=== PATIENT | male | born 1955 | race Caucasian/White ===

== ENCOUNTER 2020-06-06 03:15 | Inpatient (IN) | payer MEDICARE, OTHER, SELFPAY ==
[2020-06-06] VITALS (15 sets, daily range): BP systolic 100–179; BP diastolic 63–86; PULSE 56–87; RESP 12–22; TEMP 35.7–37; O2SAT 84–99; BMI 27.3
--- NOTE | 2020-06-06 03:25 | XR_ITS ---
EXAMINATION: XR CHEST CLINICAL INFORMATION: Chest pain COMPARISON: 02/05/2017 TECHNIQUE: Frontal view of the chest was obtained. FINDINGS: Cardiac leads overlie the chest. The lungs are well expanded. There is no focal consolidation, edema, or effusion. No pneumothorax. The cardiomediastinal silhouette is within normal limits. No acute osseous abnormality. IMPRESSION: No acute pulmonary finding.
--- NOTE | 2020-06-06 03:25 | ECG_ITS ---
Test Reason : WEAKNESS Blood Pressure : / mmHG Vent. Rate : 073 BPM Atrial Rate : 073 BPM P-R Int : 168 ms QRS Dur : 146 ms QT Int : 440 ms P-R-T Axes : 064 049 -11 degrees QTc Int : 484 ms Normal sinus rhythm Nonspecific ST abnormality Inferior leads Right bundle branch block Abnormal ECG When compared with ECG of 05-FEB-2017 10:31, No significant change was found Referred By: Kvng Hernandez Electronically Signed By:DIANNE RDZ MD
--- NOTE | 2020-06-06 03:27 | CT_ITS ---
EXAMINATION: CT HEAD WITHOUT CONTRAST CLINICAL INFORMATION: Dizziness. Weakness. COMPARISON: 02/06/2017 TECHNIQUE: Contiguous axial imaging was performed from the skull base to vertex without intravenous contrast. This CT examination was performed using dose optimization techniques as appropriate, variously including the following: * Automated exposure control * Adjustment of mA and/or kV according to patient size (this includes techniques or standardized protocols for targeted exams where dose is matched to indication/reason for exam; i.e. extremities or head) Use of iterative reconstruction technique DLP: 729 mGy-cm. FINDINGS: There is no evidence of acute intracranial hemorrhage or territorial infarction. No abnormal mass effect or midline shift is seen. Chronic high right frontoparietal infarct. Chronic left frontoparietal infarct as well. There is Wolfe to white matter differentiation is otherwise well preserved. No extra-axial fluid collections are identified. No hydrocephalus. Proportional prominence of the ventricles and sulcal spaces is consistent with moderate volume loss. Patchy periventricular and deep white matter hypoattenuation is consistent with moderate small vessel ischemic changes. The osseous structures and soft tissues are normal. The mastoid air cells and visualized portions of the paranasal sinuses are well aerated. IMPRESSION: No acute intracranial pathology. Volume loss with small vessel ischemic changes. Chronic bilateral frontoparietal infarcts.
[2020-06-06] MEDS: Albuterol Sulfate (0.083%) 2.5 MG/3 ML VIAL.NEB 5 MG INHALE ×2 (03:54→06:24)
[2020-06-06] MEDS: methylPREDNISolone Sod Succ/PF 125 MG/2 ML VIAL 60 MG IVPUSH (03:57)
--- NOTE | 2020-06-06 04:04 | ED.WEAKNESS ---
HPI - Weakness General Chief complaint: Weakness Stated complaint: WEAKNESS Time Seen by Provider: 06/06/20 03:24 Source: patient Mode of arrival: ambulatory History of Present Illness HPI Narrative: patient states of generalized weakness for the past Couple of hours. States some mild shortness of breath however no cough. denies chest pain denies abdominal pain. Patient states got up to to go to the bathroom this evening at about 03:00 and felt overall weakness. Patient went to bed at 21:00 last night and felt okay. patient does have an old stroke in which family states has bilateral weakness which patient now states feeling more weakness to all extremities x4. Denies headache denies change in vision denies any new numbness MD Complaint: generalized weakness Onset (ago): hour(s) ( 3) Location: generalized Related Data Allergies Allergy/AdvReac Type Severity Reaction Status Date / Time No Known Allergies Allergy Unknown NKA Unverified 05/12/20 14:44 Review of Systems Review of Systems: Constitutional : No Weight loss, No Fever, No Chills, No Night Sweats, No Fatigue, No Malaise ENT/Mouth : No Hearing loss, No Ear Pain, No Nasal Congestion, No Sinus Pain, No Hoarseness, No sore throat, No Rhinorrhea, No Swallowing Difficulty Eyes: No Eye Pain, No Swelling, No Redness, No Foreign Body, No Discharge, No Vision Changes Cardiovascular : No Chest Pain, No SOB, No Dyspnea on Exertion, No Orthopnea, No Edema, No Palpitations Respiratory : No Cough, No Sputum, No Wheezing, No Smoke Exposure, No Dyspnea Gastrointestinal : No Nausea, No Vomiting, No Diarrhea, No Constipation, No abdominal Pain, No Hematochezia, No Melena Genitourinary : no irregular bleeding, No Dysuria, No Urinary Frequency, No Hematuria, No Urinary Incontinence, No Urgency, No Flank Pain, No Urinary Flow Changes, No Hesitancy Musculoskeletal : No joint pain, No Myalgias, No Joint Swelling Skin : No Skin Lesions, No rash Neuro : generalizedWeakness, No Numbness, No Paresthesias, No Loss of Consciousness, No Dizziness, No Headache Psych : No Anxiety/Panic, No Depression, No SI/HI/AH/VH, No Social Issues, Heme/Lymph: No Bruising, No Bleeding,No Lymphadenopathy Endocrine : No Polyuria, No Polydipsia, No Temperature Intolerance [facility] Past Medical History Medical History (Updated 06/06/20 @ 04:26 by Kvng Hernandez DO) COPD (chronic obstructive pulmonary disease) CVA (cerebral vascular accident) Diabetes mellitus type 1 Dizziness Hypertension Surgical History (Updated 06/06/20 @ 04:05 by Kvng Hernandez DO) History of percutaneous coronary intervention Social History Social History Smoking Status: Current some day smoker Use of substances other than those prescribed or required for medical reasons: No Advance Directives: No Physical Exam Vital Signs: Vital Signs: Vital Signs Temp Pulse Resp BP Pulse Ox 06/06/20 04:00 73 18 06/06/20 03:25 20 84 L 06/06/20 03:22 97.9 F 71 18 142/75 H 94 Body Mass Index 27.3 pulse ox 94% reviewed by me is normal Appearance: Alert. Oriented X3. No acute distress. Eyes: Pupils equal, round and reactive to light. ENT: Pharynx normal. Neck: Normal inspection. Neck supple. No lymph nodes noted. No crepitus CVS: Normal heart rate and rhythm. Pulses normal. Normal S1 and S2 Respiratory: mild respiratory distress. Breath sounds with bilateral Wheezing. No rales no rhonchi Abdomen: Soft and nontender. No rigidity. No distention. good BS x4 Skin: Skin warm and dry. Normal skin color. Normal skin turgor. Extremities: No lower extremity edema. Neurovascular intact to all extremities however generalized weakness to extremities x4 no slurred speech. No time deviation. No Lacerations. No Rash Neuro: Oriented X 3. No motor deficit. No sensory deficit. Moving all extermities. No slurred speech. Course Course Course Narrative: patient with generalized weakness however differential diagnosis does include stroke however no tPA secondary to out of window differential diagnosis includes stroke, COPD exacerbation, acute coronary syndrome, UTI Reevaluation(s) Reevaluation #1: further history noted that patient has been weak for the past 2 days and unable to care for self. Patient unable to walk tonight in which the called 911 Time: 04:23 Reevaluation #2: improvement lung function with IV medications and albuterol. I believe this patient has COPD exacerbation with hypoxia will start sepsis protocol IV antibiotics await for lactate acid I spoke with hospitalist in regards to admission will accept Time: 04:24 [facility] Medical Records Attestation: I reviewed the patient's medical records. Medical records narrative: last admission was in January of 2017 with discharge of CVA Lab Data Result diagrams: 06/06/20 03:59 06/06/20 03:59 Labs: Lab Results 06/06/20 Range/Units 03:59 WBC 8.2 (4.8-10.8) X10*3/uL RBC 4.73 (4.60-5.80) X10*6/uL Hgb 14.0 (14.0-18.0) g/dl Hct 41.8 L (42-52) % MCV 88.4 (80-98) fL MCH 29.6 (27.0-33.0) pg MCHC 33.5 (31.0-36.0) g/dl RDW 12.8 (11.0-16.0) % Plt Count 140 L (160-400) X10*3/uL MPV 8.6 L (9.4-12.4) fL Immature Gran % (Auto) 0.7 H (0.0-0.4) % Neut % (Auto) 60.2 (45-73) % Lymph % (Auto) 23.7 (20-40) % Tarrant % (Auto) 11.2 H (2-11) % Eos % (Auto) 3.3 (0-4) % Baso % (Auto) 0.9 (0-2) % Lymph # (Auto) 1.9 (1.2-4.9) X10*3/uL T[place] # (Auto) 0.9 (0.1-1.2) X10*3/uL Eos # (Auto) 0.3 (0.0-0.4) X10*3/uL Baso # (Auto) 0.1 (0.0-0.2) X10*3/uL Abs Immat Gran (auto) 0.06 H (0.00-0.03) X10*3/uL Absolute Neuts (auto) 4.9 (2.0-8.3) X10*3/uL Absolute Nucleated RBC 0.000 (0.0-0.012) X10*3/uL Nucleated RBC % (auto) 0.0 (0.0-0.2) /100WBC ECG Data Attestation: I personally reviewed and interpreted this ECG as follows: Interpretation: right bundle branch block. normal p.r. intervals. 73 beats per minute. Left side axis. Nonspecific ST changes Critical Care Time Critical Care Time Critical Care Time: Yes Total Critical Care Time: 35 Attestation: I tested critical care time spent with patient Discharge Plan Discharge Clinical Impression: COPD with hypoxia, Weakness
[2020-06-06 04:08] LABS: MANUAL DIFF FLAG NO
[2020-06-06 04:10] LABS: Basophils Absolute Auto 0.1 X10*3/uL (0.0-0.2); Basophils Percent Auto 0.9 % (0-2); Eosinophils Absolute Auto 0.3 X10*3/uL (0.0-0.4); Eosinophils Percent Auto 3.3 % (0-4); Hematocrit 41.8 % (42-52); Imm Gran Abs Auto 0.06 X10*3/uL (0.00-0.03); Imm Gran Pct Auto 0.7 % (0.0-0.4); Lymphocytes Absolute Auto 1.9 X10*3/uL (1.2-4.9); Lymphocytes Percent Auto 23.7 % (20-40); Mean Corpuscular HGB Conc 33.5 g/dl (31.0-36.0); Mean Corpuscular Hemoglobin 29.6 pg (27.0-33.0); Mean Corpuscular Volume 88.4 fL (80-98); Mean Platelet Volume 8.6 fL (9.4-12.4); Monocytes Absolute Auto 0.9 X10*3/uL (0.1-1.2); Monocytes Percent Auto 11.2 % (2-11); Neutrophils Absolute Auto 4.9 X10*3/uL (2.0-8.3); Neutrophils Percent Auto 60.2 % (45-73); Platelet Count 140 X10*3/uL (160-400); Red Blood Count 4.73 X10*6/uL (4.60-5.80); Red Cell Distribution Width 12.8 % (11.0-16.0); White Blood Count 8.2 X10*3/uL (4.8-10.8)
[2020-06-06] MEDS: levoFLOXacin/D5W 750 MG/150 ML PIGGYBACK 100 MG IV (04:37)
[2020-06-06 04:38] LABS: Lactic Acid 2.5 mmol/L (0.5-2.0)
[2020-06-06 04:39] LABS: B Type Natriuretic Peptide 71 pg/mL (<100); Troponin-I High Sensitivity 8.6 ng/L (<3.5-35.0)
[2020-06-06 04:51] LABS: Alanine Aminotransferase 14 U/L (0-40); Albumin Level 3.8 g/dL (3.5-5.0); Alkaline Phosphatase 149 U/L (39-117); Anion Gap 14 (12-20); Aspartate Amino Transferase 9 U/L (5-37); Bilirubin Direct < 0.2 mg/dL (0.0-0.5); Bilirubin Total 0.5 mg/dL (0.0-1.0); Blood Urea Nitrogen 30 mg/dL (9-16); Calcium 8.6 mg/dL (8.4-10.2); Carbon Dioxide 24 mmol/L (22-29); Chloride 102 mmol/L (96-108); Creatinine Clr Calc Pharmacy 42.4; Estimated Glomerular Filt Rate 43; Glucose Random 332 mg/dL (60-115); Lipase 57 U/L (8-78); Potassium 4.3 mmol/l (3.3-5.1); Sodium 136 mmol/L (135-145); Total Protein 6.8 g/dL (6.5-8.0)
--- NOTE | 2020-06-06 05:23 | PM.IMHP ---
History of Present Illness Date of Service: 06/06/20 Chief Complaint: weakness, hypoxic This is a 64-year-old male with small to past medical history is as below who presents to the hospital with complaints of generalized weakness, and shortness of breath. Patient is slightly confused and not sure why he is in the hospital but he knows that he has been weak . patient himself denies any shortness of breath coughing or sputum production. He has no fever or chills. On arrival to the ED patient was hypoxic at 84%. Patient does not use oxygen at baseline. He is also complaining of urinary retention that has been going on for few days. Denies any dysuria or urgency. review of systems otherwise negative on arrival to the ED patient's temperature of 97.9?, pulse rate 71, respiratory rate of 18, blood pressure of 142/75, oxygen of 94% on room air that dropped to 84% on ambulation in the room. Labs are significant for a BUN of 30, creatinine of 1.6, lactic acid of 2.5 past medical history is obtained from chart past medical history: CAD, COPD, CVA with left-sided weakness, depression, hypertension, hyperlipidemia, diabetes mellitus, pneumonia past surgical history: PCI with stents, tonsillectomy family history: Unknown social history: Comes from home, lives with his , the currently nonsmoker, denies any alcohol or illicit drug use Review of Systems Review of Systems: Yes all other systems are reviewed and are negative [facility] Medical History COPD (chronic obstructive pulmonary disease) CVA (cerebral vascular accident) Diabetes mellitus type 1 Dizziness Hypertension Surgical History History of percutaneous coronary intervention Social History Smoking Status: Current some day smoker Use of substances other than those prescribed or required for medical reasons: No Advance Directives: No Meds Allergies Allergy/AdvReac Type Severity Reaction Status Date / Time No Known Allergies Allergy Unknown NKA Unverified 05/12/20 14:44 Home Medications Medication Instructions Recorded Confirmed Type atenolol 2 tab PO DAILY 06/06/20 06/06/20 History clopidogrel 1 tab PO DAILY 06/06/20 06/06/20 History glipizide 1 tab PO BID 06/06/20 06/06/20 History hydralazine 1 tab PO BID 06/06/20 06/06/20 History lorazepam 1 tab PO BID PRN 06/06/20 06/06/20 History lovastatin 1 tab PO BEDTIME 06/06/20 06/06/20 History spironolactone 1 tab PO DAILY 06/06/20 06/06/20 History venlafaxine 1 cap PO DAILY 06/06/20 06/06/20 History venlafaxine 1 cap PO DAILY 06/06/20 06/06/20 History Physical Exam Vital Signs and Narrative: Vital Signs: Last Vital Signs Temp 97.9 F 06/06/20 03:22 Pulse 73 06/06/20 04:00 Resp 18 06/06/20 04:00 BP 142/75 H 06/06/20 03:22 Pulse Ox 84 L 06/06/20 03:25 Body Mass Index 27.3 Const: General: cooperative and no acute distress Orientation/consciousness: patient oriented x3 Eyes: General: appearance normal, both eyes and all related structures Pupils: Equal, round and reactive pupils present Resp: Other: no wheezing, rhonchi Effort & Inspection: normal respiratory effort and able to speak in complete sentences Auscultation: clear to auscultation bilaterally Cardio: Rate: regular rate Rhythm: regular rhythm GI: Palpation (GI): Soft to palpation Auscultation: normal bowel sounds Skin: General skin exam: no rashes or lesions noted Neuro: General: patient oriented x3 Cranial nerves: Yes Equal, round and reactive pupils present Cognition (Neuro): normal cognition Extrem: General: Yes normal to inspection and Yes no pedal edema Results Labs Labs: Laboratory Tests 06/06/20 06/06/20 06/06/20 03:59 03:59 03:59 WBC 8.2 RBC 4.73 Hgb 14.0 Hct 41.8 L MCV 88.4 MCH 29.6 MCHC 33.5 RDW 12.8 Plt Count 140 L MPV 8.6 L Immature Gran % (Auto) 0.7 H Neut % (Auto) 60.2 Lymph % (Auto) 23.7 Snyder % (Auto) 11.2 H Eos % (Auto) 3.3 Baso % (Auto) 0.9 Lymph # (Auto) 1.9 Snyder # (Auto) 0.9 Eos # (Auto) 0.3 Baso # (Auto) 0.1 Abs Immat Gran (auto) 0.06 H Absolute Neuts (auto) 4.9 Absolute Nucleated RBC 0.000 Nucleated RBC % (auto) 0.0 Sodium 136 Potassium 4.3 Chloride 102 Carbon Dioxide 24 Anion Gap 14 BUN 30 H Creatinine 1.60 H Estim Creat Clear Calc 42.4 Estimated GFR 43 Random Glucose 332 H Lactic Acid 2.5 H* Calcium 8.6 Total Bilirubin 0.5 Direct Bilirubin < 0.2 AST 9 ALT 14 Alkaline Phosphatase 149 H Troponin I High Sens B-Natriuretic Peptide Total Protein 6.8 Albumin 3.8 Lipase 57 06/06/20 03:59 WBC RBC Hgb Hct MCV MCH MCHC RDW Plt Count MPV Immature Gran % (Auto) Neut % (Auto) Lymph % (Auto) Snyder % (Auto) Eos % (Auto) Baso % (Auto) Lymph # (Auto) Snyder # (Auto) Eos # (Auto) Baso # (Auto) Abs Immat Gran (auto) Absolute Neuts (auto) Absolute Nucleated RBC Nucleated RBC % (auto) Sodium Potassium Chloride Carbon Dioxide Anion Gap BUN Creatinine Estim Creat Clear Calc Estimated GFR Random Glucose Lactic Acid Calcium Total Bilirubin Direct Bilirubin AST ALT Alkaline Phosphatase Troponin I High Sens 8.6 B-Natriuretic Peptide 71 Total Protein Albumin Lipase Assessment and Plan (1) COPD with hypoxia: Status: Acute (2) Lactic acidosis: Status: Acute (3) Weakness: Status: Acute (4) Failure to thrive: Status: Acute (5) Diabetes mellitus type 1: Status: Acute (6) Hypertension: Status: Acute this is a 64-year-old male who presents to the hospital with hypoxia. # acute hypoxic respiratory failure - 2/2 copd exacerbation - has mild cough, no wheezing, no sputum production - no evidence of pneumonia or COVID-19 infection plan: - received high-dose of Solu-Medrol in the ED, will give prednisone 20 mg daily as patient has no wheezing and very minimal COPD symptoms - DuoNeb scheduled and p.r.n. - O2 as required # acute on chronic COPD exacerbate - no pneumonia, no evidence of COVID-19 infection - patient received high-dose of Solu-Medrol in the ED, will continue with prednisone, DuoNeb p.r.n. and scheduled # lactic acidosis - unclear source possibly secondary to hypoxia - no evidence of infection - UA collection is pending - will start him on fluid and trend # weakness - most likely decondition - will consult PT OT for possible placement # hypertension - stable - continue home regimen # diabetes - will start low-dose sliding scale insulin - diabetic diet DVT prophylaxis: Lovenox date of service 06/06/2020
[2020-06-06 05:53] LABS: Glucose Urine UA 500 MG/DL (NEG); Leukocyte Esterase Urine NEG (NEG); Nitrite Urine NEG (NEG); PH 5.5 (5.0-8.0); Urine Blood TRACE (NEG); Urine Ketones NEG (NEG); Urine Protein TRACE MG/DL (NEG-TRACE)
[2020-06-06 05:54] LABS: Appearance Urine CLEAR; Color Urine COLORLESS
[2020-06-06 05:59] LABS: RBC Urine 0-2 /HPF (0); Squamous Epithelial Cell Urine TRACE /LPF; WBC Urine 0-2 /HPF (0-4)
[2020-06-06 06:06] LABS: Reflex Lactate? Lactic Acid Added
--- NOTE | 2020-06-06 06:27 | PC.NURSE ---
urine incontinent. patient became hypoxic in 90s with adventicious breath sounds. 2nd 1hr long givne.
--- NOTE | 2020-06-06 06:29 | PC.NURSE ---
attempted to give report. rn unavailable.
--- NOTE | 2020-06-06 06:30 | PC.NURSE ---
REPORT GIVEN TO ERIK MARTINEZ. NO QUESTIONS
[2020-06-06 07:11] LABS: ~Lactic Acid-LAB USE ONLY 2.2 mmol/L (0.5-2.0)
[2020-06-06 07:38] LABS: Glucose, Whole Blood 372 mg/dL (60-115)
[2020-06-06] MEDS: predniSONE 20 MG TABLET PO (07:55)
[2020-06-06] MEDS: Venlafaxine HCl ER 150 MG CAP.ER.24H PO (07:56)
[2020-06-06] MEDS: Venlafaxine HCl ER 75 MG CAP.ER.24H PO (07:56)
[2020-06-06] MEDS: Clopidogrel Bisulfate 75 MG TABLET PO (07:56)
[2020-06-06] MEDS: Lactated Ringers 1,000 ML 80 ML IVCONT ×2 (07:56→20:22)
[2020-06-06] MEDS: atenoloL 50 MG TABLET 100 MG PO (08:03)
[2020-06-06] MEDS: Spironolactone 25 MG TABLET PO (08:03)
[2020-06-06] MEDS: hydrALAZINE HCl 25 MG TABLET PO ×2 (08:04→21:35)
[2020-06-06] MEDS: Enoxaparin Sodium 40 MG/0.4 ML SYRINGE SUBCUT (08:04)
[2020-06-06] MEDS: 0.9 % Sodium Chloride Flush 3 ML SYRINGE IVFLUSH ×2 (08:05→17:17)
[2020-06-06] MEDS: Albuterol/Iprat 2.5/0.5MG 3 ML AMPUL.NEB INHALE ×2 (08:09→19:31)
[2020-06-06 08:22] LABS: Reflex Lactate? 2 Y
[2020-06-06] MEDS: Insulin Lispro 100 UNIT/ML 3 ML VIAL SUBCUT ×3 (09:08→17:17)
[2020-06-06] MEDS: glipiZIDE 10 MG TABLET PO ×2 (09:08→21:35)
[2020-06-06 09:15] LABS: ~Lactic Acid-LAB USE ONLY 2.8 mmol/L (0.5-2.0)
--- NOTE | 2020-06-06 11:42 | MHC.CLN ---
RECOMMEND 1800 DM 2GM NA DIET R/T HX DM AND CAD
[2020-06-06 11:44] LABS: Glucose, Whole Blood 387 mg/dL (60-115)
[2020-06-06 13:48] LABS: SARS COV2 PCR INHOUSE NEGATIVE (Negative)
--- NOTE | 2020-06-06 16:03 | HO.PM.IMPN ---
Subjective Subjective Date of Service: 06/06/20 Interval History: COPD exacerbation, htn Review of Systems patient says shortness of breath slowly improving, denies any cough or phlegm Physical Exam Vital Signs: Vital Signs: Vital Signs Temp Pulse Resp BP Pulse Ox 06/06/20 15:49 97.6 F 71 18 161/86 H 96 06/06/20 14:35 20 161/83 H 97 06/06/20 12:00 96.3 F L 71 06/06/20 08:13 98 F 86 20 06/06/20 08:04 86 138/80 06/06/20 08:03 86 138/80 06/06/20 07:37 98 F 56 20 100/63 99 06/06/20 07:00 96.8 F 87 22 H 179/80 H 98 06/06/20 06:00 18 06/06/20 05:55 98.6 F 80 12 174/68 H 06/06/20 04:00 73 18 06/06/20 03:25 20 84 L 06/06/20 03:22 97.9 F 71 18 142/75 H 94 Body Mass Index 27.3 Physical exam: cvs: rrr, [id number] , no murmur res: diminished breath sound, has wheezing abd: no rebound or guarding ,nt, bs present. ext pulses present , no cyanosis neuro: axo3 , nonfocal. Objective Data Current Medications Generic Name Dose Route Start Last Admin Trade Name Freq PRN Reason Stop Dose Admin Acetaminophen 650 mg 06/06/20 07:27 Acetaminophen 325 Mg Tablet PO Q6H PRN Pain, Mild (Pain Scale 1-3) Albuterol/Ipratropium 3 ml 06/06/20 08:00 06/06/20 13:22 Albuterol/Iprat 2.5/0.5mg 3 Ml Ampul.Neb INHALE Not Given RQ6H WHILE AWAKE RASHI Albuterol/Ipratropium 3 ml 06/06/20 05:20 Albuterol/Iprat 2.5/0.5mg 3 Ml Ampul.Neb INHALE RQ4H PRN Shortness of Breath/Wheezing Atenolol 100 mg 06/06/20 09:00 06/06/20 08:03 Atenolol 50 Mg Tablet PO 100 mg DAILY [facility] Administration Protocol Clopidogrel Bisulfate 75 mg 06/06/20 09:00 06/06/20 07:56 Clopidogrel Bisulfate 75 Mg Tablet PO 75 mg DAILY RASHI Administration Docusate Sodium 100 mg 06/06/20 07:27 Docusate Sodium 100 Mg Capsule PO DAILY PRN Constipation Enoxaparin Sodium 40 mg 06/06/20 08:00 06/06/20 08:04 Enoxaparin Sodium 40 Mg/0.4 Ml Syringe SUBCUT 40 mg Q24H RASHI Administration Glipizide 10 mg 06/06/20 09:00 06/06/20 09:08 Glipizide 10 Mg Tablet PO 10 mg BID RASHI Administration Hydralazine HCl 25 mg 06/06/20 09:00 06/06/20 08:04 Hydralazine Hcl 25 Mg Tablet PO 25 mg BID RASHI Administration Protocol Lactated Ringer's 1,000 mls @ 80 mls/hr 06/06/20 05:45 06/06/20 07:56 Lr IVCONT 80 mls/hr .[id number] RASHI Administration Insulin Human Lispro 0 unit 06/06/20 07:30 06/06/20 12:13 Insulin Lispro 100 Unit/Ml 3 Ml Vial SUBCUT 10 unit QIDACHS RASHI Administration Protocol Lorazepam 0.5 mg 06/06/20 07:27 Lorazepam 0.5 Mg Tablet PO BID PRN anxiety Prednisone 20 mg 06/06/20 09:00 06/06/20 07:55 Prednisone 20 Mg Tablet PO 20 mg DAILY RASHI Administration Sodium Chloride 3 ml 06/06/20 08:00 06/06/20 08:05 0.9 % Sodium Chloride Flush 3 Ml Syringe IVFLUSH 3 ml QSHIFT RASHI Administration Spironolactone 25 mg 06/06/20 09:00 06/06/20 08:03 Spironolactone 25 Mg Tablet PO 25 mg DAILY RASHI Administration Protocol Venlafaxine HCl 75 mg 06/06/20 09:00 06/06/20 07:56 Venlafaxine Hcl Er 75 Mg Cap.Er.24h PO 75 mg DAILY RASHI Administration Venlafaxine HCl 150 mg 06/06/20 09:00 06/06/20 07:56 Venlafaxine Hcl Er 150 Mg Cap.Er.24h PO 150 mg DAILY RASHI Administration Labs CBC & Chem 7: 06/06/20 03:59 06/06/20 03:59 Assessment and Plan (1) COPD with hypoxia: Status: Acute (2) Hypertension: Status: Acute (3) Lactic acidosis: Status: Acute (4) Weakness: Status: Acute (5) Failure to thrive: Status: Acute (6) Diabetes mellitus type 1: Status: Acute Assessment and Plan: this is a 64-year-old male who presents to the hospital with hypoxia. 1.intially thought acute hypoxic respiratory failure - 2/2 copd exacerbation has mild cough, no wheezing, no sputum production no evidence of pneumonia or COVID-19 infection continue nebs, steroids, p.r.n. oxygen as needed. 2. lactic acidosis: probably multifactorial, uncontrolled diabetes, secondary to hypoxia - no evidence of infection chest x-ray and UA negatived, blood culture pending will hold off any antibiotics, and defer lactic acid repeat unless clinical situation changes. 3. weakness- most likely decondition will consult PT OT for possible placement 4.JANEE ?:hypertension - stable - continue home regimen 5. diabetes: fs is running in 300's range probably related to steroid use, will check hemoglobin A1c will start the patient fingerstick with Adjustedsliding scale coverage. - diabetic diet
[2020-06-06 16:26] LABS: Glucose, Whole Blood 252 mg/dL (60-115)
[2020-06-06 20:21] LABS: Glucose, Whole Blood 194 mg/dL (60-115)
[2020-06-07] VITALS: BP 174/76; PULSE 76; RESP 18; TEMP 36.6; O2SAT 97
[2020-06-07 04:00] VITALS: BP 152/65; PULSE 75; RESP 18; TEMP 36.9; O2SAT 93
[2020-06-07 06:25] LABS: MANUAL DIFF FLAG NO
[2020-06-07 06:43] LABS: Basophils Percent Auto 0.2 % (0-2); Eosinophils Percent Auto 0.2 % (0-4); Hematocrit 38.4 % (42-52); Hemoglobin 13.1 g/dl (14.0-18.0); Imm Gran Abs Auto 0.09 X10*3/uL (0.00-0.03); Imm Gran Pct Auto 0.6 % (0.0-0.4); Lymphocytes Absolute Auto 1.5 X10*3/uL (1.2-4.9); Lymphocytes Percent Auto 10.3 % (20-40); Mean Corpuscular HGB Conc 34.1 g/dl (31.0-36.0); Mean Corpuscular Volume 88.1 fL (80-98); Mean Platelet Volume 8.8 fL (9.4-12.4); Monocytes Absolute Auto 1.2 X10*3/uL (0.1-1.2); Monocytes Percent Auto 8.8 % (2-11); Neutrophils Absolute Auto 11.2 X10*3/uL (2.0-8.3); Neutrophils Percent Auto 79.9 % (45-73); Platelet Count 135 X10*3/uL (160-400); Red Blood Count 4.36 X10*6/uL (4.60-5.80); Red Cell Distribution Width 12.9 % (11.0-16.0)
[2020-06-07 07:03] LABS: Anion Gap 13 (12-20); Blood Urea Nitrogen 25 mg/dL (9-16); Calcium 8.2 mg/dL (8.4-10.2); Carbon Dioxide 23 mmol/L (22-29); Chloride 104 mmol/L (96-108); Estimated Glomerular Filt Rate > 60; Glucose Random 207 mg/dL (60-115); Potassium 4.1 mmol/l (3.3-5.1); Sodium 136 mmol/L (135-145)
[2020-06-07] MEDS: Albuterol/Iprat 2.5/0.5MG 3 ML AMPUL.NEB INHALE ×2 (07:35→13:57)
[2020-06-07 08:00] VITALS: BP 147/67; PULSE 77; RESP 16; TEMP 36.6; O2SAT 97
[2020-06-07] MEDS: Lactated Ringers 1,000 ML 80 ML IVCONT (08:08)
[2020-06-07] MEDS: Insulin Lispro 100 UNIT/ML 3 ML VIAL SUBCUT ×2 (08:08→13:42)
[2020-06-07] MEDS: atenoloL 50 MG TABLET 100 MG PO (08:09)
[2020-06-07] MEDS: predniSONE 20 MG TABLET PO (08:09)
[2020-06-07] MEDS: Clopidogrel Bisulfate 75 MG TABLET PO (08:09)
[2020-06-07] MEDS: hydrALAZINE HCl 25 MG TABLET PO (08:09)
[2020-06-07] MEDS: glipiZIDE 10 MG TABLET PO (08:09)
[2020-06-07] MEDS: Venlafaxine HCl ER 150 MG CAP.ER.24H PO (08:09)
[2020-06-07] MEDS: Venlafaxine HCl ER 75 MG CAP.ER.24H PO (08:09)
[2020-06-07] MEDS: Enoxaparin Sodium 40 MG/0.4 ML SYRINGE SUBCUT (08:10)
[2020-06-07] MEDS: Spironolactone 25 MG TABLET PO (08:10)
[2020-06-07] MEDS: 0.9 % Sodium Chloride Flush 3 ML SYRINGE IVFLUSH ×2 (08:10)
[2020-06-07 08:25] LABS: Estimated Average Glucose 246 mg/dL; Hemoglobin A1c % 10.2 %
[2020-06-07 08:34] LABS: Glucose, Whole Blood 214 mg/dL (60-115)
--- NOTE | 2020-06-07 11:20 | MHC.CM.PN ---
CM met with patient and at the bedside who reports patient does need assistance with bathing and dsg, lives with . states she does have a HCP and will bring in a copy. Discussed discharge plan, [facility] if going home and [facility] and [facility]. Referrals made via allscripts. Will need BLS transport. CM will continue to follow patient for discharge needs.
[2020-06-07 11:28] VITALS: BP 133/67; PULSE 67; RESP 16; TEMP 36.6; O2SAT 97
[2020-06-07 11:34] LABS: Glucose, Whole Blood 271 mg/dL (60-115)
--- NOTE | 2020-06-07 16:35 | P.DS_ITS ---
DS: Providers Provider Date of admission: 06/06/20 05:20 Primary care physician: Kayy Pabon NP DS: Diagnosis Discharge Diagnosis (1) COPD with hypoxia: Status: Acute (2) Hypertension: Status: Acute (3) Lactic acidosis: Status: Acute (4) Weakness: Status: Acute (5) Failure to thrive: Status: Acute (6) Diabetes mellitus type 1: Status: Acute DS: Summary Hospital Course Hospital Course: HPI:64-year-old male with small to past medical history is as below who presents to the hospital with complaints of generalized weakness, and shortness of breath. Patient is slightly confused and not sure why he is in the hospital but he knows that he has been weak . patient himself denies any shortness of breath coughing or sputum production. He has no fever or chills. On arrival to the ED patient was hypoxic at 84%. Patient does not use oxygen at baseline. He is also complaining of urinary retention that has been going on for few days. Denies any dysuria or urgency. hospital course problem lund section: 64-year-old male who presents to the hospital with hypoxia. 1.intially thought acute hypoxic respiratory failure - 2/2 copd exacerbation Patient was started on nebs, steroids and supportive care with oxygen: Subsequently patient improved: patient going to rehab with the albuterol , and steroids, added Breo. 2. lactic acidosis: probably multifactorial, uncontrolled diabetes, secondary to hypoxia no clear evidence of infection chest x-ray and UA negatived, blood culture preliminary negative@ 24 hours. Patient denies any cough or phlegm mild leukocytosis probably related to steroids. will hold off any antibiotics. 3. weakness- most likely decondition seen by PT recommended rehab, patient is going to rehab today. 4.JANEE ?: Improved with gentle hydration. monitor renal function and electrolytes in rehab and further management outpatient as per rehab. 5. diabetes: Fingersticks was fluctuating between 200 range hemoglobin A1c is 10 will continue patient's hypoglycemic, add fingersticks with coverage, may need to add Lantus in rehab if persistently elevated blood sugars. Above management discussed with the patient and his in detail length both understand and in agreement with the above plan, time spent 50 minutes and 50% time spent on counseling. Significant findings: As above. Procedures performed: None. Treatment and response: As above. Complications: None. Time Spent with Patient Time attestation: Total time spent providing and/or coordinating discharge services: 50 minutes Physical Exam Vital Signs: Vital Signs: Vital Signs Temp Pulse Resp BP Pulse Ox 06/07/20 11:28 97.8 F 67 16 133/67 97 06/07/20 08:00 97.9 F 77 16 147/67 H 97 06/07/20 04:00 98.5 F 75 18 152/65 H 93 06/07/20 00:00 97.8 F 76 18 174/76 H 97 06/06/20 21:35 71 169/82 H 06/06/20 19:48 98.1 F 71 18 169/82 H 96 Body Mass Index 27.3 DS: Data Data Completed and Pending Labs on day of discharge: Labs from last 24 hours 06/07/20 06/07/20 06/07/20 11:30 08:03 05:39 WBC RBC Hgb Hct MCV MCH MCHC RDW Plt Count MPV Immature Gran % (Auto) Neut % (Auto) Lymph % (Auto) Mobile % (Auto) Eos % (Auto) Baso % (Auto) Lymph # (Auto) Mobile # (Auto) Eos # (Auto) Baso # (Auto) Abs Immat Gran (auto) Absolute Neuts (auto) Absolute Nucleated RBC Nucleated RBC % (auto) Sodium 136 Potassium 4.1 Chloride 104 Carbon Dioxide 23 Anion Gap 13 BUN 25 H Creatinine 1.15 Estim Creat Clear Calc 59.0 Estimated GFR > 60 POC Glucose 271 H 214 H Random Glucose 207 H D Estimat Average Glucose Hemoglobin A1c % Calcium 8.2 L 06/07/20 06/06/20 06/06/20 05:39 20:17 04:06 WBC 14.0 H RBC 4.36 L Hgb 13.1 L Hct 38.4 L MCV 88.1 MCH 30.0 MCHC 34.1 RDW 12.9 Plt Count 135 L MPV 8.8 L Immature Gran % (Auto) 0.6 H Neut % (Auto) 79.9 H Lymph % (Auto) 10.3 L Mobile % (Auto) 8.8 Eos % (Auto) 0.2 Baso % (Auto) 0.2 Lymph # (Auto) 1.5 Mobile # (Auto) 1.2 Eos # (Auto) 0.0 Baso # (Auto) 0.0 Abs Immat Gran (auto) 0.09 H Absolute Neuts (auto) 11.2 H Absolute Nucleated RBC 0.000 Nucleated RBC % (auto) 0.0 Sodium Potassium Chloride Carbon Dioxide Anion Gap BUN Creatinine Estim Creat Clear Calc Estimated GFR POC Glucose 194 H Random Glucose Estimat Average Glucose 246 Hemoglobin A1c % 10.2 Calcium Preliminary micro results at discharge 06/06/20 03:59 Blood Culture - Preliminary Blood - Venous No growth after 24 hours. 06/06/20 03:59 Blood Culture - Preliminary Blood - Venous No growth after 24 hours. Discharge Plan Discharge Patient Disposition: Xfer Other Referrals: Tom Byers [Outside] Kayy Pabon [employer] [Primary Care Provider] - Discharge Medications: New docusate sodium 100 mg Capsule 100 mg PO DAILY PRN (Reason: Constipation) Qty: 30 RF: 0 prednisone 20 mg Tablet 20 mg PO DAILY Qty: 5 RF: 0 insulin lispro [Humalog U-100 Insulin] 100 unit/mL Solution See Protocol unit subcut QIDACHS Qty: 10 RF: 0 ipratropium-albuterol 0.5 mg-3 mg(2.5 mg base)/3 mL Solution For Nebulization 3 ml inhalation RQ4H PRN (Reason: Shortness Of Breath/Wheezing) Qty: 15 RF: 0 Breo Ellipta 100-25 mcg/dose blister with device 1 inh inhalation Q24H Qty: 28 RF: 0 albuterol sulfate 5 mg/mL solution for nebulization 2.5 mg inhalation Q6H PRN (Reason: bronchospasm) Qty: 20 RF: 0 Continued venlafaxine 75 mg capsule,extended release 24hr 1 cap PO DAILY RF: 0 glipizide 10 mg tablet 1 tab PO BID RF: 0 venlafaxine 150 mg capsule,extended release 24hr 1 cap PO DAILY RF: 0 hydralazine 25 mg tablet 1 tab PO BID RF: 0 clopidogrel 75 mg tablet 1 tab PO DAILY RF: 0 spironolactone 25 mg tablet 1 tab PO DAILY RF: 0 lorazepam 0.5 mg tablet 1 tab PO BID PRN (Reason: anxiety) RF: 0 lovastatin 20 mg tablet 1 tab PO BEDTIME RF: 0 atenolol 50 mg tablet 2 tab PO DAILY RF: 0 Discharge Orders: Discharge Order (Routine); Ordered 06/07/20 Ordered By: Kit Cheek Diet: advance to your usual diet and diabetic diet Activity on Discharge: As tolerated Visit Report Forms: Patient Portal Discharge page Care Plan Goals: Patient was initially admitted to COPD exacerbation- started on nebs, steroids and subsequently improved, also has generalized weakness seen by PT and recommended rehab patient going to rehab. Health Concerns: As above. Plan of Treatment: as above.
== END 2020-06-07 17:36 | disposition other institution (70) | DRG 190 ==
LOC: HO.ED 05:13 → HO.IMC 06:05
PROVIDERS: Admitting Provider Internal Medicine; Emergency Provider Emergency Medicine; PCP Nurse Practitioner Family; Visit Provider Internal Medicine
DX: J44.1 Chronic obstructive pulmonary disease with (acute) exacerbation (principal); J96.01 Acute respiratory failure with hypoxia; E87.2 Acidosis; N17.9 Acute kidney failure, unspecified; I10 Essential (primary) hypertension; Z20.828 Contact with and (suspected) exposure to other viral communicable diseases; Z86.73 Personal history of transient ischemic attack (TIA), and cerebral infarction without residual deficits; E10.65 Type 1 diabetes mellitus with hyperglycemia; F17.210 Nicotine dependence, cigarettes, uncomplicated; Z71.6 Tobacco abuse counseling; Z79.02 Long term (current) use of antithrombotics/antiplatelets; Z79.899 Other long term (current) drug therapy
CPT/HCPCS: 36415; 70450; 71045; 80048; 80076; 81001; 82947; 83036; 83605; 83690; 83880; 84484; 85025; 87040; 87635; 93005; 94640; 97162; 97166; 99285; J1650; J1956

== ENCOUNTER 2020-06-08 07:21 | Outpatient (REF) | payer SELFPAY ==
[2020-06-08 07:42] LABS: Hematocrit 39.4 % (42-52); Hemoglobin 13.1 g/dl (14.0-18.0); Mean Corpuscular HGB Conc 33.2 g/dl (31.0-36.0); Mean Corpuscular Hemoglobin 29.6 pg (27.0-33.0); Mean Corpuscular Volume 88.9 fL (80-98); Mean Platelet Volume 8.9 fL (9.4-12.4); Platelet Count 147 X10*3/uL (160-400); Red Blood Count 4.43 X10*6/uL (4.60-5.80); Red Cell Distribution Width 13.3 % (11.0-16.0); White Blood Count 12.5 X10*3/uL (4.8-10.8)
[2020-06-08 08:11] LABS: Alanine Aminotransferase 12 U/L (0-40); Albumin Level 3.4 g/dL (3.5-5.0); Alkaline Phosphatase 91 U/L (39-117); Anion Gap 14 (12-20); Aspartate Amino Transferase 10 U/L (5-37); Bilirubin Total 0.6 mg/dL (0.0-1.0); Blood Urea Nitrogen 27 mg/dL (9-16); Calcium 8.3 mg/dL (8.4-10.2); Carbon Dioxide 26 mmol/L (22-29); Chloride 103 mmol/L (96-108); Estimated Glomerular Filt Rate 57; Glucose Random 209 mg/dL (60-115); Potassium 4.1 mmol/l (3.3-5.1); Sodium 139 mmol/L (135-145); Total Protein 6.1 g/dL (6.5-8.0)
== END 2020-06-08 07:22 | disposition home or self-care (01) ==
LOC: HO.MMNH1L 07:21
PROVIDERS: Visit Provider Family Medicine
DX: E10.9 Type 1 diabetes mellitus without complications (principal); J44.9 Chronic obstructive pulmonary disease, unspecified
CPT/HCPCS: 36415; 80053; 85027

== ENCOUNTER 2020-06-27 | Outpatient (REF) | payer SELFPAY | END 2020-06-27 00:01 | LOC: HO.MMNH3L | PROVIDERS: Visit Provider Family Medicine | DX: Z20.828 Contact with and (suspected) exposure to other viral communicable diseases (principal) | CPT/HCPCS: U0003 ==

== ENCOUNTER 2020-06-30 14:37 | Emergency (ER) | payer MEDICARE, OTHER, SELFPAY ==
[2020-06-30 14:56] VITALS: BP 136/77; BP 136/88; PULSE 65; PULSE 66; RESP 18; O2SAT 92; O2SAT 94; BMI 22.4
[2020-06-30 15:04] LABS: Glucose, Whole Blood 124 mg/dL (60-115)
[2020-06-30 15:34] VITALS: BP 136/77; PULSE 65; RESP 18; TEMP 36.9; O2SAT 94
--- NOTE | 2020-06-30 15:40 | CT_ITS ---
EXAMINATION: CT HEAD WITHOUT CONTRAST CLINICAL INFORMATION: Altered mental status. Prior history stroke. COMPARISON: CT head 06/06/2020 TECHNIQUE: Contiguous axial imaging was performed from the skull base to vertex without intravenous administration of contrast. This CT examination was performed using dose optimization techniques as appropriate, variously including the following: *Automated exposure control *Adjustment of mA and/or kV according to patient size (this includes techniques or standardized protocols for targeted exams where dose is matched to indication/reason for exam; i.e. extremities or head) *Use of iterative reconstruction technique DLP: 769 mGy-cm FINDINGS: There is no intracranial hemorrhage, hematoma, or extra-axial fluid collection. The ventricles are normal in size. There is no hydrocephalus, edema, or mass effect. Again, there chronic infarct seen bilateral frontoparietal regions, greater on the right. Severity and distribution is similar to prior study. There is no acute infarct appreciated. Involvement also includes right thalamus and there is lacunar infarct in the left rena as before. There is no visible acute territorial infarct or mass lesion. The calvarium appears intact. There is no pneumocephalus or orbital emphysema. The visualized sinuses and middle ears and mastoid air cells show no significant mucosal thickening. There are no air-fluid levels. CT/CT head/brain wo con IMPRESSION: Chronic infarcts. No acute intracranial abnormality.
--- NOTE | 2020-06-30 15:40 | ECG_ITS ---
Test Reason : WEAKNESS Blood Pressure : / mmHG Vent. Rate : 060 BPM Atrial Rate : 060 BPM P-R Int : 140 ms QRS Dur : 144 ms QT Int : 472 ms P-R-T Axes : 069 074 033 degrees QTc Int : 472 ms Normal sinus rhythm Right bundle branch block T-wave inversion in Anterior leads Nonspecific ST abnormality Inferior leads Abnormal ECG When compared with ECG of 06-JUN-2020 04:03, T wave inversion more evident in Anterior leads ST less depressed in Inferior leads Referred By: Christi Rich Electronically Signed By:DIANNE RDZ MD
--- NOTE | 2020-06-30 15:41 | PC.NURSE ---
SPOKE WITH PTS , STATES HE JUST RETURNED HOME FROM SNF, PT ADLS HAVE DECLINED, HE HAS A HARD TIME GETTING OOB, HE IS NOT EATING WELL, AND HAS SMALL FREQUENT VOIDS DARK WITH STRONG ODER. IS HAVING A DIFFICULT TIME CARING FOR PATIENT AT HOME AND REPORTS HE WAS MORE ACTIVE PRIOR TO SNF FOR [facility].
--- NOTE | 2020-06-30 15:44 | ED.WEAKNESS ---
HPI - Weakness General Chief complaint: Weakness <SHANTELLE Santillan - Last Filed: 06/30/20 16:23> Stated complaint: REFUSES TO EAT,DRINK OR GET OUT OF BED <SHANTELLE Santillan - Last Filed: 06/30/20 16:23> Time Seen by Provider: 06/30/20 15:39 <SHANTELLE Santillan - Last Filed: 06/30/20 16:23> Source: family and EMS <SHANTELLE Santillan Last Filed: 06/30/20 16:23> Mode of arrival: EMS <SHANTELLE Santillan Last Filed: 06/30/20 16:23> Limitations: altered mental status <SHANTELLE Santillan Last Filed: 06/30/20 16:23> History of Present Illness HPI Narrative: 64 y/o male with history of COPD, CVA in 2016, recent admission to [facility] for acute hypoxic respiratory failure 2/2 COPD exacerbation in May and d/c to acute rehab who presents from home with generalized weakness, altered mental status. He came home from [facility] 2 days ago. Per family patient was refusing to get out of bed there and is returning home in worse condition than when he arrived. He is weak, confused and refuses to eat, drink or get out of bed. <SHANTELLE Santillan - Last Filed: 06/30/20 16:23> MD Complaint: generalized weakness <SHANTELLE Santillan - Last Filed: 06/30/20 16:23> Onset (ago): day(s) (2) <SHANTELLE Santillan - Last Filed: 06/30/20 16:23> Duration: constant <SHANTELLE Santillan - Last Filed: 06/30/20 16:23> Location: generalized <SHANTELLE Santillan Last Filed: 06/30/20 16:23> Severity: moderate <SHANTELLE Santillan Last Filed: 06/30/20 16:23> Context: recent illness <SHANTELLE Santillan Last Filed: 06/30/20 16:23> Associated symptoms: confusion and loss of appetite <SHANTELLE Santillan Last Filed: 06/30/20 16:23> Related Data Home medications: Home Medications Medication Instructions Recorded Confirmed atenolol 2 tab PO DAILY 06/06/20 06/06/20 clopidogrel 1 tab PO DAILY 06/06/20 06/06/20 glipizide 1 tab PO BID 06/06/20 06/06/20 hydralazine 1 tab PO BID 06/06/20 06/06/20 lorazepam 1 tab PO BID PRN 06/06/20 06/06/20 lovastatin 1 tab PO BEDTIME 06/06/20 06/06/20 spironolactone 1 tab PO DAILY 06/06/20 06/06/20 venlafaxine 1 cap PO DAILY 06/06/20 06/06/20 venlafaxine 1 cap PO DAILY 06/06/20 06/06/20 Previous Rx's Medication Instructions Recorded albuterol sulfate 2.5 mg INHALATION Q6H PRN #20 ml 06/07/20 docusate sodium 100 mg PO DAILY PRN #30 cap 06/07/20 fluticasone furoate-vilanterol 1 inh INHALATION Q24H #28 ea 06/07/20 [Breo Ellipta] insulin lispro [Humalog U-100 See Protocol SUBCUT QIDACHS #10 ml 06/07/20 Insulin] ipratropium-albuterol 3 ml INHALATION RQ4H PRN #15 ml 06/07/20 prednisone 20 mg PO DAILY #5 tab 06/07/20 <SHANTELLE Santillan - Last Filed: 06/30/20 16:23> Allergies/Adverse reactions: Allergies Allergy/AdvReac Type Severity Reaction Status Date / Time No Known Allergies Allergy Unknown NKA Unverified 05/12/20 14:44 <SHANTELLE Santillan - Last Filed: 06/30/20 16:23> [facility] Past Medical History Attestation statement: The following information was validated with the patient. <SHANTELLE Santillan - Last Filed: 06/30/20 16:23> Medical History: Medical History COPD (chronic obstructive pulmonary disease) CVA (cerebral vascular accident) Diabetes mellitus type 1 Dizziness Hypertension <SHANTELLE Santillan - Last Filed: 06/30/20 16:23> Surgical History: Surgical History History of percutaneous coronary intervention <SHANTELLE Santillan - Last Filed: 06/30/20 16:23> Social History Social History: Social History Household Members: Spouse Housing: House Alcohol intake: former Smoking Status: Former smoker Second Hand Smoke Exposure: No Use of substances other than those prescribed or required for medical reasons: No Advance Directives: No Advance Directives Information Provided: No Advance Directives Date on File: 09/30/06 service: No Current occupational status: retired <SHANTELLE Santillan - Last Filed: 06/30/20 16:23> Physical Exam Vital Signs: Vital Signs: Last Vital Signs Temp 97 F 06/30/20 16:00 Pulse 64 06/30/20 23:08 Resp 18 06/30/20 23:08 BP 133/72 06/30/20 23:08 Pulse Ox 97 06/30/20 23:08 Body Mass Index 22.4 Appearance: Alert, oriented to self and place. No acute distress. Disheveled and unkempt. Eyes: Pupils equal, round and reactive to light. ENT: Pharynx normal. Neck: Normal inspection. Neck supple. CVS: Normal heart rate and rhythm. Pulses normal. Respiratory: No respiratory distress. Breath sounds normal. Abdomen: Soft and nontender. +BS x4 Skin: Skin warm and dry. Normal skin color. Normal skin turgor. No rashes. Extremities: No lower extremity edema. Neuro: generalized weakness noted <SHANTELLE Santillan - Last Filed: 06/30/20 16:23> Vital Signs: Last Vital Signs Temp 97 F 06/30/20 16:00 Pulse 64 06/30/20 23:08 Resp 18 06/30/20 23:08 BP 133/72 06/30/20 23:08 Pulse Ox 97 06/30/20 23:08 Body Mass Index 22.4 <Hilary Trevino NP - Last Filed: 07/01/20 00:36> Course Course Course Narrative: Sign-out from Christi PEPPER. Elevated troponin at 47.1. We will repeat in 2 hours. 2nd troponin 44.9. Discussion with hospitalist, hospitalists would like 3rd troponin with EKG. Third troponin is 43.0, EKG has no significant changes. 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 patient is eating, communicating, and is able to make his needs known. He is still confused at times. vital signs are hemodynamically stable, afebrile. <Hilary Trevino NP - Last Filed: 07/01/20 00:36> MDM - Weakness Lab Data Result diagrams: : 06/30/20 16:29 06/30/20 16:29 <SHANTELLE Santillan - Last Filed: 06/30/20 16:23> Labs: Lab Results 06/30/20 06/30/20 06/30/20 Range/Units 14:59 16:29 16:29 WBC 11.6 H (4.8-10.8) X10*3/uL RBC 5.27 (4.60-5.80) X10*6/uL Hgb 15.4 (14.0-18.0) g/dl Hct 45.1 (42-52) % MCV 85.6 (80-98) fL MCH 29.2 (27.0-33.0) pg MCHC 34.1 (31.0-36.0) g/dl RDW 12.9 (11.0-16.0) % Plt Count 208 D (160-400) X10*3/uL MPV 8.2 L (9.4-12.4) fL Immature Gran % (Auto) 1.8 H (0.0-0.4) % Neut % (Auto) 74.4 H (45-73) % Lymph % (Auto) 12.7 L (20-40) % [place] % (Auto) 9.9 (2-11) % Eos % (Auto) 0.7 (0-4) % Baso % (Auto) 0.5 (0-2) % Lymph # (Auto) 1.5 (1.2-4.9) X10*3/uL [place] # (Auto) 1.2 (0.1-1.2) X10*3/uL Eos # (Auto) 0.1 (0.0-0.4) X10*3/uL Baso # (Auto) 0.1 (0.0-0.2) X10*3/uL Abs Immat Gran (auto) 0.21 H (0.00-0.03) X10*3/uL Absolute Neuts (auto) 8.6 H (2.0-8.3) X10*3/uL Absolute Nucleated RBC 0.000 (0.0-0.012) X10*3/uL Nucleated RBC % (auto) 0.0 (0.0-0.2) /100WBC Sodium 133 L (135-145) mmol/L Potassium 4.1 (3.3-5.1) mmol/l Chloride 99 (96-108) mmol/L Carbon Dioxide 21 L (22-29) mmol/L Anion Gap 17 (12-20) BUN 45 H (9-16) mg/dL Creatinine 1.21 (0.5-1.4) mg/dL Estim Creat Clear Calc 56.7 Estimated GFR 60 POC Glucose 124 H (60-115) mg/dL Random Glucose 131 H (60-115) mg/dL Lactic Acid (0.5-2.0) mmol/L Calcium 7.6 L (8.4-10.2) mg/dL Magnesium 2.4 (1.6-2.6) mg/dL Total Bilirubin 0.3 (0.0-1.0) mg/dL Direct Bilirubin 0.3 (0.0-0.5) mg/dL AST 21 D (5-37) U/L ALT 21 (0-40) U/L Alkaline Phosphatase 111 D (39-117) U/L Troponin I High Sens (<3.5-35.0) ng/L Total Protein 6.0 L (6.5-8.0) g/dL Albumin 3.0 L (3.5-5.0) g/dL Urine Color Urine Appearance Urine pH (5.0-8.0) Ur Specific [place] (1.005-1.025) Urine Protein (NEG-TRACE) MG/DL Urine Glucose (UA) (NEG) MG/DL Urine Ketones (NEG) MG/DL Urine Blood (NEG) Urine Nitrite (NEG) Ur Leukocyte Esterase (NEG) Urine RBC (0) /HPF Urine WBC (0-4) /HPF Ur Squamous Epith Cells /LPF Amorphous Sediment /LPF Urine Bacteria /LPF Hyaline Casts /LPF Granular Casts /LPF Urine Opiates Screen (Not Detect) Ur Barbiturates Screen (Not Detect) Ur Phencyclidine Scrn (Not Detect) Ur Amphetamines Screen (Not Detect) U Benzodiazepines Scrn (Not Detect) Urine Cocaine Screen (Not Detect) U Marijuana (THC) Screen (Not Detect) 06/30/20 06/30/20 06/30/20 Range/Units 16:29 16:29 16:29 WBC (4.8-10.8) X10*3/uL RBC (4.60-5.80) X10*6/uL Hgb (14.0-18.0) g/dl Hct (42-52) % MCV (80-98) fL MCH (27.0-33.0) pg MCHC (31.0-36.0) g/dl RDW (11.0-16.0) % Plt Count (160-400) X10*3/uL MPV (9.4-12.4) fL Immature Gran % (Auto) (0.0-0.4) % Neut % (Auto) (45-73) % Lymph % (Auto) (20-40) % [place] % (Auto) (2-11) % Eos % (Auto) (0-4) % Baso % (Auto) (0-2) % Lymph # (Auto) (1.2-4.9) X10*3/uL [place] # (Auto) (0.1-1.2) X10*3/uL Eos # (Auto) (0.0-0.4) X10*3/uL Baso # (Auto) (0.0-0.2) X10*3/uL Abs Immat Gran (auto) (0.00-0.03) X10*3/uL Absolute Neuts (auto) (2.0-8.3) X10*3/uL Absolute Nucleated RBC (0.0-0.012) X10*3/uL Nucleated RBC % (auto) (0.0-0.2) /100WBC Sodium (135-145) mmol/L Potassium (3.3-5.1) mmol/l Chloride (96-108) mmol/L Carbon Dioxide (22-29) mmol/L Anion Gap (12-20) BUN (9-16) mg/dL Creatinine (0.5-1.4) mg/dL Estim Creat Clear Calc Estimated GFR POC Glucose (60-115) mg/dL Random Glucose (60-115) mg/dL Lactic Acid 1.3 (0.5-2.0) mmol/L Calcium 7.7 L (8.4-10.2) mg/dL Magnesium (1.6-2.6) mg/dL Total Bilirubin (0.0-1.0) mg/dL Direct Bilirubin (0.0-0.5) mg/dL AST (5-37) U/L ALT (0-40) U/L Alkaline Phosphatase (39-117) U/L Troponin I High Sens 47.1 H D (<3.5-35.0) ng/L Total Protein (6.5-8.0) g/dL Albumin (3.5-5.0) g/dL Urine Color Urine Appearance Urine pH (5.0-8.0) Ur Specific [place] (1.005-1.025) Urine Protein (NEG-TRACE) MG/DL Urine Glucose (UA) (NEG) MG/DL Urine Ketones (NEG) MG/DL Urine Blood (NEG) Urine Nitrite (NEG) Ur Leukocyte Esterase (NEG) Urine RBC (0) /HPF Urine WBC (0-4) /HPF Ur Squamous Epith Cells /LPF Amorphous Sediment /LPF Urine Bacteria /LPF Hyaline Casts /LPF Granular Casts /LPF Urine Opiates Screen (Not Detect) Ur Barbiturates Screen (Not Detect) Ur Phencyclidine Scrn (Not Detect) Ur Amphetamines Screen (Not Detect) U Benzodiazepines Scrn (Not Detect) Urine Cocaine Screen (Not Detect) U Marijuana (THC) Screen (Not Detect) 06/30/20 06/30/20 06/30/20 Range/Units 17:00 17:15 17:15 WBC (4.8-10.8) X10*3/uL RBC (4.60-5.80) X10*6/uL Hgb (14.0-18.0) g/dl Hct (42-52) % MCV (80-98) fL MCH (27.0-33.0) pg MCHC (31.0-36.0) g/dl RDW (11.0-16.0) % Plt Count (160-400) X10*3/uL MPV (9.4-12.4) fL Immature Gran % (Auto) (0.0-0.4) % Neut % (Auto) (45-73) % Lymph % (Auto) (20-40) % [place] % (Auto) (2-11) % Eos % (Auto) (0-4) % Baso % (Auto) (0-2) % Lymph # (Auto) (1.2-4.9) X10*3/uL [place] # (Auto) (0.1-1.2) X10*3/uL Eos # (Auto) (0.0-0.4) X10*3/uL Baso # (Auto) (0.0-0.2) X10*3/uL Abs Immat Gran (auto) (0.00-0.03) X10*3/uL Absolute Neuts (auto) (2.0-8.3) X10*3/uL Absolute Nucleated RBC (0.0-0.012) X10*3/uL Nucleated RBC % (auto) (0.0-0.2) /100WBC Sodium (135-145) mmol/L Potassium (3.3-5.1) mmol/l Chloride (96-108) mmol/L Carbon Dioxide (22-29) mmol/L Anion Gap (12-20) BUN (9-16) mg/dL Creatinine (0.5-1.4) mg/dL Estim Creat Clear Calc Estimated GFR POC Glucose (60-115) mg/dL Random Glucose (60-115) mg/dL Lactic Acid (0.5-2.0) mmol/L Calcium (8.4-10.2) mg/dL Magnesium (1.6-2.6) mg/dL Total Bilirubin (0.0-1.0) mg/dL Direct Bilirubin (0.0-0.5) mg/dL AST (5-37) U/L ALT (0-40) U/L Alkaline Phosphatase (39-117) U/L Troponin I High Sens 44.9 H (<3.5-35.0) ng/L Total Protein (6.5-8.0) g/dL Albumin (3.5-5.0) g/dL Urine Color DARK YELLOW Urine Appearance CLEAR Urine pH 5.0 (5.0-8.0) Ur Specific [place] >= 1.030 H (1.005-1.025) Urine Protein 3+ H (NEG-TRACE) MG/DL Urine Glucose (UA) NEG (NEG) MG/DL Urine Ketones 15 (NEG) MG/DL Urine Blood TRACE (NEG) Urine Nitrite NEG (NEG) Ur Leukocyte Esterase NEG (NEG) Urine RBC 0 (0) /HPF Urine WBC 0-2 (0-4) /HPF Ur Squamous Epith Cells TRACE /LPF Amorphous Sediment 1+ /LPF Urine Bacteria NONE /LPF Hyaline Casts 0-2 /LPF Granular Casts 1-4 /LPF Urine Opiates Screen Not Detected (Not Detect) Ur Barbiturates Screen Not Detected (Not Detect) Ur Phencyclidine Scrn Not Detected (Not Detect) Ur Amphetamines Screen Not Detected (Not Detect) U Benzodiazepines Scrn Not Detected (Not Detect) Urine Cocaine Screen Not Detected (Not Detect) U Marijuana (THC) Screen Not Detected (Not Detect) 06/30/20 Range/Units 23:07 WBC (4.8-10.8) X10*3/uL RBC (4.60-5.80) X10*6/uL Hgb (14.0-18.0) g/dl Hct (42-52) % MCV (80-98) fL MCH (27.0-33.0) pg MCHC (31.0-36.0) g/dl RDW (11.0-16.0) % Plt Count (160-400) X10*3/uL MPV (9.4-12.4) fL Immature Gran % (Auto) (0.0-0.4) % Neut % (Auto) (45-73) % Lymph % (Auto) (20-40) % [place] % (Auto) (2-11) % Eos % (Auto) (0-4) % Baso % (Auto) (0-2) % Lymph # (Auto) (1.2-4.9) X10*3/uL [place] # (Auto) (0.1-1.2) X10*3/uL Eos # (Auto) (0.0-0.4) X10*3/uL Baso # (Auto) (0.0-0.2) X10*3/uL Abs Immat Gran (auto) (0.00-0.03) X10*3/uL Absolute Neuts (auto) (2.0-8.3) X10*3/uL Absolute Nucleated RBC (0.0-0.012) X10*3/uL Nucleated RBC % (auto) (0.0-0.2) /100WBC Sodium (135-145) mmol/L Potassium (3.3-5.1) mmol/l Chloride (96-108) mmol/L Carbon Dioxide (22-29) mmol/L Anion Gap (12-20) BUN (9-16) mg/dL Creatinine (0.5-1.4) mg/dL Estim Creat Clear Calc Estimated GFR POC Glucose (60-115) mg/dL Random Glucose (60-115) mg/dL Lactic Acid (0.5-2.0) mmol/L Calcium (8.4-10.2) mg/dL Magnesium (1.6-2.6) mg/dL Total Bilirubin (0.0-1.0) mg/dL Direct Bilirubin (0.0-0.5) mg/dL AST (5-37) U/L ALT (0-40) U/L Alkaline Phosphatase (39-117) U/L Troponin I High Sens 43.0 H (<3.5-35.0) ng/L Total Protein (6.5-8.0) g/dL Albumin (3.5-5.0) g/dL Urine Color Urine Appearance Urine pH (5.0-8.0) Ur Specific [place] (1.005-1.025) Urine Protein (NEG-TRACE) MG/DL Urine Glucose (UA) (NEG) MG/DL Urine Ketones (NEG) MG/DL Urine Blood (NEG) Urine Nitrite (NEG) Ur Leukocyte Esterase (NEG) Urine RBC (0) /HPF Urine WBC (0-4) /HPF Ur Squamous Epith Cells /LPF Amorphous Sediment /LPF Urine Bacteria /LPF Hyaline Casts /LPF Granular Casts /LPF Urine Opiates Screen (Not Detect) Ur Barbiturates Screen (Not Detect) Ur Phencyclidine Scrn (Not Detect) Ur Amphetamines Screen (Not Detect) U Benzodiazepines Scrn (Not Detect) Urine Cocaine Screen (Not Detect) U Marijuana (THC) Screen (Not Detect) <SHANTELLE Santillan - Last Filed: 06/30/20 16:23> Lab Results 06/30/20 06/30/20 06/30/20 Range/Units 14:59 16:29 16:29 WBC 11.6 H (4.8-10.8) X10*3/uL RBC 5.27 (4.60-5.80) X10*6/uL Hgb 15.4 (14.0-18.0) g/dl Hct 45.1 (42-52) % MCV 85.6 (80-98) fL MCH 29.2 (27.0-33.0) pg MCHC 34.1 (31.0-36.0) g/dl RDW 12.9 (11.0-16.0) % Plt Count 208 D (160-400) X10*3/uL MPV 8.2 L (9.4-12.4) fL Immature Gran % (Auto) 1.8 H (0.0-0.4) % Neut % (Auto) 74.4 H (45-73) % Lymph % (Auto) 12.7 L (20-40) % [place] % (Auto) 9.9 (2-11) % Eos % (Auto) 0.7 (0-4) % Baso % (Auto) 0.5 (0-2) % Lymph # (Auto) 1.5 (1.2-4.9) X10*3/uL [place] # (Auto) 1.2 (0.1-1.2) X10*3/uL Eos # (Auto) 0.1 (0.0-0.4) X10*3/uL Baso # (Auto) 0.1 (0.0-0.2) X10*3/uL Abs Immat Gran (auto) 0.21 H (0.00-0.03) X10*3/uL Absolute Neuts (auto) 8.6 H (2.0-8.3) X10*3/uL Absolute Nucleated RBC 0.000 (0.0-0.012) X10*3/uL Nucleated RBC % (auto) 0.0 (0.0-0.2) /100WBC Sodium 133 L (135-145) mmol/L Potassium 4.1 (3.3-5.1) mmol/l Chloride 99 (96-108) mmol/L Carbon Dioxide 21 L (22-29) mmol/L Anion Gap 17 (12-20) BUN 45 H (9-16) mg/dL Creatinine 1.21 (0.5-1.4) mg/dL Estim Creat Clear Calc 56.7 Estimated GFR 60 POC Glucose 124 H (60-115) mg/dL Random Glucose 131 H (60-115) mg/dL Lactic Acid (0.5-2.0) mmol/L Calcium 7.6 L (8.4-10.2) mg/dL Magnesium 2.4 (1.6-2.6) mg/dL Total Bilirubin 0.3 (0.0-1.0) mg/dL Direct Bilirubin 0.3 (0.0-0.5) mg/dL AST 21 D (5-37) U/L ALT 21 (0-40) U/L Alkaline Phosphatase 111 D (39-117) U/L Troponin I High Sens (<3.5-35.0) ng/L Total Protein 6.0 L (6.5-8.0) g/dL Albumin 3.0 L (3.5-5.0) g/dL Urine Color Urine Appearance Urine pH (5.0-8.0) Ur Specific [place] (1.005-1.025) Urine Protein (NEG-TRACE) MG/DL Urine Glucose (UA) (NEG) MG/DL Urine Ketones (NEG) MG/DL Urine Blood (NEG) Urine Nitrite (NEG) Ur Leukocyte Esterase (NEG) Urine RBC (0) /HPF Urine WBC (0-4) /HPF Ur Squamous Epith Cells /LPF Amorphous Sediment /LPF Urine Bacteria /LPF Hyaline Casts /LPF Granular Casts /LPF Urine Opiates Screen (Not Detect) Ur Barbiturates Screen (Not Detect) Ur Phencyclidine Scrn (Not Detect) Ur Amphetamines Screen (Not Detect) U Benzodiazepines Scrn (Not Detect) Urine Cocaine Screen (Not Detect) U Marijuana (THC) Screen (Not Detect) 06/30/20 06/30/20 06/30/20 Range/Units 16:29 16:29 16:29 WBC (4.8-10.8) X10*3/uL RBC (4.60-5.80) X10*6/uL Hgb (14.0-18.0) g/dl Hct (42-52) % MCV (80-98) fL MCH (27.0-33.0) pg MCHC (31.0-36.0) g/dl RDW (11.0-16.0) % Plt Count (160-400) X10*3/uL MPV (9.4-12.4) fL Immature Gran % (Auto) (0.0-0.4) % Neut % (Auto) (45-73) % Lymph % (Auto) (20-40) % [place] % (Auto) (2-11) % Eos % (Auto) (0-4) % Baso % (Auto) (0-2) % Lymph # (Auto) (1.2-4.9) X10*3/uL [place] # (Auto) (0.1-1.2) X10*3/uL Eos # (Auto) (0.0-0.4) X10*3/uL Baso # (Auto) (0.0-0.2) X10*3/uL Abs Immat Gran (auto) (0.00-0.03) X10*3/uL Absolute Neuts (auto) (2.0-8.3) X10*3/uL Absolute Nucleated RBC (0.0-0.012) X10*3/uL Nucleated RBC % (auto) (0.0-0.2) /100WBC Sodium (135-145) mmol/L Potassium (3.3-5.1) mmol/l Chloride (96-108) mmol/L Carbon Dioxide (22-29) mmol/L Anion Gap (12-20) BUN (9-16) mg/dL Creatinine (0.5-1.4) mg/dL Estim Creat Clear Calc Estimated GFR POC Glucose (60-115) mg/dL Random Glucose (60-115) mg/dL Lactic Acid 1.3 (0.5-2.0) mmol/L Calcium 7.7 L (8.4-10.2) mg/dL Magnesium (1.6-2.6) mg/dL Total Bilirubin (0.0-1.0) mg/dL Direct Bilirubin (0.0-0.5) mg/dL AST (5-37) U/L ALT (0-40) U/L Alkaline Phosphatase (39-117) U/L Troponin I High Sens 47.1 H D (<3.5-35.0) ng/L Total Protein (6.5-8.0) g/dL Albumin (3.5-5.0) g/dL Urine Color Urine Appearance Urine pH (5.0-8.0) Ur Specific [place] (1.005-1.025) Urine Protein (NEG-TRACE) MG/DL Urine Glucose (UA) (NEG) MG/DL Urine Ketones (NEG) MG/DL Urine Blood (NEG) Urine Nitrite (NEG) Ur Leukocyte Esterase (NEG) Urine RBC (0) /HPF Urine WBC (0-4) /HPF Ur Squamous Epith Cells /LPF Amorphous Sediment /LPF Urine Bacteria /LPF Hyaline Casts /LPF Granular Casts /LPF Urine Opiates Screen (Not Detect) Ur Barbiturates Screen (Not Detect) Ur Phencyclidine Scrn (Not Detect) Ur Amphetamines Screen (Not Detect) U Benzodiazepines Scrn (Not Detect) Urine Cocaine Screen (Not Detect) U Marijuana (THC) Screen (Not Detect) 06/30/20 06/30/20 06/30/20 Range/Units 17:00 17:15 17:15 WBC (4.8-10.8) X10*3/uL RBC (4.60-5.80) X10*6/uL Hgb (14.0-18.0) g/dl Hct (42-52) % MCV (80-98) fL MCH (27.0-33.0) pg MCHC (31.0-36.0) g/dl RDW (11.0-16.0) % Plt Count (160-400) X10*3/uL MPV (9.4-12.4) fL Immature Gran % (Auto) (0.0-0.4) % Neut % (Auto) (45-73) % Lymph % (Auto) (20-40) % [place] % (Auto) (2-11) % Eos % (Auto) (0-4) % Baso % (Auto) (0-2) % Lymph # (Auto) (1.2-4.9) X10*3/uL [place] # (Auto) (0.1-1.2) X10*3/uL Eos # (Auto) (0.0-0.4) X10*3/uL Baso # (Auto) (0.0-0.2) X10*3/uL Abs Immat Gran (auto) (0.00-0.03) X10*3/uL Absolute Neuts (auto) (2.0-8.3) X10*3/uL Absolute Nucleated RBC (0.0-0.012) X10*3/uL Nucleated RBC % (auto) (0.0-0.2) /100WBC Sodium (135-145) mmol/L Potassium (3.3-5.1) mmol/l Chloride (96-108) mmol/L Carbon Dioxide (22-29) mmol/L Anion Gap (12-20) BUN (9-16) mg/dL Creatinine (0.5-1.4) mg/dL Estim Creat Clear Calc Estimated GFR POC Glucose (60-115) mg/dL Random Glucose (60-115) mg/dL Lactic Acid (0.5-2.0) mmol/L Calcium (8.4-10.2) mg/dL Magnesium (1.6-2.6) mg/dL Total Bilirubin (0.0-1.0) mg/dL Direct Bilirubin (0.0-0.5) mg/dL AST (5-37) U/L ALT (0-40) U/L Alkaline Phosphatase (39-117) U/L Troponin I High Sens 44.9 H (<3.5-35.0) ng/L Total Protein (6.5-8.0) g/dL Albumin (3.5-5.0) g/dL Urine Color DARK YELLOW Urine Appearance CLEAR Urine pH 5.0 (5.0-8.0) Ur Specific [place] >= 1.030 H (1.005-1.025) Urine Protein 3+ H (NEG-TRACE) MG/DL Urine Glucose (UA) NEG (NEG) MG/DL Urine Ketones 15 (NEG) MG/DL Urine Blood TRACE (NEG) Urine Nitrite NEG (NEG) Ur Leukocyte Esterase NEG (NEG) Urine RBC 0 (0) /HPF Urine WBC 0-2 (0-4) /HPF Ur Squamous Epith Cells TRACE /LPF Amorphous Sediment 1+ /LPF Urine Bacteria NONE /LPF Hyaline Casts 0-2 /LPF Granular Casts 1-4 /LPF Urine Opiates Screen Not Detected (Not Detect) Ur Barbiturates Screen Not Detected (Not Detect) Ur Phencyclidine Scrn Not Detected (Not Detect) Ur Amphetamines Screen Not Detected (Not Detect) U Benzodiazepines Scrn Not Detected (Not Detect) Urine Cocaine Screen Not Detected (Not Detect) U Marijuana (THC) Screen Not Detected (Not Detect) 06/30/20 Range/Units 23:07 WBC (4.8-10.8) X10*3/uL RBC (4.60-5.80) X10*6/uL Hgb (14.0-18.0) g/dl Hct (42-52) % MCV (80-98) fL MCH (27.0-33.0) pg MCHC (31.0-36.0) g/dl RDW (11.0-16.0) % Plt Count (160-400) X10*3/uL MPV (9.4-12.4) fL Immature Gran % (Auto) (0.0-0.4) % Neut % (Auto) (45-73) % Lymph % (Auto) (20-40) % [place] % (Auto) (2-11) % Eos % (Auto) (0-4) % Baso % (Auto) (0-2) % Lymph # (Auto) (1.2-4.9) X10*3/uL [place] # (Auto) (0.1-1.2) X10*3/uL Eos # (Auto) (0.0-0.4) X10*3/uL Baso # (Auto) (0.0-0.2) X10*3/uL Abs Immat Gran (auto) (0.00-0.03) X10*3/uL Absolute Neuts (auto) (2.0-8.3) X10*3/uL Absolute Nucleated RBC (0.0-0.012) X10*3/uL Nucleated RBC % (auto) (0.0-0.2) /100WBC Sodium (135-145) mmol/L Potassium (3.3-5.1) mmol/l Chloride (96-108) mmol/L Carbon Dioxide (22-29) mmol/L Anion Gap (12-20) BUN (9-16) mg/dL Creatinine (0.5-1.4) mg/dL Estim Creat Clear Calc Estimated GFR POC Glucose (60-115) mg/dL Random Glucose (60-115) mg/dL Lactic Acid (0.5-2.0) mmol/L Calcium (8.4-10.2) mg/dL Magnesium (1.6-2.6) mg/dL Total Bilirubin (0.0-1.0) mg/dL Direct Bilirubin (0.0-0.5) mg/dL AST (5-37) U/L ALT (0-40) U/L Alkaline Phosphatase (39-117) U/L Troponin I High Sens 43.0 H (<3.5-35.0) ng/L Total Protein (6.5-8.0) g/dL Albumin (3.5-5.0) g/dL Urine Color Urine Appearance Urine pH (5.0-8.0) Ur Specific [place] (1.005-1.025) Urine Protein (NEG-TRACE) MG/DL Urine Glucose (UA) (NEG) MG/DL Urine Ketones (NEG) MG/DL Urine Blood (NEG) Urine Nitrite (NEG) Ur Leukocyte Esterase (NEG) Urine RBC (0) /HPF Urine WBC (0-4) /HPF Ur Squamous Epith Cells /LPF Amorphous Sediment /LPF Urine Bacteria /LPF Hyaline Casts /LPF Granular Casts /LPF Urine Opiates Screen (Not Detect) Ur Barbiturates Screen (Not Detect) Ur Phencyclidine Scrn (Not Detect) Ur Amphetamines Screen (Not Detect) U Benzodiazepines Scrn (Not Detect) Urine Cocaine Screen (Not Detect) U Marijuana (THC) Screen (Not Detect) <Hilary Trevino NP - Last Filed: 07/01/20 00:36> ECG Data Attestation: I personally reviewed and interpreted this ECG as follows: <SHANTELLE Santillan - Last Filed: 06/30/20 16:23> Interpretation: Normal sinus rhythm, HR 60 bpm, RBBB. T-wave inversions in V2, V3, V4 which are unchanged in comparison to 05/2020. <SHANTELLE Santillan - Last Filed: 06/30/20 16:23> Discharge Plan Discharge Prescriptions: No Action venlafaxine 75 mg capsule,extended release 24hr 1 cap PO DAILY RF: 0 glipizide 10 mg tablet 1 tab PO BID RF: 0 venlafaxine 150 mg capsule,extended release 24hr 1 cap PO DAILY RF: 0 hydralazine 25 mg tablet 1 tab PO BID RF: 0 clopidogrel 75 mg tablet 1 tab PO DAILY RF: 0 spironolactone 25 mg tablet 1 tab PO DAILY RF: 0 lorazepam 0.5 mg tablet 1 tab PO BID PRN (Reason: anxiety) RF: 0 lovastatin 20 mg tablet 1 tab PO BEDTIME RF: 0 atenolol 50 mg tablet 2 tab PO DAILY RF: 0 docusate sodium 100 mg Capsule 100 mg PO DAILY PRN (Reason: Constipation) Qty: 30 RF: 0 prednisone 20 mg Tablet 20 mg PO DAILY Qty: 5 RF: 0 insulin lispro [Humalog U-100 Insulin] 100 unit/mL Solution See Protocol unit subcut QIDACHS Qty: 10 RF: 0 ipratropium-albuterol 0.5 mg-3 mg(2.5 mg base)/3 mL Solution For Nebulization 3 ml inhalation RQ4H PRN (Reason: Shortness Of Breath/Wheezing) Qty: 15 RF: 0 Breo Ellipta 100-25 mcg/dose blister with device 1 inh inhalation Q24H Qty: 28 RF: 0 albuterol sulfate 5 mg/mL solution for nebulization 2.5 mg inhalation Q6H PRN (Reason: bronchospasm) Qty: 20 RF: 0 <SHANTELLE Santillan - Last Filed: 06/30/20 16:23>
[2020-06-30 16:00] VITALS: BP 132/68; PULSE 65; RESP 18; TEMP 36.1; O2SAT 96
[2020-06-30 16:37] LABS: Basophils Absolute Auto 0.1 X10*3/uL (0.0-0.2); Basophils Percent Auto 0.5 % (0-2); Eosinophils Absolute Auto 0.1 X10*3/uL (0.0-0.4); Eosinophils Percent Auto 0.7 % (0-4); Hematocrit 45.1 % (42-52); Hemoglobin 15.4 g/dl (14.0-18.0); Imm Gran Abs Auto 0.21 X10*3/uL (0.00-0.03); Imm Gran Pct Auto 1.8 % (0.0-0.4); Lymphocytes Absolute Auto 1.5 X10*3/uL (1.2-4.9); Lymphocytes Percent Auto 12.7 % (20-40); MANUAL DIFF FLAG NO; Mean Corpuscular HGB Conc 34.1 g/dl (31.0-36.0); Mean Corpuscular Hemoglobin 29.2 pg (27.0-33.0); Mean Corpuscular Volume 85.6 fL (80-98); Mean Platelet Volume 8.2 fL (9.4-12.4); Monocytes Absolute Auto 1.2 X10*3/uL (0.1-1.2); Monocytes Percent Auto 9.9 % (2-11); Neutrophils Absolute Auto 8.6 X10*3/uL (2.0-8.3); Neutrophils Percent Auto 74.4 % (45-73); Platelet Count 208 X10*3/uL (160-400); Red Blood Count 5.27 X10*6/uL (4.60-5.80); Red Cell Distribution Width 12.9 % (11.0-16.0); White Blood Count 11.6 X10*3/uL (4.8-10.8)
[2020-06-30 16:53] LABS: Calcium 7.7 mg/dL (8.4-10.2)
[2020-06-30 16:54] LABS: Lactic Acid 1.3 mmol/L (0.5-2.0)
[2020-06-30 17:00] LABS: Alanine Aminotransferase 21 U/L (0-40); Alkaline Phosphatase 111 U/L (39-117); Anion Gap 17 (12-20); Aspartate Amino Transferase 21 U/L (5-37); Bilirubin Direct 0.3 mg/dL (0.0-0.5); Bilirubin Total 0.3 mg/dL (0.0-1.0); Blood Urea Nitrogen 45 mg/dL (9-16); Calcium 7.6 mg/dL (8.4-10.2); Carbon Dioxide 21 mmol/L (22-29); Chloride 99 mmol/L (96-108); Creatinine Clr Calc Pharmacy 56.7; Estimated Glomerular Filt Rate 60; Glucose Random 131 mg/dL (60-115); Magnesium 2.4 mg/dL (1.6-2.6); Potassium 4.1 mmol/l (3.3-5.1); Sodium 133 mmol/L (135-145)
[2020-06-30 17:14] LABS: Troponin-I High Sensitivity 47.1 ng/L (<3.5-35.0)
[2020-06-30 17:40] LABS: Glucose Urine UA NEG (NEG); Leukocyte Esterase Urine NEG (NEG); Nitrite Urine NEG (NEG); Specific Gravity - Urine >= 1.030 (1.005-1.025); Urine Blood TRACE (NEG); Urine Ketones 15 MG/DL (NEG); Urine Protein 3+ MG/DL (NEG-TRACE)
[2020-06-30 17:50] LABS: Amphetamine Screen Urine Not Detected (Not Detect); Barbiturates, Urine Not Detected (Not Detect); Benzodiazepines Screen Urine Not Detected (Not Detect); Cannabinoid Screen Urine Not Detected (Not Detect); Cocaine Screen Urine Not Detected (Not Detect); Opiate Screen Urine Not Detected (Not Detect); Phencyclidine Screen Urine Not Detected (Not Detect)
[2020-06-30 17:51] LABS: Appearance Urine CLEAR; Color Urine DARK YELLOW
[2020-06-30 18:28] LABS: Amorphous Sediment Urine 1+ /LPF; Hyaline Casts Urine 0-2 /LPF; RBC Urine 0 /HPF (0); Squamous Epithelial Cell Urine TRACE /LPF; WBC Urine 0-2 /HPF (0-4)
[2020-06-30 19:56] VITALS: BP 140/71; PULSE 62; RESP 18; O2SAT 95
[2020-06-30 20:01] LABS: Troponin-I High Sensitivity 44.9 ng/L (<3.5-35.0)
--- NOTE | 2020-06-30 20:13 | XR_ITS ---
EXAMINATION: XR CHEST CLINICAL INFORMATION: Baseline COMPARISON: 06/06/2020 TECHNIQUE: Frontal view of the chest was obtained. FINDINGS: The heart and pulmonary vessels appear normal. No infiltrates, effusions or lung masses are seen. XR/XR chest 1V IMPRESSION: No acute intrathoracic disease.
[2020-06-30 21:20] VITALS: BP 148/86; PULSE 64; RESP 20; O2SAT 93
--- NOTE | 2020-06-30 21:21 | PC.NURSE ---
PT MOVED FROM 13H TO BED 11. PT HAS BEEN ON THE MONITOR SB. PT DENIES PAIN. PT REPOSITIONED WITH PILLOWS AND HEALS ELEVATED ON A PILLOW. SKIN INTACT. PT STATES HE IS HUNGRY, ELEVATED TROP.
--- NOTE | 2020-06-30 21:22 | PC.NURSE ---
PT HAS A 20G LEFT AC PLACED BY PREV RN. SITE INTACT AND BENIGN
--- NOTE | 2020-06-30 22:11 | ECG_ITS ---
Test Reason : REPEAT FOR WEAKNESS Blood Pressure : / mmHG Vent. Rate : 062 BPM Atrial Rate : 062 BPM P-R Int : 144 ms QRS Dur : 142 ms QT Int : 468 ms P-R-T Axes : 064 091 019 degrees QTc Int : 475 ms Normal sinus rhythm Right bundle branch block T-wave inversion in Anterior leads Abnormal ECG When compared with ECG of 30-JUN-2020 16:09, No significant change was found Referred By: Hilary Trevino Electronically Signed By:DIANNE RDZ MD
[2020-06-30 23:08] VITALS: BP 133/72; PULSE 64; RESP 18; O2SAT 97
[2020-07-01] VITALS (7 sets, daily range): BP systolic 133–144; BP diastolic 70–72; PULSE 64–76; RESP 16–22; TEMP 36.5; O2SAT 95–97
--- NOTE | 2020-07-01 07:35 | PC.NURSE ---
PT sleeping in room at this time, respirations even/unlabored bilaterally. no sign of distress. will continue to monitor. md aware.
--- NOTE | 2020-07-01 10:02 | MHC.CM.ED ---
Received case management consult overnight. Patient came to ER due to weakness. Work up essentially negative. Physical therapy eval completed. Short term rehab is recommended. Spoke with patient's , Savana via telephoe at [phone]. Patient was at [facility] from 06/07-06/28. Physical therapy would come to see patient and he would refuse. Savana stated they wouldn't make him get up. Savana is requesting referrals to: 1) [facility] 2)[facility] and 3)[facility]. Referrals made via allscripts. Continue to monitor for d/c needs.
[2020-07-01] MEDS: ondansetron HCL 4 MG/2 ML VIAL IVPUSH (10:52)
--- NOTE | 2020-07-01 10:54 | PC.NURSE ---
PT FEELING NAUSEAUS, ONE TIME DOES OF ZOFRAN PLACED BY SHANTELLE AYALA. PT MEDICATED PER EMAR. WILL CONTINUE TO MONITOR.
[2020-07-01 15:06] LABS: SARS COV2 PCR INHOUSE POSITIVE (Negative)
--- NOTE | 2020-07-01 15:49 | MHC.CM.ED ---
[facility] is able to offer a bed with a negative Covid. Rapid Covid ordered. Patient found to be Covid positive. Referral broadcasted to all facilities within 20 miles that are accepting Covid patients. [facility] is the only facility that has a male bed. They are reviewing patient now. Continue to monitor for d/c needs.
--- NOTE | 2020-07-01 16:18 | MHC.CM.ED ---
[facility] is able to offer a bed. Patient can leave here at 530pm. [facility] booked. Med [facility] with chart. Patient, Savana, Luis Felipe PEPPER and Jose C MARTINEZ aware. Continue to monitor for d/c needs.
== END 2020-07-01 18:43 | disposition skilled nursing facility (03) ==
PROVIDERS: Emergency Medicine; Nurse Practitioner Family; Physician Assistant; Emergency Provider Emergency Medicine
DX: R53.1 Weakness (principal); J44.9 Chronic obstructive pulmonary disease, unspecified; I10 Essential (primary) hypertension; R41.82 Altered mental status, unspecified; Z20.828 Contact with and (suspected) exposure to other viral communicable diseases; Z86.73 Personal history of transient ischemic attack (TIA), and cerebral infarction without residual deficits; Z79.899 Other long term (current) drug therapy; Z87.891 Personal history of nicotine dependence
CPT/HCPCS: 36415; 70450; 71045; 80048; 80076; 80307; 81001; 82310; 82947; 83605; 83735; 84484; 85025; 93005; 96374; 97162; 99285; J2405; U0003

== ENCOUNTER 2020-07-04 15:27 | Emergency (ER) | payer MEDICARE, OTHER, SELFPAY ==
[2020-07-04 15:50] VITALS: BP 148/82; PULSE 60; RESP 18; TEMP 36.8; O2SAT 95; BMI 23.6
--- NOTE | 2020-07-04 15:54 | ED.GENADULT ---
HPI - General Adult General Chief complaint: General Medical Stated complaint: ABNORMAL LABS FROM SNF,+COVID Time Seen by Provider: 07/04/20 15:30 Source: EMS Mode of arrival: EMS Limitations: other (Still CVA some expressive aphasia) History of Present Illness HPI narrative: Mr. Salvatore Bueno a 64-year-old male with past medical history that is significant for coronary artery disease, COPD, CVA with left-sided weakness, depression, hypertension, hyperlipidemia, diabetes mellitus, pneumonia past surgical history: PCI with stents, tonsillectomy who was diagnosed with COVID-19 in mid-May subsequently sent to rehab AT [facility] from where the called EMS for the patient with abnormal lab value. For the nurse today patient had a repeat blood draw that showed his white count went from 12 to 23 in addition for the RN patient was complaining of some right-sided abdominal pain and having some irregular bowel movements. Patient however denies any pain or discomfort upon arrival per RN he will complain of pain but when you ask him about pain he will usually denies this. Onset (ago): day(s) Severity: mild Associated symptoms: denies other symptoms Treatments prior to arrival: none Related Data Home Medications Medication Instructions Recorded Confirmed atenolol 2 tab PO DAILY 06/06/20 06/06/20 clopidogrel 1 tab PO DAILY 06/06/20 06/06/20 glipizide 1 tab PO BID 06/06/20 06/06/20 hydralazine 1 tab PO BID 06/06/20 06/06/20 lorazepam 1 tab PO BID PRN 06/06/20 06/06/20 lovastatin 1 tab PO BEDTIME 06/06/20 06/06/20 spironolactone 1 tab PO DAILY 06/06/20 06/06/20 venlafaxine 1 cap PO DAILY 06/06/20 06/06/20 venlafaxine 1 cap PO DAILY 06/06/20 06/06/20 Previous Rx's Medication Instructions Recorded albuterol sulfate 2.5 mg INHALATION Q6H PRN #20 ml 06/07/20 docusate sodium 100 mg PO DAILY PRN #30 cap 06/07/20 fluticasone furoate-vilanterol 1 inh INHALATION Q24H #28 ea 06/07/20 [Breo Ellipta] insulin lispro [Humalog U-100 See Protocol SUBCUT QIDACHS #10 ml 06/07/20 Insulin] ipratropium-albuterol 3 ml INHALATION RQ4H PRN #15 ml 06/07/20 prednisone 20 mg PO DAILY #5 tab 06/07/20 Allergies Allergy/AdvReac Type Severity Reaction Status Date / Time No Known Allergies Allergy Unknown NKA Unverified 05/12/20 14:44 Review of Systems Review of Systems: Constitutional: No Weight loss, No Fever, No Chills, No Night Sweats, No Fatigue, No Malaise ENT/Mouth: No Hearing loss, No Ear Pain, No Nasal Congestion, No Sinus Pain, No Hoarseness, No sore throat, No Rhinorrhea, No Swallowing Difficulty Eyes: No Eye Pain, No Swelling, No Redness, No Foreign Body, No Discharge, No Vision Changes Cardiovascular: No Chest Pain, No SOB, No Dyspnea on Exertion, No Orthopnea, No Edema, No Palpitations Respiratory: No Cough, No Sputum, No Wheezing, No Smoke Exposure, No Dyspnea Gastrointestinal: No Nausea, No Vomiting, No Diarrhea, No Constipation, No abdominal Pain, No Hematochezia, No Melena Genitourinary: no irregular bleeding, No Dysuria, No Urinary Frequency, No Hematuria, No Urinary Incontinence, No Urgency, No Flank Pain, No Urinary Flow Changes, No Hesitancy Musculoskeletal: No joint pain, No Myalgias, No Joint Swelling Skin: No Skin Lesions, No rash Neuro: No Weakness, No Numbness, No Paresthesias, No Loss of Consciousness, No Dizziness, No Headache Psych: No Anxiety/Panic, No Depression, No SI/HI/AH/VH, No Social Issues, Heme/Lymph: No Bruising, No Bleeding,No Lymphadenopathy Endocrine: No Polyuria, No Polydipsia, No Temperature Intolerance Yes all other systems are reviewed and are negative and Unobtainable due to mental status [facility] Past Medical History Attestation statement: The following information was validated with the patient. Medical History COPD (chronic obstructive pulmonary disease) CVA (cerebral vascular accident) Diabetes mellitus type 1 Dizziness Hypertension Surgical History History of percutaneous coronary intervention Social History Social History Household Members: Spouse Housing: House Alcohol intake: never Smoking Status: Never smoker Second Hand Smoke Exposure: No Use of substances other than those prescribed or required for medical reasons: No Advance Directives: Yes Advance Directives on File: Yes Advance Directives Date on File: 09/30/06 service: No Current occupational status: retired Physical Exam Vital Signs: Vital Signs: Last Vital Signs Temp 98.6 F 07/04/20 21:23 Pulse 74 07/04/20 21:23 Resp 18 07/04/20 21:23 BP 146/70 H 07/04/20 21:23 Pulse Ox 97 07/04/20 21:23 Body Mass Index 23.6 Reviewed Const: General: cooperative and healthy appearing; No acute distress or intoxicated appearing Nutritional Appearance: average body habitus Orientation/consciousness: patient oriented x3 HENMT: Head: Yes normal to inspection Ears: hearing grossly normal bilaterally Eyes: General: appearance normal, both eyes and all related structures Visual Navarro: normal visual navarro by confrontation Neck: Neck: Yes normal visual inspection and No tender Thyroid: Thyroid normal Chest: Chest palpation & inspection: normal inspection of the chest Resp: Effort & Inspection: normal respiratory effort Cardio: Jugular venous distension: no JVD GI: Inspection: Yes normal to inspection Percussion: Yes normal to percussion Auscultation: normal bowel sounds : General: Yes no CVA tenderness Back/Spine/Pelvis: Back: no CVA tenderness Skin: General skin exam: no rashes or lesions noted Neuro: General: patient oriented x3 Extrem: General: Yes normal to inspection Course Course Course Narrative: In review 64-year-old male with above history most history gathered from patient's records from the long-term and his prior visits here his history is significant limited secondary to his CVA history will need labs and abdominal imaging. Reevaluation(s) Reevaluation #1: Initial set of lab work shows leukocytosis 17 in the setting of known COVID-19. Patient has been resting comfortably without any evidence of shortness of breath or chest pain. Hemodynamically stable. No fever. On chemistries he was noted to have some derangement of slightly elevated potassium I suspect hemolyzed back with slight hyponatremia of 128. Patient was given 1 L of fluids and repeated potassium which was 5.1 and sodium 132. Otherwise patient has not had any complaints of nausea vomiting or abdominal pain. CT of the abdomen revealed no acute findings. RN that took care room on the prior visit reports that patient has history of complaining of pain some component of chronicity to this. There is no acute abdomen on exam. Again workup reassuring. Patient will be discharged back to nursing facility. Medical Decision Making Lab Data Result diagrams: 07/04/20 16:26 07/04/20 20:27 Labs: Lab Results 07/04/20 07/04/20 07/04/20 Range/Units 16:25 16:26 16:26 WBC 17.9 H (4.8-10.8) X10*3/uL RBC 5.11 (4.60-5.80) X10*6/uL Hgb 14.9 (14.0-18.0) g/dl Hct 43.8 (42-52) % MCV 85.7 (80-98) fL MCH 29.2 (27.0-33.0) pg MCHC 34.0 (31.0-36.0) g/dl RDW 13.2 (11.0-16.0) % Plt Count 185 (160-400) X10*3/uL MPV 9.0 L (9.4-12.4) fL Immature Gran % (Auto) 0.8 H (0.0-0.4) % Neut % (Auto) 90.5 H (45-73) % Lymph % (Auto) 4.8 L (20-40) % [place] % (Auto) 3.7 (2-11) % Eos % (Auto) 0.1 (0-4) % Baso % (Auto) 0.1 (0-2) % Lymph # (Auto) 0.9 L (1.2-4.9) X10*3/uL [place] # (Auto) 0.7 (0.1-1.2) X10*3/uL Eos # (Auto) 0.0 (0.0-0.4) X10*3/uL Baso # (Auto) 0.0 (0.0-0.2) X10*3/uL Abs Immat Gran (auto) 0.15 H (0.00-0.03) X10*3/uL Absolute Neuts (auto) 16.2 H (2.0-8.3) X10*3/uL Absolute Nucleated RBC 0.000 (0.0-0.012) X10*3/uL Nucleated RBC % (auto) 0.0 (0.0-0.2) /100WBC Smear Tech's Comments VERIFIED APTT (24.1-38.0) SEC Sodium 128 L (135-145) mmol/L Potassium 5.7 H D (3.3-5.1) mmol/l Chloride 95 L (96-108) mmol/L Carbon Dioxide 21 L (22-29) mmol/L Anion Gap 18 (12-20) BUN 47 H (9-16) mg/dL Creatinine 1.40 (0.5-1.4) mg/dL Estim Creat Clear Calc 48.5 Estimated GFR 51 Random Glucose 297 H D (60-115) mg/dL Lactic Acid 1.9 (0.5-2.0) mmol/L Calcium 8.0 L (8.4-10.2) mg/dL Total Bilirubin 0.6 (0.0-1.0) mg/dL AST 23 (5-37) U/L ALT 20 (0-40) U/L Alkaline Phosphatase 98 (39-117) U/L Total Protein 6.2 L (6.5-8.0) g/dL Albumin 3.1 L (3.5-5.0) g/dL 07/04/20 07/04/20 Range/Units 16:26 20:27 WBC (4.8-10.8) X10*3/uL RBC (4.60-5.80) X10*6/uL Hgb (14.0-18.0) g/dl Hct (42-52) % MCV (80-98) fL MCH (27.0-33.0) pg MCHC (31.0-36.0) g/dl RDW (11.0-16.0) % Plt Count (160-400) X10*3/uL MPV (9.4-12.4) fL Immature Gran % (Auto) (0.0-0.4) % Neut % (Auto) (45-73) % Lymph % (Auto) (20-40) % [place] % (Auto) (2-11) % Eos % (Auto) (0-4) % Baso % (Auto) (0-2) % Lymph # (Auto) (1.2-4.9) X10*3/uL [place] # (Auto) (0.1-1.2) X10*3/uL Eos # (Auto) (0.0-0.4) X10*3/uL Baso # (Auto) (0.0-0.2) X10*3/uL Abs Immat Gran (auto) (0.00-0.03) X10*3/uL Absolute Neuts (auto) (2.0-8.3) X10*3/uL Absolute Nucleated RBC (0.0-0.012) X10*3/uL Nucleated RBC % (auto) (0.0-0.2) /100WBC Smear Tech's Comments APTT 29.8 (24.1-38.0) SEC Sodium 132 L (135-145) mmol/L Potassium 5.1 (3.3-5.1) mmol/l Chloride 98 (96-108) mmol/L Carbon Dioxide 22 (22-29) mmol/L Anion Gap 17 (12-20) BUN 41 H (9-16) mg/dL Creatinine 1.21 (0.5-1.4) mg/dL Estim Creat Clear Calc 56.1 Estimated GFR 60 Random Glucose 280 H (60-115) mg/dL Lactic Acid (0.5-2.0) mmol/L Calcium 7.6 L (8.4-10.2) mg/dL Total Bilirubin (0.0-1.0) mg/dL AST (5-37) U/L ALT (0-40) U/L Alkaline Phosphatase (39-117) U/L Total Protein (6.5-8.0) g/dL Albumin (3.5-5.0) g/dL Discharge Plan Discharge Clinical Impression: Abdominal pain, COVID-19 Patient Disposition: er [facility] Instructions: COVID-19 (Coronavirus Disease 2019) (ED) Additional Instructions: [address] [address] [address] Scan Report Signed Patient: Salvatore Bueno RMR#: [id number] : 4Acct:[id number] Age/Sex: 64 / MADM Date: 07/04/20 Loc: HO.ED Attending Dr: Ordering Physician: Bautista Kaur NP Date of Service: 07/04/20 Procedure(s): CT abdomen pelvis wo con Accession Number(s): [id number] cc: Bautista Kaur NP~ EXAMINATION: CT ABDOMEN AND PELVIS WITHOUT CONTRAST CLINICAL INFORMATION: Right-sided abdominal pain. Leukocytosis. COMPARISON: CT abdomen pelvis 03/14/2016 TECHNIQUE: Multidetector volumetric imaging was performed from the superior aspect of the liver through the pubic symphysis. Sagittal and coronal reformatted images were obtained on the technologist's workstation. This CT examination was performed using dose optimization techniques as appropriate, variously including the following: *Automated exposure control *Adjustment of mA and/or kV according to patient size (this includes techniques or standardized protocols for targeted exams where dose is matched to indication/reason for exam; i.e. extremities or head) *Use of iterative reconstruction technique DLP: 694 mGy-cm FINDINGS: LUNG BASES: There are fine subpleural reticular opacities at the lung bases consistent with interstitial lung disease. This is new since prior CAT scan 03/14/2016. No acute airspace opacity No pleural effusion. Moderate volume of coronary artery calcifications. Heart size is normal. There is a small hiatal hernia. LIVER, GALLBLADDER, AND BILIARY TREE: There are a few scattered calcified granuloma in the liver. No focal liver lesion or intrahepatic bile duct dilatation. The gallbladder is unremarkable with no evidence of radiopaque gallstones, gallbladder wall thickening, or obvious pericholecystic inflammatory changes. PANCREAS: Unremarkable. SPLEEN: Unremarkable. ADRENAL GLANDS: Unremarkable. KIDNEYS AND URETERS: The kidneys are normal in size, shape, and attenuation. No hydronephrosis, hydroureter, or calculi seen. No perinephric stranding. BLADDER: Unremarkable. GASTROINTESTINAL TRACT: There is a large volume of stool in the rectum and sigmoid. The colon is distended to a diameter of 6.5 cm at the level the hips. There is no bowel wall thickening. No surrounding edema. No evidence of stercoral colitis. There are a few diverticula of the sigmoid colon but no diverticulitis. The appendix is normal. The small bowel loops are unremarkable. Stomach is normal. There is a small hiatal hernia. ABDOMINAL WALL: No significant hernia is appreciated. LYMPH NODES: Normal. VASCULAR: There are vascular calcifications throughout the abdomen and the pelvis. There is no aneurysm of the aorta. PELVIC VISCERA: Prostate measures 4 cm. There are coarse calcifications within the prostate. OSSEOUS STRUCTURES: Multilevel degenerative spondylosis of the spine. CT/CT abdomen pelvis wo con IMPRESSION: 1. There is no acute abnormality the abdomen or the pelvis. 2. Interstitial lung disease. Dictated By:REGAN HSIEH MD Signed By:<Electronically signed by REGAN HSIEH MD in OV>07/04/201743 DD/ 155 TD/TT: Corn Cutter Operator: JAY BuenoSalvatore Abdoulaye Jasmine M [address] [place] [address] XRay Report Signed Patient: Salvatore BUENO RMR#: [id number] : 1955cct:[id number] Age/Sex: 64 / MADM Date: 06/30/20 Loc: HO.ED Attending Dr: Ordering Physician: LUZMA TREVINO NP Date of Service: 06/30/20 Procedure(s): XR chest 1V Accession Number(s): [id number] cc: LUZMA TREVINO NP~ EXAMINATION: XR CHEST CLINICAL INFORMATION: Baseline COMPARISON: 06/06/2020 TECHNIQUE: Frontal view of the chest was obtained. FINDINGS: The heart and pulmonary vessels appear normal. No infiltrates, effusions or lung masses are seen. XR/XR chest 1V IMPRESSION: No acute intrathoracic disease. Dictated By:JESUS VILLARREAL MD Signed By:<Electronically signed by JESUS VILLARREAL MD in OV>06/30/202028 DD/ 12 TD/TT: Corn Cutter Operator: NEY Prescriptions: No Action venlafaxine 75 mg capsule,extended release 24hr 1 cap PO DAILY RF: 0 glipizide 10 mg tablet 1 tab PO BID RF: 0 venlafaxine 150 mg capsule,extended release 24hr 1 cap PO DAILY RF: 0 hydralazine 25 mg tablet 1 tab PO BID RF: 0 clopidogrel 75 mg tablet 1 tab PO DAILY RF: 0 spironolactone 25 mg tablet 1 tab PO DAILY RF: 0 lorazepam 0.5 mg tablet 1 tab PO BID PRN (Reason: anxiety) RF: 0 lovastatin 20 mg tablet 1 tab PO BEDTIME RF: 0 atenolol 50 mg tablet 2 tab PO DAILY RF: 0 docusate sodium 100 mg Capsule 100 mg PO DAILY PRN (Reason: Constipation) Qty: 30 RF: 0 prednisone 20 mg Tablet 20 mg PO DAILY Qty: 5 RF: 0 insulin lispro [Humalog U-100 Insulin] 100 unit/mL Solution See Protocol unit subcut QIDACHS Qty: 10 RF: 0 ipratropium-albuterol 0.5 mg-3 mg(2.5 mg base)/3 mL Solution For Nebulization 3 ml inhalation RQ4H PRN (Reason: Shortness Of Breath/Wheezing) Qty: 15 RF: 0 Breo Ellipta 100-25 mcg/dose blister with device 1 inh inhalation Q24H Qty: 28 RF: 0 albuterol sulfate 5 mg/mL solution for nebulization 2.5 mg inhalation Q6H PRN (Reason: bronchospasm) Qty: 20 RF: 0
--- NOTE | 2020-07-04 15:56 | XR_ITS ---
EXAMINATION: XR CHEST CLINICAL INFORMATION: Leukocytosis. COMPARISON: 06/30/2020 TECHNIQUE: Frontal view of the chest was obtained. FINDINGS: The lungs are well expanded. Patchy opacities are seen bilaterally greatest in the lower lungs. No pleural effusion or pneumothorax. The cardiomediastinal silhouette is within normal limits. No acute osseous abnormality. XR/XR chest 1V IMPRESSION: Patchy peripheral opacities in the bilateral lower lungs. This could be infectious or inflammatory. Consider viral pneumonia.
[2020-07-04 16:34] LABS: Basophils Percent Auto 0.1 % (0-2); Eosinophils Percent Auto 0.1 % (0-4); Hematocrit 43.8 % (42-52); Hemoglobin 14.9 g/dl (14.0-18.0); Imm Gran Abs Auto 0.15 X10*3/uL (0.00-0.03); Imm Gran Pct Auto 0.8 % (0.0-0.4); Lymphocytes Absolute Auto 0.9 X10*3/uL (1.2-4.9); Lymphocytes Percent Auto 4.8 % (20-40); MANUAL DIFF FLAG SCAN; Mean Corpuscular Hemoglobin 29.2 pg (27.0-33.0); Mean Corpuscular Volume 85.7 fL (80-98); Monocytes Absolute Auto 0.7 X10*3/uL (0.1-1.2); Monocytes Percent Auto 3.7 % (2-11); Neutrophils Absolute Auto 16.2 X10*3/uL (2.0-8.3); Neutrophils Percent Auto 90.5 % (45-73); Platelet Count 185 X10*3/uL (160-400); Red Blood Count 5.11 X10*6/uL (4.60-5.80); Red Cell Distribution Width 13.2 % (11.0-16.0); SCAN SMEAR FLAG 1; White Blood Count 17.9 X10*3/uL (4.8-10.8)
[2020-07-04 16:42] LABS: Partial Thromboplastin Time 29.8 SEC (24.1-38.0)
[2020-07-04] MEDS: ondansetron HCL 4 MG/2 ML VIAL IVPUSH (16:51)
[2020-07-04] MEDS: 0.9 % Sodium Chloride 500 ML 1000 ML IV (16:51)
[2020-07-04 16:57] LABS: Lactic Acid 1.9 mmol/L (0.5-2.0)
[2020-07-04 16:59] LABS: SLIDE REVIEW VERIFIED
[2020-07-04 17:09] LABS: Alanine Aminotransferase 20 U/L (0-40); Albumin Level 3.1 g/dL (3.5-5.0); Alkaline Phosphatase 98 U/L (39-117); Anion Gap 18 (12-20); Aspartate Amino Transferase 23 U/L (5-37); Bilirubin Total 0.6 mg/dL (0.0-1.0); Blood Urea Nitrogen 47 mg/dL (9-16); Carbon Dioxide 21 mmol/L (22-29); Chloride 95 mmol/L (96-108); Creatinine Clr Calc Pharmacy 48.5; Estimated Glomerular Filt Rate 51; Glucose Random 297 mg/dL (60-115); Potassium 5.7 mmol/l (3.3-5.1); Sodium 128 mmol/L (135-145); Total Protein 6.2 g/dL (6.5-8.0)
[2020-07-04] MEDS: 0.9 % Sodium Chloride 1,000 ML 1000 ML IV (18:31)
[2020-07-04] MEDS: Sodium Polystyrene Sulfon/Sorb 15 GM/60 ML ORAL.SUSP 60 GM PO (18:31)
[2020-07-04 20:57] LABS: Anion Gap 17 (12-20); Blood Urea Nitrogen 41 mg/dL (9-16); Calcium 7.6 mg/dL (8.4-10.2); Carbon Dioxide 22 mmol/L (22-29); Chloride 98 mmol/L (96-108); Creatinine Clr Calc Pharmacy 56.1; Estimated Glomerular Filt Rate 60; Glucose Random 280 mg/dL (60-115); Potassium 5.1 mmol/l (3.3-5.1); Sodium 132 mmol/L (135-145)
[2020-07-04 21:23] VITALS: BP 146/70; PULSE 74; RESP 18; TEMP 37; O2SAT 97
== END 2020-07-04 21:35 ==
PROVIDERS: Nurse Practitioner Primary Care; Emergency Provider Emergency Medicine; PCP Family Medicine Geriatric Medicine
DX: U07.1 COVID-19 (principal); I25.10 Atherosclerotic heart disease of native coronary artery without angina pectoris; R79.89 Other specified abnormal findings of blood chemistry; Z79.899 Other long term (current) drug therapy; Z20.828 Contact with and (suspected) exposure to other viral communicable diseases
CPT/HCPCS: 36415; 71045; 74176; 80048; 80053; 83605; 85025; 85730; 87040; 87077; 87147; 87186; 96361; 96374; 99284; J2405

== ENCOUNTER 2020-07-05 17:01 | Inpatient (IN) | payer MEDICARE, OTHER, SELFPAY ==
[2020-07-05 17:24] VITALS: BP 119/75; BP 141/74; PULSE 63; PULSE 69; RESP 16; TEMP 36.8; O2SAT 94; BMI 23.7
--- NOTE | 2020-07-05 18:29 | PC.NURSE ---
family given update over the phone
[2020-07-05 19:11] VITALS: BP 147/75; PULSE 64; RESP 20; TEMP 37.2; O2SAT 97
[2020-07-05 20:00] VITALS: BP 156/74; PULSE 60; RESP 20; O2SAT 96
[2020-07-05 20:09] LABS: MANUAL DIFF FLAG NO
[2020-07-05 20:11] LABS: Basophils Percent Auto 0.1 % (0-2); Eosinophils Percent Auto 0.1 % (0-4); Hematocrit 38.2 % (42-52); Hemoglobin 12.9 g/dl (14.0-18.0); Imm Gran Abs Auto 0.11 X10*3/uL (0.00-0.03); Imm Gran Pct Auto 1.1 % (0.0-0.4); Lymphocytes Absolute Auto 1.1 X10*3/uL (1.2-4.9); Mean Corpuscular HGB Conc 33.8 g/dl (31.0-36.0); Mean Corpuscular Hemoglobin 29.3 pg (27.0-33.0); Mean Corpuscular Volume 86.6 fL (80-98); Mean Platelet Volume 8.6 fL (9.4-12.4); Monocytes Absolute Auto 0.7 X10*3/uL (0.1-1.2); Monocytes Percent Auto 6.6 % (2-11); Neutrophils Percent Auto 81.1 % (45-73); Platelet Count 141 X10*3/uL (160-400); Red Blood Count 4.41 X10*6/uL (4.60-5.80); Red Cell Distribution Width 13.4 % (11.0-16.0); White Blood Count 9.9 X10*3/uL (4.8-10.8)
[2020-07-05 20:22] LABS: Prothrombin Time 11.9 SEC (10.8-13.0)
[2020-07-05 20:24] LABS: Partial Thromboplastin Time 27.7 SEC (24.1-38.0)
--- NOTE | 2020-07-05 20:30 | ED.RECABL ---
HPI - Recheck/Abnormal Lab/Rx General Chief Complaint: Recheck/Abnormal Lab/Rx Stated Complaint: covid+ abnormal labs Time Seen by Provider: 07/05/20 17:28 Source: patient Mode of arrival: ambulatory Limitations: no limitations History of Present Illness HPI narrative: patient presents to ED for abnormal labs. Patient has positive blood culture Gram-positive cocci that was growing on 2 cultures. Patient states just feeling tired from the COVID. Patient denies any other symptoms. Patient denies any chest pain, shortness of breath, coughing up blood, diarrhea, dysuria, fever, or chills. Related Data Home Medications Medication Instructions Recorded Confirmed atenolol 100 mg PO DAILY 06/06/20 07/06/20 glipizide 10 mg PO BID 06/06/20 07/06/20 hydralazine 25 mg PO BID 06/06/20 07/06/20 lovastatin 20 mg PO BEDTIME 06/06/20 07/06/20 venlafaxine 75 cap PO DAILY 06/06/20 07/06/20 venlafaxine 150 mg PO DAILY 06/06/20 07/06/20 acetaminophen 650 mg PO Q4H PRN 07/06/20 07/06/20 alum-mag hydroxide-simeth 30 ml PO Q4H PRN 07/06/20 07/06/20 [Ness-Lanta] ondansetron HCl [Zofran] 4 mg PO Q8H PRN 07/06/20 07/06/20 Previous Rx's Medication Instructions Recorded fluticasone furoate-vilanterol 1 inh INHALATION Q24H #28 ea 06/07/20 [Breo Ellipta] insulin lispro [Humalog U-100 See Protocol SUBCUT QIDACHS #10 ml 06/07/20 Insulin] prednisone 20 mg PO DAILY #5 tab 06/07/20 Allergies Allergy/AdvReac Type Severity Reaction Status Date / Time No Known Allergies Allergy Unknown NKA Verified 07/05/20 17:17 Review of Systems Review of Systems: Yes all other systems are reviewed and are negative Constitutional: Constitutional: Reports as per HPI and Reports no additional constitutional complaints Comments: Tired Eyes: Eyes: Reports as per HPI and Reports no additional eye complaints ENT: Reports system reviewed and no additional complaints, except as documented and Reports as per HPI Cardiovascular: Cardiovascular: Reports as per HPI and Reports no additional cardiovascular complaints Respiratory: Respiratory: Reports as per HPI and Reports no additional respiratory complaints Gastrointestinal: Gastrointestinal: Reports as per HPI and Reports no additional gastrointestinal complaints Genitourinary: Genitourinary: Reports no additional male genitourinary complaints and Reports as per HPI Musculoskeletal: Musculoskeletal: Reports no additional musculoskeletal complaints and Reports as per HPI Neurologic: Reports system reviewed and no additional complaints, except as documented and Reports as per HPI Psychiatric: Psychiatric: Reports no additional psychiatric complaints and Reports as per HPI [facility] Past Medical History Medical History COPD (chronic obstructive pulmonary disease) CVA (cerebral vascular accident) Diabetes mellitus type 1 Dizziness Hypertension Surgical History History of percutaneous coronary intervention Social History Social History Household Members: Spouse Housing: House Alcohol intake: never Smoking Status: Former smoker Smoked in Last 30 Days: Yes Second Hand Smoke Exposure: No Use of substances other than those prescribed or required for medical reasons: No Advance Directives: Yes Advance Directives on File: Yes Advance Directives Date on File: 09/30/06 service: No Current occupational status: retired Physical Exam Vital Signs: Vital Signs: Last Vital Signs Temp 98 F 07/06/20 02:03 Pulse 65 07/06/20 02:03 Resp 18 07/06/20 02:03 BP 156/76 H 07/06/20 02:03 Pulse Ox 95 07/06/20 02:03 Body Mass Index 23.7 Const: General: cooperative, healthy appearing, comfortable, no acute distress, well developed, alert and awake Orientation/consciousness: patient oriented x3 HENMT: Head: Yes normal to inspection and Yes No palpable skull fracture present Eyes: General: appearance normal, both eyes and all related structures Visual Nascimento: normal visual nascimento by confrontation Neck: Neck: Yes normal visual inspection, Yes full ROM, Yes no lymphadenopathy, Yes no meningeal signs, Yes trachea midline and Yes supple Chest: Chest palpation & inspection: normal inspection of the chest, normal palpation of entire chest wall and no localized rib tenderness Resp: Effort & Inspection: normal respiratory effort and able to speak in complete sentences Auscultation: clear to auscultation bilaterally, no rhonchi and no wheezes Cardio: Jugular venous distension: no JVD Heart sounds: S1 normal heart sound present and S2 normal heart sound present GI: Inspection: Yes normal to inspection and No abdominal wall ecchymosis Palpation (GI): Soft to palpation, not firm, nontender, no guarding and not rigid : General: No CVA tenderness and Yes no CVA tenderness Back/Spine/Pelvis: Back: no CVA tenderness, No CVA tenderness and No back tenderness Skin: General skin exam: no rashes or lesions noted Trauma: no lacerations or abrasions Neuro: General: patient oriented x3, no meningeal signs and CN's II-XI intact bilaterally Cranial nerves: Yes CN's II-XII intact bilaterally Extrem: General: Yes normal to inspection and Yes full ROM Psych: Appearance: grossly normal, well kempt and not disheveled Course Course Course Narrative: patient presently not in any distress. Patient vital signs are stable. Will do repeat labs just to make sure there is no white count. Patient had chest x-ray yesterday which showed COVID like readings. Patient vital signs are stable. Blood cultures be ordered. Reevaluation(s) Reevaluation #1: patient no longer has elevated white blood cell count. Patient lactic is negative. Patient's not in any distress. , spoke with hospitalist was informed of patient being asymptomatic, but with 2 positive blood cultures. Patient has COVID-19. She recommend patient be admitted for IV antibiotics. She recommends starting patient on Zosyn. Presently no source of infection besides patient having COVID. Patient was asked to give urinalysis but then refused. Time: 02:13 MDM - Recheck/Abnormal Lab/Rx MDM Narrative Medical decision making narrative: positive blood cultures Lab Data Result diagrams: 07/05/20 19:49 07/05/20 19:49 Labs: Lab Results 07/05/20 07/05/20 07/05/20 Range/Units 19:49 19:49 19:49 WBC 9.9 (4.8-10.8) X10*3/uL RBC 4.41 L (4.60-5.80) X10*6/uL Hgb 12.9 L (14.0-18.0) g/dl Hct 38.2 L (42-52) % MCV 86.6 (80-98) fL MCH 29.3 (27.0-33.0) pg MCHC 33.8 (31.0-36.0) g/dl RDW 13.4 (11.0-16.0) % Plt Count 141 L (160-400) X10*3/uL MPV 8.6 L (9.4-12.4) fL Immature Gran % (Auto) 1.1 H (0.0-0.4) % Neut % (Auto) 81.1 H (45-73) % Lymph % (Auto) 11.0 L (20-40) % [place] % (Auto) 6.6 (2-11) % Eos % (Auto) 0.1 (0-4) % Baso % (Auto) 0.1 (0-2) % Lymph # (Auto) 1.1 L (1.2-4.9) X10*3/uL [place] # (Auto) 0.7 (0.1-1.2) X10*3/uL Eos # (Auto) 0.0 (0.0-0.4) X10*3/uL Baso # (Auto) 0.0 (0.0-0.2) X10*3/uL Abs Immat Gran (auto) 0.11 H (0.00-0.03) X10*3/uL Absolute Neuts (auto) 8.0 (2.0-8.3) X10*3/uL Absolute Nucleated RBC 0.000 (0.0-0.012) X10*3/uL Nucleated RBC % (auto) 0.0 (0.0-0.2) /100WBC PT 11.9 (10.8-13.0) SEC INR 1.0 (0.9-1.1) APTT 27.7 (24.1-38.0) SEC Sodium 132 L (135-145) mmol/L Potassium 4.5 (3.3-5.1) mmol/l Chloride 98 (96-108) mmol/L Carbon Dioxide 25 (22-29) mmol/L Anion Gap 14 (12-20) BUN 27 H (9-16) mg/dL Creatinine 0.98 (0.5-1.4) mg/dL Estim Creat Clear Calc 69.3 Estimated GFR > 60 Random Glucose 211 H (60-115) mg/dL Lactic Acid (0.5-2.0) mmol/L Calcium 7.6 L (8.4-10.2) mg/dL Ferritin (20-250) ng/mL Total Bilirubin 0.5 (0.0-1.0) mg/dL Direct Bilirubin (0.0-0.5) mg/dL AST 15 (5-37) U/L ALT 17 (0-40) U/L Alkaline Phosphatase 90 (39-117) U/L Lactate Dehydrogenase (118-273) U/L Total Protein 5.5 L (6.5-8.0) g/dL Albumin 3.0 L (3.5-5.0) g/dL Procalcitonin ng/mL 07/05/20 07/05/20 07/05/20 Range/Units 19:49 19:49 19:50 WBC (4.8-10.8) X10*3/uL RBC (4.60-5.80) X10*6/uL Hgb (14.0-18.0) g/dl Hct (42-52) % MCV (80-98) fL MCH (27.0-33.0) pg MCHC (31.0-36.0) g/dl RDW (11.0-16.0) % Plt Count (160-400) X10*3/uL MPV (9.4-12.4) fL Immature Gran % (Auto) (0.0-0.4) % Neut % (Auto) (45-73) % Lymph % (Auto) (20-40) % [place] % (Auto) (2-11) % Eos % (Auto) (0-4) % Baso % (Auto) (0-2) % Lymph # (Auto) (1.2-4.9) X10*3/uL [place] # (Auto) (0.1-1.2) X10*3/uL Eos # (Auto) (0.0-0.4) X10*3/uL Baso # (Auto) (0.0-0.2) X10*3/uL Abs Immat Gran (auto) (0.00-0.03) X10*3/uL Absolute Neuts (auto) (2.0-8.3) X10*3/uL Absolute Nucleated RBC (0.0-0.012) X10*3/uL Nucleated RBC % (auto) (0.0-0.2) /100WBC PT (10.8-13.0) SEC INR (0.9-1.1) APTT (24.1-38.0) SEC Sodium (135-145) mmol/L Potassium (3.3-5.1) mmol/l Chloride (96-108) mmol/L Carbon Dioxide (22-29) mmol/L Anion Gap (12-20) BUN (9-16) mg/dL Creatinine (0.5-1.4) mg/dL Estim Creat Clear Calc Estimated GFR Random Glucose (60-115) mg/dL Lactic Acid 1.0 (0.5-2.0) mmol/L Calcium (8.4-10.2) mg/dL Ferritin 1444 H (20-250) ng/mL Total Bilirubin 0.5 (0.0-1.0) mg/dL Direct Bilirubin 0.3 (0.0-0.5) mg/dL AST 14 (5-37) U/L ALT 17 (0-40) U/L Alkaline Phosphatase 90 (39-117) U/L Lactate Dehydrogenase 268 (118-273) U/L Total Protein 5.5 L (6.5-8.0) g/dL Albumin 3.0 L (3.5-5.0) g/dL Procalcitonin 0.04 ng/mL Discharge Plan Discharge Clinical Impression: Blood bacterial culture positive Patient Disposition: Admitted As Inpatient Interventions: Admission Worksheet (ED) Last Done: 07/06/20 02:01
[2020-07-05 20:33] LABS: Alanine Aminotransferase 17 U/L (0-40); Alkaline Phosphatase 90 U/L (39-117); Anion Gap 14 (12-20); Aspartate Amino Transferase 15 U/L (5-37); Bilirubin Total 0.5 mg/dL (0.0-1.0); Blood Urea Nitrogen 27 mg/dL (9-16); Calcium 7.6 mg/dL (8.4-10.2); Carbon Dioxide 25 mmol/L (22-29); Chloride 98 mmol/L (96-108); Creatinine Clr Calc Pharmacy 69.3; Estimated Glomerular Filt Rate > 60; Glucose Random 211 mg/dL (60-115); Potassium 4.5 mmol/l (3.3-5.1); Sodium 132 mmol/L (135-145); Total Protein 5.5 g/dL (6.5-8.0)
[2020-07-05 20:34] LABS: Alanine Aminotransferase 17 U/L (0-40); Alkaline Phosphatase 90 U/L (39-117); Aspartate Amino Transferase 14 U/L (5-37); Bilirubin Direct 0.3 mg/dL (0.0-0.5); Bilirubin Total 0.5 mg/dL (0.0-1.0); Lactate Dehydrogenase 268 U/L (118-273); Total Protein 5.5 g/dL (6.5-8.0)
[2020-07-05 20:52] LABS: Procalcitonin 0.04 ng/mL
[2020-07-05 20:54] LABS: Ferritin 1444 ng/mL (20-250)
[2020-07-05 22:00] VITALS: BP 141/73; PULSE 63; RESP 20; TEMP 36.6; O2SAT 96
[2020-07-06] VITALS (10 sets, daily range): BP systolic 138–170; BP diastolic 70–81; PULSE 60–67; RESP 18–19; TEMP 36–36.6; O2SAT 92–96; BMI 23.6
--- NOTE | 2020-07-06 | US_ITS ---
EXAMINATION: US VENOUS ULTRASOUND WITH DOPPLER LOWER EXTREMITY, BILATERAL CLINICAL INFORMATION: Leg weakness COMPARISON: None TECHNIQUE: Ultrasound of the deep veins is performed from the hip to the calf with compression sonography and color and pulse Doppler assessment. Spectral analysis with color-flow imaging is performed. FINDINGS: RIGHT: There is normal venous compression and respiratory variation and augmented flow. The visualized common femoral vein, superficial femoral vein, profunda femoral vein, popliteal vein, and the trifurcation region shows no evidence of deep venous thrombosis. There is no significant popliteal fossa cyst. LEFT: There is normal venous compression and respiratory variation and augmented flow. The visualized common femoral vein, superficial femoral vein, profunda femoral vein, popliteal vein, and the trifurcation region shows no evidence of deep venous thrombosis. There is no significant popliteal fossa cyst. If the patient's symptoms persist, followup ultrasound in 5 days 7 days might be of value to exclude proximal propagation from a non-visualized calf vein. US/US venous duplex LE BI IMPRESSION: No DVT demonstrated in the bilateral lower extremity.
--- NOTE | 2020-07-06 01:11 | PC.NURSE ---
hospitalist called reg stat pre op vancomycin order. verbal order to disreguard the order per hopsitalist.
[2020-07-06 02:11] LABS: Glucose, Whole Blood 124 mg/dL (60-115)
[2020-07-06] MEDS: vancomycin HCL 1,000 MG in 0.9 % Sodium Chloride 250 ML 180 MG IV (03:09)
[2020-07-06] MEDS: 0.9 % Sodium Chloride Flush 3 ML SYRINGE IVFLUSH ×4 (03:09→21:37)
--- NOTE | 2020-07-06 05:27 | PM.IMHP ---
History of Present Illness Date of Service: 07/05/20 Chief Complaint: bacteremia this is a 64-year-old male with an extensive past medical history as below who presents to the hospital after initially presenting on 07/01 with generalized weakness and poor appetite. At that time COVID tested and was positive and blood cultures were collected. Patient was sent to rehab, but blood cultures came back positive and 07/04 and patient was called to come back to the ED. Patient is very frustrated with the fact that he had to come back to the hospital,not cooperating with my exam, and is unwilling to answer most of my questions. although most of his answers are I do not know , he denies any shortness of breath, no chest pain, no fever or chills, no abdominal pain or nausea or vomiting, no diarrhea or constipation. No urinary symptoms. it appears the patient at [facility] has been doing well, tolerating p.o., afebrile, and no acute Issues. His preliminary blood cultures showed Gram-positive cocci 2/2 bottles. currently patient hemodynamically stable with no significant abnormal vitals, afebrile, labs are significant for WBC count of 9.9, lymphopenia, sodium of 132, otherwise unremarkable. UA pending collection chest x-ray from 07/04 showed patchy peripheral opacities in the bilateral lower lungs, abdominal CT showed no acute abnormality in the abdomen or pelvis, Patient will be admitted for bacteremia, and IV antibiotics patient unwilling to give me any information about his past medical history and is frustrated with my questions based on EMR from 2016 it appears the patient has history of: CAD, COPD, CVA with left-sided weakness, depression, hypertension, hyperlipidemia, diabetes surgical history: PCI with stents, tonsillectomy social history: [place] Review of Systems Neurologic: Reports system reviewed and no additional complaints, except as documented and Reports as per [facility] Medical History COPD (chronic obstructive pulmonary disease) CVA (cerebral vascular accident) Diabetes mellitus type 1 Dizziness Hypertension Surgical History History of percutaneous coronary intervention Social History Household Members: Spouse Housing: Apartment Do you presently have visiting nurse or other home services: No Alcohol intake: never Smoking Status: Former smoker Smoked in Last 30 Days: Yes Second Hand Smoke Exposure: No Use of substances other than those prescribed or required for medical reasons: No Have you been hit, kicked, punched, or otherwise hurt by someone within the past year? If so, by whom?: No Do you feel safe in your current relationship?: Yes Is there a partner from a previous relationship who is making you feel unsafe now?: No Are you made to feel afraid or neglected: No Advance Directives: Yes Advance Directives on File: Yes Advance Directives Date on File: 09/30/06 Do you have thoughts of harming others: None Do you have a plan to hurt others: No Plan Recently lost weight without trying: No service: No Current occupational status: retired [employer] Allergies Allergy/AdvReac Type Severity Reaction Status Date / Time No Known Allergies Allergy Unknown NKA Verified 07/05/20 17:17 Home Medications Medication Instructions Recorded Confirmed Type atenolol 100 mg PO DAILY 06/06/20 07/06/20 History glipizide 10 mg PO BID 06/06/20 07/06/20 History hydralazine 25 mg PO BID 06/06/20 07/06/20 History lovastatin 20 mg PO BEDTIME 06/06/20 07/06/20 History venlafaxine 75 cap PO DAILY 06/06/20 07/06/20 History venlafaxine 150 mg PO DAILY 06/06/20 07/06/20 History acetaminophen 650 mg PO Q4H PRN 07/06/20 07/06/20 History alum-mag hydroxide-simeth 30 ml PO Q4H PRN 07/06/20 07/06/20 History [Ness-Lanta] ondansetron HCl [Zofran] 4 mg PO Q8H PRN 07/06/20 07/06/20 History Physical Exam Vital Signs and Narrative: Vital Signs: Last Vital Signs Temp 97.6 F 07/06/20 03:35 Pulse 60 07/06/20 03:35 Resp 19 07/06/20 03:35 BP 148/70 H 07/06/20 03:35 Pulse Ox 95 07/06/20 03:35 Body Mass Index 23.6 Const: Other: Not cooperative General: no acute distress, poor hygiene and tired appearing Orientation/consciousness: Other orientation findings ( unable to assess orientation as patient not willing to answer my questi) Eyes: General: appearance normal, both eyes and all related structures Pupils: Equal, round and reactive pupils present Resp: Effort & Inspection: normal respiratory effort and able to speak in complete sentences Auscultation: clear to auscultation bilaterally Cardio: Rate: regular rate Rhythm: regular rhythm GI: Palpation (GI): Soft to palpation Auscultation: normal bowel sounds Skin: General skin exam: no rashes or lesions noted Neuro: Cranial nerves: Yes Equal, round and reactive pupils present Cognition (Neuro): normal cognition Extrem: General: Yes normal to inspection and Yes no pedal edema Results Labs CBC and Chem 7: 07/05/20 19:49 07/05/20 19:49 Labs: Laboratory Results - last 24 hr 07/05/20 07/05/20 07/05/20 19:49 19:49 19:49 MCV 86.6 MCH 29.3 MCHC 33.8 RDW 13.4 Plt Count 141 L MPV 8.6 L Immature Gran % (Auto) 1.1 H Neut % (Auto) 81.1 H Lymph % (Auto) 11.0 L [place] % (Auto) 6.6 Eos % (Auto) 0.1 Baso % (Auto) 0.1 Lymph # (Auto) 1.1 L [place] # (Auto) 0.7 Eos # (Auto) 0.0 Baso # (Auto) 0.0 Abs Immat Gran (auto) 0.11 H Absolute Neuts (auto) 8.0 Absolute Nucleated RBC 0.000 Nucleated RBC % (auto) 0.0 PT 11.9 INR 1.0 APTT 27.7 Anion Gap 14 Estim Creat Clear Calc 69.3 Estimated GFR > 60 POC Glucose Random Glucose 211 H Lactic Acid Calcium 7.6 L Ferritin Total Bilirubin 0.5 Direct Bilirubin AST 15 ALT 17 Alkaline Phosphatase 90 Lactate Dehydrogenase Total Protein 5.5 L Albumin 3.0 L Procalcitonin 07/05/20 07/05/20 07/05/20 19:49 19:49 19:50 MCV MCH MCHC RDW Plt Count MPV Immature Gran % (Auto) Neut % (Auto) Lymph % (Auto) [place] % (Auto) Eos % (Auto) Baso % (Auto) Lymph # (Auto) [place] # (Auto) Eos # (Auto) Baso # (Auto) Abs Immat Gran (auto) Absolute Neuts (auto) Absolute Nucleated RBC Nucleated RBC % (auto) PT INR APTT Anion Gap Estim Creat Clear Calc Estimated GFR POC Glucose Random Glucose Lactic Acid 1.0 Calcium Ferritin 1444 H Total Bilirubin 0.5 Direct Bilirubin 0.3 AST 14 ALT 17 Alkaline Phosphatase 90 Lactate Dehydrogenase 268 Total Protein 5.5 L Albumin 3.0 L Procalcitonin 0.04 07/06/20 02:06 MCV MCH MCHC RDW Plt Count MPV Immature Gran % (Auto) Neut % (Auto) Lymph % (Auto) [place] % (Auto) Eos % (Auto) Baso % (Auto) Lymph # (Auto) [place] # (Auto) Eos # (Auto) Baso # (Auto) Abs Immat Gran (auto) Absolute Neuts (auto) Absolute Nucleated RBC Nucleated RBC % (auto) PT INR APTT Anion Gap Estim Creat Clear Calc Estimated GFR POC Glucose 124 H Random Glucose Lactic Acid Calcium Ferritin Total Bilirubin Direct Bilirubin AST ALT Alkaline Phosphatase Lactate Dehydrogenase Total Protein Albumin Procalcitonin Assessment and Plan (1) Blood bacterial culture positive: Status: Acute (2) COVID-19: Status: Acute (3) Failure to thrive: Status: Acute (4) Hypertension: Status: Inactive (5) Diabetes mellitus type 1: Status: Inactive (6) COPD (chronic obstructive pulmonary disease): Status: Inactive this is a 64-year-old male who is positive for COVID-19 on 07/01 who Was recalled to the hospital due to positive blood cultures from in previous admission. # Bacteremia - unclear etiology, possibly secondary to superimposed bacterial pneumonia - CT abdomen negative, chest x-ray shows bilateral infiltrates in the setting of COVID-19 infection - patient afebrile, no leukocytosis at this time and otherwise hemodynamically stable. Plan: - You set of cultures have been collected, awaiting UA - start patient on vancomycin, can deescalate once have final culture # COVID-19 pneumonia - no hypoxia at this time, will monitor respiratory status and supplement oxygen as necessary # hypertension - stable - continue atenolol # diabetes mellitus - on glipizide- will hold - start low-dose sliding scale insulin, diabetic diet # COPD - has no evidence of exacerbation at this time - currently on prednisone 20 mg from previous presentation in early June- will continue # hyperlipidemia - continue statin # depression - continue venlafaxine DVT prophylaxis: heparin subcu
[2020-07-06 06:31] LABS: MANUAL DIFF FLAG NO
[2020-07-06 06:46] LABS: Glucose Urine UA 250 MG/DL (NEG); Leukocyte Esterase Urine NEG (NEG); Nitrite Urine NEG (NEG); Specific Gravity - Urine >= 1.030 (1.005-1.025); Urine Blood NEG (NEG); Urine Ketones 15 MG/DL (NEG); Urine Protein 2+ MG/DL (NEG-TRACE)
[2020-07-06 06:49] LABS: Basophils Percent Auto 0.3 % (0-2); Eosinophils Absolute Auto 0.1 X10*3/uL (0.0-0.4); Eosinophils Percent Auto 0.8 % (0-4); Hematocrit 37.6 % (42-52); Hemoglobin 12.6 g/dl (14.0-18.0); Imm Gran Abs Auto 0.11 X10*3/uL (0.00-0.03); Lymphocytes Absolute Auto 1.7 X10*3/uL (1.2-4.9); Lymphocytes Percent Auto 16.1 % (20-40); Mean Corpuscular HGB Conc 33.5 g/dl (31.0-36.0); Mean Corpuscular Hemoglobin 29.2 pg (27.0-33.0); Mean Corpuscular Volume 87.2 fL (80-98); Mean Platelet Volume 8.9 fL (9.4-12.4); Monocytes Absolute Auto 0.9 X10*3/uL (0.1-1.2); Monocytes Percent Auto 8.8 % (2-11); Neutrophils Absolute Auto 7.7 X10*3/uL (2.0-8.3); Platelet Count 146 X10*3/uL (160-400); Red Blood Count 4.31 X10*6/uL (4.60-5.80); Red Cell Distribution Width 13.5 % (11.0-16.0); White Blood Count 10.6 X10*3/uL (4.8-10.8)
[2020-07-06 06:53] LABS: Appearance Urine CLEAR; Color Urine YELLOW
[2020-07-06 06:59] LABS: RBC Urine 0 /HPF (0); Squamous Epithelial Cell Urine TRACE /LPF; WBC Urine 0-2 /HPF (0-4)
[2020-07-06 07:17] LABS: Anion Gap 14 (12-20); Blood Urea Nitrogen 25 mg/dL (9-16); Calcium 7.7 mg/dL (8.4-10.2); Carbon Dioxide 23 mmol/L (22-29); Chloride 100 mmol/L (96-108); Creatinine Clr Calc Pharmacy 79.9; Estimated Glomerular Filt Rate > 60; Glucose Random 117 mg/dL (60-115); Potassium 3.8 mmol/l (3.3-5.1); Sodium 133 mmol/L (135-145)
[2020-07-06 07:50] LABS: Glucose, Whole Blood 122 mg/dL (60-115)
[2020-07-06] MEDS: atenoloL 100 MG TABLET PO (08:29)
[2020-07-06] MEDS: predniSONE 20 MG TABLET PO (08:29)
[2020-07-06] MEDS: hydrALAZINE HCl 25 MG TABLET PO ×2 (08:29→21:37)
[2020-07-06] MEDS: Venlafaxine HCl ER 150 MG CAP.ER.24H PO (08:29)
[2020-07-06] MEDS: Venlafaxine HCl ER 75 MG CAP.ER.24H PO (08:29)
--- NOTE | 2020-07-06 09:02 | MHC.CM.PN ---
Patient is (+) Covid; CM spoke with /HCP/[place].Patient comes from [facility] [place] and the goal is for him to return there.Patient lives in an apartment with Savana and uses a walker to assist with mobility.Patient has had [facility] in the past.CM has initiated and will follow for dc planning. IMM addressed with Savana and the original is being mailed certified letter to her and a copy has been placed on the chart.
[2020-07-06 11:23] LABS: Glucose, Whole Blood 161 mg/dL (60-115)
[2020-07-06] MEDS: Insulin Lispro 100 UNIT/ML 3 ML VIAL SUBCUT ×2 (12:01→17:27)
--- NOTE | 2020-07-06 13:23 | P.CNID_ITS ---
History of Present Illness Data of Consult Service Date: 07/06/20 Requesting physician: Kassi Smallwood Primary Care Provider: Unknown Physician HPI Reason for consult: bacteremia He presents to hospital after being told to return due to positive blood cultures He had presented with weakness on 07/01 and diagnosed with COVID He has been at [facility] Blood cultures done for fatigue showed coagulase neg staph Review of Systems Constitutional: Constitutional: Reports weakness Neurologic: Reports system reviewed and no additional complaints, except as documented and Reports as per HPI [facility] Past Medical History Medical History COPD (chronic obstructive pulmonary disease) CVA (cerebral vascular accident) Diabetes mellitus type 1 Dizziness Hypertension Family History Family history: reviewed and not pertinent Surgical History Surgical History History of percutaneous coronary intervention Social History Social History Household Members: Spouse Housing: Apartment Do you presently have visiting nurse or other home services: No Alcohol intake: never Smoking Status: Former smoker Smoked in Last 30 Days: Yes Second Hand Smoke Exposure: No Use of substances other than those prescribed or required for medical reasons: No Currently Displaying Signs/Symptoms of Drug Intoxication Withdrawal: No Have you been hit, kicked, punched, or otherwise hurt by someone within the past year? If so, by whom?: No Do you feel safe in your current relationship?: Yes Is there a partner from a previous relationship who is making you feel unsafe no w?: No Are you made to feel afraid or neglected: No Advance Directives: Yes Advance Directives on File: Yes Advance Directives Date on File: 09/30/06 Do you have thoughts of harming others: None Do you have a plan to hurt others: No Plan Recently lost weight without trying: No service: No Current occupational status: retired Meds Allergies Allergy/AdvReac Type Severity Reaction Status Date / Time No Known Allergies Allergy Unknown NKA Verified 07/05/20 17:17 Home Medications Medication Instructions Recorded Confirmed Type atenolol 100 mg PO DAILY 06/06/20 07/06/20 History glipizide 10 mg PO BID 06/06/20 07/06/20 History hydralazine 25 mg PO BID 06/06/20 07/06/20 History lovastatin 20 mg PO BEDTIME 06/06/20 07/06/20 History venlafaxine 75 cap PO DAILY 06/06/20 07/06/20 History venlafaxine 150 mg PO DAILY 06/06/20 07/06/20 History acetaminophen 650 mg PO Q4H PRN 07/06/20 07/06/20 History alum-mag hydroxide-simeth 30 ml PO Q4H PRN 07/06/20 07/06/20 History [[place]] ondansetron HCl [Zofran] 4 mg PO Q8H PRN 07/06/20 07/06/20 History Physical Exam Vital Signs: Vital Signs: Last Vital Signs Temp 98 F 07/06/20 11:04 Pulse 66 07/06/20 11:04 Resp 18 07/06/20 11:04 BP 160/75 H 07/06/20 11:04 Pulse Ox 96 07/06/20 11:04 Body Mass Index 23.6 Const: General: cooperative Orientation/consciousness: oriented to person, oriented to place and oriented to time HENMT: Head: Yes normal to inspection Resp: Effort & Inspection: normal respiratory effort Cardio: Rate: regular rate Rhythm: regular rhythm GI: Inspection: Yes normal to inspection Skin: General skin exam: no rashes or lesions noted Neuro: General: oriented to person, oriented to place and oriented to time Extrem: General: Yes normal to inspection Assessment and Plan (1) Blood bacterial culture positive: Problem details: The blood cultures appear to be contaminant He has no lines in place or infected prosthesis Status: Acute Stop Vancomycin (2) COVID-19: Problem details: I 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 Consider recheck leg u/s evaluate clot and echo evaluate ejection fraction if no t done last two weeks Status: Acute Results Labs CBC & Chem 7: 07/06/20 05:54 07/06/20 05:54 Labs: Short CBC 07/05/20 07/06/20 Range/Units 19:49 05:54 WBC 9.9 10.6 (4.8-10.8) X10*3/uL Hgb 12.9 L 12.6 L (14.0-18.0) g/dl Hct 38.2 L 37.6 L (42-52) % Plt Count 141 L 146 L (160-400) X10*3/uL BMP 07/05/20 07/06/20 19:49 05:54 Sodium 132 L 133 L Potassium 4.5 3.8 Chloride 98 100 Carbon Dioxide 25 23 BUN 27 H 25 H Creatinine 0.98 0.85 Calcium 7.6 L 7.7 L Liver Function 07/05/20 07/05/20 Range/Units 19:49 19:49 Total Bilirubin 0.5 0.5 (0.0-1.0) mg/dL Direct Bilirubin 0.3 (0.0-0.5) mg/dL AST 15 14 (5-37) U/L ALT 17 17 (0-40) U/L Alkaline Phosphatase 90 90 (39-117) U/L Albumin 3.0 L 3.0 L (3.5-5.0) g/dL Urine 07/06/20 Range/Units 06:27 Urine Color YELLOW Urine Appearance CLEAR Urine pH 6.0 (5.0-8.0) Ur Specific [place] >= 1.030 H (1.005-1.025) Urine Protein 2+ H (NEG-TRACE) MG/DL Urine Glucose (UA) 250 H (NEG) MG/DL
--- NOTE | 2020-07-06 14:56 | HO.PM.IMPN ---
Subjective Subjective Date of Service: 07/06/20 Interval History: No fever, chills, dyspnea, or cough. No skin rashes or abscesses. Very weak. Physical Exam Vital Signs: Vital Signs: Last Vital Signs Temp 98 F 07/06/20 11:04 Pulse 66 07/06/20 11:04 Resp 18 07/06/20 11:04 BP 160/75 H 07/06/20 11:04 Pulse Ox 96 07/06/20 11:04 Body Mass Index 23.6 gen: NAD lungs: auscultatation deferred due to COVID-19. no resp distress CV: regular pulse abd: non-distended ext: no C/C/E Objective Data Current Medications Generic Name Dose Route Start Last Admin Trade Name Freq PRN Reason Stop Dose Admin Acetaminophen 650 mg 07/06/20 01:54 Acetaminophen 325 Mg Tablet PO Q6H PRN Pain, Mild (Pain Scale 1-3) Atenolol 100 mg 07/06/20 09:00 07/06/20 08:29 Atenolol 100 Mg Tablet PO 100 mg DAILY [facility] Administration Protocol Docusate Sodium 100 mg 07/06/20 01:54 Docusate Sodium 100 Mg Capsule PO DAILY PRN Constipation Fluticasone/Vilanterol 1 puff 07/06/20 08:00 07/06/20 07:30 Fluticasone/Vilanterol 100/25 Blst.W.Dev INHALE Not Given RDAILY [facility] Heparin Sodium (Porcine) 5,000 unit 07/06/20 06:00 07/06/20 06:29 Heparin Sodium,Porcine 5,000 Unit/Ml Vial SUBCUT Not Given Q12H [facility] Hydralazine HCl 25 mg 07/06/20 09:00 07/06/20 08:29 Hydralazine Hcl 25 Mg Tablet PO 25 mg BID [facility] Administration Protocol Insulin Human Lispro 0 unit 07/06/20 07:30 07/06/20 12:01 Insulin Lispro 100 Unit/Ml 3 Ml Vial SUBCUT 2 unit QIDACHS [facility] Administration Protocol Ondansetron HCl 4 mg 07/06/20 01:54 Ondansetron Hcl 4 Mg/2 Ml Vial IVPUSH Q8H PRN Nausea and Vomiting Pravastatin Sodium 20 mg 07/06/20 21:00 Pravastatin Sodium 20 Mg Tablet PO BEDTIME [facility] Prednisone 20 mg 07/06/20 09:00 07/06/20 08:29 Prednisone 20 Mg Tablet PO 20 mg DAILY RASHI Administration Sodium Chloride 3 ml 07/06/20 01:54 07/06/20 08:29 0.9 % Sodium Chloride Flush 3 Ml Syringe IVFLUSH 3 ml QSHIFT RASHI Administration Venlafaxine HCl 75 mg 07/06/20 09:00 07/06/20 08:29 Venlafaxine Hcl Er 75 Mg Cap.Er.24h PO 75 mg DAILY RASHI Administration Venlafaxine HCl 150 mg 07/06/20 09:00 07/06/20 08:29 Venlafaxine Hcl Er 150 Mg Cap.Er.24h PO 150 mg DAILY RASHI Administration Labs CBC & Chem 7: 07/06/20 05:54 07/06/20 05:54 Labs: Laboratory Results - last 24 hr 07/05/20 07/05/20 07/05/20 19:49 19:49 19:49 WBC 9.9 RBC 4.41 L Hgb 12.9 L Hct 38.2 L MCV 86.6 MCH 29.3 MCHC 33.8 RDW 13.4 Plt Count 141 L MPV 8.6 L Immature Gran % (Auto) 1.1 H Neut % (Auto) 81.1 H Lymph % (Auto) 11.0 L [place] % (Auto) 6.6 Eos % (Auto) 0.1 Baso % (Auto) 0.1 Lymph # (Auto) 1.1 L [place] # (Auto) 0.7 Eos # (Auto) 0.0 Baso # (Auto) 0.0 Abs Immat Gran (auto) 0.11 H Absolute Neuts (auto) 8.0 Absolute Nucleated RBC 0.000 Nucleated RBC % (auto) 0.0 PT 11.9 INR 1.0 APTT 27.7 Sodium 132 L Potassium 4.5 Chloride 98 Carbon Dioxide 25 Anion Gap 14 BUN 27 H Creatinine 0.98 Estim Creat Clear Calc 69.3 Estimated GFR > 60 POC Glucose Random Glucose 211 H Lactic Acid Calcium 7.6 L Ferritin Total Bilirubin 0.5 Direct Bilirubin AST 15 ALT 17 Alkaline Phosphatase 90 Lactate Dehydrogenase Total Protein 5.5 L Albumin 3.0 L Procalcitonin Urine Color Urine Appearance Urine pH Ur Specific [place] Urine Protein Urine Glucose (UA) Urine Ketones Urine Blood Urine Nitrite Ur Leukocyte Esterase Urine RBC Urine WBC Ur Squamous Epith Cells Urine Bacteria 07/05/20 07/05/20 07/05/20 19:49 19:49 19:50 WBC RBC Hgb Hct MCV MCH MCHC RDW Plt Count MPV Immature Gran % (Auto) Neut % (Auto) Lymph % (Auto) [place] % (Auto) Eos % (Auto) Baso % (Auto) Lymph # (Auto) [place] # (Auto) Eos # (Auto) Baso # (Auto) Abs Immat Gran (auto) Absolute Neuts (auto) Absolute Nucleated RBC Nucleated RBC % (auto) PT INR APTT Sodium Potassium Chloride Carbon Dioxide Anion Gap BUN Creatinine Estim Creat Clear Calc Estimated GFR POC Glucose Random Glucose Lactic Acid 1.0 Calcium Ferritin 1444 H Total Bilirubin 0.5 Direct Bilirubin 0.3 AST 14 ALT 17 Alkaline Phosphatase 90 Lactate Dehydrogenase 268 Total Protein 5.5 L Albumin 3.0 L Procalcitonin 0.04 Urine Color Urine Appearance Urine pH Ur Specific [place] Urine Protein Urine Glucose (UA) Urine Ketones Urine Blood Urine Nitrite Ur Leukocyte Esterase Urine RBC Urine WBC Ur Squamous Epith Cells Urine Bacteria 07/06/20 07/06/20 07/06/20 02:06 05:54 05:54 WBC 10.6 RBC 4.31 L Hgb 12.6 L Hct 37.6 L MCV 87.2 MCH 29.2 MCHC 33.5 RDW 13.5 Plt Count 146 L MPV 8.9 L Immature Gran % (Auto) 1.0 H Neut % (Auto) 73.0 Lymph % (Auto) 16.1 L [place] % (Auto) 8.8 Eos % (Auto) 0.8 Baso % (Auto) 0.3 Lymph # (Auto) 1.7 [place] # (Auto) 0.9 Eos # (Auto) 0.1 Baso # (Auto) 0.0 Abs Immat Gran (auto) 0.11 H Absolute Neuts (auto) 7.7 Absolute Nucleated RBC 0.000 Nucleated RBC % (auto) 0.0 PT INR APTT Sodium 133 L Potassium 3.8 Chloride 100 Carbon Dioxide 23 Anion Gap 14 BUN 25 H Creatinine 0.85 Estim Creat Clear Calc 79.9 Estimated GFR > 60 POC Glucose 124 H Random Glucose 117 H D Lactic Acid Calcium 7.7 L Ferritin Total Bilirubin Direct Bilirubin AST ALT Alkaline Phosphatase Lactate Dehydrogenase Total Protein Albumin Procalcitonin Urine Color Urine Appearance Urine pH Ur Specific [place] Urine Protein Urine Glucose (UA) Urine Ketones Urine Blood Urine Nitrite Ur Leukocyte Esterase Urine RBC Urine WBC Ur Squamous Epith Cells Urine Bacteria 07/06/20 07/06/20 07/06/20 06:27 07:40 11:01 WBC RBC Hgb Hct MCV MCH MCHC RDW Plt Count MPV Immature Gran % (Auto) Neut % (Auto) Lymph % (Auto) [place] % (Auto) Eos % (Auto) Baso % (Auto) Lymph # (Auto) [place] # (Auto) Eos # (Auto) Baso # (Auto) Abs Immat Gran (auto) Absolute Neuts (auto) Absolute Nucleated RBC Nucleated RBC % (auto) PT INR APTT Sodium Potassium Chloride Carbon Dioxide Anion Gap BUN Creatinine Estim Creat Clear Calc Estimated GFR POC Glucose 122 H 161 H Random Glucose Lactic Acid Calcium Ferritin Total Bilirubin Direct Bilirubin AST ALT Alkaline Phosphatase Lactate Dehydrogenase Total Protein Albumin Procalcitonin Urine Color YELLOW Urine Appearance CLEAR Urine pH 6.0 Ur Specific [place] >= 1.030 H Urine Protein 2+ H Urine Glucose (UA) 250 H Urine Ketones 15 Urine Blood NEG Urine Nitrite NEG Ur Leukocyte Esterase NEG Urine RBC 0 Urine WBC 0-2 Ur Squamous Epith Cells TRACE Urine Bacteria NONE 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 [place]] who tested positive for COVID-19 06/27/20 and was called in due to 2/2 BCx positive for GPCs but which just were identified as coag-neg staph # COVID-19 PNA - not hypoxic. no remdesivir. ID consult. on prednisone for prior COPD exacerbation # bacteremia - not, d/c vancomycin # COPD exacerbation [prior diagnosis] - taper prednisone, continue LABA/ICS # HTN - continue atenolol, hydralazine # DM2 - correction-dose lispro # HLD - continue statin # depression - continue venlafaxine # VTE ppx - LMWH
[2020-07-06 15:46] LABS: Glucose, Whole Blood 217 mg/dL (60-115)
[2020-07-06] MEDS: Heparin Sodium,Porcine 5,000 UNIT/ML VIAL 5000 UNIT SUBCUT (17:28)
--- NOTE | 2020-07-06 18:34 | PC.NURSE ---
Patient refusing repositioning from staff. Tried to refuse doppler ultra sound of bilat lower extremities. Nurse had to provide education and encouragement and he did allow the ultrasound.
[2020-07-06 20:14] LABS: Glucose, Whole Blood 221 mg/dL (60-115)
[2020-07-06] MEDS: Pravastatin Sodium 20 MG TABLET PO (21:36)
[2020-07-07 03:28] VITALS: BP 133/70; PULSE 70; RESP 18; TEMP 36.2; O2SAT 96
[2020-07-07] MEDS: Heparin Sodium,Porcine 5,000 UNIT/ML VIAL 5000 UNIT SUBCUT ×2 (06:02→17:10)
[2020-07-07 06:59] LABS: MANUAL DIFF FLAG NO
[2020-07-07 07:07] LABS: Basophils Percent Auto 0.3 % (0-2); Eosinophils Absolute Auto 0.1 X10*3/uL (0.0-0.4); Eosinophils Percent Auto 0.7 % (0-4); Hematocrit 38.2 % (42-52); Hemoglobin 12.9 g/dl (14.0-18.0); Imm Gran Abs Auto 0.16 X10*3/uL (0.00-0.03); Imm Gran Pct Auto 1.4 % (0.0-0.4); Lymphocytes Absolute Auto 1.7 X10*3/uL (1.2-4.9); Lymphocytes Percent Auto 14.2 % (20-40); Mean Corpuscular HGB Conc 33.8 g/dl (31.0-36.0); Mean Corpuscular Hemoglobin 29.9 pg (27.0-33.0); Mean Corpuscular Volume 88.4 fL (80-98); Mean Platelet Volume 8.9 fL (9.4-12.4); Monocytes Percent Auto 8.4 % (2-11); Neutrophils Absolute Auto 8.9 X10*3/uL (2.0-8.3); Platelet Count 155 X10*3/uL (160-400); Red Blood Count 4.32 X10*6/uL (4.60-5.80); Red Cell Distribution Width 13.6 % (11.0-16.0); White Blood Count 11.8 X10*3/uL (4.8-10.8)
[2020-07-07 07:49] LABS: Glucose, Whole Blood 120 mg/dL (60-115)
[2020-07-07 08:00] VITALS: BP 126/61; PULSE 69; RESP 18; TEMP 36.4; O2SAT 96
[2020-07-07 08:05] LABS: Alanine Aminotransferase 18 U/L (0-40); Albumin Level 2.9 g/dL (3.5-5.0); Alkaline Phosphatase 87 U/L (39-117); Aspartate Amino Transferase 13 U/L (5-37); Bilirubin Total 0.4 mg/dL (0.0-1.0); Blood Urea Nitrogen 25 mg/dL (9-16); C Reactive Protein 0.96 mg/dL (< or = 0.50); Calcium 7.7 mg/dL (8.4-10.2); Creatinine Clr Calc Pharmacy 76.3; Estimated Glomerular Filt Rate > 60; Glucose Random 117 mg/dL (60-115); Lactate Dehydrogenase 261 U/L (118-273); Total Protein 5.3 g/dL (6.5-8.0)
[2020-07-07 08:14] LABS: Anion Gap 13 (12-20); Carbon Dioxide 27 mmol/L (22-29); Chloride 99 mmol/L (96-108); Potassium 4.8 mmol/l (3.3-5.1); Sodium 134 mmol/L (135-145)
[2020-07-07] MEDS: 0.9 % Sodium Chloride Flush 3 ML SYRINGE IVFLUSH ×2 (09:02→15:09)
[2020-07-07 10:00] LABS: Procalcitonin 0.02 ng/mL
--- NOTE | 2020-07-07 11:25 | P.PNIM_ITS ---
Subjective Subjective Date of Service: 07/07/20 Interval History: Patient refusing to eat, drink, or take meds. States leave me alone . Per his Savana [phone] his personality has deteriorated since prior hospitalization in May and at times he no longer recognizes her. She is concerned that he was taken off olanzapine 20 mg qhs, which he had been on for many years. It is unclear to me why this was not continued on his last hospitalization or at the SNF. He does not cooperate with ROS but has no fever and is in no apparent respiratory sitress. Physical Exam Vital Signs: Vital Signs: Last Vital Signs Temp 97.5 F 07/07/20 08:00 Pulse 69 07/07/20 08:00 Resp 18 07/07/20 08:00 BP 126/61 07/07/20 08:00 Pulse Ox 96 07/07/20 08:00 Body Mass Index 23.6 gen: restricted affect, uncooperative lungs: auscultation deferred due to COVID-19. no resp distress CV: regular pulses peripherally abd: non-distended ext: no cyanosis, clubbing, or edema psych: restricted affect Objective Data Current Medications Generic Name Dose Route Start Last Admin Trade Name Freq PRN Reason Stop Dose Admin Acetaminophen 650 mg 07/06/20 01:54 Acetaminophen 325 Mg Tablet PO Q6H PRN Pain, Mild (Pain Scale 1-3) Atenolol 100 mg 07/06/20 09:00 07/07/20 09:02 Atenolol 100 Mg Tablet PO Not Given DAILY [facility] Protocol Docusate Sodium 100 mg 07/06/20 01:54 Docusate Sodium 100 Mg Capsule PO DAILY PRN Constipation Fluticasone/Vilanterol 1 puff 07/06/20 08:00 07/07/20 07:42 Fluticasone/Vilanterol 100/25 Blst.W.Dev INHALE Not Given RDAILY [facility] Heparin Sodium (Porcine) 5,000 unit 07/06/20 06:00 07/07/20 06:02 Heparin Sodium,Porcine 5,000 Unit/Ml Vial SUBCUT 5,000 unit Q12H RASHI Administration Hydralazine HCl 25 mg 07/06/20 09:00 07/07/20 09:02 Hydralazine Hcl 25 Mg Tablet PO Not Given BID [facility] Protocol Insulin Human Lispro 0 unit 07/06/20 07:30 07/07/20 08:32 Insulin Lispro 100 Unit/Ml 3 Ml Vial SUBCUT Not Given QIDACHS [facility] Protocol Olanzapine 5 mg 07/07/20 21:00 Olanzapine 5 Mg Tablet PO BEDTIME RASHI Ondansetron HCl 4 mg 07/06/20 01:54 Ondansetron Hcl 4 Mg/2 Ml Vial IVPUSH Q8H PRN Nausea and Vomiting Pravastatin Sodium 20 mg 07/06/20 21:00 07/06/20 21:36 Pravastatin Sodium 20 Mg Tablet PO 20 mg BEDTIME RASHI Administration Prednisone 10 mg 07/07/20 09:00 07/07/20 09:02 Prednisone 10 Mg Tablet PO 07/09/20 09:01 Not Given DAILY RASHI Sodium Chloride 3 ml 07/06/20 01:54 07/07/20 09:02 0.9 % Sodium Chloride Flush 3 Ml Syringe IVFLUSH 3 ml QSHIFT RASHI Administration Venlafaxine HCl 75 mg 07/06/20 09:00 07/07/20 09:03 Venlafaxine Hcl Er 75 Mg Cap.Er.24h PO Not Given DAILY [facility] Venlafaxine HCl 150 mg 07/06/20 09:00 07/07/20 09:03 Venlafaxine Hcl Er 150 Mg Cap.Er.24h PO Not Given DAILY [facility] Labs CBC & Chem 7: 07/07/20 05:49 07/07/20 05:49 Labs: Laboratory Results - last 24 hr 07/06/20 07/06/20 07/07/20 15:37 20:08 05:49 WBC 11.8 H RBC 4.32 L Hgb 12.9 L Hct 38.2 L MCV 88.4 MCH 29.9 MCHC 33.8 RDW 13.6 Plt Count 155 L MPV 8.9 L Immature Gran % (Auto) 1.4 H Neut % (Auto) 75.0 H Lymph % (Auto) 14.2 L [place] % (Auto) 8.4 Eos % (Auto) 0.7 Baso % (Auto) 0.3 Lymph # (Auto) 1.7 [place] # (Auto) 1.0 Eos # (Auto) 0.1 Baso # (Auto) 0.0 Abs Immat Gran (auto) 0.16 H Absolute Neuts (auto) 8.9 H Absolute Nucleated RBC 0.000 Nucleated RBC % (auto) 0.0 Sodium Potassium Chloride Carbon Dioxide Anion Gap BUN Creatinine Estim Creat Clear Calc Estimated GFR POC Glucose 217 H 221 H Random Glucose Calcium Total Bilirubin AST ALT Alkaline Phosphatase Lactate Dehydrogenase C-Reactive Protein Total Protein Albumin Procalcitonin 07/07/20 07/07/20 07/07/20 05:49 05:49 07:36 WBC RBC Hgb Hct MCV MCH MCHC RDW Plt Count MPV Immature Gran % (Auto) Neut % (Auto) Lymph % (Auto) [place] % (Auto) Eos % (Auto) Baso % (Auto) Lymph # (Auto) [place] # (Auto) Eos # (Auto) Baso # (Auto) Abs Immat Gran (auto) Absolute Neuts (auto) Absolute Nucleated RBC Nucleated RBC % (auto) Sodium 134 L Potassium 4.8 D Chloride 99 Carbon Dioxide 27 Anion Gap 13 BUN 25 H Creatinine 0.89 Estim Creat Clear Calc 76.3 Estimated GFR > 60 POC Glucose 120 H Random Glucose 117 H Calcium 7.7 L Total Bilirubin 0.4 AST 13 ALT 18 Alkaline Phosphatase 87 Lactate Dehydrogenase 261 C-Reactive Protein 0.96 H Total Protein 5.3 L Albumin 2.9 L Procalcitonin 0.02 Microbiology Microbiology Results: Microbiology 07/06/20 05:54 Blood - Venous Blood Culture - Preliminary No growth after 24 hours. 07/06/20 05:52 Blood - Venous Blood Culture - Preliminary No growth after 24 hours. 07/05/20 21:54 Blood - Venous Blood Culture - Preliminary No growth after 24 hours. 07/05/20 19:51 Blood - Venous Blood Culture - Preliminary No growth after 24 hours. 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 [[facility] [place] who tested positive for COVID-19 06/27/20 and was called in due to 2/2 BCx positive for GPCs but which returned as contaminant [coagulase-negative Staphylococcus] # COVID-19 PNA - not hypoxic. no remdesivir per ID. on prednisone for prior COPD exacerbation- tapering over next 3d # bacteremia - not, d/c'ed vancomycin # severe depression - continue venlafaxine, resume olanzapine [start at 5 mg], consult psychiatry # COPD exacerbation [prior diagnosis] - taper prednisone, continue LABA/ICS, prn TAMIE # HTN - continue atenolol, hydralazine # DM2 - correction-dose lispro # HLD - continue statin # VTE ppx - LMWH
[2020-07-07 11:45] LABS: Glucose, Whole Blood 158 mg/dL (60-115)
[2020-07-07 11:56] LABS: Estimated Average Glucose 217 mg/dL; Hemoglobin A1c % 9.2 %
[2020-07-07 12:00] VITALS: BP 128/75; PULSE 68; RESP 18; TEMP 36.6; O2SAT 97
--- NOTE | 2020-07-07 14:41 | PM.PSYCN ---
History of Present Illness Chief Complaint: covid+ abnormal labs/BACTEREMIA Reason for Consult: Olanzapine titration Requesting physician: Kassi Smallwood Discussed with referring provider: Yes (cortext with Dr. Smallwood and Lisbet Garcia CHEMISTRY QUALITY CONTROL ANALYST) Sources of Information: chart reviewed Additional Sources of Information: pt's , [place] [phone],[facility] [phone], [facility] [phone]- unable to locate information, [facility], [place] [phone] HPI Narrative: 64 yo male, COVID + with Bacteremia. Team is attempting to re-titrate Olanzapine. Pt is refusing meds, food with a profound mood change since admission 2019 per who reports pt has been taking Olanzapine 20 mg for over twenty years. states when pt was admitted in 2019 they were for safety due to COVID and she believes Olanzapine was not continued at that time. Pt has since attended two rehabilitation centers without the Olanzapine and she believes mood/behavior changes are due to discontinuation. She reports pt's mental status was not clear with both rehab admissions. As a result, when pt was at home, did not continue Olanzapine as it was not listed on medication summary. expresses much concern and asks that she be called prior to any discharge plans being made. She is concerned that he will not eat and suggests scrambled eggs and DrIvette Calderon as two of his favorite foods. Collateral Contacts: PCP team Kayy Pabon- Olanzapine 20 mg daily since 01/2018, Venlafaxine 75 mg daily, Lorazepam 0.5 mg bid prn. Diagnoses Depression , Anxiety. Past Psychiatric History: Several years of psychotropic medication use-Venlafaxine/Olanzapine Medical Evaluation Reviewed: Yes Personal & Social History: , one son Review of Systems Constitutional: Reports weakness Reports system reviewed and no additional complaints, except as documented, Reports as per HPI and Reports weakness [facility] Medical History COPD (chronic obstructive pulmonary disease) CVA (cerebral vascular accident) Diabetes mellitus type 1 Dizziness Hypertension Surgical History History of percutaneous coronary intervention Family History: no Social History: , one son, worked with [employer] team for 17 years, several positions Substance History: No alcohol or nicotine in 3 years Trauma History: loss of his mother Diagnostics Vital Signs (24Hr): Vital Signs - 24 hr 07/06/20 15:11 07/06/20 19:15 07/06/20 21:37 Temperature 97.8 F 97.8 F Pulse Rate 67 65 62 Respiratory Rate 18 18 Blood Pressure 157/74 H 164/74 H 149/75 H Pulse Oximetry 96 96 07/06/20 23:39 07/07/20 03:28 07/07/20 08:00 Temperature 96.8 F 97.1 F 97.5 F Pulse Rate 67 70 69 Respiratory Rate 18 18 18 Blood Pressure 152/73 H 133/70 126/61 Pulse Oximetry 92 96 96 07/07/20 12:00 Temperature 98 F Pulse Rate 68 Respiratory Rate 18 Blood Pressure 128/75 Pulse Oximetry 97 Body Mass Index 23.6 Labs Results: 07/07/20 05:49 07/07/20 05:49 Labs: Laboratory Results - last 48 hr 07/05/20 07/05/20 07/05/20 19:49 19:49 19:49 WBC 9.9 RBC 4.41 L Hgb 12.9 L Hct 38.2 L MCV 86.6 MCH 29.3 MCHC 33.8 RDW 13.4 Plt Count 141 L MPV 8.6 L Immature Gran % (Auto) 1.1 H Neut % (Auto) 81.1 H Lymph % (Auto) 11.0 L Page % (Auto) 6.6 Eos % (Auto) 0.1 Baso % (Auto) 0.1 Lymph # (Auto) 1.1 L Page # (Auto) 0.7 Eos # (Auto) 0.0 Baso # (Auto) 0.0 Abs Immat Gran (auto) 0.11 H Absolute Neuts (auto) 8.0 Absolute Nucleated RBC 0.000 Nucleated RBC % (auto) 0.0 PT 11.9 INR 1.0 APTT 27.7 Sodium 132 L Potassium 4.5 Chloride 98 Carbon Dioxide 25 Anion Gap 14 BUN 27 H Creatinine 0.98 Estim Creat Clear Calc 69.3 Estimated GFR > 60 POC Glucose Random Glucose 211 H Estimat Average Glucose Hemoglobin A1c % Lactic Acid Calcium 7.6 L Ferritin Total Bilirubin 0.5 Direct Bilirubin AST 15 ALT 17 Alkaline Phosphatase 90 Lactate Dehydrogenase C-Reactive Protein Total Protein 5.5 L Albumin 3.0 L Procalcitonin Urine Color Urine Appearance Urine pH Ur Specific [place] Urine Protein Urine Glucose (UA) Urine Ketones Urine Blood Urine Nitrite Ur Leukocyte Esterase Urine RBC Urine WBC Ur Squamous Epith Cells Urine Bacteria 07/05/20 07/05/20 07/05/20 19:49 19:49 19:50 WBC RBC Hgb Hct MCV MCH MCHC RDW Plt Count MPV Immature Gran % (Auto) Neut % (Auto) Lymph % (Auto) Page % (Auto) Eos % (Auto) Baso % (Auto) Lymph # (Auto) Page # (Auto) Eos # (Auto) Baso # (Auto) Abs Immat Gran (auto) Absolute Neuts (auto) Absolute Nucleated RBC Nucleated RBC % (auto) PT INR APTT Sodium Potassium Chloride Carbon Dioxide Anion Gap BUN Creatinine Estim Creat Clear Calc Estimated GFR POC Glucose Random Glucose Estimat Average Glucose Hemoglobin A1c % Lactic Acid 1.0 Calcium Ferritin 1444 H Total Bilirubin 0.5 Direct Bilirubin 0.3 AST 14 ALT 17 Alkaline Phosphatase 90 Lactate Dehydrogenase 268 C-Reactive Protein Total Protein 5.5 L Albumin 3.0 L Procalcitonin 0.04 Urine Color Urine Appearance Urine pH Ur Specific [place] Urine Protein Urine Glucose (UA) Urine Ketones Urine Blood Urine Nitrite Ur Leukocyte Esterase Urine RBC Urine WBC Ur Squamous Epith Cells Urine Bacteria 07/06/20 07/06/20 07/06/20 02:06 05:54 05:54 WBC 10.6 RBC 4.31 L Hgb 12.6 L Hct 37.6 L MCV 87.2 MCH 29.2 MCHC 33.5 RDW 13.5 Plt Count 146 L MPV 8.9 L Immature Gran % (Auto) 1.0 H Neut % (Auto) 73.0 Lymph % (Auto) 16.1 L Page % (Auto) 8.8 Eos % (Auto) 0.8 Baso % (Auto) 0.3 Lymph # (Auto) 1.7 Page # (Auto) 0.9 Eos # (Auto) 0.1 Baso # (Auto) 0.0 Abs Immat Gran (auto) 0.11 H Absolute Neuts (auto) 7.7 Absolute Nucleated RBC 0.000 Nucleated RBC % (auto) 0.0 PT INR APTT Sodium 133 L Potassium 3.8 Chloride 100 Carbon Dioxide 23 Anion Gap 14 BUN 25 H Creatinine 0.85 Estim Creat Clear Calc 79.9 Estimated GFR > 60 POC Glucose 124 H Random Glucose 117 H D Estimat Average Glucose Hemoglobin A1c % Lactic Acid Calcium 7.7 L Ferritin Total Bilirubin Direct Bilirubin AST ALT Alkaline Phosphatase Lactate Dehydrogenase C-Reactive Protein Total Protein Albumin Procalcitonin Urine Color Urine Appearance Urine pH Ur Specific [place] Urine Protein Urine Glucose (UA) Urine Ketones Urine Blood Urine Nitrite Ur Leukocyte Esterase Urine RBC Urine WBC Ur Squamous Epith Cells Urine Bacteria 07/06/20 07/06/20 07/06/20 06:27 07:40 11:01 WBC RBC Hgb Hct MCV MCH MCHC RDW Plt Count MPV Immature Gran % (Auto) Neut % (Auto) Lymph % (Auto) Page % (Auto) Eos % (Auto) Baso % (Auto) Lymph # (Auto) Page # (Auto) Eos # (Auto) Baso # (Auto) Abs Immat Gran (auto) Absolute Neuts (auto) Absolute Nucleated RBC Nucleated RBC % (auto) PT INR APTT Sodium Potassium Chloride Carbon Dioxide Anion Gap BUN Creatinine Estim Creat Clear Calc Estimated GFR POC Glucose 122 H 161 H Random Glucose Estimat Average Glucose Hemoglobin A1c % Lactic Acid Calcium Ferritin Total Bilirubin Direct Bilirubin AST ALT Alkaline Phosphatase Lactate Dehydrogenase C-Reactive Protein Total Protein Albumin Procalcitonin Urine Color YELLOW Urine Appearance CLEAR Urine pH 6.0 Ur Specific [place] >= 1.030 H Urine Protein 2+ H Urine Glucose (UA) 250 H Urine Ketones 15 Urine Blood NEG Urine Nitrite NEG Ur Leukocyte Esterase NEG Urine RBC 0 Urine WBC 0-2 Ur Squamous Epith Cells TRACE Urine Bacteria NONE 07/06/20 07/06/20 07/07/20 15:37 20:08 05:49 WBC 11.8 H RBC 4.32 L Hgb 12.9 L Hct 38.2 L MCV 88.4 MCH 29.9 MCHC 33.8 RDW 13.6 Plt Count 155 L MPV 8.9 L Immature Gran % (Auto) 1.4 H Neut % (Auto) 75.0 H Lymph % (Auto) 14.2 L Page % (Auto) 8.4 Eos % (Auto) 0.7 Baso % (Auto) 0.3 Lymph # (Auto) 1.7 Page # (Auto) 1.0 Eos # (Auto) 0.1 Baso # (Auto) 0.0 Abs Immat Gran (auto) 0.16 H Absolute Neuts (auto) 8.9 H Absolute Nucleated RBC 0.000 Nucleated RBC % (auto) 0.0 PT INR APTT Sodium Potassium Chloride Carbon Dioxide Anion Gap BUN Creatinine Estim Creat Clear Calc Estimated GFR POC Glucose 217 H 221 H Random Glucose Estimat Average Glucose Hemoglobin A1c % Lactic Acid Calcium Ferritin Total Bilirubin Direct Bilirubin AST ALT Alkaline Phosphatase Lactate Dehydrogenase C-Reactive Protein Total Protein Albumin Procalcitonin Urine Color Urine Appearance Urine pH Ur Specific [place] Urine Protein Urine Glucose (UA) Urine Ketones Urine Blood Urine Nitrite Ur Leukocyte Esterase Urine RBC Urine WBC Ur Squamous Epith Cells Urine Bacteria 07/07/20 07/07/20 07/07/20 05:49 05:49 05:49 WBC RBC Hgb Hct MCV MCH MCHC RDW Plt Count MPV Immature Gran % (Auto) Neut % (Auto) Lymph % (Auto) Page % (Auto) Eos % (Auto) Baso % (Auto) Lymph # (Auto) Page # (Auto) Eos # (Auto) Baso # (Auto) Abs Immat Gran (auto) Absolute Neuts (auto) Absolute Nucleated RBC Nucleated RBC % (auto) PT INR APTT Sodium 134 L Potassium 4.8 D Chloride 99 Carbon Dioxide 27 Anion Gap 13 BUN 25 H Creatinine 0.89 Estim Creat Clear Calc 76.3 Estimated GFR > 60 POC Glucose Random Glucose 117 H Estimat Average Glucose 217 Hemoglobin A1c % 9.2 Lactic Acid Calcium 7.7 L Ferritin Total Bilirubin 0.4 Direct Bilirubin AST 13 ALT 18 Alkaline Phosphatase 87 Lactate Dehydrogenase 261 C-Reactive Protein 0.96 H Total Protein 5.3 L Albumin 2.9 L Procalcitonin 0.02 Urine Color Urine Appearance Urine pH Ur Specific [place] Urine Protein Urine Glucose (UA) Urine Ketones Urine Blood Urine Nitrite Ur Leukocyte Esterase Urine RBC Urine WBC Ur Squamous Epith Cells Urine Bacteria 07/07/20 07/07/20 07:36 11:20 WBC RBC Hgb Hct MCV MCH MCHC RDW Plt Count MPV Immature Gran % (Auto) Neut % (Auto) Lymph % (Auto) Page % (Auto) Eos % (Auto) Baso % (Auto) Lymph # (Auto) Page # (Auto) Eos # (Auto) Baso # (Auto) Abs Immat Gran (auto) Absolute Neuts (auto) Absolute Nucleated RBC Nucleated RBC % (auto) PT INR APTT Sodium Potassium Chloride Carbon Dioxide Anion Gap BUN Creatinine Estim Creat Clear Calc Estimated GFR POC Glucose 120 H 158 H Random Glucose Estimat Average Glucose Hemoglobin A1c % Lactic Acid Calcium Ferritin Total Bilirubin Direct Bilirubin AST ALT Alkaline Phosphatase Lactate Dehydrogenase C-Reactive Protein Total Protein Albumin Procalcitonin Urine Color Urine Appearance Urine pH Ur Specific [place] Urine Protein Urine Glucose (UA) Urine Ketones Urine Blood Urine Nitrite Ur Leukocyte Esterase Urine RBC Urine WBC Ur Squamous Epith Cells Urine Bacteria Imaging Radiology Impressions: ITS Impressions Venous Duplex 07/06/20 00:00 IMPRESSION: No DVT demonstrated in the bilateral lower extremity. Medications Medications Current Medications Generic Name Dose Route Start Last Admin Trade Name Freq PRN Reason Stop Dose Admin Acetaminophen 650 mg 07/06/20 01:54 Acetaminophen 325 Mg Tablet PO Q6H PRN Pain, Mild (Pain Scale 1-3) Atenolol 100 mg 07/06/20 09:00 07/07/20 09:02 Atenolol 100 Mg Tablet PO Not Given DAILY [facility] Protocol Docusate Sodium 100 mg 07/06/20 01:54 Docusate Sodium 100 Mg Capsule PO DAILY PRN Constipation Fluticasone/Vilanterol 1 puff 07/06/20 08:00 07/07/20 07:42 Fluticasone/Vilanterol 100/25 Blst.W.Dev INHALE Not Given RDAILY [facility] Heparin Sodium (Porcine) 5,000 unit 07/06/20 06:00 07/07/20 06:02 Heparin Sodium,Porcine 5,000 Unit/Ml Vial SUBCUT 5,000 unit Q12H RASHI Administration Hydralazine HCl 25 mg 07/06/20 09:00 07/07/20 09:02 Hydralazine Hcl 25 Mg Tablet PO Not Given BID [facility] Protocol Insulin Human Lispro 0 unit 07/06/20 07:30 07/07/20 11:45 Insulin Lispro 100 Unit/Ml 3 Ml Vial SUBCUT Not Given QIDACHS [facility] Protocol Olanzapine 5 mg 07/07/20 21:00 Olanzapine 5 Mg Tablet PO BEDTIME RASHI Ondansetron HCl 4 mg 07/06/20 01:54 Ondansetron Hcl 4 Mg/2 Ml Vial IVPUSH Q8H PRN Nausea and Vomiting Pravastatin Sodium 20 mg 07/06/20 21:00 07/06/20 21:36 Pravastatin Sodium 20 Mg Tablet PO 20 mg BEDTIME RASHI Administration Prednisone 10 mg 07/07/20 09:00 07/07/20 09:02 Prednisone 10 Mg Tablet PO 07/09/20 09:01 Not Given DAILY RASHI Sodium Chloride 3 ml 07/06/20 01:54 07/07/20 09:02 0.9 % Sodium Chloride Flush 3 Ml Syringe IVFLUSH 3 ml QSHIFT RASHI Administration Venlafaxine HCl 75 mg 07/06/20 09:00 07/07/20 09:03 Venlafaxine Hcl Er 75 Mg Cap.Er.24h PO Not Given DAILY RASHI Venlafaxine HCl 150 mg 07/06/20 09:00 07/07/20 09:03 Venlafaxine Hcl Er 150 Mg Cap.Er.24h PO Not Given DAILY RASHI Allergies Allergies Allergy/AdvReac Type Severity Reaction Status Date / Time No Known Allergies Allergy Unknown NKA Verified 07/05/20 17:17 Assessment & Plan Greater than 50% of the session was spent on counseling and/or coordination of care Patient educated on: medication risk/benefits (Suggest Olanzapine ODT or IM initially. As pt has been off this medicine for ~ 30 days with co-morbidities, suggest in pt psych admit to re-establish baseline.) Guardian/Caregiver educated on: diagnosis, medication risk/benefits and therapeutic strategies Informed Consent: understands
[2020-07-07 15:06] VITALS: BP 114/63; PULSE 69; RESP 19; TEMP 36; O2SAT 97
[2020-07-07 15:42] LABS: Vancomycin Trough 3.9 mcg/mL (10.0-20.0)
[2020-07-07 16:29] LABS: COVID-19 Test Negative (Negative); IDNOW Serial# 9DD0AD1C
[2020-07-07 16:33] LABS: Glucose, Whole Blood 191 mg/dL (60-115)
[2020-07-07] MEDS: Insulin Lispro 100 UNIT/ML 3 ML VIAL SUBCUT (17:11)
[2020-07-07 19:18] VITALS: BP 147/79; PULSE 73; RESP 19; TEMP 36.7; O2SAT 96
[2020-07-07 20:09] LABS: Glucose, Whole Blood 154 mg/dL (60-115)
--- NOTE | 2020-07-07 22:20 | PC.NURSE ---
PATIENT REFUSING CARE- WOULD NOT TAKE NIGHTTIME MEDICATIONS OR EVEN ALLOW THIS RN TO LISTEN TO HIS LUNGS. HE DOESN'T APPEAR IN ANY ACUTE DISTRESS. HE'S RESTING COMFORTABLY AT THIS TIME. WILL CONTINUE TO MONITOR.
[2020-07-08] VITALS (8 sets, daily range): BP systolic 96–151; BP diastolic 53–81; PULSE 71–87; RESP 16–18; TEMP 35.9–36.4; O2SAT 95–97
--- NOTE | 2020-07-08 | ECG_ITS ---
Test Reason : restarting Zyprexa, check QTc Blood Pressure : / mmHG Vent. Rate : 081 BPM Atrial Rate : 081 BPM P-R Int : 132 ms QRS Dur : 132 ms QT Int : 420 ms P-R-T Axes : 062 075 017 degrees QTc Int : 487 ms Normal sinus rhythm Right bundle branch block T wave abnormality, consider lateral ischemia Abnormal ECG Heart rate has increased T wave inversion now evident in Lateral leads Referred By: Kassi Smallwood Electronically Signed By:DIANNE RDZ MD
[2020-07-08 07:50] LABS: Glucose, Whole Blood 146 mg/dL (60-115)
--- NOTE | 2020-07-08 10:23 | MHC.CM.PN ---
DP pt asked to be left alone. Called spouse,for suggestions. Dr Calderon brought to room. Patient states that he wants to be left alone. Will attempt to meet with Pt later this afternoon. [facility] bed search will be DISPO. Neg Covid X1. A second test performed today. Results will be available this afternoon. CM will follow.
--- NOTE | 2020-07-08 11:00 | CA_ITS ---
Transthoracic Echocardiogram Patient (Last, First, Middle): Salvatore Hollingsworth R Gender: Male Date of : 1955 Age: 64 Procedure Date: 07/08/2020 Procedure Type: Transthoracic E[place] [facility] [place]: 170.18 cm Weight: 68.04 kg BSA: 1.79 m2 Heart Rate: bpm BP: 170 / 81 mmHg Spool Hauler: Miller MD: Kassi Smallwood MD Shingler: Tim Britton MD Symptoms: GPC bacteremia. COVID POSITIVE Study Quality: Technically Difficult ECG Rhythm: Sinus Conclusions: - 1. Technically limited study and the valve cannot be well visualized. Vegetation cannot be entirely ruled out on this study 2. Normal LV systolic function with impaired relaxation filling pattern 3. Limited evaluation of valves with normal cardiac valvular Doppler 4. No gross pericardial effusion Findings Procedure Information Contrast agent, definity, is being given per protocol without apparent complications. Left Ventricle Normal left ventricular cavity size. The left ventricular systolic function is normal. The visually estimated ejection fraction is between 60-65%. Spectral Doppler is indicative of an impaired relaxation filling pattern. E/E prime ratio is <8, consistent with normal filling pressures. Evidence suggests grade I (mild) diastolic dysfunction. Right Ventricle The right ventricle was not well visualized. Atria The left atrium is normal in size. Interatrial shunt cannot be excluded. The right atrium is normal in size. Aortic Valve There is mild calcification of the aortic valve. There is moderate thickening of the aortic valve. There is no aortic valve stenosis. There is no aortic valve regurgitation. The non coronary cusp is most thickened, however there is no clear mobile mass that would represent a vegetation. However this cannot be entirely ruled out Mitral Valve The mitral valve was not well visualized. There is trace mitral valve regurgitation. There is no mitral valve stenosis. Pulmonic Valve The pulmonic valve was not well visualized. Tricuspid Valve The tricuspid valve was not well visualized. Tricuspid regurgitation envelope is inadequate for calculation of right ventricular systolic pressure. Great Vessels The aorta was not well visualized. The pulmonary artery was not well visualized. Venous The inferior vena cava is normal in size and collapses greater than 50% with inspiration. Pericardium/Pleural There is no evidence of pericardial effusion. Prior Study Comparison No significant change compared to prior study dated: 02/06/2017. Measurements 2D Linear Measurements LVIDd: 3.41 3.9-5.3/4.2-5.9 cm LVIDs: 2.38 2.0-3.6 cm Ao Root: 3.10 2.1-3.5 cm LA Diam: 3.00 2.7-3.8/3.0-4.0 cm LVOT Diam: 2.00 3.0+(-)1.3 cm 2D Systolic Function EF 4C: 62.10 >55% EF 2C: 54.80 >55% EF BiP: 56.80 >55% Mitral Valve MV Pk E: 0.36 MV PK A: 0.70 MV Decel Time: 242.00 E/A: 0.50 E'Lateral: 5.66 E'Medial: 4.03 E/E' Med: 9.00 E/E' Lat: 6.40 PHT: 71.00 MVA PHT: 3.10 Decel Walker: 1.49 Aortic Valve AoV Pk Ilya: 1.28 AoV Mn Ilya: 0.86 AoV VTI: 0.20 AoV Pk Grad: 7.00 Aov Mn Grad: 3.00 TRAVIS Cont.VTI: 2.47 LVOT LVOT Pk Ilya: 1.06 LVOT Mn Ilya: 0.60 LVOT VTI: 0.16 LVOT Pk Grad: 4.00 LVOT Mn Grad: 2.00 LVOT Diam: 2.00 LVOT Area: 3.14 Diastolic Function MV Pk E: 0.36 MV Pk A: 0.70 E/A: 0.50 E'Medial: 4.03 E/E' Med: 9.00 E' Laterial: 5.66 E/E' Lat: 6.40 Tricuspid Valve RA Press: 3.00 Great Vessels Aorta Ao Root-2D: 3.10 2.0-3.7 cm Ao Asc: 2.80 2.1-3.4 cm Updated in Other Vendor System with Status of Final Tim Britton MD electronically signed on 07/08/2020 3:35:50 PM with status of Final
--- NOTE | 2020-07-08 11:03 | PC.NURSE ---
PATIENT REFUSING ALL MEDS AND CARE THIS AM. PATIENT EDUCATED ON SAFETY MEASURES. WILL CONTINUE TO MONITOR.
--- NOTE | 2020-07-08 11:34 | MHC.CARE ---
[facility] psych unit reviewed records and decided they will be taking patient from their ED for the available beds they have.
--- NOTE | 2020-07-08 11:34 | MHC.CARE ---
CARE Team faxed patients assessment and records to other facilities for [facility] bed search, awaiting response.
--- NOTE | 2020-07-08 11:39 | HO.PM.IMPN ---
Subjective Subjective Date of Service: 07/08/20 Interval History: Refusing food and medications including Zyprexa. States repeatedly leave me alone . Per his this is NOT his baseline. Does not cooperate with ROS but no fever or tachypnea noted. Physical Exam Vital Signs: Vital Signs: Last Vital Signs Temp 96.6 F L 07/08/20 11:14 Pulse 87 07/08/20 11:14 Resp 18 07/08/20 11:14 BP 129/65 07/08/20 11:14 Pulse Ox 95 07/08/20 11:14 Body Mass Index 23.6 gen: restricted affect, uncooperative lungs: auscultation deferred due to COVID-19. no resp distress CV: regular pulses peripherally abd: non-distended ext: no cyanosis, clubbing, or edema psych: restricted affect Objective Data Current Medications Generic Name Dose Route Start Last Admin Trade Name Freq PRN Reason Stop Dose Admin Acetaminophen 650 mg 07/06/20 01:54 Acetaminophen 325 Mg Tablet PO Q6H PRN Pain, Mild (Pain Scale 1-3) Atenolol 100 mg 07/06/20 09:00 07/08/20 08:42 Atenolol 100 Mg Tablet PO Not Given DAILY [facility] Protocol Docusate Sodium 100 mg 07/06/20 01:54 Docusate Sodium 100 Mg Capsule PO DAILY PRN Constipation Fluticasone/Vilanterol 1 puff 07/06/20 08:00 07/08/20 08:41 Fluticasone/Vilanterol 100/25 Blst.W.Dev INHALE Not Given RDAILY [facility] Heparin Sodium (Porcine) 5,000 unit 07/06/20 06:00 07/08/20 05:05 Heparin Sodium,Porcine 5,000 Unit/Ml Vial SUBCUT Not Given Q12H [facility] Hydralazine HCl 25 mg 07/06/20 09:00 07/08/20 08:42 Hydralazine Hcl 25 Mg Tablet PO Not Given BID [facility] Protocol Insulin Human Lispro 0 unit 07/06/20 07:30 07/08/20 08:23 Insulin Lispro 100 Unit/Ml 3 Ml Vial SUBCUT Not Given QIDACHS [facility] Protocol Olanzapine 10 mg 07/08/20 21:00 Olanzapine Odt 10 Mg Tab.Rapdis TRANSLINGU BEDTIME [facility] Ondansetron HCl 4 mg 07/06/20 01:54 Ondansetron Hcl 4 Mg/2 Ml Vial IVPUSH Q8H PRN Nausea and Vomiting Pravastatin Sodium 20 mg 07/06/20 21:00 07/07/20 20:25 Pravastatin Sodium 20 Mg Tablet PO Not Given BEDTIME [facility] Prednisone 10 mg 07/07/20 09:00 07/08/20 08:42 Prednisone 10 Mg Tablet PO 07/09/20 09:01 Not Given DAILY [facility] Sodium Chloride 3 ml 07/06/20 01:54 07/08/20 08:42 0.9 % Sodium Chloride Flush 3 Ml Syringe IVFLUSH Not Given QSHIFT [facility] Venlafaxine HCl 75 mg 07/06/20 09:00 07/08/20 08:42 Venlafaxine Hcl Er 75 Mg Cap.Er.24h PO Not Given DAILY [facility] Venlafaxine HCl 150 mg 07/06/20 09:00 07/08/20 08:42 Venlafaxine Hcl Er 150 Mg Cap.Er.24h PO Not Given DAILY [facility] Labs CBC & Chem 7: 07/07/20 05:49 07/07/20 05:49 Labs: Laboratory Results - last 24 hr 07/07/20 07/07/20 07/07/20 05:49 11:20 14:57 POC Glucose 158 H Estimat Average Glucose 217 Hemoglobin A1c % 9.2 Vancomycin Trough 3.9 L COVID-19 ([facility]) COVID-19 Clin Com 07/07/20 07/07/20 07/07/20 15:59 16:16 20:00 POC Glucose 191 H 154 H Estimat Average Glucose Hemoglobin A1c % Vancomycin Trough COVID-19 ([facility]) Negative COVID-19 Clin Com See Note 07/08/20 07:39 POC Glucose 146 H Estimat Average Glucose Hemoglobin A1c % Vancomycin Trough COVID-19 ([facility]) COVID-19 Clin Com ITS Impressions Venous Duplex 07/06/20 00:00 IMPRESSION: No DVT demonstrated in the bilateral lower extremity. Microbiology Microbiology Results: Microbiology 07/06/20 05:54 Blood - Venous Blood Culture - Preliminary No growth after 48 hours. 07/06/20 05:52 Blood - Venous Blood Culture - Preliminary No growth after 48 hours. 07/05/20 21:54 Blood - Venous Blood Culture - Preliminary No growth after 48 hours. 07/05/20 19:51 Blood - Venous Blood Culture - Preliminary No growth after 48 hours. 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 Consider recheck leg u/s evaluate clot and echo evaluate ejection fraction if not done last two weeks Status: Acute (2) Blood bacterial culture positive: Problem details: The blood cultures appear to be contaminant He has no lines in place or infected prosthesis Status: Acute Assessment and Plan: hospital d#4 64yo M with COPD undergoing STR at [facility]] who tested positive for COVID-19 06/27/20 and was called in due to 09/27 BCx positive for GPCs but which returned as contaminant [coagulase-negative Staphylococcus] severe depression with refusal to take medications or food # severe, resistant depression - Psychiatry consulted and recommends inpatient psychiatry placement for resumption/titration of olanzapine, which he was on previously but for unknown reasons was stopped in mid-May. check QTc if pt cooperates. also supposed to be on venlafaxine. # COVID-19 PNA [previously diagnosed 06/27/20] - not hypoxic. no remdesivir per ID. prednisone taper for COPD exacerbation to finish tomorrow - will pursue test-based strategy to d/c isolation precautions; yesterday's SARS-CoV2 PCR negative, will recheck again today # bacteremia - not, d/c'ed vancomycin # COPD exacerbation [prior diagnosis] - taper prednisone, continue LABA/ICS, prn TAMIE # HTN - continue atenolol, hydralazine # DM2 - correction-dose lispro # HLD - continue statin # VTE ppx - LMWH # dispo - [facility]-psych placement
[2020-07-08 11:41] LABS: Glucose, Whole Blood 181 mg/dL (60-115)
[2020-07-08] MEDS: Insulin Lispro 100 UNIT/ML 3 ML VIAL SUBCUT ×2 (12:04→16:58)
--- NOTE | 2020-07-08 13:52 | MHC.CM.PN ---
Met with Patient in room. He did not make eye contact. I stated my name and purpose. He was agitated and rolling his eyes. [facility] He said that he does not want to go. Pt preference is home. I spoke with his . She Stated that if he took his medication, and gained strength at rehab, He can come home. He yelled give it to me then! Nurse notified Patient willing to take Zyprexa. CM will follow.
--- NOTE | 2020-07-08 16:11 | MHC.CARE ---
Geriatric bed search exhausted for the day.
--- NOTE | 2020-07-08 16:13 | MHC.CARE ---
CARE Team spoke with Case Manger Director. CARE Team and Case Management will simultaneously working on appropriate placements for Pt. Pt has been re-started on medication that had been stabilizing in the past.
[2020-07-08 16:33] LABS: Glucose, Whole Blood 171 mg/dL (60-115)
[2020-07-08 16:48] LABS: COVID-19 Test Negative (Negative); IDNOW Serial# 9DD0AD1C
[2020-07-08] MEDS: 0.9 % Sodium Chloride Flush 3 ML SYRINGE IVFLUSH ×2 (16:58→20:45)
[2020-07-08] MEDS: Heparin Sodium,Porcine 5,000 UNIT/ML VIAL 5000 UNIT SUBCUT (16:58)
[2020-07-08] MEDS: Aspirin Enteric Coated 81 MG TABLET.DR PO (17:46)
[2020-07-08] MEDS: Atorvastatin Calcium 80 MG TABLET PO (17:54)
--- NOTE | 2020-07-08 17:57 | PC.NURSE ---
PATIENT EKG DONE TO CHECK QTC LVL AND SENT TO MD. PATIENT EKG SHOWING ST DEPRESSION WITH T WAVE ABNORMALITY CONSIDERING ISCHEMIA. DR. BRIONES MADE AWARE AND PATIENT ASYMPTOMATIC WITH NO PAIN. PATIENT RECEIVED ASPIRIN, LIPITOR, PLACED ON TELE MONITOR WITH CARDIOLOGY CONSULT. TROPONIN LABS TO BE DRAWN. WILL CONTINUE TO MONITOR PATIENT AT THIS TIME.
--- NOTE | 2020-07-08 18:00 | MHC.CARE ---
Addendum entered by BETSY Hernandez 07/08/20 18:45: Correction: Patient was initially assessed on 07/07/2020. Original Note: CARE team completed MSU on this patient in [address] who was initially evaluated on 07/08/2020. No change in disposition, diagnosis, or plan. CARE team and case management are working collaboratively to place patient in a contained and stabilizing environement. CARE team updated patient's and nurse on the plan. Will complete 24 hour re-assessment tomorrow if placement is not found.
--- NOTE | 2020-07-08 18:00 | MHC.CARE ---
CARE team completed MSU on this patient in [place] [id number] who was initially evaluated on 07/07/2020. No change in disposition, diagnosis, or plan. CARE team and case management are working collaboratively to place patient in a contained and stabilizing environement. CARE team updated patient's and nurse on the plan. Will complete 24 hour re-assessment tomorrow if placement is not found.
[2020-07-08 20:40] LABS: Glucose, Whole Blood 162 mg/dL (60-115)
[2020-07-08] MEDS: OLANZapine ODT 10 MG TAB.RAPDIS TRANSLINGU (20:45)
[2020-07-08 21:48] LABS: Troponin-I High Sensitivity 36.4 ng/L (<3.5-35.0)
[2020-07-09 03:15] VITALS: BP 110/66; PULSE 82; RESP 20; TEMP 36.4; O2SAT 95
[2020-07-09 03:43] LABS: Troponin-I High Sensitivity 58.2 ng/L (<3.5-35.0)
--- NOTE | 2020-07-09 03:47 | P.EN_ITS ---
Event Note Date of Service: 07/09/20 Event Note: Trops were ordered on this pt due to EKG showing t-wave abnormal ity . Initial trop of 36.4, a rpt trop of 58.2. Pt asymptomatic with no cp, no abnormal vitals Will consult cardiology for further recommendation
[2020-07-09] MEDS: Heparin Sodium,Porcine 5,000 UNIT/ML VIAL 5000 UNIT SUBCUT (05:14)
[2020-07-09] MEDS: Fluticasone/Vilanterol 100/25 BLST.W.DEV 1 PUFF INHALE (07:44)
[2020-07-09] MEDS: predniSONE 10 MG TABLET PO (11:13)
[2020-07-09 11:16] VITALS: BP 128/58; PULSE 83; RESP 18; TEMP 36.3; O2SAT 96
[2020-07-09 12:00] VITALS: PULSE 85
--- NOTE | 2020-07-09 12:21 | P.PNIM_ITS ---
Subjective Subjective Date of Service: 07/09/20 Interval History: EKG done for QT monitoring showed TWIs and ST depressions V3- V5, hsTn-I 36->58 Pt uncooperative with ROS. Leave me alone Physical Exam Vital Signs: Vital Signs: Last Vital Signs Temp 97.3 F 07/09/20 11:16 Pulse 83 07/09/20 11:20 Resp 18 07/09/20 11:16 BP 128/58 L 07/09/20 11:20 Pulse Ox 96 07/09/20 11:16 Body Mass Index 23.6 gen: restricted affect, uncooperative lungs: auscultation deferred due to COVID-19. no resp distress CV: regular pulses peripherally abd: non-distended ext: no cyanosis, clubbing, or edema psych: restricted affect Objective Data Current Medications Generic Name Dose Route Start Last Admin Trade Name Freq PRN Reason Stop Dose Admin Acetaminophen 650 mg 07/06/20 01:54 Acetaminophen 325 Mg Tablet PO Q6H PRN Pain, Mild (Pain Scale 1-3) Atenolol 100 mg 07/06/20 09:00 07/09/20 11:20 Atenolol 100 Mg Tablet PO 100 mg DAILY RASHI Administration Protocol Atorvastatin Calcium 80 mg 07/08/20 18:00 07/08/20 17:54 Atorvastatin Calcium 80 Mg Tablet PO 80 mg BEDTIME RASHI Administration Docusate Sodium 100 mg 07/06/20 01:54 Docusate Sodium 100 Mg Capsule PO DAILY PRN Constipation Fluticasone/Vilanterol 1 puff 07/06/20 08:00 07/09/20 07:44 Fluticasone/Vilanterol 100/25 Blst.W.Dev INHALE 1 puff RDAILY RASHI Administration Heparin Sodium (Porcine) 5,000 unit 07/06/20 06:00 07/09/20 05:14 Heparin Sodium,Porcine 5,000 Unit/Ml Vial SUBCUT 5,000 unit Q12H RASHI Administration Hydralazine HCl 25 mg 07/06/20 09:00 07/09/20 11:18 Hydralazine Hcl 25 Mg Tablet PO 25 mg BID RASHI Administration Protocol Insulin Human Lispro 0 unit 07/06/20 07:30 07/09/20 11:20 Insulin Lispro 100 Unit/Ml 3 Ml Vial SUBCUT Not Given QIDACHS [facility] Protocol Olanzapine 10 mg 07/08/20 21:00 07/08/20 20:45 Olanzapine Odt 10 Mg Tab.Rapdis TRANSLINGU 10 mg BEDTIME RASHI Administration Ondansetron HCl 4 mg 07/06/20 01:54 Ondansetron Hcl 4 Mg/2 Ml Vial IVPUSH Q8H PRN Nausea and Vomiting Sodium Chloride 3 ml 07/06/20 01:54 07/09/20 11:20 0.9 % Sodium Chloride Flush 3 Ml Syringe IVFLUSH Not Given QSHIFT RASHI Venlafaxine HCl 75 mg 07/06/20 09:00 07/09/20 11:13 Venlafaxine Hcl Er 75 Mg Cap.Er.24h PO 75 mg DAILY RASHI Administration Venlafaxine HCl 150 mg 07/06/20 09:00 07/09/20 11:13 Venlafaxine Hcl Er 150 Mg Cap.Er.24h PO 150 mg DAILY RASHI Administration Labs CBC & Chem 7: 07/07/20 05:49 07/07/20 05:49 Labs: Laboratory Results - last 24 hr 07/08/20 07/08/20 07/08/20 16:08 16:23 20:37 POC Glucose 171 H 162 H Troponin I High Sens COVID-19 (REYNALDO) Negative COVID-19 Clin Com See Note 07/08/20 07/09/20 20:51 02:48 POC Glucose Troponin I High Sens 36.4 H 58.2 H D COVID-19 (RE[facility]NALDO) COVID-19 Clin Com TTE 07/08/20 1. Technically limited study and the valve cannot be well visualized. Vegetation cannot be entirely ruled out on this study 2. Normal LV systolic function with impaired relaxation filling pattern 3. Limited evaluation of valves with normal cardiac valvular Doppler 4. No gross pericardial effusion Microbiology Microbiology Results: Microbiology 07/06/20 05:54 Blood - Venous Blood Culture - Preliminary No growth after 48 hours. 07/06/20 05:52 Blood - Venous Blood Culture - Preliminary No growth after 48 hours. 07/05/20 21:54 Blood - Venous Blood Culture - Preliminary No growth after 48 hours. 07/05/20 19:51 Blood - Venous Blood Culture - Preliminary No growth after 48 hours. Assessment and Plan (1) Depression: Status: Acute (2) COVID-19: Status: Acute (3) NSTEMI (non-ST elevated myocardial infarction): Status: Acute Assessment and Plan: hospital d#5 64yo M with COPD undergoing STR at SNF [[facility]] who tested positive for COVID-19 06/27/20 and was called in due to 2/2 BCx positive for GPCs but which returned as contaminant [coagulase-negative Staphylococcus] severe depression with refusal to take medications or food NSTEMI # NSTEMI - ASA, statin, B-adriana, Cardiology consult # severe, resistant depression - Psychiatry consulted + recommends inpatient psychiatry placement for resumption/titration of olanzapine, which he was on previously but for unknown reasons was stopped in mid-May. continue venlafaxine. # COVID-19 PNA [previously diagnosed 06/27/20] - not hypoxic. - negative SARS CoV2 PCR x2, 24 hr apart, OK to d/c isolation precautions # bacteremia - not, d/c'ed vancomycin # COPD exacerbation [prior diagnosis] - s/p prednisone taper. continue LABA/ICS, prn TAMIE # HTN - continue atenolol, hydralazine # DM2 - correction-dose lispro # HLD - continue statin # VTE ppx - LMWH # dispo - tony-psych placement
--- NOTE | 2020-07-09 13:27 | MHC.CARE ---
Bed search exhausted for the day.
--- NOTE | 2020-07-09 14:51 | PM.CNCAR ---
History of Present Illness History of Present Illness Date of Consult: July 09, 2020 Requesting physician: Kassi Smallwood Chief complaint: covid+ abnormal labs/BACTEREMIA Narrative: asked to consult on Salvatore for abnormal EKG. Patient admitted with COVID as well as Gram-positive bacteria in the blood. Echocardiogram did not show any clear evidence of vegetations. Repeated blood cultures are within normal limits. Cardiology consult was sought because of patient's underlying psychiatric issue and to use psychotropic medication and asked to consult on prolonged QT interval. There was also concern for new EKG changes. The new EKGs not however seen in the chart. He no history obtained from the patient. There was no reported chest pain. Troponin minimally elevated, mostly flat. This is and inter professional consult Review of Systems Review of Systems: Yes Unobtainable due to mental status Constitutional: Constitutional: Reports weakness Neurologic: Reports system reviewed and no additional complaints, except as documented, Reports as per HPI and Reports weakness PMFSH Past Medical History Medical History COPD (chronic obstructive pulmonary disease) CVA (cerebral vascular accident) Diabetes mellitus type 1 Dizziness Hypertension Family History Family history: reviewed and not pertinent Surgical History Surgical History History of percutaneous coronary intervention Social History Social History Household Members: Spouse Housing: Apartment Do you presently have visiting nurse or other home services: No Alcohol intake: never Smoking Status: Former smoker Smoked in Last 30 Days: Yes Second Hand Smoke Exposure: No Use of substances other than those prescribed or required for medical reasons: No Currently Displaying Signs/Symptoms of Drug Intoxication Withdrawal: No Have you been hit, kicked, punched, or otherwise hurt by someone within the past year? If so, by whom?: No Do you feel safe in your current relationship?: Yes Is there a partner from a previous relationship who is making you feel unsafe now?: No Are you made to feel afraid or neglected: No Advance Directives: Yes Advance Directives on File: Yes Advance Directives Date on File: 09/30/06 Do you have thoughts of harming others: None Do you have a plan to hurt others: No Plan Recently lost weight without trying: No service: No Current occupational status: retired Meds Allergies Allergy/AdvReac Type Severity Reaction Status Date / Time No Known Allergies Allergy Unknown NKA Verified 07/05/20 17:17 Home Medications Medication Instructions Recorded Confirmed Type atenolol 100 mg PO DAILY 06/06/20 07/06/20 History glipizide 10 mg PO BID 06/06/20 07/06/20 History hydralazine 25 mg PO BID 06/06/20 07/06/20 History lovastatin 20 mg PO BEDTIME 06/06/20 07/06/20 History venlafaxine 75 cap PO DAILY 06/06/20 07/06/20 History venlafaxine 150 mg PO DAILY 06/06/20 07/06/20 History acetaminophen 650 mg PO Q4H PRN 07/06/20 07/06/20 History alum-mag hydroxide-simeth 30 ml PO Q4H PRN 07/06/20 07/06/20 History [Ness-[place]] ondansetron HCl [Zofran] 4 mg PO Q8H PRN 07/06/20 07/06/20 History Physical Exam Vital Signs: Vital Signs: Last Vital Signs Temp 97.3 F 07/09/20 11:16 Pulse 85 07/09/20 12:00 Resp 18 07/09/20 11:16 BP 128/58 L 07/09/20 11:16 Pulse Ox 96 07/09/20 11:16 Body Mass Index 23.6 Const: Other: overall exam not performed Results Labs and Meds Result diagrams: 07/07/20 05:49 07/07/20 05:49 Lab results: Laboratory Results - last 24 hr 07/08/20 07/08/20 07/08/20 16:08 16:23 20:37 POC Glucose 171 H 162 H Troponin I High Sens COVID-19 (RE[facility]NALDO) Negative COVID-19 Clin Com See Note 07/08/20 07/09/20 20:51 02:48 POC Glucose Troponin I High Sens 36.4 H 58.2 H D COVID-19 (REYNALDO) COVID-19 Clin Com EKG from 06/30 shows normal sinus rhythm with right bundle-branch block with anterior T-wave inversions. QTC measured at 465 milliseconds. QRS duration of 142 milliseconds Assessment and Plan (1) Abnormal EKG: Status: Acute abnormal EKG with concern for prolonged repolarization interval. In setting of prolonged QRS duration with bundle-branch block repolarization interval should be considered taking into account the prolonged QRS duration. Two potential parameters can be used. 1 is corrected JT interval, and his case in setting of right bundle-branch block is JTc is 333 milliseconds which is within normal limits. The other parameter is JT prolongation index, in his case is 102 milliseconds which is within normal limits. In both cases his repolarization interval is within normal limits and it was safe to use psychotropic medication if needed. Concern for ST T wave changes in the anterior leads compared to prior EKG and is not concerning for ischemia. His troponins are mostly flat and could be seen in patient with infectious syndrome especially COVID. Continue management from that perspective. Procedures Abscess I/D Date of Service: 07/09/20
[2020-07-09 15:24] VITALS: BP 119/67; PULSE 89; RESP 18; TEMP 36.1; O2SAT 95
--- NOTE | 2020-07-09 17:41 | PC.NURSE ---
Pt refusing POCs. bebeto MCDONALD. no new orders at this time
--- NOTE | 2020-07-09 17:45 | MHC.CARE ---
CARE team completed MSU on this patient who was initially assessed on 07/07/2020. Patient continues to await placement in a contained environment. CARE team is seeking [facility] bed in collaboration with case management's bedsearch.
[2020-07-09 19:48] VITALS: BP 119/61; PULSE 91; RESP 18; TEMP 36.1; O2SAT 99
[2020-07-09] MEDS: OLANZapine ODT 10 MG TAB.RAPDIS TRANSLINGU (20:49)
[2020-07-09] MEDS: Atorvastatin Calcium 80 MG TABLET PO (20:49)
[2020-07-09] MEDS: 0.9 % Sodium Chloride Flush 3 ML SYRINGE IVFLUSH (20:50)
[2020-07-09 20:51] VITALS: BP 123/64; PULSE 75
[2020-07-09] MEDS: hydrALAZINE HCl 25 MG TABLET PO (20:51)
[2020-07-09 21:33] LABS: Glucose, Whole Blood 251 mg/dL (60-115)
[2020-07-09] MEDS: Insulin Lispro 100 UNIT/ML 3 ML VIAL SUBCUT (21:52)
[2020-07-10] VITALS (9 sets, daily range): BP systolic 100–130; BP diastolic 62–72; PULSE 72–96; RESP 18–20; TEMP 36.2–37.1; O2SAT 95–98
[2020-07-10] MEDS: Heparin Sodium,Porcine 5,000 UNIT/ML VIAL 5000 UNIT SUBCUT ×2 (05:03→17:00)
[2020-07-10] MEDS: Fluticasone/Vilanterol 100/25 BLST.W.DEV 1 PUFF INHALE (07:58)
[2020-07-10 09:06] LABS: Glucose, Whole Blood 195 mg/dL (60-115)
[2020-07-10] MEDS: atenoloL 100 MG TABLET PO (10:46)
[2020-07-10] MEDS: Venlafaxine HCl ER 150 MG CAP.ER.24H PO (10:47)
[2020-07-10] MEDS: Venlafaxine HCl ER 75 MG CAP.ER.24H PO (10:47)
[2020-07-10] MEDS: hydrALAZINE HCl 25 MG TABLET PO ×2 (10:47→21:22)
[2020-07-10] MEDS: 0.9 % Sodium Chloride Flush 3 ML SYRINGE IVFLUSH ×2 (10:49→17:00)
--- NOTE | 2020-07-10 10:53 | PC.NURSE ---
Pt refused morning medications but agreed to take at a later time. Meds given per EMAR
[2020-07-10 11:46] LABS: Glucose, Whole Blood 229 mg/dL (60-115)
[2020-07-10] MEDS: Insulin Lispro 100 UNIT/ML 3 ML VIAL SUBCUT ×3 (12:18→21:23)
--- NOTE | 2020-07-10 12:36 | HO.PM.IMPN ---
Subjective Subjective Date of Service: 07/10/20 Interval History: Continues to refuse food, though taking meds. Continues to consistently say leave me alone Physical Exam Vital Signs: Vital Signs: Last Vital Signs Temp 97.8 F 07/10/20 11:13 Pulse 83 07/10/20 11:13 Resp 20 07/10/20 11:13 BP 127/70 07/10/20 11:13 Pulse Ox 97 07/10/20 11:13 Body Mass Index 23.6 gen: restricted affect, irritated lungs: auscultation deferred due to COVID-19. no resp distress CV: regular pulses peripherally abd: non-distended ext: no cyanosis, clubbing, or edema psych: restricted affect Objective Data Current Medications Generic Name Dose Route Start Last Admin Trade Name Freq PRN Reason Stop Dose Admin Acetaminophen 650 mg 07/06/20 01:54 Acetaminophen 325 Mg Tablet PO Q6H PRN Pain, Mild (Pain Scale 1-3) Atenolol 100 mg 07/06/20 09:00 07/10/20 10:46 Atenolol 100 Mg Tablet PO 100 mg DAILY RASHI Administration Protocol Atorvastatin Calcium 80 mg 07/08/20 18:00 07/09/20 20:49 Atorvastatin Calcium 80 Mg Tablet PO 80 mg BEDTIME RASHI Administration Docusate Sodium 100 mg 07/06/20 01:54 Docusate Sodium 100 Mg Capsule PO DAILY PRN Constipation Fluticasone/Vilanterol 1 puff 07/06/20 08:00 07/10/20 07:58 Fluticasone/Vilanterol 100/25 Blst.W.Dev INHALE 1 puff RDAILY RASHI Administration Heparin Sodium (Porcine) 5,000 unit 07/06/20 06:00 07/10/20 05:03 Heparin Sodium,Porcine 5,000 Unit/Ml Vial SUBCUT 5,000 unit Q12H RASHI Administration Hydralazine HCl 25 mg 07/06/20 09:00 07/10/20 10:47 Hydralazine Hcl 25 Mg Tablet PO 25 mg BID RASHI Administration Protocol Insulin Human Lispro 0 unit 07/06/20 07:30 07/10/20 12:18 Insulin Lispro 100 Unit/Ml 3 Ml Vial SUBCUT 4 unit QIDACHS RASHI Administration Protocol Olanzapine 10 mg 07/08/20 21:00 07/09/20 20:49 Olanzapine Odt 10 Mg Tab.Rapdis TRANSLINGU 10 mg BEDTIME RASHI Administration Ondansetron HCl 4 mg 07/06/20 01:54 Ondansetron Hcl 4 Mg/2 Ml Vial IVPUSH Q8H PRN Nausea and Vomiting Sodium Chloride 3 ml 07/06/20 01:54 07/10/20 10:49 0.9 % Sodium Chloride Flush 3 Ml Syringe IVFLUSH 3 ml QSHIFT RASHI Administration Venlafaxine HCl 75 mg 07/06/20 09:00 07/10/20 10:47 Venlafaxine Hcl Er 75 Mg Cap.Er.24h PO 75 mg DAILY RASHI Administration Venlafaxine HCl 150 mg 07/06/20 09:00 07/10/20 10:47 Venlafaxine Hcl Er 150 Mg Cap.Er.24h PO 150 mg DAILY RASHI Administration Labs CBC & Chem 7: 07/07/20 05:49 07/07/20 05:49 Labs: Laboratory Results - last 24 hr 07/09/20 07/10/20 07/10/20 21:09 09:02 11:16 POC Glucose 251 H 195 H 229 H Microbiology Microbiology Results: Microbiology 07/06/20 05:54 Blood - Venous Blood Culture - Preliminary No growth after 48 hours. 07/06/20 05:52 Blood - Venous Blood Culture - Preliminary No growth after 48 hours. 07/05/20 21:54 Blood - Venous Blood Culture - Preliminary No growth after 48 hours. 07/05/20 19:51 Blood - Venous Blood Culture - Preliminary No growth after 48 hours. Assessment and Plan (1) Depression: Status: Acute (2) COVID-19: Status: Acute (3) NSTEMI (non-ST elevated myocardial infarction): Status: Acute Assessment and Plan: hospital d#6 64yo M with COPD undergoing STR at [facility] [[facility] [place]] who tested positive for COVID-19 06/27/20 and was called in due to 2/2 BCx positive for GPCs but which returned as contaminant [coagulase-negative Staphylococcus] severe depression with refusal to take medications or food # severe, resistant depression - Psychiatry consulted + recommends inpatient psychiatry placement for resumption/titration of olanzapine, which he was on previously but for unknown reasons was stopped in mid-May. continue venlafaxine, back on olanzapine 10 mg qhs (was on 20 mg) - QTc must be corrected for RBBB. JTc is 333 ms- normal. OK to continue olanzapine. # elevated Tn-I - 47 -> 45 -> 43 -> 36 -> 58. not ACS, but rather due to COVID-19 per Cardiology. # COVID-19 PNA [previously diagnosed 06/27/20] - not hypoxic. - negative SARS CoV2 PCR x2, 24 hr apart, d/c'ed isolation precautions # bacteremia - not, d/c'ed vancomycin # COPD exacerbation [prior diagnosis] - s/p prednisone taper. continue LABA/ICS, prn TAMIE # HTN - continue atenolol, hydralazine # DM2, A1c 9.2 - correction-dose lispro # HLD - continue statin # VTE ppx - LMWH # dispo - awaiting tony-psych placement
[2020-07-10 16:29] LABS: Glucose, Whole Blood 282 mg/dL (60-115)
[2020-07-10 21:21] LABS: Glucose, Whole Blood 202 mg/dL (60-115)
[2020-07-10] MEDS: Atorvastatin Calcium 80 MG TABLET PO (21:22)
[2020-07-10] MEDS: OLANZapine ODT 10 MG TAB.RAPDIS TRANSLINGU (21:22)
[2020-07-11] VITALS (7 sets, daily range): BP systolic 116–130; BP diastolic 59–72; PULSE 69–77; RESP 18; TEMP 36.6–37.1; O2SAT 93–97
[2020-07-11] MEDS: 0.9 % Sodium Chloride Flush 3 ML SYRINGE IVFLUSH ×3 (00:18→18:12)
--- NOTE | 2020-07-11 05:21 | PC.NURSE ---
care assumed 23:15...awake..converses..resistant to care...denies/offers no complaints...states just leave me alone--stay away from me ...nsr no ectopy....respirations easy...texas catheter with rasheed-yellow urine..refuses positioning this am
[2020-07-11] MEDS: Fluticasone/Vilanterol 100/25 BLST.W.DEV 1 PUFF INHALE ×2 (08:03→08:04)
[2020-07-11 08:18] LABS: Glucose, Whole Blood 216 mg/dL (60-115)
[2020-07-11] MEDS: Insulin Lispro 100 UNIT/ML 3 ML VIAL SUBCUT (08:25)
[2020-07-11] MEDS: hydrALAZINE HCl 25 MG TABLET PO ×2 (08:26→21:04)
[2020-07-11] MEDS: Venlafaxine HCl ER 75 MG CAP.ER.24H PO (08:28)
[2020-07-11] MEDS: atenoloL 100 MG TABLET PO (08:28)
[2020-07-11] MEDS: Venlafaxine HCl ER 150 MG CAP.ER.24H PO (08:28)
--- NOTE | 2020-07-11 10:52 | MHC.CARE ---
t/w conducted statewide bedsearch for pt beginning at 9a [facility] and [facility] are actively reviewing clincial sent at 9am and follow up call at 11am still reviewing. The following units are FULL:[facility], [facility], [facility], and [facility]. [facility] system only accepting from own ED. [facility] and [facility] accepted clinical for review for WAITLIST.
--- NOTE | 2020-07-11 11:43 | MHC.CARE ---
T/w spoke w pts Savana for an update on pts bedsearch. She expressed how thankful she is for the help and welcomes any contact with her.
--- NOTE | 2020-07-11 12:06 | MHC.CM.PN ---
Care team is conducting a statewide [facility] bed search; [facility] and [facility] are reviewing and Patient is on other facility's wait list(resists care, refusing food/Depression. CM will continue to follow.
[2020-07-11 12:33] LABS: Glucose, Whole Blood 186 mg/dL (60-115)
--- NOTE | 2020-07-11 15:11 | P.PNIM_ITS ---
Subjective Subjective Date of Service: 07/11/20 Interval History: patient seen and examined at bedside patient denies any complain Constitutional Constitutional: Denies weakness Cardiovascular Cardiovascular: Denies dyspnea Respiratory Respiratory: Denies dyspnea Gastrointestinal Gastrointestinal: Denies vomiting Neurologic Neurologic: Denies weakness Physical Exam Vital Signs: Vital Signs: Last Vital Signs Temp 98.7 F 07/11/20 04:00 Pulse 77 07/11/20 08:28 Resp 18 07/11/20 04:00 BP 130/59 L 07/11/20 08:28 Pulse Ox 95 07/11/20 04:00 Body Mass Index 23.6 Const: General: no acute distress, poor hygiene and tired appearing Orientation/consciousness: Other orientation findings ( unable to assess orientation as patient not willing to answer my questi) Eyes: General: appearance normal, both eyes and all related structures Pupils: Equal, round and reactive pupils present Resp: Effort & Inspection: normal respiratory effort and able to speak in complete sentences Auscultation: clear to auscultation bilaterally Cardio: Rate: regular rate Rhythm: regular rhythm GI: Palpation (GI): Soft to palpation Auscultation: normal bowel sounds Skin: General skin exam: no rashes or lesions noted Neuro: Cranial nerves: Yes Equal, round and reactive pupils present Cognition (Neuro): normal cognition Extrem: General: Yes normal to inspection and Yes no pedal edema Objective Data Current Medications Generic Name Dose Route Start Last Admin Trade Name Freq PRN Reason Stop Dose Admin Acetaminophen 650 mg 07/06/20 01:54 Acetaminophen 325 Mg Tablet PO Q6H PRN Pain, Mild (Pain Scale 1-3) Atenolol 100 mg 07/06/20 09:00 07/11/20 08:28 Atenolol 100 Mg Tablet PO 100 mg DAILY RASHI Administration Protocol Atorvastatin Calcium 80 mg 07/08/20 18:00 07/10/20 21:22 Atorvastatin Calcium 80 Mg Tablet PO 80 mg BEDTIME RASHI Administration Docusate Sodium 100 mg 07/06/20 01:54 Docusate Sodium 100 Mg Capsule PO DAILY PRN Constipation Fluticasone/Vilanterol 1 puff 07/06/20 08:00 07/11/20 08:04 Fluticasone/Vilanterol 100/25 Blst.W.Dev INHALE 1 puff RDAILY RASHI Administration Heparin Sodium (Porcine) 5,000 unit 07/06/20 06:00 07/11/20 05:52 Heparin Sodium,Porcine 5,000 Unit/Ml Vial SUBCUT Not Given Q12H RASHI Hydralazine HCl 25 mg 07/06/20 09:00 07/11/20 08:26 Hydralazine Hcl 25 Mg Tablet PO 25 mg BID RASHI Administration Protocol Insulin Human Lispro 0 unit 07/06/20 07:30 07/11/20 13:02 Insulin Lispro 100 Unit/Ml 3 Ml Vial SUBCUT Not Given QIDACHS [facility] Protocol Olanzapine 10 mg 07/08/20 21:00 07/10/20 21:22 Olanzapine Odt 10 Mg Tab.Rapdis TRANSLINGU 10 mg BEDTIME RASHI Administration Ondansetron HCl 4 mg 07/06/20 01:54 Ondansetron Hcl 4 Mg/2 Ml Vial IVPUSH Q8H PRN Nausea and Vomiting Sodium Chloride 3 ml 07/06/20 01:54 07/11/20 08:29 0.9 % Sodium Chloride Flush 3 Ml Syringe IVFLUSH 3 ml QSHIFT RASHI Administration Venlafaxine HCl 75 mg 07/06/20 09:00 07/11/20 08:28 Venlafaxine Hcl Er 75 Mg Cap.Er.24h PO 75 mg DAILY RASHI Administration Venlafaxine HCl 150 mg 07/06/20 09:00 07/11/20 08:28 Venlafaxine Hcl Er 150 Mg Cap.Er.24h PO 150 mg DAILY RASHI Administration Labs CBC & Chem 7: 07/07/20 05:49 07/07/20 05:49 Microbiology Microbiology Results: Microbiology 07/06/20 05:54 Blood - Venous Blood Culture - Final No growth after 5 days. 07/06/20 05:52 Blood - Venous Blood Culture - Final No growth after 5 days. 07/05/20 21:54 Blood - Venous Blood Culture - Final No growth after 5 days. 07/05/20 19:51 Blood - Venous Blood Culture - Final No growth after 5 days. Assessment and Plan (1) Depression: Status: Acute (2) COVID-19: Status: Acute (3) NSTEMI (non-ST elevated myocardial infarction): Status: Acute Assessment and Plan: hospital d#6 64yo M with COPD undergoing STR at [facility] [[facility]] who tested positive for COVID-19 06/27/20 and was called in due to 2/2 BCx positive for GPCs but which returned as contaminant [coagulase-negative Staphylococcus severe depression with refusal to take medications or food Severe, resistant depression Psychiatry consulted + recommends inpatient psychiatry placement for resumption/titration of olanzapine, which he was on previously but for unknown reasons was stopped in mid-May. continue venlafaxine continue olanzapine 10 mg qhs (was on 20 mg) Mildly Elevated Tn-I - 47 -> 45 -> 43 -> 36 -> 58. not ACS, but rather due to COVID-19 per Cardiology. COVID-19 PNA [previously diagnosed 06/27/20] no hypoxia patient has negative SARS CoV2 PCR x2, 24 hr apart, d/c'ed isolation precautions Bacteremia blood culture grew Staph epidermidis likely contamination vancomycin stopped COPD exacerbation [prior diagnosis] - s/p prednisone taper. continue LABA/ICS, prn TAMIE HTN continue atenolol, hydralazine DM2, A1c 9.2 continue sliding scale insulin monitor blood glucose HLD continue statin VTE ppx continue LMWH dispo awaiting tony-psych placement
[2020-07-11 16:28] LABS: Glucose, Whole Blood 183 mg/dL (60-115)
[2020-07-11] MEDS: Heparin Sodium,Porcine 5,000 UNIT/ML VIAL 5000 UNIT SUBCUT (18:12)
[2020-07-11 20:33] LABS: Glucose, Whole Blood 168 mg/dL (60-115)
[2020-07-11] MEDS: Atorvastatin Calcium 80 MG TABLET PO (21:05)
[2020-07-11] MEDS: OLANZapine ODT 10 MG TAB.RAPDIS TRANSLINGU (21:05)
[2020-07-12] MEDS: 0.9 % Sodium Chloride Flush 3 ML SYRINGE IVFLUSH ×2 (00:12→16:36)
[2020-07-12 03:44] VITALS: BP 107/57; PULSE 78; RESP 18; TEMP 36.8; O2SAT 94
[2020-07-12 09:27] LABS: Glucose, Whole Blood 189 mg/dL (60-115)
[2020-07-12 11:26] LABS: Glucose, Whole Blood 183 mg/dL (60-115)
[2020-07-12 12:00] VITALS: BP 121/58; PULSE 70; RESP 20; TEMP 36.3; O2SAT 97
--- NOTE | 2020-07-12 14:12 | MHC.CARE ---
t/w has conducted a statewide bedsearch again for pt. All units called from list yesterday are reporting being FULL . Two units reported dcs later and confirmed that pt was on the waitlist from yesterdays bedsearch, agreed to look at pt. [facility] at 12n agreed to look again and review, asked for mental status update and covid results faxed again. T/w sent this as well as a HCP that t/w obtained from case management on medical unit and the unit/admissions will call CARE team when unit finished reviewing as of 1420. T/w also faxed MSU and HCP to [facility].
--- NOTE | 2020-07-12 15:33 | HO.PM.IMPN ---
Subjective Subjective Date of Service: 07/12/20 Interval History: patient seen and examined at bedside, patient is refusing medication Constitutional Constitutional: Reports weakness Cardiovascular Cardiovascular: Denies dyspnea Respiratory Respiratory: Denies dyspnea Gastrointestinal Gastrointestinal: Denies vomiting Neurologic Neurologic: Reports weakness Physical Exam Vital Signs: Vital Signs: Last Vital Signs Temp 98.7 F 07/11/20 04:00 Pulse 77 07/11/20 08:28 Resp 18 07/11/20 04:00 BP 130/59 L 07/11/20 08:28 Pulse Ox 95 07/11/20 04:00 Body Mass Index 23.6 Const: Other: Last Vital Signs Temp 98.7 F 07/11/20 04:00 Pulse 77 07/11/20 08:28 Resp 18 07/11/20 04:00 BP 130/59 L 07/11/20 08:28 Pulse Ox 95 07/11/20 04:00 Body Mass Index 23.6 General: comfortable, no acute distress, poor hygiene and tired appearing Orientation/consciousness: Other orientation findings ( unable to assess orientation as patient not willing to answer my questi) Eyes: General: appearance normal, both eyes and all related structures Pupils: Equal, round and reactive pupils present Resp: Effort & Inspection: normal respiratory effort and able to speak in complete sentences Auscultation: clear to auscultation bilaterally Cardio: Other: Last Vital Signs Temp 98.7 F 07/11/20 04:00 Pulse 77 07/11/20 08:28 Resp 18 07/11/20 04:00 BP 130/59 L 07/11/20 08:28 Pulse Ox 95 07/11/20 04:00 Body Mass Index 23.6 Rate: regular rate Rhythm: regular rhythm GI: Palpation (GI): Soft to palpation Auscultation: normal bowel sounds Skin: General skin exam: no rashes or lesions noted Neuro: Cranial nerves: Yes Equal, round and reactive pupils present Cognition (Neuro): normal cognition Extrem: General: Yes normal to inspection and Yes no pedal edema Objective Data Current Medications Generic Name Dose Route Start Last Admin Trade Name Freq PRN Reason Stop Dose Admin Acetaminophen 650 mg 07/06/20 01:54 Acetaminophen 325 Mg Tablet PO Q6H PRN Pain, Mild (Pain Scale 1-3) Atenolol 100 mg 07/06/20 09:00 07/12/20 10:24 Atenolol 100 Mg Tablet PO Not Given DAILY [facility] Protocol Atorvastatin Calcium 80 mg 07/08/20 18:00 07/11/20 21:05 Atorvastatin Calcium 80 Mg Tablet PO 80 mg BEDTIME [facility] Administration Docusate Sodium 100 mg 07/06/20 01:54 Docusate Sodium 100 Mg Capsule PO DAILY PRN Constipation Fluticasone/Vilanterol 1 puff 07/06/20 08:00 07/11/20 08:04 Fluticasone/Vilanterol 100/25 Blst.W.Dev INHALE 1 puff RDAILY [facility] Administration Heparin Sodium (Porcine) 5,000 unit 07/06/20 06:00 07/12/20 07:09 Heparin Sodium,Porcine 5,000 Unit/Ml Vial SUBCUT Not Given Q12H [facility] Hydralazine HCl 25 mg 07/06/20 09:00 07/12/20 10:25 Hydralazine Hcl 25 Mg Tablet PO Not Given BID [facility] Protocol Insulin Human Lispro 0 unit 07/06/20 07:30 07/12/20 15:25 Insulin Lispro 100 Unit/Ml 3 Ml Vial SUBCUT Not Given QIDACHS [facility] Protocol Olanzapine 10 mg 07/08/20 21:00 07/11/20 21:05 Olanzapine Odt 10 Mg Tab.Rapdis TRANSLINGU 10 mg BEDTIME [facility] Administration Ondansetron HCl 4 mg 07/06/20 01:54 Ondansetron Hcl 4 Mg/2 Ml Vial IVPUSH Q8H PRN Nausea and Vomiting Sodium Chloride 3 ml 07/06/20 01:54 07/12/20 10:24 0.9 % Sodium Chloride Flush 3 Ml Syringe IVFLUSH Not Given QSHIFT [facility] Venlafaxine HCl 75 mg 07/06/20 09:00 07/12/20 10:25 Venlafaxine Hcl Er 75 Mg Cap.Er.24h PO Not Given DAILY [facility] Venlafaxine HCl 150 mg 07/06/20 09:00 07/12/20 10:25 Venlafaxine Hcl Er 150 Mg Cap.Er.24h PO Not Given DAILY [facility] Labs CBC & Chem 7: 07/07/20 05:49 07/07/20 05:49 Microbiology Microbiology Results: Microbiology 07/06/20 05:54 Blood - Venous Blood Culture - Final No growth after 5 days. 07/06/20 05:52 Blood - Venous Blood Culture - Final No growth after 5 days. 07/05/20 21:54 Blood - Venous Blood Culture - Final No growth after 5 days. 07/05/20 19:51 Blood - Venous Blood Culture - Final No growth after 5 days. Assessment and Plan (1) Depression: Status: Acute (2) COVID-19: Status: Acute (3) NSTEMI (non-ST elevated myocardial infarction): Status: Acute Assessment and Plan: hospital d#6 64yo M with COPD undergoing STR at SNF [[facility]] who tested positive for COVID-19 06/27/20 and was called in due to 09/27 BCx positive for GPCs but which returned as contaminant [coagulase-negative Staphylococcus severe depression with refusal to take medications or food Severe, resistant depression Psychiatry consulted + recommends inpatient psychiatry placement for resumption/titration of olanzapine, which he was on previously but for unknown reasons was stopped in mid-May. continue venlafaxine continue olanzapine 10 mg qhs (was on 20 mg) Mildly Elevated Tn-I - 47 -> 45 -> 43 -> 36 -> 58. not ACS, but rather due to COVID-19 per Cardiology. COVID-19 PNA [previously diagnosed 06/27/20] no hypoxia patient has negative SARS CoV2 PCR x2, 24 hr apart, d/c'ed isolation precautions Bacteremia blood culture grew Staph epidermidis likely contamination vancomycin stopped COPD exacerbation [prior diagnosis] - s/p prednisone taper. continue LABA/ICS, prn TAMIE HTN continue atenolol, hydralazine DM2, A1c 9.2 continue sliding scale insulin monitor blood glucose HLD continue statin VTE ppx continue LMWH dispo awaiting tony-psych placement
[2020-07-12 15:52] VITALS: BP 111/68; PULSE 75; RESP 18; TEMP 36.9; O2SAT 98
[2020-07-12 16:14] LABS: Glucose, Whole Blood 196 mg/dL (60-115)
--- NOTE | 2020-07-12 17:02 | PC.NURSE ---
pt is refusing to get out of bed, stated leave me alone, I don't want to talk about it
[2020-07-12] MEDS: Insulin Lispro 100 UNIT/ML 3 ML VIAL SUBCUT ×2 (17:51→20:46)
--- NOTE | 2020-07-12 17:53 | PC.NURSE ---
pt refused to order dinner for tonight, later on pt agreed that he will eat and he ordered tuna sandwich and ice cream. Pt refused to get up from the bed to the recliner for dinner.Pt took his Insulin before dinner
[2020-07-12 19:05] VITALS: BP 114/59; PULSE 87; RESP 18; TEMP 36.7; O2SAT 96
[2020-07-12] MEDS: OLANZapine ODT 10 MG TAB.RAPDIS TRANSLINGU (19:59)
[2020-07-12] MEDS: Heparin Sodium,Porcine 5,000 UNIT/ML VIAL 5000 UNIT SUBCUT (20:03)
--- NOTE | 2020-07-12 20:04 | PC.NURSE ---
Teresa pt took his Zyprexa, he refused Atorvastatin ,stated that medication is too big.
[2020-07-12 20:31] LABS: Glucose, Whole Blood 246 mg/dL (60-115)
[2020-07-12 23:47] VITALS: BP 154/73; PULSE 89; RESP 18; TEMP 37; O2SAT 97
[2020-07-13] VITALS (8 sets, daily range): BP systolic 111–137; BP diastolic 53–83; PULSE 65–99; RESP 18–20; TEMP 36.2–36.9; O2SAT 91–96
--- NOTE | 2020-07-13 | XR_ITS ---
EXAMINATION: XR ABDOMEN KUB CLINICAL INDICATION: Nausea, vomiting and abdominal pain. Evaluate for obstruction. COMPARISON: CT abdomen from 07/04/2020. TECHNIQUE: Abdomen, AP view, patient supine position FINDINGS: No acute abnormalities in the visualized lung bases. Although gas is observed within the lumen of the stomach, the stomach is normal in size. No dilated loops of bowel. No evidence of pneumoperitoneum on these radiographs acquired with the patient in a supine position. Moderate amount of fecal material is present within the colon and rectum. No evidence of renal calculi. Atherosclerotic calcification of the aorta and iliac arteries. Mild levocurvature of the degenerated lumbar spine. XR/XR KUB IMPRESSION: No evidence of bowel obstruction.
[2020-07-13 07:43] LABS: Glucose, Whole Blood 343 mg/dL (60-115)
[2020-07-13] MEDS: hydrALAZINE HCl 25 MG TABLET PO (08:03)
[2020-07-13] MEDS: Venlafaxine HCl ER 75 MG CAP.ER.24H PO (08:03)
[2020-07-13] MEDS: Venlafaxine HCl ER 150 MG CAP.ER.24H PO (08:03)
[2020-07-13] MEDS: Insulin Lispro 100 UNIT/ML 3 ML VIAL SUBCUT ×2 (08:03→12:23)
[2020-07-13] MEDS: atenoloL 100 MG TABLET PO (08:03)
[2020-07-13 10:25] LABS: MANUAL DIFF FLAG NO
[2020-07-13] MEDS: 0.9 % Sodium Chloride Flush 3 ML SYRINGE IVFLUSH ×2 (10:30→16:30)
[2020-07-13 10:38] LABS: Basophils Percent Auto 0.3 % (0-2); Eosinophils Percent Auto 0.1 % (0-4); Imm Gran Abs Auto 0.29 X10*3/uL (0.00-0.03); Imm Gran Pct Auto 2.6 % (0.0-0.4); Lymphocytes Absolute Auto 0.8 X10*3/uL (1.2-4.9); Lymphocytes Percent Auto 6.6 % (20-40); Mean Corpuscular HGB Conc 32.7 g/dl (31.0-36.0); Mean Corpuscular Volume 91.7 fL (80-98); Mean Platelet Volume 8.8 fL (9.4-12.4); Monocytes Absolute Auto 0.4 X10*3/uL (0.1-1.2); Monocytes Percent Auto 3.1 % (2-11); NRBC Pct Auto 0.3 /100WBC (0.0-0.2); Neutrophils Absolute Auto 9.9 X10*3/uL (2.0-8.3); Neutrophils Percent Auto 87.3 % (45-73); Platelet Count 188 X10*3/uL (160-400); Red Cell Distribution Width 15.1 % (11.0-16.0); White Blood Count 11.3 X10*3/uL (4.8-10.8)
[2020-07-13 10:54] LABS: Hemoglobin 7.2 g/dl (14.0-18.0)
[2020-07-13] MEDS: ondansetron HCL 4 MG/2 ML VIAL IVPUSH (10:57)
[2020-07-13 11:05] LABS: Glucose, Whole Blood 278 mg/dL (60-115)
--- NOTE | 2020-07-13 11:22 | MHC.CM.PN ---
Care Team is actively conducting a [facility]; CM will continue to follow.
[2020-07-13 11:29] LABS: Anion Gap 18 (12-20); Blood Urea Nitrogen 37 mg/dL (9-16); Calcium 7.8 mg/dL (8.4-10.2); Carbon Dioxide 22 mmol/L (22-29); Chloride 100 mmol/L (96-108); Creatinine Clr Calc Pharmacy 55.2; Estimated Glomerular Filt Rate 59; Glucose Random 345 mg/dL (60-115); Potassium 3.9 mmol/l (3.3-5.1); Sodium 136 mmol/L (135-145)
--- NOTE | 2020-07-13 14:40 | HO.PM.IMPN ---
Subjective Subjective Date of Service: 07/13/20 Interval History: patient seen and examined at bedside patient denies any complaint Constitutional Constitutional: Reports weakness Cardiovascular Cardiovascular: Denies dyspnea Respiratory Respiratory: Denies dyspnea Gastrointestinal Gastrointestinal: Denies vomiting Neurologic Neurologic: Reports weakness Physical Exam Vital Signs: Vital Signs: Last Vital Signs Temp 98.7 F 07/11/20 04:00 Pulse 77 07/11/20 08:28 Resp 18 07/11/20 04:00 BP 130/59 L 07/11/20 08:28 Pulse Ox 95 07/11/20 04:00 Body Mass Index 23.6 Const: Other: Last Vital Signs Temp 98.7 F 07/11/20 04:00 Pulse 77 07/11/20 08:28 Resp 18 07/11/20 04:00 BP 130/59 L 07/11/20 08:28 Pulse Ox 95 07/11/20 04:00 Body Mass Index 23.6 General: comfortable, no acute distress, poor hygiene and tired appearing Orientation/consciousness: Other orientation findings ( unable to assess orientation as patient not willing to answer my questi) Eyes: General: appearance normal, both eyes and all related structures Pupils: Equal, round and reactive pupils present Resp: Effort & Inspection: normal respiratory effort and able to speak in complete sentences Auscultation: clear to auscultation bilaterally Cardio: Other: Last Vital Signs Temp 98.7 F 07/11/20 04:00 Pulse 77 07/11/20 08:28 Resp 18 07/11/20 04:00 BP 130/59 L 07/11/20 08:28 Pulse Ox 95 07/11/20 04:00 Body Mass Index 23.6 Rate: regular rate Rhythm: regular rhythm GI: Palpation (GI): Soft to palpation Auscultation: normal bowel sounds Skin: General skin exam: no rashes or lesions noted Neuro: Cranial nerves: Yes Equal, round and reactive pupils present Cognition (Neuro): normal cognition Extrem: General: Yes normal to inspection and Yes no pedal edema Objective Data Current Medications Generic Name Dose Route Start Last Admin Trade Name Freq PRN Reason Stop Dose Admin Acetaminophen 650 mg 07/06/20 01:54 Acetaminophen 325 Mg Tablet PO Q6H PRN Pain, Mild (Pain Scale 1-3) Atenolol 100 mg 07/06/20 09:00 11/18/20 08:03 Atenolol 100 Mg Tablet PO 100 mg DAILY [facility] Administration Protocol Atorvastatin Calcium 80 mg 07/08/20 18:00 07/12/20 20:03 Atorvastatin Calcium 80 Mg Tablet PO Not Given BEDTIME [facility] Docusate Sodium 100 mg 07/06/20 01:54 Docusate Sodium 100 Mg Capsule PO DAILY PRN Constipation Fluticasone/Vilanterol 1 puff 07/06/20 08:00 07/13/20 08:16 Fluticasone/Vilanterol 100/25 Blst.W.Dev INHALE Not Given RDAILY [facility] Heparin Sodium (Porcine) 5,000 unit 07/06/20 06:00 07/13/20 05:53 Heparin Sodium,Porcine 5,000 Unit/Ml Vial SUBCUT Not Given Q12H [facility] Hydralazine HCl 25 mg 07/06/20 09:00 07/13/20 08:03 Hydralazine Hcl 25 Mg Tablet PO 25 mg BID [facility] Administration Protocol Insulin Human Lispro 0 unit 07/06/20 07:30 07/13/20 12:23 Insulin Lispro 100 Unit/Ml 3 Ml Vial SUBCUT 6 unit QIDACHS [facility] Administration Protocol Olanzapine 10 mg 07/08/20 21:00 07/12/20 19:59 Olanzapine Odt 10 Mg Tab.Rapdis TRANSLINGU 10 mg BEDTIME [facility] Administration Ondansetron HCl 4 mg 07/06/20 01:54 07/13/20 10:57 Ondansetron Hcl 4 Mg/2 Ml Vial IVPUSH 4 mg Q8H PRN Administration Nausea and Vomiting Sodium Chloride 3 ml 07/06/20 01:54 07/13/20 10:30 0.9 % Sodium Chloride Flush 3 Ml Syringe IVFLUSH 3 ml QSHIFT [facility] Administration Venlafaxine HCl 75 mg 07/06/20 09:00 07/13/20 08:03 Venlafaxine Hcl Er 75 Mg Cap.Er.24h PO 75 mg DAILY [facility] Administration Venlafaxine HCl 150 mg 07/06/20 09:00 07/13/20 08:03 Venlafaxine Hcl Er 150 Mg Cap.Er.24h PO 150 mg DAILY [facility] Administration Labs CBC & Chem 7: 07/13/20 09:29 07/13/20 09:29 Microbiology Microbiology Results: Microbiology 07/06/20 05:54 Blood - Venous Blood Culture - Final No growth after 5 days. 07/06/20 05:52 Blood - Venous Blood Culture - Final No growth after 5 days. 07/05/20 21:54 Blood - Venous Blood Culture - Final No growth after 5 days. 07/05/20 19:51 Blood - Venous Blood Culture - Final No growth after 5 days. Assessment and Plan (1) Depression: Status: Acute (2) COVID-19: Status: Acute (3) NSTEMI (non-ST elevated myocardial infarction): Status: Acute Assessment and Plan: hospital d#6 64yo M with COPD undergoing STR at [facility] [[facility]] who tested positive for COVID-19 06/27/20 and was called in due to 09/27 BCx positive for GPCs but which returned as contaminant [coagulase-negative Staphylococcus severe depression with refusal to take medications or food Severe, resistant depression Psychiatry consulted + recommends inpatient psychiatry placement for resumption/titration of olanzapine, which he was on previously but for unknown reasons was stopped in mid-May. continue venlafaxine continue olanzapine 10 mg qhs (was on 20 mg) Mildly Elevated Tn-I - 47 -> 45 -> 43 -> 36 -> 58. not ACS, but rather due to COVID-19 per Cardiology. COVID-19 PNA [previously diagnosed 06/27/20] no hypoxia patient has negative SARS CoV2 PCR x2, 24 hr apart, d/c'ed isolation precautions Bacteremia blood culture grew Staph epidermidis likely contamination vancomycin stopped COPD exacerbation [prior diagnosis] - s/p prednisone taper. continue LABA/ICS, prn TAMIE HTN continue atenolol, hydralazine DM2, A1c 9.2 continue sliding scale insulin monitor blood glucose HLD continue statin VTE ppx continue LMWH dispo awaiting tony-psych placement
[2020-07-13 16:37] LABS: Glucose, Whole Blood 235 mg/dL (60-115)
--- NOTE | 2020-07-13 17:30 | PC.NURSE ---
Patient had vomited dark brown, thin, possible coffee ground emesis. MD notified. VSS. Pt appears fitzgerald. C/o nausea. Unable to recall LBM. Last documented BM on 07/08. Report from previous RN, poor PO intake today. Patient cleaned, changed, HOB elevated, awaiting new orders.
[2020-07-13 18:12] LABS: MANUAL DIFF FLAG NO
[2020-07-13 18:14] LABS: Basophils Percent Auto 0.2 % (0-2); Eosinophils Percent Auto 0.1 % (0-4); Hematocrit 22.5 % (42-52); Hemoglobin 7.4 g/dl (14.0-18.0); Imm Gran Pct Auto 2.4 % (0.0-0.4); Lymphocytes Absolute Auto 0.9 X10*3/uL (1.2-4.9); Lymphocytes Percent Auto 5.2 % (20-40); Mean Corpuscular HGB Conc 32.9 g/dl (31.0-36.0); Mean Corpuscular Hemoglobin 30.1 pg (27.0-33.0); Mean Corpuscular Volume 91.5 fL (80-98); Mean Platelet Volume 8.7 fL (9.4-12.4); Monocytes Absolute Auto 0.8 X10*3/uL (0.1-1.2); Monocytes Percent Auto 4.8 % (2-11); NRBC Pct Auto 0.4 /100WBC (0.0-0.2); Neutrophils Absolute Auto 14.5 X10*3/uL (2.0-8.3); Neutrophils Percent Auto 87.3 % (45-73); Platelet Count 197 X10*3/uL (160-400); Red Blood Count 2.46 X10*6/uL (4.60-5.80); Red Cell Distribution Width 15.6 % (11.0-16.0); White Blood Count 16.6 X10*3/uL (4.8-10.8)
[2020-07-13] MEDS: 0.9 % Sodium Chloride 1,000 ML 75 ML IVCONT (18:34)
[2020-07-13] MEDS: Pantoprazole Sodium 40 MG/10 ML VIAL IVPUSH (18:34)
[2020-07-13 20:46] LABS: Glucose, Whole Blood 278 mg/dL (60-115)
[2020-07-13] MEDS: Atorvastatin Calcium 40 MG TABLET PO (21:22)
[2020-07-13] MEDS: OLANZapine ODT 10 MG TAB.RAPDIS TRANSLINGU (21:23)
--- NOTE | 2020-07-13 21:39 | MHC.CARE ---
CARE Team attempts to completed mental status update, and reaches out to pt's nurse. Jason RN reports that pt is getting a blood transfusion and there is a suspected GI bleed. Pt is no longer medically cleared and ready for inpatient psychiatric placement. CARE Team will discontinue [facility] bedsearch at this time. [facility] [place] should re-consult CARE Team and psychiatry once pt is medically cleared and ready for discharge/transfer if indicated. CARE Team reaches out to spouse in order to discuss change in plan. Spouse confirms understanding of why bedsearch is discontinued.
--- NOTE | 2020-07-13 22:35 | PC.NURSE ---
Pt received 1 unit of PRBC. No reactions noted. VSS. Reminded pt of NPO status after midnight. Pt took HS meds. Held insulin due to NPO status. Pt has not eaten dinner and continues with intermittent nausea.
[2020-07-14] VITALS (16 sets, daily range): BP systolic 91–155; BP diastolic 47–72; PULSE 63–113; RESP 16–36; TEMP 36.2–38.7; O2SAT 91–100; BMI 23.6
[2020-07-14] MEDS: 0.9 % Sodium Chloride Flush 3 ML SYRINGE IVFLUSH ×3 (00:09→23:54)
[2020-07-14 04:59] LABS: MANUAL DIFF FLAG NO
[2020-07-14 05:03] LABS: Basophils Percent Auto 0.2 % (0-2); Eosinophils Percent Auto 0.1 % (0-4); Hematocrit 28.4 % (42-52); Hemoglobin 9.5 g/dl (14.0-18.0); Imm Gran Abs Auto 0.34 X10*3/uL (0.00-0.03); Imm Gran Pct Auto 2.1 % (0.0-0.4); Lymphocytes Absolute Auto 1.8 X10*3/uL (1.2-4.9); Lymphocytes Percent Auto 10.6 % (20-40); Mean Corpuscular HGB Conc 33.5 g/dl (31.0-36.0); Mean Corpuscular Hemoglobin 29.1 pg (27.0-33.0); Mean Corpuscular Volume 86.9 fL (80-98); Mean Platelet Volume 8.8 fL (9.4-12.4); Monocytes Absolute Auto 1.3 X10*3/uL (0.1-1.2); Monocytes Percent Auto 7.7 % (2-11); NRBC Pct Auto 0.7 /100WBC (0.0-0.2); Neutrophils Absolute Auto 13.1 X10*3/uL (2.0-8.3); Neutrophils Percent Auto 79.3 % (45-73); Platelet Count 139 X10*3/uL (160-400); Red Blood Count 3.27 X10*6/uL (4.60-5.80); Red Cell Distribution Width 17.2 % (11.0-16.0); White Blood Count 16.5 X10*3/uL (4.8-10.8)
[2020-07-14] MEDS: Pantoprazole Sodium 40 MG/10 ML VIAL IVPUSH (06:01)
--- NOTE | 2020-07-14 06:35 | PC.NURSE ---
CARE ASSUMED 23:15...AWAKE..ALERT..REMAINS RESISTANT TO CARE...REPEATEDLY STATES JUST LEAVE ME ALONE ...GONG..RESPIRATIONS EASY...VSS...DENIES PAIN...[place] CATH COLLECTING SOLANGE-YELLOW URINE...2ND UNIT PRBC INFUSED W/O INCIDENT...REPEAT H/H=9.5/28.1 ...DR NAM UPDATED/AWARE..NO SIGNS OF BLEEDING..NO STOOL OR EMESIS OVERNIGHT
[2020-07-14 07:24] LABS: Glucose, Whole Blood 186 mg/dL (60-115)
[2020-07-14] MEDS: Insulin Lispro 100 UNIT/ML 3 ML VIAL SUBCUT ×3 (08:29→20:55)
--- NOTE | 2020-07-14 09:53 | PM.EVENT ---
Event Note Date of Service: 07/14/20 Event Note: GI consult dictated Patient with coffee ground emesis x2 yesterday. No melena, does c/o some heartburn. hct improved after 2 U PRBC transfusion. Ddx: Erosive esophagitis, PUD, AVM's, malignancy EGD this am for diagnosis. Pt aware of risks and benefits and agrees to proceed.
[2020-07-14 10:30] LABS: Glucose, Whole Blood 126 mg/dL (60-115)
--- NOTE | 2020-07-14 10:31 | MHC.SHP ---
Pre-Procedural Eval Section A The patient is an INPATIENT: Yes The History & Physical has been completed within 30 days and I have reviewed it.: Yes Section B Chief Complaint: covid+ abnormal labs/BACTEREMIA Allergies: Allergies Allergy/AdvReac Type Severity Reaction Status Date / Time No Known Allergies Allergy Unknown NKA Verified 07/05/20 17:17 Plan Patient has been examined and remains a candidate for the planned procedure
--- NOTE | 2020-07-14 10:34 | HO.ANESPROP2 ---
HPI - Anesthesia Eval Consult details Narrative: 64 M with upper GIB PMFSH Past Medical History Medical History COPD (chronic obstructive pulmonary disease) CVA (cerebral vascular accident) Diabetes mellitus type 1 Dizziness Hypertension Surgical History Surgical History History of percutaneous coronary intervention Social History Social History Household Members: Spouse Housing: Apartment Do you presently have visiting nurse or other home services: No Alcohol intake: never Smoking Status: Former smoker Smoked in Last 30 Days: Yes Second Hand Smoke Exposure: No Use of substances other than those prescribed or required for medical reasons: No Currently Displaying Signs/Symptoms of Drug Intoxication Withdrawal: No Have you been hit, kicked, punched, or otherwise hurt by someone within the past year? If so, by whom?: No Do you feel safe in your current relationship?: Yes Is there a partner from a previous relationship who is making you feel unsafe now?: No Are you made to feel afraid or neglected: No Advance Directives: Yes Advance Directives on File: Yes Advance Directives Date on File: 09/30/06 Do you have thoughts of harming others: None Do you have a plan to hurt others: No Plan Recently lost weight without trying: No service: No Current occupational status: retired [employer] Allergies Allergy/AdvReac Type Severity Reaction Status Date / Time No Known Allergies Allergy Unknown NKA Verified 07/05/20 17:17 Home Medications Medication Instructions Recorded Confirmed Type atenolol 100 mg PO DAILY 06/06/20 07/06/20 History glipizide 10 mg PO BID 06/06/20 07/06/20 History hydralazine 25 mg PO BID 06/06/20 07/06/20 History lovastatin 20 mg PO BEDTIME 06/06/20 07/06/20 History venlafaxine 75 cap PO DAILY 06/06/20 07/06/20 History venlafaxine 150 mg PO DAILY 06/06/20 07/06/20 History acetaminophen 650 mg PO Q4H PRN 07/06/20 07/06/20 History alum-mag hydroxide-simeth 30 ml PO Q4H PRN 07/06/20 07/06/20 History [Ness-[place]] ondansetron HCl [Zofran] 4 mg PO Q8H PRN 07/06/20 07/06/20 History Exam Exam Date and Time: July 14, 2020 1034 Height,Weight and Vital Signs: Height 5 ft 7 in Weight 68.4 kg Last Vital Signs Temp 97.8 F 07/14/20 10:18 Pulse 66 07/14/20 10:18 Resp 16 07/14/20 10:18 BP 122/60 07/14/20 10:18 Pulse Ox 96 07/14/20 10:18 Pertinent Lab Results Pertinent Lab Results: Laboratory Tests 07/05/20 07/05/20 07/05/20 19:49 19:49 19:49 WBC 9.9 RBC 4.41 L Hgb 12.9 L Hct 38.2 L MCV 86.6 MCH 29.3 MCHC 33.8 RDW 13.4 Plt Count 141 L MPV 8.6 L Immature Gran % (Auto) 1.1 H Neut % (Auto) 81.1 H Lymph % (Auto) 11.0 L Johnston % (Auto) 6.6 Eos % (Auto) 0.1 Baso % (Auto) 0.1 Lymph # (Auto) 1.1 L Johnston # (Auto) 0.7 Eos # (Auto) 0.0 Baso # (Auto) 0.0 Abs Immat Gran (auto) 0.11 H Absolute Neuts (auto) 8.0 Absolute Nucleated RBC 0.000 Nucleated RBC % (auto) 0.0 PT 11.9 INR 1.0 APTT 27.7 Sodium 132 L Potassium 4.5 Chloride 98 Carbon Dioxide 25 Anion Gap 14 BUN 27 H Creatinine 0.98 Estim Creat Clear Calc 69.3 Estimated GFR > 60 POC Glucose Random Glucose 211 H Estimat Average Glucose Hemoglobin A1c % Lactic Acid Calcium 7.6 L Ferritin Total Bilirubin 0.5 Direct Bilirubin AST 15 ALT 17 Alkaline Phosphatase 90 Lactate Dehydrogenase Troponin I High Sens C-Reactive Protein Total Protein 5.5 L Albumin 3.0 L Procalcitonin Urine Color Urine Appearance Urine pH Ur Specific [place] Urine Protein Urine Glucose (UA) Urine Ketones Urine Blood Urine Nitrite Ur Leukocyte Esterase Urine RBC Urine WBC Ur Squamous Epith Cells Urine Bacteria Vancomycin Trough COVID-19 ([facility]) COVID-19 Clin Com Blood Type Antibody Screen Crossmatch 07/05/20 07/05/20 07/05/20 19:49 19:49 19:50 WBC RBC Hgb Hct MCV MCH MCHC RDW Plt Count MPV Immature Gran % (Auto) Neut % (Auto) Lymph % (Auto) Johnston % (Auto) Eos % (Auto) Baso % (Auto) Lymph # (Auto) Johnston # (Auto) Eos # (Auto) Baso # (Auto) Abs Immat Gran (auto) Absolute Neuts (auto) Absolute Nucleated RBC Nucleated RBC % (auto) PT INR APTT Sodium Potassium Chloride Carbon Dioxide Anion Gap BUN Creatinine Estim Creat Clear Calc Estimated GFR POC Glucose Random Glucose Estimat Average Glucose Hemoglobin A1c % Lactic Acid 1.0 Calcium Ferritin 1444 H Total Bilirubin 0.5 Direct Bilirubin 0.3 AST 14 ALT 17 Alkaline Phosphatase 90 Lactate Dehydrogenase 268 Troponin I High Sens C-Reactive Protein Total Protein 5.5 L Albumin 3.0 L Procalcitonin 0.04 Urine Color Urine Appearance Urine pH Ur Specific [place] Urine Protein Urine Glucose (UA) Urine Ketones Urine Blood Urine Nitrite Ur Leukocyte Esterase Urine RBC Urine WBC Ur Squamous Epith Cells Urine Bacteria Vancomycin Trough COVID-19 ([facility]) COVID-19 Clin Com Blood Type Antibody Screen Crossmatch 07/06/20 07/06/20 07/06/20 02:06 05:54 05:54 WBC 10.6 RBC 4.31 L Hgb 12.6 L Hct 37.6 L MCV 87.2 MCH 29.2 MCHC 33.5 RDW 13.5 Plt Count 146 L MPV 8.9 L Immature Gran % (Auto) 1.0 H Neut % (Auto) 73.0 Lymph % (Auto) 16.1 L Johnston % (Auto) 8.8 Eos % (Auto) 0.8 Baso % (Auto) 0.3 Lymph # (Auto) 1.7 Johnston # (Auto) 0.9 Eos # (Auto) 0.1 Baso # (Auto) 0.0 Abs Immat Gran (auto) 0.11 H Absolute Neuts (auto) 7.7 Absolute Nucleated RBC 0.000 Nucleated RBC % (auto) 0.0 PT INR APTT Sodium 133 L Potassium 3.8 Chloride 100 Carbon Dioxide 23 Anion Gap 14 BUN 25 H Creatinine 0.85 Estim Creat Clear Calc 79.9 Estimated GFR > 60 POC Glucose 124 H Random Glucose 117 H D Estimat Average Glucose Hemoglobin A1c % Lactic Acid Calcium 7.7 L Ferritin Total Bilirubin Direct Bilirubin AST ALT Alkaline Phosphatase Lactate Dehydrogenase Troponin I High Sens C-Reactive Protein Total Protein Albumin Procalcitonin Urine Color Urine Appearance Urine pH Ur Specific [place] Urine Protein Urine Glucose (UA) Urine Ketones Urine Blood Urine Nitrite Ur Leukocyte Esterase Urine RBC Urine WBC Ur Squamous Epith Cells Urine Bacteria Vancomycin Trough COVID-19 (REYNALDO) COVID-19 [employer] [facility] Blood Type Antibody Screen Crossmatch 07/06/20 07/06/20 07/06/20 06:27 07:40 11:01 WBC RBC Hgb Hct MCV MCH MCHC RDW Plt Count MPV Immature Gran % (Auto) Neut % (Auto) Lymph % (Auto) Johnston % (Auto) Eos % (Auto) Baso % (Auto) Lymph # (Auto) Johnston # (Auto) Eos # (Auto) Baso # (Auto) Abs Immat Gran (auto) Absolute Neuts (auto) Absolute Nucleated RBC Nucleated RBC % (auto) PT INR APTT Sodium Potassium Chloride Carbon Dioxide Anion Gap BUN Creatinine Estim Creat Clear Calc Estimated GFR POC Glucose 122 H 161 H Random Glucose Estimat Average Glucose Hemoglobin A1c % Lactic Acid Calcium Ferritin Total Bilirubin Direct Bilirubin AST ALT Alkaline Phosphatase Lactate Dehydrogenase Troponin I High Sens C-Reactive Protein Total Protein Albumin Procalcitonin Urine Color YELLOW Urine Appearance CLEAR Urine pH 6.0 Ur Specific [place] >= 1.030 H Urine Protein 2+ H Urine Glucose (UA) 250 H Urine Ketones 15 Urine Blood NEG Urine Nitrite NEG Ur Leukocyte Esterase NEG Urine RBC 0 Urine WBC 0-2 Ur Squamous Epith Cells TRACE Urine Bacteria NONE Vancomycin Trough COVID-19 (RE[facility]NALDO) COVID-19 [employer] [facility] Blood Type Antibody Screen Crossmatch 07/06/20 07/06/20 07/07/20 15:37 20:08 05:49 WBC 11.8 H RBC 4.32 L Hgb 12.9 L Hct 38.2 L MCV 88.4 MCH 29.9 MCHC 33.8 RDW 13.6 Plt Count 155 L MPV 8.9 L Immature Gran % (Auto) 1.4 H Neut % (Auto) 75.0 H Lymph % (Auto) 14.2 L Johnston % (Auto) 8.4 Eos % (Auto) 0.7 Baso % (Auto) 0.3 Lymph # (Auto) 1.7 Johnston # (Auto) 1.0 Eos # (Auto) 0.1 Baso # (Auto) 0.0 Abs Immat Gran (auto) 0.16 H Absolute Neuts (auto) 8.9 H Absolute Nucleated RBC 0.000 Nucleated RBC % (auto) 0.0 PT INR APTT Sodium Potassium Chloride Carbon Dioxide Anion Gap BUN Creatinine Estim Creat Clear Calc Estimated GFR POC Glucose 217 H 221 H Random Glucose Estimat Average Glucose Hemoglobin A1c % Lactic Acid Calcium Ferritin Total Bilirubin Direct Bilirubin AST ALT Alkaline Phosphatase Lactate Dehydrogenase Troponin I High Sens C-Reactive Protein Total Protein Albumin Procalcitonin Urine Color Urine Appearance Urine pH Ur Specific [place] Urine Protein Urine Glucose (UA) Urine Ketones Urine Blood Urine Nitrite Ur Leukocyte Esterase Urine RBC Urine WBC Ur Squamous Epith Cells Urine Bacteria Vancomycin Trough COVID-19 (REYNALDO) [employer] Blood Type Antibody Screen Crossmatch 07/07/20 07/07/20 07/07/20 05:49 05:49 05:49 WBC RBC Hgb Hct MCV MCH MCHC RDW Plt Count MPV Immature Gran % (Auto) Neut % (Auto) Lymph % (Auto) [place] % (Auto) Eos % (Auto) Baso % (Auto) Lymph # (Auto) Johnston # (Auto) Eos # (Auto) Baso # (Auto) Abs Immat Gran (auto) Absolute Neuts (auto) Absolute Nucleated RBC Nucleated RBC % (auto) PT INR APTT Sodium 134 L Potassium 4.8 D Chloride 99 Carbon Dioxide 27 Anion Gap 13 BUN 25 H Creatinine 0.89 Estim Creat Clear Calc 76.3 Estimated GFR > 60 POC Glucose Random Glucose 117 H Estimat Average Glucose 217 Hemoglobin A1c % 9.2 Lactic Acid Calcium 7.7 L Ferritin Total Bilirubin 0.4 Direct Bilirubin AST 13 ALT 18 Alkaline Phosphatase 87 Lactate Dehydrogenase 261 Troponin I High Sens C-Reactive Protein 0.96 H Total Protein 5.3 L Albumin 2.9 L Procalcitonin 0.02 Urine Color Urine Appearance Urine pH Ur Specific [place] Urine Protein Urine Glucose (UA) Urine Ketones Urine Blood Urine Nitrite Ur Leukocyte Esterase Urine RBC Urine WBC Ur Squamous Epith Cells Urine Bacteria Vancomycin Trough COVID-19 (REYNALDO) COVID-19 [employer] Blood Type Antibody Screen Crossmatch 07/07/20 07/07/20 07/07/20 07:36 11:20 14:57 WBC RBC Hgb Hct MCV MCH MCHC RDW Plt Count MPV Immature Gran % (Auto) Neut % (Auto) Lymph % (Auto) [place] % (Auto) Eos % (Auto) Baso % (Auto) Lymph # (Auto) [place] # (Auto) Eos # (Auto) Baso # (Auto) Abs Immat Gran (auto) Absolute Neuts (auto) Absolute Nucleated RBC Nucleated RBC % (auto) PT INR APTT Sodium Potassium Chloride Carbon Dioxide Anion Gap BUN Creatinine Estim Creat Clear Calc Estimated GFR POC Glucose 120 H 158 H Random Glucose Estimat Average Glucose Hemoglobin A1c % Lactic Acid Calcium Ferritin Total Bilirubin Direct Bilirubin AST ALT Alkaline Phosphatase Lactate Dehydrogenase Troponin I High Sens C-Reactive Protein Total Protein Albumin Procalcitonin Urine Color Urine Appearance Urine pH Ur Specific [place] Urine Protein Urine Glucose (UA) Urine Ketones Urine Blood Urine Nitrite Ur Leukocyte Esterase Urine RBC Urine WBC Ur Squamous Epith Cells Urine Bacteria Vancomycin Trough 3.9 L COVID-19 (REYNALDO) [employer] Blood Type Antibody Screen Crossmatch 07/07/20 07/07/20 07/07/20 15:59 16:16 20:00 WBC RBC Hgb Hct MCV MCH MCHC RDW Plt Count MPV Immature Gran % (Auto) Neut % (Auto) Lymph % (Auto) [place] % (Auto) Eos % (Auto) Baso % (Auto) Lymph # (Auto) [place] # (Auto) Eos # (Auto) Baso # (Auto) Abs Immat Gran (auto) Absolute Neuts (auto) Absolute Nucleated RBC Nucleated RBC % (auto) PT INR APTT Sodium Potassium Chloride Carbon Dioxide Anion Gap BUN Creatinine Estim Creat Clear Calc Estimated GFR POC Glucose 191 H 154 H Random Glucose Estimat Average Glucose Hemoglobin A1c % Lactic Acid Calcium Ferritin Total Bilirubin Direct Bilirubin AST ALT Alkaline Phosphatase Lactate Dehydrogenase Troponin I High Sens C-Reactive Protein Total Protein Albumin Procalcitonin Urine Color Urine Appearance Urine pH Ur Specific [place] Urine Protein Urine Glucose (UA) Urine Ketones Urine Blood Urine Nitrite Ur Leukocyte Esterase Urine RBC Urine WBC Ur Squamous Epith Cells Urine Bacteria Vancomycin Trough COVID-19 (REYNALDO) Negative COVID-19 [employer] See Note Blood Type Antibody Screen Crossmatch 07/08/20 07/08/20 07/08/20 07:39 11:17 16:08 WBC RBC Hgb Hct MCV MCH MCHC RDW Plt Count MPV Immature Gran % (Auto) Neut % (Auto) Lymph % (Auto) [place] % (Auto) Eos % (Auto) Baso % (Auto) Lymph # (Auto) [place] # (Auto) Eos # (Auto) Baso # (Auto) Abs Immat Gran (auto) Absolute Neuts (auto) Absolute Nucleated RBC Nucleated RBC % (auto) PT INR APTT Sodium Potassium Chloride Carbon Dioxide Anion Gap BUN Creatinine Estim Creat Clear Calc Estimated GFR POC Glucose 146 H 181 H Random Glucose Estimat Average Glucose Hemoglobin A1c % Lactic Acid Calcium Ferritin Total Bilirubin Direct Bilirubin AST ALT Alkaline Phosphatase Lactate Dehydrogenase Troponin I High Sens C-Reactive Protein Total Protein Albumin Procalcitonin Urine Color Urine Appearance Urine pH Ur Specific [place] Urine Protein Urine Glucose (UA) Urine Ketones Urine Blood Urine Nitrite Ur Leukocyte Esterase Urine RBC Urine WBC Ur Squamous Epith Cells Urine Bacteria Vancomycin Trough COVID-19 (REYNALDO) Negative COVID-19 [employer] Com See Note Blood Type Antibody Screen Crossmatch 07/08/20 07/08/20 07/08/20 16:23 20:37 20:51 WBC RBC Hgb Hct MCV MCH MCHC RDW Plt Count MPV Immature Gran % (Auto) Neut % (Auto) Lymph % (Auto) [place] % (Auto) Eos % (Auto) Baso % (Auto) Lymph # (Auto) [place] # (Auto) Eos # (Auto) Baso # (Auto) Abs Immat Gran (auto) Absolute Neuts (auto) Absolute Nucleated RBC Nucleated RBC % (auto) PT INR APTT Sodium Potassium Chloride Carbon Dioxide Anion Gap BUN Creatinine Estim Creat Clear Calc Estimated GFR POC Glucose 171 H 162 H Random Glucose Estimat Average Glucose Hemoglobin A1c % Lactic Acid Calcium Ferritin Total Bilirubin Direct Bilirubin AST ALT Alkaline Phosphatase Lactate Dehydrogenase Troponin I High Sens 36.4 H C-Reactive Protein Total Protein Albumin Procalcitonin Urine Color Urine Appearance Urine pH Ur Specific [place] Urine Protein Urine Glucose (UA) Urine Ketones Urine Blood Urine Nitrite Ur Leukocyte Esterase Urine RBC Urine WBC Ur Squamous Epith Cells Urine Bacteria Vancomycin Trough COVID-19 (REYNALDO) COVID-19 [employer] Com Blood Type Antibody Screen Crossmatch 07/09/20 07/09/20 07/10/20 02:48 21:09 09:02 WBC RBC Hgb Hct MCV MCH MCHC RDW Plt Count MPV Immature Gran % (Auto) Neut % (Auto) Lymph % (Auto) Johnston % (Auto) Eos % (Auto) Baso % (Auto) Lymph # (Auto) Johnston # (Auto) Eos # (Auto) Baso # (Auto) Abs Immat Gran (auto) Absolute Neuts (auto) Absolute Nucleated RBC Nucleated RBC % (auto) PT INR APTT Sodium Potassium Chloride Carbon Dioxide Anion Gap BUN Creatinine Estim Creat Clear Calc Estimated GFR POC Glucose 251 H 195 H Random Glucose Estimat Average Glucose Hemoglobin A1c % Lactic Acid Calcium Ferritin Total Bilirubin Direct Bilirubin AST ALT Alkaline Phosphatase Lactate Dehydrogenase Troponin I High Sens 58.2 H D C-Reactive Protein Total Protein Albumin Procalcitonin Urine Color Urine Appearance Urine pH Ur Specific [place] Urine Protein Urine Glucose (UA) Urine Ketones Urine Blood Urine Nitrite Ur Leukocyte Esterase Urine RBC Urine WBC Ur Squamous Epith Cells Urine Bacteria Vancomycin Trough COVID-19 (REYNALDO) [employer] Blood Type Antibody Screen Crossmatch 07/10/20 07/10/20 07/10/20 11:16 16:26 21:18 WBC RBC Hgb Hct MCV MCH MCHC RDW Plt Count MPV Immature Gran % (Auto) Neut % (Auto) Lymph % (Auto) Johnston % (Auto) Eos % (Auto) Baso % (Auto) Lymph # (Auto) Johnston # (Auto) Eos # (Auto) Baso # (Auto) Abs Immat Gran (auto) Absolute Neuts (auto) Absolute Nucleated RBC Nucleated RBC % (auto) PT INR APTT Sodium Potassium Chloride Carbon Dioxide Anion Gap BUN Creatinine Estim Creat Clear Calc Estimated GFR POC Glucose 229 H 282 H 202 H Random Glucose Estimat Average Glucose Hemoglobin A1c % Lactic Acid Calcium Ferritin Total Bilirubin Direct Bilirubin AST ALT Alkaline Phosphatase Lactate Dehydrogenase Troponin I High Sens C-Reactive Protein Total Protein Albumin Procalcitonin Urine Color Urine Appearance Urine pH Ur Specific [place] Urine Protein Urine Glucose (UA) Urine Ketones Urine Blood Urine Nitrite Ur Leukocyte Esterase Urine RBC Urine WBC Ur Squamous Epith Cells Urine Bacteria Vancomycin Trough COVID-19 (REYNALDO) COVID-19 [employer] Blood Type Antibody Screen Crossmatch 07/11/20 07/11/20 07/11/20 08:14 12:30 16:19 WBC RBC Hgb Hct MCV MCH MCHC RDW Plt Count MPV Immature Gran % (Auto) Neut % (Auto) Lymph % (Auto) Johnston % (Auto) Eos % (Auto) Baso % (Auto) Lymph # (Auto) Johnston # (Auto) Eos # (Auto) Baso # (Auto) Abs Immat Gran (auto) Absolute Neuts (auto) Absolute Nucleated RBC Nucleated RBC % (auto) PT INR APTT Sodium Potassium Chloride Carbon Dioxide Anion Gap BUN Creatinine Estim Creat Clear Calc Estimated GFR POC Glucose 216 H 186 H 183 H Random Glucose Estimat Average Glucose Hemoglobin A1c % Lactic Acid Calcium Ferritin Total Bilirubin Direct Bilirubin AST ALT Alkaline Phosphatase Lactate Dehydrogenase Troponin I High Sens C-Reactive Protein Total Protein Albumin Procalcitonin Urine Color Urine Appearance Urine pH Ur Specific [place] Urine Protein Urine Glucose (UA) Urine Ketones Urine Blood Urine Nitrite Ur Leukocyte Esterase Urine RBC Urine WBC Ur Squamous Epith Cells Urine Bacteria Vancomycin Trough COVID-19 (REYNALDO) COVID[address] Blood Type Antibody Screen Crossmatch 07/11/20 07/12/20 07/12/20 20:26 09:24 11:13 WBC RBC Hgb Hct MCV MCH MCHC RDW Plt Count MPV Immature Gran % (Auto) Neut % (Auto) Lymph % (Auto) Johnston % (Auto) Eos % (Auto) Baso % (Auto) Lymph # (Auto) Johnston # (Auto) Eos # (Auto) Baso # (Auto) Abs Immat Gran (auto) Absolute Neuts (auto) Absolute Nucleated RBC Nucleated RBC % (auto) PT INR APTT Sodium Potassium Chloride Carbon Dioxide Anion Gap BUN Creatinine Estim Creat Clear Calc Estimated GFR POC Glucose 168 H 189 H 183 H Random Glucose Estimat Average Glucose Hemoglobin A1c % Lactic Acid Calcium Ferritin Total Bilirubin Direct Bilirubin AST ALT Alkaline Phosphatase Lactate Dehydrogenase Troponin I High Sens C-Reactive Protein Total Protein Albumin Procalcitonin Urine Color Urine Appearance Urine pH Ur Specific [place] Urine Protein Urine Glucose (UA) Urine Ketones Urine Blood Urine Nitrite Ur Leukocyte Esterase Urine RBC Urine WBC Ur Squamous Epith Cells Urine Bacteria Vancomycin Trough COVID-19 (REYNALDO) COVID-19 [facility] Blood Type Antibody Screen Crossmatch 07/12/20 07/12/20 07/13/20 16:07 20:20 07:31 WBC RBC Hgb Hct MCV MCH MCHC RDW Plt Count MPV Immature Gran % (Auto) Neut % (Auto) Lymph % (Auto) Johnston % (Auto) Eos % (Auto) Baso % (Auto) Lymph # (Auto) Johnston # (Auto) Eos # (Auto) Baso # (Auto) Abs Immat Gran (auto) Absolute Neuts (auto) Absolute Nucleated RBC Nucleated RBC % (auto) PT INR APTT Sodium Potassium Chloride Carbon Dioxide Anion Gap BUN Creatinine Estim Creat Clear Calc Estimated GFR POC Glucose 196 H 246 H 343 H Random Glucose Estimat Average Glucose Hemoglobin A1c % Lactic Acid Calcium Ferritin Total Bilirubin Direct Bilirubin AST ALT Alkaline Phosphatase Lactate Dehydrogenase Troponin I High Sens C-Reactive Protein Total Protein Albumin Procalcitonin Urine Color Urine Appearance Urine pH Ur Specific [place] Urine Protein Urine Glucose (UA) Urine Ketones Urine Blood Urine Nitrite Ur Leukocyte Esterase Urine RBC Urine WBC Ur Squamous Epith Cells Urine Bacteria Vancomycin Trough COVID-19 (REYNALDO) COVID-19 [facility] Com Blood Type Antibody Screen Crossmatch 07/13/20 07/13/20 07/13/20 09:29 09:29 11:02 WBC 11.3 H RBC 2.40 L D Hgb 7.2 L D Hct 22.0 L D MCV 91.7 MCH 30.0 MCHC 32.7 RDW 15.1 Plt Count 188 MPV 8.8 L Immature Gran % (Auto) 2.6 H Neut % (Auto) 87.3 H Lymph % (Auto) 6.6 L Johnston % (Auto) 3.1 Eos % (Auto) 0.1 Baso % (Auto) 0.3 Lymph # (Auto) 0.8 L Johnston # (Auto) 0.4 Eos # (Auto) 0.0 Baso # (Auto) 0.0 Abs Immat Gran (auto) 0.29 H Absolute Neuts (auto) 9.9 H Absolute Nucleated RBC 0.030 H Nucleated RBC % (auto) 0.3 H PT INR APTT Sodium 136 Potassium 3.9 Chloride 100 Carbon Dioxide 22 Anion Gap 18 BUN 37 H Creatinine 1.23 Estim Creat Clear Calc 55.2 Estimated GFR 59 POC Glucose 278 H Random Glucose 345 H D Estimat Average Glucose Hemoglobin A1c % Lactic Acid Calcium 7.8 L Ferritin Total Bilirubin Direct Bilirubin AST ALT Alkaline Phosphatase Lactate Dehydrogenase Troponin I High Sens C-Reactive Protein Total Protein Albumin Procalcitonin Urine Color Urine Appearance Urine pH Ur Specific [place] Urine Protein Urine Glucose (UA) Urine Ketones Urine Blood Urine Nitrite Ur Leukocyte Esterase Urine RBC Urine WBC Ur Squamous Epith Cells Urine Bacteria Vancomycin Trough COVID-19 (REYNALDO) COVID-19 [facility] Com Blood Type Antibody Screen Crossmatch 07/13/20 07/13/20 07/13/20 16:31 17:56 17:56 WBC 16.6 H RBC 2.46 L Hgb 7.4 L Hct 22.5 L MCV 91.5 MCH 30.1 MCHC 32.9 RDW 15.6 Plt Count 197 MPV 8.7 L Immature Gran % (Auto) 2.4 H Neut % (Auto) 87.3 H Lymph % (Auto) 5.2 L Johnston % (Auto) 4.8 Eos % (Auto) 0.1 Baso % (Auto) 0.2 Lymph # (Auto) 0.9 L Johnston # (Auto) 0.8 Eos # (Auto) 0.0 Baso # (Auto) 0.0 Abs Immat Gran (auto) 0.40 H Absolute Neuts (auto) 14.5 H Absolute Nucleated RBC 0.060 H Nucleated RBC % (auto) 0.4 H PT INR APTT Sodium Potassium Chloride Carbon Dioxide Anion Gap BUN Creatinine Estim Creat Clear Calc Estimated GFR POC Glucose 235 H Random Glucose Estimat Average Glucose Hemoglobin A1c % Lactic Acid Calcium Ferritin Total Bilirubin Direct Bilirubin AST ALT Alkaline Phosphatase Lactate Dehydrogenase Troponin I High Sens C-Reactive Protein Total Protein Albumin Procalcitonin Urine Color Urine Appearance Urine pH Ur Specific [place] Urine Protein Urine Glucose (UA) Urine Ketones Urine Blood Urine Nitrite Ur Leukocyte Esterase Urine RBC Urine WBC Ur Squamous Epith Cells Urine Bacteria Vancomycin Trough COVID-19 (REYNALDO) COVID-19 Clin Com Blood Type O Positive Antibody Screen NEGATIVE Crossmatch See Detail 07/13/20 07/14/20 07/14/20 20:36 04:52 07:17 WBC 16.5 H RBC 3.27 L D Hgb 9.5 L D Hct 28.4 L D MCV 86.9 MCH 29.1 MCHC 33.5 RDW 17.2 H Plt Count 139 L D MPV 8.8 L Immature Gran % (Auto) 2.1 H Neut % (Auto) 79.3 H Lymph % (Auto) 10.6 L Johnston % (Auto) 7.7 Eos % (Auto) 0.1 Baso % (Auto) 0.2 Lymph # (Auto) 1.8 Johnston # (Auto) 1.3 H Eos # (Auto) 0.0 Baso # (Auto) 0.0 Abs Immat Gran (auto) 0.34 H Absolute Neuts (auto) 13.1 H Absolute Nucleated RBC 0.120 H Nucleated RBC % (auto) 0.7 H PT INR APTT Sodium Potassium Chloride Carbon Dioxide Anion Gap BUN Creatinine Estim Creat Clear Calc Estimated GFR POC Glucose 278 H 186 H Random Glucose Estimat Average Glucose Hemoglobin A1c % Lactic Acid Calcium Ferritin Total Bilirubin Direct Bilirubin AST ALT Alkaline Phosphatase Lactate Dehydrogenase Troponin I High Sens C-Reactive Protein Total Protein Albumin Procalcitonin Urine Color Urine Appearance Urine pH Ur Specific [place] Urine Protein Urine Glucose (UA) Urine Ketones Urine Blood Urine Nitrite Ur Leukocyte Esterase Urine RBC Urine WBC Ur Squamous Epith Cells Urine Bacteria Vancomycin Trough COVID-19 (REYNALDO) COVID-19 [employer] Com Blood Type Antibody Screen Crossmatch 07/14/20 10:27 WBC RBC Hgb Hct MCV MCH MCHC RDW Plt Count MPV Immature Gran % (Auto) Neut % (Auto) Lymph % (Auto) [place] % (Auto) Eos % (Auto) Baso % (Auto) Lymph # (Auto) Johnston # (Auto) Eos # (Auto) Baso # (Auto) Abs Immat Gran (auto) Absolute Neuts (auto) Absolute Nucleated RBC Nucleated RBC % (auto) PT INR APTT Sodium Potassium Chloride Carbon Dioxide Anion Gap BUN Creatinine Estim Creat Clear Calc Estimated GFR POC Glucose 126 H Random Glucose Estimat Average Glucose Hemoglobin A1c % Lactic Acid Calcium Ferritin Total Bilirubin Direct Bilirubin AST ALT Alkaline Phosphatase Lactate Dehydrogenase Troponin I High Sens C-Reactive Protein Total Protein Albumin Procalcitonin Urine Color Urine Appearance Urine pH Ur Specific [place] Urine Protein Urine Glucose (UA) Urine Ketones Urine Blood Urine Nitrite Ur Leukocyte Esterase Urine RBC Urine WBC Ur Squamous Epith Cells Urine Bacteria Vancomycin Trough COVID-19 (REYNALDO) COVID-19 [facility] Com Blood Type Antibody Screen Crossmatch Airway Mallampati Class: III Neck ROM: Full Loose/Missing/Broken Teeth: Yes Assessment and Plan Assessment Anesthesia Assessment: Chart Reviewed Final Anesthetic Review NPO: Yes ASA Class: III and Emergency Final Preanesthetic Review: No Changes in Pt Med Stat, Meds/Allgs Chart Reviewed, Consent Obtained/Reviewed and Anes Risks/Benef Reviewed Patient Risk: Intermediate Procedure Risk: Low Anesthetic Plan Anesthetic Plan: MAC: Disposition: Standard PACU
--- NOTE | 2020-07-14 11:00 | PM.OP ---
Brief Operative Note Date of Service: 07/14/20 Pre-op diagnosis: upper gi bleed Post-op diagnosis: same (erosive esophagitis, duodenitis/duodenal ulcer) Procedure: EGD biopsy Surgeon: Gamal Morales Anesthesia: MAC Estimated blood loss (mL): 2 Pathology: other (antral biopsies) Condition: stable Disposition: PACU
--- NOTE | 2020-07-14 11:02 | PM.EVENT ---
Event Note Date of Service: 07/14/20 Event Note: EGD note dictated Erosive esophagitis over distal 2/3 of esophagus no bleeding duodenitis with small clean based duodenal ulcer in 2nd portion antral biopsies taken advance diet follow hct bid ppi no nsaids, anticoagulants.
[2020-07-14 12:05] LABS: Glucose, Whole Blood 147 mg/dL (60-115)
--- NOTE | 2020-07-14 13:12 | CONS_ITS ---
DATE OF SERVICE: 07/14/2020 REFERRING PHYSICIAN: Rm Mo MD REASON FOR CONSULTATION: Upper GI bleeding. HISTORY OF PRESENT ILLNESS: The patient is a 64-year-old man who was admitted to the hospital on July 05 because of bacteremia. He was diagnosed with COVID-19 infection on July 01 and had blood cultures done, which came back positive and after being discharged on July 01, was readmitted on July 05. Blood cultures were subsequently felt to be contaminants and repeat COVID testing has been negative. Yesterday, he was reported to vomit coffee-ground looking material twice. He does complain of some reflux symptoms. He has been started on a proton pump inhibitor. He has no prior history of peptic ulcer disease. He has never undergone colonoscopy. PAST MEDICAL HISTORY: Coronary artery disease, COPD, CVA with left-sided weakness, depression, hypertension, hyperlipidemia, diabetes. CURRENT MEDICATIONS: Current medication list is reviewed in the chart. ALLERGIES: THERE ARE NONE REPORTED. FAMILY HISTORY: This is reviewed in electronic medical record and is noncontributory. SOCIAL HISTORY: There is no reported substance abuse. REVIEW OF SYSTEMS: This is not obtainable. PHYSICAL EXAMINATION: GENERAL: Shows an elderly, unkempt male lying in bed. VITAL SIGNS: Reviewed in electronic medical record and are stable. SKIN: Anicteric. HEENT: Shows no scleral icterus. NECK: Without lymphadenopathy or thyromegaly. LUNGS: Clear. HEART: Shows regular rate and rhythm. S1, S2. No murmur. ABDOMEN: Soft without focal masses or tenderness. Bowel sounds are present. No organomegaly is noted. EXTREMITIES: Without edema. LABORATORY DATA: Shows a white blood cell count of 16.5. Hemoglobin was 7.4 yesterday. He did receive a total of 2 units of packed red blood cells with improvement in his hemoglobin to 9.5. Chemistries show slight increase in his BUN to 37 on July 13. IMPRESSION: Upper GI bleeding. He appears to have had coffee-grounds emesis consistent with upper GI bleeding. He does have some symptomatic reflux and possibly could have erosive esophagitis. Other possible causes for his upper GI bleeding include peptic ulcer disease, arteriovenous malformations, mass lesions, and tumors. I discussed endoscopy with him including risks and benefits. He understands these and agrees to proceed. This will be arranged for later this morning. Thanks for asking me to see him. I will follow him in the hospital with you. MD TEO Monk/MEY / [phone]
--- NOTE | 2020-07-14 13:45 | P.CDIC_ITS ---
CDI Concurrent Query Service Date: 07/14/20 Documentation Clarification: Please clarify if you are treating a proba ble/suspected/likely or confirmed: Acute Blood Loss Anemia Other Anemia, please specify Provider Response: Acute Blood Loss Anemia PLEASE DO NOT DELETE/MODIFY EXISTING CONTENT Additional information is needed in order to code to the highest accuracy and appropriate Severity of Illness (SOI). Please clarify the information noted below in your progress notes and discharge summary. Risk Factors/Clinical Indicators/Treatments 64 year old male admitted with positive blood culture. COVID pneumonia previously diagnosed on 06/27/20 Blood culture contaminated Vomit coffee ground emesis and received 2 units transfusion. Per GI: upper GIB EGD with biopsy done on 07/14/20, Erosive Esophagitis H/H on 07/07/20: 12.9/38.2 H/H on 07/13/20: 7.2/22.0 CDS: Emily Santiago RN Contact Number: [phone] Please Review the information above and exercise your independent professional judgment in responding to the query. If you concur, pleas document in the PROGRESS NOTES and DISCHARGE SUMMARY. If you do not agree with the query, please document in the query above. THIS QUERY IS PART OF THE PERMANENT MEDICAL RECORD
--- NOTE | 2020-07-14 15:07 | HO.PM.IMPN ---
Subjective Subjective Date of Service: 07/14/20 Interval History: patient seen and examined at bedside patient has coffee-ground emesis yesterday denies any nausea or vomiting today Constitutional Constitutional: Reports weakness Cardiovascular Cardiovascular: Denies dyspnea Respiratory Respiratory: Denies dyspnea Gastrointestinal Gastrointestinal: Denies vomiting Neurologic Neurologic: Reports weakness Physical Exam Vital Signs: Vital Signs: Last Vital Signs Temp 98.9 F 07/14/20 12:00 Pulse 71 07/14/20 12:00 Resp 07/14/20 12:00 BP 142/67 H 07/14/20 12:00 Pulse Ox 95 07/14/20 12:00 Body Mass Index 23.6 Const: Other: Last Vital Signs Temp 98.9 F 07/14/20 12:00 Pulse 71 07/14/20 12:00 Resp 07/14/20 12:00 BP 142/67 H 07/14/20 12:00 Pulse Ox 95 07/14/20 12:00 Body Mass Index 23.6 General: comfortable, no acute distress, poor hygiene and tired appearing Orientation/consciousness: Other orientation findings ( unable to assess orientation as patient not willing to answer my questi) Eyes: General: appearance normal, both eyes and all related structures Pupils: Equal, round and reactive pupils present Resp: Effort & Inspection: normal respiratory effort and able to speak in complete sentences Auscultation: clear to auscultation bilaterally Cardio: Other: Last Vital Signs Temp 98.9 F 07/14/20 12:00 Pulse 71 07/14/20 12:00 Resp 07/14/20 12:00 BP 142/67 H 07/14/20 12:00 Pulse Ox 95 07/14/20 12:00 Body Mass Index 23.6 Rate: regular rate Rhythm: regular rhythm GI: Palpation (GI): Soft to palpation Auscultation: normal bowel sounds Skin: General skin exam: no rashes or lesions noted Neuro: Cranial nerves: Yes Equal, round and reactive pupils present Cognition (Neuro): normal cognition Extrem: General: Yes normal to inspection and Yes no pedal edema Objective Data Current Medications Generic Name Dose Route Start Last Admin Trade Name Freq PRN Reason Stop Dose Admin Acetaminophen 650 mg 07/06/20 01:54 Acetaminophen 325 Mg Tablet PO Q6H PRN Pain, Mild (Pain Scale 1-3) Atorvastatin Calcium 40 mg 07/13/20 21:00 07/13/20 21:22 Atorvastatin Calcium 40 Mg Tablet PO 40 mg BEDTIME [facility] Administration Docusate Sodium 100 mg 07/06/20 01:54 Docusate Sodium 100 Mg Capsule PO DAILY PRN Constipation Fluticasone/Vilanterol 1 puff 07/06/20 08:00 07/14/20 07:28 Fluticasone/Vilanterol 100/25 Blst.W.Dev INHALE Not Given RDAILY [facility] Insulin Human Lispro 0 unit 07/06/20 07:30 07/14/20 12:19 Insulin Lispro 100 Unit/Ml 3 Ml Vial SUBCUT Not Given QIDACHS [facility] Protocol Olanzapine 10 mg 07/08/20 21:00 07/13/20 21:23 Olanzapine Odt 10 Mg Tab.Rapdis TRANSLINGU 10 mg BEDTIME [facility] Administration Omeprazole 20 mg 07/14/20 16:30 Omeprazole 20 Mg Capsule. PO BID@0630,1630 [facility] Ondansetron HCl 4 mg 07/06/20 01:54 07/13/20 10:57 Ondansetron Hcl 4 Mg/2 Ml Vial IVPUSH 4 mg Q8H PRN Administration Nausea and Vomiting Sodium Chloride 3 ml 07/06/20 01:54 07/14/20 08:30 0.9 % Sodium Chloride Flush 3 Ml Syringe IVFLUSH Not Given QSHIFT [facility] Venlafaxine HCl 75 mg 07/06/20 09:00 07/14/20 08:30 Venlafaxine Hcl Er 75 Mg Cap.Er.24h PO Not Given DAILY [facility] Venlafaxine HCl 150 mg 07/06/20 09:00 07/14/20 08:30 Venlafaxine Hcl Er 150 Mg Cap.Er.24h PO Not Given DAILY [facility] Labs CBC & Chem 7: 07/14/20 04:52 07/13/20 09:29 Microbiology Microbiology Results: Microbiology 07/06/20 05:54 Blood - Venous Blood Culture - Final No growth after 5 days. 07/06/20 05:52 Blood - Venous Blood Culture - Final No growth after 5 days. 07/05/20 21:54 Blood - Venous Blood Culture - Final No growth after 5 days. 07/05/20 19:51 Blood - Venous Blood Culture - Final No growth after 5 days. Assessment and Plan (1) Depression: Status: Acute (2) COVID-19: Status: Acute (3) NSTEMI (non-ST elevated myocardial infarction): Status: Acute Assessment and Plan: hospital d#6 64yo M with COPD undergoing STR at SNF [[facility]] who tested positive for COVID-19 06/27/20 and was called in due to 2/2 BCx positive for GPCs but which returned as contaminant [coagulase-negative Staphylococcus severe depression with refusal to take medications or food Upper GI bleed secondary to severe esophagitis and duodenal ulcer patient developed coffee-ground emesis yesterday status post EGD today shows severe esophagitis and duodenal ulcer nonbleeding continue PPI avoid anticoagulation monitor H&H closely Acute blood loss anemia secondary to GI bleed hemoglobin dropped from 13-7.2 received 2 units of PRBC hemoglobin improved to 9 monitor H&H Severe, resistant depression Psychiatry consulted + recommends inpatient psychiatry placement for resumption/titration of olanzapine, which he was on previously but for unknown reasons was stopped in mid-May. continue venlafaxine continue olanzapine 10 mg qhs (was on 20 mg) Mildly Elevated Tn-I - 47 -> 45 -> 43 -> 36 -> 58. not ACS, but rather due to COVID-19 per Cardiology. COVID-19 PNA [previously diagnosed 06/27/20] no hypoxia patient has negative SARS CoV2 PCR x2, 24 hr apart, d/c'ed isolation precautions Bacteremia blood culture grew Staph epidermidis likely contamination vancomycin stopped COPD exacerbation [prior diagnosis] - s/p prednisone taper. continue LABA/ICS, prn TAMIE HTN continue atenolol, hydralazine DM2, A1c 9.2 continue sliding scale insulin monitor blood glucose HLD continue statin VTE ppx continue LMWH dispo will need tony-psych placement on discharge
[2020-07-14 16:20] LABS: Glucose, Whole Blood 283 mg/dL (60-115)
[2020-07-14] MEDS: Omeprazole 20 MG CAPSULE.DR PO (17:43)
[2020-07-14] MEDS: Acetaminophen 325 MG TABLET 650 MG PO (19:39)
[2020-07-14 20:44] LABS: Glucose, Whole Blood 237 mg/dL (60-115)
[2020-07-14] MEDS: Atorvastatin Calcium 40 MG TABLET PO (20:54)
[2020-07-14] MEDS: OLANZapine ODT 10 MG TAB.RAPDIS TRANSLINGU (20:59)
[2020-07-14 23:48] LABS: Hematocrit 27.5 % (42-52); Hemoglobin 9.3 g/dl (14.0-18.0)
[2020-07-15] VITALS: PULSE 88; O2SAT 94
[2020-07-15] MEDS: 0.9 % Sodium Chloride 500 ML 999 ML IVCONT (00:50)
[2020-07-15 01:30] VITALS: BP 105/64; PULSE 92; RESP 19
[2020-07-15 03:38] VITALS: BP 109/59; PULSE 90; RESP 18; TEMP 36.7; O2SAT 97
--- NOTE | 2020-07-15 05:12 | PC.NURSE ---
P: 2316 Vitals; bp 91/55, hr 113 O2 91% on room air. Rechecked vitals, bp remained 90s/50s, hr 88, O2 94% on room air. I: Dr. Fernando Palacios made aware of pt's vitals. I: MD ordered 500 NS bolus. E: Post NS bolus, bp 105/64. hr 92. Dr. Eric Palacios updated.
--- NOTE | 2020-07-15 05:19 | PC.NURSE ---
Late entry: 07/14 @ 1939 Patient's temp 101.[address] Fernando Palacios made aware. Rechecked oral temp 98.9
[2020-07-15] MEDS: Omeprazole 20 MG CAPSULE.DR PO (06:06)
[2020-07-15 07:23] VITALS: BP 132/68; PULSE 89; RESP 18; TEMP 37.1; O2SAT 93
[2020-07-15 07:32] LABS: Glucose, Whole Blood 170 mg/dL (60-115)
[2020-07-15] MEDS: Insulin Lispro 100 UNIT/ML 3 ML VIAL SUBCUT (07:49)
[2020-07-15] MEDS: Venlafaxine HCl ER 75 MG CAP.ER.24H PO (07:50)
[2020-07-15] MEDS: 0.9 % Sodium Chloride Flush 3 ML SYRINGE IVFLUSH (07:50)
[2020-07-15] MEDS: Venlafaxine HCl ER 150 MG CAP.ER.24H PO (07:50)
[2020-07-15 10:33] LABS: MANUAL DIFF FLAG NO
[2020-07-15 10:36] LABS: Basophils Percent Auto 0.1 % (0-2); Eosinophils Percent Auto 0.1 % (0-4); Hematocrit 27.8 % (42-52); Hemoglobin 9.4 g/dl (14.0-18.0); Imm Gran Abs Auto 0.11 X10*3/uL (0.00-0.03); Imm Gran Pct Auto 0.7 % (0.0-0.4); Lymphocytes Absolute Auto 1.3 X10*3/uL (1.2-4.9); Lymphocytes Percent Auto 8.8 % (20-40); Mean Corpuscular HGB Conc 33.8 g/dl (31.0-36.0); Mean Corpuscular Hemoglobin 28.8 pg (27.0-33.0); Mean Corpuscular Volume 85.3 fL (80-98); Mean Platelet Volume 8.8 fL (9.4-12.4); Monocytes Absolute Auto 1.1 X10*3/uL (0.1-1.2); Monocytes Percent Auto 7.4 % (2-11); NRBC Pct Auto 0.2 /100WBC (0.0-0.2); Neutrophils Absolute Auto 12.4 X10*3/uL (2.0-8.3); Neutrophils Percent Auto 82.9 % (45-73); Platelet Count 111 X10*3/uL (160-400); Red Blood Count 3.26 X10*6/uL (4.60-5.80); Red Cell Distribution Width 18.9 % (11.0-16.0)
[2020-07-15 11:26] LABS: Anion Gap 14 (12-20); Blood Urea Nitrogen 27 mg/dL (9-16); Carbon Dioxide 19 mmol/L (22-29); Chloride 102 mmol/L (96-108); Creatinine Clr Calc Pharmacy 65.3; Estimated Glomerular Filt Rate > 60; Glucose Random 207 mg/dL (60-115); Potassium 3.4 mmol/l (3.3-5.1); Sodium 132 mmol/L (135-145)
--- NOTE | 2020-07-15 12:44 | OP_ITS ---
SURGEON: Gamal Morales MD INDICATIONS: Upper GI bleeding. PREOPERATIVE DIAGNOSIS: POSTOPERATIVE DIAGNOSIS: PROCEDURE PERFORMED: Upper endoscopy with biopsy. ESTIMATED BLOOD LOSS: COMPLICATIONS: ANESTHESIA: ASSISTANTS: SPECIMENS: MEDICATIONS: Monitored anesthesia care. DESCRIPTION OF PROCEDURE: History and physical performed. The risks and benefits of the procedure were explained to the patient. Informed consent was obtained. The patient was placed in left lateral decubitus position. The Olympus video gastroscope was introduced into the esophagus, stomach, and duodenum. Examination was performed. The scope was removed. He tolerated the procedure well and was taken to the recovery room in stable condition. FINDINGS: Esophagus: There was erosive esophagitis present from 24 cm to 36 cm. There was no active bleeding. Stomach: The stomach showed no evidence of masses, ulcers, or lesions. Antral biopsies were obtained to rule out H pylori. Duodenum: There was duodenitis involving the bulb and an 8 mm duodenal ulcer that was clean based in the second portion with no active bleeding. IMPRESSION: 1. Erosive esophagitis. 2. Duodenitis with duodenal ulcer. RECOMMENDATIONS: 1. Avoid NSAIDs. 2. Follow H and H. 3. B.i.d. proton pump inhibitor. 4. Follow up the biopsy results. MD TEO Monk/MEY / [id number]
--- NOTE | 2020-07-15 13:27 | HO.POSTANES ---
Post Anesthesia Evaluation Post Anesthesia Evaluation Vital Signs: Vital Signs Temp Pulse Resp BP Pulse Ox 07/15/20 07:23 98.8 F 89 18 132/68 93 07/15/20 03:38 98.1 F 90 18 109/59 L 97 07/15/20 01:30 92 19 105/64 Anesthesia: Monitored Mental Status: Awake Pain Control: Satisfactory Nausea/Vomiting: None Hydration: Adequate Anesthesia-Related Issues: No Anes. Related Issues
--- NOTE | 2020-07-15 14:08 | PC.NURSE ---
Addendum entered by Lisset Feliciano RN 07/15/20 18:21: 1620- Pt still refusing POC, vitals, meds, dinner. Dr. Mo made aware. 1730- Pt incontinent, refusing staff to change his linen and wash him up. Nursing Communications Professional in room to assist with hygiene, bedding and gown changed. POC obtained, 184. Pt refusing insulin. Will continue to monitor. Original Note: 1245- Pt refusing all care at this time. Pt won't let staff check 1130 POC, multiple attempts given. Pt also refusing to eat, hygiene, ambulating, etc. Dr. Mo aware. Will continue to monitor.
--- NOTE | 2020-07-15 17:05 | HO.PM.IMPN ---
Subjective Subjective Date of Service: 07/14/20 Interval History: patient seen and examined at bedside denies any nausea or vomiting today Constitutional Constitutional: Reports weakness Cardiovascular Cardiovascular: Denies dyspnea Respiratory Respiratory: Denies dyspnea Gastrointestinal Gastrointestinal: Denies vomiting Neurologic Neurologic: Reports weakness Physical Exam Vital Signs: Vital Signs: Last Vital Signs Temp 98.9 F 07/14/20 12:00 Pulse 71 07/14/20 12:00 Resp 07/14/20 12:00 BP 142/67 H 07/14/20 12:00 Pulse Ox 95 07/14/20 12:00 Body Mass Index 23.6 Const: Other: Last Vital Signs Temp 98.9 F 07/14/20 12:00 Pulse 71 07/14/20 12:00 Resp 07/14/20 12:00 BP 142/67 H 07/14/20 12:00 Pulse Ox 95 07/14/20 12:00 Body Mass Index 23.6 General: comfortable, no acute distress, poor hygiene and tired appearing Orientation/consciousness: Other orientation findings ( unable to assess orientation as patient not willing to answer my questi) Eyes: General: appearance normal, both eyes and all related structures Pupils: Equal, round and reactive pupils present Resp: Effort & Inspection: normal respiratory effort and able to speak in complete sentences Auscultation: clear to auscultation bilaterally Cardio: Other: Last Vital Signs Temp 98.9 F 07/14/20 12:00 Pulse 71 07/14/20 12:00 Resp 07/14/20 12:00 BP 142/67 H 07/14/20 12:00 Pulse Ox 95 07/14/20 12:00 Body Mass Index 23.6 Rate: regular rate Rhythm: regular rhythm GI: Palpation (GI): Soft to palpation Auscultation: normal bowel sounds Skin: General skin exam: no rashes or lesions noted Neuro: Cranial nerves: Yes Equal, round and reactive pupils present Cognition (Neuro): normal cognition Extrem: General: Yes normal to inspection and Yes no pedal edema Objective Data Current Medications Generic Name Dose Route Start Last Admin Trade Name Freq PRN Reason Stop Dose Admin Acetaminophen 650 mg 07/06/20 01:54 07/14/20 19:39 Acetaminophen 325 Mg Tablet PO 650 mg Q6H PRN Administration Pain, Mild (Pain Scale 1-3) Atorvastatin Calcium 40 mg 07/13/20 21:00 07/14/20 20:54 Atorvastatin Calcium 40 Mg Tablet PO 40 mg BEDTIME [facility] Administration Docusate Sodium 100 mg 07/06/20 01:54 Docusate Sodium 100 Mg Capsule PO DAILY PRN Constipation Fluticasone/Vilanterol 1 puff 07/06/20 08:00 07/15/20 07:56 Fluticasone/Vilanterol 100/25 Blst.W.Dev INHALE Not Given RDAILY [facility] Insulin Human Lispro 0 unit 07/06/20 07:30 07/15/20 16:54 Insulin Lispro 100 Unit/Ml 3 Ml Vial SUBCUT Not Given QIDACHS [facility] Protocol Olanzapine 10 mg 07/08/20 21:00 07/14/20 20:59 Olanzapine Odt 10 Mg Tab.Rapdis TRANSLINGU 10 mg BEDTIME [facility] Administration Omeprazole 20 mg 07/14/20 16:30 07/15/20 16:54 Omeprazole 20 Mg Capsule.Dr PO Not Given BID@0630,1630 [facility] Ondansetron HCl 4 mg 07/06/20 01:54 07/13/20 10:57 Ondansetron Hcl 4 Mg/2 Ml Vial IVPUSH 4 mg Q8H PRN Administration Nausea and Vomiting Sodium Chloride 3 ml 07/06/20 01:54 07/15/20 16:31 0.9 % Sodium Chloride Flush 3 Ml Syringe IVFLUSH Not Given QSHIFT [facility] Venlafaxine HCl 75 mg 07/06/20 09:00 07/15/20 07:50 Venlafaxine Hcl Er 75 Mg Cap.Er.24h PO 75 mg DAILY [facility] Administration Venlafaxine HCl 150 mg 07/06/20 09:00 07/15/20 07:50 Venlafaxine Hcl Er 150 Mg Cap.Er.24h PO 150 mg DAILY [facility] Administration Labs CBC & Chem 7: 07/15/20 10:24 07/15/20 10:24 Microbiology Microbiology Results: Microbiology 07/06/20 05:54 Blood - Venous Blood Culture - Final No growth after 5 days. 07/06/20 05:52 Blood - Venous Blood Culture - Final No growth after 5 days. 07/05/20 21:54 Blood - Venous Blood Culture - Final No growth after 5 days. 07/05/20 19:51 Blood - Venous Blood Culture - Final No growth after 5 days. Assessment and Plan (1) Depression: Status: Acute (2) COVID-19: Status: Acute (3) NSTEMI (non-ST elevated myocardial infarction): Status: Acute Assessment and Plan: hospital d#6 64yo M with COPD undergoing STR at SNF [[facility]] who tested positive for COVID-19 06/27/20 and was called in due to 2/2 BCx positive for GPCs but which returned as contaminant [coagulase-negative Staphylococcus severe depression with refusal to take medications or food Upper GI bleed secondary to severe esophagitis and duodenal ulcer patient developed coffee-ground emesis on 07/13/2020 status post EGD today shows severe esophagitis and duodenal ulcer nonbleeding continue PPI avoid anticoagulation monitor H&H closely Acute blood loss anemia secondary to GI bleed hemoglobin dropped from 13-7.2 received 2 units of PRBC hemoglobin improved to 9 monitor H&H Severe, resistant depression Psychiatry consulted + recommends inpatient psychiatry placement for resumption/titration of olanzapine, which he was on previously but for unknown reasons was stopped in mid-May. continue venlafaxine continue olanzapine 10 mg qhs (was on 20 mg) Mildly Elevated Tn-I - 47 -> 45 -> 43 -> 36 -> 58. not ACS, but rather due to COVID-19 per Cardiology. COVID-19 PNA [previously diagnosed 06/27/20] no hypoxia patient has negative SARS CoV2 PCR x2, 24 hr apart, d/c'ed isolation precautions Bacteremia blood culture grew Staph epidermidis likely contamination vancomycin stopped COPD exacerbation [prior diagnosis] - s/p prednisone taper. continue LABA/ICS, prn TAMIE HTN continue atenolol, hydralazine DM2, A1c 9.2 continue sliding scale insulin monitor blood glucose HLD continue statin VTE ppx continue LMWH dispo will need tony-psych placement on discharge
[2020-07-15 17:32] VITALS: BP 113/61; PULSE 88; RESP 18; TEMP 36.8; O2SAT 92
[2020-07-15 17:34] LABS: Glucose, Whole Blood 183 mg/dL (60-115)
[2020-07-15] MEDS: Atorvastatin Calcium 40 MG TABLET PO (22:04)
[2020-07-15] MEDS: OLANZapine ODT 10 MG TAB.RAPDIS TRANSLINGU (22:04)
[2020-07-16] MEDS: Omeprazole 20 MG CAPSULE.DR PO (06:05)
--- NOTE | 2020-07-16 12:30 | PC.NURSE ---
Patient refusing all care, poc's, lab draws, meals and interventions. wouldn't allow this RN to assess patient. Any questions asked of patient, he states, Leave the room .
--- NOTE | 2020-07-16 13:31 | HO.PM.IMPN ---
Subjective Subjective Date of Service: 07/16/20 Interval History: Patient seen and examined at bedside denies any nausea or vomiting today Constitutional Constitutional: Reports weakness Cardiovascular Cardiovascular: Denies dyspnea Respiratory Respiratory: Denies dyspnea Gastrointestinal Gastrointestinal: Denies vomiting Neurologic Neurologic: Reports weakness Physical Exam Eyes: General: appearance normal, both eyes and all related structures Pupils: Equal, round and reactive pupils present Resp: Effort & Inspection: normal respiratory effort and able to speak in complete sentences Auscultation: clear to auscultation bilaterally Cardio: Rate: regular rate Rhythm: regular rhythm GI: Palpation (GI): Soft to palpation Auscultation: normal bowel sounds Skin: General skin exam: no rashes or lesions noted Neuro: Cranial nerves: Yes Equal, round and reactive pupils present Cognition (Neuro): normal cognition Extrem: General: Yes normal to inspection and Yes no pedal edema Objective Data Current Medications Generic Name Dose Route Start Last Admin Trade Name Freq PRN Reason Stop Dose Admin Acetaminophen 650 mg 07/06/20 01:54 07/14/20 19:39 Acetaminophen 325 Mg Tablet PO 650 mg Q6H PRN Administration Pain, Mild (Pain Scale 1-3) Atorvastatin Calcium 40 mg 07/13/20 21:00 07/15/20 22:04 Atorvastatin Calcium 40 Mg Tablet PO 40 mg BEDTIME [facility] Administration Docusate Sodium 100 mg 07/06/20 01:54 Docusate Sodium 100 Mg Capsule PO DAILY PRN Constipation Fluticasone/Vilanterol 1 puff 07/06/20 08:00 07/16/20 07:43 Fluticasone/Vilanterol 100/25 Blst.W.Dev INHALE Not Given RDAILY [facility] Insulin Human Lispro 0 unit 07/06/20 07:30 07/16/20 12:47 Insulin Lispro 100 Unit/Ml 3 Ml Vial SUBCUT Not Given QIDACHS [facility] Protocol Olanzapine 10 mg 07/08/20 21:00 07/15/20 22:04 Olanzapine Odt 10 Mg Tab.Rapdis TRANSLINGU 10 mg BEDTIME [facility] Administration Omeprazole 20 mg 07/14/20 16:30 07/16/20 06:05 Omeprazole 20 Mg Capsule. PO 20 mg BID@0630,1630 [facility] Administration Ondansetron HCl 4 mg 07/06/20 01:54 07/13/20 10:57 Ondansetron Hcl 4 Mg/2 Ml Vial IVPUSH 4 mg Q8H PRN Administration Nausea and Vomiting Sodium Chloride 3 ml 07/06/20 01:54 07/16/20 09:13 0.9 % Sodium Chloride Flush 3 Ml Syringe IVFLUSH Not Given QSHIFT [facility] Venlafaxine HCl 75 mg 07/06/20 09:00 07/16/20 09:13 Venlafaxine Hcl Er 75 Mg Cap.Er.24h PO Not Given DAILY [facility] Venlafaxine HCl 150 mg 07/06/20 09:00 07/16/20 09:14 Venlafaxine Hcl Er 150 Mg Cap.Er.24h PO Not Given DAILY [facility] Labs CBC & Chem 7: 07/15/20 10:24 07/15/20 10:24 Microbiology Microbiology Results: Microbiology 07/06/20 05:54 Blood - Venous Blood Culture - Final No growth after 5 days. 07/06/20 05:52 Blood - Venous Blood Culture - Final No growth after 5 days. 07/05/20 21:54 Blood - Venous Blood Culture - Final No growth after 5 days. 07/05/20 19:51 Blood - Venous Blood Culture - Final No growth after 5 days. Assessment and Plan (1) Depression: Status: Acute (2) COVID-19: Status: Acute (3) NSTEMI (non-ST elevated myocardial infarction): Status: Acute Assessment and Plan: 64yo M with COPD undergoing STR at SNF [[facility]] who tested positive for COVID-19 06/27/20 and was called in due to 2/2 BCx positive for GPCs but which returned as contaminant [coagulase-negative Staphylococcus severe depression with refusal to take medications or food Upper GI bleed secondary to severe esophagitis and duodenal ulcer patient developed coffee-ground emesis on 07/13/2020 status post EGD today shows severe esophagitis and duodenal ulcer nonbleeding continue PPI avoid anticoagulation monitor H&H closely Acute blood loss anemia secondary to GI bleed hemoglobin dropped from 13-7.2 received 2 units of PRBC hemoglobin improved to 9 monitor H&H Severe, resistant depression Psychiatry consulted + recommends inpatient psychiatry placement for resumption/titration of olanzapine, which he was on previously but for unknown reasons was stopped in mid-May. continue venlafaxine continue olanzapine 10 mg qhs (was on 20 mg) Mildly Elevated Tn-I - 47 -> 45 -> 43 -> 36 -> 58. not ACS, but rather due to COVID-19 per Cardiology. COVID-19 PNA [previously diagnosed 06/27/20] no hypoxia patient has negative SARS CoV2 PCR x2, 24 hr apart, d/c'ed isolation precautions Bacteremia blood culture grew Staph epidermidis likely contamination vancomycin stopped COPD exacerbation [prior diagnosis] s/p prednisone taper. continue LABA/ICS, prn TAMIE HTN continue atenolol, hydralazine DM2, A1c 9.2 continue sliding scale insulin monitor blood glucose HLD continue statin VTE ppx continue LMWH awaiting [facility] psych placement
[2020-07-16 15:07] VITALS: BP 136/70; PULSE 92; RESP 18; TEMP 36.8; O2SAT 95
[2020-07-16] MEDS: 0.9 % Sodium Chloride Flush 3 ML SYRINGE IVFLUSH (16:17)
[2020-07-16 16:49] LABS: Glucose, Whole Blood 157 mg/dL (60-115)
[2020-07-16 18:34] VITALS: BP 167/89; PULSE 85; RESP 18; TEMP 36.6
[2020-07-16 18:51] VITALS: BP 135/66; PULSE 92; RESP 18; TEMP 37; O2SAT 93
--- NOTE | 2020-07-16 20:32 | PC.NURSE ---
pt refused to be assessed, when RN asked pt to assess him he stated leave me alone and get out of my room! will attempt to assess later.
[2020-07-16 20:45] LABS: Glucose, Whole Blood 180 mg/dL (60-115)
--- NOTE | 2020-07-17 00:15 | PC.NURSE ---
pt refused 0000 vitals and 0000 nurse assessment.
--- NOTE | 2020-07-17 04:43 | PC.NURSE ---
pt refused 0400 vitals and 0400 manager learning.
[2020-07-17 07:19] LABS: Glucose, Whole Blood 145 mg/dL (60-115)
[2020-07-17 07:57] VITALS: BP 133/65; PULSE 89; RESP 18; TEMP 37; O2SAT 95
[2020-07-17] MEDS: Omeprazole 20 MG CAPSULE.DR PO (08:21)
[2020-07-17] MEDS: Venlafaxine HCl ER 75 MG CAP.ER.24H PO (08:21)
[2020-07-17] MEDS: 0.9 % Sodium Chloride Flush 3 ML SYRINGE IVFLUSH ×2 (08:22→15:57)
[2020-07-17] MEDS: Venlafaxine HCl ER 150 MG CAP.ER.24H PO (08:22)
[2020-07-17 09:38] LABS: Basophils Percent Auto 0.2 % (0-2); Eosinophils Absolute Auto 0.1 X10*3/uL (0.0-0.4); Eosinophils Percent Auto 0.5 % (0-4); Hematocrit 29.7 % (42-52); Lymphocytes Absolute Auto 0.9 X10*3/uL (1.2-4.9); MANUAL DIFF FLAG NO; Mean Corpuscular HGB Conc 33.7 g/dl (31.0-36.0); Mean Corpuscular Hemoglobin 29.1 pg (27.0-33.0); Mean Corpuscular Volume 86.3 fL (80-98); Mean Platelet Volume 9.1 fL (9.4-12.4); Monocytes Absolute Auto 0.9 X10*3/uL (0.1-1.2); Monocytes Percent Auto 8.9 % (2-11); Neutrophils Absolute Auto 7.9 X10*3/uL (2.0-8.3); Neutrophils Percent Auto 80.4 % (45-73); Platelet Count 125 X10*3/uL (160-400); Red Blood Count 3.44 X10*6/uL (4.60-5.80); Red Cell Distribution Width 18.9 % (11.0-16.0); White Blood Count 9.8 X10*3/uL (4.8-10.8)
[2020-07-17 11:35] VITALS: BP 131/71; PULSE 92; RESP 18; TEMP 36.9; O2SAT 97
[2020-07-17 11:45] LABS: Glucose, Whole Blood 179 mg/dL (60-115)
--- NOTE | 2020-07-17 14:43 | P.PNIM_ITS ---
Subjective Subjective Date of Service: 07/17/20 Interval History: Patient seen and examined at bedside denies any nausea or vomiting today Constitutional Constitutional: Reports weakness Cardiovascular Cardiovascular: Denies dyspnea Respiratory Respiratory: Denies dyspnea Gastrointestinal Gastrointestinal: Denies vomiting Neurologic Neurologic: Reports weakness Physical Exam Vital Signs: Vital Signs: Last Vital Signs Temp 98.9 F 07/14/20 12:00 Pulse 71 07/14/20 12:00 Resp 20 07/14/20 12:00 BP 142/67 H 07/14/20 12:00 Pulse Ox 95 07/14/20 12:00 Body Mass Index 23.6 Eyes: General: appearance normal, both eyes and all related structures Pupils: Equal, round and reactive pupils present Resp: Effort & Inspection: normal respiratory effort and able to speak in complete sentences Auscultation: clear to auscultation bilaterally Cardio: Other: Last Vital Signs Temp 98.9 F 07/14/20 12:00 Pulse 71 07/14/20 12:00 Resp 20 07/14/20 12:00 BP 142/67 H 07/14/20 12:00 Pulse Ox 95 07/14/20 12:00 Body Mass Index 23.6 Rate: regular rate Rhythm: regular rhythm GI: Palpation (GI): Soft to palpation Auscultation: normal bowel sounds Skin: General skin exam: no rashes or lesions noted Neuro: Cranial nerves: Yes Equal, round and reactive pupils present Cognition (Neuro): normal cognition Extrem: General: Yes normal to inspection and Yes no pedal edema Objective Data Current Medications Generic Name Dose Route Start Last Admin Trade Name Freq PRN Reason Stop Dose Admin Acetaminophen 650 mg 07/06/20 01:54 07/14/20 19:39 Acetaminophen 325 Mg Tablet PO 650 mg Q6H PRN Administration Pain, Mild (Pain Scale 1-3) Atorvastatin Calcium 40 mg 07/13/20 21:00 07/16/20 20:45 Atorvastatin Calcium 40 Mg Tablet PO Not Given BEDTIME [facility] Docusate Sodium 100 mg 07/06/20 01:54 Docusate Sodium 100 Mg Capsule PO DAILY PRN Constipation Fluticasone/Vilanterol 1 puff 07/06/20 08:00 07/17/20 07:58 Fluticasone/Vilanterol 100/25 Blst.W.Dev INHALE Not Given RDAILY [facility] Insulin Human Lispro 0 unit 07/06/20 07:30 07/17/20 12:33 Insulin Lispro 100 Unit/Ml 3 Ml Vial SUBCUT Not Given QIDACHS [facility] Protocol Olanzapine 10 mg 07/08/20 21:00 07/16/20 20:46 Olanzapine Odt 10 Mg Tab.Rapdis TRANSLINGU Not Given BEDTIME [facility] Omeprazole 20 mg 07/14/20 16:30 07/17/20 08:21 Omeprazole 20 Mg Capsule. PO 20 mg BID@0630,3110 [facility] Administration Ondansetron HCl 4 mg 07/06/20 01:54 07/13/20 10:57 Ondansetron Hcl 4 Mg/2 Ml Vial IVPUSH 4 mg Q8H PRN Administration Nausea and Vomiting Sodium Chloride 3 ml 07/06/20 01:54 07/17/20 08:22 0.9 % Sodium Chloride Flush 3 Ml Syringe IVFLUSH 3 ml QSHIFT [facility] Administration Venlafaxine HCl 75 mg 07/06/20 09:00 07/17/20 08:21 Venlafaxine Hcl Er 75 Mg Cap.Er.24h PO 75 mg DAILY RASHI Administration Venlafaxine HCl 150 mg 07/06/20 09:00 07/17/20 08:22 Venlafaxine Hcl Er 150 Mg Cap.Er.24h PO 150 mg DAILY RASHI Administration Labs CBC & Chem 7: 07/17/20 09:21 07/15/20 10:24 Microbiology Microbiology Results: Microbiology 07/06/20 05:54 Blood - Venous Blood Culture - Final No growth after 5 days. 07/06/20 05:52 Blood - Venous Blood Culture - Final No growth after 5 days. 07/05/20 21:54 Blood - Venous Blood Culture - Final No growth after 5 days. 07/05/20 19:51 Blood - Venous Blood Culture - Final No growth after 5 days. Assessment and Plan (1) Depression: Status: Acute (2) COVID-19: Status: Acute (3) NSTEMI (non-ST elevated myocardial infarction): Status: Acute Assessment and Plan: 64yo M with COPD undergoing STR at [facility] [[facility] [place]] who tested positive for COVID-19 06/27/20 and was called in due to 2/2 BCx positive for GPCs but which returned as contaminant [coagulase-negative Staphylococcus severe depression with refusal to take medications or food Upper GI bleed secondary to severe esophagitis and duodenal ulcer patient developed coffee-ground emesis on 07/13/2020 status post EGD today shows severe esophagitis and duodenal ulcer nonbleeding continue PPI avoid anticoagulation monitor H&H closely Acute blood loss anemia secondary to GI bleed hemoglobin dropped from 13-7.2 received 2 units of PRBC hemoglobin improved to 9 and remained stable monitor H&H Severe, resistant depression Psychiatry consulted + recommends inpatient psychiatry placement for resumption/titration of olanzapine, which he was on previously but for unknown reasons was stopped in mid-May. continue venlafaxine continue olanzapine 10 mg qhs (was on 20 mg) Mildly Elevated Tn-I - 47 -> 45 -> 43 -> 36 -> 58. not ACS, but rather due to COVID-19 per Cardiology. COVID-19 PNA [previously diagnosed 06/27/20] no hypoxia patient has negative SARS CoV2 PCR x2, 24 hr apart, d/c'ed isolation precautions Bacteremia blood culture grew Staph epidermidis likely contamination vancomycin stopped COPD exacerbation [prior diagnosis] s/p prednisone taper. continue LABA/ICS, prn TAMIE HTN continue atenolol, hydralazine DM2, A1c 9.2 continue sliding scale insulin monitor blood glucose HLD continue statin VTE ppx continue LMWH patient is seen by N awaiting [facility] placement
[2020-07-17 15:24] VITALS: BP 136/75; PULSE 93; RESP 18; TEMP 37.1; O2SAT 96
[2020-07-17 16:44] LABS: Glucose, Whole Blood 219 mg/dL (60-115)
[2020-07-17 19:06] VITALS: BP 145/76; PULSE 92; RESP 18; TEMP 36.6; O2SAT 96
[2020-07-17 20:28] LABS: Glucose, Whole Blood 163 mg/dL (60-115)
[2020-07-17] MEDS: OLANZapine ODT 10 MG TAB.RAPDIS TRANSLINGU (22:00)
[2020-07-18] VITALS (8 sets, daily range): BP systolic 125–158; BP diastolic 62–85; PULSE 85–104; RESP 16–18; TEMP 36.6–37.2; O2SAT 92–98
[2020-07-18] MEDS: 0.9 % Sodium Chloride Flush 3 ML SYRINGE IVFLUSH ×3 (00:37→17:01)
[2020-07-18] MEDS: Fluticasone/Vilanterol 100/25 BLST.W.DEV 1 PUFF INHALE (07:30)
[2020-07-18 08:07] LABS: Glucose, Whole Blood 165 mg/dL (60-115)
[2020-07-18] MEDS: Venlafaxine HCl ER 150 MG CAP.ER.24H PO (09:54)
[2020-07-18] MEDS: Venlafaxine HCl ER 75 MG CAP.ER.24H PO (09:54)
[2020-07-18 11:12] LABS: Glucose, Whole Blood 194 mg/dL (60-115)
--- NOTE | 2020-07-18 11:45 | MHC.CM.PN ---
Addendum entered by Tiffany Farooq [facility] 07/18/20 12:36: note: Pt evaluated by CARE team on 07/07 and found to need GeriPsych which a bedsearch was done daily. On 07/13 the bedsearch had to be stopped due to pt was diagnosed with a GI bleed. Today pt was medically cleared and CARE team was re-consulted. CARE team went to meet with pt and he presents as confused and stated he has no memory of why he is here and what has happened. Prior to t/w arrival pt told his nurse his was and was on the tv . When t/w made inquiry about pts he admitted to speaking with her this am. Pt then described how he was at a friends house this morning and they all left to go snowplowing...when I sat down and could't get up when someone helped me . Pt was unable to finish his thought. Pt presents with confusion and irritable affect. Pt to be consulted by Psych GLASS INSTALLER again due to concern about medication adherence due to acute medical issue (recent GI bleed) and now increased confusion. Pt can be re-evaluated by the CARE team after this GLASS INSTALLER consult and coordinate with CM for SNF or continue a GeriPsych bedsearch if needed. Original Note: Care Team stopped [facility] bed search on 07/13/20 d/t suspected GIB and therefor Patient was no longer medically cleared for dc. has put in another order for BHN consult today so that bed search can be initiated again. CM will follow for dc planning and possible need to adjust the plan.
--- NOTE | 2020-07-18 13:58 | PM.PSYCN ---
History of Present Illness Date of Service: 07/18/2020 Chief Complaint: covid+ abnormal labs/BACTEREMIA HPI Narrative: Chart reviewed, including previous psychiatry consult Request to see patient today based on worsening confusion/?delirium Pt reporting earlier that he believed his was and that he was seeing her on the TV. When seen by this conventional underwriter patient oriented to person and place only. Providing vague answers. Stated he was better than I was this morning , when asked what happened this morning, he replied, I don't know I can't remember . When asked if there was anything he was concerned about he replied, just the things that were happening in my head . He then recounted how he believed his was and how he believed he saw her on the TV. At time of interview recognized that it was not real and was distressed by these thoughts. Denies any other or VH Past Psychiatric History: Several years of psychotropic medication use-Venlafaxine/Olanzapine Review of Systems Constitutional: Reports weakness Reports system reviewed and no additional complaints, except as documented, Reports as per HPI and Reports weakness [facility] Medical History COPD (chronic obstructive pulmonary disease) CVA (cerebral vascular accident) Diabetes mellitus type 1 Dizziness Hypertension Surgical History History of percutaneous coronary intervention Family History: no Social History: , one son, worked with [employer] for 17 years, several positions Trauma History: loss of his mother Diagnostics Vital Signs (24Hr): Vital Signs - 24 hr 07/17/20 15:24 07/17/20 19:06 07/18/20 00:00 Temperature 98.8 F 97.9 F 98.6 F Pulse Rate 93 92 96 Respiratory Rate 18 18 18 Blood Pressure 136/75 145/76 H 125/62 Pulse Oximetry 96 96 92 07/18/20 03:39 07/18/20 07:22 07/18/20 07:31 Temperature 99.0 F 98.5 F Pulse Rate 97 100 104 H Respiratory Rate 18 18 Blood Pressure 137/71 147/69 H Pulse Oximetry 95 96 07/18/20 11:25 Temperature 97.9 F Pulse Rate 90 Respiratory Rate 16 Blood Pressure 129/75 Pulse Oximetry 98 Body Mass Index 23.6 Labs Results: 07/17/20 09:21 07/15/20 10:24 Labs: Laboratory Results - last 48 hr 07/13/20 07/16/20 07/16/20 17:56 16:43 20:41 WBC RBC Hgb Hct MCV MCH MCHC RDW Plt Count MPV Immature Gran % (Auto) Neut % (Auto) Lymph % (Auto) [place] % (Auto) Eos % (Auto) Baso % (Auto) Lymph # (Auto) [place] # (Auto) Eos # (Auto) Baso # (Auto) Abs Immat Gran (auto) Absolute Neuts (auto) Absolute Nucleated RBC Nucleated RBC % (auto) POC Glucose 157 H 180 H Crossmatch See Detail 07/17/20 07/17/20 07/17/20 07:15 09:21 11:33 WBC 9.8 RBC 3.44 L Hgb 10.0 L Hct 29.7 L MCV 86.3 MCH 29.1 MCHC 33.7 RDW 18.9 H Plt Count 125 L MPV 9.1 L Immature Gran % (Auto) 1.0 H Neut % (Auto) 80.4 H Lymph % (Auto) 9.0 L [place] % (Auto) 8.9 Eos % (Auto) 0.5 Baso % (Auto) 0.2 Lymph # (Auto) 0.9 L [place] # (Auto) 0.9 Eos # (Auto) 0.1 Baso # (Auto) 0.0 Abs Immat Gran (auto) 0.10 H Absolute Neuts (auto) 7.9 Absolute Nucleated RBC 0.000 Nucleated RBC % (auto) 0.0 POC Glucose 145 H 179 H Crossmatch 07/17/20 07/17/20 07/18/20 16:40 20:25 07:24 WBC RBC Hgb Hct MCV MCH MCHC RDW Plt Count MPV Immature Gran % (Auto) Neut % (Auto) Lymph % (Auto) [place] % (Auto) Eos % (Auto) Baso % (Auto) Lymph # (Auto) [place] # (Auto) Eos # (Auto) Baso # (Auto) Abs Immat Gran (auto) Absolute Neuts (auto) Absolute Nucleated RBC Nucleated RBC % (auto) POC Glucose 219 H 163 H 165 H Crossmatch 07/18/20 11:05 WBC RBC Hgb Hct MCV MCH MCHC RDW Plt Count MPV Immature Gran % (Auto) Neut % (Auto) Lymph % (Auto) [place] % (Auto) Eos % (Auto) Baso % (Auto) Lymph # (Auto) [place] # (Auto) Eos # (Auto) Baso # (Auto) Abs Immat Gran (auto) Absolute Neuts (auto) Absolute Nucleated RBC Nucleated RBC % (auto) POC Glucose 194 H Crossmatch Imaging Radiology Impressions: ITS Impressions Venous Duplex 07/06/20 00:00 IMPRESSION: No DVT demonstrated in the bilateral lower extremity. KUB X-Ray 07/13/20 00:00 IMPRESSION: No evidence of bowel obstruction. Mental Status Exam Mental Status Exam Patient Appearance: Appropriate Patient Orientation: Person and Place Level of Consciousness: Awake and Alert Patient Behavior: Appropriate and Cooperative Mood Description: Anxious and Apprehensive Affect Description: Anxious, Blunted and Apprehensive Speech Pattern: Clear Thought Process: Disoriented and Rumination Thought Content: positive for Disoriented and positive for [place] Judgement: Fair Medications Medications Current Medications Generic Name Dose Route Start Last Admin Trade Name Freq PRN Reason Stop Dose Admin Acetaminophen 650 mg 07/06/20 01:54 07/14/20 19:39 Acetaminophen 325 Mg Tablet PO 650 mg Q6H PRN Administration Pain, Mild (Pain Scale 1-3) Atorvastatin Calcium 40 mg 07/13/20 21:00 07/17/20 22:02 Atorvastatin Calcium 40 Mg Tablet PO Not Given BEDTIME [facility] Docusate Sodium 100 mg 07/06/20 01:54 Docusate Sodium 100 Mg Capsule PO DAILY PRN Constipation Fluticasone/Vilanterol 1 puff 07/06/20 08:00 07/18/20 07:30 Fluticasone/Vilanterol 100/25 Blst.W.Dev INHALE 1 puff RDAILY [facility] Administration Insulin Human Lispro 0 unit 07/06/20 07:30 07/18/20 09:02 Insulin Lispro 100 Unit/Ml 3 Ml Vial SUBCUT Not Given QIDACHS [facility] Protocol Olanzapine 10 mg 07/08/20 21:00 07/17/20 22:00 Olanzapine Odt 10 Mg Tab.Rapdis TRANSLINGU 10 mg BEDTIME [facility] Administration Omeprazole 20 mg 07/14/20 16:30 07/18/20 05:45 Omeprazole 20 Mg Capsule. PO Not Given BID@0072,3660 [facility] Ondansetron HCl 4 mg 07/06/20 01:54 07/13/20 10:57 Ondansetron Hcl 4 Mg/2 Ml Vial IVPUSH 4 mg Q8H PRN Administration Nausea and Vomiting Sodium Chloride 3 ml 07/06/20 01:54 07/18/20 09:57 0.9 % Sodium Chloride Flush 3 Ml Syringe IVFLUSH 3 ml QSHIFT RASHI Administration Venlafaxine HCl 75 mg 07/06/20 09:00 07/18/20 09:54 Venlafaxine Hcl Er 75 Mg Cap.Er.24h PO 75 mg DAILY RASHI Administration Venlafaxine HCl 150 mg 07/06/20 09:00 07/18/20 09:54 Venlafaxine Hcl Er 150 Mg Cap.Er.24h PO 150 mg DAILY RASHI Administration Allergies Allergies Allergy/AdvReac Type Severity Reaction Status Date / Time No Known Allergies Allergy Unknown NKA Verified 07/05/20 17:17 Assessment & Plan Assessment & Plan (1) Depression: Status: Acute Code(s): F32.9 - Major depressive disorder, single episode, unspecified Recommendations: ?delirium check for UTI continue to monitor if mental status continues to change or decompensate, consider head CT or neuro consult no change to Olanzapine dose at this time Greater than 50% of the session was spent on counseling and/or coordination of care
--- NOTE | 2020-07-18 15:37 | MHC.CARE ---
CARE Team speaks with Lisbet Garcia APRN regarding recommendations for pt's care. It is still unclear if [facility]-psych bedsearch will be appropriate, and CARE Team will continue to be available for assistance and follow this case.
--- NOTE | 2020-07-18 15:41 | P.PNIM_ITS ---
Subjective Subjective Date of Service: 07/18/20 Interval History: patient sitting comfortably in bed offers no acute complaints, no acute issues overnight, later notified by nurse that patient mentioned that his was and that he was seeing her on the TV, Patient re-evaluated again in the afternoon and he repeated the same thoughts but he did recognize that it was not real and felt concerned about these thoughts. 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 Physical Exam Vital Signs: Vital Signs: Last Vital Signs Temp 97.9 F 07/18/20 15:25 Pulse 85 07/18/20 15:25 Resp 18 07/18/20 15:25 BP 158/85 H 07/18/20 15:25 Pulse Ox 95 07/18/20 15:25 Body Mass Index 23.6 General patient resting comfortably in no acute distress. Neck supple no JVD. CVS regular rate rhythm, Respiratory lungs clear to auscultation, no respiratory distress Gastrointestinal abdomen soft, nontender, bowel sounds audible Extremities no clubbing cyanosis or edema. Skin no rash Objective Data Current Medications Generic Name Dose Route Start Last Admin Trade Name Freq PRN Reason Stop Dose Admin Acetaminophen 650 mg 07/06/20 01:54 07/14/20 19:39 Acetaminophen 325 Mg Tablet PO 650 mg Q6H PRN Administration Pain, Mild (Pain Scale 1-3) Atorvastatin Calcium 40 mg 07/13/20 21:00 07/17/20 22:02 Atorvastatin Calcium 40 Mg Tablet PO Not Given BEDTIME [facility] Docusate Sodium 100 mg 07/06/20 01:54 Docusate Sodium 100 Mg Capsule PO DAILY PRN Constipation Fluticasone/Vilanterol 1 puff 07/06/20 08:00 07/18/20 07:30 Fluticasone/Vilanterol 100/25 Blst.W.Dev INHALE 1 puff RDAILY RASHI Administration Insulin Human Lispro 0 unit 07/06/20 07:30 07/18/20 09:02 Insulin Lispro 100 Unit/Ml 3 Ml Vial SUBCUT Not Given QIDACHS [facility] Protocol Olanzapine 10 mg 07/08/20 21:00 07/17/20 22:00 Olanzapine Odt 10 Mg Tab.Rapdis TRANSLINGU 10 mg BEDTIME [facility] Administration Omeprazole 20 mg 07/14/20 16:30 07/18/20 05:45 Omeprazole 20 Mg Capsule. PO Not Given BID@2400,9449 [facility] Ondansetron HCl 4 mg 07/06/20 01:54 07/13/20 10:57 Ondansetron Hcl 4 Mg/2 Ml Vial IVPUSH 4 mg Q8H PRN Administration Nausea and Vomiting Sodium Chloride 3 ml 07/06/20 01:54 07/18/20 09:57 0.9 % Sodium Chloride Flush 3 Ml Syringe IVFLUSH 3 ml QSHIFT [facility]I Administration Venlafaxine HCl 75 mg 07/06/20 09:00 07/18/20 09:54 Venlafaxine Hcl Er 75 Mg Cap.Er.24h PO 75 mg DAILY RASHI Administration Venlafaxine HCl 150 mg 07/06/20 09:00 07/18/20 09:54 Venlafaxine Hcl Er 150 Mg Cap.Er.24h PO 150 mg DAILY RASHI Administration Labs CBC & Chem 7: 07/17/20 09:21 07/15/20 10:24 Microbiology Microbiology Results: Microbiology 07/06/20 05:54 Blood - Venous Blood Culture - Final No growth after 5 days. 07/06/20 05:52 Blood - Venous Blood Culture - Final No growth after 5 days. 07/05/20 21:54 Blood - Venous Blood Culture - Final No growth after 5 days. 07/05/20 19:51 Blood - Venous Blood Culture - Final No growth after 5 days. Assessment and Plan (1) COVID-19: Status: Acute (2) Depression: Status: Acute (3) Weakness: Status: Acute Assessment and Plan: 64yo M with COPD undergoing STR at [facility] [[facility] [place] who tested positive for COVID-19 06/27/20 and was called in due to 2/2 BCx positive for GPCs but which returned as contaminant [coagulase-negative Staphylococcus severe depression with refusal to take medications or food Upper GI bleed secondary to severe esophagitis and duodenal ulcer patient developed coffee-ground emesis on 07/13/2020, status post EGD 07/17/20 that shows severe esophagitis and duodenal ulcer nonbleeding continue PPI, avoid anticoagulation, repeat hematocrit stable Acute blood loss anemia secondary to GI bleed s/p 2 units of PRBC repeat hematocrit remains stable Severe, resistant depression Psychiatry consulted they recommend inpatient psychiatry placement for resumption/titration of olanzapine, which he was on previously but for unknown reasons was stopped in mid-May. continue venlafaxine and olanzapine 10 mg qhs (was on 20 mg) acute encephalopathy patient noted to be confused mention that his is and he saw her on TV this a.m. patient otherwise is aware of place and person answering questions appropriately, will check urinalysis recent CT head is negative, not noted to have any new neurological deficit will check electrolytes, continue current psyche meds, patient re-evaluated by Lisbet Garcia she recommend to rule out i nfection and to monitor mental status closely and recommend no change in psychiatric medication. Likely symptoms related to advanced dementia/delirium Mildly Elevated Tn-I Likely related to COVID-19 infection COVID-19 PNA [previously diagnosed 06/27/20] no hypoxia, repeat SARS CoV2 PCR x2, is negative, 24 hr apart, no further isolation precautions. Bacteremia blood culture grew Staph epidermidis likely contamination COPD exacerbation [prior diagnosis] s/p prednisone taper. continue LABA HTN noted to have intermittent high readings not on any blood pressure medication at home take atenolol 100 mg daily, and hydralazine 25 mg b.i.d., will add atenolol 50 mg daily and adjust BP meds DM2, A1c 9.2 on sliding scale insulin at home takes glipizide 10 mg b.i.d. will add glipizide low-dose HLD continue Lipitor 40 mg at bedtime VTE ppx continue LMWH disposition need [facility] placement.
[2020-07-18] MEDS: Omeprazole 20 MG CAPSULE.DR PO (17:06)
[2020-07-18 17:07] LABS: Glucose, Whole Blood 153 mg/dL (60-115)
[2020-07-19] VITALS (7 sets, daily range): BP systolic 127–147; BP diastolic 66–82; PULSE 82–88; RESP 18; TEMP 36.6–37.2; O2SAT 93–98
[2020-07-19] MEDS: 0.9 % Sodium Chloride Flush 3 ML SYRINGE IVFLUSH ×2 (00:47→17:17)
--- NOTE | 2020-07-19 05:56 | PC.NURSE ---
Alert and oriented to person and place at 2300 but observed to have confusion when he woke up at the middle of the night I wanted to go down stairs. Re-oriented to hospital environment but he did not believed it. He refused dinner and meds yesterday, still refused to eat after several encouragement. Patient refused blood works this AM also. Remained incontinent of urine, [place] catheter replaced and complete bed change done. He looked depressed and no interest of doing anything. Will continue care plan.
[2020-07-19 07:17] LABS: Glucose, Whole Blood 128 mg/dL (60-115)
--- NOTE | 2020-07-19 10:44 | MHC.CARE ---
CARE can be consulted when urine screen completed per [facility] [place] recc of r/o UTI. Pt was asleep when t/w attempted to check in at 1030. Updated CM [place] of dispo pending above items and when pt can be assessed due to new onset of confusion as of 07/18. CARE team can be reached at [phone] option1.
--- NOTE | 2020-07-19 11:10 | MHC.CM.PN ---
Per ROUNDS discussion, MD describes Patient's confusion, as part of his Psychosis and Depression. MD stated that there is no indication of infection and therefor Patient is medically cleared for dc to [facility].CM has relayed this information to Care Team and requested that Care Team speak directly with MD. CM will continue to follow for dc planning.
[2020-07-19 11:19] LABS: Glucose, Whole Blood 131 mg/dL (60-115)
[2020-07-19 12:04] LABS: Basophils Percent Auto 0.3 % (0-2); Eosinophils Absolute Auto 0.1 X10*3/uL (0.0-0.4); Eosinophils Percent Auto 1.1 % (0-4); Hematocrit 31.1 % (42-52); Hemoglobin 10.4 g/dl (14.0-18.0); Imm Gran Abs Auto 0.11 X10*3/uL (0.00-0.03); Imm Gran Pct Auto 1.5 % (0.0-0.4); Lymphocytes Absolute Auto 1.1 X10*3/uL (1.2-4.9); Lymphocytes Percent Auto 15.4 % (20-40); MANUAL DIFF FLAG NO; Mean Corpuscular HGB Conc 33.4 g/dl (31.0-36.0); Mean Corpuscular Hemoglobin 28.7 pg (27.0-33.0); Mean Corpuscular Volume 85.9 fL (80-98); Mean Platelet Volume 8.8 fL (9.4-12.4); Monocytes Absolute Auto 0.8 X10*3/uL (0.1-1.2); Monocytes Percent Auto 11.6 % (2-11); Neutrophils Percent Auto 70.1 % (45-73); Platelet Count 171 X10*3/uL (160-400); Red Blood Count 3.62 X10*6/uL (4.60-5.80); Red Cell Distribution Width 18.2 % (11.0-16.0); White Blood Count 7.1 X10*3/uL (4.8-10.8)
[2020-07-19] MEDS: Venlafaxine HCl ER 75 MG CAP.ER.24H PO (12:19)
[2020-07-19] MEDS: Venlafaxine HCl ER 150 MG CAP.ER.24H PO (12:20)
[2020-07-19 12:35] LABS: Anion Gap 17 (12-20); Blood Urea Nitrogen 7 mg/dL (9-16); Carbon Dioxide 22 mmol/L (22-29); Chloride 100 mmol/L (96-108); Creatinine Clr Calc Pharmacy 101.3; Estimated Glomerular Filt Rate > 60; Glucose Random 128 mg/dL (60-115); Potassium 3.3 mmol/l (3.3-5.1); Sodium 136 mmol/L (135-145)
--- NOTE | 2020-07-19 13:38 | MHC.CM.PN ---
CM has updated the original referral that was made to [facility] and will continue to follow for dc planning.
--- NOTE | 2020-07-19 13:43 | P.PNIM_ITS ---
Subjective Subjective Date of Service: 07/19/20 Interval History: patient resting in bed comfortably, requesting to be left alone, denying any symptoms of headache dizziness pain, when asked why is he refusing medications he said he does not know, patient speech is clear. Review of Systems General no headache , no dizziness no fever chills. CVS no chest pain, no palpitation. Respiratory no cough, no shortness of breath. Gastrointestinal no nausea, no vomiting, no abdominal pain patient is saying no to all questions Physical Exam Vital Signs: Vital Signs: Last Vital Signs Temp 98.2 F 07/19/20 12:00 Pulse 84 07/19/20 12:00 Resp 18 07/19/20 12:00 BP 127/73 07/19/20 12:00 Pulse Ox 93 07/19/20 12:00 Body Mass Index 23.6 General patient resting in bed, in no acute distress. Neck is supple no JVD. CVS regular rate rhythm, Respiratory lungs clear , no respiratory distress Gastrointestinal abdomen soft, nontender, bowel sounds audible Extremities edema. Neuro nonfocal , moving all 4 extremity, speech clear. Skin no rash Objective Data Current Medications Generic Name Dose Route Start Last Admin Trade Name Freq PRN Reason Stop Dose Admin Acetaminophen 650 mg 07/06/20 01:54 07/14/20 19:39 Acetaminophen 325 Mg Tablet PO 650 mg Q6H PRN Administration Pain, Mild (Pain Scale 1-3) Atenolol 50 mg 07/19/20 09:00 07/19/20 10:05 Atenolol 50 Mg Tablet PO Not Given DAILY [facility] Protocol Atorvastatin Calcium 40 mg 07/13/20 21:00 07/18/20 22:03 Atorvastatin Calcium 40 Mg Tablet PO Not Given BEDTIME [facility] Docusate Sodium 100 mg 07/06/20 01:54 Docusate Sodium 100 Mg Capsule PO DAILY PRN Constipation Enoxaparin Sodium 40 mg 07/18/20 19:00 07/18/20 19:00 Enoxaparin Sodium 40 Mg/0.4 Ml Syringe SUBCUT Not Given Q24H [facility] Fluticasone/Vilanterol 1 puff 07/06/20 08:00 07/19/20 07:41 Fluticasone/Vilanterol 100/25 Blst.W.Dev INHALE Not Given RDAILY [facility] Glipizide 5 mg 07/19/20 07:30 07/19/20 10:04 Glipizide Xl 5 Mg Tab.Er.24 PO Not Given DAILY@0730 [facility] Insulin Human Lispro 0 unit 07/06/20 07:30 07/19/20 12:20 Insulin Lispro 100 Unit/Ml 3 Ml Vial SUBCUT Not Given QIDACHS [facility] Protocol Olanzapine 10 mg 07/08/20 21:00 07/18/20 22:03 Olanzapine Odt 10 Mg Tab.Rapdis TRANSLINGU Not Given BEDTIME [facility] Omeprazole 20 mg 07/14/20 16:30 07/19/20 06:11 Omeprazole 20 Mg Capsule. PO Not Given BID@0630,1630 [facility] Ondansetron HCl 4 mg 07/06/20 01:54 07/13/20 10:57 Ondansetron Hcl 4 Mg/2 Ml Vial IVPUSH 4 mg Q8H PRN Administration Nausea and Vomiting Sodium Chloride 3 ml 07/06/20 01:54 07/19/20 10:04 0.9 % Sodium Chloride Flush 3 Ml Syringe IVFLUSH Not Given QSHIFT [facility] Venlafaxine HCl 75 mg 07/06/20 09:00 07/19/20 12:19 Venlafaxine Hcl Er 75 Mg Cap.Er.24h PO 75 mg DAILY [facility] Administration Venlafaxine HCl 150 mg 07/06/20 09:00 07/19/20 12:20 Venlafaxine Hcl Er 150 Mg Cap.Er.24h PO 150 mg DAILY [facility] Administration Labs CBC & Chem 7: 07/19/20 11:41 07/19/20 11:41 Microbiology Microbiology Results: Microbiology 07/06/20 05:54 Blood - Venous Blood Culture - Final No growth after 5 days. 07/06/20 05:52 Blood - Venous Blood Culture - Final No growth after 5 days. 07/05/20 21:54 Blood - Venous Blood Culture - Final No growth after 5 days. 07/05/20 19:51 Blood - Venous Blood Culture - Final No growth after 5 days. Assessment and Plan (1) COVID-19: Status: Acute (2) Depression: Status: Acute (3) Blood bacterial culture positive: Status: Acute (4) Failure to thrive: Status: Acute (5) Weakness: Status: Acute (6) Diabetes: Status: Acute Assessment and Plan: 64yo M with COPD undergoing STR at [facility] [[facility]] who tested positive for COVID-19 06/27/20 and was called in due to 2/2 BCx positive for GPCs but which returned as contaminant [coagulase-negative Staphylococcus Upper GI bleed secondary to severe esophagitis and duodenal ulcer patient developed coffee-ground emesis on 07/13/2020, status post EGD 07/17/20 that shows severe esophagitis and duodenal ulcer nonbleeding continue PPI, avoid anticoagulation, repeat hematocrit stable Acute blood loss anemia secondary to GI bleed s/p 2 units of PRBC repeat hematocrit remains stable Severe, resistant depression patient refusing medication also refusing tests, patient does not appear to be sick with stable vitals ,electrolytes, renal function, no fever, no chills not appear to have underlying infection. Psychiatry consulted they recommend inpatient psychiatry placement for resumption/titration of olanzapine, which he was on previously but for unknown reasons was stopped in mid-May. continue venlafaxine and olanzapine 10 mg qhs (was on 20 mg) will encourage patient to take medication acute encephalopathy Resolved, patient this a.m. answering questions appropriately, no confusion, refusing care, yesterday he mention that his is and he saw her on TV , no such thoughts this morning likely symptoms related to depression/ psychosis, no evidence of acute infection await urine testing, will avoid repeat CT head, repeat chest x-ray or abdominal films since patient has normal neuro examination and has no other GI or respiratory symptoms. Mildly Elevated Tn-I Likely related to COVID-19 infection COVID-19 PNA [previously diagnosed 06/27/20] no hypoxia, repeat SARS CoV2 PCR x2, is negative, 24 hr apart, no further isolation precautions. Bacteremia blood culture grew Staph epidermidis likely contamination COPD exacerbation [prior diagnosis] s/p prednisone taper. continue LABA , no active symptoms of shortness of breath or cough. HTN Blood pressure better controlled with resumption of atenolol 50 mg daily,at home take atenolol 100 mg daily, and hydralazine 25 mg b.i.d., DM2, A1c 9.2 blood sugar better controlled with addition of glipizide 5 mg daily, continue sliding scale insulin at home takes glipizide 10 mg b.i.d. HLD continue Lipitor 40 mg at bedtime VTE ppx continue LMWH disposition will obtain physical therapy consult
[2020-07-19 14:10] LABS: Glucose Urine UA 100 MG/DL (NEG); Leukocyte Esterase Urine NEG (NEG); Nitrite Urine NEG (NEG); Specific Gravity - Urine 1.025 (1.005-1.025); Urine Blood NEG (NEG); Urine Ketones 40 MG/DL (NEG); Urine Protein 2+ MG/DL (NEG-TRACE)
[2020-07-19 14:11] LABS: Appearance Urine CLEAR; Color Urine YELLOW
[2020-07-19 14:25] LABS: RBC Urine 0-2 /HPF (0); Squamous Epithelial Cell Urine TRACE /LPF
[2020-07-19 15:38] LABS: Glucose, Whole Blood 139 mg/dL (60-115)
[2020-07-19 20:28] LABS: Glucose, Whole Blood 131 mg/dL (60-115)
[2020-07-20] VITALS (8 sets, daily range): BP systolic 100–127; BP diastolic 51–70; PULSE 70–88; RESP 17–18; TEMP 36.4–36.8; O2SAT 90–97
--- NOTE | 2020-07-20 00:09 | PC.NURSE ---
Patient refusing bedtime medications. Attempted to educate patient on importance of medication compliance, use of medications, indications for medications and MD recommendation. Patient still refusing medication. Patient allowed to rest. Reattempted to educate patient about medication. Patient still refusing any medication at this time.
[2020-07-20 07:46] LABS: Glucose, Whole Blood 115 mg/dL (60-115)
[2020-07-20] MEDS: Fluticasone/Vilanterol 100/25 BLST.W.DEV 1 PUFF INHALE (08:13)
[2020-07-20] MEDS: Venlafaxine HCl ER 75 MG CAP.ER.24H PO (08:30)
[2020-07-20] MEDS: Venlafaxine HCl ER 150 MG CAP.ER.24H PO (08:30)
[2020-07-20] MEDS: atenoloL 50 MG TABLET PO (08:30)
[2020-07-20] MEDS: Omeprazole 20 MG CAPSULE.DR PO ×2 (08:30→16:49)
[2020-07-20] MEDS: 0.9 % Sodium Chloride Flush 3 ML SYRINGE IVFLUSH ×2 (08:31→16:49)
[2020-07-20 11:58] LABS: Glucose, Whole Blood 140 mg/dL (60-115)
--- NOTE | 2020-07-20 12:18 | MHC.CLN ---
F/U PO INTAKE 50% AVG DIET RX: CARDIAC 2GM NA- WILL ADD 1800 DM TO CURRENT DIET R/T HX DM FOLLOWING
--- NOTE | 2020-07-20 15:43 | P.PNIM_ITS ---
Subjective Subjective Date of Service: 07/20/20 Interval History: patient resting in bed awake, responding better to questions today although most of the time says I do not know,does not make eye contacts and say he will try, initially refused rehab but later ask which rehab he will go to. Review of Systems ros Patient says I do not know to almost all questions. 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 Neck supple no JVD. CVS regular rate rhythm, Respiratory lungs clear to auscultation, no respiratory distress Gastrointestinal abdomen soft, nontender, bowel sounds audible Extremities no clubbing cyanosis or edema. Neuro nonfocal , speech clear. Skin no rash Objective Data Current Medications Generic Name Dose Route Start Last Admin Trade Name Freq PRN Reason Stop Dose Admin Acetaminophen 650 mg 07/06/20 01:54 07/14/20 19:39 Acetaminophen 325 Mg Tablet PO 650 mg Q6H PRN Administration Pain, Mild (Pain Scale 1-3) Atenolol 50 mg 07/19/20 09:00 07/20/20 08:30 Atenolol 50 Mg Tablet PO 50 mg DAILY [facility] Administration Protocol Atorvastatin Calcium 40 mg 07/13/20 21:00 07/19/20 21:31 Atorvastatin Calcium 40 Mg Tablet PO Not Given BEDTIME [facility] Docusate Sodium 100 mg 07/06/20 01:54 Docusate Sodium 100 Mg Capsule PO DAILY PRN Constipation Enoxaparin Sodium 40 mg 07/18/20 19:00 07/19/20 21:29 Enoxaparin Sodium 40 Mg/0.4 Ml Syringe SUBCUT Not Given Q24H [facility] Fluticasone/Vilanterol 1 puff 07/06/20 08:00 07/20/20 08:13 Fluticasone/Vilanterol 100/25 Blst.W.Dev INHALE 1 puff RDAILY [facility] Administration Glipizide 5 mg 07/19/20 07:30 07/20/20 08:32 Glipizide Xl 5 Mg Tab.Er.24 PO Not Given DAILY@0730 [facility] Insulin Human Lispro 0 unit 07/06/20 07:30 07/20/20 12:02 Insulin Lispro 100 Unit/Ml 3 Ml Vial SUBCUT Not Given QIDACHS [facility] Protocol Olanzapine 10 mg 07/08/20 21:00 07/19/20 21:31 Olanzapine Odt 10 Mg Tab.Rapdis TRANSLINGU Not Given BEDTIME [facility] Omeprazole 20 mg 07/14/20 16:30 07/20/20 08:30 Omeprazole 20 Mg Capsule.Dr PO 20 mg BID@0630,1630 [facility] Administration Ondansetron HCl 4 mg 07/06/20 01:54 07/13/20 10:57 Ondansetron Hcl 4 Mg/2 Ml Vial IVPUSH 4 mg Q8H PRN Administration Nausea and Vomiting Sodium Chloride 3 ml 07/06/20 01:54 07/20/20 08:31 0.9 % Sodium Chloride Flush 3 Ml Syringe IVFLUSH 3 ml QSHIFT [facility] Administration Venlafaxine HCl 75 mg 07/06/20 09:00 07/20/20 08:30 Venlafaxine Hcl Er 75 Mg Cap.Er.24h PO 75 mg DAILY [facility] Administration Venlafaxine HCl 150 mg 07/06/20 09:00 07/20/20 08:30 Venlafaxine Hcl Er 150 Mg Cap.Er.24h PO 150 mg DAILY [facility] Administration Labs CBC & Chem 7: 07/19/20 11:41 07/19/20 11:41 Microbiology Microbiology Results: Microbiology 07/06/20 05:54 Blood - Venous Blood Culture - Final No growth after 5 days. 07/06/20 05:52 Blood - Venous Blood Culture - Final No growth after 5 days. 07/05/20 21:54 Blood - Venous Blood Culture - Final No growth after 5 days. 07/05/20 19:51 Blood - Venous Blood Culture - Final No growth after 5 days. Assessment and Plan (1) Diabetes: Status: Acute (2) Abnormal EKG: Status: Acute (3) COVID-19: Status: Acute (4) Depression: Status: Acute (5) Failure to thrive: Status: Acute (6) Weakness: Status: Acute Assessment and Plan: 64yo M with COPD undergoing STR at SNF [[facility]] who tested positive for COVID-19 06/27/20 and was called in due to 2/2 BCx positive for GPCs but which returned as contaminant [coagulase-negative Staphylococcus Upper GI bleed secondary to severe esophagitis and duodenal ulcer patient developed coffee-ground emesis on 07/13/2020, status post EGD 07/17/20 that shows severe esophagitis and duodenal ulcer nonbleeding, no further episodes of hematemesis or coffee-ground emesis, continue PPI, avoid anticoagulation, repeat hematocrit stable Acute blood loss anemia secondary to GI bleed s/p 2 units of PRBC repeat hematocrit remains stable Severe, resistant depression patient has better affect today taking medications, verbalizing more, patient does not appear to be sick with stable vitals ,electrolytes, renal function, no fever, no chills not appear to have underlying infection. Psychiatry consulted they recommend inpatient psychiatry placement for resumption/titration of olanzapine, which he was on previously but for unknown reasons was stopped in mid-May. continue venlafaxine and olanzapine 10 mg qhs (was on 20 mg) will continue to encourage patient to participate in care and take medications acute encephalopathy Resolved, patient this a.m. answering questions appropriately, no confusion, more receptive, no delusions, no hallucination no evidence of acute infection, UA negative, prior negative CT head, chest x- ray and abdominal films . Mildly Elevated Tn-I Likely related to COVID-19 infection COVID-19 PNA [previously diagnosed 06/27/20] no hypoxia, repeat SARS CoV2 PCR x2, is negative, 24 hr apart, no further isolation precautions. Bacteremia blood culture grew Staph epidermidis likely contamination. COPD exacerbation [prior diagnosis] s/p prednisone taper. continue LABA , no a ctive symptoms of shortness of breath or cough. HTN Blood pressure better controlled with resumption of atenolol 50 mg daily,at home take atenolol 100 mg daily, and hydralazine 25 mg b.i.d., DM2, A1c 9.2 blood sugar better controlled with addition of glipizide 5 mg daily, continue sliding scale insulin at home takes glipizide 10 mg b.i.d. HLD continue Lipitor 40 mg at bedtime VTE ppx continue LMWH Disposition patient evaluated by Physical therapy he participated this morning PT recommend short-term rehab versus home with [facility]. social service technician arranging for safe discharge.
[2020-07-20 16:14] LABS: Glucose, Whole Blood 200 mg/dL (60-115)
[2020-07-20] MEDS: Insulin Lispro 100 UNIT/ML 3 ML VIAL SUBCUT (16:50)
[2020-07-20 20:34] LABS: Glucose, Whole Blood 107 mg/dL (60-115)
[2020-07-20] MEDS: Atorvastatin Calcium 40 MG TABLET PO (21:33)
[2020-07-20] MEDS: OLANZapine ODT 10 MG TAB.RAPDIS TRANSLINGU (21:33)
[2020-07-21] MEDS: 0.9 % Sodium Chloride Flush 3 ML SYRINGE IVFLUSH ×3 (00:55→16:25)
[2020-07-21 07:52] VITALS: BP 126/63; PULSE 82; RESP 20; TEMP 36.9; O2SAT 92
[2020-07-21 08:03] LABS: Glucose, Whole Blood 118 mg/dL (60-115)
--- NOTE | 2020-07-21 09:32 | MHC.CM.PN ---
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 It appeared like [facility] was going to be able to accept Patient back, but now it appears that [facility] is the only available bed in the [facility] facilities. Savana has asked that a broader search be done to attempt to find a bed closer to home.[facility] has initiated a broad SNF search and will continue to follow for dc planning. is aware.
[2020-07-21] MEDS: Venlafaxine HCl ER 75 MG CAP.ER.24H PO (09:48)
[2020-07-21] MEDS: atenoloL 50 MG TABLET PO (09:48)
[2020-07-21] MEDS: glipiZIDE XL 5 MG TAB.ER.24 PO (09:48)
[2020-07-21] MEDS: Venlafaxine HCl ER 150 MG CAP.ER.24H PO (09:48)
[2020-07-21] MEDS: Omeprazole 20 MG CAPSULE.DR PO (09:48)
[2020-07-21] MEDS: Fluticasone/Vilanterol 100/25 BLST.W.DEV 1 PUFF INHALE (10:18)
[2020-07-21 10:22] VITALS: PULSE 75; O2SAT 94
[2020-07-21 11:32] LABS: Glucose, Whole Blood 174 mg/dL (60-115)
[2020-07-21 11:49] VITALS: BP 127/65; PULSE 68; RESP 18; TEMP 36.8; O2SAT 95
--- NOTE | 2020-07-21 13:49 | HO.PM.IMPN ---
Subjective Subjective Date of Service: 07/21/20 Interval History: Patient not cooperative this morning, answering I do not know to all questions, not making eye contact, no acute issues overnight. Review of Systems Review of systems patient is saying no to all questions Physical Exam Vital Signs: Vital Signs: Last Vital Signs Temp 98.3 F 07/21/20 11:49 Pulse 68 07/21/20 11:49 Resp 18 07/21/20 11:49 BP 127/65 07/21/20 11:49 Pulse Ox 95 07/21/20 11:49 Body Mass Index 23.6 General patient resting comfortably,no acute distress, poorly kept with long hair and nails, appears frail. Neck supple no JVD. CVS regular rate rhythm, Respiratory lungs clear to auscultation, no respiratory distress Gastrointestinal abdomen soft, nontender, bowel sounds audible. Extremities no clubbing ,cyanosis or edema. Neuro nonfocal , speech clear. Skin no rash Objective Data Current Medications Generic Name Dose Route Start Last Admin Trade Name Freq PRN Reason Stop Dose Admin Acetaminophen 650 mg 07/06/20 01:54 07/14/20 19:39 Acetaminophen 325 Mg Tablet PO 650 mg Q6H PRN Administration Pain, Mild (Pain Scale 1-3) Atenolol 50 mg 07/19/20 09:00 07/21/20 09:48 Atenolol 50 Mg Tablet PO 50 mg DAILY [facility] Administration Protocol Atorvastatin Calcium 40 mg 07/13/20 21:00 07/20/20 21:33 Atorvastatin Calcium 40 Mg Tablet PO 40 mg BEDTIME [facility] Administration Docusate Sodium 100 mg 07/06/20 01:54 Docusate Sodium 100 Mg Capsule PO DAILY PRN Constipation Enoxaparin Sodium 40 mg 07/18/20 19:00 07/20/20 18:44 Enoxaparin Sodium 40 Mg/0.4 Ml Syringe SUBCUT Not Given Q24H [facility] Fluticasone/Vilanterol 1 puff 07/06/20 08:00 07/21/20 10:18 Fluticasone/Vilanterol 100/25 Blst.W.Dev INHALE 1 puff RDAILY [facility] Administration Glipizide 5 mg 07/19/20 07:30 07/21/20 09:48 Glipizide Xl 5 Mg Tab.Er.24 PO 5 mg DAILY@0730 [facility] Administration Insulin Human Lispro 0 unit 07/06/20 07:30 07/21/20 12:47 Insulin Lispro 100 Unit/Ml 3 Ml Vial SUBCUT Not Given QIDACHS [facility] Protocol Olanzapine 10 mg 07/08/20 21:00 07/20/20 21:33 Olanzapine Odt 10 Mg Tab.Rapdis TRANSLINGU 10 mg BEDTIME [facility] Administration Omeprazole 20 mg 07/14/20 16:30 07/21/20 09:48 Omeprazole 20 Mg Capsule. PO 20 mg BID@0683,9230 [facility] Administration Ondansetron HCl 4 mg 07/06/20 01:54 07/13/20 10:57 Ondansetron Hcl 4 Mg/2 Ml Vial IVPUSH 4 mg Q8H PRN Administration Nausea and Vomiting Sodium Chloride 3 ml 07/06/20 01:54 07/21/20 09:49 0.9 % Sodium Chloride Flush 3 Ml Syringe IVFLUSH 3 ml QSHIFT [facility] Administration Venlafaxine HCl 75 mg 07/06/20 09:00 07/21/20 09:48 Venlafaxine Hcl Er 75 Mg Cap.Er.24h PO 75 mg DAILY [facility] Administration Venlafaxine HCl 150 mg 07/06/20 09:00 07/21/20 09:48 Venlafaxine Hcl Er 150 Mg Cap.Er.24h PO 150 mg DAILY [facility] Administration Labs CBC & Chem 7: 07/19/20 11:41 07/19/20 11:41 Microbiology Microbiology Results: Microbiology 07/06/20 05:54 Blood - Venous Blood Culture - Final No growth after 5 days. 07/06/20 05:52 Blood - Venous Blood Culture - Final No growth after 5 days. 07/05/20 21:54 Blood - Venous Blood Culture - Final No growth after 5 days. 07/05/20 19:51 Blood - Venous Blood Culture - Final No growth after 5 days. Assessment and Plan (1) Diabetes: Status: Acute (2) Abnormal EKG: Status: Acute (3) COVID-19: Status: Acute (4) Depression: Status: Acute (5) Blood bacterial culture positive: Status: Acute (6) Lactic acidosis: Status: Acute (7) Failure to thrive: Status: Acute (8) Weakness: Status: Acute Assessment and Plan: 64yo M with COPD undergoing STR at [facility] [[facility]] who tested positive for COVID-19 06/27/20 and was called in due to 2/2 BCx positive for GPCs but which returned as contaminant [coagulase-negative Staphylococcus Upper GI bleed secondary to severe esophagitis and duodenal ulcer patient developed coffee-ground emesis on 07/13/2020, status post EGD 07/17/20 that shows severe esophagitis and duodenal ulcer nonbleeding, no further episodes of hematemesis or coffee-ground emesis, continue PPI, avoid anticoagulation, repeat hematocrit remains stable Acute blood loss anemia secondary to GI bleed s/p 2 units of PRBC repeat hematocrit remains stable Severe, resistant depression patient mood continue to fluctuate, this a.m. patient not cooperative, not engaging in conversation, yesterday had better affect and was verbalizing more, patient does not appear to be sick with stable vitals ,electrolytes, renal function, no fever, no chills not appear to have underlying infection. Psychiatry recommended inpatient psychiatry placement for resumption/titration of olanzapine, which he was on previously but for unknown reasons was stopped in mid-May. continue venlafaxine and olanzapine 10 mg qhs (was on 20 mg) will continue to encourage patient to participate in care and take medications, since no [facility] bed available patient will be discharged to rehab facility once bed available. acute encephalopathy Resolved, no confusion, no delusions, no hallucination no evidence of acute infection, UA negative, prior negative CT head, chest x-ray and abdominal films . Mildly Elevated Tn-I Likely related to COVID-19 infection, no complain of chest pain no further workup warranted. COVID-19 PNA [previously diagnosed 06/27/20] no hypoxia, repeat SARS CoV2 PCR x2, is negative, 24 hr apart, no further isolation precautions. Bacteremia blood culture grew Staph epidermidis likely contamination. COPD exacerbation [prior diagnosis] s/p prednisone taper. continue LABA , no active symptoms of shortness of breath or cough. HTN Blood pressure better controlled with resumption of atenolol 50 mg daily,at home takes atenolol 100 mg daily, and hydralazine 25 mg b.i.d., DM2, A1c 9.2 blood sugar better controlled with addition of glipizide 5 mg daily, continue sliding scale insulin at home takes glipizide 10 mg b.i.d. HLD continue Lipitor 40 mg at bedtime VTE ppx continue LMWH Disposition patient evaluated by Physical therapy PT recommend short-term rehab versus home with [facility]. social media content specialist arranging for safe discharge Likely next 24 hours patient will need COVID test prior to discharge.
[2020-07-21 15:17] VITALS: BP 116/63; PULSE 74; RESP 18; TEMP 36.2; O2SAT 93
[2020-07-21 15:21] LABS: Glucose, Whole Blood 143 mg/dL (60-115)
[2020-07-21 19:01] VITALS: BP 123/62; PULSE 74; RESP 18; TEMP 36.8; O2SAT 93
[2020-07-21] MEDS: Enoxaparin Sodium 40 MG/0.4 ML SYRINGE SUBCUT (19:35)
[2020-07-21 20:24] LABS: Glucose, Whole Blood 155 mg/dL (60-115)
[2020-07-22] VITALS: BP 129/63; PULSE 72; RESP 18; TEMP 36.3; O2SAT 92
[2020-07-22] MEDS: 0.9 % Sodium Chloride Flush 3 ML SYRINGE IVFLUSH ×2 (00:49→08:51)
[2020-07-22 04:00] VITALS: BP 137/75; PULSE 73; RESP 18; TEMP 36.9; O2SAT 95
[2020-07-22] MEDS: Omeprazole 20 MG CAPSULE.DR PO (06:23)
[2020-07-22 06:29] LABS: MANUAL DIFF FLAG NO
[2020-07-22 07:21] LABS: Basophils Percent Auto 0.5 % (0-2); Eosinophils Absolute Auto 0.1 X10*3/uL (0.0-0.4); Eosinophils Percent Auto 1.2 % (0-4); Hematocrit 31.3 % (42-52); Hemoglobin 10.4 g/dl (14.0-18.0); Imm Gran Abs Auto 0.12 X10*3/uL (0.00-0.03); Lymphocytes Percent Auto 15.9 % (20-40); Mean Corpuscular HGB Conc 33.2 g/dl (31.0-36.0); Mean Corpuscular Hemoglobin 28.7 pg (27.0-33.0); Mean Corpuscular Volume 86.5 fL (80-98); Monocytes Absolute Auto 0.6 X10*3/uL (0.1-1.2); Monocytes Percent Auto 9.9 % (2-11); Neutrophils Absolute Auto 4.3 X10*3/uL (2.0-8.3); Neutrophils Percent Auto 70.5 % (45-73); Platelet Count 218 X10*3/uL (160-400); Red Blood Count 3.62 X10*6/uL (4.60-5.80); Red Cell Distribution Width 17.4 % (11.0-16.0); White Blood Count 6.1 X10*3/uL (4.8-10.8)
[2020-07-22 07:48] VITALS: BP 148/75; PULSE 72; RESP 18; TEMP 36.2; O2SAT 73
[2020-07-22 08:02] LABS: Anion Gap 14 (12-20); Blood Urea Nitrogen 9 mg/dL (9-16); Calcium 6.9 mg/dL (8.4-10.2); Carbon Dioxide 26 mmol/L (22-29); Chloride 97 mmol/L (96-108); Creatinine Clr Calc Pharmacy 88.2; Estimated Glomerular Filt Rate > 60; Glucose Random 147 mg/dL (60-115); Sodium 134 mmol/L (135-145)
[2020-07-22 08:05] LABS: Glucose, Whole Blood 152 mg/dL (60-115)
[2020-07-22] MEDS: glipiZIDE XL 5 MG TAB.ER.24 PO (08:48)
[2020-07-22] MEDS: Venlafaxine HCl ER 75 MG CAP.ER.24H PO (08:49)
[2020-07-22] MEDS: atenoloL 50 MG TABLET PO (08:49)
[2020-07-22] MEDS: Venlafaxine HCl ER 150 MG CAP.ER.24H PO (08:50)
[2020-07-22 10:33] VITALS: BP 148/75; PULSE 72; O2SAT 73
--- NOTE | 2020-07-22 11:38 | MHC.CM.PN ---
Patient has been medically cleared for dc to SNF today. CM has been doing dc planning with both Patient and his /Savana. Out of 41 referrals made, [facility] the only bed offered. and Patient are discouraged that this is the only bed available,; CM explained that should a [facility] facility closer to this area have an appropriate bed available, [facility] will consider transferring Patient to that closer facility.Last IMM addressed on 07/20/2020.
--- NOTE | 2020-07-22 13:26 | P.DS_ITS ---
DS: Providers Provider Date of admission: 07/05/20 23:59 Primary care physician: Unknown Physician Consults: 07/06/20 08:52 Consult to Infectious Diseases Routine Consulting Provider: Di Jj Reason for consultation: GPC bacteremia, COVID-19 07/07/20 10:27 Consult to Psychiatry Routine Consulting Provider: Lisbet Garcia Reason for consultation: refusal to eat/refusal to take meds, Zyprexa stopped at SNF 07/07/20 15:26 Consult to Crisis Stat Reason for consultation: geripsych placement 07/07/20 17:37 Consult to Care Team Routine Comment: Reason for consultation: care team to [facility] crisis consult 07/08/20 17:34 Consult to Cardiology Routine Consulting Provider: Tim Britton Reason for consultation: ekg changes Has provider been notified: No 07/09/20 03:47 Consult to Cardiology Routine Consulting Provider: Tim Britton Reason for consultation: elevated trop Has provider been notified: No 07/13/20 17:40 Consult to Gastroenterology Routine Consulting Provider: Gamal Morales Reason for consultation: upeer gi bleed 07/17/20 09:29 Consult to Crisis Stat Reason for consultation: severe depression for placeent 07/18/20 09:36 Consult to Crisis Stat Reason for consultation: [facility] psyche placement Has provider been notified: No DS: Diagnosis Discharge Diagnosis (1) Diabetes: Status: Acute (2) Abnormal EKG: Status: Acute (3) COVID-19: Status: Acute (4) Depression: Status: Acute (5) Blood bacterial culture positive: Status: Acute (6) Lactic acidosis: Status: Acute (7) Failure to thrive: Status: Acute (8) Weakness: Status: Acute DS: Medications Discharge Medications Home Medications: Home Medications Medication Instructions Recorded Confirmed atenolol 100 mg PO DAILY 06/06/20 07/06/20 glipizide 10 mg PO BID 06/06/20 07/06/20 hydralazine 25 mg PO BID 06/06/20 07/06/20 lovastatin 20 mg PO BEDTIME 06/06/20 07/06/20 venlafaxine 75 cap PO DAILY 06/06/20 07/06/20 venlafaxine 150 mg PO DAILY 06/06/20 07/06/20 acetaminophen 650 mg PO Q4H PRN 07/06/20 07/06/20 alum-mag hydroxide-simeth 30 ml PO Q4H PRN 07/06/20 07/06/20 [Ness-Lanta] ondansetron HCl [Zofran] 4 mg PO Q8H PRN 07/06/20 07/06/20 Previous Rx's Medication Instructions Recorded fluticasone furoate-vilanterol 1 inh INHALATION Q24H #28 ea 06/07/20 [Breo Ellipta] insulin lispro [Humalog U-100 See Protocol SUBCUT QIDACHS #10 ml 06/07/20 Insulin] prednisone 20 mg PO DAILY #5 tab 06/07/20 DS: Summary Hospital Course Hospital Course: HPI by Dr. Olivo 07/06/20 Chief Complaint: bacteremia This is a 64-year-old male with an extensive past medical history as below who presents to the hospital after initially presenting on 07/01 with generalized weakness and poor appetite. At that time COVID tested and was positive and blood cultures were collected. Patient was sent to rehab, but blood cultures came back positive and 07/04 and patient was called to come back to the ED. Patient is very frustrated with the fact that he had to come back to the hospital,not cooperating with my exam, and is unwilling to answer most of my questions. although most of his answers are I do not know , he denies any shortness of breath, no chest pain, no fever or chills, no abdominal pain or nausea or vomiting, no diarrhea or constipation. No urinary symptoms. it appears the patient [facility] jail has been doing well, tolerating p.o., afebrile, and no acute Issues. His preliminary blood cultures showed Gram-positive cocci 2/2 bottles. currently patient hemodynamically stable with no significant abnormal vitals, afebrile, labs are significant for WBC count of 9.9, lymphopenia, sodium of 132, otherwise unremarkable. UA pending collection chest x-ray from 07/04 showed patchy peripheral opacities in the bilateral lower lungs, abdominal CT showed no acute abnormality in the abdomen or pelvis, Patient will be admitted for bacteremia, and IV antibiotics patient unwilling to give me any information about his past medical history and is frustrated with my questions PMH: CAD, COPD, CVA with left-sided weakness, depression, hypertension, hyperlipidemia, diabetes surgical history: PCI with stents, tonsillectomy social history: Comes from Rehab ( [facility] in [facility]) Hospital course: He presented originally with bacteremia and then had GI bleed, and became very depressed and for the most was in the hospital for so long due to placement issues Bacteremia--Final culture grew staph epidermis and deemed contamination and warranted no further treatment. Upper GI bleed--patient developed coffee-ground emesis on 07/13/2020 and hemoglobin of 7.4 status post EGD 07/17/20 showed severe esophagitis and duodenal ulcer nonbleeding. He was put on PPI and anticoagulant and antipletlets avoided. He has not further episodes of hematemesis or coffee-ground emesis, continue PPI. Blood count has been stable with present hemoglobin 10.4. He was transfused 2 units of RBC on 07/13/20. He will continue PPI (Prilosec) and should avoid ASA, NSAID or anticoagulan Acute blood loss anemia secondary to GI bleed--Transfused 2 units on 07/13/20 and H/H has since been stable. Severe, resistant depression patient mood continue to fluctuate, at time not cooperative, and sometime will not engage in conversation. Acute medical illness have been rule out. Initially attempt was made to place him to [facility] but unsuccesfully, he he is overall better now and Psych recommend continuing venlafaxine and olanzapine 10 mg qhs (was on 20 mg) will continue to encourage patient to participate in care and take medications. He will be going to short term rehab now and outpatient Psych follow up. He denies suicidal ideation. Acute encephalopathy--Resolved, no confusion, no delusions, no hallucination no evidence of acute infection, UA negative, prior negative CT head, chest x- ray and abdominal films . Mildly Elevated Tn-I Likely related to COVID-19 infection, no complain of chest pain no further workup warranted. COVID-19 PNA [previously diagnosed 06/27/20] no hypoxia, repeat covid-19 test on 07/07/20, 07/08/20 and today 07/22/20 are all negative and while in hospital was no longer in covid precaution uni. COPD exacerbation [prior diagnosis] s/p prednisone taper. continue LABA , no active symptoms of shortness of breath or cough. HTN Blood pressure better controlled with resumption of atenolol 50 mg daily,at home takes atenolol 100 mg daily, and hydralazine 25 mg b.i.d., DM2, A1c 9.2 blood sugar better controlled with addition of glipizide 5 mg daily, continue sliding scale insulin at home takes glipizide 10 mg b.i.d. HLD continue Lipitor 40 mg at bedtime Patient will be going to short term rehab for less than 30 days. Time Spent with Patient Time attestation: Total time spent providing and/or coordinating discharge services: Physical Exam Vital Signs: Vital Signs: Last Vital Signs Temp 97.1 F 07/22/20 07:48 Pulse 72 07/22/20 10:33 Resp 18 07/22/20 07:48 BP 148/75 H 07/22/20 10:33 Pulse Ox 73 L 07/22/20 10:33 Body Mass Index 23.6 General patient resting comfortably,no acute distress. appears fraoil Neck supple no JVD. CVS regular rate rhythm, Respiratory lungs clear to auscultation, no respiratory distress Gastrointestinal abdomen soft, nontender, bowel sounds audible. Extremities no clubbing ,cyanosis or edema. Neuro nonfocal , speech clear. DS: Data Data Completed and Pending Completed studies during hospitalization [Text1]: Pending at discharge 07/14/20 10:48 Surgical [PTH] Routine Labs on day of discharge: 07/05/20 19:42 Blood Culture X2 [BC] Stat 07/05/20 19:49 Complete Blood Count Auto Diff Stat Comprehensive Met. Panel Stat Ferritin Stat Lactate Dehydrogenase Stat Liver Panel Stat Partial Thromboplastin Time Stat Procalcitonin Stat Prothrombin Time INR Stat 07/05/20 19:50 Lactic Acid Stat 07/05/20 21:54 Blood Culture X2 [BC] Stat 07/05/20 23:18 vancomycin HCL 1,032 mg 0.9 % Sodium Chloride [Ns] 250 ml IV PREOP 07/05/20 23:55 Transfer Order Routine 07/06/20 venous duplex LE BI Routine 07/06/20 01:54 Vital Signs Q1HR 07/06/20 02:06 Glucose, Whole Blood Routine 07/06/20 03:00 vancomycin HCL 1,000 mg 0.9 % Sodium Chloride [Ns] 250 ml IV Q12H 07/06/20 03:01 vancomycin HCL 1,000 mg .ROUTE .STK-MED ONE 07/06/20 05:54 Basic Metabolic Panel Routine Complete Blood Count Auto Diff Routine 07/06/20 06:00 Heparin Sodium,Porcine 5,000 unit SUBCUT Q12H 07/06/20 07:30 Insulin Lispro [Humalog] See Protocol SUBCUT QIDACHS 07/06/20 07:40 Glucose, Whole Blood Routine 07/06/20 09:00 atenoloL [Tenormin] 100 mg PO DAILY hydrALAZINE HCl [Apresoline] 25 mg PO BID predniSONE 20 mg PO DAILY 07/06/20 Breakfast Diabetic Diet 07/06/20 11:01 Glucose, Whole Blood Routine 07/06/20 15:37 Glucose, Whole Blood Routine 07/06/20 Lunch Diabetic Diet 07/06/20 20:08 Glucose, Whole Blood Routine 07/06/20 21:00 Pravastatin Sodium [Pravachol] 20 mg PO BEDTIME 07/07/20 05:49 C Reactive Protein Routine Complete Blood Count Auto Diff Routine Comprehensive Met. Panel Routine Hemoglobin A1c Routine Lactate Dehydrogenase Routine Procalcitonin Routine 07/07/20 07:36 Glucose, Whole Blood Routine 07/07/20 09:00 predniSONE 10 mg PO DAILY 07/07/20 11:20 Glucose, Whole Blood Routine 07/07/20 11:30 Add Laboratory Test Routine 07/07/20 14:57 Vancomycin Trough Routine 07/07/20 15:59 COVID-19 ID NOW ([employer]) Routine 07/07/20 16:16 Glucose, Whole Blood Routine 07/07/20 20:00 Glucose, Whole Blood Routine 07/07/20 21:00 OLANZapine [ZyPREXA] 5 mg PO BEDTIME 07/08/20 ECG 12 lead EKG Routine 07/08/20 07:39 Glucose, Whole Blood Routine 07/08/20 08:38 EKG Documentation DIRECTED 07/08/20 11:00 CA echo transthorac w con Routine 07/08/20 11:17 Glucose, Whole Blood Routine 07/08/20 14:05 Perflutren Lipid Microspheres [Definity] 2.2 mg IVPUSH .STK-MED ONE 07/08/20 14:06 Perflutren Lipid Microspheres [Definity] 2.2 mg IVPUSH .STK-MED ONE 07/08/20 16:08 COVID-19 ID NOW ([employer]) Routine 07/08/20 16:23 Glucose, Whole Blood Routine 07/08/20 17:34 Aspirin Enteric Coated [Ecotrin] 81 mg PO ONCE ONE 07/08/20 18:00 Atorvastatin Calcium [Lipitor] 80 mg PO BEDTIME 07/08/20 20:37 Glucose, Whole Blood Routine 07/08/20 20:51 Troponin-I High Sensitivity Q3H 07/09/20 02:48 Troponin-I High Sensitivity Stat 07/09/20 21:09 Glucose, Whole Blood Routine 07/10/20 09:02 Glucose, Whole Blood Routine 07/10/20 11:16 Glucose, Whole Blood Routine 07/10/20 16:26 Glucose, Whole Blood Routine 07/10/20 21:18 Glucose, Whole Blood Routine 07/11/20 08:14 Glucose, Whole Blood Routine 07/11/20 12:30 Glucose, Whole Blood Routine 07/11/20 16:19 Glucose, Whole Blood Routine 07/11/20 20:26 Glucose, Whole Blood Routine 07/12/20 09:24 Glucose, Whole Blood Routine 07/12/20 11:13 Glucose, Whole Blood Routine 07/12/20 16:07 Glucose, Whole Blood Routine 07/12/20 20:20 Glucose, Whole Blood Routine 07/13/20 XR KUB Stat 07/13/20 07:31 Glucose, Whole Blood Routine 07/13/20 09:29 Basic Metabolic Panel Routine Complete Blood Count Auto Diff Routine 07/13/20 11:02 Glucose, Whole Blood Routine 07/13/20 16:31 Glucose, Whole Blood Routine 07/13/20 17:20 Pantoprazole Sodium [Protonix] 40 mg IVPUSH BID@0630,1630 07/13/20 17:30 0.9 % Sodium Chloride [Ns] 1,000 ml IVCONT 75 mls/hr 07/13/20 17:56 Red Blood Cells Routine Type and Screen Routine Complete Blood Count Auto Diff Stat 07/13/20 20:36 Glucose, Whole Blood Routine 07/14/20 04:52 Complete Blood Count Auto Diff Stat 07/14/20 06:03 Omeprazole [PriLOSEC] 20 mg PO BID@0603,1630 07/14/20 06:30 Pantoprazole Sodium [Protonix] 40 mg IVPUSH BID@0630,1630 07/14/20 07:17 Glucose, Whole Blood Routine 07/14/20 09:48 propofoL [Diprivan] 200 mg IVPUSH .STK-MED ONE 07/14/20 10:27 Glucose, Whole Blood Routine 07/14/20 10:48 Surgical [PTH] Routine 07/14/20 11:04 Transfer Order Routine 07/14/20 12:02 Glucose, Whole Blood Routine 07/14/20 Lunch Cardiac Diet 07/14/20 16:16 Glucose, Whole Blood Routine 07/14/20 20:36 Glucose, Whole Blood Routine 07/14/20 23:27 Hemoglobin and Hematocrit Routine 07/15/20 00:36 0.9 % Sodium Chloride [Ns] 500 ml IVCONT 999 mls/hr 07/15/20 07:29 Glucose, Whole Blood Routine 07/15/20 10:24 Basic Metabolic Panel Routine Complete Blood Count Auto Diff Routine 07/15/20 17:30 Glucose, Whole Blood Routine 07/16/20 16:43 Glucose, Whole Blood Routine 07/16/20 20:41 Glucose, Whole Blood Routine 07/17/20 07:15 Glucose, Whole Blood Routine 07/17/20 09:21 Complete Blood Count Auto Diff Routine 07/17/20 11:33 Glucose, Whole Blood Routine 07/17/20 16:40 Glucose, Whole Blood Routine 07/17/20 20:25 Glucose, Whole Blood Routine 07/18/20 07:24 Glucose, Whole Blood Routine 07/18/20 11:05 Glucose, Whole Blood Routine 07/18/20 16:59 Glucose, Whole Blood Routine 07/19/20 07:14 Glucose, Whole Blood Routine 07/19/20 11:09 Glucose, Whole Blood Routine 07/19/20 11:41 Basic Metabolic Panel Routine Complete Blood Count Auto Diff Routine 07/19/20 15:31 Glucose, Whole Blood Routine 07/19/20 20:22 Glucose, Whole Blood Routine 07/20/20 07:43 Glucose, Whole Blood Routine 07/20/20 11:36 Glucose, Whole Blood Routine 07/20/20 15:56 Glucose, Whole Blood Routine 07/20/20 20:27 Glucose, Whole Blood Routine 07/21/20 07:55 Glucose, Whole Blood Routine 07/21/20 11:28 Glucose, Whole Blood Routine 07/21/20 15:10 Glucose, Whole Blood Routine 07/21/20 20:19 Glucose, Whole Blood Routine 07/22/20 05:57 Basic Metabolic Panel Routine Complete Blood Count Auto Diff Routine 07/22/20 07:50 Glucose, Whole Blood Routine Laboratory Last Values WBC 6.1 X10*3/uL (4.8-10.8) 07/22/20 05:57 RBC 3.62 X10*6/uL (4.60-5.80) L 07/22/20 05:57 Hgb 10.4 g/dl (14.0-18.0) L 07/22/20 05:57 Hct 31.3 % (42-52) L 07/22/20 05:57 MCV 86.5 fL (80-98) 07/22/20 05:57 MCH 28.7 pg (27.0-33.0) 07/22/20 05:57 MCHC 33.2 g/dl (31.0-36.0) 07/22/20 05:57 RDW 17.4 % (11.0-16.0) H 07/22/20 05:57 Plt Count 218 X10*3/uL (160-400) D 07/22/20 05:57 MPV 9.0 fL (9.4-12.4) L 07/22/20 05:57 Immature Gran % (Auto) 2.0 % (0.0-0.4) H 07/22/20 05:57 Neut % (Auto) 70.5 % (45-73) 07/22/20 05:57 Lymph % (Auto) 15.9 % (20-40) L 07/22/20 05:57 Ada % (Auto) 9.9 % (2-11) 07/22/20 05:57 Eos % (Auto) 1.2 % (0-4) 07/22/20 05:57 Baso % (Auto) 0.5 % (0-2) 07/22/20 05:57 Lymph # (Auto) 1.0 X10*3/uL (1.2-4.9) L 07/22/20 05:57 Ada # (Auto) 0.6 X10*3/uL (0.1-1.2) 07/22/20 05:57 Eos # (Auto) 0.1 X10*3/uL (0.0-0.4) 07/22/20 05:57 Baso # (Auto) 0.0 X10*3/uL (0.0-0.2) 07/22/20 05:57 Abs Immat Gran (auto) 0.12 X10*3/uL (0.00-0.03) H 07/22/20 05:57 Absolute Neuts (auto) 4.3 X10*3/uL (2.0-8.3) 07/22/20 05:57 Absolute Nucleated RBC 0.000 X10*3/uL (0.0-0.012) 07/22/20 05:57 Nucleated RBC % (auto) 0.0 /100WBC (0.0-0.2) 07/22/20 05:57 PT 11.9 SEC (10.8-13.0) 07/05/20 19:49 INR 1.0 (0.9-1.1) 07/05/20 19:49 APTT 27.7 SEC (24.1-38.0) 07/05/20 19:49 Sodium 134 mmol/L (135-145) L 07/22/20 05:57 Potassium 3.0 mmol/l (3.3-5.1) L 07/22/20 05:57 Chloride 97 mmol/L (96-108) 07/22/20 05:57 Carbon Dioxide 26 mmol/L (22-29) 07/22/20 05:57 Anion Gap 14 (12-20) 07/22/20 05:57 BUN 9 mg/dL (9-16) 07/22/20 05:57 Creatinine 0.77 mg/dL (0.5-1.4) 07/22/20 05:57 Estim Creat Clear Calc 88.2 07/22/20 05:57 Estimated GFR > 60 07/22/20 05:57 POC Glucose 152 mg/dL (60-115) H 07/22/20 07:50 Random Glucose 147 mg/dL (60-115) H 07/22/20 05:57 Estimat Average Glucose 217 mg/dL 07/07/20 05:49 Hemoglobin A1c % 9.2 % 07/07/20 05:49 Lactic Acid 1.0 mmol/L (0.5-2.0) 07/05/20 19:50 Calcium 6.9 mg/dL (8.4-10.2) L 07/22/20 05:57 Ferritin 1444 ng/mL (20-250) H 07/05/20 19:49 Total Bilirubin 0.4 mg/dL (0.0-1.0) 07/07/20 05:49 Direct Bilirubin 0.3 mg/dL (0.0-0.5) 07/05/20 19:49 AST 13 U/L (5-37) 07/07/20 05:49 ALT 18 U/L (0-40) 07/07/20 05:49 Alkaline Phosphatase 87 U/L (39-117) 07/07/20 05:49 Lactate Dehydrogenase 261 U/L (118-273) 07/07/20 05:49 Troponin I High Sens 58.2 ng/L (<3.5-35.0) H D 07/09/20 02:48 C-Reactive Protein 0.96 mg/dL (< or = 0.50) H 07/07/20 05:49 Total Protein 5.3 g/dL (6.5-8.0) L 07/07/20 05:49 Albumin 2.9 g/dL (3.5-5.0) L 07/07/20 05:49 Procalcitonin 0.02 ng/mL 07/07/20 05:49 Urine Color YELLOW 07/19/20 13:45 Urine Appearance CLEAR 07/19/20 13:45 Urine pH 6.0 (5.0-8.0) 07/19/20 13:45 Ur Specific Proctor 1.025 (1.005-1.025) 07/19/20 13:45 Urine Protein 2+ MG/DL (NEG-TRACE) H 07/19/20 13:45 Urine Glucose (UA) 100 MG/DL (NEG) H 07/19/20 13:45 Urine Ketones 40 MG/DL (NEG) 07/19/20 13:45 Urine Blood NEG (NEG) 07/19/20 13:45 Urine Nitrite NEG (NEG) 07/19/20 13:45 Ur Leukocyte Esterase NEG (NEG) 07/19/20 13:45 Urine RBC 0-2 /HPF (0) 07/19/20 13:45 Urine WBC 1-4 /HPF (0-4) 07/19/20 13:45 Ur Squamous Epith Cells TRACE /LPF 07/19/20 13:45 Urine Bacteria NONE /LPF 07/19/20 13:45 Vancomycin Trough 3.9 mcg/mL (10.0-20.0) L 07/07/20 14:57 COVID-19 ([facility]) Cancelled 07/22/20 12:21 COVID-19 Clin Com Cancelled 07/22/20 12:21 Blood Type O Positive 07/13/20 17:56 Antibody Screen NEGATIVE 07/13/20 17:56 Crossmatch See Detail 07/13/20 17:56 Discharge Plan Discharge Anticipated Discharge Date/Time: 07/22/20 14:18 Patient Disposition: Xfer SNF Referrals: [facility] [Outside] Kayy Pabon NP [Nurse Practitioner] - 1 Week (Please call and schedule a follow up appointment within 1 week.) Discharge Medications: New omeprazole 20 mg Capsule,Delayed Release(Dr/Ec) 20 mg PO BID@0630,1630 Qty: 60 RF: 0 olanzapine 10 mg Tablet,Disintegrating 10 mg translingual BEDTIME Qty: 30 RF: 0 Continued venlafaxine 75 mg capsule,extended release 24hr 75 cap PO DAILY RF: 0 venlafaxine 150 mg capsule,extended release 24hr 150 mg PO DAILY RF: 0 hydralazine 25 mg tablet 25 mg PO BID RF: 0 lovastatin 20 mg tablet 20 mg PO BEDTIME RF: 0 insulin lispro [Humalog U-100 Insulin] 100 unit/mL Solution See Protocol unit subcut QIDACHS Qty: 10 RF: 0 Breo Ellipta 100-25 mcg/dose blister with device 1 inh inhalation Q24H Qty: 28 RF: 0 ondansetron HCl [Zofran] 4 mg Tablet 4 mg PO Q8H PRN (Reason: Nausea) RF: 0 acetaminophen 650 mg Tablet 650 mg PO Q4H PRN (Reason: Cervical Ripening) RF: 0 alum-mag hydroxide-simeth [Ness-Lanta] 200-200-20 mg/5 mL Suspension 30 ml PO Q4H PRN (Reason: Indigestion) RF: 0 Changed glipizide 10 mg tablet 5 mg PO DAILY Qty: 0 RF: 0 atenolol 50 mg tablet 50 mg PO DAILY Qty: 0 RF: 0 Discontinued prednisone 20 mg Tablet 20 mg PO DAILY Qty: 5 RF: 0 Discharge Orders: Discharge Order (Routine); Ordered 07/22/20 Ordered By: Jerry Aguero Diet: diabetic diet Activity on Discharge: As tolerated Discharge Date/Time: 07/22/20 17:50 Visit Report Forms: Patient Portal Discharge page Care Plan Goals: Short term rehab for post covid weakness and depression Health Concerns: Depression Plan of Treatment: Should follow up with Psychiatrist or therapist on outpatient basis, continue medication for HLD, diabetes and HTN
[2020-07-22 13:51] LABS: COVID-19 Test Negative (Negative); IDNOW Serial# 9DD0AD1C
[2020-07-22 14:28] LABS: Glucose, Whole Blood 172 mg/dL (60-115)
--- NOTE | 2020-07-22 15:27 | MHC.CM.PN ---
Patient will dc to [facility] [place] to day at 5:30 PM.
[2020-07-22 16:13] LABS: Glucose, Whole Blood 158 mg/dL (60-115)
== END 2020-07-22 17:50 | disposition skilled nursing facility (03) | DRG 193 ==
LOC: HO.ED 17:33 → HO.IMC 07-06 00:17
PROVIDERS: Family Medicine; Hospitalist; Internal Medicine; Internal Medicine Gastroenterology; Physician Assistant; Physician Assistant Medical; Admitting Provider Internal Medicine; Emergency Provider Emergency Medicine; Visit Provider Internal Medicine
PROC: 0DJ08ZZ Inspection of Upper Intestinal Tract, Via Natural or Artificial Opening Endoscopic (ICD-10-PCS; CPT 43235; principal; 2020-07-14 10:30)
DX: J12.89 Other viral pneumonia (principal); K22.11 Ulcer of esophagus with bleeding; K29.81 Duodenitis with bleeding; D62 Acute posthemorrhagic anemia; G93.40 Encephalopathy, unspecified; B94.8 Sequelae of other specified infectious and parasitic diseases; I10 Essential (primary) hypertension; Z20.828 Contact with and (suspected) exposure to other viral communicable diseases; E11.9 Type 2 diabetes mellitus without complications; E78.5 Hyperlipidemia, unspecified; F32.9 Major depressive disorder, single episode, unspecified; R94.31 Abnormal electrocardiogram [ECG] [EKG]; J44.9 Chronic obstructive pulmonary disease, unspecified; Z87.891 Personal history of nicotine dependence; Z79.4 Long term (current) use of insulin; Z79.899 Other long term (current) drug therapy
CPT/HCPCS: 36415; 71045; 74018; 74176; 80048; 80053; 80076; 80202; 81001; 81003; 82728; 82947; 83036; 83605; 83615; 84145; 84484; 85014; 85018; 85025; 85610; 85730; 86140; 86850; 86900; 86901; 86920; 86923; 87040; 87077; 87147; 87186; 87635; 88305; 88342; 93005; 93306; 93970; 94640; 96361; 96365; 96374; 97116; 97161; 97530; 99221; 99284; 99285; J1650; J2405; J3370; P9016; Q9957

== ENCOUNTER 2022-05-18 09:51 | Inpatient (IN) | payer MEDICARE, OTHER, SELFPAY ==
--- NOTE | ~2022-05-18 | XR_ITS ---
EXAMINATION: XR CHEST AP portable, 10:18 AM CLINICAL INFORMATION: Cough COMPARISON: None TECHNIQUE: Frontal view of the chest was obtained. FINDINGS: No significant abnormality is noted involving the heart, lungs, mediastinum, bony thorax or soft tissues. XR/XR chest 1V IMPRESSION: Unremarkable examination.
[2022-05-18 09:58] VITALS: BP 153/77; BP 165/90; PULSE 80; PULSE 81; RESP 21; TEMP 36.4; O2SAT 95; BMI 23.0
[2022-05-18 10:15] LABS: COVID-19 Test Positive (Negative); IDNOW Serial# 16C4AD1C
--- NOTE | 2022-05-18 10:18 | ECG_ITS ---
Test Reason : weakness Blood Pressure : / mmHG Vent. Rate : 069 BPM Atrial Rate : 069 BPM P-R Int : 148 ms QRS Dur : 144 ms QT Int : 510 ms P-R-T Axes : 068 061 -34 degrees QTc Int : 546 ms Normal sinus rhythm Right bundle branch block T wave abnormality, consider inferior ischemia T wave abnormality, consider anterior ischemia Abnormal ECG When compared with ECG of 08-JUL-2020 15:44, T wave inversion now evident in Inferior leads Referred By: Marlon Moura Electronically Signed By:LEENA ELLIOTT
--- NOTE | 2022-05-18 10:20 | ED_ITS ---
HPI - General Adult General Chief complaint: General Medical Stated complaint: covid positive doesn't feel well Time Seen by Provider: 05/18/22 10:07 Source: patient, EMS and old records reviewed History of Present Illness HPI narrative: Patient comes in complaining of generalized weakness and difficulty ambulating with his walker. He lives with his at home but she is currently hospitalized with COVID-19. Patient states he recently tested positive for COVID-19 but does not know which day it was. He was hospitalized 2020 with COVID-19 with a prolonged course with a 2 week inpatient stay. Time he had elevated troponins and positive blood cultures complicating his syndrome. Currently he denies fevers. He denies chest pain. He states he is coughing and slightly dyspneic. But his main complaint is generalized weakness. He denies focal weakness. No falls or trauma. Cough without phlegm Risk factors for severe illness from COVID-19 include COPD and diabetes Related Data Home Medications Medication Instructions Recorded Confirmed hydralazine 25 mg tablet 25 mg PO BID 06/06/20 07/06/20 lovastatin 20 mg tablet 20 mg PO BEDTIME 06/06/20 07/06/20 venlafaxine 150 mg 150 mg PO DAILY 06/06/20 07/06/20 capsule,extended release 24 hr venlafaxine 75 mg capsule,extended 75 cap PO DAILY 06/06/20 07/06/20 release 24 hr acetaminophen 650 mg tablet 650 mg PO Q4H PRN Cervical Ripening 07/06/20 07/06/20 aluminum-mag hydroxide-simethicone 30 ml PO Q4H PRN Indigestion 07/06/20 07/06/20 200 mg-200 mg-20 mg/5 mL oral susp (Ness-Lanta) ondansetron HCl 4 mg tablet 4 mg PO Q8H PRN Nausea 07/06/20 07/06/20 (Zofran) Previous Rx's Medication Instructions Recorded fluticasone furoate 100 1 inh inhalation Q24H #28 ea 06/07/20 mcg-vilanterol 25 mcg/dose inhalation powder (Breo Ellipta) insulin lispro 100 unit/mL See Protocol subcut QIDACHS #10 mL 06/07/20 subcutaneous solution (Humalog U-100 Insulin) atenolol 50 mg tablet 50 mg PO DAILY #0 tabs 07/22/20 glipizide 10 mg tablet 5 mg PO DAILY #0 tabs 07/22/20 olanzapine 10 mg disintegrating 10 mg translingual BEDTIME #30 tabs 07/22/20 tablet omeprazole 20 mg capsule,delayed 20 mg PO BID@0630,1630 #60 caps 07/22/20 release Allergies Allergy/AdvReac Type Severity Reaction Status Date / Time No Known Allergies Allergy Unknown NKA Verified 07/05/20 17:17 Review of Systems Constitutional: Comments: General malaise and general weakness without fevers or chills Cardiovascular: Comments: No chest pain or palpitations Respiratory: Comments: Cough without sputum. Dyspnea with exertion Gastrointestinal: Comments: No abdominal pain . Some nausea no vomiting Musculoskeletal: Comments: No leg pain Integumentary/Breasts: Comments: No rash Neurologic: Comments: General weakness but no focal weakness [facility] Past Medical History [facility] Narrative: Quit smoking several years ago Medical History COPD (chronic obstructive pulmonary disease) CVA (cerebral vascular accident) Diabetes mellitus type 1 Dizziness Hypertension Surgical History History of percutaneous coronary intervention Social History Social History Household Members: Spouse Housing: Apartment Do you presently have visiting nurse or other home services: No Alcohol intake: never Second Hand Smoke Exposure: No Advance Directives: Yes Advance Directives on File: Yes Advance Directives Date on File: 05/31/20 service: No Current occupational status: retired Physical Exam ED Vital Signs: Vital Signs - 24 hr 05/18/22 09:58 05/18/22 10:46 05/18/22 12:09 Temperature 97.5 F 97.6 F Pulse Rate 81 72 77 Respiratory Rate 21 H 18 14 Blood Pressure 153/77 H 141/72 H Pulse Oximetry 95 96 Oxygen Delivery Method Room Air Room Air 05/18/22 13:11 Temperature Pulse Rate Respiratory Rate Blood Pressure Pulse Oximetry 87 L Oxygen Delivery Method Room Air BMI result Body Mass Index 23.0 Const Other: Awake and alert. Somewhat disheveled thin frail looking male appears older than stated age Neck Other: No meningismus Resp Other: Bilateral expiratory wheezes with fair air entry Cardio Other: Regular rate and rhythm without murmurs rubs or gallops GI Other: Soft nontender nondistended. Normoactive bowel sounds Skin Other: Warm pink and dry without rash Neuro Other: No gross focal neuro deficits Extrem Other: No calf tenderness to palpation or pedal edema Course Course Course Narrative: Patient with general malaise secondary to COVID-19 infection. At risk for serious disease. Prior history of prolonged hospitalization secondary to COVID-19 in June of 2020. Rule out pneumonia IV fluids DuoNeb Solu-Medrol IV COVID swab here is positive. 12:04. Workup here shows a normal white count. Troponin is moderately elevated at 58 but this is very similar to prior values. Will repeat to look for a delta or trended. 14:07. Repeat troponin is trending down. Patient does desaturate with minimal effort however. Will hospitalized for further treatment Medical Decision Making Lab Data Result diagrams: 05/18/22 11:18 05/18/22 11:18 Labs: Lab Results 05/18/22 05/18/22 05/18/22 Range/Units 10:04 11:18 11:18 WBC 7.3 (4.8-10.8) X10*3/uL RBC 4.72 (4.60-5.80) X10*6/uL Hgb 13.5 L (14.0-18.0) g/dl Hct 41.0 L (42.0-52.0) % MCV 86.9 (80.0-98.0) fL MCH 28.6 (27.0-33.0) pg MCHC 32.9 (31.0-36.0) g/dl RDW 13.6 (11.0-16.0) % Plt Count 146 L (160-400) X10*3/uL MPV 8.8 L (9.4-12.4) fL Immature Gran % (Auto) 1.1 H (0.0-0.4) % Neut % (Auto) 69.8 (45-73) % Lymph % (Auto) 21.3 (20-40) % Lamar % (Auto) 5.7 (2-11) % Eos % (Auto) 1.4 (0-4) % Baso % (Auto) 0.7 (0-2) % Lymph # (Auto) 1.6 (1.2-4.9) X10*3/uL Lamar # (Auto) 0.4 (0.1-1.2) X10*3/uL Eos # (Auto) 0.1 (0.0-0.4) X10*3/uL Baso # (Auto) 0.1 (0.0-0.2) X10*3/uL Abs Immat Gran (auto) 0.08 H (0.00-0.03) X10*3/uL Absolute Neuts (auto) 5.1 (2.0-8.3) x10*3/uL Absolute Nucleated RBC 0.000 (0.0-0.012) X10*3/uL Nucleated RBC % (auto) 0.0 (0.0-0.2) /100WBC Smear Tech's Comments VERIFIED PT (10.0-13.1) SEC INR (0.9-1.1) D-Dimer High Sensitivty NG/ML Sodium 139 (135-145) mmol/L Potassium 4.3 (3.3-5.1) mmol/L Chloride 100 (96-108) mmol/L Carbon Dioxide 22 (22-29) mmol/L Anion Gap 21 H (12-20) BUN 29 H (9-16) mg/dL Creatinine 1.31 (0.5-1.4) mg/dL Estim Creat Clear Calc 58.8 Estimated GFR 54 Random Glucose 130 H (60-115) mg/dL Lactic Acid (0.5-2.0) mmol/L Calcium 8.5 D (8.4-10.2) mg/dL Total Bilirubin 0.6 (0.0-1.0) mg/dL AST 12 (5-37) U/L ALT 10 (0-40) U/L Alkaline Phosphatase 113 D (39-117) U/L Troponin I High Sens (<3.5-35.0) ng/L B-Natriuretic Peptide (<100) pg/mL Total Protein 6.7 D (6.5-8.0) g/dL Albumin 3.5 D (3.5-5.0) g/dL COVID-19 (REYNALDO) Positive A (Negative) COVID-19 Clin Com See Note 05/18/22 05/18/22 05/18/22 Range/Units 11:18 11:18 11:18 WBC (4.8-10.8) X10*3/uL RBC (4.60-5.80) X10*6/uL Hgb (14.0-18.0) g/dl Hct (42.0-52.0) % MCV (80.0-98.0) fL MCH (27.0-33.0) pg MCHC (31.0-36.0) g/dl RDW (11.0-16.0) % Plt Count (160-400) X10*3/uL MPV (9.4-12.4) fL Immature Gran % (Auto) (0.0-0.4) % Neut % (Auto) (45-73) % Lymph % (Auto) (20-40) % Lamar % (Auto) (2-11) % Eos % (Auto) (0-4) % Baso % (Auto) (0-2) % Lymph # (Auto) (1.2-4.9) X10*3/uL Lamar # (Auto) (0.1-1.2) X10*3/uL Eos # (Auto) (0.0-0.4) X10*3/uL Baso # (Auto) (0.0-0.2) X10*3/uL Abs Immat Gran (auto) (0.00-0.03) X10*3/uL Absolute Neuts (auto) (2.0-8.3) x10*3/uL Absolute Nucleated RBC (0.0-0.012) X10*3/uL Nucleated RBC % (auto) (0.0-0.2) /100WBC Smear Tech's Comments PT 11.8 (10.0-13.1) SEC INR 1.0 (0.9-1.1) D-Dimer High Sensitivty 478 NG/ML Sodium (135-145) mmol/L Potassium (3.3-5.1) mmol/L Chloride (96-108) mmol/L Carbon Dioxide (22-29) mmol/L Anion Gap (12-20) BUN (9-16) mg/dL Creatinine (0.5-1.4) mg/dL Estim Creat Clear Calc Estimated GFR Random Glucose (60-115) mg/dL Lactic Acid 0.9 (0.5-2.0) mmol/L Calcium (8.4-10.2) mg/dL Total Bilirubin (0.0-1.0) mg/dL AST (5-37) U/L ALT (0-40) U/L Alkaline Phosphatase (39-117) U/L Troponin I High Sens 58.1 H (<3.5-35.0) ng/L B-Natriuretic Peptide 275 H (<100) pg/mL Total Protein (6.5-8.0) g/dL Albumin (3.5-5.0) g/dL COVID-19 (REYNALDO) (Negative) COVID-19 Clin Com 05/18/22 Range/Units 13:34 WBC (4.8-10.8) X10*3/uL RBC (4.60-5.80) X10*6/uL Hgb (14.0-18.0) g/dl Hct (42.0-52.0) % MCV (80.0-98.0) fL MCH (27.0-33.0) pg MCHC (31.0-36.0) g/dl RDW (11.0-16.0) % Plt Count (160-400) X10*3/uL MPV (9.4-12.4) fL Immature Gran % (Auto) (0.0-0.4) % Neut % (Auto) (45-73) % Lymph % (Auto) (20-40) % Lamar % (Auto) (2-11) % Eos % (Auto) (0-4) % Baso % (Auto) (0-2) % Lymph # (Auto) (1.2-4.9) X10*3/uL Lamar # (Auto) (0.1-1.2) X10*3/uL Eos # (Auto) (0.0-0.4) X10*3/uL Baso # (Auto) (0.0-0.2) X10*3/uL Abs Immat Gran (auto) (0.00-0.03) X10*3/uL Absolute Neuts (auto) (2.0-8.3) x10*3/uL Absolute Nucleated RBC (0.0-0.012) X10*3/uL Nucleated RBC % (auto) (0.0-0.2) /100WBC Smear Tech's Comments PT (10.0-13.1) SEC INR (0.9-1.1) D-Dimer High Sensitivty NG/ML Sodium (135-145) mmol/L Potassium (3.3-5.1) mmol/L Chloride (96-108) mmol/L Carbon Dioxide (22-29) mmol/L Anion Gap (12-20) BUN (9-16) mg/dL Creatinine (0.5-1.4) mg/dL Estim Creat Clear Calc Estimated GFR Random Glucose (60-115) mg/dL Lactic Acid (0.5-2.0) mmol/L Calcium (8.4-10.2) mg/dL Total Bilirubin (0.0-1.0) mg/dL AST (5-37) U/L ALT (0-40) U/L Alkaline Phosphatase (39-117) U/L Troponin I High Sens 45.9 H (<3.5-35.0) ng/L B-Natriuretic Peptide (<100) pg/mL Total Protein (6.5-8.0) g/dL Albumin (3.5-5.0) g/dL COVID-19 (REYNALDO) (Negative) COVID-19 Clin Com Discharge Plan Discharge Patient Disposition: Admitted As Inpatient Prescriptions: No Action venlafaxine 75 mg capsule,extended release 24hr 75 cap PO DAILY venlafaxine 150 mg capsule,extended release 24hr 150 mg PO DAILY hydralazine 25 mg tablet 25 mg PO BID lovastatin 20 mg tablet 20 mg PO BEDTIME insulin lispro [Humalog U-100 Insulin] 100 unit/mL Solution See Protocol subcut QIDACHS Qty: 10 0RF Protocol: Insulin Correction Scale Less than or equal to 110 ---- Give (units): 0 111 to 150 Give (units): 0 151 to 200 Give (units): 2 201 to 250 Give (units): 4 251 to 300 Give (units): 8 301 to 350 Give (units): 10 Greater than 350 Give (units): 14 Call MD if Blood Glucose > : 350 Breo Ellipta 100-25 mcg/dose blister with device 1 inh inhalation Q24H Qty: 28 0RF ondansetron HCl [Zofran] 4 mg Tablet 4 mg PO Q8H PRN (Reason: Nausea) acetaminophen 650 mg Tablet 650 mg PO Q4H PRN (Reason: Cervical Ripening) alum-mag hydroxide-simeth [Ness-Lanta] 200-200-20 mg/5 mL Suspension 30 ml PO Q4H PRN (Reason: Indigestion) omeprazole 20 mg Capsule,Delayed Release(Dr/Ec) 20 mg PO BID@0630,1630 Qty: 60 0RF olanzapine 10 mg Tablet,Disintegrating 10 mg translingual BEDTIME Qty: 30 0RF glipizide 10 mg tablet 5 mg PO DAILY Qty: 0 0RF atenolol 50 mg tablet 50 mg PO DAILY Qty: 0 0RF
[2022-05-18] MEDS: Ipratropium Bromide 0.5 MG/2.5 ML SOLUTION INHALE (10:44)
[2022-05-18] MEDS: Albuterol Sulfate (0.083%) 2.5 MG/3 ML VIAL.NEB INHALE (10:44)
[2022-05-18 10:46] VITALS: PULSE 72; RESP 18; O2SAT 94
[2022-05-18] MEDS: 0.9 % Sodium Chloride 500 ML IV (11:22)
[2022-05-18] MEDS: methylPREDNISolone Sod Succ 125 MG/2 ML VIAL IVPUSH (11:23)
[2022-05-18 11:26] LABS: Basophils Absolute Auto 0.1 X10*3/uL (0.0-0.2); Basophils Percent Auto 0.7 % (0-2); Eosinophils Absolute Auto 0.1 X10*3/uL (0.0-0.4); Eosinophils Percent Auto 1.4 % (0-4); Hemoglobin 13.5 g/dl (14.0-18.0); Imm Gran Abs Auto 0.08 X10*3/uL (0.00-0.03); Imm Gran Pct Auto 1.1 % (0.0-0.4); Lymphocytes Absolute Auto 1.6 X10*3/uL (1.2-4.9); Lymphocytes Percent Auto 21.3 % (20-40); MANUAL DIFF FLAG SCAN; Mean Corpuscular HGB Conc 32.9 g/dl (31.0-36.0); Mean Corpuscular Hemoglobin 28.6 pg (27.0-33.0); Mean Corpuscular Volume 86.9 fL (80.0-98.0); Mean Platelet Volume 8.8 fL (9.4-12.4); Monocytes Absolute Auto 0.4 X10*3/uL (0.1-1.2); Monocytes Percent Auto 5.7 % (2-11); Neutrophils Absolute Auto 5.1 x10*3/uL (2.0-8.3); Neutrophils Percent Auto 69.8 % (45-73); Platelet Count 146 X10*3/uL (160-400); Red Blood Count 4.72 X10*6/uL (4.60-5.80); Red Cell Distribution Width 13.6 % (11.0-16.0); SCAN SMEAR FLAG 1; White Blood Count 7.3 X10*3/uL (4.8-10.8)
[2022-05-18 11:30] LABS: Prothrombin Time 11.8 SEC (10.0-13.1)
[2022-05-18 11:32] LABS: D Dimer High Sensitivity 478 NG/ML
[2022-05-18 11:36] LABS: Lactic Acid 0.9 mmol/L (0.5-2.0)
[2022-05-18 11:41] LABS: Alanine Aminotransferase 10 U/L (0-40); Albumin Level 3.5 g/dL (3.5-5.0); Alkaline Phosphatase 113 U/L (39-117); Anion Gap 21 (12-20); Aspartate Amino Transferase 12 U/L (5-37); Bilirubin Total 0.6 mg/dL (0.0-1.0); Blood Urea Nitrogen 29 mg/dL (9-16); Calcium 8.5 mg/dL (8.4-10.2); Carbon Dioxide 22 mmol/L (22-29); Chloride 100 mmol/L (96-108); Creatinine Clr Calc Pharmacy 58.8; Estimated Glomerular Filt Rate 54; Glucose Random 130 mg/dL (60-115); Potassium 4.3 mmol/L (3.3-5.1); Sodium 139 mmol/L (135-145); Total Protein 6.7 g/dL (6.5-8.0)
[2022-05-18 11:44] LABS: SLIDE REVIEW VERIFIED
[2022-05-18 11:47] LABS: B Type Natriuretic Peptide 275 pg/mL (<100); Troponin-I High Sensitivity 58.1 ng/L (<3.5-35.0)
[2022-05-18 12:09] VITALS: BP 141/72; PULSE 77; RESP 14; TEMP 36.4; O2SAT 96
[2022-05-18 13:11] VITALS: O2SAT 87
--- NOTE | 2022-05-18 13:13 | PC.NURSE ---
Trial ambulation with pt. Pt has very unsteady gait. O2 monitored throughout ambulation, resting O2: 94%, sitting on edge of bed O2 91%, standing O2 90%, ambulating a couple steps: O2 88%
[2022-05-18 14:01] LABS: Troponin-I High Sensitivity 45.9 ng/L (<3.5-35.0)
[2022-05-18 14:33] VITALS: BP 155/79; PULSE 72; RESP 14; TEMP 36.4; O2SAT 95
--- NOTE | 2022-05-18 15:01 | PHA.MEDREC ---
Pharmacy Consult ? Medication Reconciliation Pharmacy has completed the medication reconciliation. Per patient's , patient only takes insulin when sugar over 250 Jorge
--- NOTE | 2022-05-18 15:31 | PM.IMHP ---
History of Present Illness Date of Service: 05/18/22 Attending physician on admission: Serge Davis Chief Complaint: generalized weakness 66-year-old gentleman with past medical history significant for COPD not on home oxygen, history of CVA, diabetes mellitus type 2, history of hypertension history of COVID infection and 2020 presented to [facility] with symptoms of generalized weakness that started 3 days ago associated with mild cough, he denies associated shortness of breath, no chest pain, no palpitation denies headache, no lightheadedness, denies nausea vomiting diarrhea patient also diagnosed to have COVID infection Review of Systems Review of Systems: General no headache, no dizziness no fever chills. CVS no chest pain, no palpitation. Respiratory dry cough , no shortness of breath Gastrointestinal no nausea no vomiting, no abdominal pain no urinary urgency, no frequency musculoskeletal no pain Yes all other systems are reviewed and are negative [facility] Medical History Abnormal EKG Blood bacterial culture positive COPD (chronic obstructive pulmonary disease) COVID-19 COVID-19 CVA (cerebral vascular accident) Diabetes Diabetes mellitus type 1 Dizziness Hypertension NSTEMI (non-ST elevated myocardial infarction) Pertinent family history: mother of lung cancer, not aware of father's medical history Surgical History History of percutaneous coronary intervention Social History Household Members: Spouse Housing: Apartment Do you presently have visiting nurse or other home services: No Alcohol intake: never Second Hand Smoke Exposure: No Advance Directives: Yes Advance Directives on File: Yes Advance Directives Date on File: 05/31/20 service: No Current occupational status: retired Meds Allergies Allergy/AdvReac Type Severity Reaction Status Date / Time No Known Allergies Allergy Unknown NKA Verified 07/05/20 17:17 Active Medications: Current Medications Acetaminophen (Acetaminophen 325 Mg Tablet) 650 mg PO Q6H PRN PRN Reason: Pain, Mild (Pain Scale 1-3) Aspirin (Aspirin Enteric Coated 81 Mg Tablet.Dr) 81 mg PO DAILY RASHI Atenolol (Atenolol 50 Mg Tablet) 50 mg PO DAILY RASHI; Protocol Benzonatate (Benzonatate 100 Mg Capsule) 100 mg PO TID PRN PRN Reason: Cough Dexamethasone Sodium Phosphate (Dexamethasone Sod Phosphate 4 Mg/Ml Vial) 6 mg IVPUSH DAILY [facility] Enoxaparin Sodium (Enoxaparin Sodium 40 Mg/0.4 Ml Syringe) 40 mg SUBCUT Q24H RASHI Glipizide (Glipizide 5 Mg Tablet) 5 mg PO BID RASHI Hydralazine HCl (Hydralazine Hcl 25 Mg Tablet) 25 mg PO BID RASHI; Protocol Lorazepam (Lorazepam 0.5 Mg Tablet) 0.5 mg PO BID PRN PRN Reason: anxiety Melatonin (Melatonin 3 Mg Tablet) 3 mg PO BEDTIME PRN PRN Reason: Insomnia Non-Formulary Medication (Lovastatin) 20 mg PO BEDTIME RASHI Olanzapine (Olanzapine 10 Mg Tablet) 20 mg PO BEDTIME RASHI Ondansetron HCl (Ondansetron Hcl 4 Mg/2 Ml Vial) 4 mg IVPUSH Q8H PRN PRN Reason: Nausea and Vomiting Sodium Chloride (0.9 % Sodium Chloride Flush 3 Ml Syringe) 3 ml IVFLUSH QSHIFT [facility] Venlafaxine HCl (Venlafaxine Hcl Er 75 Mg Cap.Er.24h) 5,625 mg PO DAILY [facility] Venlafaxine HCl (Venlafaxine Hcl Er 150 Mg Cap.Er.24h) 150 mg PO DAILY [facility] Home Medications Medication Instructions Recorded Confirmed Last Taken Type hydralazine 25 mg tablet 25 mg PO BID 06/06/20 05/18/22 05/17/22 History lovastatin 20 mg tablet 20 mg PO BEDTIME 06/06/20 05/18/22 05/17/22 History venlafaxine 150 mg 150 mg PO DAILY 06/06/20 05/18/22 05/17/22 History capsule,extended release 24 hr venlafaxine 75 mg capsule,extended 75 cap PO DAILY 06/06/20 05/18/22 05/17/22 History release 24 hr aspirin 81 mg tablet,delayed 1 tab PO DAILY 05/18/22 05/18/22 05/17/22 History release glipizide 5 mg tablet 1 tab PO BID 05/18/22 05/18/22 05/17/22 History lorazepam 0.5 mg tablet 1 tab PO BID PRN anxiety 05/18/22 05/18/22 05/17/22 History olanzapine 20 mg tablet 1 tab PO BEDTIME 05/18/22 05/18/22 05/17/22 History Physical Exam Vital Signs and Narrative: Vital Signs: Last Vital Signs Temp 97.5 F 05/18/22 14:33 Pulse 72 05/18/22 14:33 Resp 14 05/18/22 14:33 BP 155/79 H 05/18/22 14:33 Pulse Ox 95 05/18/22 14:33 O2 Del Method 05/18/22 14:33 BMI result Body Mass Index 23.0 Const: Other: General awake alert x3, in no acute distress. HEENT pupil equal round reactive to light and accommodation extraocular muscles intact. Neck supple no JVD. CVS regular rate rhythm, Respiratory lungs clear to auscultation, no respiratory distress, no wheeze, no rhonchi. Gastrointestinal abdomen soft, nontender, bowel sounds audible, no guarding , no rigidity. Extremities no edema. Neuro nonfocal Skin no rash Psych appropriate affect Results Labs CBC and Chem 7: 05/18/22 11:18 05/18/22 11:18 Labs: Laboratory Results - last 24 hr 05/18/22 05/18/22 05/18/22 10:04 11:18 11:18 MCV 86.9 MCH 28.6 MCHC 32.9 RDW 13.6 Plt Count 146 L MPV 8.8 L Immature Gran % (Auto) 1.1 H Neut % (Auto) 69.8 Lymph % (Auto) 21.3 [place] % (Auto) 5.7 Eos % (Auto) 1.4 Baso % (Auto) 0.7 Lymph # (Auto) 1.6 [place] # (Auto) 0.4 Eos # (Auto) 0.1 Baso # (Auto) 0.1 Abs Immat Gran (auto) 0.08 H Absolute Neuts (auto) 5.1 Absolute Nucleated RBC 0.000 Nucleated RBC % (auto) 0.0 Smear Tech's Comments VERIFIED PT INR D-Dimer High Sensitivty Anion Gap 21 H Estim Creat Clear Calc 58.8 Estimated GFR 54 Random Glucose 130 H Lactic Acid Calcium 8.5 D Total Bilirubin 0.6 AST 12 ALT 10 Alkaline Phosphatase 113 D B-Natriuretic Peptide Total Protein 6.7 D Albumin 3.5 D COVID-19 (REYNALDO) Positive A COVID-19 Clin Com See Note 05/18/22 05/18/2205/18/22 11:18 11:18 11:18 MCV MCH MCHC RDW Plt Count MPV Immature Gran % (Auto) Neut % (Auto) Lymph % (Auto) [place] % (Auto) Eos % (Auto) Baso % (Auto) Lymph # (Auto) [place] # (Auto) Eos # (Auto) Baso # (Auto) Abs Immat Gran (auto) Absolute Neuts (auto) Absolute Nucleated RBC Nucleated RBC % (auto) Smear Tech's Comments PT 11.8 INR 1.0 D-Dimer High Sensitivty 478 Anion Gap Estim Creat Clear Calc Estimated GFR Random Glucose Lactic Acid 0.9 Calcium Total Bilirubin AST ALT Alkaline Phosphatase B-Natriuretic Peptide 275 H Total Protein Albumin COVID-19 (REYNALDO) COVID-19 Clin Com Imaging Radiologist's Impressions: Impressions Chest X-Ray 05/18/22 10:30 IMPRESSION: Unremarkable examination. Assessment and Plan (1) COVID-19: Status: Acute (2) Acute respiratory failure with hypoxia: Status: Acute Plan 66-year-old gentleman with past medical history significant for diabetes mellitus type 2, coronary artery disease, COPD, CVA with left-sided weakness, depression, hypertension, hyperlipidemia presented to [facility] with generalized weakness and diagnosed to have COVID-19 infection with hypoxia finger oximetry dropped to 87% with minimal exertion. Acute hypoxic respiratory failure due to COVID-19 infection, no acute COPD exacerbation, Chest x-ray showed no acute abnormality, noted will place patient on IV steroid O2 support and cough medication generalized weakness likely due to COVID infection noted to have normal CBC and renal function, follow clinical course diabetes mellitus type 2 cont home medications glipizide 5 mg b.i.d. placed on diabetic diet and add insulin sliding scale hyperlipidemia continue statin coronary artery disease no symptoms of chest pain continue atenolol, statins and aspirin DVT prophylaxis with Lovenox code status full code patient will need 2 night inpatient stay at hospital due to acute hypoxic respiratory failure related to COVID-19 infection on IV steroids care cannot provided at less acute setting. Quality Stroke Does the patient have a stroke diagnosis?: No VTE Prior VTE?: No VTE Risk Level:: Medical - moderate - high VTE Device Contraindication: Treatment Not Indicated VTE Drug Contraindication: N/A - Med Ordered
[2022-05-18] MEDS: Enoxaparin Sodium 40 MG/0.4 ML SYRINGE SUBCUT (15:53)
[2022-05-18] MEDS: 0.9 % Sodium Chloride Flush 3 ML SYRINGE IVFLUSH ×2 (15:53→23:01)
[2022-05-18 17:15] LABS: Glucose, Whole Blood 248 mg/dL (60-115)
[2022-05-18 17:44] VITALS: BP 127/91; PULSE 79; RESP 11; TEMP 37.2; O2SAT 93
[2022-05-18] MEDS: Insulin Lispro 100 UNIT/ML 3 ML VIAL SUBCUT ×2 (18:28→21:55)
[2022-05-18] MEDS: Pravastatin Sodium 20 MG TABLET PO (21:54)
[2022-05-18] MEDS: OLANZapine 10 MG TABLET 20 MG PO (21:54)
[2022-05-18] MEDS: hydrALAZINE HCl 25 MG TABLET PO (21:54)
[2022-05-18 22:18] LABS: Glucose, Whole Blood 371 mg/dL (60-115)
--- NOTE | 2022-05-18 22:39 | MHC.CM.PN ---
IMM 05/18. Met with admitted pt with bed assignment pending. +Covid. Second time with Covid. Vaccinated x1. [facility] [place] [facility]CP/ Savana Hollingsworth ([phone]). HCP on file. Lives with . Uses walker. No services. D/C plan: Home without services. Pt will arrange transportation. CM to follow for d/c needs.
[2022-05-18] MEDS: glipiZIDE 5 MG TABLET PO (22:59)
[2022-05-18 23:11] LABS: Appearance Urine Clear; Color Urine Yellow; Glucose Urine UA >=1000 mg/dL (Negative); Leukocyte Esterase Urine Negative (Negative); Nitrite Urine Negative (Negative); PH 5.5 (5.0-9.0); Specific Gravity - Urine 1.025 (1.005-1.025); UMIC TRIGGER UACC YES; Urine Blood Trace (Negative); Urine Ketones >=160 mg/dL (Negative); Urine Protein 300 (3+) mg/dL (Neg-Trace)
[2022-05-18 23:21] LABS: Bacteria Urine None Seen (None Seen); Hyaline Casts Urine 0-2 /LPF (0-2); RBC Urine 0-2 /HPF (0-2); Squamous Epithelial Cell Urine 0-2 /HPF (0-2); WBC Urine 0-5 /HPF (0-5)
[2022-05-19] VITALS (7 sets, daily range): BP systolic 131–150; BP diastolic 60–87; PULSE 52–94; RESP 12–19; TEMP 36.6–36.8; O2SAT 92–97; BMI 23.0
[2022-05-19 07:44] LABS: Glucose, Whole Blood 166 mg/dL (60-115)
[2022-05-19] MEDS: hydrALAZINE HCl 25 MG TABLET PO ×2 (08:05→21:03)
[2022-05-19] MEDS: atenoloL 50 MG TABLET PO (08:05)
[2022-05-19] MEDS: Venlafaxine HCl ER 150 MG CAP.ER.24H PO (08:06)
[2022-05-19] MEDS: Aspirin Enteric Coated 81 MG TABLET.DR PO (08:06)
[2022-05-19] MEDS: 0.9 % Sodium Chloride Flush 3 ML SYRINGE IVFLUSH ×3 (08:08→21:03)
[2022-05-19] MEDS: dexAMETHasone sod phosphate 4 MG/ML VIAL 6 MG IVPUSH (08:08)
[2022-05-19] MEDS: Insulin Lispro 100 UNIT/ML 3 ML VIAL SUBCUT ×4 (08:12→21:03)
[2022-05-19] MEDS: glipiZIDE 5 MG TABLET PO ×2 (08:51→21:03)
[2022-05-19] MEDS: Venlafaxine HCl ER 75 MG CAP.ER.24H PO (08:51)
[2022-05-19 12:53] LABS: Glucose, Whole Blood 199 mg/dL (60-115)
--- NOTE | 2022-05-19 14:39 | P.PNIM_ITS ---
Subjective Subjective Date of Service: 05/19/22 Interval History: being followed for COVID infection and hypoxic respiratory failure, patient complaining of mild shortness of breath and cough, complaining of persistent generalized weakness, denies fever chills, no nausea, no vomiting, no abdominal pain or diarrhea tolerating diet no acute events since admission. Review of Systems Review of Systems: Yes all other systems are reviewed and are negative Physical Exam Vital Signs: Vital Signs: Last Vital Signs Temp 97.8 F 05/19/22 08:02 Pulse 52 05/19/22 13:41 Resp 16 05/19/22 13:41 BP 150/75 H 05/19/22 13:41 Pulse Ox 96 05/19/22 13:41 O2 Del Method 05/19/22 13:41 BMI result Body Mass Index 23.0 Const: Other: General? awake alert x3, in no acute distress.? Neck supple no JVD. CVS? regular rate rhythm, Respiratory lungs clear to auscultation, no respiratory distress, no wheeze, no rhonchi. Gastrointestinal abdomen soft, nontender, bowel sounds audible, no guarding , no rigidity. Extremities no edema. Neuro nonfocal Skin no rash Psych appropriate affect Objective Data Active Medications Acetaminophen (Acetaminophen 325 Mg Tablet) 650 mg PO Q6H PRN PRN Reason: Pain, Mild (Pain Scale 1-3) Aspirin (Aspirin Enteric Coated 81 Mg Tablet.Dr) 81 mg PO DAILY [facility] Last Admin: 05/19/22 08:06 Dose: 81 mg Documented By: RYNE Atenolol (Atenolol 50 Mg Tablet) 50 mg PO DAILY [facility]; Protocol Last Admin: 05/19/22 08:05 Dose: 50 mg Documented By: RYNE Benzonatate (Benzonatate 100 Mg Capsule) 100 mg PO TID PRN PRN Reason: Cough Dextrose (Dextrose 50 % 25 Gm/50 Ml Syringe) 25 gm IVPUSH Q15M PRN; Protocol PRN Reason: per Hypoglycemia Standing Ord. Enoxaparin Sodium (Enoxaparin Sodium 40 Mg/0.4 Ml Syringe) 40 mg SUBCUT Q24H [facility] Last Admin: 05/18/22 15:53 Dose: 40 mg Documented By: ANTONI Glipizide (Glipizide 5 Mg Tablet) 5 mg PO BID [facility] Last Admin: 05/19/22 08:51 Dose: 5 mg Documented By: MATHEW Glucose (Glucose Gel 15 Gm Gel..Gram.) 15 gm PO Q15M PRN; Protocol PRN Reason: per Hypoglycemia Standing Ord. Hydralazine HCl (Hydralazine Hcl 25 Mg Tablet) 25 mg PO BID [facility]; Protocol Last Admin: 05/19/22 08:05 Dose: 25 mg Documented By: RYNE Insulin Human Lispro (Insulin Lispro 100 Unit/Ml 3 Ml Vial) 0 unit SUBCUT QIDACHS [facility]; Protocol Last Admin: 05/19/22 13:44 Dose: 2 unit Documented By: RYNE Lorazepam (Lorazepam 0.5 Mg Tablet) 0.5 mg PO BID PRN PRN Reason: anxiety Melatonin (Melatonin 3 Mg Tablet) 3 mg PO BEDTIME PRN PRN Reason: Insomnia Olanzapine (Olanzapine 10 Mg Tablet) 20 mg PO BEDTIME [facility] Last Admin: 05/18/22 21:54 Dose: 20 mg Documented By: BOYD Ondansetron HCl (Ondansetron Hcl 4 Mg/2 Ml Vial) 4 mg IVPUSH Q8H PRN PRN Reason: Nausea and Vomiting Pravastatin Sodium (Pravastatin Sodium 20 Mg Tablet) 20 mg PO BEDTIME [facility] Last Admin: 05/18/22 21:54 Dose: 20 mg Documented By: BOYD Sodium Chloride (0.9 % Sodium Chloride Flush 3 Ml Syringe) [facility] Last Admin: 05/19/22 08:08 Dose: 3 ml Documented By: RYNE Venlafaxine HCl (Venlafaxine Hcl Er 150 Mg Cap.Er.24h) 150 mg PO DAILY [facility] Last Admin: 05/19/22 08:06 Dose: 150 mg Documented By: RYNE Venlafaxine HCl (Venlafaxine Hcl Er 75 Mg Cap.Er.24h) 75 mg PO DAILY [facility] Last Admin: 05/19/22 08:51 Dose: 75 mg Documented By: MATHEW Labs CBC & Chem 7: 05/18/22 11:18 05/18/22 11:18 Labs: Laboratory Results - last 24 hr 05/18/22 05/18/22 05/18/22 17:09 21:42 23:04 POC Glucose 248 H 371 H* Urine Color Yellow Urine Appearance Clear Urine pH 5.5 Ur Specific [place] 1.025 Urine Protein 300 (3+) H Urine Glucose (UA) >=1000 H Urine Ketones >=160 Urine Blood Trace H Urine Nitrite Negative Ur Leukocyte Esterase Negative Urine RBC 0-2 Urine WBC 0-5 Ur Squamous Epith Cells 0-2 Urine Bacteria None Seen Hyaline Casts 0-2 05/19/22 05/19/22 07:31 12:49 POC Glucose 166 H 199 H Urine Color Urine Appearance Urine pH Ur Specific [place] Urine Protein Urine Glucose (UA) Urine Ketones Urine Blood Urine Nitrite Ur Leukocyte Esterase Urine RBC Urine WBC Ur Squamous Epith Cells Urine Bacteria Hyaline Casts Microbiology Microbiology Results: Microbiology 05/18/22 11:48 Blood Culture - Preliminary Blood - Venous No growth after 24 hours. 05/18/22 11:18 Blood Culture - Preliminary Blood - Venous No growth after 24 hours. Assessment and Plan (1) Acute respiratory failure with hypoxia: Status: Acute (2) COVID-19: Status: Acute (3) Weakness: Status: Acute Plan 66-year-old gentleman with past medical history significant for diabetes mellitus type 2, coronary artery disease, COPD, CVA with left-sided weakness, depression, hypertension, hyperlipidemia presented to [facility] with generalized weakness and diagnosed to have COVID-19 infection with hypoxia finger oximetry dropped to 87% with minimal exertion. ? Acute hypoxic respiratory failure due to COVID-19 infection, no acute COPD exacerbation,? Chest x-ray showed no acute abnormality, Continue IV steroid O2 support and cough medication, not on home oxygen, will ambulate and assess for home oxygen ? generalized weakness likely due to COVID infection noted? to have normal CBC and renal function, follow clinical course, obtain PT eval ?diabetes mellitus type 2 cont home medications glipizide 5 mg b.i.d. on diabetic diet and insulin sliding scale, blood sugars elevated, adjust insulin sliding scale ?hyperlipidemia continue statin ?coronary artery disease no symptoms of chest pain continue atenolol, statins and aspirin ?DVT prophylaxis with Lovenox ?code status full code ?patient will need continuedinpatient stay at hospital due to acute hypoxic respiratory failure? related to COVID-19 infection on IV steroids and oxygen. Quality Stroke Does the patient have a stroke diagnosis?: No VTE Prior VTE?: No VTE Risk Level:: Medical - moderate - high VTE Device Contraindication: Treatment Not Indicated VTE Drug Contraindication: N/A - Med Ordered
--- NOTE | 2022-05-19 16:33 | PC.NURSE ---
RN-RN report called into [facility].
[2022-05-19] MEDS: Enoxaparin Sodium 40 MG/0.4 ML SYRINGE SUBCUT (17:03)
[2022-05-19 17:36] LABS: Glucose, Whole Blood 266 mg/dL (60-115)
[2022-05-19 20:00] LABS: Glucose, Whole Blood 233 mg/dL (60-115)
[2022-05-19] MEDS: Pravastatin Sodium 20 MG TABLET PO (21:03)
[2022-05-19] MEDS: OLANZapine 10 MG TABLET 20 MG PO (21:03)
--- NOTE | 2022-05-19 23:17 | W.PM.IDCN ---
History of Present Illness Data of Consult Service Date: 05/19/22 Requesting physician: Serge Davis Primary Care Provider: Unknown Physician HPI Reason for consult: fatigue,COVID He presents with fatigue and malaise for three days. He has COVID. He is not hypoxic. Review of Systems Review of Systems: Yes all other systems are reviewed and are negative PMFSH Past Medical History Medical History Abnormal EKG Blood bacterial culture positive COPD (chronic obstructive pulmonary disease) COVID-19 COVID-19 CVA (cerebral vascular accident) Diabetes Diabetes mellitus type 1 Dizziness Hypertension NSTEMI (non-ST elevated myocardial infarction) Family History Family history: reviewed and not pertinent Surgical History Surgical History History of percutaneous coronary intervention Social History Social History Household Members: Spouse Housing: Apartment Do you presently have visiting nurse or other home services: No Alcohol intake: never Patient Tobacco Use Status: Never used Tobacco e-Cigarette/Vaping Use: Never Used Second Hand Smoke Exposure: No Advance Directives Date on File: 05/31/20 service: No Current occupational status: retired Meds Allergies Allergy/AdvReac Type Severity Reaction Status Date / Time No Known Allergies Allergy Unknown NKA Verified 07/05/20 17:17 Active Medications: Current Medications Acetaminophen (Acetaminophen 325 Mg Tablet) 650 mg PO Q6H PRN PRN Reason: Pain, Mild (Pain Scale 1-3) Aspirin (Aspirin Enteric Coated 81 Mg Tablet.) 81 mg PO DAILY [facility] Last Admin: 05/19/22 08:06 Dose: 81 mg Atenolol (Atenolol 50 Mg Tablet) 50 mg PO DAILY [facility]; Protocol Last Admin: 05/19/22 08:05 Dose: 50 mg Benzonatate (Benzonatate 100 Mg Capsule) 100 mg PO TID PRN PRN Reason: Cough Dextrose (Dextrose 50 % 25 Gm/50 Ml Syringe) 25 gm IVPUSH Q15M PRN; Protocol PRN Reason: per Hypoglycemia Standing Ord. Enoxaparin Sodium (Enoxaparin Sodium 40 Mg/0.4 Ml Syringe) 40 mg SUBCUT Q24H [facility] Last Admin: 05/19/22 17:03 Dose: 40 mg Glipizide (Glipizide 5 Mg Tablet) 5 mg PO BID [facility] Last Admin: 05/19/22 21:03 Dose: 5 mg Glucose (Glucose Gel 15 Gm Gel..Gram.) 15 gm PO Q15M PRN; Protocol PRN Reason: per Hypoglycemia Standing Ord. Hydralazine HCl (Hydralazine Hcl 25 Mg Tablet) 25 mg PO BID [facility]; Protocol Last Admin: 05/19/22 21:03 Dose: 25 mg Insulin Human Lispro (Insulin Lispro 100 Unit/Ml 3 Ml Vial) 0 unit SUBCUT QIDACHS [facility]; Protocol Last Admin: 05/19/22 21:03 Dose: 4 unit Lorazepam (Lorazepam 0.5 Mg Tablet) 0.5 mg PO BID PRN PRN Reason: anxiety Melatonin (Melatonin 3 Mg Tablet) 3 mg PO BEDTIME PRN PRN Reason: Insomnia Olanzapine (Olanzapine 10 Mg Tablet) 20 mg PO BEDTIME [facility] Last Admin: 05/19/22 21:03 Dose: 20 mg Ondansetron HCl (Ondansetron Hcl 4 Mg/2 Ml Vial) 4 mg IVPUSH Q8H PRN PRN Reason: Nausea and Vomiting Pravastatin Sodium (Pravastatin Sodium 20 Mg Tablet) 20 mg PO BEDTIME [facility] Last Admin: 05/19/22 21:03 Dose: 20 mg Sodium Chloride (0.9 % Sodium Chloride Flush 3 Ml Syringe) [facility] Last Admin: 05/19/22 21:03 Dose: 3 ml Venlafaxine HCl (Venlafaxine Hcl Er 150 Mg Cap.Er.24h) 150 mg PO DAILY [facility] Last Admin: 05/19/22 08:06 Dose: 150 mg Venlafaxine HCl (Venlafaxine Hcl Er 75 Mg Cap.Er.24h) 75 mg PO DAILY [facility] Last Admin: 05/19/22 08:51 Dose: 75 mg Home Medications Medication Instructions Recorded Confirmed Last Taken Type hydralazine 25 mg tablet 25 mg PO BID 06/06/20 05/18/22 05/17/22 History lovastatin 20 mg tablet 20 mg PO BEDTIME 06/06/20 05/18/22 05/17/22 History venlafaxine 150 mg 150 mg PO DAILY 06/06/20 05/18/22 05/17/22 History capsule,extended release 24 hr venlafaxine 75 mg capsule,extended 75 cap PO DAILY 06/06/20 05/18/22 05/17/22 History release 24 hr aspirin 81 mg tablet,delayed 1 tab PO DAILY 05/18/22 05/18/22 05/17/22 History release glipizide 5 mg tablet 1 tab PO BID 05/18/22 05/18/22 05/17/22 History lorazepam 0.5 mg tablet 1 tab PO BID PRN anxiety 05/18/22 05/18/22 05/17/22 History olanzapine 20 mg tablet 1 tab PO BEDTIME 05/18/22 05/18/22 05/17/22 History Physical Exam Vital Signs: Vital Signs: Last Vital Signs Temp 97.8 F 05/19/22 19:20 Pulse 76 05/19/22 19:20 Resp 18 05/19/22 19:20 BP 139/66 05/19/22 19:20 Pulse Ox 92 05/19/22 19:20 O2 Del Method 05/19/22 19:20 BMI result Body Mass Index 23.0 Const: General: cooperative HEENT: Head: Yes normal to inspection Face and sinus: Yes normal facial exam Mouth: Normal oral and palatal mucosa present Teeth and gingiva: dentition normal Eyes: General: appearance normal, both eyes and all related structures Pupils: Equal, round and reactive pupils present Resp: Effort & Inspection: normal respiratory effort Cardio: Rate: regular rate Rhythm: regular rhythm GI: Palpation (GI): Soft to palpation and nontender : General: Yes no CVA tenderness Back/Spine/Pelvis: Back: no CVA tenderness Skin: General skin exam: no rashes or lesions noted Neuro: General: moves all extremities Cranial nerves: Yes Equal, round and reactive pupils present Extrem: General: Yes normal to inspection Psych: Appearance: grossly normal Results Labs CBC & Chem 7: 05/18/22 11:18 05/18/22 11:18 Labs: Urine 05/18/22 Range/Units 23:04 Urine Color Yellow Urine Appearance Clear Urine pH 5.5 (5.0-9.0) Ur Specific [place] 1.025 (1.005-1.025) Urine Protein 300 (3+) H (Neg-Trace) mg/dL Urine Glucose (UA) >=1000 H (Negative) mg/dL Microbiology Microbiology Results: Microbiology 05/18/22 11:48 Blood - Venous Blood Culture - Preliminary No growth after 24 hours. 05/18/22 11:18 Blood - Venous Blood Culture - Preliminary No growth after 24 hours. Assessment and Plan (1) COVID-19: Status: Acute COVID No hypoxia at this time,saturation in 90s He has some fatigue related to this Plan Would follow symptomatically. No steroids if not hypoxic. No need for antibiotics
[2022-05-20 03:46] VITALS: BP 178/90; PULSE 63; RESP 20; TEMP 36.4; O2SAT 95
[2022-05-20 07:50] LABS: Glucose, Whole Blood 103 mg/dL (60-115)
[2022-05-20 08:00] VITALS: BP 188/79; PULSE 57; RESP 18; TEMP 36.1; O2SAT 95
[2022-05-20] MEDS: 0.9 % Sodium Chloride Flush 3 ML SYRINGE IVFLUSH ×3 (09:27→20:42)
[2022-05-20] MEDS: Aspirin Enteric Coated 81 MG TABLET.DR PO (09:28)
[2022-05-20] MEDS: glipiZIDE 5 MG TABLET PO ×2 (09:28→20:41)
[2022-05-20] MEDS: atenoloL 50 MG TABLET PO (09:28)
[2022-05-20] MEDS: Venlafaxine HCl ER 75 MG CAP.ER.24H PO (09:28)
[2022-05-20] MEDS: Venlafaxine HCl ER 150 MG CAP.ER.24H PO (09:29)
[2022-05-20] MEDS: hydrALAZINE HCl 25 MG TABLET PO ×2 (09:29→20:41)
--- NOTE | 2022-05-20 10:37 | MHC.CM.PN ---
Addendum entered by Ginette Bowling 05/20/22 11:43: PATIENT HAS BEEN SEEN BY PT AND STR IS RECOMMENDED. PATIENT IS COVID + BROAD REFERRAL SENT Original Note: CM RECEIVED A CALL YESTERDAY FROM PTS [id number], WHO REPORTS THE PT CANNOT GO HOME AT [place]. SHE HOPES THAT HE CAN GO TO STR.
[2022-05-20 11:14] VITALS: BP 113/70; PULSE 65; RESP 16; TEMP 36.3; O2SAT 95
[2022-05-20 11:24] LABS: Glucose, Whole Blood 220 mg/dL (60-115)
[2022-05-20] MEDS: Insulin Lispro 100 UNIT/ML 3 ML VIAL SUBCUT ×3 (11:30→20:42)
--- NOTE | 2022-05-20 14:19 | P.PNIM_ITS ---
Subjective Subjective Date of Service: 05/20/22 Interval History: resting comfortably complaining of generalized weakness, wants to visit his was also admitted to hospital with COVID, complaining of shortness of breath with activity otherwise no shortness of breath at rest denies fever chills, no headache, no dizziness, no nausea, no vomiting tolerating diet no other acute issues overnight. Review of Systems Review of Systems: Yes all other systems are reviewed and are negative Physical Exam Vital Signs: Vital Signs: Last Vital Signs Temp 97.4 F 05/20/22 11:14 Pulse 65 05/20/22 11:14 Resp 16 05/20/22 11:14 BP 113/70 05/20/22 11:14 Pulse Ox 95 05/20/22 11:14 O2 Del Method 05/20/22 11:14 BMI result Body Mass Index 23.0 Const: Other: General? awake alert x3, in no acute distress.? Neck supple no JVD. CVS? regular rate rhythm, Respiratory lungs clear to auscultation, no respiratory distress, no wheeze, no rhonchi. Gastrointestinal abdomen soft, nontender, bowel sounds audible, no guarding , no rigidity. Extremities no edema. Neuro nonfocal Skin no rash Psych appropriate affect Objective Data Active Medications Acetaminophen (Acetaminophen 325 Mg Tablet) 650 mg PO Q6H PRN PRN Reason: Pain, Mild (Pain Scale 1-3) Aspirin (Aspirin Enteric Coated 81 Mg Tablet.) 81 mg PO DAILY [facility] Last Admin: 05/20/22 09:28 Dose: 81 mg Documented By: NAGA Atenolol (Atenolol 50 Mg Tablet) 50 mg PO DAILY [facility]; Protocol Last Admin: 05/20/22 09:28 Dose: 50 mg Documented By: NAGA Benzonatate (Benzonatate 100 Mg Capsule) 100 mg PO TID PRN PRN Reason: Cough Dextrose (Dextrose 50 % 25 Gm/50 Ml Syringe) 25 gm IVPUSH Q15M PRN; Protocol PRN Reason: per Hypoglycemia Standing Ord. Enoxaparin Sodium (Enoxaparin Sodium 40 Mg/0.4 Ml Syringe) 40 mg SUBCUT Q24H [facility] Last Admin: 05/19/22 17:03 Dose: 40 mg Documented By: JUSTIN Glipizide (Glipizide 5 Mg Tablet) 5 mg PO BID [facility] Last Admin: 05/20/22 09:28 Dose: 5 mg Documented By: NAGA Glucose (Glucose Gel 15 Gm Gel..Gram.) 15 gm PO Q15M PRN; Protocol PRN Reason: per Hypoglycemia Standing Ord. Hydralazine HCl (Hydralazine Hcl 25 Mg Tablet) 25 mg PO BID [facility]; Protocol Last Admin: 05/20/22 09:29 Dose: 25 mg Documented By: NAGA Insulin Human Lispro (Insulin Lispro 100 Unit/Ml 3 Ml Vial) 0 unit SUBCUT QIDACHS [facility]; Protocol Last Admin: 05/20/22 11:30 Dose: 4 unit Documented By: NAGA Lorazepam (Lorazepam 0.5 Mg Tablet) 0.5 mg PO BID PRN PRN Reason: anxiety Melatonin (Melatonin 3 Mg Tablet) 3 mg PO BEDTIME PRN PRN Reason: Insomnia Olanzapine (Olanzapine 10 Mg Tablet) 20 mg PO BEDTIME [facility] Last Admin: 05/19/22 21:03 Dose: 20 mg Documented By: KORY Ondansetron HCl (Ondansetron Hcl 4 Mg/2 Ml Vial) 4 mg IVPUSH Q8H PRN PRN Reason: Nausea and Vomiting Pravastatin Sodium (Pravastatin Sodium 20 Mg Tablet) 20 mg PO BEDTIME [facility] Last Admin: 05/19/22 21:03 Dose: 20 mg Documented By: KORY Sodium Chloride (0.9 % Sodium Chloride Flush 3 Ml Syringe) 3 ml IVFLUSH QSHIFT [facility] Last Admin: 05/20/22 09:27 Dose: 3 ml Documented By: NAGA Venlafaxine HCl (Venlafaxine Hcl Er 150 Mg Cap.Er.24h) 150 mg PO DAILY [facility] Last Admin: 05/20/22 09:29 Dose: 150 mg Documented By: NAGA Venlafaxine HCl (Venlafaxine Hcl Er 75 Mg Cap.Er.24h) 75 mg PO DAILY [facility] Last Admin: 05/20/22 09:28 Dose: 75 mg Documented By: NAGA Labs CBC & Chem 7: 05/18/22 11:18 05/18/22 11:18 Labs: Laboratory Results - last 24 hr 05/19/22 05/19/22 05/20/22 17:26 19:53 07:45 POC Glucose 266 H 233 H 103 05/20/22 11:12 POC Glucose 220 H Microbiology Microbiology Results: Microbiology 05/18/22 11:48 Blood Culture - Preliminary Blood - Venous No growth after 48 hours. 05/18/22 11:18 Blood Culture - Preliminary Blood - Venous No growth after 48 hours. Assessment and Plan (1) Acute respiratory failure with hypoxia: Status: Acute (2) COVID-19: Status: Acute (3) Weakness: Status: Acute Plan 66-year-old gentleman with past medical history significant for diabetes mellitus type 2, coronary artery disease, COPD, CVA with left-sided weakness, depression, hypertension, hyperlipidemia presented to [facility] with generalized weakness and diagnosed to have COVID-19 infection with hypoxia finger oximetry dropped to 87% with minimal exertion. ? Acute hypoxic respiratory failure due to COVID-19 infection, no acute COPD exacerbation,? Chest x-ray showed no acute abnormality, Patient has no hypoxia at rest but noted to have hypoxia with activity id recommend no remdesivir or steroids since noted to have no hypoxia at rest, but since patient is hypoxic with activity Will treat with steroids day 3/ 10 days ? generalized weakness likely due to COVID infection noted? to have normal CBC and renal function, follow clinical course, PT eval ?diabetes mellitus type 2 cont home medications glipizide 5 mg b.i.d. on diabetic diet and insulin sliding scale, blood sugars elevated likely due to steroids ?hyperlipidemia continue statin ?coronary artery disease no symptoms of chest pain continue atenolol, statins and aspirin ?DVT prophylaxis with Lovenox ?code status full code ?patient will need continued inpatient stay at hospital due to acute hypoxic respiratory failure? 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 Quality Stroke Does the patient have a stroke diagnosis?: No VTE Prior VTE?: No VTE Risk Level:: Medical - moderate - high VTE Device Contraindication: Treatment Not Indicated VTE Drug Contraindication: N/A - Med Ordered
[2022-05-20] MEDS: dexAMETHasone sod phosphate 4 MG/ML VIAL 6 MG IVPUSH (15:08)
[2022-05-20] MEDS: Enoxaparin Sodium 40 MG/0.4 ML SYRINGE SUBCUT (15:09)
[2022-05-20 15:15] VITALS: BP 116/69; PULSE 59; RESP 18; TEMP 37; O2SAT 98
[2022-05-20 15:52] LABS: Glucose, Whole Blood 217 mg/dL (60-115)
[2022-05-20 19:26] VITALS: BP 143/85; PULSE 62; RESP 17; TEMP 36.7; O2SAT 94
[2022-05-20 20:08] LABS: Glucose, Whole Blood 251 mg/dL (60-115)
[2022-05-20] MEDS: Pravastatin Sodium 20 MG TABLET PO (20:41)
[2022-05-20] MEDS: OLANZapine 10 MG TABLET 20 MG PO (20:42)
[2022-05-20 23:32] VITALS: BP 143/91; PULSE 54; RESP 20; TEMP 36.4; O2SAT 96
[2022-05-21 03:51] VITALS: BP 149/81; PULSE 57; RESP 20; TEMP 36.3; O2SAT 94
[2022-05-21 07:36] VITALS: BP 165/85; PULSE 67; RESP 18; TEMP 36.4; O2SAT 97
[2022-05-21 08:06] LABS: Glucose, Whole Blood 151 mg/dL (60-115)
[2022-05-21] MEDS: Insulin Lispro 100 UNIT/ML 3 ML VIAL SUBCUT ×2 (08:35→11:57)
[2022-05-21] MEDS: 0.9 % Sodium Chloride Flush 3 ML SYRINGE IVFLUSH (08:36)
[2022-05-21] MEDS: Venlafaxine HCl ER 75 MG CAP.ER.24H PO (08:36)
[2022-05-21] MEDS: hydrALAZINE HCl 25 MG TABLET PO (08:37)
[2022-05-21] MEDS: atenoloL 50 MG TABLET PO (08:37)
[2022-05-21] MEDS: Venlafaxine HCl ER 150 MG CAP.ER.24H PO (08:38)
[2022-05-21] MEDS: dexAMETHasone sod phosphate 4 MG/ML VIAL 6 MG IVPUSH (08:38)
[2022-05-21] MEDS: glipiZIDE 5 MG TABLET PO (08:38)
[2022-05-21] MEDS: Aspirin Enteric Coated 81 MG TABLET.DR PO (08:39)
[2022-05-21 09:37] LABS: Hematocrit 43.8 % (42.0-52.0); Hemoglobin 14.5 g/dl (14.0-18.0); Mean Corpuscular HGB Conc 33.1 g/dl (31.0-36.0); Mean Corpuscular Volume 87.6 fL (80.0-98.0); Platelet Count 223 X10*3/uL (160-400); Red Cell Distribution Width 14.2 % (11.0-16.0); White Blood Count 12.6 X10*3/uL (4.8-10.8)
[2022-05-21 09:51] LABS: Anion Gap 16 (12-20); Blood Urea Nitrogen 25 mg/dL (9-16); Calcium 8.8 mg/dL (8.4-10.2); Carbon Dioxide 28 mmol/L (22-29); Chloride 100 mmol/L (96-108); Creatinine Clr Calc Pharmacy 67.6; Estimated Glomerular Filt Rate > 60; Glucose Random 216 mg/dL (60-115); Potassium 3.8 mmol/L (3.3-5.1); Sodium 140 mmol/L (135-145)
[2022-05-21 11:30] VITALS: BP 144/79; PULSE 100; RESP 20; TEMP 36.4; O2SAT 96
[2022-05-21 11:45] LABS: Glucose, Whole Blood 248 mg/dL (60-115)
--- NOTE | 2022-05-21 12:14 | HO.PM.IMPN ---
Subjective Subjective Date of Service: 05/21/22 Interval History: weakness improving dyspnea improving no cough no fever Review of Systems Review of Systems: Yes all other systems are reviewed and are negative Physical Exam Vital Signs: Vital Signs: Last Vital Signs Temp 97.5 F 05/21/22 11:30 Pulse 100 05/21/22 11:30 Resp 20 05/21/22 11:30 BP 144/79 H 05/21/22 11:30 Pulse Ox 96 05/21/22 11:30 O2 Del Method 05/21/22 11:30 BMI result Body Mass Index 23.0 Gen: in no acute distress HEENT: sclera anicteric, moist mucus membranes Neck: supple Lungs: clear to auscultation bilaterally Heart: regular rate and rhythm, no murmurs Abd: soft, non-tender, non-distended Ext: no edema Skin: warm/well-perfused Neuro: alert and oriented x3, L-sided weakness Psych: appropriate affect Objective Data Active Medications Acetaminophen (Acetaminophen 325 Mg Tablet) 650 mg PO Q6H PRN PRN Reason: Pain, Mild (Pain Scale 1-3) Aspirin (Aspirin Enteric Coated 81 Mg Tablet.) 81 mg PO DAILY [facility] Last Admin: 05/21/22 08:39 Dose: 81 mg Documented By: JOHN Atenolol (Atenolol 50 Mg Tablet) 50 mg PO DAILY [facility]; Protocol Last Admin: 05/21/22 08:37 Dose: 50 mg Documented By: JOHN Benzonatate (Benzonatate 100 Mg Capsule) 100 mg PO TID PRN PRN Reason: Cough Dexamethasone Sodium Phosphate (Dexamethasone Sod Phosphate 4 Mg/Ml Vial) 6 mg IVPUSH DAILY [facility] Last Admin: 05/21/22 08:38 Dose: 6 mg Documented By: JOHN Dextrose (Dextrose 50 % 25 Gm/50 Ml Syringe) 25 gm IVPUSH Q15M PRN; Protocol PRN Reason: per Hypoglycemia Standing Ord. Enoxaparin Sodium (Enoxaparin Sodium 40 Mg/0.4 Ml Syringe) 40 mg SUBCUT Q24H [facility] Last Admin: 05/20/22 15:09 Dose: 40 mg Documented By: NAGA Glipizide (Glipizide 5 Mg Tablet) 5 mg PO BID [facility] Last Admin: 05/21/22 08:38 Dose: 5 mg Documented By: JOHN Glucose (Glucose Gel 15 Gm Gel..Gram.) 15 gm PO Q15M PRN; Protocol PRN Reason: per Hypoglycemia Standing Ord. Hydralazine HCl (Hydralazine Hcl 25 Mg Tablet) 25 mg PO BID [facility]; Protocol Last Admin: 05/21/22 08:37 Dose: 25 mg Documented By: JOHN Insulin Human Lispro (Insulin Lispro 100 Unit/Ml 3 Ml Vial) 0 unit SUBCUT QIDACHS [facility]; Protocol Last Admin: 05/21/22 11:57 Dose: 4 unit Documented By: JOHN Lorazepam (Lorazepam 0.5 Mg Tablet) 0.5 mg PO BID PRN PRN Reason: anxiety Melatonin (Melatonin 3 Mg Tablet) 3 mg PO BEDTIME PRN PRN Reason: Insomnia Olanzapine (Olanzapine 10 Mg Tablet) 20 mg PO BEDTIME [facility] Last Admin: 05/20/22 20:42 Dose: 20 mg Documented By: DINORA Ondansetron HCl (Ondansetron Hcl 4 Mg/2 Ml Vial) 4 mg IVPUSH Q8H PRN PRN Reason: Nausea and Vomiting Pravastatin Sodium (Pravastatin Sodium 20 Mg Tablet) 20 mg PO BEDTIME [facility] Last Admin: 05/20/22 20:41 Dose: 20 mg Documented By: DINORA Sodium Chloride (0.9 % Sodium Chloride Flush 3 Ml Syringe) 3 ml IVFLUSH QSHIFT [facility] Last Admin: 05/21/22 08:36 Dose: 3 ml Documented By: JOHN Venlafaxine HCl (Venlafaxine Hcl Er 150 Mg Cap.Er.24h) 150 mg PO DAILY [facility] Last Admin: 05/21/22 08:38 Dose: 150 mg Documented By: JOHN Venlafaxine HCl (Venlafaxine Hcl Er 75 Mg Cap.Er.24h) 75 mg PO DAILY [facility] Last Admin: 05/21/22 08:36 Dose: 75 mg Documented By: JOHN Labs CBC & Chem 7: 05/21/22 09:20 05/21/22 09:20 Labs: Laboratory Results - last 24 hr 05/20/22 05/20/22 05/21/22 15:48 20:02 07:43 MCV MCH MCHC RDW Plt Count MPV Absolute Nucleated RBC Nucleated RBC % (auto) Anion Gap Estim Creat Clear Calc Estimated GFR POC Glucose 217 H 251 H 151 H Random Glucose Calcium C-Reactive Protein 05/21/22 05/21/22 05/21/22 09:20 09:20 11:32 MCV 87.6 MCH 29.0 MCHC 33.1 RDW 14.2 Plt Count 223 D MPV 9.0 L Absolute Nucleated RBC 0.000 Nucleated RBC % (auto) 0.0 Anion Gap 16 Estim Creat Clear Calc 67.6 Estimated GFR > 60 POC Glucose 248 H Random Glucose 216 H D Calcium 8.8 C-Reactive Protein 0.70 H Microbiology Microbiology Results: Microbiology 05/18/22 11:48 Blood Culture - Preliminary Blood - Venous No growth after 48 hours. 05/18/22 11:18 Blood Culture - Preliminary Blood - Venous No growth after 48 hours. Assessment and Plan (1) Acute respiratory failure with hypoxia: Status: Acute (2) COVID-19: Status: Acute (3) Weakness: Status: Acute Plan hospital d#4 66yo M with DM2, CAD, COPD, CVA with L-sided weakness, depression, HTN, HLD presented with weakness, admitted with Covid-19 with hypoxia [SaO2 87% with minimal exertion] # acute hypoxic resp failure due to Covid-19 infection - weaned off supplemental O2 - dexamethasone d#12/03 # CAD - continue ASA, statin, atenolol # HLD - continue statin # DM2 - hold GPZ, give correction-dose lispro # mood disorder - continue olanzapine, venlafaxine, lorazepam # VTE ppx: LMWH In my clinical judgment, the patient requires continued hospitalization for the following reasons: STR placement Quality Stroke Does the patient have a stroke diagnosis?: No VTE Prior VTE?: No VTE Risk Level:: Medical - moderate - high VTE Device Contraindication: Treatment Not Indicated VTE Drug Contraindication: N/A - Med Ordered
--- NOTE | 2022-05-21 12:52 | MHC.CM.PN ---
Patient has been medically cleared for [facility]SNF today. Patient will dc to [facility] today at 3PM via [facility]. IMM addressed with /HCP/Savaan at Room Extension [id number].
--- NOTE | 2022-05-21 13:25 | PM.DS ---
DS: Providers Provider Date of Service: 05/21/22 Date of admission: 05/18/22 15:23 Date of discharge: 05/21/22 Primary care physician: Kayy Pabon CNP Consults: 05/19/22 08:08 Consult to Infectious Diseases Routine Consulting Provider: Di Jj Reason for consultation: covid Has provider been notified: No DS: Diagnosis Discharge Diagnosis (1) Acute respiratory failure with hypoxia: Status: Acute (2) COVID-19: Status: Acute (3) Weakness: Status: Acute DS: Summary Hospital Course Hospital Course: from admission H+P by hospitalist Serge Davis, 05/18/22: 66-year-old gentleman with past medical history significant for COPD not on home oxygen, history of CVA, diabetes mellitus type 2, history of hypertension history of COVID infection and 2020 presented to [facility] with symptoms of generalized weakness that started 3 days ago associated with mild cough, he denies associated shortness of breath, no chest pain, no palpitation denies headache, no lightheadedness, denies nausea vomiting diarrhea patient also diagnosed to have COVID infection This 66yo M with DM2, CAD, COPD, CVA with L-sided weakness, depression, HTN, and HLD presented with weakness and was admitted with Covid-19 with hypoxia [SaO2 87% with minimal exertion]. He was treated with supplemental oxygen, from which he was rapidly weaned. He was also given dexamethasone. Symptoms improved and he was discharged to [facility] for short-term rehabilitation. He will complete 6 more days of dexamethasone. Time Spent with Patient Time attestation: Total time spent providing and/or coordinating discharge services: Discharge coordination time: Greater than 30 minutes Quality: Safe Use of Opioids Does Pt have an Active Cancer Diagnosis on the Problem List?: No Quality: Stroke Does the patient have a stroke diagnosis?: No Physical Exam Vital Signs: Vital Signs: Last Vital Signs Temp 97.5 F 05/21/22 11:30 Pulse 100 05/21/22 11:30 Resp 20 05/21/22 11:30 BP 144/79 H 05/21/22 11:30 Pulse Ox 96 05/21/22 11:30 O2 Del Method 05/21/22 11:30 BMI result Body Mass Index 23.0 Gen: in no acute distress HEENT: sclera anicteric, moist mucus membranes Neck: supple Lungs: clear to auscultation bilaterally Heart: regular rate and rhythm, no murmurs Abd: soft, non-tender, non-distended Ext: no edema Skin: warm/well-perfused Neuro: alert and oriented x3, chronic L weakness Psych: appropriate affect DS: Data Data Completed and Pending Completed studies during hospitalization [Text1]: Procedures Excision of Stomach, Pylorus, Via Natural or Artificial Opening Endoscopic, Diagnostic (07/05/20) Transfusion of Nonautologous Red Blood Cells into Peripheral Vein, Percutaneous Approach (07/05/20) Labs on day of discharge: Laboratory Results WBC 12.6 X10*3/uL (4.8-10.8) H 05/21/22 09:20 RBC 5.00 X10*6/uL (4.60-5.80) 05/21/22 09:20 Hgb 14.5 g/dl (14.0-18.0) 05/21/22 09:20 Hct 43.8 % (42.0-52.0) 05/21/22 09:20 MCV 87.6 fL (80.0-98.0) 05/21/22 09:20 MCH 29.0 pg (27.0-33.0) 05/21/22 09:20 MCHC 33.1 g/dl (31.0-36.0) 05/21/22 09:20 RDW 14.2 % (11.0-16.0) 05/21/22 09:20 Plt Count 223 X10*3/uL (160-400) D 05/21/22 09:20 MPV 9.0 fL (9.4-12.4) L 05/21/22 09:20 Immature Gran % (Auto) 1.1 % (0.0-0.4) H 05/18/22 11:18 Neut % (Auto) 69.8 % (45-73) 05/18/22 11:18 Lymph % (Auto) 21.3 % (20-40) 05/18/22 11:18 [place] % (Auto) 5.7 % (2-11) 05/18/22 11:18 Eos % (Auto) 1.4 % (0-4) 05/18/22 11:18 Baso % (Auto) 0.7 % (0-2) 05/18/22 11:18 Lymph # (Auto) 1.6 X10*3/uL (1.2-4.9) 05/18/22 11:18 [place] # (Auto) 0.4 X10*3/uL (0.1-1.2) 05/18/22 11:18 Eos # (Auto) 0.1 X10*3/uL (0.0-0.4) 05/18/22 11:18 Baso # (Auto) 0.1 X10*3/uL (0.0-0.2) 05/18/22 11:18 Abs Immat Gran (auto) 0.08 X10*3/uL (0.00-0.03) H 05/18/22 11:18 Absolute Neuts (auto) 5.1 x10*3/uL (2.0-8.3) 05/18/22 11:18 Absolute Nucleated RBC 0.000 X10*3/uL (0.0-0.012) 05/21/22 09:20 Nucleated RBC % (auto) 0.0 /100WBC (0.0-0.2) 05/21/22 09:20 Smear Tech's Comments VERIFIED 05/18/22 11:18 PT 11.8 SEC (10.0-13.1) 05/18/22 11:18 INR 1.0 (0.9-1.1) 05/18/22 11:18 D-Dimer High Sensitivty 478 NG/ML 05/18/22 11:18 Sodium 140 mmol/L (135-145) 05/21/22 09:20 Potassium 3.8 mmol/L (3.3-5.1) 05/21/22 09:20 Chloride 100 mmol/L (96-108) 05/21/22 09:20 Carbon Dioxide 28 mmol/L (22-29) 05/21/22 09:20 Anion Gap 16 (12-20) 05/21/22 09:20 BUN 25 mg/dL (9-16) H 05/21/22 09:20 Creatinine 1.14 mg/dL (0.5-1.4) 05/21/22 09:20 Estim Creat Clear Calc 67.6 05/21/22 09:20 Estimated GFR > 60 05/21/22 09:20 POC Glucose 248 mg/dL (60-115) H 05/21/22 11:32 Random Glucose 216 mg/dL (60-115) H D 05/21/22 09:20 Lactic Acid 0.9 mmol/L (0.5-2.0) 05/18/22 11:18 Calcium 8.8 mg/dL (8.4-10.2) 05/21/22 09:20 Total Bilirubin 0.6 mg/dL (0.0-1.0) 05/18/22 11:18 AST 12 U/L (5-37) 05/18/22 11:18 ALT 10 U/L (0-40) 05/18/22 11:18 Alkaline Phosphatase 113 U/L (39-117) D 05/18/22 11:18 Troponin I High Sens 45.9 ng/L (<3.5-35.0) H 05/18/22 13:34 C-Reactive Protein 0.70 mg/dL (< or = 0.50) H 05/21/22 09:20 B-Natriuretic Peptide 275 pg/mL (<100) H 05/18/22 11:18 Total Protein 6.7 g/dL (6.5-8.0) D 05/18/22 11:18 Albumin 3.5 g/dL (3.5-5.0) D 05/18/22 11:18 Urine Color Yellow 05/18/22 23:04 Urine Appearance Clear 05/18/22 23:04 Urine pH 5.5 (5.0-9.0) 05/18/22 23:04 Ur Specific [place] 1.025 (1.005-1.025) 05/18/22 23:04 Urine Protein 300 (3+) mg/dL (Neg-Trace) H 05/18/22 23:04 Urine Glucose (UA) >=1000 mg/dL (Negative) H 05/18/22 23:04 Urine Ketones >=160 mg/dL (Negative) 05/18/22 23:04 Urine Blood Trace (Negative) H 05/18/22 23:04 Urine Nitrite Negative (Negative) 05/18/22 23:04 Ur Leukocyte Esterase Negative (Negative) 05/18/22 23:04 Urine RBC 0-2 /HPF (0-2) 05/18/22 23:04 Urine WBC 0-5 /HPF (0-5) 05/18/22 23:04 Ur Squamous Epith Cells 0-2 /HPF (0-2) 05/18/22 23:04 Urine Bacteria None Seen (None Seen) 05/18/22 23:04 Hyaline Casts 0-2 /LPF (0-2) 05/18/22 23:04 COVID-19 (REYNALDO) Positive (Negative) A 05/18/22 10:04 COVID-19 Clin Com See Note 05/18/22 10:04 Impressions Chest X-Ray 05/18/22 10:30 IMPRESSION: Unremarkable examination. Discharge Plan Discharge Patient Disposition: [facility] Discharge Diagnosis: Covid-19 infection Referrals: [facility] [Outside] - 1 Week Kayy Pabon [employer] [Nurse Practitioner] - 1 Week Physician,Unknown J [Primary Care Provider] - 1 Week Discharge Medications: New dexamethasone 6 mg tablet 6 mg PO DAILY Qty: 6 0RF Continued venlafaxine 75 mg capsule,extended release 24hr 75 cap PO DAILY venlafaxine 150 mg capsule,extended release 24hr 150 mg PO DAILY hydralazine 25 mg tablet 25 mg PO BID lovastatin 20 mg tablet 20 mg PO BEDTIME insulin lispro [Humalog U-100 Insulin] 100 unit/mL Solution See Protocol subcut QIDACHS Qty: 10 0RF Protocol: Insulin Correction Scale Less than or equal to 110 ---- Give (units): 0 111 to 150 Give (units): 0 151 to 200 Give (units): 2 201 to 250 Give (units): 4 251 to 300 Give (units): 8 301 to 350 Give (units): 10 Greater than 350 Give (units): 14 Call MD if Blood Glucose > : 350 atenolol 50 mg tablet 50 mg PO DAILY Qty: 0 0RF aspirin 81 mg tablet,delayed release (DR/EC) 1 tab PO DAILY lorazepam 0.5 mg tablet 1 tab PO BID PRN (Reason: anxiety) olanzapine 20 mg tablet 1 tab PO BEDTIME glipizide 5 mg tablet 1 tab PO BID Discharge Orders: Discharge Order (Routine); Ordered 05/21/22 Ordered By: Kassi Smallwood Diet: Diabetic diet Activity on Discharge: As tolerated Stand Alone Forms: Patient Portal Discharge page Care Plan Goals: recovery from Covid-19 infection Health Concerns: Covid-19 infection Plan of Treatment: short-term rehabilitation at [facility] isolation ends 05/23, continue wearing mask until 05/28 dexamethasone 6 mg daily for 6 days Please follow up with your primary care doctor within 1 week of discharge from SNF. Return to the hospital if you experience recurrent or worsening symptoms. Assessment: See Discharge Summary.
--- NOTE | 2022-05-21 16:35 | PC.NURSE ---
Pt A+Ox4, sometimes forgetful. No c/o pain this morning. 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 Discharge orders in for placement at [facility], discharge instructions given to pt and . Both state that all their questions have been answered. [facility]. EMS to transport pt, arrived at 1630. Report given.
== END 2022-05-21 16:40 | disposition skilled nursing facility (03) | DRG 177 ==
LOC: HO.ED 14:08 → HO.EDOVER 15:31 → HO.IMC 05-19 15:46
PROVIDERS: Admitting Provider Hospitalist; Emergency Provider Emergency Medicine; PCP Nurse Practitioner Family; Visit Provider Family Medicine
DX: U07.1 COVID-19 (principal); J96.01 Acute respiratory failure with hypoxia; I69.354 Hemiplegia and hemiparesis following cerebral infarction affecting left non-dominant side; E11.9 Type 2 diabetes mellitus without complications; J44.9 Chronic obstructive pulmonary disease, unspecified; E78.5 Hyperlipidemia, unspecified; I25.10 Atherosclerotic heart disease of native coronary artery without angina pectoris; I25.2 Old myocardial infarction; Z86.16 Personal history of COVID-19; Z79.4 Long term (current) use of insulin; Z79.82 Long term (current) use of aspirin; Z79.84 Long term (current) use of oral hypoglycemic drugs; Z79.899 Other long term (current) drug therapy
CPT/HCPCS: 36415; 71045; 80048; 80053; 81001; 82947; 83605; 83880; 84484; 85025; 85027; 85379; 85610; 86140; 87040; 87635; 93005; 94640; 96361; 96374; 97116; 97162; 97530; 99285; J1100; J1650; J2930

== ENCOUNTER 2022-06-29 09:01 | Inpatient (IN) | payer MEDICARE, OTHER, SELFPAY ==
--- NOTE | ~2022-06-29 | CT_ITS ---
EXAMINATION: CT CERVICAL SPINE WITHOUT CONTRAST CLINICAL INFORMATION: Neck pain status post fall. COMPARISON: None TECHNIQUE: Multiple axial images of the cervical spine were obtained without the administration of intravenous contrast. Coronal and sagittal reformatted images were obtained. This CT examination was performed using dose optimization techniques as appropriate, variously including the following: *Automated exposure control *Adjustment of mA and/or kV according to patient size (this includes techniques or standardized protocols for targeted exams where dose is matched to indication/reason for exam; i.e. extremities or head) *Use of iterative reconstruction technique DLP: 428.82 mGy-cm FINDINGS: There is straightening of the normal cervical lordosis with normal spinal alignment. The vertebral bodies are intact. Moderate degenerative disc disease is seen at C6-7. Mild to moderate multilevel marginal osteophyte formation is seen as well. The odontoid process is intact. Moderate articular degenerative changes are seen. The neural foramina are patent. The facet joints are unremarkable. The spinous processes are intact. The cervical soft tissues are unremarkable. Mild to moderate atherosclerosis is seen in the carotid bulbs bilaterally. There is no lymphadenopathy. The thyroid gland is unremarkable. The lung apices show mild subpleural biapical cystic changes. CT/CT cervical spine wo IV con IMPRESSION: 1. Straightening of the normal cervical lordosis may be secondary to positioning and/or muscle spasm. 2. Multilevel degenerative changes without acute abnormality.
--- NOTE | ~2022-06-29 | CT_ITS ---
EXAMINATION: CT CHEST WITHOUT CONTRAST CT ABDOMEN AND PELVIS WITHOUT CONTRAST CLINICAL INFORMATION: Fall COMPARISON: Chest radiograph 05/18/2022. CT from 10/06/2006 TECHNIQUE: Multidetector volumetric imaging was performed through the chest, abdomen and pelvis without contrast. Sagittal and coronal reformatted images were obtained on the technologist's workstation. Axial MIP volume rendering provided. This CT examination was performed using dose optimization techniques as appropriate, variously including the following: *Automated exposure control *Adjustment of mA and/or kV according to patient size (this includes techniques or standardized protocols for targeted exams where dose is matched to indication/reason for exam; i.e. extremities or head) *Use of iterative reconstruction technique DLP: 1006 mGy-cm. FINDINGS: CHEST: Lungs: The central airways are patent. Moderate paraseptal emphysema and mild centrilobular emphysema. No consolidation. Scattered calcified granulomata. Mediastinum: The heart is of normal size. There is no pericardial effusion. Central vascular structures are unremarkable. Prominent subcarinal lymph node measuring 1.2 cm in short axis. No additional lymphadenopathy.. Coronary Artery Calcification: Present. Chest Wall/Axilla: No lymphadenopathy. No chest wall mass. ABDOMEN/PELVIS: Liver, Gallbladder, Biliary Tree: The liver is normal in size, shape, and attenuation. No focal hepatic lesion or biliary ductal dilatation is present. Calcified granulomata are seen in the liver. The gallbladder is unremarkable with no evidence of radiopaque gallstones, gallbladder wall thickening, or pericholecystic inflammatory changes. Pancreas: Unremarkable. Spleen: Unremarkable. Adrenal Glands: Unremarkable. Kidneys and Ureters: The kidneys are normal in size, shape, and attenuation. No hydronephrosis, hydroureter or calculi seen. Symmetric perinephric stranding. Vascular calcifications are present. Bladder: Partially distended bladder with circumferential wall thickening. Gastrointestinal Tract: Decompressed stomach. Normal caliber small bowel. No obstruction. There is diffuse colonic diverticulosis. No diverticulitis. Prominent stool distends the rectum. There is rectal wall thickening with adjacent inflammation. The rectum is distended to 7.2 cm transverse. The appendix is unremarkable. Abdominal Wall: No hernia is demonstrated. Lymphovascular Structures: Lymph nodes: Normal. Vascular: Normal caliber aorta with moderate atherosclerotic vascular calcification. Pelvic Viscera: The prostate and seminal vesicles are unremarkable. OSSEOUS STRUCTURES: There is a compression fracture of the anterior to mid aspect of the L3 vertebral body. There is central loss of height of up to 45%. There is no extension to the posterior elements. Remaining vertebral body heights are maintained. Small endplate osteophytes throughout. Facet arthropathy at the lumbar spine. No acute rib fracture. Intact pelvis with mild degenerative changes of the hips. CT/CT abdomen pelvis wo IV con IMPRESSION: 1. Compression fracture of the anterior to mid aspect of the L3 vertebral body. No extension to the posterior elements. Alignment maintained of the spine. 2. No acute traumatic finding of the chest. Moderate emphysema. 3. Prominent stool distends the rectum with rectal wall thickening and adjacent inflammation suggestive of stercoral colitis.
--- NOTE | ~2022-06-29 | CT_ITS ---
EXAMINATION: CT HEAD WITHOUT CONTRAST CLINICAL INFORMATION: Status post fall, rule out intracranial abnormality. COMPARISON: Head CT scan dated 06/30/2020. TECHNIQUE: Contiguous axial imaging was performed from the skull base to vertex without intravenous administration of contrast. Coronal and sagittal reformatted images were obtained. This CT examination was performed using dose optimization techniques as appropriate, variously including the following: *Automated exposure control *Adjustment of mA and/or kV according to patient size (this includes techniques or standardized protocols for targeted exams where dose is matched to indication/reason for exam; i.e. extremities or head) *Use of iterative reconstruction technique DLP: 887.50 mGy-cm FINDINGS: There is mild to moderate widening of the cortical sulci and associated ventriculomegaly. Moderate to severe periventricular microvascular changes are seen with encephalomalacia extending superiorly into the parietal lobes, right greater than left with similar appearance. The lateral ventricles are symmetrical. The third and fourth ventricles are in their normal midline position. Prominent posterior CSF space in the posterior fossa without significant change. The basilar and prepontine cisterns are unremarkable. There is no acute intra or extracerebral abnormality. There is no mass effect or midline shift. Sections through the bony calvarium are unremarkable. The orbits are intact. The paranasal sinuses are clear. The mastoid air cells are clear. CT/CT head/brain wo IV con IMPRESSION: No acute intracranial pathology. Similar appearance to the 2019 study.
[2022-06-29 09:12] VITALS: BP 131/84; BP 136/76; PULSE 85; RESP 16; TEMP 36.8; O2SAT 95; O2SAT 96; BMI 23.3
--- NOTE | 2022-06-29 09:34 | PC.NURSE ---
pt from home where his son visits him nightly to give him his noight time meds. pt unsure what meds he is on. pt reports he lives with his who is currently hospitalized in [facility]. pt reports he walks with a walker and normally cares for himself, upon arrival to [facility] pt was found to be severely incontinent of both stool and urine. pt reports feeling weak. he has multiple wounds all over his body from unknown cause.
--- NOTE | 2022-06-29 09:39 | ECG_ITS ---
Test Reason : fall 5 days ago Blood Pressure : / mmHG Vent. Rate : 079 BPM Atrial Rate : 079 BPM P-R Int : 134 ms QRS Dur : 142 ms QT Int : 494 ms P-R-T Axes : 064 078 -53 degrees QTc Int : 566 ms Normal sinus rhythm Right bundle branch block T wave abnormality, consider inferior ischemia Abnormal ECG When compared with ECG of 18-MAY-2022 10:32, No significant change was found Referred By: Felix Gorman Electronically Signed By:DIANNE RDZ MD
--- NOTE | 2022-06-29 09:50 | ED_ITS ---
HPI - General Adult General Chief complaint: Altered Mental Status Stated complaint: BACK PAIN X'S 5 DAYS,NO INJURY Time Seen by Provider: 06/29/22 09:13 Source: patient Mode of arrival: ambulatory Limitations: no limitations History of Present Illness HPI narrative: 66-YEAR-OLD MALE HISTORY OF FAILURE TO THRIVE HISTORY OF COVID IN THE PAST HISTORY OF RESPIRATORY FAILURE IN THE PAST BROUGHT TO THE ED FOR COMPLAINTS OF BACK PAIN. PATIENT WAS BROUGHT TO THE ED BY EMS. PER EMS THEY FOUND PATIENT IN HIS HOME COVERED IN FECES FROM HIS BACK DOWN TO HIS FEET. SON INFORMED THAT HE FOUND PATIENT ON THE FLOOR 5 DAYS AGO AND THEN PUT HIM IN THE BED. PATIENT STATES HIS SON VISITS HIM EVERY DAY TO GIVEN FOOD. EMS STATES PATIENT WHO IS ADMITTED AT [facility] CALL THE SON TO CALL AMBULANCE DUE TO PATIENT SOUNDED WEIRD ON THE PHONE WHETHER WERE TALKING. PATIENT 1 COMPLAINT IS BACK PAIN. DENIES PASSING OUT OR HITTING HEAD. PATIENT STATES USUALLY AMBULATE WITH WALKER WHILE HE WAS TRYING TO GET BACK INTO THE BED 5 DAYS AGO HE LOST HIS FOOTING AND FELL ONTO THE FLOOR ONTO HIS BACK. PATIENT STATES SHE DOES FEEL FATIGUE. Related Data Home Medications Medication Instructions Recorded Confirmed hydralazine 25 mg tablet 25 mg PO BID 06/06/20 05/18/22 lovastatin 20 mg tablet 20 mg PO BEDTIME 06/06/20 05/18/22 venlafaxine 150 mg 150 mg PO DAILY 06/06/20 05/18/22 capsule,extended release 24 hr venlafaxine 75 mg capsule,extended 75 cap PO DAILY 06/06/20 05/18/22 release 24 hr aspirin 81 mg tablet,delayed 1 tab PO DAILY 05/18/22 05/18/22 release glipizide 5 mg tablet 1 tab PO BID 05/18/22 05/18/22 lorazepam 0.5 mg tablet 1 tab PO BID PRN anxiety 05/18/22 05/18/22 olanzapine 20 mg tablet 1 tab PO BEDTIME 05/18/22 05/18/22 Previous Rx's Medication Instructions Recorded insulin lispro 100 unit/mL See Protocol subcut QIDACHS #10 mL 06/07/20 subcutaneous solution (Humalog U-100 Insulin) atenolol 50 mg tablet 50 mg PO DAILY #0 tabs 07/22/20 dexamethasone 6 mg tablet 6 mg PO DAILY #6 tabs 05/21/22 Allergies Allergy/AdvReac Type Severity Reaction Status Date / Time No Known Allergies Allergy Unknown NKA Verified 07/05/20 17:17 Review of Systems Review of Systems: BACK PAIN Yes all other systems are reviewed and are ne [facility] Past Medical History Medical History Abnormal EKG Blood bacterial culture positive COPD (chronic obstructive pulmonary disease) COVID-19 COVID-19 CVA (cerebral vascular accident) Diabetes Diabetes mellitus type 1 Dizziness Hypertension NSTEMI (non-ST elevated myocardial infarction) Surgical History History of percutaneous coronary intervention Social History Social History Household Members: Spouse Housing: Apartment Do you presently have visiting nurse or other home services: No Alcohol intake: never Patient Tobacco Use Status: Never used Tobacco e-Cigarette/Vaping Use: Never Used Second Hand Smoke Exposure: No Advance Directives: Yes Advance Directives on File: Yes Advance Directives Date on File: 05/31/20 service: No Current occupational status: retired Physical Exam ED Vital Signs: Vital Signs - 24 hr 06/29/22 09:12 06/29/22 13:36 06/29/22 13:40 Temperature 98.3 F Pulse Rate 85 83 Respiratory Rate 16 18 Blood Pressure 136/76 144/73 H Pulse Oximetry 95 Oxygen Delivery Method Room Air 06/29/22 15:20 Temperature Pulse Rate 80 Respiratory Rate 25 H Blood Pressure 121/68 Pulse Oximetry 94 Oxygen Delivery Method Room Air BMI result Body Mass Index 23.3 Const General: cooperative, healthy appearing, comfortable, no acute distress, well developed, alert, awake and Physically active Orientation/consciousness: patient oriented x3 HENMT Head: Yes normal to inspection, Yes No palpable skull fracture present, Yes normocephalic and Yes atraumatic Eyes General: appearance normal, both eyes and all related structures Neck Neck: Yes normal visual inspection, Yes full ROM, Yes no lymphadenopathy, Yes no meningeal signs, Yes trachea midline, Yes supple, No anterior neck swelling and No tender Chest Chest palpation & inspection: normal inspection of the chest and normal palpation of entire chest wall Resp Effort & Inspection: normal respiratory effort and able to speak in complete sentences Cardio Jugular venous distension: no JVD Heart sounds: S1 normal heart sound present and S2 normal heart sound present GI Inspection: Yes normal to inspection and No abdominal wall ecchymosis Palpation (GI): Soft to palpation, not firm, nontender, no guarding and not rigid General: No CVA tenderness and Yes no CVA tenderness Back/Spine/Pelvis Back: no CVA tenderness, No CVA tenderness and back tenderness (LUMBAR SPINE TENDERNESS.) Skin Other: FECES FROM LOWER BACK/WAIST DOWN TO FEET. clEANED BY NURSE. aBRASION LIKE WOUNDS Neuro Other: PATIENT ALERT ORIENTED X3. NEGATIVE SLURRED SPEECH. NEGATIVE FACIAL DROOP. NEGATIVE PRONATOR DRIFT. NEGATIVE NYSTAGMUS. NEGATIVE LOSS OF VISION. EXTREMITIES EQUAL STRENGTH. PATIENT NOT ABLE TO WALK WITHOUT A WALKER. FINGER TO NOSE AND RAPID HAND MOVEMENT INTACT General: patient oriented x3 and no meningeal signs Extrem General: Yes normal to inspection and Yes full ROM Psych Appearance: grossly normal, well kempt and not disheveled Course Course Course Narrative: PATIENT IS ALERT ORIENTED X3 AND NEGATIVE FOR NEURO DEFICITS. DUE TO PATIENT FALLING WILL DO LABS INITIAL DOES NO SIGNS OF ELECTROLYTE DEFICIENCY INCLUDING CPK AND MAGNESIUM. PATIENT DENIES ANY CARDIAC SYMPTOMS TO but will do eKG and TROPONINS due to fall. PATIENT PRESENTLY IS NOT ALTERED BUT WILL DO AMMONIA LEVEL. LOOK FOR SOURCE OF INFECTION SO AND UA AND CHEST. WILL BE SCANNED FOR ABDOMINAL HEAD CERVICAL SPINE AND CHEST DUE TO FALL 5 DAYS AGO. FLUIDS ORDERED Reevaluation(s) Reevaluation #1: Patient white blood cell count [id number], images came back positive for spine fracture and rectal colitis. UA positive for UTI. Lactic acid negative. EKG negative STEMI. 1st troponin negative. Will do repeat. Patient admitted to hospitalist Dr. Mcadams Time: 15:29 Medical Decision Making [facility] Narrative Medical decision making narrative: UTI. LUMBAR SPINE FRACTURE Lab Data Result diagrams: 06/29/22 10:55 06/29/22 12:33 Labs: Lab Results 06/29/22 06/29/22 06/29/22 Range/Units 10:55 10:55 10:55 WBC 23.3 H (4.8-10.8) X10*3/uL RBC 5.24 (4.60-5.80) X10*6/uL Hgb 15.2 (14.0-18.0) g/dl Hct 46.4 (42.0-52.0) % MCV 88.5 (80.0-98.0) fL MCH 29.0 (27.0-33.0) pg MCHC 32.8 (31.0-36.0) g/dl RDW 14.5 (11.0-16.0) % Plt Count 144 L D (160-400) X10*3/uL MPV 9.1 L (9.4-12.4) fL Immature Gran % (Auto) 0.7 H (0.0-0.4) % Neut % (Auto) 87.5 H (45-73) % Lymph % (Auto) 5.5 L (20-40) % [place] % (Auto) 5.5 (2-11) % Eos % (Auto) 0.4 (0-4) % Baso % (Auto) 0.4 (0-2) % Lymph # (Auto) 1.3 (1.2-4.9) X10*3/uL [place] # (Auto) 1.3 H (0.1-1.2) X10*3/uL Eos # (Auto) 0.1 (0.0-0.4) X10*3/uL Baso # (Auto) 0.1 (0.0-0.2) X10*3/uL Abs Immat Gran (auto) 0.16 H (0.00-0.03) X10*3/uL Absolute Neuts (auto) 20.4 H (2.0-8.3) x10*3/uL Absolute Nucleated RBC 0.000 (0.0-0.012) X10*3/uL Nucleated RBC % (auto) 0.0 (0.0-0.2) /100WBC Smear Tech's Comments VERIFIED Sodium (135-145) mmol/L Potassium (3.3-5.1) mmol/L Chloride (96-108) mmol/L Carbon Dioxide (22-29) mmol/L Anion Gap (12-20) BUN (9-16) mg/dL Creatinine (0.5-1.4) mg/dL Estim Creat Clear Calc Estimated GFR Random Glucose (60-115) mg/dL Lactic Acid (0.5-2.0) mmol/L Calcium (8.4-10.2) mg/dL Magnesium (1.6-2.6) mg/dL Total Bilirubin (0.0-1.0) mg/dL AST (5-37) U/L ALT (0-40) U/L Alkaline Phosphatase (39-117) U/L Ammonia 21 (13-55) umol/L Total Creatine Kinase (38-174) U/L Troponin I High Sens 27.8 (<3.5-35.0) ng/L B-Natriuretic Peptide 243 H (<100) pg/mL Total Protein (6.5-8.0) g/dL Albumin (3.5-5.0) g/dL Urine Color Urine Appearance Urine pH (5.0-9.0) Ur Specific [place] (1.005-1.025) Urine Protein (Neg-Trace) mg/dL Urine Glucose (UA) (Negative) mg/dL Urine Ketones (Negative) mg/dL Urine Blood (Negative) Urine Nitrite (Negative) Ur Leukocyte Esterase (Negative) Urine RBC (0-2) /HPF Urine WBC (0-5) /HPF Ur Squamous Epith Cells (0-2) /HPF Urine Bacteria (None Seen) Hyaline Casts (0-2) /LPF Influenza Type A (PCR) (Negative) Influenza Type B (PCR) (Negative) RSV RNA Qual (PCR) (Negative) SARS-CoV-2 RNA (RT-PCR) (Negative) 06/29/22 06/29/22 06/29/22 Range/Units 11:51 11:54 12:08 WBC (4.8-10.8) X10*3/uL RBC (4.60-5.80) X10*6/uL Hgb (14.0-18.0) g/dl Hct (42.0-52.0) % MCV (80.0-98.0) fL MCH (27.0-33.0) pg MCHC (31.0-36.0) g/dl RDW (11.0-16.0) % Plt Count (160-400) X10*3/uL MPV (9.4-12.4) fL Immature Gran % (Auto) (0.0-0.4) % Neut % (Auto) (45-73) % Lymph % (Auto) (20-40) % [place] % (Auto) (2-11) % Eos % (Auto) (0-4) % Baso % (Auto) (0-2) % Lymph # (Auto) (1.2-4.9) X10*3/uL [place] # (Auto) (0.1-1.2) X10*3/uL Eos # (Auto) (0.0-0.4) X10*3/uL Baso # (Auto) (0.0-0.2) X10*3/uL Abs Immat Gran (auto) (0.00-0.03) X10*3/uL Absolute Neuts (auto) (2.0-8.3) x10*3/uL Absolute Nucleated RBC (0.0-0.012) X10*3/uL Nucleated RBC % (auto) (0.0-0.2) /100WBC Smear Tech's Comments Sodium (135-145) mmol/L Potassium (3.3-5.1) mmol/L Chloride (96-108) mmol/L Carbon Dioxide (22-29) mmol/L Anion Gap (12-20) BUN (9-16) mg/dL Creatinine (0.5-1.4) mg/dL Estim Creat Clear Calc Estimated GFR Random Glucose (60-115) mg/dL Lactic Acid 1.0 (0.5-2.0) mmol/L Calcium (8.4-10.2) mg/dL Magnesium (1.6-2.6) mg/dL Total Bilirubin (0.0-1.0) mg/dL AST (5-37) U/L ALT (0-40) U/L Alkaline Phosphatase (39-117) U/L Ammonia (13-55) umol/L Total Creatine Kinase (38-174) U/L Troponin I High Sens (<3.5-35.0) ng/L B-Natriuretic Peptide (<100) pg/mL Total Protein (6.5-8.0) g/dL Albumin (3.5-5.0) g/dL Urine Color Yellow Urine Appearance Clear Urine pH 5.0 (5.0-9.0) Ur Specific [place] 1.025 (1.005-1.025) Urine Protein >=1000 (4+) H (Neg-Trace) mg/dL Urine Glucose (UA) 500 H (Negative) mg/dL Urine Ketones 80 (Negative) mg/dL Urine Blood Trace H (Negative) Urine Nitrite Negative (Negative) Ur Leukocyte Esterase Small (1+) H (Negative) Urine RBC 0-2 (0-2) /HPF Urine WBC >50 H (0-5) /HPF Ur Squamous Epith Cells 0-2 (0-2) /HPF Urine Bacteria 2+ (None Seen) Hyaline Casts 3-5 (0-2) /LPF Influenza Type A (PCR) NEGATIVE (Negative) Influenza Type B (PCR) NEGATIVE (Negative) RSV RNA Qual (PCR) NEGATIVE (Negative) SARS-CoV-2 RNA (RT-PCR) NEGATIVE (Negative) 06/29/22 Range/Units 12:33 WBC (4.8-10.8) X10*3/uL RBC (4.60-5.80) X10*6/uL Hgb (14.0-18.0) g/dl Hct (42.0-52.0) % MCV (80.0-98.0) fL MCH (27.0-33.0) pg MCHC (31.0-36.0) g/dl RDW (11.0-16.0) % Plt Count (160-400) X10*3/uL MPV (9.4-12.4) fL Immature Gran % (Auto) (0.0-0.4) % Neut % (Auto) (45-73) % Lymph % (Auto) (20-40) % [place] % (Auto) (2-11) % Eos % (Auto) (0-4) % Baso % (Auto) (0-2) % Lymph # (Auto) (1.2-4.9) X10*3/uL [place] # (Auto) (0.1-1.2) X10*3/uL Eos # (Auto) (0.0-0.4) X10*3/uL Baso # (Auto) (0.0-0.2) X10*3/uL Abs Immat Gran (auto) (0.00-0.03) X10*3/uL Absolute Neuts (auto) (2.0-8.3) x10*3/uL Absolute Nucleated RBC (0.0-0.012) X10*3/uL Nucleated RBC % (auto) (0.0-0.2) /100WBC Smear Tech's Comments Sodium 137 (135-145) mmol/L Potassium 4.3 (3.3-5.1) mmol/L Chloride 103 (96-108) mmol/L Carbon Dioxide 17 L (22-29) mmol/L Anion Gap 21 H (12-20) BUN 24 H (9-16) mg/dL Creatinine 1.18 (0.5-1.4) mg/dL Estim Creat Clear Calc 56.0 Estimated GFR > 60 Random Glucose 222 H (60-115) mg/dL Lactic Acid (0.5-2.0) mmol/L Calcium 8.0 L D (8.4-10.2) mg/dL Magnesium 1.9 (1.6-2.6) mg/dL Total Bilirubin 0.9 (0.0-1.0) mg/dL AST 12 (5-37) U/L ALT 8 (0-40) U/L Alkaline Phosphatase 103 (39-117) U/L Ammonia (13-55) umol/L Total Creatine Kinase 252 H (38-174) U/L Troponin I High Sens (<3.5-35.0) ng/L B-Natriuretic Peptide (<100) pg/mL Total Protein 5.7 L (6.5-8.0) g/dL Albumin 3.1 L (3.5-5.0) g/dL Urine Color Urine Appearance Urine pH (5.0-9.0) Ur Specific [place] (1.005-1.025) Urine Protein (Neg-Trace) mg/dL Urine Glucose (UA) (Negative) mg/dL Urine Ketones (Negative) mg/dL Urine Blood (Negative) Urine Nitrite (Negative) Ur Leukocyte Esterase (Negative) Urine RBC (0-2) /HPF Urine WBC (0-5) /HPF Ur Squamous Epith Cells (0-2) /HPF Urine Bacteria (None Seen) Hyaline Casts (0-2) /LPF Influenza Type A (PCR) (Negative) Influenza Type B (PCR) (Negative) RSV RNA Qual (PCR) (Negative) SARS-CoV-2 RNA (RT-PCR) (Negative) ECG Data Interpretation: normal sinus rhythm. Ventricular rate 79. Pr interval 134. QRS 142. QTC 566. Neck exam Discharge Plan Discharge Clinical Impression: UTI (urinary tract infection), L3 vertebral fracture Patient Disposition: Admitted As Inpatient
--- OUTSIDE RECORDS SUMMARY | 2022-06-29 09:59 | XMS_ITS | Continuity of Care Document ---
:1955 Author Organization [facility] Address [address] [place] [address]- Care Team Providers Name Role Phone Cm ROSARIO, Kayy Kulkarni Primary Care Physician Encounter [facility] Date(s): 08/17/20 - 08/24/20 [facility] [address] [place], [place] [id number] Attending Physician: Not on Staff, Attending MD Allergies, Adverse Reactions, Alerts Substance Reaction Severity Status NKA Active Immunizations Given and Recorded Vaccine Date Status Refusal Reason influenza virus vaccine, inactivated1 06/26/19 Given influenza virus vaccine, inactivated 09/14/15 Given influenza virus vaccine, inactivated 07/20/14 Given influenza virus vaccine, inactivated2 07/17/13 Given influenza virus vaccine, inactivated 05/24/08 Given tetanus/diphtheria/pertussis, acel(Tdap) 09/14/15 Given Influenza Inactive (IM) (oldterm)3 09/25/10 Given Pneumococcal Poly (PPV23) (oldterm) 05/24/08 Given tetanus-diphtheria toxoids (Td) 12/22/04 Given 1Result Comment: [facility] [id number] Note: vis Admin Note: Pt reports received while in hospital. [facility] [place] aero chamber aero chamber, with albuterol, By Mouth, Every 6 hours, PRN sob /wheeze, # 1 applicator, Refills 0, Tot. Refills 0, Maintenance, 11/08/10 11:23:49 Start Date: 11/08/10 Status: Orderedatenolol 50 mg oral tablet 100 mg, 2, tablet, By Mouth, Daily, # 180 tablet, Refills 1, Tot. Refills 1, Maintenance, 12/11/19 10:36:00 EDT, Route to Pharmacy Electronically, [facility]/pharmacy #[id number], 170.18, cm, 06/26/19 10:19:00 EDT,Height Start Date: 12/11/19 Stop Date: 06/08/20 Status: OrderedColace sodium 100 mg oral capsule 100 mg, 1, capsule, By Mouth, 2 times a day, PRN, with plenty of water, # 60 capsule, Refills 1, Tot. Refills 1, Maintenance, for constipation, 10/28/18 11:12:39 EST, Route to Pharmacy Electronically, 9 [id number], [facility]/pharmacy... Start Date: 10/28/18 Status: OrderedFreestyle Lite Lancets See Instructions, # 120 each, Refills 11, Tot. Refills 11, Maintenance, E11.8 Test blood glucose 4 times a day., 07/01/20 11:44:00 EST, Supply, 170.18, cm, 06/26/19 10:19:00 EDT, Height Start Date: 07/01/20 Status: OrderedFreestyle Lite Monitor See Instructions, # 1 each, Maintenance, E11.8 Use as directed., 07/01/20 11:44:00 EST, Supply, 170.18, cm, 06/26/19 10:19:00 EDT, Height Start Date: 07/01/20 Status: OrderedFreestyle Lite Test Strips See Instructions, # 120 each, Refills 11, Tot. Refills 11, Maintenance, E11.8 Test blood glucose 4 times a day., 07/01/20 11:42:00 EST, Supply, 170.18, cm, 06/26/19 10:19:00 EDT, Height Start Date: 07/01/20 Status: OrderedglipiZIDE 5 mg oral tablet, extended release 1 tablet = 5 mg, By Mouth, Daily, # 90 tablet, 1 Refills, Maintenance, 08/17/20 8:59:00 EST, ER Tablet, [facility]/pharmacy #[id number], Partial fill upon patient request if the prescription is for a schedule II opioid drug., 170.18, cm, 06/26/19 10:19:00 EDT, Height Start Date: 08/17/20 Stop Date: 02/13/21 Status: OrderedhydrALAZINE 25 mg oral tablet 25 mg, 1, tablet, By Mouth, 2 times a day, # 180 tablet, Refills 1, Tot. Refills 1, Maintenance, 08/17/20 8:57:00 EST, [facility] 170.[facility], cm, 06/26/19 10:19:00 EDT, Height Start Date: 08/17/20 Stop Date: 02/13/21 Status: OrderedLORazepam 0.5 mg oral tablet See Instructions, TAKE 1 TABLET BY MOUTH TWICE A DAY NEEDED FOR ANXIETY, # 42 tablet, 0 Refills, Soft Stop, 08/17/20 9:01:00 EST, [facility] 170.[facility], cm, 06/26/19 10:19:00 EDT, Height Start Date: 08/17/20 Status: Orderedlovastatin 20 mg oral tablet 1 tablet = 20 mg, By Mouth, Daily, with evening meal, # 90 tablet, 1 Refills, Maintenance, 08/16/20 16:45:00 EST, [id number] 170.18, cm, 06/26/19 10:19:00 EDT, Height Start Date: 08/16/20 Stop Date: 02/12/21 Status: OrderedNovoLOG FlexPen 100 units/mL injectable solution See Instructions, Subcutaneous Infusion 3 times a day before meals per Sliding Scale. No more than 24 units in a 24 hour period., # 3 mL, 11 Refills, Maintenance, 08/22/20 18:42:00 EST, [facility]/pharmacy #1, 170.18, cm, 06/26/19 10:19:00 EDT, Height Start Date: 08/22/20 Status: Orderedolanzapine 20 mg oral tablet See Instructions, TAKE 1 TABLET BY MOUTH EVERY DAY, # 90 tablet, 1 Refills, Maintenance, [facility]ORE [id number], 170.18, cm, 06/26/19 10:19:00 EDT, Height Start Date: 05/05/20 Status: Orderedomeprazole 20 mg oral delayed release tablet 2 tablet = 40 mg, By Mouth, 2 times a day, Two tablets to equal 40 mg twice a day., # 120 tablet, 0 Refills, Maintenance, 08/17/20 9:28:00 EST, [facility] Tablet, Partial fill upon patient request if the prescription is for a schedule II opioid drug. Start Date: 08/17/20 Stop Date: 09/16/20 Status: OrderedPen [place], 30 G x 8 mm BD Ultra Fine II See Instructions, # 300 each, Refills 3, Tot. Refills 3, Maintenance, E11.8 Test blood glucose threetimes a day., 08/23/20 16:34:00 EST, Supply, 170.18, cm, 06/26/19 10:19:00 EDT, Height Start Date: 08/23/20 Stop Date: 08/18/21 Status: Orderedpolyethylene glycol 3350 oral powder for reconstitution See Instructions, # 255 Gm, TAKE 17 GRAMS DISSOLVED IN WATER OR JUICE EVERY DAY NEEDED, [facility]/pharmacy #207 Start Date: 06/26/19 Status: Orderedpolyethylene glycol 3350 oral powder for reconstitution = 17 Gm, By Mouth, Daily in AM, PRN Other, dissolve in water or juice., # 255 Gm, 1 Refills, Maintenance, 05/05/19 10:20:31 EDT, Powder, 17 Gm By Mouth Daily in AM,PRN:Other,Instr:dissolve in water or juice. Start Date: 05/05/19 Status: Orderedsenna - oral tablet 1 tablet, By Mouth, Daily at bedtime, Per med rec 03/19/16 with the pt's . KL, 0 Refills, Maintenance, 03/19/16 14:24:28 Start Date: 03/19/16 Status: Orderedvenlafaxine 150 mg oral capsule, extended release 1 capsule = 150 mg, By Mouth, Daily, # 90 capsule, 1 Refills, Soft Stop, 12/16/19 15:46:00 EDT, [facility], 170.18, cm, 06/26/19 10:19:00 EDT, Height Start Date: 12/16/19 Stop Date: 06/13/20 Status: Orderedvenlafaxine 75 mg oral capsule, extended release 1 capsule = 75 mg, By Mouth, Daily, # 90 capsule, 1 Refills, Soft Stop, 01/01/20 12:46:00 EDT, [id number], 170.18, cm, 06/26/19 10:19:00 EDT, Height Start Date: 01/01/20 Stop Date: 06/29/20 Status: Ordered Problem List Condition Effective Dates Status Health Status Informant CAD - Coronary artery Active disease(Confirmed) Acute CVA (cerebrovascular Active accident)(Confirmed) Chronic diastolic CHF (congestive Active heart failure)(Confirmed) Chronic kidney disease Active (CKD)(Confirmed) COPD - Chronic obstructive pulmonary Active disease(Confirmed) CAD (coronary artery Active disease)(Confirmed) CVA - Cerebrovascular 06/12/11 Active accident(Confirmed) Depression(Confirmed) Active Diabetes mellitus(Confirmed) 09/25/10 Active Diverticulosis(Confirmed) 09/25/10 Active Fatigue(Confirmed) Active Gastroesophageal reflux Active disease(Confirmed) Hypertension(Confirmed) Active Anxiety and depression(Confirmed) Active NIDDM - Non-insulin dependent diabetes Active mellitus(Confirmed) Pain in shoulder(Confirmed) 06/12/11 Active PAD (peripheral artery Active disease)(Confirmed) Seizure(Confirmed) 02/20/13 Active Spastic hemiplegia and hemiparesis Active affecting nondominant side(Confirmed) Tobacco abuse(Confirmed) Active Social History Social History Type Response Smoking Status Former smoker; Type: Cigaret brandon; Other: 1ppd; entered on: 01/08/17 Sex
--- OUTSIDE RECORDS SUMMARY | 2022-06-29 09:59 | XMS_ITS | Continuity of Care Document ---
:1955 Author Organization [facility] Address [address] [place] [address]- Care Team Providers Name Role Phone Cm ROSARIO, Kayy Kulkarni Primary Care Physician Encounter [facility] Date(s): 10/10/21 - 11/09/21 [facility] [address] [place] [phone]- Allergies, Adverse Reactions, Alerts No Known Allergies Immunizations Given and Recorded Vaccine Date Status Refusal Reason influenza virus vaccine, inactivated1 09/20/21 Given influenza virus vaccine, inactivated 06/08/20 Recorded influenza virus vaccine, inactivated2 06/26/19 Given influenza virus vaccine, inactivated 09/14/15 Given influenza virus vaccine, inactivated 07/20/14 Given influenza virus vaccine, inactivated3 07/17/13 Given influenza virus vaccine, inactivated 05/24/08 Given SARS-CoV-2 (COVID-19) mRNA BNT-162b2 vac 07/10/21 Recorde d SARS-CoV-2 (COVID-19) mRNA-1273 vaccine 11/22/20 Recorded SARS-CoV-2 (COVID-19) mRNA-1273 vaccine 10/25/20 Recorded pneumococcal 23-valent vaccine 02/15/16 Recorded tetanus/diphtheria/pertussis, acel(Tdap) 09/14/15 Given Influenza Inactive (IM) (oldterm)4 09/25/10 Given Pneumococcal Poly (PPV23) (oldterm) 05/24/08 Given tetanus-diphtheria toxoids (Td) 12/22/04 Given 1Result Comment: [facility] [phone] Comment: [facility] [id number] Note: vis Admin Note: Pt reports received while in hospital. [facility] [place]ations aero chamber aero chamber, with albuterol, By Mouth, Every 6 hours, PRN sob /wheeze, # 1 applicator, Refills 0, Tot. Refills 0, Maintenance, 11/08/10 11:23:49 Start Date: 11/08/10 Status: Orderedaspirin 81 mg oral delayed release tablet 81 mg, 1, tablet, By Mouth, Daily, # 90 tablet, Refills 1, Tot. Refills 1, Maintenance, 09/15/21 12:58:00 EST, Route to Pharmacy Electronically, [facility]/pharmacy #[id number], Partial fill upon patient request ifthe prescription is for a schedule II opioid drug. Start Date: 09/15/21 Stop Date: 03/14/22 Status: Orderedatenolol 50 mg oral tablet See Instructions, TAKE 1 TABLET BY MOUTH EVERY DAY, # 180 tablet, Refills 0, Tot. Refills 0, Maintenance, 09/20/21 16:13:00 EST, Instructions Replace Required Details, Do Not Route Start Date: 09/20/21 Status: OrderedColace sodium 100 mg oral capsule 100 mg, 1, capsule, By Mouth, 2 times a day, PRN, with plenty of water, # 60 capsule, Refills 1, Tot. Refills 1, Maintenance, for constipation, 10/28/18 11:12:39 EST, Route to Pharmacy Electronically, 9 [id number], [facility]/pharmacy... Start Date: 10/28/18 Status: OrderedFREESTYLE 28G LANCETS FREESTYLE 28G LANCETS, See Instructions, # 100 Unknown, 11 Refills, USE TO TEST 4 TIMES DAILY Start Date: 07/31/21 Status: OrderedFREESTYLE LITE TEST STRIP FREESTYLE LITE TEST STRIP, See Instructions, # 100 Unknown, 11 Refills, USE TO TEST 4 TIMES DAILY Start Date: 09/11/21 Status: OrderedglipiZIDE 5 mg oral tablet 1, tablet, By Mouth, 2 times a day, # 180 tablet, Refills 0, Route to Pharmacy Electronically, [id number] Start Date: 07/31/21 Status: OrderedglipiZIDE 5 mg oral tablet See Instructions, TAKE 1 TABLET BY MOUTH TWICE A DAY, # 180 tablet, Refills 1, Tot. Refills 1, Instructions Replace Required Details, Route to Pharmacy Electronically, [facility] Start Date: 10/13/21 Status: OrderedhydrALAZINE 25 mg oral tablet 1, tablet, By Mouth, 2 times a day, for 30 days, # 60 tablet, Refills 5, Tot. Refills 5, Physician Stop 03/22/22 13:51:00 EDT, 09/23/21 13:51:00 EST, [id number] Start Date: 09/23/21 Stop Date: 03/22/22 Status: OrderedLORazepam 0.5 mg oral tablet See Instructions, TAKE 1 TABLET BY MOUTH TWICE A DAY NEEDED FOR ANXIETY, # 42 tablet, 0 Refills, Soft Stop, 08/17/20 9:01:00 EST, [facility] 170.18, cm, 06/26/19 10:19:00 EDT, Height Start Date: 08/17/20 Status: Orderedlovastatin 20 mg oral tablet See Instructions, TAKE 1 TABLET BY MOUTH EVERY DAY WITH EVENING MEAL, # 30 tablet, 0 Refills, 05/08/21 7:36:00 EDT, [id number] 170.18, cm, 06/26/19 10:19:00 EDT, Height Start Date: 05/08/21 Status: Orderedlovastatin 20 mg oral tablet See Instructions, TAKE 1 TABLET BY MOUTH EVERY DAY WITH EVENING MEAL, # 90 tablet, 1 Refills, [facility]ORE [id number] Start Date: 10/13/21 Status: OrderedNovoLOG FlexPen 100 units/mL injectable solution See Instructions, Subcutaneous Infusion 3 times a day before meals per Sliding Scale. No more than 24 units in a 24 hour period., # 3 mL, 11 Refills, Maintenance, 09/15/21 12:59:00 EST, [facility] Start Date: 09/15/21 Status: Orderedolanzapine 20 mg oral tablet 1 tablet, By Mouth, Daily, # 90 tablet, 1 Refills, 10/10/21 13:47:00 EST, [facility] Start Date: 10/10/21 Status: OrderedPen [place], 30 G x 8 mm BD Ultra [...] capsule = 150 mg, By Mouth, Daily, Take with 75 mg of Venlafaxine to equal 225 mg total daily., # 90 capsule, 0 Refills, Soft Stop, 09/06/21 16:35:00 EST, [facility]/pharmacy #[id number] Start Date: 09/06/21 Stop Date: 12/05/21 Status: Orderedvenlafaxine 150 mg oral capsule, extended release See Instructions, TAKE 1 CAPSULE BY MOUTH EVERY DAY WITH 75MG CAP ONCE DAILY, # 90 capsule, 1 Refills, [facility] Start Date: 10/13/21 Status: Orderedvenlafaxine 75 mg oral capsule, extended release 1 capsule, By Mouth, Daily, # 90 capsule, 0 Refills, Maintenance, 09/06/21 16:36:00 EST, [facility]/pharmacy #[id number] Start Date: 09/06/21 Status: Ordered Problem List Condition Effective Dates [...]
--- OUTSIDE RECORDS SUMMARY | 2022-06-29 09:59 | XMS_ITS | Continuity of Care Document ---
:1955 Author Organization [facility] Address [address] [place] [id number]- Care Team Providers Name Role Phone Cm ROSARIO, Kayy Kulkarni Primary Care Physician Encounter [facility] Date(s): 08/23/20 - 09/22/20 [facility] [address] [place], [place] [address] Allergies, Adverse Reactions, Alerts Substance Reaction Severity [...] tetanus-diphtheria toxoids (Td) 12/22/04 Given 1Result Comment: [facility] [id number] Note: vis Admin Note: Pt reports received while in hospital. [facility] [place]ations aero chamber aero chamber, with albuterol, By Mouth, Every 6 hours, PRN sob /wheeze, # 1 applicator, Refills 0, Tot. Refills 0, Maintenance, 11/08/10 11:23:49 Start Date: 11/08/10 Status: Orderedatenolol 50 mg oral tablet 100 mg, 2, tablet, By Mouth, Daily, # 180 tablet, Refills 1, Tot. Refills 1, Maintenance, 12/11/19 10:36:00 EDT, Route to Pharmacy Electronically, [facility]/pharmacy #[id number], 170.18, cm, 06/26/19 10:19:00 EDT,Height Start Date: 12/11/19 Stop Date: 06/08/20 Status: OrderedColace sodium 100 mg oral capsule 100 mg, 1, capsule, By Mouth, 2 times a day, PRN, with plenty of water, # 60 capsule, Refills 1, Tot. Refills 1, Maintenance, for constipation, 10/28/18 11:12:39 EST, Route to Pharmacy Electronically, 9 [id number], [facility]/pharmacy... Start Date: 10/28/18 Status: OrderedFreestyle Lite Lancets [...] Refills, Maintenance, 08/17/20 8:59:00 EST, ER Tablet, [facility]/pharmacy #[id number], Partial fill upon patient request if the prescription is for a schedule II opioid drug., 170.18, cm, 06/26/19 10:19:00 EDT, Height Start Date: 08/17/20 Stop Date: 02/13/21 Status: OrderedhydrALAZINE 25 mg oral tablet 25 mg, 1, tablet, By Mouth, 2 times a day, # 180 tablet, Refills 1, Tot. Refills 1, Maintenance, 08/17/20 8:57:00 EST, [id number] 170.18, cm, 06/26/19 10:19:00 EDT, Height Start Date: 08/17/20 Stop Date: 02/13/21 Status: OrderedLORazepam 0.5 mg oral tablet See Instructions, TAKE 1 TABLET BY MOUTH TWICE A DAY NEEDED FOR ANXIETY, # 42 tablet, 0 Refills, Soft Stop, 08/17/20 9:01:00 EST, [facility] 170.18, cm, 06/26/19 10:19:00 EDT, Height Start Date: 08/17/20 Status: Orderedlovastatin 20 mg oral tablet 1 tablet = 20 mg, By Mouth, Daily, with evening meal, # 90 tablet, 1 Refills, Maintenance, 08/16/20 16:45:00 EST, Tablet, [facility] 170.18, cm, 06/26/19 10:19:00 EDT, Height Start Date: 08/16/20 Stop Date: 02/12/21 Status: OrderedNovoLOG FlexPen 100 units/mL injectable solution See Instructions, Subcutaneous Infusion 3 times a day before meals per Sliding Scale. No more than 24 units in a 24 hour period., # 3 mL, 11 Refills, Maintenance, 08/22/20 18:42:00 EST, [facility]/pharmacy #1, 170.18, cm, 06/26/19 10:19:00 EDT, Height Start Date: 08/22/20 Status: Orderedolanzapine 20 mg oral tablet See Instructions, TAKE 1 TABLET BY MOUTH EVERY DAY, # 90 tablet, 1 Refills, Maintenance, [facility]ORE 62274, 170.18, cm, 06/26/19 10:19:00 EDT, Height Start [...] Date: 08/17/20 Stop Date: 09/16/20 Status: OrderedPen [place], 30 G x 8 mm BD Ultra [...] IN WATER OR JUICE EVERY DAY NEEDED, [id number] Start Date: 06/26/19 Status: Orderedpolyethylene glycol 3350 [...] Refills, Soft Stop, 01/01/20 12:46:00 EDT, [facility], 170.18, cm, 06/26/19 10:19:00 [...]
--- OUTSIDE RECORDS SUMMARY | 2022-06-29 10:00 | XMS_ITS | Continuity of Care Document ---
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 [facility] [place] aero chamber aero chamber, with albuterol, By Mouth, Every 6 hours, PRN sob /wheeze, # 1 applicator, Refills 0, Tot. Refills 0, Maintenance, 11/08/10 11:23:49 Start Date: 11/08/10 Status: Orderedatenolol 50 mg oral tablet 100 mg, 2, tablet, By Mouth, Daily, # 180 tablet, Refills 1, Tot. Refills 1, Maintenance, 12/11/19 10:36:00 EDT, Route to Pharmacy Electronically, [facility]/pharmacy #[id number], 170.18, cm, 06/26/19 10:19:00 EDT,Height Start Date: 12/11/19 Stop Date: 06/08/20 Status: Orderedatenolol 50 mg oral tablet See Instructions, TAKE 2 TABLETS BY MOUTH EVERY DAY, # 180 tablet, Refills 1, Maintenance, Instructions Replace Required Details, Route to Pharmacy Electronically, [facility] 97216, 170.18, cm, 06/26/1910:19:00 EDT, Height Start Date: 09/26/20 Status: OrderedColace sodium 100 mg oral capsule 100 mg, 1, capsule, By Mouth, 2 times a day, PRN, with plenty of water, # 60 capsule, Refills 1, Tot. Refills 1, Maintenance, for constipation, 10/28/18 11:12:39 EST, Route to Pharmacy Electronically, 9 [id number], [facility]/pharmacy... Start Date: 10/28/18 Status: OrderedFreestyle Lite Lancets [...] Refills, Maintenance, 08/17/20 8:59:00 EST, ER Tablet, [facility]/pharmacy #[id number], Partial fill upon patient request if the prescription is for a schedule II opioid drug., 170.18, cm, 06/26/19 10:19:00 EDT, Height Start Date: 08/17/20 Stop Date: 02/13/21 Status: OrderedhydrALAZINE 25 mg oral tablet 25 mg, 1, tablet, By Mouth, 2 times a day, # 180 tablet, Refills 1, Tot. Refills 1, Maintenance, 08/17/20 8:57:00 EST, Route to Pharmacy Electronically, [facility]/pharmacy #[id number], 170.18, cm, 06/26/19 10:19:00 EDT, Height Start Date: 08/17/20 Stop Date: 02/13/21 Status: OrderedLORazepam 0.5 mg oral tablet See Instructions, TAKE 1 TABLET BY MOUTH TWICE A DAY NEEDED FOR ANXIETY, # 42 tablet, 0 Refills, Soft Stop, 08/17/20 9:01:00 EST, [facility]/pharmacy #2070, 170.18, cm, 06/26/19 10:19:00 EDT, Height Start Date: 08/17/20 Status: Orderedlovastatin 20 mg oral tablet 1 tablet = 20 mg, By Mouth, Daily, with evening meal, # 90 tablet, 1 Refills, Maintenance, 08/16/20 16:45:00 EST, Tablet, [facility]/pharmacy #2070, 170.18, cm, 06/26/19 10:19:00 EDT, Height Start Date: 08/16/20 Stop Date: 02/12/21 Status: OrderedNovoLOG FlexPen 100 units/mL injectable solution See Instructions, Subcutaneous Infusion 3 times a day before meals per Sliding Scale. No more than 24 units in a 24 hour period., # 3 mL, 11 Refills, Maintenance, 08/22/20 18:42:00 EST, [facility]/pharmacy #2070, 170.18, cm, 06/26/19 10:19:00 EDT, Height Start Date: 08/22/20 Status: Orderedolanzapine 20 mg oral tablet See Instructions, TAKE 1 TABLET BY MOUTH EVERY DAY, # 90 tablet, 1 Refills, Maintenance, [facility] 7[facility]39, 170.18, cm, 06/26/19 10:19:00 EDT, Height Start [...] Date: 08/17/20 Stop Date: 09/16/20 Status: OrderedPen [place], 30 G x 8 mm BD Ultra [...] # 90 capsule, 1 Refills, Soft Stop, 09/30/20 10:51:00 EST, [facility], 170.18, cm, 06/26/19 10:19:00 EDT, Height Start Date: 09/30/20 Stop Date: 03/29/21 Status: Orderedvenlafaxine 75 mg oral capsule, extended release 1 capsule = 75 mg, By Mouth, Daily, # 90 capsule, 1 Refills, Soft Stop, 09/23/20 10:04:00 EST, [facility]/pharmacy #2071, 170.18, cm, 06/26/19 10:19:00 EDT, Height Start Date: 09/23/20 Stop Date: 03/22/21 Status: Ordered Problem List Condition Effective Dates [...]
--- OUTSIDE RECORDS SUMMARY | 2022-06-29 10:00 | XMS_ITS | Continuity of Care Document ---
:1955 Author Organization [email or web address] Address [address] [place] [phone]- Care Team Providers Name Role Phone Cm ROSARIO, Kayy Kulkarni Primary Care Physician Encounter [facility] Date(s): 07/28/20 - 08/27/20 [email or web address] [address], [place] [address] Allergies, Adverse Reactions, Alerts Substance Reaction Severity [...] tetanus-diphtheria toxoids (Td) 12/22/04 Given 1Result Comment: [facility] [id number] Note: vis Admin Note: Pt reports received while in hospital. [facility] Medications aero chamber aero chamber, with albuterol, By Mouth, Every 6 hours, PRN sob /wheeze, # 1 applicator, Refills 0, Tot. Refills 0, Maintenance, 11/08/10 11:23:49 Start Date: 11/08/10 Status: Orderedatenolol 50 mg oral tablet 100 mg, 2, tablet, By Mouth, Daily, # 180 tablet, Refills 1, Tot. Refills 1, Maintenance, 12/11/19 10:36:00 EDT, Route to Pharmacy Electronically, [facility]/pharmacy #[id number], 170.18, cm, 06/26/19 10:19:00 EDT,Height Start Date: 12/11/19 Stop Date: 06/08/20 Status: OrderedColace sodium 100 mg oral capsule 100 mg, 1, capsule, By Mouth, 2 times a day, PRN, with plenty of water, # 60 capsule, Refills 1, Tot. Refills 1, Maintenance, for constipation, 10/28/18 11:12:39 EST, Route to Pharmacy Electronically, 9 [id number], [facility]/pharmacy... Start Date: 10/28/18 Status: OrderedFreestyle [...] Refills, Maintenance, 08/17/20 8:59:00 EST, ER Tablet, [facility]/pharmacy #[id number], Partial fill upon patient request if the prescription is for a schedule II opioid drug., 170.18, cm, 06/26/19 10:19:00 EDT, Height Start Date: 08/17/20 Stop Date: 02/13/21 Status: OrderedhydrALAZINE 25 mg oral tablet 25 mg, 1, tablet, By Mouth, 2 times a day, # 180 tablet, Refills 1, Tot. Refills 1, Maintenance, 08/17/20 8:57:00 EST, [id number] 170.18, cm, 06/26/19 10:19:00 EDT, Height Start Date: 08/17/20 Stop Date: 02/13/21 Status: OrderedLORazepam 0.5 mg oral tablet See Instructions, TAKE 1 TABLET BY MOUTH TWICE A DAY NEEDED FOR ANXIETY, # 42 tablet, 0 Refills, Soft Stop, 08/17/20 9:01:00 EST, [facility] 170.18, cm, 06/26/19 10:19:00 EDT, Height Start Date: 08/17/20 Status: Orderedlovastatin 20 mg oral tablet 1 tablet = 20 mg, By Mouth, Daily, with evening meal, # 90 tablet, 1 Refills, Maintenance, 08/16/20 16:45:00 EST, [facility] 170.18, cm, 06/26/19 10:19:00 EDT, Height Start Date: 08/16/20 Stop Date: 02/12/21 Status: OrderedNovoLOG FlexPen 100 units/mL injectable solution See Instructions, Subcutaneous Infusion 3 times a day before meals per Sliding Scale. No more than 24 units in a 24 hour period., # 3 mL, 11 Refills, Maintenance, 08/22/20 18:42:00 EST, [facility]/pharmacy #1, 170.18, cm, 06/26/19 10:19:00 EDT, Height Start Date: 08/22/20 Status: Orderedolanzapine 20 mg oral tablet See Instructions, TAKE 1 TABLET BY MOUTH EVERY DAY, # 90 tablet, 1 Refills, Maintenance, [facility] STORE 08139, 170.18, cm, 06/26/19 10:19:00 EDT, Height Start [...] Date: 08/17/20 Stop Date: 09/16/20 Status: OrderedPen [place], 30 G x 8 mm BD Ultra [...]
--- OUTSIDE RECORDS SUMMARY | 2022-06-29 10:00 | XMS_ITS | Continuity of Care Document ---
:1955 Author Organization [facility] Address [address] [place] [address]- Care Team Providers Name Role Phone Kayy Pabon NP Primary Care Physician Encounter [facility] Date(s): 06/28/20 - 08/05/20 [facility] [address] [place] [address]- Attending Physician: Not on Staff, Attending MD Referring Physician: Kayy Pabon NP Allergies, Adverse Reactions, Alerts Substance Reaction Severity [...] toxoids (Td) 12/22/04 Given 1Result Comment: [facility] [id number] Note: vis Admin Note: Pt reports received while in hospital. [facility] Medications aero chamber aero chamber, with albuterol, By Mouth, Every 6 hours, PRN sob /wheeze, # 1 applicator, Refills 0, Tot. Refills 0, Maintenance, 11/08/10 11:23:49 Start Date: 11/08/10 Status: Orderedatenolol 50 mg oral tablet 100 mg, 2, tablet, By Mouth, Daily, # 180 tablet, Refills 1, Tot. Refills 1, Maintenance, 12/11/19 10:36:00 EDT, Route to Pharmacy Electronically, [facility], 170.18, cm, 06/26/19 10:19:00 EDT,Height Start Date: 12/11/19 Stop Date: 06/08/20 Status: Orderedclopidogrel 75 mg oral tablet See Instructions, TAKE 1 TABLET BY MOUTH EVERY DAY, # 90 tablet, Refills 1, Maintenance, Instructions Replace Required Details, Route to Pharmacy Electronically, [facility] 53450, 170.18, cm, 06/26/19 10:19:00 EDT, Height Start Date: 03/14/20 Status: OrderedColace sodium 100 mg oral capsule 100 mg, 1, capsule, By Mouth, 2 times a day, PRN, with plenty of water, # 60 capsule, Refills 1, Tot. Refills 1, Maintenance, for constipation, 10/28/18 11:12:39 EST, Route to Pharmacy Electronically, 9 [id number], [facility]/pharmacy... Start Date: 10/28/18 Status: OrderedFreestyle Lite [...] EDT, Height Start Date: 07/01/20 Status: OrderedglipiZIDE 10 mg oral tablet See Instructions, TAKE 1 TABLET BY MOUTH TWICE A DAY, # 180 tablet, 0 Refills, Soft Stop, 02/04/20 17:13:00 EDT, [facility]2071, 170.18, cm, 06/26/19 10:19:00 EDT, Height Start Date: 02/04/20 Status: OrderedglipiZIDE 10 mg oral tablet See Instructions, TAKE 1 TABLET BY MOUTH TWICE A DAY, # 180 tablet, 1 Refills, Maintenance, [facility], 170.18, cm, 06/26/19 10:19:00 EDT, Height Start Date: 05/10/20 Status: OrderedhydrALAZINE 25 mg oral tablet 25 mg, 1, tablet, By Mouth, 2 times a day, # 180 tablet, Refills 1, Tot. Refills 1, Maintenance, 01/15/20 16:34:00 EDT, Route to Pharmacy Electronically, [facility], 170.18, cm, 06/26/19 10:19:00 EDT, Height Start Date: 01/15/20 Stop Date: 07/13/20 Status: OrderedLORazepam 0.5 mg oral tablet See Instructions, TAKE 1 TABLET BY MOUTH TWICE A DAY NEEDED FOR ANXIETY, # 42 tablet, 0 Refills, Soft Stop, 04/30/20 15:23:00 EDT, [facility], 170.18, cm, 06/26/19 10:19:00 EDT, Height Start Date: 04/30/20 Status: Orderedlovastatin 20 mg oral tablet 1 tablet = 20 mg, By Mouth, Daily, with evening meal, # 90 tablet, 1 Refills, Maintenance, 12/16/19 10:39:00 EDT, Tablet, [facility] #1, 170.18, cm, 06/26/19 10:19:00 EDT, Height Start Date: 12/16/19 Stop Date: 06/13/20 Status: Orderedolanzapine 20 mg oral tablet See Instructions, TAKE 1 TABLET BY MOUTH EVERY DAY, # 90 tablet, 1 Refills, Maintenance, [facility], 170.18, cm, 06/26/19 10:19:00 EDT, Height Start Date: 05/05/20 Status: Orderedolanzapine 20 mg oral tablet 1 tablet = 20 mg, By Mouth, Daily, # 90 tablet, 1 Refills, Maintenance, 12/11/19 10:37:00 EDT, [facility] #2070, 170.18, cm, 06/26/19 10:19:00 EDT, Height Start Date: 12/11/19 Stop Date: 06/08/20 Status: OrderedPlavix 75 mg oral tablet 75 mg, 1, tablet, By Mouth, Daily, # 90 tablet, Refills 1, Tot. Refills 1, Maintenance, 06/26/19 10:44:35 EDT, Route to Pharmacy Electronically, [id number], [facility] #2070 Start Date: 06/26/19 Stop Date: 12/23/19 Status: Orderedpolyethylene glycol 3350 oral powder for reconstitution See Instructions, # 255 Gm, TAKE 17 GRAMS DISSOLVED IN WATER OR JUICE EVERY DAY NEEDED, [facility]2070 Start Date: 06/26/19 Status: Orderedpolyethylene glycol 3350 [...] Maintenance, 03/19/16 14:24:28 Start Date: 03/19/16 Status: Orderedspironolactone 25 mg oral tablet 25 mg, 1, tablet, By Mouth, Daily, # 90 tablet, Refills 1, Tot. Refills 1, Soft Stop, 12/16/19 15:44:00 EDT, Route to Pharmacy Electronically, [facility] #2070, 170.18, cm, 06/26/19 10:19:00 EDT, Height Start Date: 12/16/19 Stop Date: 06/13/20 Status: Orderedvenlafaxine 150 mg oral capsule, extended release 1 capsule = 150 mg, By Mouth, Daily, # 90 capsule, 1 Refills, Soft Stop, 12/16/19 15:46:00 EDT, [facility]/pharm[facility] #1, 170.18, cm, 06/26/19 10:19:00 EDT, Height Start Date: 12/16/19 Stop Date: 06/13/20 Status: Orderedvenlafaxine 150 mg oral capsule, extended release 150 mg, 1, capsule, By Mouth, Daily, with food, # 90 capsule, Refills 1, Tot. Refills 1, Maintenance, 10/28/18 11:12:13 EST, Route to Pharmacy Electronically, [id number], [facility] #207 Start Date: 10/28/18 Stop Date: 04/26/19 Status: Orderedvenlafaxine 75 mg oral capsule, extended release 1 capsule = 75 mg, By Mouth, Daily, # 90 capsule, 1 Refills, Soft Stop, 01/01/20 12:46:00 EDT, [facility] #2070, 170.18, cm, 06/26/19 10:19:00 EDT, Height [...]
--- OUTSIDE RECORDS SUMMARY | 2022-06-29 10:00 | XMS_ITS | Continuity of Care Document ---
:1955 Author Organization [facility] Address [address] [place] [address]- Care Team Providers Name Role Phone Kayy Pabon NP Primary Care Physician Encounter [facility] Date(s): 09/15/21 - 09/22/21 [facility] [address] [place] [address]- Encounter Diagnosis COPD - Chronic obstructive pulmonary disease (Discharge Diagnosis) - 09/17/21 Diabetes mellitus (Discharge Diagnosis) - 09/17/21 Chronic diastolic CHF (congestive heart failure) (Discharge Diagnosis) - 09/17/21 Depression (Discharge Diagnosis) - 09/17/21 CVA - Cerebrovascular accident (Discharge Diagnosis) - 09/17/21 Hypertension (Discharge Diagnosis) - 09/17/21 Attending Physician: Nasim Agosto MD Referring Physician: Kayy Pabon NP Allergies, Adverse Reactions, Alerts No Known Allergies [...] toxoids (Td) 12/22/04 Given 1Result Comment: [facility] [id number] Comment: [facility] [id number] Note: vis Admin Note: Pt reports received while in hospital. [facility] Medications aero chamber aero chamber, with albuterol, By Mouth, Every 6 hours, PRN sob /wheeze, # 1 applicator, Refills 0, Tot. Refills 0, Maintenance, 11/08/10 11:23:49 Start Date: 11/08/10 Status: Orderedaspirin 81 mg oral delayed release tablet 81 mg, 1, tablet, By Mouth, Daily, # 90 tablet, Refills 1, Tot. Refills 1, Maintenance, 09/15/21 12:58:00 EST, Route to Pharmacy Electronically, [facility]/pharmacy #[id number], Partial fill upon patient request ifthe prescription [...] 11:12:39 EST, Route to Pharmacy Electronically, 9 [id number], [facility]/pharmacy... Start Date: 10/28/18 Status: OrderedFREESTYLE 28G LANCETS [...] tablet, Refills 0, Route to Pharmacy Electronically, [facility] STORE [facility]164 Start Date: 07/31/21 Status: OrderedhydrALAZINE 25 mg oral tablet 1, tablet, By Mouth, 2 times a day, # 60 tablet, Refills 0, Tot. Refills 0, Maintenance, 08/23/21 15:44:00 EST, [facility] Start Date: 08/23/21 Stop Date: 09/22/21 Status: OrderedLORazepam 0.5 mg oral tablet See Instructions, TAKE 1 TABLET BY MOUTH TWICE A DAY NEEDED FOR ANXIETY, # 42 tablet, 0 Refills, Soft Stop, 08/17/20 9:01:00 EST, [facility] 170.18, cm, 06/26/19 10:19:00 EDT, Height Start Date: 08/17/20 Status: Orderedlovastatin 20 mg oral tablet See Instructions, TAKE 1 TABLET BY MOUTH EVERY DAY WITH EVENING MEAL, # 30 tablet, 0 Refills, 05/08/21 7:36:00 EDT, [facility] 170.18, cm, 06/26/19 10:19:00 EDT, Height Start Date: 05/08/21 Status: OrderedNovoLOG FlexPen 100 units/mL injectable solution See Instructions, Subcutaneous Infusion 3 times a day before meals per Sliding Scale. No more than 24 units in a 24 hour period., # 3 mL, 11 Refills, Maintenance, 09/15/21 12:59:00 EST, [facility] Start Date: 09/15/21 Status: Orderedolanzapine 20 mg oral tablet 1 tablet, By Mouth, Daily, # 90 tablet, 0 Refills, [facility] STORE 37401, 170.18, cm, 06/26/19 10:19:00 EDT, Height Start Date: 05/09/21 Status: OrderedPen [place], 30 G x 8 mm BD Ultra [...] 0 Refills, Soft Stop, 09/06/21 16:35:00 EST, [facility] Start Date: 09/06/21 Stop Date: 12/05/21 Status: Orderedvenlafaxine 75 mg oral capsule, extended release 1 capsule, By Mouth, Daily, # 90 capsule, 0 Refills, Maintenance, 09/06/21 16:36:00 EST, [facility]/pharmacy #2071 Start Date: 09/06/21 Status: Ordered Problem [...] Active affecting nondominant side(Confirmed) Tobacco abuse(Confirmed) Active Diagnosis Diagnosis Type Effective Dates Health Clinical Infor mant Status Service COPD - Chronic Discharge 09/17/21 obstructive pulmonary Diagnosis disease Chronic diastolic CHF Discharge 09/17/21 (congestive heart Diagnosis failure) Diabetes mellitus Discharge 09/17/21 Diagnosis Depression Discharge 09/17/21 Diagnosis CVA - Cerebrovascular Discharge 09/17/21 accident Diagnosis Hypertension Discharge 09/17/21 Diagnosis Social History Social History Type Response Smoking Status Former smoker; Type: Cigaret brandon; Other: 1ppd; entered on: 01/08/17 Sex
--- OUTSIDE RECORDS SUMMARY | 2022-06-29 10:00 | XMS_ITS | Continuity of Care Document ---
:1955 Author Organization [facility] Address [address] [place] [address]- Care Team Providers Name Role Phone Kayy Pabon NP Primary Care Physician Encounter [facility] Date(s): 02/12/22 - 02/19/22 [facility] [address] [place] [address]- Attending Physician: Kayy Pabon NP Allergies, Adverse Reactions, [...] tetanus-diphtheria toxoids (Td) 12/22/04 Given 1Result Comment: [facility] [id number] Comment: [facility] [id number] Note: vis Admin Note: Pt reports received [...] 09/15/21 12:58:00 EST, Route to Pharmacy Electronically, [facility]/pharmacy #[id number], Partial fill upon patient request ifthe prescription is for a schedule II opioid drug. Start Date: 09/15/21 Stop Date: 03/14/22 Status: Orderedatenolol 50 mg oral tablet See Instructions, TAKE 1 TABLET BY MOUTH EVERY DAY, # 180 tablet, Refills 1, Tot. Refills 1, Maintenance, 02/12/22 11:12:00 EDT, Instructions Replace Required Details, Route to Pharmacy Electronically,[facility] #[id number], 170.18, cm, 02/12/22 10:54:0... Start Date: 02/12/22 Status: OrderedColace sodium 100 mg oral capsule 100 mg, 1, capsule, By Mouth, 2 times a day, PRN, with plenty of water, # 60 capsule, Refills 1, Tot. Refills 1, Maintenance, for constipation, 10/28/18 11:12:39 EST, Route to Pharmacy Electronically, 9 [id number], [facility]/pharmacy... Start Date: 10/28/18 Status: OrderedFREESTYLE 28G LANCETS [...] tablet, Refills 0, Route to Pharmacy Electronically, [facility] STORE [address]248 Start Date: 07/31/21 Status: OrderedglipiZIDE 5 mg oral tablet See Instructions, TAKE 1 TABLET BY MOUTH TWICE A DAY, # 180 tablet, Refills 1, Tot. Refills 1, Instructions Replace Required Details, Route to Pharmacy Electronically, [facility] STORE [address]1892 Start Date: 10/13/21 Status: OrderedhydrALAZINE 25 mg oral tablet 1, tablet, By Mouth, 2 times a day, for 30 days, # 60 tablet, Refills 5, Tot. Refills 5, Physician Stop 08/11/22 11:12:00 EST, 02/12/22 11:12:00 EDT, [facility] 170.18, cm, 02/12/22 10:54:00 EDT, Height Start Date: 02/12/22 Stop Date: 08/11/22 Status: OrderedLORazepam 0.5 mg oral tablet See Instructions, TAKE 1 TABLET BY MOUTH TWICE A DAY NEEDED FOR ANXIETY, # 42 tablet, 0 Refills, Soft Stop, 02/12/22 11:15:00 EDT, [facility] 170.18, cm, 02/12/22 10:54:00 EDT, Height Start Date: 02/12/22 Status: Orderedlovastatin 20 mg oral tablet See Instructions, TAKE 1 TABLET BY MOUTH EVERY DAY WITH EVENING MEAL, # 30 tablet, 0 Refills, 05/08/21 7:36:00 EDT, [facility], 170.18, cm, 06/26/19 10:19:00 EDT, Height Start Date: 05/08/21 Status: Orderedlovastatin 20 mg oral tablet See Instructions, TAKE 1 TABLET BY MOUTH EVERY DAY WITH EVENING MEAL, # 90 tablet, 1 Refills, [facility]753 Start Date: 10/13/21 Status: OrderedNovoLOG FlexPen 100 units/mL injectable solution See Instructions, Subcutaneous Infusion 3 times a day before meals per Sliding Scale. No more than 24 units in a 24 hour period., # 3 mL, 11 Refills, Maintenance, 09/15/21 12:59:00 EST, [facility] #[facility] Start Date: 09/15/21 Status: Orderedolanzapine 20 mg oral tablet 1 tablet, By Mouth, Daily, # 90 tablet, 1 Refills, 10/10/21 13:47:00 EST, [facility] Start Date: 10/10/21 Status: OrderedPen [place], 30 G x 8 mm BD Ultra [...] 150 mg oral capsule, extended release 1 capsule, By Mouth, Daily, # 90 capsule, 0 Refills, [facility] [address]91 Start Date: 12/26/21 Status: Orderedvenlafaxine 75 mg oral capsule, extended release 1 capsule, By Mouth, Daily, # 90 capsule, 0 Refills, [facility]344 Start Date: 12/26/21 Status: Ordered Problem List Condition Effective Dates [...] Active affecting nondominant side(Confirmed) Tobacco abuse(Confirmed) Active Vital Signs Most recent to oldest [Reference Range]: 1 Height 170.18 cm (02/12/22 10:54 AM) Oxygen Saturation [94-100 %] 92 % *L* (02/12/22 10:54 AM) Pulse Rate [55-90 bpm] 89 bpm (02/12/22 10:54 AM) Blood Pressure [90-138/55-84 mm Hg] 116/74 mm Hg (02/12/22 10:54 AM) Temperature [96.8-100.4 DegF] 97.3 DegF (02/12/22 10:54 AM) Mode of Delivery (Oxygen) Room air (02/12/22 10:54 AM) Blood pressure sites Arm, left (02/12/22 10:54 AM) Temperature Route Temporal (02/12/22 10:54 AM) Social History Social History Type Response Smoking Status Former smoker; Type: Cigaret brandon; Other: 1ppd; entered on: 01/08/17 Sex
--- OUTSIDE RECORDS SUMMARY | 2022-06-29 10:00 | XMS_ITS | Continuity of Care Document ---
:1955 Author Organization [facility] Address [address] [place] [id number]- Care Team Providers Name Role Phone Cm ROSARIO, Kayy Kulkarni Primary Care Physician [facility]counter [facility] Date(s): 08/15/20 - 09/14/20 [facility] [address] [place], [place] [address] Allergies, Adverse Reactions, Alerts Substance Reaction Severity [...] toxoids (Td) 12/22/04 Given 1Result Comment: [facility] [id number] Note: vis Admin Note: Pt reports received while in hospital. [facility] Medications aero chamber aero chamber, with albuterol, By Mouth, Every 6 hours, PRN sob /wheeze, # 1 applicator, Refills 0, Tot. Refills 0, Maintenance, 11/08/10 11:23:49 Start Date: 11/08/10 Status: Orderedatenolol 50 mg oral tablet 100 mg, 2, tablet, By Mouth, Daily, # 180 tablet, Refills 1, Tot. Refills 1, Maintenance, 12/11/19 10:36:00 EDT, Route to Pharmacy Electronically, [facility]/pharmacy #1, 170.18, cm, 06/26/19 10:19:00 EDT,Height Start Date: 12/11/19 Stop Date: 06/08/20 Status: OrderedColace sodium 100 mg oral capsule 100 mg, 1, capsule, By Mouth, 2 times a day, PRN, with plenty of water, # 60 capsule, Refills 1, Tot. Refills 1, Maintenance, for constipation, 10/28/18 11:12:39 EST, Route to Pharmacy Electronically, 9 [id number], [facility]/pharmacy... Start Date: 10/28/18 Status: OrderedFreestyle Lite Lancets [...] Refills, Maintenance, 08/17/20 8:59:00 EST, ER Tablet, [facility]/pharmacy #[id number], Partial fill upon patient request if the prescription is for a schedule II opioid drug., 170.18, cm, 06/26/19 10:19:00 EDT, Height Start Date: 08/17/20 Stop Date: 02/13/21 Status: OrderedhydrALAZINE 25 mg oral tablet 25 mg, 1, tablet, By Mouth, 2 times a day, # 180 tablet, Refills 1, Tot. Refills 1, Maintenance, 08/17/20 8:57:00 EST, [facility] 170.18, cm, 06/26/19 10:19:00 EDT, Height Start Date: 08/17/20 Stop Date: 02/13/21 Status: OrderedLORazepam 0.5 mg oral tablet See Instructions, TAKE 1 TABLET BY MOUTH TWICE A DAY NEEDED FOR ANXIETY, # 42 tablet, 0 Refills, Soft Stop, 08/17/20 9:01:00 EST, [facility] 170.18, cm, 06/26/19 10:19:00 EDT, Height Start Date: 08/17/20 Status: Orderedlovastatin 20 mg oral tablet 1 tablet = 20 mg, By Mouth, Daily, with evening meal, # 90 tablet, 1 Refills, Maintenance, 08/16/20 16:45:00 EST, Tablet, [facility] 170.18, cm, 06/26/19 10:19:00 EDT, Height Start Date: 08/16/20 Stop Date: 02/12/21 Status: OrderedNovoLOG FlexPen 100 units/mL injectable solution See Instructions, Subcutaneous Infusion 3 times a day before meals per Sliding Scale. No more than 24 units in a 24 hour period., # 3 mL, 11 Refills, Maintenance, 08/22/20 18:42:00 EST, [facility]/pharmacy #1, 170.18, cm, 06/26/19 10:19:00 EDT, Height Start Date: 08/22/20 Status: Orderedolanzapine 20 mg oral tablet See Instructions, TAKE 1 TABLET BY MOUTH EVERY DAY, # 90 tablet, 1 Refills, Maintenance, [facility] STORE 80403, 170.18, cm, 06/26/19 10:19:00 EDT, Height Start [...] Date: 08/17/20 Stop Date: 09/16/20 Status: OrderedPen [place], 30 G x 8 mm BD Ultra [...]
--- OUTSIDE RECORDS SUMMARY | 2022-06-29 10:00 | XMS_ITS | Continuity of Care Document ---
:1955 Author Organization [facility] Address [address] [place] [address]- Care Team Providers Name Role Phone Cm ROSARIO, Kayy Kulkarni Primary Care Physician Encounter [facility] Date(s): 05/05/20 - 06/04/20 [facility] [address] [place] [address]- Allergies, Adverse Reactions, Alerts Substance Reaction Severity [...] toxoids (Td) 12/22/04 Given 1Result Comment: [facility] [id number] Note: vis Admin Note: Pt reports received while in hospital. [facility] Medications aero chamber aero chamber, with albuterol, By Mouth, Every 6 hours, PRN sob /wheeze, # 1 applicator, Refills 0, Tot. Refills 0, Maintenance, 11/08/10 11:23:49 Start Date: 11/08/10 Status: Orderedatenolol 50 mg oral tablet 100 mg, 2, tablet, By Mouth, Daily, # 180 tablet, Refills 1, Tot. Refills 1, Maintenance, 12/11/19 10:36:00 EDT, Route to Pharmacy Electronically, [facility]/pharmacy #[id number], 170.18, cm, 06/26/19 10:19:00 EDT,Height Start Date: 12/11/19 Stop Date: 06/08/20 Status: Orderedclopidogrel 75 mg oral tablet See Instructions, TAKE 1 TABLET BY MOUTH EVERY DAY, # 90 tablet, Refills 1, Maintenance, Instructions Replace Required Details, Route to Pharmacy Electronically, [facility] STORE 7[facility]14, 170.18, cm, 06/26/19 10:19:00 EDT, Height Start Date: 03/14/20 Status: OrderedColace sodium 100 mg oral capsule 100 mg, 1, capsule, By Mouth, 2 times a day, PRN, with plenty of water, # 60 capsule, Refills 1, Tot. Refills 1, Maintenance, for constipation, 10/28/18 11:12:39 EST, Route to Pharmacy Electronically, 9 [id number], [facility]/pharmacy... Start Date: 10/28/18 Status: OrderedFreestyle Lite Lancets See Instructions, # 200 each, Refills 11, Tot. Refills 11, Maintenance, DX: 250.02 for qid testing or as directed, 02/18/13 9:02:13 Start Date: 02/18/13 Stop Date: 02/13/14 Status: OrderedFreestyle Lite Monitor See Instructions, # 1 units, Maintenance, for bs testing DX: 250.02, 02/18/13 9:05:14 Start Date: 02/18/13 Status: OrderedFreestyle Lite Test Strips See Instructions, # 200 each, Refills 11, Tot. Refills 11, Maintenance, DX:250.02 for bs testing 4 times a day or as directed, 02/18/13 8:56:47 Start Date: 02/18/13 Stop Date: 02/13/14 Status: OrderedglipiZIDE 10 mg oral tablet See Instructions, TAKE 1 TABLET BY MOUTH TWICE A DAY, # 180 tablet, 0 Refills, Soft Stop, 02/04/20 17:13:00 EDT, [facility]/pharmacy #2071, 170.18, cm, 06/26/19 10:19:00 EDT, Height Start Date: 02/04/20 Status: OrderedglipiZIDE 10 mg oral tablet See Instructions, TAKE 1 TABLET BY MOUTH TWICE A DAY, # 180 tablet, 1 Refills, Maintenance, [facility], 170.18, cm, 06/26/19 10:19:00 EDT, Height Start Date: 05/10/20 Status: OrderedhydrALAZINE 25 mg oral tablet 25 mg, 1, tablet, By Mouth, 2 times a day, # 180 tablet, Refills 1, Tot. Refills 1, Maintenance, 01/15/20 16:34:00 EDT, Route to Pharmacy Electronically, [facility]/pharmacy #[id number], 170.18, cm, 06/26/19 10:19:00 EDT, Height Start Date: 01/15/20 Stop Date: 07/13/20 Status: OrderedLORazepam 0.5 mg oral tablet See Instructions, TAKE 1 TABLET BY MOUTH TWICE A DAY NEEDED FOR ANXIETY, # 42 tablet, 0 Refills, Soft Stop, 04/30/20 15:23:00 EDT, [facility]/pharmacy #1, 170.18, cm, 06/26/19 10:19:00 EDT, Height Start Date: 04/30/20 Status: Orderedlovastatin 20 mg oral tablet 1 tablet = 20 mg, By Mouth, Daily, with evening meal, # 90 tablet, 1 Refills, Maintenance, 12/16/19 10:39:00 EDT, Tablet, [facility]/pharmacy #1, 170.18, cm, 06/26/19 10:19:00 EDT, Height Start Date: 12/16/19 Stop Date: 06/13/20 Status: Orderedolanzapine 20 mg oral tablet See Instructions, TAKE 1 TABLET BY MOUTH EVERY DAY, # 90 tablet, 1 Refills, Maintenance, [facility], 170.18, cm, 06/26/19 10:19:00 EDT, Height Start Date: 05/05/20 Status: Orderedolanzapine 20 mg oral tablet 1 tablet = 20 mg, By Mouth, Daily, # 90 tablet, 1 Refills, Maintenance, 12/11/19 10:37:00 EDT, [facility]/pharmacy #2071, 170.18, cm, 06/26/19 10:19:00 EDT, Height Start Date: 12/11/19 Stop Date: 06/08/20 Status: OrderedPlavix 75 mg oral tablet 75 mg, 1, tablet, By Mouth, Daily, # 90 tablet, Refills 1, Tot. Refills 1, Maintenance, 06/26/19 10:44:35 EDT, Route to Pharmacy Electronically, [id number], [facility]/pharmacy #207 Start Date: 06/26/19 Stop Date: 12/23/19 Status: Orderedpolyethylene glycol 3350 oral powder for reconstitution = 17 Gm, By Mouth, Daily in AM, PRN Other, dissolve in water or juice., # 255 Gm, 1 Refills, Maintenance, 05/05/19 10:20:31 EDT, Powder, 17 Gm By Mouth Daily in AM,PRN:Other,Instr:dissolve in water or juice. Start Date: 05/05/19 Status: Orderedpolyethylene glycol 3350 oral powder for reconstitution See Instructions, # 255 Gm, TAKE 17 GRAMS DISSOLVED IN WATER OR JUICE EVERY DAY NEEDED, [facility]/pharmacy #2070 Start Date: 06/26/19 Status: Orderedsenna - oral tablet 1 tablet, By Mouth, Daily at bedtime, Per med rec 03/19/16 with the pt's . KL, 0 Refills, Maintenance, 03/19/16 14:24:28 Start Date: 03/19/16 Status: Orderedspironolactone 25 mg oral tablet 25 mg, 1, tablet, By Mouth, Daily, # 90 tablet, Refills 1, Tot. Refills 1, Soft Stop, 12/16/19 15:44:00 EDT, Route to Pharmacy Electronically, [facility]/pharmacy #2070, 170.18, cm, 06/26/19 10:19:00 EDT, Height Start Date: 12/16/19 Stop Date: 06/13/20 Status: Orderedvenlafaxine 150 mg oral capsule, extended release 1 capsule = 150 mg, By Mouth, Daily, # 90 capsule, 1 Refills, Soft Stop, 12/16/19 15:46:00 EDT, [facility]/pharmacy #2070, 170.18, cm, 06/26/19 10:19:00 EDT, Height Start Date: 12/16/19 Stop Date: 06/13/20 Status: Orderedvenlafaxine 150 mg oral capsule, extended release 150 mg, 1, capsule, By Mouth, Daily, with food, # 90 capsule, Refills 1, Tot. Refills 1, Maintenance, 10/28/18 11:12:13 EST, Route to Pharmacy Electronically, [id number], [facility]/pharmacy #2071 Start Date: 10/28/18 Stop Date: 04/26/19 Status: Orderedvenlafaxine 75 mg oral capsule, extended release 1 capsule = 75 mg, By Mouth, Daily, # 90 capsule, 1 Refills, Soft Stop, 01/01/20 12:46:00 EDT, [facility]/pharmacy #207, 170.18, cm, 06/26/19 10:19:00 EDT, Height [...]
--- OUTSIDE RECORDS SUMMARY | 2022-06-29 10:00 | XMS_ITS | Continuity of Care Document ---
:1955 Author Organization [facility] Address [address] [place] [address]- Care Team Providers Name Role Phone Cm ROSARIO, Kayy Kulkarni Primary Care Physician Encounter [facility] Date(s): 05/29/22 - 06/28/22 [facility] [address] [place] [id number]- Allergies, Adverse Reactions, Alerts No Known Allergies [...] toxoids (Td) 12/22/04 Given 1Result Comment: [facility] [id number] Comment: [facility] [id number] Note: vis Admin Note: Pt reports received while in hospital. [facility] Medications aero chamber aero chamber, with albuterol, By Mouth, Every 6 hours, PRN sob /wheeze, # 1 applicator, Refills 0, Tot. Refills 0, Maintenance, 11/08/10 11:23:49 Start Date: 11/08/10 Status: Orderedaspirin 81 mg oral delayed release tablet 81 mg, 1, tablet, By Mouth, Daily, # 90 tablet, Refills 1, Tot. Refills 1, Maintenance, 09/15/21 12:58:00 EST, Route to Pharmacy Electronically, [facility]/pharmacy #[id number], Partial fill upon patient request ifthe prescription is for a schedule II opioid drug. Start Date: 09/15/21 Stop Date: 03/14/22 Status: OrderedAspirin Low Dose 81 mg oral delayed release tablet 1 tablet, By Mouth, Daily, # 90 tablet, 1 Refills, [facility] STORE 05029, 170.18, cm, 02/12/22 10:54:00 EDT, Height Start Date: 03/22/22 Status: Orderedatenolol 50 mg oral tablet See Instructions, TAKE 1 TABLET BY MOUTH EVERY DAY, # 180 tablet, Refills 1, Tot. Refills 1, Maintenance, 02/12/22 11:12:00 EDT, Instructions Replace Required Details, Route to Pharmacy Electronically,[facility]/pharmacy #[id number], 170.18, cm, 02/12/22 10:54:0... Start Date: 02/12/22 Status: OrderedColace sodium 100 mg oral capsule 100 mg, 1, capsule, By Mouth, 2 times a day, PRN, with plenty of water, # 60 capsule, Refills 1, Tot. Refills 1, Maintenance, for constipation, 10/28/18 11:12:39 EST, Route to Pharmacy Electronically, 9 [id number], [facility]/pharmacy... Start Date: 10/28/18 Status: OrderedFREESTYLE 28G [...] tablet, Refills 0, Route to Pharmacy Electronically, [facility] Start Date: 07/31/21 Status: OrderedglipiZIDE 5 mg oral tablet See Instructions, TAKE 1 TABLET BY MOUTH TWICE A DAY, # 180 tablet, Refills 1, Tot. Refills 1, Instructions Replace Required Details, Route to Pharmacy Electronically, [facility]87 Start Date: 10/13/21 Status: OrderedglipiZIDE 5 mg oral tablet 1, tablet, By Mouth, 2 times a day, # 180 tablet, Refills 1, Route to Pharmacy Electronically, [facility] , 170.18, cm, 02/12/22 10:54:00 EDT, Height Start Date: 03/22/22 Status: OrderedhydrALAZINE 25 mg oral tablet 1, tablet, By Mouth, 2 times a day, for 30 days, # 60 tablet, Refills 5, Tot. Refills 5, Physician Stop 08/11/22 11:12:00 EST, 02/12/22 11:12:00 EDT, [facility] 170[facility]18, cm, 02/12/22 10:54:00 EDT, Height Start Date: 02/12/22 Stop Date: 08/11/22 Status: OrderedLORazepam 0.5 mg oral tablet See Instructions, TAKE 1 TABLET BY MOUTH TWICE A DAY NEEDED FOR ANXIETY, # 42 tablet, 0 Refills, Soft Stop, 04/13/22 14:38:00 EDT, [facility]/pharmacy #1, 170.18, cm, 02/12/22 10:54:00 EDT, Height Start Date: 04/13/22 Status: Orderedlovastatin 20 mg oral tablet See Instructions, TAKE 1 TABLET BY MOUTH EVERY DAY WITH EVENING MEAL, # 90 tablet, 1 Refills, [facility] , 170.18, cm, 02/12/22 10:54:00 EDT, Height Start Date: 03/22/22 Status: OrderedNovoLOG FlexPen 100 units/mL injectable solution See Instructions, Subcutaneous Infusion 3 times a day before meals per Sliding Scale. No more than 24 units in a 24 hour period., # 3 mL, 11 Refills, Maintenance, 09/15/21 12:59:00 EST, [facility] Start Date: 09/15/21 Status: Orderedolanzapine 20 mg oral tablet 1 tablet, By Mouth, Daily, # 90 tablet, 1 Refills, Maintenance, 06/08/22 9:05:00 EDT, [facility], 170.18, cm, 02/12/22 10:54:00 EDT, Height Start Date: 06/08/22 Status: OrderedPen [place], 30 G x 8 mm BD Ultra [...] Mouth, Daily, # 90 capsule, 0 Refills, [facility], 170.18, cm, 02/12/22 10:54:00 EDT, Height Start Date: 03/22/22 Status: Orderedvenlafaxine 150 mg oral capsule, extended release 1 capsule, By Mouth, Daily, # 90 capsule, 0 Refills, [facility]95 Start Date: 12/26/21 Status: Orderedvenlafaxine 75 mg oral capsule, extended release 1 capsule, By Mouth, Daily, # 90 capsule, 0 Refills, [facility], 170.18, cm, 02/12/22 10:54:00 EDT, Height Start Date: 03/22/22 Status: Orderedvenlafaxine 75 mg oral capsule, extended release 1 capsule, By Mouth, Daily, # 90 capsule, 0 Refills, [facility]61 Start Date: 12/26/21 Status: Ordered Problem List Condition Confirmation Course Effective Dates Status Health I nformant Status CAD - Coronary artery Confirmed Active disease Acute CVA Confirmed Active (cerebrovascular accident) Chronic diastolic CHF Confirmed Active (congestive heart failure) Chronic kidney disease Confirmed Active (CKD) COPD - Chronic Confirmed Active obstructive pulmonary disease CAD (coronary artery Confirmed Active disease) CVA - Cerebrovascular Confirmed 06/12/11 Active accident Depression Confirmed Active Diabetes mellitus Confirmed 09/25/10 Active Diverticulosis Confirmed 09/25/10 Active Fatigue Confirmed Active Gastroesophageal Confirmed Active reflux disease Hypertension Confirmed Active Anxiety and depression Confirmed Active NIDDM - Non-insulin Confirmed Active dependent diabetes mellitus Pain in shoulder Confirmed 06/12/11 Active PAD (peripheral artery Confirmed Active disease) Seizure Confirmed 02/20/13 Active Spastic hemiplegia and Confirmed Active hemiparesis affecting nondominant side Tobacco abuse Confirmed Active Social History Social History Type Response Smoking Status Former smoker; Type: Cigaret brandon; Other: 1ppd; entered on: 01/08/17 Sex Patient Care team information PersonnelName: Cm ROSARIO, Kayy Kulkarni Address: Address: [address] [place] [address] Adult [facility] [place] [address]
--- OUTSIDE RECORDS SUMMARY | 2022-06-29 10:00 | XMS_ITS | Continuity of Care Document ---
:1955 Author Organization [facility] Address [address] [place] [phone]- Care Team Providers Name Role Phone Cm ROSARIO, Kayy Kulkarin Primary Care Physician Encounter [facility] Date(s): 08/15/20 - 09/16/20 [facility] [address] [place] [id number] Attending Physician: Not on Staff, Attending MD [...] 12/22/04 Given 1Result Comment: [facility] [phone] Note: vis Admin Note: Pt reports received while in hospital. [facility] Medications aero chamber aero chamber, with albuterol, By Mouth, Every 6 hours, PRN sob /wheeze, # 1 applicator, Refills 0, Tot. Refills 0, Maintenance, 11/08/10 11:23:49 Start Date: 11/08/10 Status: Orderedatenolol 50 mg oral tablet 100 mg, 2, tablet, By Mouth, Daily, # 180 tablet, Refills 1, Tot. Refills 1, Maintenance, 12/11/19 10:36:00 EDT, Route to Pharmacy Electronically, [facility]/pharmacy #2071, 170.18, cm, 06/26/19 10:19:00 EDT,Height Start Date: 12/11/19 Stop Date: 06/08/20 Status: OrderedColace sodium 100 mg oral capsule 100 mg, 1, capsule, By Mouth, 2 times a day, PRN, with plenty of water, # 60 capsule, Refills 1, Tot. Refills 1, Maintenance, for constipation, 10/28/18 11:12:39 EST, Route to Pharmacy Electronically, 9 [id number], [facility]/pharmacy... Start Date: 10/28/18 Status: OrderedFreestyle Lite Lancets [...] Refills, Maintenance, 08/17/20 8:59:00 EST, ER Tablet, [facility]/pharmacy #[id number], Partial fill upon patient request if the prescription is for a schedule II opioid drug., 170.18, cm, 06/26/19 10:19:00 EDT, Height Start Date: 08/17/20 Stop Date: 02/13/21 Status: OrderedhydrALAZINE 25 mg oral tablet 25 mg, 1, tablet, By Mouth, 2 times a day, # 180 tablet, Refills 1, Tot. Refills 1, Maintenance, 08/17/20 8:57:00 EST, [facility]ically[facility] 170.18, cm, 06/26/19 10:19:00 EDT, Height Start Date: 08/17/20 Stop Date: 02/13/21 Status: OrderedLORazepam 0.5 mg oral tablet See Instructions, TAKE 1 TABLET BY MOUTH TWICE A DAY NEEDED FOR ANXIETY, # 42 tablet, 0 Refills, Soft Stop, 08/17/20 9:01:00 EST, [facility] 170.18, cm, 06/26/19 10:19:00 EDT, Height Start Date: 08/17/20 Status: Orderedlovastatin 20 mg oral tablet 1 tablet = 20 mg, By Mouth, Daily, with evening meal, # 90 tablet, 1 Refills, Maintenance, 08/16/20 16:45:00 EST, Tablet, [facility], 170.18, cm, 06/26/19 10:19:00 EDT, Height Start Date: 08/16/20 Stop Date: 02/12/21 Status: OrderedNovoLOG FlexPen 100 units/mL injectable solution See Instructions, Subcutaneous Infusion 3 times a day before meals per Sliding Scale. No more than 24 units in a 24 hour period., # 3 mL, 11 Refills, Maintenance, 08/22/20 18:42:00 EST, [facility]/pharmacy #1, 170.18, cm, 06/26/19 10:19:00 EDT, Height Start Date: 08/22/20 Status: Orderedolanzapine 20 mg oral tablet See Instructions, TAKE 1 TABLET BY MOUTH EVERY DAY, # 90 tablet, 1 Refills, Maintenance, [facility] STORE 56911, 170.18, cm, 06/26/19 10:19:00 EDT, Height Start [...] Date: 08/17/20 Stop Date: 09/16/20 Status: OrderedPen [place], 30 G x 8 mm BD Ultra [...] IN WATER OR JUICE EVERY DAY NEEDED, [facility]/pharmacy #207 Start Date: 06/26/19 Status: Orderedpolyethylene glycol [...]
--- OUTSIDE RECORDS SUMMARY | 2022-06-29 10:00 | XMS_ITS | Continuity of Care Document ---
:1955 Author Organization [facility] Address [address] [place] [address]- Care Team Providers Name Role Phone Cm ROSARIO, Kayy Kulkarni Primary Care Physician Encounter [facility] Date(s): 04/29/20 - 05/29/20 [facility] [address] [place] [address]- Allergies, Adverse Reactions, Alerts Substance Reaction Severity [...] 1Result Comment: [facility] [id number] Note: vis Admin Note: Pt reports received [...] 12/11/19 10:36:00 EDT, Route to Pharmacy Electronically, [facility]/pharmacy #[id number], 170.18, cm, 06/26/19 10:19:00 EDT,Height Start Date: 12/11/19 Stop Date: 06/08/20 Status: Orderedclopidogrel 75 mg oral tablet See Instructions, TAKE 1 TABLET BY MOUTH EVERY DAY, # 90 tablet, Refills 1, Maintenance, Instructions Replace Required Details, Route to Pharmacy Electronically, [facility] STORE 36050, 170.18, cm, 06/26/19 10:19:00 EDT, Height Start Date: 03/14/20 Status: OrderedColace sodium 100 mg oral capsule 100 mg, 1, capsule, By Mouth, 2 times a day, PRN, with plenty of water, # 60 capsule, Refills 1, Tot. Refills 1, Maintenance, for constipation, 10/28/18 11:12:39 EST, Route to Pharmacy Electronically, 9 [id number], [facility]/pharmacy... Start Date: 10/28/18 Status: OrderedFreestyle [...] 0 Refills, Soft Stop, 02/04/20 17:13:00 EDT, [facility]/pharmacy #2071, 170.18, cm, 06/26/19 10:19:00 EDT, Height Start Date: 02/04/20 Status: OrderedglipiZIDE 10 mg oral tablet See Instructions, TAKE 1 TABLET BY MOUTH TWICE A DAY, # 180 tablet, 1 Refills, Maintenance, [facility], 170.18, cm, 06/26/19 10:19:00 EDT, Height Start Date: 05/10/20 Status: OrderedhydrALAZINE 25 mg oral tablet 25 mg, 1, tablet, By Mouth, 2 times a day, # 180 tablet, Refills 1, Tot. Refills 1, Maintenance, 01/15/20 16:34:00 EDT, Route to Pharmacy Electronically, [facility]/pharmacy #2071, 170.18, cm, 06/26/19 10:19:00 EDT, Height Start Date: 01/15/20 Stop Date: 07/13/20 Status: OrderedLORazepam 0.5 mg oral tablet See Instructions, TAKE 1 TABLET BY MOUTH TWICE A DAY NEEDED FOR ANXIETY, # 42 tablet, 0 Refills, Soft Stop, 04/30/20 15:23:00 EDT, [facility]/pharmacy #1, 170.18, cm, 06/26/19 10:19:00 EDT, Height Start Date: 04/30/20 Status: Orderedlovastatin 20 mg oral tablet 1 tablet = 20 mg, By Mouth, Daily, with evening meal, # 90 tablet, 1 Refills, Maintenance, 12/16/19 10:39:00 EDT, Tablet, [facility]/pharmacy #1, 170.18, cm, 06/26/19 10:19:00 EDT, Height Start Date: 12/16/19 Stop Date: 06/13/20 Status: Orderedolanzapine 20 mg oral tablet See Instructions, TAKE 1 TABLET BY MOUTH EVERY DAY, # 90 tablet, 1 Refills, Maintenance, [facility], 170.18, cm, 06/26/19 10:19:00 EDT, Height Start Date: 05/05/20 Status: Orderedolanzapine 20 mg oral tablet 1 tablet = 20 mg, By Mouth, Daily, # 90 tablet, 1 Refills, Maintenance, 12/11/19 10:37:00 EDT, [facility]/pharmacy #2071, 170.18, cm, 06/26/19 10:19:00 EDT, Height Start Date: 12/11/19 Stop Date: 06/08/20 Status: OrderedPlavix 75 mg oral tablet 75 mg, 1, tablet, By Mouth, Daily, # 90 tablet, Refills 1, Tot. Refills 1, Maintenance, 06/26/19 10:44:35 EDT, Route to Pharmacy Electronically, [id number], [facility]/pharmacy #207 Start Date: 06/26/19 Stop [...] IN WATER OR JUICE EVERY DAY NEEDED, [facility]/pharmacy #2070 Start Date: 06/26/19 Status: [...] 12/16/19 15:44:00 EDT, Route to Pharmacy Electronically, [facility]/pharmacy #2070, 170.18, cm, 06/26/19 10:19:00 EDT, Height Start Date: 12/16/19 Stop Date: 06/13/20 Status: Orderedvenlafaxine 150 mg oral capsule, extended release 1 capsule = 150 mg, By Mouth, Daily, # 90 capsule, 1 Refills, Soft Stop, 12/16/19 15:46:00 EDT, [facility]/pharmacy #2070, 170.18, cm, 06/26/19 10:19:00 EDT, Height Start Date: 12/16/19 Stop Date: 06/13/20 Status: Orderedvenlafaxine 150 mg oral capsule, extended release 150 mg, 1, capsule, By Mouth, Daily, with food, # 90 capsule, Refills 1, Tot. Refills 1, Maintenance, 10/28/18 11:12:13 EST, Route to Pharmacy Electronically, [id number], [facility]/pharmacy #2071 Start Date: 10/28/18 Stop Date: 04/26/19 Status: Orderedvenlafaxine 75 mg oral capsule, extended release 1 capsule = 75 mg, By Mouth, Daily, # 90 capsule, 1 Refills, Soft Stop, 01/01/20 12:46:00 EDT, [facility]/pharmacy #207, 170.18, cm, 06/26/19 10:19:00 [...]
--- OUTSIDE RECORDS SUMMARY | 2022-06-29 10:00 | XMS_ITS | Continuity of Care Document ---
:[address] [facility] Address [address] [place] [id number]- Care Team Providers Name Role Phone Cm ROSARIO, Kayy Kulkarni Primary Care Physician Encounter [facility] Date(s): 09/22/20 - 10/22/20 [facility] [address] [place], [place] [address] Allergies, Adverse Reactions, Alerts Substance Reaction [...] tetanus-diphtheria toxoids (Td) 12/22/04 Given 1Result Comment: [facility] [id number] Note: vis Admin Note: Pt reports received while in hospital[place] [facility] [place]ations aero chamber aero chamber, with albuterol, By Mouth, Every 6 hours, PRN sob /wheeze, # 1 applicator, Refills 0, Tot. Refills 0, Maintenance, 11/08/10 11:23:49 Start Date: 11/08/10 Status: Orderedatenolol 50 mg oral tablet 100 mg, 2, tablet, By Mouth, Daily, # 180 tablet, Refills 1, Tot. Refills 1, Maintenance, 12/11/19 10:36:00 EDT, Route to Pharmacy Electronically, [facility]/pharmacy #[id number], 170.18, cm, 06/26/19 10:19:00 EDT,Height Start Date: 12/11/19 Stop Date: 06/08/20 Status: Orderedatenolol 50 mg oral tablet See Instructions, TAKE 2 TABLETS BY MOUTH EVERY DAY, # 180 tablet, Refills 1, Maintenance, Instructions Replace Required Details, Route to Pharmacy Electronically, [facility]02, 170.18, cm, 06/26/1910:19:00 EDT, Height Start Date: 09/26/20 Status: OrderedColace sodium 100 mg oral capsule 100 mg, 1, capsule, By Mouth, 2 times a day, PRN, with plenty of water, # 60 capsule, Refills 1, Tot. Refills 1, Maintenance, for constipation, 10/28/18 11:12:39 EST, Route to Pharmacy Electronically, 9 [id number], [facility]/pharmacy... Start Date: 10/28/18 Status: OrderedFreestyle Lite Lancets [...] Refills, Maintenance, 08/17/20 8:59:00 EST, ER Tablet, [facility]/pharmacy #207, Partial fill upon patient request if the prescription is for a schedule II opioid drug., 170.18, cm, 06/26/19 10:19:00 EDT, Height Start Date: 08/17/20 Stop Date: 02/13/21 Status: OrderedhydrALAZINE 25 mg oral tablet 25 mg, 1, tablet, By Mouth, 2 times a day, # 180 tablet, Refills 1, Tot. Refills 1, Maintenance, 08/17/20 8:57:00 EST, Route to Pharmacy Electronically, [facility]/pharmacy #2070, 170.18, cm, 06/26/19 10:19:00 EDT, Height Start Date: 08/17/20 Stop Date: 02/13/21 Status: OrderedLORazepam 0.5 mg oral tablet See Instructions, TAKE 1 TABLET BY MOUTH TWICE A DAY NEEDED FOR ANXIETY, # 42 tablet, 0 Refills, Soft Stop, 08/17/20 9:01:00 EST, [facility]/pharmacy #2070, 170.18, cm, 06/26/19 10:19:00 EDT, Height Start Date: 08/17/20 Status: Orderedlovastatin 20 mg oral tablet 1 tablet = 20 mg, By Mouth, Daily, with evening meal, # 90 tablet, 1 Refills, Maintenance, 08/16/20 16:45:00 EST, Tablet, [facility]/pharmacy #2070, 170.18, cm, 06/26/19 10:19:00 EDT, Height Start Date: 08/16/20 Stop Date: 02/12/21 Status: OrderedNovoLOG FlexPen 100 units/mL injectable solution See Instructions, Subcutaneous Infusion 3 times a day before meals per Sliding Scale. No more than 24 units in a 24 hour period., # 3 mL, 11 Refills, Maintenance, 08/22/20 18:42:00 EST, [facility]/pharmacy #2070, 170.18, cm, 06/26/19 10:19:00 EDT, Height Start Date: 08/22/20 Status: Orderedolanzapine 20 mg oral tablet See Instructions, TAKE 1 TABLET BY MOUTH EVERY DAY, # 90 tablet, 1 Refills, Maintenance, [facility]85, 170.18, cm, 06/26/19 10:19:00 EDT, Height Start [...] Date: 08/17/20 Stop Date: 09/16/20 Status: OrderedPen [place], 30 G x 8 mm BD Ultra [...] 1 Refills, Soft Stop, 09/23/20 10:04:00 EST, [facility]/pharmacy #2071, 170.18, cm, 06/26/19 10:19:00 EDT, Height [...]
--- OUTSIDE RECORDS SUMMARY | 2022-06-29 10:00 | XMS_ITS | Continuity of Care Document ---
:1955 Author Organization [facility] Address [address] [place] [address]- Care Team Providers Name Role Phone Kayy Pabon NP Primary Care Physician Encounter [facility] Date(s): 09/15/21 - 12/06/21 [facility] [address] [place] [phone]- Attending Physician: Kayy Pabon NP Allergies, Adverse [...] Given 1Result Comment: [facility] [phone] Comment: [facility] [phone] Note: vis Admin Note: Pt reports received while in hospital. [facility] [place]ations aero chamber aero chamber, with albuterol, By Mouth, Every 6 hours, PRN sob /wheeze, # 1 applicator, Refills 0, Tot. Refills 0, Maintenance, 11/08/10 11:23:49 Start Date: 11/08/10 Status: Orderedaspirin 81 mg oral delayed release tablet 81 mg, 1, tablet, By Mouth, Daily, # 90 tablet, Refills 1, Tot. Refills 1, Maintenance, 09/15/21 12:58:00 EST, Route to Pharmacy Electronically, [facility]/pharmacy #[id number], Partial fill upon patient request ifthe prescription [...] 11:12:39 EST, Route to Pharmacy Electronically, 9 [id number], [facility]/pharmacy... Start Date: 10/28/18 Status: OrderedFREESTYLE 28G LANCETS [...] tablet, Refills 0, Route to Pharmacy Electronically, [facility] Start Date: 07/31/21 Status: OrderedglipiZIDE 5 mg oral tablet See Instructions, TAKE 1 TABLET BY MOUTH TWICE A DAY, # 180 tablet, Refills 1, Tot. Refills 1, Instructions Replace Required Details, Route to Pharmacy Electronically, [facility] Start Date: 10/13/21 Status: OrderedhydrALAZINE 25 mg oral tablet 1, tablet, By Mouth, 2 times a day, for 30 days, # 60 tablet, Refills 5, Tot. Refills 5, Physician Stop 03/22/22 13:51:00 EDT, 09/23/21 13:51:00 EST, [id number] Start Date: 09/23/21 Stop Date: 03/22/22 Status: OrderedLORazepam 0.5 mg oral tablet See Instructions, TAKE 1 TABLET BY MOUTH TWICE A DAY NEEDED FOR ANXIETY, # 42 tablet, 0 Refills, Soft Stop, 08/17/20 9:01:00 EST, [facility], 170.18, cm, 06/26/19 10:19:00 EDT, Height Start Date: 08/17/20 Status: Orderedlovastatin 20 mg oral tablet See Instructions, TAKE 1 TABLET BY MOUTH EVERY DAY WITH EVENING MEAL, # 30 tablet, 0 Refills, 05/08/21 7:36:00 EDT, [facility], 170.18, cm, 06/26/19 10:19:00 EDT, Height Start Date: 05/08/21 Status: Orderedlovastatin 20 mg oral tablet See Instructions, TAKE 1 TABLET BY MOUTH EVERY DAY WITH EVENING MEAL, # 90 tablet, 1 Refills, [facility] [address]154 Start Date: 10/13/21 Status: OrderedNovoLOG FlexPen 100 units/mL injectable solution See Instructions, Subcutaneous Infusion 3 times a day before meals per Sliding Scale. No more than 24 units in a 24 hour period., # 3 mL, 11 Refills, Maintenance, 09/15/21 12:59:00 EST, [facility] Start Date: 09/15/21 Status: Orderedolanzapine 20 mg oral tablet 1 tablet, By Mouth, Daily, # 90 tablet, 1 Refills, 10/10/21 13:47:00 EST, [facility] Start Date: 10/10/21 Status: OrderedPen [place], 30 G x 8 mm BD Ultra [...] 0 Refills, Soft Stop, 09/06/21 16:35:00 EST, [facility] #2071 Start Date: 09/06/21 Stop Date: 12/05/21 Status: Orderedvenlafaxine 150 mg oral capsule, extended release See Instructions, TAKE 1 CAPSULE BY MOUTH EVERY DAY WITH 75MG CAP ONCE DAILY, # 90 capsule, 1 Refills, [facility] Start Date: 10/13/21 Status: Orderedvenlafaxine 75 mg oral capsule, extended release 1 capsule, By Mouth, Daily, # 90 capsule, 0 Refills, Maintenance, 09/06/21 16:36:00 EST, [facility] #2071 Start Date: 09/06/21 Status: Ordered Problem [...]
--- OUTSIDE RECORDS SUMMARY | 2022-06-29 10:00 | XMS_ITS | Continuity of Care Document ---
:1955 Author Organization [facility] Address [address] [place] [address]- Care Team Providers Name Role Phone Cm ROSARIO, Kayy Kulkarni Primary Care Physician Encounter [facility] Date(s): 06/02/21 - 08/23/21 [facility] [address] [place] [address]- Attending Physician: Not on Staff, Attending MD Allergies, Adverse Reactions, Alerts Substance Reaction Severity Status NKA Active Immunizations Given and Recorded Vaccine Date Status Refusal Reason SARS-CoV-2 (COVID-19) mRNA-1273 vaccine 11/22/20 Recorded SARS-CoV-2 (COVID-19) mRNA-1273 vaccine 10/25/20 Recorded influenza virus vaccine, inactivated1 06/26/19 Given influenza virus vaccine, inactivated 09/14/15 Given influenza virus vaccine, inactivated 07/20/14 Given influenza virus vaccine, inactivated2 07/17/13 Given influenza virus vaccine, inactivated 05/24/08 Given pneumococcal 23-valent vaccine 02/15/16 Recorded tetanus/diphtheria/pertussis, acel(Tdap) 09/14/15 Given Influenza Inactive (IM) (oldterm)3 09/25/10 Given Pneumococcal Poly (PPV23) (oldterm) 05/24/08 Given tetanus-diphtheria toxoids (Td) 12/22/04 Given 1Result Comment: [facility] [id number] Note: vis Admin Note: Pt reports received while in hospital. [facility] Medications aero chamber aero chamber, with albuterol, By Mouth, Every 6 hours, PRN sob /wheeze, # 1 applicator, Refills 0, Tot. Refills 0, Maintenance, 11/08/10 11:23:49 Start Date: 11/08/10 Status: Orderedatenolol 50 mg oral tablet 100 mg, 2, tablet, By Mouth, Daily, # 180 tablet, Refills 1, Tot. Refills 1, Maintenance, 12/11/19 10:36:00 EDT, Route to Pharmacy Electronically, [facility]/pharmacy #2071, 170.18, cm, 06/26/19 10:19:00 EDT,Height Start Date: 12/11/19 Stop Date: 06/08/20 Status: Orderedatenolol 50 mg oral tablet See Instructions, TAKE 2 TABLETS BY MOUTH EVERY DAY, # 180 tablet, Refills 1, Maintenance, Instructions Replace Required Details, Route to Pharmacy Electronically, [facility] 75437, 170.18, cm, 06/26/1910:19:00 EDT, Height Start Date: 09/26/20 Status: OrderedColace sodium 100 mg oral capsule 100 mg, 1, capsule, By Mouth, 2 times a day, PRN, with plenty of water, # 60 capsule, Refills 1, Tot. Refills 1, Maintenance, for constipation, 10/28/18 11:12:39 EST, Route to Pharmacy Electronically, 9 [id number], [facility]/pharmacy... Start Date: 10/28/18 Status: OrderedFREESTYLE 28G LANCETS FREESTYLE 28G LANCETS, See Instructions, # 100 Unknown, 11 Refills, USE TO TEST 4 TIMES DAILY Start Date: 07/31/21 Status: OrderedFreestyle Lite Lancets See Instructions, # [...] Date: 07/01/20 Status: OrderedglipiZIDE 5 mg oral tablet 1, tablet, By Mouth, 2 times a day, # 180 tablet, Refills 0, Route to Pharmacy Electronically, [facility] Start Date: 07/31/21 Status: OrderedhydrALAZINE 25 mg oral tablet 1, tablet, By Mouth, 2 times a day, # 60 tablet, Refills 0, Tot. Refills 0, Maintenance, 08/23/21 15:44:00 EST, Route to Pharmacy Electronically, [facility]/pharmacy #2070 Start Date: 08/23/21 Stop Date: 09/22/21 Status: OrderedLORazepam 0.5 mg oral tablet See Instructions, TAKE 1 TABLET BY MOUTH TWICE A DAY NEEDED FOR ANXIETY, # 42 tablet, 0 Refills, Soft Stop, 08/17/20 9:01:00 EST, [facility]/pharmacy #2070, 170.18, cm, 06/26/19 10:19:00 EDT, Height Start Date: 08/17/20 Status: Orderedlovastatin 20 mg oral tablet See Instructions, TAKE 1 TABLET BY MOUTH EVERY DAY WITH EVENING MEAL, # 30 tablet, 0 Refills, 05/08/21 7:36:00 EDT, [facility]/pharmacy #2070, 170.18, cm, 06/26/19 10:19:00 EDT, Height Start Date: 05/08/21 Status: OrderedNovoLOG FlexPen 100 units/mL injectable solution See Instructions, Subcutaneous Infusion 3 times a day before meals per Sliding Scale. No more than 24 units in a 24 hour period., # 3 mL, 11 Refills, Maintenance, 08/22/20 18:42:00 EST, [facility]/pharmacy #2070, 170.18, cm, 06/26/19 10:19:00 EDT, Height Start Date: 08/22/20 Status: Orderedolanzapine 20 mg oral tablet 1 tablet, By Mouth, Daily, # 90 tablet, 0 Refills, [facility] 54857, 170.18, cm, 06/26/19 10:19:00 EDT, Height Start Date: 05/09/21 Status: Orderedomeprazole 20 mg oral delayed release tablet 2 tablet = 40 mg, By Mouth, 2 times a day, Two tablets to equal 40 mg twice a day., # 120 tablet, 0 Refills, Maintenance, 08/17/20 9:28:00 EST, [facility] Tablet, Partial fill upon patient request if the prescription is for a schedule II opioid drug. Start Date: 08/17/20 Stop Date: 09/16/20 Status: OrderedPen [place], 30 G x 8 mm BD Ultra [...] WATER OR JUICE EVERY DAY NEEDED, [facility] Start Date: 06/26/19 Status: Orderedpolyethylene glycol [...] 225 mg total daily., # 90 capsule, 1 Refills, Soft Stop, 03/28/21 10:22:00 EDT, [facility], 170.18, cm, 06/26/19 10:19:00 EDT, Height Start Date: 03/28/21 Stop Date: 09/24/21 Status: Orderedvenlafaxine 75 mg oral capsule, extended release 1 capsule, By Mouth, Daily, # 90 capsule, 1 Refills, Maintenance, 03/14/21 17:37:00 EDT, [facility], 170.18, cm, 06/26/19 10:19:00 EDT, Height Start Date: 03/14/21 Status: Ordered Problem List Condition Effective Dates [...]
--- OUTSIDE RECORDS SUMMARY | 2022-06-29 10:00 | XMS_ITS | Continuity of Care Document ---
:1955 Author Organization [facility] Address [address] [place] [phone]- Care Team Providers Name Role Phone Cm ROSARIO, Kayy Kulkarni Primary Care Physician Encounter [facility] Date(s): 08/18/20 - 09/17/20 [facility] [address] [place], [place] [address] Allergies, Adverse Reactions, Alerts Substance Reaction Severity [...] tetanus-diphtheria toxoids (Td) 12/22/04 Given 1Result Comment: [facility] [id number] Note: vis Admin Note: Pt reports received while in hospital. [facility] Medications aero chamber aero chamber, with albuterol, By Mouth, Every 6 hours, PRN sob /wheeze, # 1 applicator, Refills 0, Tot. Refills 0, Maintenance, 11/08/10 11:23:49 Start Date: 11/08/10 Status: Orderedatenolol 50 mg oral tablet 100 mg, 2, tablet, By Mouth, Daily, # 180 tablet, Refills 1, Tot. Refills 1, Maintenance, 12/11/19 10:36:00 EDT, Route to Pharmacy Electronically, [facility]/pharmacy #0861, 170.18, cm, 06/26/19 10:19:00 EDT,Height Start Date: 12/11/19 Stop Date: 06/08/20 Status: OrderedColace sodium 100 mg oral capsule 100 mg, 1, capsule, By Mouth, 2 times a day, PRN, with plenty of water, # 60 capsule, Refills 1, Tot. Refills 1, Maintenance, for constipation, 10/28/18 11:12:39 EST, Route to Pharmacy Electronically, 9 [id number], [facility]/pharmacy... Start Date: 10/28/18 Status: OrderedFreestyle Lite [...] Maintenance, 08/17/20 8:59:00 EST, ER Tablet, [facility]/pharmacy #[id number], Partial fill upon patient request if the prescription is for a schedule II opioid drug., 170.18, cm, 06/26/19 10:19:00 EDT, Height Start Date: 08/17/20 Stop Date: 02/13/21 Status: OrderedhydrALAZINE 25 mg oral tablet 25 mg, 1, tablet, By Mouth, 2 times a day, # 180 tablet, Refills 1, Tot. Refills 1, Maintenance, 08/17/20 8:57:00 EST, [facility] 170.18, cm, 06/26/19 10:19:00 EDT, Height Start Date: 08/17/20 Stop Date: 02/13/21 Status: OrderedLORazepam 0.5 mg oral tablet See Instructions, TAKE 1 TABLET BY MOUTH TWICE A DAY NEEDED FOR ANXIETY, # 42 tablet, 0 Refills, Soft Stop, 08/17/20 9:01:00 EST, [facility] 170.18, cm, 06/26/19 10:19:00 EDT, Height Start Date: 08/17/20 Status: Orderedlovastatin 20 mg oral tablet 1 tablet = 20 mg, By Mouth, Daily, with evening meal, # 90 tablet, 1 Refills, Maintenance, 08/16/20 16:45:00 EST, Tablet, [facility] 170.18, cm, 06/26/19 10:19:00 EDT, Height Start Date: 08/16/20 Stop Date: 02/12/21 Status: OrderedNovoLOG FlexPen 100 units/mL injectable solution See Instructions, Subcutaneous Infusion 3 times a day before meals per Sliding Scale. No more than 24 units in a 24 hour period., # 3 mL, 11 Refills, Maintenance, 08/22/20 18:42:00 EST, [facility]/pharmacy #1, 170.18, cm, 06/26/19 10:19:00 EDT, Height Start Date: 08/22/20 Status: Orderedolanzapine 20 mg oral tablet See Instructions, TAKE 1 TABLET BY MOUTH EVERY DAY, # 90 tablet, 1 Refills, Maintenance, [facility] 62793, 170.18, cm, 06/26/19 10:19:00 EDT, Height Start [...] Date: 08/17/20 Stop Date: 09/16/20 Status: OrderedPen [place], 30 G x 8 mm BD Ultra [...]
--- OUTSIDE RECORDS SUMMARY | 2022-06-29 10:00 | XMS_ITS | Continuity of Care Document ---
:1955 Author Organization [email or web address] Address [address] [place] [address]- Care Team Providers Name Role Phone Kayy Pabon NP Primary Care Physician Encounter [facility] Date(s): 05/05/21 - 06/28/21 [email or web address] [address] [place] [phone]- Attending Physician: Kayy Pabon NP Allergies, Adverse [...] tetanus-diphtheria toxoids (Td) 12/22/04 Given 1Result Comment: [facility] [id number] Note: vis Admin Note: Pt reports received while in hospital. [facility] Medications aero chamber aero chamber, with albuterol, By Mouth, Every 6 hours, PRN sob /wheeze, # 1 applicator, Refills 0, Tot. Refills 0, Maintenance, 11/08/10 11:23:49 Start Date: 11/08/10 Status: Orderedatenolol 50 mg oral tablet 100 mg, 2, tablet, By Mouth, Daily, # 180 tablet, Refills 1, Tot. Refills 1, Maintenance, 12/11/19 10:36:00 EDT, Route to Pharmacy Electronically, [facility]/pharmacy #2071, 170.18, cm, 06/26/19 10:19:00 EDT,Height Start Date: 12/11/19 Stop Date: 06/08/20 Status: Orderedatenolol 50 mg oral tablet See Instructions, TAKE 2 TABLETS BY MOUTH EVERY DAY, # 180 tablet, Refills 1, Maintenance, Instructions Replace Required Details, Route to Pharmacy Electronically, [facility] 32412, 170.18, cm, 06/26/1910:19:00 EDT, Height Start Date: 09/26/20 Status: OrderedColace sodium 100 mg oral capsule 100 mg, 1, capsule, By Mouth, 2 times a day, PRN, with plenty of water, # 60 capsule, Refills 1, Tot. Refills 1, Maintenance, for constipation, 10/28/18 11:12:39 EST, Route to Pharmacy Electronically, 9 [id number], [facility]/pharmacy... Start Date: 10/28/18 Status: OrderedFreestyle Lite [...] 07/01/20 Status: OrderedglipiZIDE 5 mg oral tablet 5 mg, 1, tablet, By Mouth, 2 times a day, # 60 tablet, Refills 0, Tot. Refills 0, Maintenance, 05/08/21 7:39:00 EDT, [facility] Partial fill upon patient request if the prescription is for a schedule II opioi... Start Date: 05/08/21 Status: OrderedhydrALAZINE 25 mg oral tablet 1, tablet, By Mouth, 2 times a day, # 60 tablet, Refills 0, Tot. Refills 0, Maintenance, 06/04/21 20:23:00 EDT, [facility] 170.18, cm, 06/26/19 10:19:00 EDT, Height Start Date: 06/04/21 Stop Date: 07/04/21 Status: OrderedLORazepam 0.5 mg oral tablet See Instructions, TAKE 1 TABLET BY MOUTH TWICE A DAY NEEDED FOR ANXIETY, # 42 tablet, 0 Refills, Soft Stop, 08/17/20 9:01:00 EST, [facility]/pharmacy #2070, 170.18, cm, 06/26/19 10:19:00 EDT, Height Start Date: 08/17/20 Status: Orderedlovastatin 20 mg oral tablet See Instructions, TAKE 1 TABLET BY MOUTH EVERY DAY WITH EVENING MEAL, # 30 tablet, 0 Refills, 05/08/21 7:36:00 EDT, [facility]/pharmacy #2070, 170.18, cm, 06/26/19 10:19:00 EDT, Height Start Date: 05/08/21 Status: OrderedNovoLOG FlexPen 100 units/mL injectable solution See Instructions, Subcutaneous Infusion 3 times a day before meals per Sliding Scale. No more than 24 units in a 24 hour period., # 3 mL, 11 Refills, Maintenance, 08/22/20 18:42:00 EST, [facility]/pharmacy #2070, 170.18, cm, 06/26/19 10:19:00 EDT, Height Start Date: 08/22/20 Status: Orderedolanzapine 20 mg oral tablet 1 tablet, By Mouth, Daily, # 90 tablet, 0 Refills, [facility] [address]93, 170.18, cm, 06/26/19 10:19:00 EDT, Height Start [...] Date: 08/17/20 Stop Date: 09/16/20 Status: OrderedPen [place], 30 G x 8 mm BD Ultra [...] Refills, Maintenance, 03/14/21 17:37:00 EDT, [facility], 170.18, cm, 06/26/19 10:19:00 EDT, Height Start [...]
--- OUTSIDE RECORDS SUMMARY | 2022-06-29 10:01 | XMS_ITS | Continuity of Care Document ---
:1955 Author Organization [facility] Address [address] [place] [address]- Care Team Providers Name Role Phone Cm ROSARIO, Kayy Kulkarni Primary Care Physician Encounter [facility] Date(s): 09/22/20 - 10/22/20 [facility] [address] [place], [place] [address] Allergies, Adverse Reactions, Alerts Substance Reaction [...] tetanus-diphtheria toxoids (Td) 12/22/04 Given 1Result Comment: [facility] [id number] Note: vis Admin Note: Pt reports received while in hospital. [facility] Medications aero chamber aero chamber, with albuterol, By Mouth, Every 6 hours, PRN sob /wheeze, # 1 applicator, Refills 0, Tot. Refills 0, Maintenance, 11/08/10 11:23:49 Start Date: 11/08/10 Status: Orderedatenolol 50 mg oral tablet 100 mg, 2, tablet, By Mouth, Daily, # 180 tablet, Refills 1, Tot. Refills 1, Maintenance, 12/11/19 10:36:00 EDT, Route to Pharmacy Electronically, [facility]/pharmacy #[id number], 170.18, cm, 06/26/19 10:19:00 EDT,Height Start Date: 12/11/19 Stop Date: 06/08/20 Status: Orderedatenolol 50 mg oral tablet See Instructions, TAKE 2 TABLETS BY MOUTH EVERY DAY, # 180 tablet, Refills 1, Maintenance, Instructions Replace Required Details, Route to Pharmacy Electronically, [facility] STORE 30540, 170.18, cm, 06/26/1910:19:00 EDT, Height Start Date: 09/26/20 Status: OrderedColace sodium 100 mg oral capsule 100 mg, 1, capsule, By Mouth, 2 times a day, PRN, with plenty of water, # 60 capsule, Refills 1, Tot. Refills 1, Maintenance, for constipation, 10/28/18 11:12:39 EST, Route to Pharmacy Electronically, 9 [id number], [facility]/pharmacy... Start Date: 10/28/18 Status: OrderedFreestyle Lite [...] Refills, Maintenance, 08/17/20 8:59:00 EST, ER Tablet, [facility]/pharmacy #[id number], Partial fill upon patient request if the prescription is for a schedule II opioid drug., 170.18, cm, 06/26/19 10:19:00 EDT, Height Start Date: 08/17/20 Stop Date: 02/13/21 Status: OrderedhydrALAZINE 25 mg oral tablet 25 mg, 1, tablet, By Mouth, 2 times a day, # 180 tablet, Refills 1, Tot. Refills 1, Maintenance, 08/17/20 8:57:00 EST, Route to Pharmacy Electronically, [facility]/pharmacy #[id number], 170.18, cm, 06/26/19 10:19:00 EDT, Height Start Date: 08/17/20 Stop Date: 02/13/21 Status: OrderedLORazepam 0.5 mg oral tablet See Instructions, TAKE 1 TABLET BY MOUTH TWICE A DAY NEEDED FOR ANXIETY, # 42 tablet, 0 Refills, Soft Stop, 08/17/20 9:01:00 EST, [facility]/pharmacy #[id number], 170.18, cm, 06/26/19 10:19:00 EDT, Height Start Date: 08/17/20 Status: Orderedlovastatin 20 mg oral tablet 1 tablet = 20 mg, By Mouth, Daily, with evening meal, # 90 tablet, 1 Refills, Maintenance, 08/16/20 16:45:00 EST, Tablet, [facility]/pharmacy #[id number], 170.18, cm, 06/26/19 10:19:00 EDT, Height Start Date: 08/16/20 Stop Date: 02/12/21 Status: OrderedNovoLOG FlexPen 100 units/mL injectable solution See Instructions, Subcutaneous Infusion 3 times a day before meals per Sliding Scale. No more than 24 units in a 24 hour period., # 3 mL, 11 Refills, Maintenance, 08/22/20 18:42:00 EST, [facility]/pharmacy #[id number], 170.18, cm, 06/26/19 10:19:00 EDT, Height Start Date: 08/22/20 Status: Orderedolanzapine 20 mg oral tablet See Instructions, TAKE 1 TABLET BY MOUTH EVERY DAY, # 90 tablet, 1 Refills, Maintenance, [facility] STORE 44208, 170.18, cm, 06/26/19 10:19:00 EDT, Height Start [...] Date: 08/17/20 Stop Date: 09/16/20 Status: OrderedPen [place], 30 G x 8 mm BD Ultra [...] 1 Refills, Soft Stop, 09/23/20 10:04:00 EST, [facility]/pharmacy #[id number], 170.18, cm, 06/26/19 10:19:00 EDT, [...]
--- OUTSIDE RECORDS SUMMARY | 2022-06-29 10:01 | XMS_ITS | Continuity of Care Document ---
:1955 Author Organization [facility] Address [address] [place] [address]- Care Team Providers Name Role Phone Cm ROSARIO, Kayy M Primary Care Physician Encounter [facility] Date(s): 09/20/21 - 10/20/21 [facility] [address] [place] [address]- Attending Physician: Tramaine Quevedo Admitting Physician: Tramaine Quevedo Referring Physician: Admtr, Ar8 Allergies, Adverse Reactions, Alerts No Known Allergies [...] Given 1Result Comment: [facility] [id number] Comment: [facility] [id number] Note: vis Admin Note: Pt reports received [...] 09/15/21 12:58:00 EST, Route to Pharmacy Electronically, [facility]/pharmacy #[id number], Partial fill upon patient request ifthe prescription [...] 11:12:39 EST, Route to Pharmacy Electronically, 9 [id number], [facility]/pharmacy... Start Date: 10/28/18 Status: OrderedFREESTYLE 28G [...] tablet, Refills 0, Route to Pharmacy Electronically, [facility] STORE [id number] Start Date: 07/31/21 Status: OrderedglipiZIDE 5 mg oral tablet See Instructions, TAKE 1 TABLET BY MOUTH TWICE A DAY, # 180 tablet, Refills 1, Tot. Refills 1, Instructions Replace Required Details, Route to Pharmacy Electronically, [facility] STORE 25988 Start Date: 10/13/21 Status: OrderedhydrALAZINE 25 mg oral tablet 1, tablet, By Mouth, 2 times a day, for 30 days, # 60 tablet, Refills 5, Tot. Refills 5, Physician Stop 03/22/22 13:51:00 EDT, 09/23/21 13:51:00 EST, [id number] Start Date: 09/23/21 Stop Date: 03/22/22 Status: OrderedLORazepam 0.5 mg oral tablet See Instructions, TAKE 1 TABLET BY MOUTH TWICE A DAY NEEDED FOR ANXIETY, # 42 tablet, 0 Refills, Soft Stop, 08/17/20 9:01:00 EST, [facility] 170.18, cm, 06/26/19 10:19:00 EDT, Height Start Date: 08/17/20 Status: Orderedlovastatin 20 mg oral tablet See Instructions, TAKE 1 TABLET BY MOUTH EVERY DAY WITH EVENING MEAL, # 30 tablet, 0 Refills, 05/08/21 7:36:00 EDT, [facility]/pharmacy #2070, 170.18, cm, 06/26/19 10:19:00 EDT, Height Start Date: 05/08/21 Status: Orderedlovastatin 20 mg oral tablet See Instructions, TAKE 1 TABLET BY MOUTH EVERY DAY WITH EVENING MEAL, # 90 tablet, 1 Refills, [facility] STORE 80684 Start Date: 10/13/21 Status: OrderedNovoLOG FlexPen 100 units/mL injectable solution See Instructions, Subcutaneous Infusion 3 times a day before meals per Sliding Scale. No more than 24 units in a 24 hour period., # 3 mL, 11 Refills, Maintenance, 09/15/21 12:59:00 EST, [facility] Start Date: 09/15/21 Status: Orderedolanzapine 20 mg oral tablet 1 tablet, By Mouth, Daily, # 90 tablet, 1 Refills, 10/10/21 13:47:00 EST, [facility]/pharmacy #[id number] Start Date: 10/10/21 Status: OrderedPen [place], 30 G x 8 mm BD Ultra [...] 0 Refills, Soft Stop, 09/06/21 16:35:00 EST, [facility]/pharmacy #[id number] Start Date: 09/06/21 Stop Date: 12/05/21 Status: Orderedvenlafaxine 150 mg oral capsule, extended release See Instructions, TAKE 1 CAPSULE BY MOUTH EVERY DAY WITH 75MG CAP ONCE DAILY, # 90 capsule, 1 Refills, [facility] Start Date: 10/13/21 Status: Orderedvenlafaxine 75 mg oral capsule, extended release 1 capsule, By Mouth, Daily, # 90 capsule, 0 Refills, Maintenance, 09/06/21 16:36:00 EST, [facility]/pharmacy #[id number] Start Date: 09/06/21 Status: Ordered Problem [...]
--- OUTSIDE RECORDS SUMMARY | 2022-06-29 10:01 | XMS_ITS | Continuity of Care Document ---
:1955 Author Organization [facility] Address [address] [place] [address]- Care Team Providers Name Role Phone Cm ROSARIO, Kayy Kulkarni Primary Care Physician Encounter [facility] Date(s): 09/28/20 - 10/28/20 [facility] [address] [place], [place] [address] Allergies, Adverse Reactions, Alerts Substance Reaction [...] tetanus-diphtheria toxoids (Td) 12/22/04 Given 1Result Comment: [facility] [id number] Note: vis Admin Note: Pt reports received while in hospital. [facility] Medications aero chamber aero chamber, with albuterol, By Mouth, Every 6 hours, PRN sob /wheeze, # 1 applicator, Refills 0, Tot. Refills 0, Maintenance, 11/08/10 11:23:49 Start Date: 11/08/10 Status: Orderedatenolol 50 mg oral tablet 100 mg, 2, tablet, By Mouth, Daily, # 180 tablet, Refills 1, Tot. Refills 1, Maintenance, 12/11/19 10:36:00 EDT, Route to Pharmacy Electronically, [facility]/pharmacy #[id number], 170.18, cm, 06/26/19 10:19:00 EDT,Height Start Date: 12/11/19 Stop Date: 06/08/20 Status: Orderedatenolol 50 mg oral tablet See Instructions, TAKE 2 TABLETS BY MOUTH EVERY DAY, # 180 tablet, Refills 1, Maintenance, Instructions Replace Required Details, Route to Pharmacy Electronically, [facility] STORE 58978, 170.18, cm, 06/26/1910:19:00 EDT, Height Start Date: 09/26/20 Status: OrderedColace sodium 100 mg oral capsule 100 mg, 1, capsule, By Mouth, 2 times a day, PRN, with plenty of water, # 60 capsule, Refills 1, Tot. Refills 1, Maintenance, for constipation, 10/28/18 11:12:39 EST, Route to Pharmacy Electronically, 9 [id number], [facility]/pharmacy... Start Date: 10/28/18 Status: OrderedFreestyle Lite Lancets [...] Maintenance, 08/17/20 8:59:00 EST, ER Tablet, [facility]/pharmacy #207, Partial fill upon patient request if the prescription is for a schedule II opioid drug., 170.18, cm, 06/26/19 10:19:00 EDT, Height Start Date: 08/17/20 Stop Date: 02/13/21 Status: OrderedhydrALAZINE 25 mg oral tablet 25 mg, 1, tablet, By Mouth, 2 times a day, # 180 tablet, Refills 1, Tot. Refills 1, Maintenance, 08/17/20 8:57:00 EST, Route to Pharmacy Electronically, [facility]/pharmacy #[id number], 170.18, cm, 06/26/19 10:19:00 EDT, Height Start Date: 08/17/20 Stop Date: 02/13/21 Status: OrderedLORazepam 0.5 mg oral tablet See Instructions, TAKE 1 TABLET BY MOUTH TWICE A DAY NEEDED FOR ANXIETY, # 42 tablet, 0 Refills, Soft Stop, 08/17/20 9:01:00 EST, [facility]/pharmacy #[id number], 170.18, cm, 06/26/19 10:19:00 EDT, Height Start Date: 08/17/20 Status: Orderedlovastatin 20 mg oral tablet 1 tablet = 20 mg, By Mouth, Daily, with evening meal, # 90 tablet, 1 Refills, Maintenance, 08/16/20 16:45:00 EST, Tablet, [facility]/pharmacy #2070, 170.18, cm, 06/26/19 10:19:00 EDT, Height Start Date: 08/16/20 Stop Date: 02/12/21 Status: OrderedNovoLOG FlexPen 100 units/mL injectable solution See Instructions, Subcutaneous Infusion 3 times a day before meals per Sliding Scale. No more than 24 units in a 24 hour period., # 3 mL, 11 Refills, Maintenance, 08/22/20 18:42:00 EST, [facility]/pharmacy #[id number], 170.18, cm, 06/26/19 10:19:00 EDT, Height Start Date: 08/22/20 Status: Orderedolanzapine 20 mg oral tablet See Instructions, TAKE 1 TABLET BY MOUTH EVERY DAY, # 90 tablet, 1 Refills, Maintenance, [facility] STORE 94234, 170.18, cm, 06/26/19 10:19:00 EDT, Height Start [...] Date: 08/17/20 Stop Date: 09/16/20 Status: OrderedPen [place], 30 G x 8 mm BD [...] Refills, Soft Stop, 09/23/20 10:04:00 EST, [facility]/pharmacy #2071, 170.18, cm, 06/26/19 10:19:00 EDT, Height [...]
--- OUTSIDE RECORDS SUMMARY | 2022-06-29 10:01 | XMS_ITS | Continuity of Care Document ---
:1955 Author Organization [facility] Address [address] [place] [address]- Care Team Providers Name Role Phone Cm ROSARIO, Kayy Kulkarni Primary Care Physician Encounter [facility] Date(s): 02/08/21 - 03/10/21 [facility] [address] [place], [place] [address] Allergies, Adverse Reactions, Alerts Substance Reaction Severity [...] tetanus-diphtheria toxoids (Td) 12/22/04 Given 1Result Comment: [facility] [id number] Note: vis Admin Note: Pt reports received while in hospital. [facility] Medications aero chamber aero chamber, with albuterol, By Mouth, Every 6 hours, PRN sob /wheeze, # 1 applicator, Refills 0, Tot. Refills 0, Maintenance, 11/08/10 11:23:49 Start Date: 11/08/10 Status: Orderedatenolol 50 mg oral tablet 100 mg, 2, tablet, By Mouth, Daily, # 180 tablet, Refills 1, Tot. Refills 1, Maintenance, 12/11/19 10:36:00 EDT, Route to Pharmacy Electronically, [facility]/pharmacy #[id number], 170.18, cm, 06/26/19 10:19:00 EDT,Height Start Date: 12/11/19 Stop Date: 06/08/20 Status: Orderedatenolol 50 mg oral tablet See Instructions, TAKE 2 TABLETS BY MOUTH EVERY DAY, # 180 tablet, Refills 1, Maintenance, Instructions Replace Required Details, Route to Pharmacy Electronically, [facility] STORE 37234, 170.18, cm, 06/26/1910:19:00 EDT, Height Start Date: 09/26/20 Status: OrderedColace sodium 100 mg oral capsule 100 mg, 1, capsule, By Mouth, 2 times a day, PRN, with plenty of water, # 60 capsule, Refills 1, Tot. Refills 1, Maintenance, for constipation, 10/28/18 11:12:39 EST, Route to Pharmacy Electronically, 9 [id number], [facility]/pharmacy... Start Date: 10/28/18 Status: OrderedFreestyle [...] By Mouth, 2 times a day, # 90 tablet, Refills 1, Tot. Refills 1, Maintenance, 02/10/21 12:21:00 EDT, [id number] Partial fill upon patient request if the prescription is for a schedule II opio... Start Date: 02/10/21 Status: OrderedhydrALAZINE 25 mg oral tablet 25 mg, 1, tablet, By Mouth, 2 times a day, # 180 tablet, Refills 1, Tot. Refills 1, Maintenance, 08/17/20 8:57:00 EST, [facility]ically, [facility] 170.18, cm, 06/26/19 10:19:00 EDT, Height Start Date: 08/17/20 Stop Date: 02/13/21 Status: OrderedLORazepam 0.5 mg oral tablet See Instructions, TAKE 1 TABLET BY MOUTH TWICE A DAY NEEDED FOR ANXIETY, # 42 tablet, 0 Refills, Soft Stop, 08/17/20 9:01:00 EST, [facility] 170.18, cm, 06/26/19 10:19:00 EDT, Height Start Date: 08/17/20 Status: Orderedlovastatin 20 mg oral tablet 1 tablet = 20 mg, By Mouth, Daily, with evening meal, # 90 tablet, 1 Refills, Maintenance, 08/16/20 16:45:00 EST, Tablet, [facility] 170.18, cm, 06/26/19 10:19:00 EDT, Height Start Date: 08/16/20 Stop Date: 02/12/21 Status: OrderedNovoLOG FlexPen 100 units/mL injectable solution See Instructions, Subcutaneous Infusion 3 times a day before meals per Sliding Scale. No more than 24 units in a 24 hour period., # 3 mL, 11 Refills, Maintenance, 08/22/20 18:42:00 EST, [facility]/pharmacy #2070, 170.18, cm, 06/26/19 10:19:00 EDT, Height Start Date: 08/22/20 Status: Orderedolanzapine 20 mg oral tablet See Instructions, TAKE 1 TABLET BY MOUTH EVERY DAY, # 90 tablet, 1 Refills, Maintenance, [facility] STORE 09395, 170.18, cm, 06/26/19 10:19:00 EDT, Height Start [...] Date: 08/17/20 Stop Date: 09/16/20 Status: OrderedPen [place], 30 G x 8 mm BD Ultra [...] 1 Refills, Soft Stop, 09/23/20 10:04:00 EST, [facility]/pharmacy #[id number], 170.18, cm, 06/26/19 10:19:00 [...]
--- OUTSIDE RECORDS SUMMARY | 2022-06-29 10:01 | XMS_ITS | Continuity of Care Document ---
:1955 Author Organization [email or web address] Address [address] [place] [address]- Care Team Providers Name Role Phone Cm ROSARIO, Kayy Kulkarni Primary Care Physician Encounter [facility] Date(s): 08/23/20 - 09/22/20 [email or web address] [address] [place], [place] [address] Allergies, Adverse Reactions, Alerts Substance Reaction [...] tetanus-diphtheria toxoids (Td) 12/22/04 Given 1Result Comment: [facility] [id number] Note: vis Admin Note: Pt reports received [...] EDT, Route to Pharmacy Electronically, [facility]/pharmacy #[id number], 170.18, cm, 06/26/19 10:19:00 EDT,Height Start Date: 12/11/19 Stop Date: 06/08/20 Status: OrderedColace sodium 100 mg oral capsule 100 mg, 1, capsule, By Mouth, 2 times a day, PRN, with plenty of water, # 60 capsule, Refills 1, Tot. Refills 1, Maintenance, for constipation, 10/28/18 11:12:39 EST, Route to Pharmacy Electronically, 9 [id number], [facility]/pharmacy... Start Date: 10/28/18 Status: OrderedFreestyle [...] 08/17/20 8:59:00 EST, ER Tablet, [facility]/pharmacy #[id number], Partial fill upon patient request if the prescription is for a schedule II opioid drug., 170.18, cm, 06/26/19 10:19:00 EDT, Height Start Date: 08/17/20 Stop Date: 02/13/21 Status: OrderedhydrALAZINE 25 mg oral tablet 25 mg, 1, tablet, By Mouth, 2 times a day, # 180 tablet, Refills 1, Tot. Refills 1, Maintenance, 08/17/20 8:57:00 EST, [id number] 170.18, cm, 06/26/19 10:19:00 EDT, Height Start Date: 08/17/20 Stop Date: 02/13/21 Status: OrderedLORazepam 0.5 mg oral tablet See Instructions, TAKE 1 TABLET BY MOUTH TWICE A DAY NEEDED FOR ANXIETY, # 42 tablet, 0 Refills, Soft Stop, 08/17/20 9:01:00 EST, [facility] 170.18, cm, 06/26/19 10:19:00 EDT, Height Start Date: 08/17/20 Status: Orderedlovastatin 20 mg oral tablet 1 tablet = 20 mg, By Mouth, Daily, with evening meal, # 90 tablet, 1 Refills, Maintenance, 08/16/20 16:45:00 EST, Tablet, [facility] 170.18, cm, 06/26/19 10:19:00 EDT, Height Start Date: 08/16/20 Stop Date: 02/12/21 Status: OrderedNovoLOG FlexPen 100 units/mL injectable solution See Instructions, Subcutaneous Infusion 3 times a day before meals per Sliding Scale. No more than 24 units in a 24 hour period., # 3 mL, 11 Refills, Maintenance, 08/22/20 18:42:00 EST, [facility]/pharmacy #1, 170.18, cm, 06/26/19 10:19:00 EDT, Height Start Date: 08/22/20 Status: Orderedolanzapine 20 mg oral tablet See Instructions, TAKE 1 TABLET BY MOUTH EVERY DAY, # 90 tablet, 1 Refills, Maintenance, [facility] STORE 24340, 170.18, cm, 06/26/19 10:19:00 EDT, Height Start [...] Date: 08/17/20 Stop Date: 09/16/20 Status: OrderedPen [place], 30 G x 8 mm BD Ultra [...]
--- OUTSIDE RECORDS SUMMARY | 2022-06-29 10:01 | XMS_ITS | Continuity of Care Document ---
:1955 Author Organization [facility] Address [address] [place] [address]- Care Team Providers Name Role Phone Cm ROSARIO, Kayy Kulkarni Primary Care Physician Encounter [facility] Date(s): 03/28/21 - 04/27/21 [facility] [address] [place] [address] [place] Allergies, Adverse Reactions, Alerts Substance Reaction Severity [...] toxoids (Td) 12/22/04 Given 1Result Comment: [facility] [id number] Note: vis Admin Note: Pt reports received [...] 12/11/19 10:36:00 EDT, Route to Pharmacy Electronically, [facility]/pharmacy #8391, 170.18, cm, 06/26/19 10:19:00 EDT,Height Start Date: 12/11/19 Stop Date: 06/08/20 Status: Orderedatenolol 50 mg oral tablet See Instructions, TAKE 2 TABLETS BY MOUTH EVERY DAY, # 180 tablet, Refills 1, Maintenance, Instructions Replace Required Details, Route to Pharmacy Electronically, [facility] STORE 12453, 170.18, cm, 06/26/1910:19:00 EDT, Height Start Date: 09/26/20 Status: OrderedColace sodium 100 mg oral capsule 100 mg, 1, capsule, By Mouth, 2 times a day, PRN, with plenty of water, # 60 capsule, Refills 1, Tot. Refills 1, Maintenance, for constipation, 10/28/18 11:12:39 EST, Route to Pharmacy Electronically, 9 [id number], [facility]/pharmacy... Start Date: 10/28/18 Status: OrderedFreestyle [...] 02/10/21 12:21:00 EDT, [id number] Partial fill upon patient request if the prescription is for a schedule II opio... Start Date: 02/10/21 Status: OrderedhydrALAZINE 25 mg oral tablet 1, tablet, By Mouth, 2 times a day, # 60 tablet, Refills 0, Tot. Refills 0, Maintenance, 03/29/21 15:18:00 EDT, [facility], [facility] 170.18, cm, 06/26/19 10:19:00 EDT, Height Start Date: 03/29/21 Stop Date: 04/28/21 Status: OrderedLORazepam 0.5 mg oral tablet See Instructions, TAKE 1 TABLET BY MOUTH TWICE A DAY NEEDED FOR ANXIETY, # 42 tablet, 0 Refills, Soft Stop, 08/17/20 9:01:00 EST, [facility]/pharmacy #2070, 170.18, cm, 06/26/19 10:19:00 EDT, Height Start Date: 08/17/20 Status: Orderedlovastatin 20 mg oral tablet 1 tablet = 20 mg, By Mouth, Daily, with evening meal, # 90 tablet, 1 Refills, Maintenance, 08/16/20 16:45:00 EST, Tablet, [facility]/pharmacy #2070, 170.18, cm, 06/26/19 10:19:00 EDT, Height Start Date: 08/16/20 Stop Date: 02/12/21 Status: OrderedNovoLOG FlexPen 100 units/mL injectable solution See Instructions, Subcutaneous Infusion 3 times a day before meals per Sliding Scale. No more than 24 units in a 24 hour period., # 3 mL, 11 Refills, Maintenance, 08/22/20 18:42:00 EST, [facility]/pharmacy #[id number], 170.18, cm, 06/26/19 10:19:00 EDT, Height Start Date: 08/22/20 Status: Orderedolanzapine 20 mg oral tablet See Instructions, TAKE 1 TABLET BY MOUTH EVERY DAY, # 90 tablet, 1 Refills, Maintenance, [facility] STORE 20963, 170.18, cm, 06/26/19 10:19:00 EDT, Height Start [...] Date: 08/17/20 Stop Date: 09/16/20 Status: OrderedPen [place], 30 G x 8 mm BD Ultra [...] Refills, Maintenance, 03/14/21 17:37:00 EDT, [facility], 170.18, cm, 06/26/19 10:19:00 EDT, Height Start [...]
--- OUTSIDE RECORDS SUMMARY | 2022-06-29 10:01 | XMS_ITS | Continuity of Care Document ---
:1955 Author Organization [facility] Address [address] [place] [address]- Care Team Providers Name Role Phone Cm ROSARIO, Kayy Kulkarni Primary Care Physician Encounter [facility] Date(s): 07/06/20 - 08/05/20 [facility] [address] [place], [place] [address] Attending Physician: AdmTramaine curtis Admitting Physician: AdmtrTramaine Referring Physician: Admtr, Ar8 Allergies, Adverse Reactions, Alerts Substance Reaction Severity [...] Given 1Result Comment: [facility] [id number] Note: vis Admin Note: Pt reports received while in hospital. [facility] Medications aero chamber aero chamber, with albuterol, By Mouth, Every 6 hours, PRN sob /wheeze, # 1 applicator, Refills 0, Tot. Refills 0, Maintenance, 11/08/10 11:23:49 Start Date: 11/08/10 Status: Orderedatenolol 50 mg oral tablet 100 mg, 2, tablet, By Mouth, Daily, # 180 tablet, Refills 1, Tot. Refills 1, Maintenance, 12/11/19 10:36:00 EDT, Route to Pharmacy Electronically, [facility]/pharmacy #[id number], 170.18, cm, 06/26/19 10:19:00 EDT,Height Start Date: 12/11/19 Stop Date: 06/08/20 Status: Orderedclopidogrel 75 mg oral tablet See Instructions, TAKE 1 TABLET BY MOUTH EVERY DAY, # 90 tablet, Refills 1, Maintenance, Instructions Replace Required Details, Route to Pharmacy Electronically, [facility] STORE 93054, 170.18, cm, 06/26/19 10:19:00 EDT, Height Start Date: 03/14/20 Status: OrderedColace sodium 100 mg oral capsule 100 mg, 1, capsule, By Mouth, 2 times a day, PRN, with plenty of water, # 60 capsule, Refills 1, Tot. Refills 1, Maintenance, for constipation, 10/28/18 11:12:39 EST, Route to Pharmacy Electronically, 9 [id number], [facility]/pharmacy... Start Date: 10/28/18 Status: [...] 0 Refills, Soft Stop, 02/04/20 17:13:00 EDT, [facility]/pharmacy #2071, 170.18, cm, 06/26/19 10:19:00 EDT, Height Start Date: 02/04/20 Status: OrderedglipiZIDE 10 mg oral tablet See Instructions, TAKE 1 TABLET BY MOUTH TWICE A DAY, # 180 tablet, 1 Refills, Maintenance, [facility], 170.18, cm, 06/26/19 10:19:00 EDT, Height Start Date: 05/10/20 Status: OrderedhydrALAZINE 25 mg oral tablet 25 mg, 1, tablet, By Mouth, 2 times a day, # 180 tablet, Refills 1, Tot. Refills 1, Maintenance, 01/15/20 16:34:00 EDT, Route to Pharmacy Electronically, [facility]/pharmacy #1, 170.18, cm, 06/26/19 10:19:00 EDT, Height Start Date: 01/15/20 Stop Date: 07/13/20 Status: OrderedLORazepam 0.5 mg oral tablet See Instructions, TAKE 1 TABLET BY MOUTH TWICE A DAY NEEDED FOR ANXIETY, # 42 tablet, 0 Refills, Soft Stop, 04/30/20 15:23:00 EDT, [facility]/pharmacy #2071, 170.18, cm, 06/26/19 10:19:00 EDT, Height Start Date: 04/30/20 Status: Orderedlovastatin 20 mg oral tablet 1 tablet = 20 mg, By Mouth, Daily, with evening meal, # 90 tablet, 1 Refills, Maintenance, 12/16/19 10:39:00 EDT, Tablet, [facility]/pharmacy #1, 170.18, cm, 06/26/19 10:19:00 EDT, Height Start Date: 12/16/19 Stop Date: 06/13/20 Status: Orderedolanzapine 20 mg oral tablet See Instructions, TAKE 1 TABLET BY MOUTH EVERY DAY, # 90 tablet, 1 Refills, Maintenance, [facility], 170.18, cm, 06/26/19 10:19:00 EDT, Height Start Date: 05/05/20 Status: Orderedolanzapine 20 mg oral tablet 1 tablet = 20 mg, By Mouth, Daily, # 90 tablet, 1 Refills, Maintenance, 12/11/19 10:37:00 EDT, [facility]/pharmacy #2070, 170.18, cm, 06/26/19 10:19:00 EDT, Height Start Date: 12/11/19 Stop Date: 06/08/20 Status: OrderedPlavix 75 mg oral tablet 75 mg, 1, tablet, By Mouth, Daily, # 90 tablet, Refills 1, Tot. Refills 1, Maintenance, 06/26/19 10:44:35 EDT, Route to Pharmacy Electronically, [id number], [facility]/pharmacy #2070 Start Date: 06/26/19 Stop Date: 12/23/19 Status: Orderedpolyethylene glycol 3350 oral powder for reconstitution See Instructions, # 255 Gm, TAKE 17 GRAMS DISSOLVED IN WATER OR JUICE EVERY DAY NEEDED, [facility]/pharmacy #2070 Start Date: 06/26/19 Status: Orderedpolyethylene glycol [...] 12/16/19 15:44:00 EDT, Route to Pharmacy Electronically, [facility]/pharmacy #2070, 170.18, cm, 06/26/19 10:19:00 EDT, Height Start Date: 12/16/19 Stop Date: 06/13/20 Status: Orderedvenlafaxine 150 mg oral capsule, extended release 1 capsule = 150 mg, By Mouth, Daily, # 90 capsule, 1 Refills, Soft Stop, 12/16/19 15:46:00 EDT, [facility]/pharmacy #2071, 170.18, cm, 06/26/19 10:19:00 EDT, Height Start Date: 12/16/19 Stop Date: 06/13/20 Status: Orderedvenlafaxine 150 mg oral capsule, extended release 150 mg, 1, capsule, By Mouth, Daily, with food, # 90 capsule, Refills 1, Tot. Refills 1, Maintenance, 10/28/18 11:12:13 EST, Route to Pharmacy Electronically, [id number], [facility]/pharmacy #[id number] Start Date: 10/28/18 Stop Date: 04/26/19 Status: Orderedvenlafaxine 75 mg oral capsule, extended release 1 capsule = 75 mg, By Mouth, Daily, # 90 capsule, 1 Refills, Soft Stop, 01/01/20 12:46:00 EDT, [facility]/pharmacy #2071, 170.18, cm, 06/26/19 [...]
--- OUTSIDE RECORDS SUMMARY | 2022-06-29 10:01 | XMS_ITS | Continuity of Care Document ---
:1955 Author Organization [facility] Address [address] [place] [address]- Care Team Providers Name Role Phone Cm ROSARIO, Kayy Kulkarni Primary Care Physician Encounter [facility] [id number] Date(s): 08/22/20 - 09/21/20 [facility] [address], [place] [address] Attending Physician: Admtr, Mikael8 Admitting Physician: AdmtrMikael8 Referring Physician: Admtr, Ar8 Allergies, Adverse Reactions, [...] 12/22/04 Given 1Result Comment: [facility] [id number] Note: vis Admin Note: Pt reports received while in hospital. [facility] Medications aero chamber aero chamber, with albuterol, By Mouth, Every 6 hours, PRN sob /wheeze, # 1 applicator, Refills 0, Tot. Refills 0, Maintenance, 11/08/10 11:23:49 Start Date: 11/08/10 Status: Orderedatenolol 50 mg oral tablet 100 mg, 2, tablet, By Mouth, Daily, # 180 tablet, Refills 1, Tot. Refills 1, Maintenance, 12/11/19 10:36:00 EDT, Route to Pharmacy Electronically, [facility]/pharmacy #2071, 170.18, cm, 06/26/19 10:19:00 EDT,Height Start Date: 12/11/19 Stop Date: 06/08/20 Status: OrderedColace sodium 100 mg oral capsule 100 mg, 1, capsule, By Mouth, 2 times a day, PRN, with plenty of water, # 60 capsule, Refills 1, Tot. Refills 1, Maintenance, for constipation, 10/28/18 11:12:39 EST, Route to Pharmacy Electronically, 9 [id number], [facility]/pharmacy... Start Date: 10/28/18 Status: OrderedFreestyle Lite [...] Maintenance, 08/17/20 8:59:00 EST, ER Tablet, [facility]/pharmacy #[id number], Partial fill upon patient request if the prescription is for a schedule II opioid drug., 170.18, cm, 06/26/19 10:19:00 EDT, Height Start Date: 08/17/20 Stop Date: 02/13/21 Status: OrderedhydrALAZINE 25 mg oral tablet 25 mg, 1, tablet, By Mouth, 2 times a day, # 180 tablet, Refills 1, Tot. Refills 1, Maintenance, 08/17/20 8:57:00 EST, [facility], cm, 06/26/19 10:19:00 EDT, Height Start Date: 08/17/20 Stop Date: 02/13/21 Status: OrderedLORazepam 0.5 mg oral tablet See Instructions, TAKE 1 TABLET BY MOUTH TWICE A DAY NEEDED FOR ANXIETY, # 42 tablet, 0 Refills, Soft Stop, 08/17/20 9:01:00 EST, [facility]/pharmacy #1, 170.18, cm, 06/26/19 10:19:00 EDT, Height Start Date: 08/17/20 Status: Orderedlovastatin 20 mg oral tablet 1 tablet = 20 mg, By Mouth, Daily, with evening meal, # 90 tablet, 1 Refills, Maintenance, 08/16/20 16:45:00 EST, Tablet, [facility]/pharmacy #2070, 170.18, cm, 06/26/19 10:19:00 EDT, Height Start Date: 08/16/20 Stop Date: 02/12/21 Status: OrderedNovoLOG FlexPen 100 units/mL injectable solution See Instructions, Subcutaneous Infusion 3 times a day before meals per Sliding Scale. No more than 24 units in a 24 hour period., # 3 mL, 11 Refills, Maintenance, 08/22/20 18:42:00 EST, [facility]/pharmacy #2070, 170.18, cm, 06/26/19 10:19:00 EDT, Height Start Date: 08/22/20 Status: Orderedolanzapine 20 mg oral tablet See Instructions, TAKE 1 TABLET BY MOUTH EVERY DAY, # 90 tablet, 1 Refills, Maintenance, [facility] STORE 40050, 170.18, cm, 06/26/19 10:19:00 EDT, Height Start [...] Date: 08/17/20 Stop Date: 09/16/20 Status: OrderedPen [place], 30 G x 8 mm BD Ultra [...] IN WATER OR JUICE EVERY DAY NEEDED, [facility]/pharmacy #2071 Start Date: 06/26/19 Status: Orderedpolyethylene glycol [...] Refills, Soft Stop, 01/01/20 12:46:00 EDT, [facility], 170.18, cm, 06/26/19 10:19:00 EDT, [...]
--- OUTSIDE RECORDS SUMMARY | 2022-06-29 10:01 | XMS_ITS | Continuity of Care Document ---
:1955 Author Organization [facility] Address [address] [place] [address]- Care Team Providers Name Role Phone Cm ROSARIO, Kayy Kulkarni Primary Care Physician Encounter [facility] Date(s): 09/29/20 - 10/29/20 [facility] [address], [place] [address] Attending Physician: Admtr, [id number] Admitting Physician: Admtr, [id number] Referring Physician: Admtr, Ar8 Allergies, Adverse Reactions, [...] toxoids (Td) 12/22/04 Given 1Result Comment: [facility] [id number] Note: vis Admin Note: Pt reports received while in hospital. [facility] Medications aero chamber aero chamber, with albuterol, By Mouth, Every 6 hours, PRN sob /wheeze, # 1 applicator, Refills 0, Tot. Refills 0, Maintenance, 11/08/10 11:23:49 Start Date: 11/08/10 Status: Orderedatenolol 50 mg oral tablet 100 mg, 2, tablet, By Mouth, Daily, # 180 tablet, Refills 1, Tot. Refills 1, Maintenance, 12/11/19 10:36:00 EDT, Route to Pharmacy Electronically, [facility]/pharmacy #2071, 170.18, cm, 06/26/19 10:19:00 EDT,Height Start Date: 12/11/19 Stop Date: 06/08/20 Status: Orderedatenolol 50 mg oral tablet See Instructions, TAKE 2 TABLETS BY MOUTH EVERY DAY, # 180 tablet, Refills 1, Maintenance, Instructions Replace Required Details, Route to Pharmacy Electronically, [facility] STORE 75270, 170.18, cm, 06/26/1910:19:00 EDT, Height Start Date: 09/26/20 Status: OrderedColace sodium 100 mg oral capsule 100 mg, 1, capsule, By Mouth, 2 times a day, PRN, with plenty of water, # 60 capsule, Refills 1, Tot. Refills 1, Maintenance, for constipation, 10/28/18 11:12:39 EST, Route to Pharmacy Electronically, 9 [id number], [facility]/pharmacy... Start Date: 10/28/18 Status: OrderedFreestyle Lite [...] Refills, Maintenance, 08/17/20 8:59:00 EST, ER Tablet, [facility]/pharmacy #207, Partial fill upon patient request if the prescription is for a schedule II opioid drug., 170.18, cm, 06/26/19 10:19:00 EDT, Height Start Date: 08/17/20 Stop Date: 02/13/21 Status: OrderedhydrALAZINE 25 mg oral tablet 25 mg, 1, tablet, By Mouth, 2 times a day, # 180 tablet, Refills 1, Tot. Refills 1, Maintenance, 08/17/20 8:57:00 EST, Route to Pharmacy Electronically, [facility]/pharmacy #2070, 170.18, cm, 06/26/19 10:19:00 EDT, Height Start Date: 08/17/20 Stop Date: 02/13/21 Status: OrderedLORazepam 0.5 mg oral tablet See Instructions, TAKE 1 TABLET BY MOUTH TWICE A DAY NEEDED FOR ANXIETY, # 42 tablet, 0 Refills, Soft Stop, 08/17/20 9:01:00 EST, [facility]/pharmacy #2070, 170.18, cm, 06/26/19 10:19:00 EDT, Height Start Date: 08/17/20 Status: Orderedlovastatin 20 mg oral tablet 1 tablet = 20 mg, By Mouth, Daily, with evening meal, # 90 tablet, 1 Refills, Maintenance, 08/16/20 16:45:00 EST, Tablet, [facility]/pharmacy #2070, 170.18, cm, 06/26/19 10:19:00 EDT, Height Start Date: 08/16/20 Stop Date: 02/12/21 Status: OrderedNovoLOG FlexPen 100 units/mL injectable solution See Instructions, Subcutaneous Infusion 3 times a day before meals per Sliding Scale. No more than 24 units in a 24 hour period., # 3 mL, 11 Refills, Maintenance, 08/22/20 18:42:00 EST, [facility]/pharmacy #2070, 170.18, cm, 06/26/19 10:19:00 EDT, Height Start Date: 08/22/20 Status: Orderedolanzapine 20 mg oral tablet See Instructions, TAKE 1 TABLET BY MOUTH EVERY DAY, # 90 tablet, 1 Refills, Maintenance, [facility], 170.18, cm, 06/26/19 10:19:00 EDT, Height Start [...] Date: 08/17/20 Stop Date: 09/16/20 Status: OrderedPen [place], 30 G x 8 mm BD Ultra [...] Refills, Soft Stop, 09/30/20 10:51:00 EST, [facility], 170.18, cm, 06/26/19 10:19:00 EDT, Height Start Date: 09/30/20 Stop Date: 03/29/21 Status: Orderedvenlafaxine 75 mg oral capsule, extended release 1 capsule = 75 mg, By Mouth, Daily, # 90 capsule, 1 Refills, Soft Stop, 09/23/20 10:04:00 EST, [facility], 170.18, cm, 06/26/19 10:19:00 [...]
--- OUTSIDE RECORDS SUMMARY | 2022-06-29 10:01 | XMS_ITS | Continuity of Care Document ---
:1955 Author Organization [facility] [employer] [facility] Address [address] [place] [id number]- Care Team Providers Name Role Phone Cm ROSARIO, Kayy Kulkarni Primary Care Physician Encounter [facility] Date(s): 08/18/20 - 09/21/20 [facility] [employer] [facility] [address] [place] [id number] Attending [...] 1Result Comment: [facility] [id number] Note: vis Admin Note: Pt reports received [...] 12/11/19 10:36:00 EDT, Route to Pharmacy Electronically, [facility]/pharmacy #2071, 170.18, cm, 06/26/19 10:19:00 EDT,Height Start Date: 12/11/19 Stop Date: 06/08/20 Status: OrderedColace sodium 100 mg oral capsule 100 mg, 1, capsule, By Mouth, 2 times a day, PRN, with plenty of water, # 60 capsule, Refills 1, Tot. Refills 1, Maintenance, for constipation, 10/28/18 11:12:39 EST, Route to Pharmacy Electronically, 9 [id number], [facility]/pharmacy... Start Date: 10/28/18 Status: OrderedFreestyle Lite Lancets [...] Refills, Maintenance, 08/17/20 8:59:00 EST, ER Tablet, [facility]/pharmacy #2071, Partial fill upon patient request if the prescription is for a schedule II opioid drug., 170.18, cm, 06/26/19 10:19:00 EDT, Height Start Date: 08/17/20 Stop Date: 02/13/21 Status: OrderedhydrALAZINE 25 mg oral tablet 25 mg, 1, tablet, By Mouth, 2 times a day, # 180 tablet, Refills 1, Tot. Refills 1, Maintenance, 08/17/20 8:57:00 EST, [facility] 170.18, cm, 06/26/19 10:19:00 EDT, Height Start Date: 08/17/20 Stop Date: 02/13/21 Status: OrderedLORazepam 0.5 mg oral tablet See Instructions, TAKE 1 TABLET BY MOUTH TWICE A DAY NEEDED FOR ANXIETY, # 42 tablet, 0 Refills, Soft Stop, 08/17/20 9:01:00 EST, [facility] 170.18, cm, 06/26/19 10:19:00 EDT, Height Start Date: 08/17/20 Status: Orderedlovastatin 20 mg oral tablet 1 tablet = 20 mg, By Mouth, Daily, with evening meal, # 90 tablet, 1 Refills, Maintenance, 08/16/20 16:45:00 EST, Tablet, [facility] 170.18, cm, 06/26/19 10:19:00 EDT, Height Start Date: 08/16/20 Stop Date: 02/12/21 Status: OrderedNovoLOG FlexPen 100 units/mL injectable solution See Instructions, Subcutaneous Infusion 3 times a day before meals per Sliding Scale. No more than 24 units in a 24 hour period., # 3 mL, 11 Refills, Maintenance, 08/22/20 18:42:00 EST, [facility]/pharmacy #1, 170.18, cm, 06/26/19 10:19:00 EDT, Height Start Date: 08/22/20 Status: Orderedolanzapine 20 mg oral tablet See Instructions, TAKE 1 TABLET BY MOUTH EVERY DAY, # 90 tablet, 1 Refills, Maintenance, [facility] STORE 51839, 170.18, cm, 06/26/19 10:19:00 EDT, Height Start [...] Date: 08/17/20 Stop Date: 09/16/20 Status: OrderedPen [place], 30 G x 8 mm BD Ultra [...] IN WATER OR JUICE EVERY DAY NEEDED, [facility]/pharmacy #207 Start Date: 06/26/19 Status: Orderedpolyethylene glycol [...]
--- OUTSIDE RECORDS SUMMARY | 2022-06-29 10:01 | XMS_ITS | Continuity of Care Document ---
:1955 Author Organization [facility] [email or web address] [facility] Address [address] [place] [address]- Care Team Providers Name Role Phone Cm ROSARIO, Kayy Kulkarni Primary Care Physician Encounter [facility] Date(s): 03/14/20 - 04/13/20 [facility] [email or web address] [facility] [address] [place] [address]- Allergies, Adverse Reactions, Alerts Substance Reaction Severity [...] Comment: [facility] [id number] Note: vis Admin Note: Pt reports received while in hospital. [facility] Medications aero chamber aero chamber, with albuterol, By Mouth, Every 6 hours, PRN sob /wheeze, # 1 applicator, Refills 0, Tot. Refills 0, Maintenance, 11/08/10 11:23:49 Start Date: 11/08/10 Status: Orderedatenolol 50 mg oral tablet 100 mg, 2, tablet, By Mouth, Daily, # 180 tablet, Refills 1, Tot. Refills 1, Maintenance, 12/11/19 10:36:00 EDT, Route to Pharmacy Electronically, [facility]/pharmacy #2071, 170.18, cm, 06/26/19 10:19:00 EDT,Height Start Date: 12/11/19 Stop Date: 06/08/20 Status: Orderedclopidogrel 75 mg oral tablet See Instructions, TAKE 1 TABLET BY MOUTH EVERY DAY, # 90 tablet, Refills 1, Maintenance, Instructions Replace Required Details, Route to Pharmacy Electronically, [facility] STORE 11920, 170.18, cm, 06/26/19 10:19:00 EDT, Height Start Date: 03/14/20 Status: OrderedColace sodium 100 mg oral capsule 100 mg, 1, capsule, By Mouth, 2 times a day, PRN, with plenty of water, # 60 capsule, Refills 1, Tot. Refills 1, Maintenance, for constipation, 10/28/18 11:12:39 EST, Route to Pharmacy Electronically, 9 [id number], [facility]/pharmacy... Start Date: 10/28/18 Status: OrderedFreestyle Lite [...] 0 Refills, Soft Stop, 02/04/20 17:13:00 EDT, [facility]/pharmacy #2071, 170.18, cm, 06/26/19 10:19:00 EDT, Height Start Date: 02/04/20 Status: OrderedhydrALAZINE 25 mg oral tablet 25 mg, 1, tablet, By Mouth, 2 times a day, # 180 tablet, Refills 1, Tot. Refills 1, Maintenance, 01/15/20 16:34:00 EDT, Route to Pharmacy Electronically, [facility]/pharmacy #2070, 170.18, cm, 06/26/19 10:19:00 EDT, Height Start Date: 01/15/20 Stop Date: 07/13/20 Status: OrderedLORazepam 0.5 mg oral tablet See Instructions, TAKE 1 TABLET BY MOUTH TWICE A DAY NEEDED FOR ANXIETY, # 42 tablet, 0 Refills, Soft Stop, 12/11/19 10:27:00 EDT, [facility]/pharmacy #1, 170.18, cm, 06/26/19 10:19:00 EDT, Height Start Date: 12/11/19 Status: Orderedlovastatin 20 mg oral tablet 1 tablet = 20 mg, By Mouth, Daily, with evening meal, # 90 tablet, 1 Refills, Maintenance, 12/16/19 10:39:00 EDT, Tablet, [facility]/pharmacy #2070, 170.18, cm, 06/26/19 10:19:00 EDT, Height Start Date: 12/16/19 Stop Date: 06/13/20 Status: Orderedolanzapine 20 mg oral tablet 1 tablet = 20 mg, By Mouth, Daily, # 90 tablet, 1 Refills, Maintenance, 12/11/19 10:37:00 EDT, [facility]/pharmacy #2070, 170.18, cm, 06/26/19 10:19:00 EDT, Height Start Date: 12/11/19 Stop Date: 06/08/20 Status: OrderedPlavix 75 mg oral tablet 75 mg, 1, tablet, By Mouth, Daily, # 90 tablet, Refills 1, Tot. Refills 1, Maintenance, 06/26/19 10:44:35 EDT, Route to Pharmacy Electronically, [id number], [facility]/pharmacy #2070 Start Date: 06/26/19 Stop Date: [...] IN WATER OR JUICE EVERY DAY NEEDED, [facility]/pharmacy #2071 Start Date: 06/26/19 Status: Orderedsenna - oral tablet 1 tablet, By Mouth, Daily at bedtime, Per med rec 03/19/16 with the pt's . KL, 0 Refills, Maintenance, 03/19/16 14:24:28 Start Date: 03/19/16 Status: Orderedspironolactone 25 mg oral tablet 25 mg, 1, tablet, By Mouth, Daily, # 90 tablet, Refills 1, Tot. Refills 1, Soft Stop, 12/16/19 15:44:00 EDT, Route to Pharmacy Electronically, [facility]/pharmacy #2070, 170.18, cm, 06/26/19 10:19:00 EDT, Height Start Date: 12/16/19 Stop Date: 06/13/20 Status: Orderedvenlafaxine 150 mg oral capsule, extended release 1 capsule = 150 mg, By Mouth, Daily, # 90 capsule, 1 Refills, Soft Stop, 12/16/19 15:46:00 EDT, [facility]/pharmacy #207, 170.18, cm, 06/26/19 10:19:00 EDT, Height Start Date: 12/16/19 Stop Date: 06/13/20 Status: Orderedvenlafaxine 150 mg oral capsule, extended release 150 mg, 1, capsule, By Mouth, Daily, with food, # 90 capsule, Refills 1, Tot. Refills 1, Maintenance, 10/28/18 11:12:13 EST, Route to Pharmacy Electronically, [id number], [facility]/pharmacy #2071 Start Date: 10/28/18 Stop Date: 04/26/19 [...]
--- OUTSIDE RECORDS SUMMARY | 2022-06-29 10:01 | XMS_ITS | Continuity of Care Document ---
:1955 Author Organization [facility] Address [address] [place] [phone]- Care Team Providers Name Role Phone Cm ROSARIO, Kayy Kulkarni Primary Care Physician Encounter [facility] Date(s): 08/17/20 - 09/16/20 [facility] [address] [place], [place] [address] Allergies, Adverse Reactions, Alerts Substance Reaction [...] (Td) 12/22/04 Given 1Result Comment: [facility] [id number] Note: vis Admin Note: Pt reports received [...] 12/11/19 10:36:00 EDT, Route to Pharmacy Electronically, [facility]/pharmacy #[id number], 170.18, cm, 06/26/19 10:19:00 EDT,Height Start Date: 12/11/19 Stop Date: 06/08/20 Status: OrderedColace sodium 100 mg oral capsule 100 mg, 1, capsule, By Mouth, 2 times a day, PRN, with plenty of water, # 60 capsule, Refills 1, Tot. Refills 1, Maintenance, for constipation, 10/28/18 11:12:39 EST, Route to Pharmacy Electronically, 9 [id number], [facility]/pharmacy... Start Date: 10/28/18 Status: OrderedFreestyle [...] Refills, Maintenance, 08/17/20 8:59:00 EST, ER Tablet, [facility]/pharmacy #[id number], Partial fill upon patient request if the prescription is for a schedule II opioid drug., 170.18, cm, 06/26/19 10:19:00 EDT, Height Start Date: 08/17/20 Stop Date: 02/13/21 Status: OrderedhydrALAZINE 25 mg oral tablet 25 mg, 1, tablet, By Mouth, 2 times a day, # 180 tablet, Refills 1, Tot. Refills 1, Maintenance, 08/17/20 8:57:00 EST, [id number] 170.18, cm, 06/26/19 10:19:00 EDT, Height Start Date: 08/17/20 Stop Date: 02/13/21 Status: OrderedLORazepam 0.5 mg oral tablet See Instructions, TAKE 1 TABLET BY MOUTH TWICE A DAY NEEDED FOR ANXIETY, # 42 tablet, 0 Refills, Soft Stop, 08/17/20 9:01:00 EST, [facility] 170.18, cm, 06/26/19 10:19:00 EDT, Height Start Date: 08/17/20 Status: Orderedlovastatin 20 mg oral tablet 1 tablet = 20 mg, By Mouth, Daily, with evening meal, # 90 tablet, 1 Refills, Maintenance, 08/16/20 16:45:00 EST, [facility] 170.18, cm, 06/26/19 10:19:00 EDT, Height Start Date: 08/16/20 Stop Date: 02/12/21 Status: OrderedNovoLOG FlexPen 100 units/mL injectable solution See Instructions, Subcutaneous Infusion 3 times a day before meals per Sliding Scale. No more than 24 units in a 24 hour period., # 3 mL, 11 Refills, Maintenance, 08/22/20 18:42:00 EST, [facility]/pharmacy #1, 170.18, cm, 06/26/19 10:19:00 EDT, Height Start Date: 08/22/20 Status: Orderedolanzapine 20 mg oral tablet See Instructions, TAKE 1 TABLET BY MOUTH EVERY DAY, # 90 tablet, 1 Refills, Maintenance, [facility] STORE 53069, 170.18, cm, 06/26/19 10:19:00 EDT, Height Start [...] Date: 08/17/20 Stop Date: 09/16/20 Status: OrderedPen [place], 30 G x 8 mm BD Ultra [...]
--- OUTSIDE RECORDS SUMMARY | 2022-06-29 10:01 | XMS_ITS | Continuity of Care Document ---
:1955 Author Organization [facility] Address [address] [place] [address]- Care Team Providers Name Role Phone Cm ROSARIO, Kayy Kulkarni Primary Care Physician Encounter [facility] Date(s): 09/22/20 - 10/22/20 [facility] [address] [place], [place] [address] Allergies, Adverse Reactions, Alerts Substance [...] tetanus-diphtheria toxoids (Td) 12/22/04 Given 1Result Comment: [facility] [id number] Note: vis Admin Note: Pt reports received while in hospital. [facility] Medications aero chamber aero chamber, with albuterol, By Mouth, Every 6 hours, PRN sob /wheeze, # 1 applicator, Refills 0, Tot. Refills 0, Maintenance, 11/08/10 11:23:49 Start Date: 11/08/10 Status: Orderedatenolol 50 mg oral tablet 100 mg, 2, tablet, By Mouth, Daily, # 180 tablet, Refills 1, Tot. Refills 1, Maintenance, 12/11/19 10:36:00 EDT, Route to Pharmacy Electronically, [facility]/pharmacy #[id number], 170.18, cm, 06/26/19 10:19:00 EDT,Height Start Date: 12/11/19 Stop Date: 06/08/20 Status: Orderedatenolol 50 mg oral tablet See Instructions, TAKE 2 TABLETS BY MOUTH EVERY DAY, # 180 tablet, Refills 1, Maintenance, Instructions Replace Required Details, Route to Pharmacy Electronically, [facility] STORE 49853, 170.18, cm, 06/26/1910:19:00 EDT, Height Start Date: 09/26/20 Status: OrderedColace sodium 100 mg oral capsule 100 mg, 1, capsule, By Mouth, 2 times a day, PRN, with plenty of water, # 60 capsule, Refills 1, Tot. Refills 1, Maintenance, for constipation, 10/28/18 11:12:39 EST, Route to Pharmacy Electronically, 9 [id number], [facility]/pharmacy... Start Date: 10/28/18 Status: OrderedFreestyle Lite Lancets [...] Maintenance, 08/17/20 8:59:00 EST, ER Tablet, [facility]/pharmacy #207, Partial fill upon patient request if the prescription is for a schedule II opioid drug., 170.18, cm, 06/26/19 10:19:00 EDT, Height Start Date: 08/17/20 Stop Date: 02/13/21 Status: OrderedhydrALAZINE 25 mg oral tablet 25 mg, 1, tablet, By Mouth, 2 times a day, # 180 tablet, Refills 1, Tot. Refills 1, Maintenance, 08/17/20 8:57:00 EST, Route to Pharmacy Electronically, [facility]/pharmacy #2070, 170.18, cm, 06/26/19 10:19:00 EDT, Height Start Date: 08/17/20 Stop Date: 02/13/21 Status: OrderedLORazepam 0.5 mg oral tablet See Instructions, TAKE 1 TABLET BY MOUTH TWICE A DAY NEEDED FOR ANXIETY, # 42 tablet, 0 Refills, Soft Stop, 08/17/20 9:01:00 EST, [facility]/pharmacy #2070, 170.18, cm, 06/26/19 10:19:00 EDT, Height Start Date: 08/17/20 Status: Orderedlovastatin 20 mg oral tablet 1 tablet = 20 mg, By Mouth, Daily, with evening meal, # 90 tablet, 1 Refills, Maintenance, 08/16/20 16:45:00 EST, Tablet, [facility]/pharmacy #2070, 170.18, cm, 06/26/19 10:19:00 EDT, Height Start Date: 08/16/20 Stop Date: 02/12/21 Status: OrderedNovoLOG FlexPen 100 units/mL injectable solution See Instructions, Subcutaneous Infusion 3 times a day before meals per Sliding Scale. No more than 24 units in a 24 hour period., # 3 mL, 11 Refills, Maintenance, 08/22/20 18:42:00 EST, [facility]/pharmacy #2070, 170.18, cm, 06/26/19 10:19:00 EDT, Height Start Date: 08/22/20 Status: Orderedolanzapine 20 mg oral tablet See Instructions, TAKE 1 TABLET BY MOUTH EVERY DAY, # 90 tablet, 1 Refills, Maintenance, [facility] STORE 89845, 170.18, cm, 06/26/19 10:19:00 EDT, Height Start [...] Date: 08/17/20 Stop Date: 09/16/20 Status: OrderedPen [place], 30 G x 8 mm BD Ultra [...] Refills, Soft Stop, 09/23/20 10:04:00 EST, [facility]/pharmacy #[id number], 170.18, cm, 06/26/19 10:19:00 EDT, Height [...]
--- OUTSIDE RECORDS SUMMARY | 2022-06-29 10:01 | XMS_ITS | Continuity of Care Document ---
:1955 Author Organization [facility] Address [address] [place] [address]- Care Team Providers Name Role Phone Cm [employer], Kayy Kulkarni Primary Care Physician Encounter [facility] Date(s): 07/07/20 - 08/06/20 [facility] [address] [place], [place] [address] Allergies, Adverse Reactions, Alerts [...] toxoids (Td) 12/22/04 Given 1Result Comment: [facility] [id number] Note: vis Admin Note: Pt reports received while in hospital. [facility] Medications aero chamber aero chamber, with albuterol, By Mouth, Every 6 hours, PRN sob /wheeze, # 1 applicator, Refills 0, Tot. Refills 0, Maintenance, 11/08/10 11:23:49 Start Date: 11/08/10 Status: Orderedatenolol 50 mg oral tablet 100 mg, 2, tablet, By Mouth, Daily, # 180 tablet, Refills 1, Tot. Refills 1, Maintenance, 12/11/19 10:36:00 EDT, Route to Pharmacy Electronically, [facility]/pharmacy #[id number], 170.18, cm, 06/26/19 10:19:00 EDT,Height Start Date: 12/11/19 Stop Date: 06/08/20 Status: Orderedclopidogrel 75 mg oral tablet See Instructions, TAKE 1 TABLET BY MOUTH EVERY DAY, # 90 tablet, Refills 1, Maintenance, Instructions Replace Required Details, Route to Pharmacy Electronically, [facility] STORE 64868, 170.18, cm, 06/26/19 10:19:00 EDT, Height Start Date: 03/14/20 Status: OrderedColace sodium 100 mg oral capsule 100 mg, 1, capsule, By Mouth, 2 times a day, PRN, with plenty of water, # 60 capsule, Refills 1, Tot. Refills 1, Maintenance, for constipation, 10/28/18 11:12:39 EST, Route to Pharmacy Electronically, 9 [id number], [facility]/pharmacy... Start Date: 10/28/18 Status: [...] 0 Refills, Soft Stop, 02/04/20 17:13:00 EDT, [facility]/pharmacy #[id number], 170.18, cm, 06/26/19 10:19:00 EDT, Height Start Date: 02/04/20 Status: OrderedglipiZIDE 10 mg oral tablet See Instructions, TAKE 1 TABLET BY MOUTH TWICE A DAY, # 180 tablet, 1 Refills, Maintenance, [facility], 170.18, cm, 06/26/19 10:19:00 EDT, Height Start Date: 05/10/20 Status: OrderedhydrALAZINE 25 mg oral tablet 25 mg, 1, tablet, By Mouth, 2 times a day, # 180 tablet, Refills 1, Tot. Refills 1, Maintenance, 01/15/20 16:34:00 EDT, Route to Pharmacy Electronically, [facility]/pharmacy #1, 170.18, cm, 06/26/19 10:19:00 EDT, Height Start Date: 01/15/20 Stop Date: 07/13/20 Status: OrderedLORazepam 0.5 mg oral tablet See Instructions, TAKE 1 TABLET BY MOUTH TWICE A DAY NEEDED FOR ANXIETY, # 42 tablet, 0 Refills, Soft Stop, 04/30/20 15:23:00 EDT, [facility]/pharmacy #1, 170.18, cm, 06/26/19 10:19:00 EDT, Height Start Date: 04/30/20 Status: Orderedlovastatin 20 mg oral tablet 1 tablet = 20 mg, By Mouth, Daily, with evening meal, # 90 tablet, 1 Refills, Maintenance, 12/16/19 10:39:00 EDT, Tablet, [facility]/pharmacy #1, 170.18, cm, 06/26/19 10:19:00 EDT, Height Start Date: 12/16/19 Stop Date: 06/13/20 Status: Orderedolanzapine 20 mg oral tablet See Instructions, TAKE 1 TABLET BY MOUTH EVERY DAY, # 90 tablet, 1 Refills, Maintenance, [facility], 170.18, cm, 06/26/19 10:19:00 EDT, Height Start Date: 05/05/20 Status: Orderedolanzapine 20 mg oral tablet 1 tablet = 20 mg, By Mouth, Daily, # 90 tablet, 1 Refills, Maintenance, 12/11/19 10:37:00 EDT, [facility]/pharmacy #2070, 170.18, cm, 06/26/19 10:19:00 EDT, Height Start Date: 12/11/19 Stop Date: 06/08/20 Status: OrderedPlavix 75 mg oral tablet 75 mg, 1, tablet, By Mouth, Daily, # 90 tablet, Refills 1, Tot. Refills 1, Maintenance, 06/26/19 10:44:35 EDT, Route to Pharmacy Electronically, [id number], [facility]/pharmacy #[id number] Start Date: 06/26/19 Stop Date: 12/23/19 Status: Orderedpolyethylene glycol 3350 oral powder for reconstitution See Instructions, # 255 Gm, TAKE 17 GRAMS DISSOLVED IN WATER OR JUICE EVERY DAY NEEDED, [facility]/pharmacy #2070 Start Date: 06/26/19 Status: Orderedpolyethylene [...] 12/16/19 15:44:00 EDT, Route to Pharmacy Electronically, [facility]/pharmacy #2070, 170.18, cm, 06/26/19 10:19:00 EDT, Height Start Date: 12/16/19 Stop Date: 06/13/20 Status: Orderedvenlafaxine 150 mg oral capsule, extended release 1 capsule = 150 mg, By Mouth, Daily, # 90 capsule, 1 Refills, Soft Stop, 12/16/19 15:46:00 EDT, [facility]/pharmacy #2071, 170.18, cm, 06/26/19 10:19:00 EDT, Height Start Date: 12/16/19 Stop Date: 06/13/20 Status: Orderedvenlafaxine 150 mg oral capsule, extended release 150 mg, 1, capsule, By Mouth, Daily, with food, # 90 capsule, Refills 1, Tot. Refills 1, Maintenance, 10/28/18 11:12:13 EST, Route to Pharmacy Electronically, [id number], [facility]/pharmacy #[id number] Start Date: 10/28/18 Stop Date: 04/26/19 Status: Orderedvenlafaxine 75 mg oral capsule, extended release 1 capsule = 75 mg, By Mouth, Daily, # 90 capsule, 1 Refills, Soft Stop, 01/01/20 12:46:00 EDT, [facility]/pharmacy #[id number], 170.18, cm, 06/26/19 10:19:00 EDT, [...]
--- OUTSIDE RECORDS SUMMARY | 2022-06-29 10:01 | XMS_ITS | Continuity of Care Document ---
:1955 Author Organization [facility] Address [address] [place] [address]- Care Team Providers Name Role Phone Cm ROSARIO, Kayy Kulkarni Primary Care Physician Encounter [facility] Date(s): 10/14/21 - 11/13/21 [facility] [address] [place] [address]- Allergies, Adverse Reactions, Alerts No Known Allergies [...] tetanus-diphtheria toxoids (Td) 12/22/04 Given 1Result Comment: [facility] [id number] Comment: [facility] [id number] Note: vis Admin Note: Pt reports received [...] 09/15/21 12:58:00 EST, Route to Pharmacy Electronically, [facility]/pharmacy #[id number], Partial fill upon patient request ifthe prescription [...] 11:12:39 EST, Route to Pharmacy Electronically, 9 [id number], [facility]/pharmacy... Start Date: 10/28/18 Status: OrderedFREESTYLE [...] tablet, Refills 0, Route to Pharmacy Electronically, [facility] Start Date: 07/31/21 Status: OrderedglipiZIDE 5 mg oral tablet See Instructions, TAKE 1 TABLET BY MOUTH TWICE A DAY, # 180 tablet, Refills 1, Tot. Refills 1, Instructions Replace Required Details, Route to Pharmacy Electronically, [facility] STORE Start Date: 10/13/21 Status: OrderedhydrALAZINE 25 mg oral tablet 1, tablet, By Mouth, 2 times a day, for 30 days, # 60 tablet, Refills 5, Tot. Refills 5, Physician Stop 03/22/22 13:51:00 EDT, 09/23/21 13:51:00 EST, [id number] Start Date: 09/23/21 Stop Date: 03/22/22 Status: OrderedLORazepam 0.5 mg oral tablet See Instructions, TAKE 1 TABLET BY MOUTH TWICE A DAY NEEDED FOR ANXIETY, # 42 tablet, 0 Refills, Soft Stop, 08/17/20 9:01:00 EST, [facility]/pharmacy #[id number], 170.18, cm, 06/26/19 10:19:00 EDT, Height Start Date: 08/17/20 Status: Orderedlovastatin 20 mg oral tablet See Instructions, TAKE 1 TABLET BY MOUTH EVERY DAY WITH EVENING MEAL, # 30 tablet, 0 Refills, 05/08/21 7:36:00 EDT, [id number] 170.18, cm, 06/26/19 10:19:00 EDT, Height Start Date: 05/08/21 Status: Orderedlovastatin 20 mg oral tablet See Instructions, TAKE 1 TABLET BY MOUTH EVERY DAY WITH EVENING MEAL, # 90 tablet, 1 Refills, [facility] STORE 40951 Start Date: 10/13/21 Status: OrderedNovoLOG FlexPen 100 units/mL injectable solution See Instructions, Subcutaneous Infusion 3 times a day before meals per Sliding Scale. No more than 24 units in a 24 hour period., # 3 mL, 11 Refills, Maintenance, 09/15/21 12:59:00 EST, [facility] Start Date: 09/15/21 Status: Orderedolanzapine 20 mg oral tablet 1 tablet, By Mouth, Daily, # 90 tablet, 1 Refills, 10/10/21 13:47:00 EST, [facility]/pharmacy #2070 Start Date: 10/10/21 Status: OrderedPen [place], 30 G x 8 mm BD Ultra [...] 0 Refills, Soft Stop, 09/06/21 16:35:00 EST, [facility]/pharmacy #[id number] Start Date: 09/06/21 Stop Date: 12/05/21 Status: Orderedvenlafaxine 150 mg oral capsule, extended release See Instructions, TAKE 1 CAPSULE BY MOUTH EVERY DAY WITH 75MG CAP ONCE DAILY, # 90 capsule, 1 Refills, [facility]14 Start Date: 10/13/21 Status: Orderedvenlafaxine 75 mg oral capsule, extended release 1 capsule, By Mouth, Daily, # 90 capsule, 0 Refills, Maintenance, 09/06/21 16:36:00 EST, [facility]/pharmacy #[id number] Start Date: 09/06/21 Status: Ordered Problem [...]
--- OUTSIDE RECORDS SUMMARY | 2022-06-29 10:01 | XMS_ITS | Continuity of Care Document ---
:1955 Author Organization [facility] Address [address] [place] [address]- Care Team Providers Name Role Phone Cm ROSARIO, Kayy Kulkarni Primary Care Physician Encounter [facility] Date(s): 07/26/21 - 08/25/21 [facility] [address] [place] [address]- Allergies, Adverse Reactions, Alerts Substance Reaction Severity [...] tetanus-diphtheria toxoids (Td) 12/22/04 Given 1Result Comment: [facility] [id number] Note: vis Admin Note: Pt reports received while in hospital. [facility] Medications aero chamber aero chamber, with albuterol, By Mouth, Every 6 hours, PRN sob /wheeze, # 1 applicator, Refills 0, Tot. Refills 0, Maintenance, 11/08/10 11:23:49 Start Date: 11/08/10 Status: Orderedatenolol 50 mg oral tablet 100 mg, 2, tablet, By Mouth, Daily, # 180 tablet, Refills 1, Tot. Refills 1, Maintenance, 12/11/19 10:36:00 EDT, Route to Pharmacy Electronically, [facility]/pharmacy #[id number], 170.18, cm, 06/26/19 10:19:00 EDT,Height Start Date: 12/11/19 Stop Date: 06/08/20 Status: Orderedatenolol 50 mg oral tablet See Instructions, TAKE 2 TABLETS BY MOUTH EVERY DAY, # 180 tablet, Refills 1, Maintenance, Instructions Replace Required Details, Route to Pharmacy Electronically, [facility] STORE 77302, 170.18, cm, 06/26/1910:19:00 EDT, Height Start Date: 09/26/20 Status: OrderedColace sodium 100 mg oral capsule 100 mg, 1, capsule, By Mouth, 2 times a day, PRN, with plenty of water, # 60 capsule, Refills 1, Tot. Refills 1, Maintenance, for constipation, 10/28/18 11:12:39 EST, Route to Pharmacy Electronically, 9 [id number], [facility]/pharmacy... Start Date: 10/28/18 Status: OrderedFREESTYLE [...] tablet, Refills 0, Route to Pharmacy Electronically, [facility] STORE 98368 Start Date: 07/31/21 Status: OrderedhydrALAZINE 25 mg oral tablet 1, tablet, By Mouth, 2 times a day, # 60 tablet, Refills 0, Tot. Refills 0, Maintenance, 08/23/21 15:44:00 EST, Route to Pharmacy Electronically, [facility]/pharmacy #207 Start Date: 08/23/21 Stop Date: 09/22/21 Status: OrderedLORazepam 0.5 mg oral tablet See Instructions, TAKE 1 TABLET BY MOUTH TWICE A DAY NEEDED FOR ANXIETY, # 42 tablet, 0 Refills, Soft Stop, 08/17/20 9:01:00 EST, [facility]/pharmacy #2070, 170.18, cm, 06/26/19 10:19:00 EDT, Height Start Date: 08/17/20 Status: Orderedlovastatin 20 mg oral tablet See Instructions, TAKE 1 TABLET BY MOUTH EVERY DAY WITH EVENING MEAL, # 30 tablet, 0 Refills, 05/08/21 7:36:00 EDT, [facility]/pharmacy #2070, 170.18, cm, 06/26/19 10:19:00 EDT, Height Start Date: 05/08/21 Status: OrderedNovoLOG FlexPen 100 units/mL injectable solution See Instructions, Subcutaneous Infusion 3 times a day before meals per Sliding Scale. No more than 24 units in a 24 hour period., # 3 mL, 11 Refills, Maintenance, 08/22/20 18:42:00 EST, [facility]/pharmacy #2070, 170.18, cm, 06/26/19 10:19:00 EDT, Height Start Date: 08/22/20 Status: Orderedolanzapine 20 mg oral tablet 1 tablet, By Mouth, Daily, # 90 tablet, 0 Refills, [facility] STORE 57470, 170.18, cm, 06/26/19 10:19:00 EDT, Height Start [...] Date: 08/17/20 Stop Date: 09/16/20 Status: OrderedPen [place], 30 G x 8 mm BD Ultra [...] Refills, Soft Stop, 03/28/21 10:22:00 EDT, [id number], 170.18, cm, 06/26/19 10:19:00 EDT, Height Start Date: 03/28/21 Stop Date: 09/24/21 Status: Orderedvenlafaxine 75 mg oral capsule, extended release 1 capsule, By Mouth, Daily, # 90 capsule, 1 Refills, Maintenance, 03/14/21 17:37:00 EDT, [facility], 170.18, cm, 06/26/19 10:19:00 EDT, Height Start [...]
--- OUTSIDE RECORDS SUMMARY | 2022-06-29 10:01 | XMS_ITS | Continuity of Care Document ---
:1955 Author Organization [facility] Address [address] [place] [address]- Care Team Providers Name Role Phone Cm ROSARIO, Kayy Kulkarni Primary Care Physician Encounter [facility] Date(s): 07/06/21 - 08/05/21 [facility] [address] [place] [address]- Allergies, Adverse Reactions, Alerts Substance Reaction Severity [...] tetanus-diphtheria toxoids (Td) 12/22/04 Given 1Result Comment: [facility] [id number] Note: vis Admin Note: Pt reports received [...] 12/11/19 10:36:00 EDT, Route to Pharmacy Electronically, [facility]/pharmacy #2071, 170.18, cm, 06/26/19 10:19:00 EDT,Height Start Date: 12/11/19 Stop Date: 06/08/20 Status: Orderedatenolol 50 mg oral tablet See Instructions, TAKE 2 TABLETS BY MOUTH EVERY DAY, # 180 tablet, Refills 1, Maintenance, Instructions Replace Required Details, Route to Pharmacy Electronically, [facility] STORE 06156, 170.18, cm, 06/26/1910:19:00 EDT, Height Start Date: 09/26/20 Status: OrderedColace sodium 100 mg oral capsule 100 mg, 1, capsule, By Mouth, 2 times a day, PRN, with plenty of water, # 60 capsule, Refills 1, Tot. Refills 1, Maintenance, for constipation, 10/28/18 11:12:39 EST, Route to Pharmacy Electronically, 9 [id number], [facility]/pharmacy... Start Date: 10/28/18 Status: OrderedFREESTYLE 28G [...] tablet, Refills 0, Route to Pharmacy Electronically, [facility] ST[facility] [address]99 Start Date: 07/31/21 Status: OrderedhydrALAZINE 25 mg oral tablet 1, tablet, By Mouth, 2 times a day, # 60 tablet, Refills 0, Tot. Refills 0, Maintenance, 07/27/21 17:56:00 EST, Route to Pharmacy Electronically, [facility]/pharmacy #207 Start Date: 07/27/21 Stop Date: 08/26/21 Status: OrderedLORazepam 0.5 mg oral tablet See Instructions, TAKE 1 TABLET BY MOUTH TWICE A DAY NEEDED FOR ANXIETY, # 42 tablet, 0 Refills, Soft Stop, 08/17/20 9:01:00 EST, [facility]/pharmacy #2070, 170.18, cm, 06/26/19 10:19:00 EDT, Height Start Date: 08/17/20 Status: Orderedlovastatin 20 mg oral tablet See Instructions, TAKE 1 TABLET BY MOUTH EVERY DAY WITH EVENING MEAL, # 30 tablet, 0 Refills, 05/08/21 7:36:00 EDT, [facility]/pharmacy #2070, 170.18, cm, 06/26/19 10:19:00 EDT, Height Start Date: 05/08/21 Status: OrderedNovoLOG FlexPen 100 units/mL injectable solution See Instructions, Subcutaneous Infusion 3 times a day before meals per Sliding Scale. No more than 24 units in a 24 hour period., # 3 mL, 11 Refills, Maintenance, 08/22/20 18:42:00 EST, [facility]/pharmacy #2070, 170.18, cm, 06/26/19 10:19:00 EDT, Height Start Date: 08/22/20 Status: Orderedolanzapine 20 mg oral tablet 1 tablet, By Mouth, Daily, # 90 tablet, 0 Refills, [facility] STORE 76048, 170.18, cm, 06/26/19 10:19:00 EDT, Height Start [...] Date: 08/17/20 Stop Date: 09/16/20 Status: OrderedPen [place], 30 G x 8 mm BD Ultra [...] Refills, Maintenance, 03/14/21 17:37:00 EDT, [facility], 170.18, cm, 06/26/19 10:19:00 EDT, Height Start [...]
--- OUTSIDE RECORDS SUMMARY | 2022-06-29 10:02 | XMS_ITS | Summary of Care ---
:1955 Author Organization [facility] o f [facility] Address [address] [place] [address]- Encounter 02/08/17 - 02/28/17 [facility] [address] [place] [address]- Discharge Diagnosis: DM - Diabetes mellitus Discharge Diagnosis: CAD - Coronary artery disease Discharge Diagnosis: Pneumonia Discharge Diagnosis: COPD - Chronic obstructive pulmonary disease Discharge Diagnosis: HTN - Hypertension Discharge Diagnosis: Depression Discharge Diagnosis: H/O: CVA Attending Physician: Rita Garay MD Vital Signs Most recent to oldest 1 2 3 [Reference Range]: Temperature Oral F 96.4 DegF 96.2 DegF 96.4 DegF [96.4-99.1 DegF] (02/28/17 5:11 AM) *LOW* (02/27/17 5:07 A M) (02/27/17 3:00 PM) Peripheral Pulse Rate 67 bpm 68 bpm 65 bpm [60-100 bpm] (02/28/17 8:37 AM) (02/28/17 5:11 AM) (02/27/17 7:23 P M) Respiratory Rate [14-20 20 br/min 20 br/min 20 br/mi n br/min] (02/28/17 5:11 AM) (02/27/17 3:00 PM) (02/27/17 5:07 A M) Blood Pressure 135/62 mmHg 136/68 mmHg [90-140/60-90 mmHg] (02/28/17 8:37 AM) (02/27/17 7:23 PM) Systolic Blood Pressure 150 mmHg [90-140 mmHg] *HI* (02/28/17 5:11 AM) Diastolic Blood Pressure 71 mmHg [60-90 mmHg] (02/28/17 5:11 AM) Diastolic Blood Pressure 80 mmHg 56 mmHg with Activity [60-90 mmHg] (02/25/17 10:00 AM) *LOW* (02/11/17 1:00 PM) Systolic Blood Pressure 125 mmHg 139 mmHg with Activity [90-140 (02/25/17 10:00 AM) (02/11/17 1:00 PM) mmHg] Vital Signs w/ Activity Post STS transfer, has c/o dizziness - B P stable. Additional Info (02/11/17 1:00 PM) Temperature Oral 35.8 DegC 35.7 DegC 35.8 DegC [35.8-37.3 DegC] (02/28/17 5:11 AM) *LOW* (02/27/17 5:07 A M) (02/27/17 3:00 PM) Problem List Condition Effective Dates Status Health Status Informant CAD - Coronary artery Active disease(Confirmed) COPD - Chronic obstructive pulmonary Active disease(Confirmed) Depression(Confirmed) Active DM - Diabetes mellitus(Confirmed) Active H/O: CVA(Confirmed) Active HTN - Hypertension(Confirmed) Active Hyperlipidemia(Confirmed) Active Pneumonia(Confirmed) Active Allergies, Adverse Reactions, Alerts Substance Reaction Severity Status No Known Allergies Active Medications atenolol 50 mg oral tablet 50 mg = 1 tab, Tab, Oral, BID, 60 tab, 0 Refill(s), Print Requisition Start Date: 02/27/17 Status: Orderedclopidogrel 75 mg oral tablet 75 mg = 1 tab, Tab, Oral, Daily, 30 tab, 0 Refill(s), Print Requisition Start Date: 02/27/17 Status: Ordereddocusate sodium 100 mg oral capsule 100 mg = 1 cap, Cap, Oral, BID PRN, 60 cap, 0 Refill(s), for constipation, Print Requisition Start Date: 02/27/17 Status: OrderedglipiZIDE 10 mg oral tablet 10 mg = 1 tab, Tab, Oral, BIDAC, 60 tab, 0 Refill(s), 30 minutes before breakfast, Print Requisition Start Date: 02/27/17 Status: OrderedhydrALAZINE 50 mg oral tablet 50 mg = 1 tab, Tab, Oral, BID, 60 tab, 0 Refill(s), Print Requisition Start Date: 02/27/17 Status: Orderedlactulose 10 g/15 mL oral syrup 20 gm = 30 mL, Syrup, Oral, BID, 840 mL, 0 Refill(s), Dispense: 14 day, Stop date 03/13/17 17:08:00 EDT, Print Requisition Start Date: 02/27/17 Stop Date: 03/13/17 Status: Orderedlovastatin 20 mg oral tablet 20 mg, 1 tab, Tab, Oral, QHS, tab Start Date: 02/08/17 Status: OrderedMilk of Magnesia 8% oral suspension 2.4 gm, 30 mL, Susp, Oral, Daily PRN, 0 Refill(s), Constipation Start Date: 02/27/17 Status: OrderedMultiple Vitamins with Minerals oral tablet 1 tab, Tab, Oral, QLUNCH, 0 Refill(s) Start Date: 02/27/17 Status: OrderedOLANZapine 20 mg oral tablet 20 mg = 1 tab, Tab, Oral, QHS Start Date: 02/08/17 Status: Orderedpolyethylene glycol 3350 oral powder for reconstitution 17 gm, Powder-Recon, Oral, Daily PRN, 527 gm, 0 Refill(s), Constipation, Print Requisition Start Date: 02/27/17 Status: Orderedsenna 8.6 mg oral tablet 17.2 mg = 2 tab, Tab, Oral, QHS PRN, 0 Refill(s), Constipation Start Date: 02/27/17 Status: OrderedSenokot S 2 tab, Tab, Oral, QHS, 0 Refill(s) Start Date: 02/27/17 Status: Orderedspironolactone 25 mg oral tablet 25 mg = 1 tab, Tab, Oral, Daily, 30 tab, 0 Refill(s), Print Requisition Start Date: 02/27/17 Status: Orderedvenlafaxine 225 mg oral tablet, extended release 225 mg = 1 tab, Tab-ER, Oral, Daily Start Date: 02/08/17 Status: Ordered Results LABORATORY Most recent to oldest 1 2 3 [Reference Range]: Glucose POC RALS [74-106 126 mg/dL 134 mg/dL 108 mg/ dL mg/dL] *HI* *HI* *HI* (02/28/17 6:00 AM) (02/27/17 4:20 PM) (02/27/17 6:12 A M) Blood Glucose, Capillary 134 mg/dL 202 mg/dL 145 mg/ dL [74-106 mg/dL] *HI* *HI* *HI* (02/27/17 4:40 PM) (02/26/17 4:30 PM) (02/25/17 5:07 P M) Estimated Creatinine 55.52 mL/min 58.28 mL/min 58.28 mL/mi n Clearance (02/20/17 5:34 PM) (02/19/17 5:44 AM) (02/17/17 11: 13 AM) Creatinine Level 1.27 mg/dL 1.21 mg/dL 1.38 mg/dL (02/20/17 5:34 PM) (02/13/17 10:14 AM) (02/10/17 11 :56 AM)
--- OUTSIDE RECORDS SUMMARY | 2022-06-29 10:02 | XMS_ITS | Continuity of Care Document ---
:1955 Author Organization [facility] Address [address] [place] [address]- Care Team Providers Name Role Phone Cm ROSARIO, Kayy Kulkarni Primary Care Physician Encounter [facility] Date(s): 05/28/22 - 06/27/22 [facility] [address] [place] [id number]- Allergies, Adverse Reactions, Alerts No Known Allergies [...] tetanus-diphtheria toxoids (Td) 12/22/04 Given 1Result Comment: [facility] [phone] Comment: [facility] [id number] Note: vis Admin Note: Pt reports received while in hospital. [facility] Medications aero chamber aero chamber, with albuterol, By Mouth, Every 6 hours, PRN sob /wheeze, # 1 applicator, Refills 0, Tot. Refills 0, Maintenance, 11/08/10 11:23:49 Start Date: 11/08/10 Status: Orderedaspirin 81 mg oral delayed release tablet 81 mg, 1, tablet, By Mouth, Daily, # 90 tablet, Refills 1, Tot. Refills 1, Maintenance, 09/15/21 12:58:00 EST, Route to Pharmacy Electronically, [facility]/pharmacy #[id number], Partial fill upon patient request ifthe prescription is for a schedule II opioid drug. Start Date: 09/15/21 Stop Date: 03/14/22 Status: OrderedAspirin Low Dose 81 mg oral delayed release tablet 1 tablet, By Mouth, Daily, # 90 tablet, 1 Refills, [facility] STORE [id number], 170.18, cm, 02/12/22 10:54:00 EDT, Height Start Date: 03/22/22 Status: Orderedatenolol 50 mg oral tablet See Instructions, TAKE 1 TABLET BY MOUTH EVERY DAY, # 180 tablet, Refills 1, Tot. Refills 1, Maintenance, 02/12/22 11:12:00 EDT, Instructions Replace Required Details, Route to Pharmacy Electronically,[facility]/pharmacy #[id number], 170.18, cm, 02/12/22 10:54:0... Start Date: 02/12/22 Status: OrderedColace sodium 100 mg oral capsule 100 mg, 1, capsule, By Mouth, 2 times a day, PRN, with plenty of water, # 60 capsule, Refills 1, Tot. Refills 1, Maintenance, for constipation, 10/28/18 11:12:39 EST, Route to Pharmacy Electronically, 9 [id number], [facility]/pharmacy... Start Date: 10/28/18 Status: OrderedFREESTYLE 28G [...] tablet, Refills 0, Route to Pharmacy Electronically, [facility] Start Date: 07/31/21 Status: OrderedglipiZIDE 5 mg oral tablet See Instructions, TAKE 1 TABLET BY MOUTH TWICE A DAY, # 180 tablet, Refills 1, Tot. Refills 1, Instructions Replace Required Details, Route to Pharmacy Electronically, [facility] Start Date: 10/13/21 Status: OrderedglipiZIDE 5 mg oral tablet 1, tablet, By Mouth, 2 times a day, # 180 tablet, Refills 1, Route to Pharmacy Electronically, [facility] , 170.18, cm, 02/12/22 10:54:00 EDT, Height Start Date: 03/22/22 Status: OrderedhydrALAZINE 25 mg oral tablet 1, tablet, By Mouth, 2 times a day, for 30 days, # 60 tablet, Refills 5, Tot. Refills 5, Physician Stop 08/11/22 11:12:00 EST, 02/12/22 11:12:00 EDT, [id number] 170[facility], cm, 02/12/22 10:54:00 EDT, Height Start Date: 02/12/22 Stop Date: 08/11/22 Status: OrderedLORazepam 0.5 mg oral tablet See Instructions, TAKE 1 TABLET BY MOUTH TWICE A DAY NEEDED FOR ANXIETY, # 42 tablet, 0 Refills, Soft Stop, 04/13/22 14:38:00 EDT, [facility]/pharmacy #1, 170.18, cm, 02/12/22 10:54:00 EDT, Height Start Date: 04/13/22 Status: Orderedlovastatin 20 mg oral tablet See Instructions, TAKE 1 TABLET BY MOUTH EVERY DAY WITH EVENING MEAL, # 90 tablet, 1 Refills, [facility] , 170.18, cm, 02/12/22 10:54:00 EDT, Height Start Date: 03/22/22 Status: OrderedNovoLOG FlexPen 100 units/mL injectable solution See Instructions, Subcutaneous Infusion 3 times a day before meals per Sliding Scale. No more than 24 units in a 24 hour period., # 3 mL, 11 Refills, Maintenance, 09/15/21 12:59:00 EST, [facility] Start Date: 09/15/21 Status: Orderedolanzapine 20 mg oral tablet 1 tablet, By Mouth, Daily, # 90 tablet, 1 Refills, Maintenance, 06/08/22 9:05:00 EDT, [id number], 170.18, cm, 02/12/22 10:54:00 EDT, Height Start Date: 06/08/22 Status: OrderedPen [place], 30 G x 8 mm BD Ultra [...] # 90 capsule, 0 Refills, [facility], 170.18, cm, 02/12/22 10:54:00 EDT, Height Start Date: 03/22/22 Status: Orderedvenlafaxine 150 mg oral capsule, extended release 1 capsule, By Mouth, Daily, # 90 capsule, 0 Refills, [facility] Start Date: 12/26/21 Status: Orderedvenlafaxine 75 mg oral capsule, extended release 1 capsule, By Mouth, Daily, # 90 capsule, 0 Refills, [facility], 170.18, cm, 02/12/22 10:54:00 EDT, Height Start Date: 03/22/22 Status: Orderedvenlafaxine 75 mg oral capsule, extended release 1 capsule, By Mouth, Daily, # 90 capsule, 0 Refills, [facility] Start Date: 12/26/21 Status: Ordered Problem List [...] PersonnelName: Cm ROSARIO, Kayy Kulkarni Address: Address: [address] [place] [address] Adult [facility] [address]
--- OUTSIDE RECORDS SUMMARY | 2022-06-29 10:02 | XMS_ITS | Continuity of Care Document ---
:1955 Author Organization [facility] Address [address] [place] [address]- Care Team Providers Name Role Phone Kayy Pabon NP Primary Care Physician Encounter [facility] Date(s): 09/20/21 - 09/27/21 [facility] [address] [place] [id number]- Attending Physician: Kayy Pabon NP Allergies, Adverse [...] tetanus-diphtheria toxoids (Td) 12/22/04 Given 1Result Comment: [facility] [id number] Comment: [facility] [phone] Note: vis Admin Note: Pt reports received while in hospital. [facility] Medications aero chamber aero chamber, with albuterol, By Mouth, Every 6 hours, PRN sob /wheeze, # 1 applicator, Refills 0, Tot. Refills 0, Maintenance, 11/08/10 11:23:49 Start Date: 11/08/10 Status: Orderedaspirin 81 mg oral delayed release tablet 81 mg, 1, tablet, By Mouth, Daily, # 90 tablet, Refills 1, Tot. Refills 1, Maintenance, 09/15/21 12:58:00 EST, Route to Pharmacy Electronically, [facility]/pharmacy #[id number], Partial fill upon patient request ifthe prescription [...] 11:12:39 EST, Route to Pharmacy Electronically, 9 [id number], [facility]/pharmacy... Start Date: 10/28/18 Status: OrderedFREESTYLE 28G LANCETS [...] tablet, Refills 0, Route to Pharmacy Electronically, [id number] Start Date: 07/31/21 Status: OrderedhydrALAZINE 25 mg oral tablet 1, tablet, By Mouth, 2 times a day, for 30 days, # 60 tablet, Refills 5, Tot. Refills 5, Physician Stop 03/22/22 13:51:00 EDT, 09/23/21 13:51:00 EST, [facility] Start Date: 09/23/21 Stop Date: 03/22/22 Status: OrderedLORazepam 0.5 mg oral tablet See Instructions, TAKE 1 TABLET BY MOUTH TWICE A DAY NEEDED FOR ANXIETY, # 42 tablet, 0 Refills, Soft Stop, 08/17/20 9:01:00 EST, [id number] 170.18, cm, 06/26/19 10:19:00 EDT, Height Start Date: 08/17/20 Status: Orderedlovastatin 20 mg oral tablet See Instructions, TAKE 1 TABLET BY MOUTH EVERY DAY WITH EVENING MEAL, # 30 tablet, 0 Refills, 05/08/21 7:36:00 EDT, [id number] 170.18, cm, 06/26/19 10:19:00 EDT, Height Start Date: 05/08/21 Status: OrderedNovoLOG FlexPen 100 units/mL injectable solution See Instructions, Subcutaneous Infusion 3 times a day before meals per Sliding Scale. No more than 24 units in a 24 hour period., # 3 mL, 11 Refills, Maintenance, 09/15/21 12:59:00 EST, [facility] Start Date: 09/15/21 Status: Orderedolanzapine 20 mg oral tablet 1 tablet, By Mouth, Daily, # 90 tablet, 0 Refills, [facility] 90568, 170.18, cm, 06/26/19 10:19:00 EDT, Height Start Date: 05/09/21 Status: OrderedPen [place], 30 G x 8 mm BD Ultra [...] 0 Refills, Soft Stop, 09/06/21 16:35:00 EST, [facility]/pharmacy #[id number] Start Date: 09/06/21 Stop Date: 12/05/21 Status: Orderedvenlafaxine 75 mg oral capsule, extended release 1 capsule, By Mouth, Daily, # 90 capsule, 0 Refills, Maintenance, 09/06/21 16:36:00 EST, [facility]/pharmacy #[id number] Start Date: 09/06/21 Status: Ordered Problem List [...] Most recent to oldest [Reference Range]: 1 Blood Pressure [90-138/55-84 mm Hg] 118/80 mm Hg (09/20/21 10:50 AM) Blood pressure sites Arm, right (09/20/21 10:50 AM) Social History Social History Type Response Smoking Status Former smoker; Type: Cigaret brandon; Other: 1ppd; entered on: 01/08/17 Sex
[2022-06-29] MEDS: 0.9 % Sodium Chloride 1,000 ML 999 ML IV (11:01)
[2022-06-29 11:03] LABS: Basophils Absolute Auto 0.1 X10*3/uL (0.0-0.2); Basophils Percent Auto 0.4 % (0-2); Eosinophils Absolute Auto 0.1 X10*3/uL (0.0-0.4); Eosinophils Percent Auto 0.4 % (0-4); Hematocrit 46.4 % (42.0-52.0); Hemoglobin 15.2 g/dl (14.0-18.0); Imm Gran Abs Auto 0.16 X10*3/uL (0.00-0.03); Imm Gran Pct Auto 0.7 % (0.0-0.4); Lymphocytes Absolute Auto 1.3 X10*3/uL (1.2-4.9); Lymphocytes Percent Auto 5.5 % (20-40); MANUAL DIFF FLAG SCAN; Mean Corpuscular HGB Conc 32.8 g/dl (31.0-36.0); Mean Corpuscular Volume 88.5 fL (80.0-98.0); Mean Platelet Volume 9.1 fL (9.4-12.4); Monocytes Absolute Auto 1.3 X10*3/uL (0.1-1.2); Monocytes Percent Auto 5.5 % (2-11); Neutrophils Absolute Auto 20.4 x10*3/uL (2.0-8.3); Neutrophils Percent Auto 87.5 % (45-73); Platelet Count 144 X10*3/uL (160-400); Red Blood Count 5.24 X10*6/uL (4.60-5.80); Red Cell Distribution Width 14.5 % (11.0-16.0); SCAN SMEAR FLAG 1; White Blood Count 23.3 X10*3/uL (4.8-10.8)
[2022-06-29 11:11] LABS: Ammonia 21 umol/L (13-55)
[2022-06-29 11:25] LABS: B Type Natriuretic Peptide 243 pg/mL (<100); Troponin-I High Sensitivity 27.8 ng/L (<3.5-35.0)
[2022-06-29 11:27] LABS: SLIDE REVIEW VERIFIED
[2022-06-29 12:24] LABS: Appearance Urine Clear; Color Urine Yellow; Glucose Urine UA 500 mg/dL (Negative); Leukocyte Esterase Urine Small (1+) (Negative); Nitrite Urine Negative (Negative); Specific Gravity - Urine 1.025 (1.005-1.025); UMIC TRIGGER UACC YES; Urine Blood Trace (Negative); Urine Ketones 80 mg/dL (Negative); Urine Protein >=1000 (4+) mg/dL (Neg-Trace)
[2022-06-29 12:44] LABS: Bacteria Urine 2+ (None Seen); RBC Urine 0-2 /HPF (0-2); Squamous Epithelial Cell Urine 0-2 /HPF (0-2); UACC Culture Trigger YES; WBC Urine >50 /HPF (0-5)
--- NOTE | 2022-06-29 12:46 | PC.NURSE ---
per Felix PEPPER - hold the abx rocephin until urine culture has resulted.
[2022-06-29 12:56] LABS: Alanine Aminotransferase 8 U/L (0-40); Albumin Level 3.1 g/dL (3.5-5.0); Alkaline Phosphatase 103 U/L (39-117); Anion Gap 21 (12-20); Aspartate Amino Transferase 12 U/L (5-37); Bilirubin Total 0.9 mg/dL (0.0-1.0); Blood Urea Nitrogen 24 mg/dL (9-16); Carbon Dioxide 17 mmol/L (22-29); Chloride 103 mmol/L (96-108); Estimated Glomerular Filt Rate > 60; Glucose Random 222 mg/dL (60-115); Magnesium 1.9 mg/dL (1.6-2.6); Potassium 4.3 mmol/L (3.3-5.1); Sodium 137 mmol/L (135-145); Total Protein 5.7 g/dL (6.5-8.0)
[2022-06-29 13:11] LABS: Influenza A PCR NEGATIVE (Negative); Influenza B PCR NEGATIVE (Negative); Resp Syncy Virus RNA Qual PCR NEGATIVE (Negative); SARS COV2 PCR INHOUSE NEGATIVE (Negative)
[2022-06-29 13:36] VITALS: PULSE 83; RESP 18
[2022-06-29] MEDS: cefTRIAXone sodium 1 GM in 0.9 % Sodium Chloride 50 ML IV (13:37)
[2022-06-29 13:40] VITALS: BP 144/73
[2022-06-29 15:20] VITALS: BP 121/68; PULSE 80; RESP 25; O2SAT 94
--- NOTE | 2022-06-29 16:06 | PHA.MEDREC ---
Pharmacy Consult ? Medication Reconciliation Pharmacy has completed the medication reconciliation. Patient does not remember his medications, his spouse is currently be hospitalized as well with [facility] per notes. Called [facility] pharmacy where patient picks up to confirm medications. I also used a past admission discharge med list of april of this year. OF NOTE: patient has not picked up insulin since july of 2021 per [facility], previous med rec note mentions patient only takes insulin when sugars are about 250. However, its been a year since patient has even picked up insulin, I suspect non compliance.
--- NOTE | 2022-06-29 16:11 | P.HPHOSP_ITS ---
History of Present Illness Date of Service: 06/29/22 Chief Complaint: back pain The patient is a 66 year old male with a PMH as outlined below who presents to the ED with complaints of back pain. History is obtained from the patient and his son who is bedside. The patient reports that several days ago he sustained a mechanical fall resulting in injury to his back. He denies any LOC. States he was coming back to his bed from the kitchen when he lost his balance and fell hitting his back. He reoprts that he has had pain since then but today it became severe and hence the paramedics were called. The son, corroborates the same story with a slight change. The son reports that the patient was talking to his on the phone and reported that his back is bleeding and so she called the EMS. The patient was reportedly covered in feces when he was found. The patient's , who is his primary home health aide caregiver, has been sick and hospitalized herself for the last 1-2 weeks. During this time, the son checks in on him daily and helps him with his medications. The patient denies any symptoms. No chest pain, sob, cough. Reports not moving his bowel everyday. Ambulates with walker. Patients work up in the ED shows a L3 compression fracture. UA shows pyuria and 2+ bacteria; WBC count is 23k. Given his falls and these findings, will be admitted for further care. [facility] Medical History Abnormal EKG Blood bacterial culture positive COPD (chronic obstructive pulmonary disease) COVID-19 COVID-19 CVA (cerebral vascular accident) Diabetes Diabetes mellitus type 1 Dizziness Hypertension NSTEMI (non-ST elevated myocardial infarction) Pertinent family history: non-contributatory Surgical History History of percutaneous coronary intervention Social History Household Members: Spouse Housing: Apartment Do you presently have visiting nurse or other home services: No Alcohol intake: never Patient Tobacco Use Status: Never used Tobacco e-Cigarette/Vaping Use: Never Used Second Hand Smoke Exposure: No Advance Directives: Yes Advance Directives on File: Yes Advance Directives Date on File: 05/31/20 service: No Current occupational status: retired Meds Allergies Allergy/AdvReac Type Severity Reaction Status Date / Time No Known Allergies Allergy Unknown NKA Verified 07/05/20 17:17 Home Medications Medication Instructions Recorded Confirmed Last Taken Type hydralazine 25 mg tablet 25 mg PO BID 06/06/20 06/29/22 05/17/22 History lovastatin 20 mg tablet 20 mg PO BEDTIME 06/06/20 06/29/22 05/17/22 History venlafaxine 150 mg 150 mg PO DAILY 06/06/20 06/29/22 05/17/22 History capsule,extended release 24 hr venlafaxine 75 mg capsule,extended 75 cap PO DAILY 06/06/20 06/29/22 05/17/22 History release 24 hr aspirin 81 mg tablet,delayed 1 tab PO DAILY 05/18/22 06/29/22 05/17/22 History release glipizide 5 mg tablet 1 tab PO BID 05/18/22 06/29/22 05/17/22 History lorazepam 0.5 mg tablet 1 tab PO BID PRN anxiety 05/18/22 06/29/22 05/17/22 History olanzapine 20 mg tablet 1 tab PO BEDTIME 05/18/22 06/29/22 05/17/22 History Physical Exam Vital Signs and Narrative: Vital Signs: Last Vital Signs Temp 98.3 F 06/29/22 09:12 Pulse 80 06/29/22 15:20 Resp 25 H 06/29/22 15:20 BP 121/68 06/29/22 15:20 Pulse Ox 94 06/29/22 15:20 O2 Del Method 06/29/22 15:20 BMI result Body Mass Index 23.3 Const: Other: Constitutional - Awake and Alert, No apparent distress Eyes - PERRLA, EOMI Cardiovascular - S1S2, RRR, No edema Respiratory - Normal lung expansion, Normal respiratory effort, No respiratory distress, CTA bilaterally Gastrointestinal - NT / ND; +BS; No rebound or guarding - No CVA tenderness Extremities - no calf tenderness bilaterally, no swelling Musculoskeletal - lower back TTP Skin - Warm/Dry Neurological - AAOx3; L-sided weakness Psychological - Appropriate affect Results Labs CBC and Chem 7: 06/29/22 10:55 06/29/22 12:33 Labs: Laboratory Results - last 24 hr 06/29/22 06/29/22 06/29/22 10:55 10:55 10:55 MCV 88.5 MCH 29.0 MCHC 32.8 RDW 14.5 Plt Count 144 L D MPV 9.1 L Immature Gran % (Auto) 0.7 H Neut % (Auto) 87.5 H Lymph % (Auto) 5.5 L [place] % (Auto) 5.5 Eos % (Auto) 0.4 Baso % (Auto) 0.4 Lymph # (Auto) 1.3 [place] # (Auto) 1.3 H Eos # (Auto) 0.1 Baso # (Auto) 0.1 Abs Immat Gran (auto) 0.16 H Absolute Neuts (auto) 20.4 H Absolute Nucleated RBC 0.000 Nucleated RBC % (auto) 0.0 Smear Tech's Comments VERIFIED Anion Gap Estim Creat Clear Calc Estimated GFR Random Glucose Lactic Acid Calcium Magnesium Total Bilirubin AST ALT Alkaline Phosphatase Ammonia 21 Total Creatine Kinase Troponin I High Sens 27.8 B-Natriuretic Peptide 243 H Total Protein Albumin Urine Color Urine Appearance Urine pH Ur Specific [place] Urine Protein Urine Glucose (UA) Urine Ketones Urine Blood Urine Nitrite Ur Leukocyte Esterase Urine RBC Urine WBC Ur Squamous Epith Cells Urine Bacteria Hyaline Casts Influenza Type A (PCR) Influenza Type B (PCR) RSV RNA Qual (PCR) SARS-CoV-2 RNA (RT-PCR) 06/29/22 06/29/22 06/29/22 11:51 11:54 12:08 MCV MCH MCHC RDW Plt Count MPV Immature Gran % (Auto) Neut % (Auto) Lymph % (Auto) [place] % (Auto) Eos % (Auto) Baso % (Auto) Lymph # (Auto) [place] # (Auto) Eos # (Auto) Baso # (Auto) Abs Immat Gran (auto) Absolute Neuts (auto) Absolute Nucleated RBC Nucleated RBC % (auto) Smear Tech's Comments Anion Gap Estim Creat Clear Calc Estimated GFR Random Glucose Lactic Acid 1.0 Calcium Magnesium Total Bilirubin AST ALT Alkaline Phosphatase Ammonia Total Creatine Kinase Troponin I High Sens B-Natriuretic Peptide Total Protein Albumin Urine Color Yellow Urine Appearance Clear Urine pH 5.0 Ur Specific [place] 1.025 Urine Protein >=1000 (4+) H Urine Glucose (UA) 500 H Urine Ketones 80 Urine Blood Trace H Urine Nitrite Negative Ur Leukocyte Esterase Small (1+) H Urine RBC 0-2 Urine WBC >50 H Ur Squamous Epith Cells 0-2 Urine Bacteria 2+ Hyaline Casts 3-5 Influenza Type A (PCR) NEGATIVE Influenza Type B (PCR) NEGATIVE RSV RNA Qual (PCR) NEGATIVE SARS-CoV-2 RNA (RT-PCR) NEGATIVE 06/29/22 12:33 MCV MCH MCHC RDW Plt Count MPV Immature Gran % (Auto) Neut % (Auto) Lymph % (Auto) [place] % (Auto) Eos % (Auto) Baso % (Auto) Lymph # (Auto) [place] # (Auto) Eos # (Auto) Baso # (Auto) Abs Immat Gran (auto) Absolute Neuts (auto) Absolute Nucleated RBC Nucleated RBC % (auto) Smear Tech's Comments Anion Gap 21 H Estim Creat Clear Calc 56.0 Estimated GFR > 60 Random Glucose 222 H Lactic Acid Calcium 8.0 L D Magnesium 1.9 Total Bilirubin 0.9 AST 12 ALT 8 Alkaline Phosphatase 103 Ammonia Total Creatine Kinase 252 H Troponin I High Sens B-Natriuretic Peptide Total Protein 5.7 L Albumin 3.1 L Urine Color Urine Appearance Urine pH Ur Specific [place] Urine Protein Urine Glucose (UA) Urine Ketones Urine Blood Urine Nitrite Ur Leukocyte Esterase Urine RBC Urine WBC Ur Squamous Epith Cells Urine Bacteria Hyaline Casts Influenza Type A (PCR) Influenza Type B (PCR) RSV RNA Qual (PCR) SARS-CoV-2 RNA (RT-PCR) Imaging Radiologist's Impressions: Impressions Abdomen/Pelvis CT 06/29/22 11:39 IMPRESSION: 1. Compression fracture of the anterior to mid aspect of the L3 vertebral body. No extension to the posterior elements. Alignment maintained of the spine. 2. No acute traumatic finding of the chest. Moderate emphysema. 3. Prominent stool distends the rectum with rectal wall thickening and adjacent inflammation suggestive of stercoral colitis. Cervical Spine CT 06/29/22 11:39 IMPRESSION: 1. Straightening of the normal cervical lordosis may be secondary to positioning and/or muscle spasm. 2. Multilevel degenerative changes without acute abnormality. Chest CT 06/29/22 11:40 IMPRESSION: 1. Compression fracture of the anterior to mid aspect of the L3 vertebral body. No extension to the posterior elements. Alignment maintained of the spine. 2. No acute traumatic finding of the chest. Moderate emphysema. 3. Prominent stool distends the rectum with rectal wall thickening and adjacent inflammation suggestive of stercoral colitis. Head CT 11/04/22 11:40 IMPRESSION: No acute intracranial pathology. Similar appearance to the 2019 study. Assessment and Plan (1) L3 vertebral fracture: Status: Acute Plan 66 yo M with a PMH of DM2, CAD, COPD, CVA with L hemiparesis presenting with complaints of back pain. Found to have L sided compression fracture after sustaining a mechanical fall several days prior to arrival. Work up also reveals likely UTI and constipation causing stercoral colitis. He will be observed overnight. 1. Severe back pain due to L3 traumatic compression fx Pain control with oral analgesics, avoid IV if able at this time PT eval 2. Suspected UTI although the patient does not endorse symptoms his UA is positive and his wbc is over 20k empiric rocephin f/u cultures the patient does not have severe sepsis -- although he has a wbc count, likely partially reactive; furthermore his tachypnea of 25 is inaccurately measured. RR has remains well below 20. 3. Stercoral colitis from constipation stool regime 4. DM hold orals, use sliding scale POC QIDAC 5. Mood continue baseline meds Full Code DVT pptx, Lovenox Quality Stroke Does the patient have a stroke diagnosis?: No VTE Prior VTE?: No VTE Risk Level:: Medical - moderate - high VTE Device Contraindication: Treatment Not Indicated VTE Drug Contraindication: N/A - Med Ordered
[2022-06-29 16:32] LABS: Troponin-I High Sensitivity 22.7 ng/L (<3.5-35.0)
[2022-06-29] MEDS: Lactated Ringers 1,000 ML 100 ML IVCONT (17:06)
[2022-06-29] MEDS: Enoxaparin Sodium 40 MG/0.4 ML SYRINGE SUBCUT (17:12)
[2022-06-29] MEDS: Insulin Lispro 100 UNIT/ML 3 ML VIAL SUBCUT ×2 (18:31→22:00)
[2022-06-29 18:59] LABS: Glucose, Whole Blood 155 mg/dL (60-115)
--- NOTE | 2022-06-29 19:12 | MHC.CM.PN ---
Addendum entered by Radha Stover 06/29/22 20:05: Medical record from last admission states pt had 1 vaccination. Pt is not fully vaccinated. Original Note: MI 06/29. Met with patient assigned to OBS, with bed assignment pending. Pt lives with /HCP Savana ([phone]). has been hospitalized at [facility] and patient has been home alone, with son, Matty ([phone]) helping with food. According to medical record, son found patient on the floor 5 days ago, helped him into bed. Pt was speaking with on the phone today and felt the patient was altered. EMS found patient in bed with stool from his back to his feet. Pt has a [id number] fracture and tells me it's very painful if he tries to ambulate. Uses a walker at baseline. Has no services. Was recently at [facility] (05/21). Pt is unsure regarding his covid vaccination status. Pt has had Covid twice, last time in April. D/C plan: STR pending PT evaluation and recommendations. Local referrals placed. Will need BLS secondary to painful L3 fx. CM to follow for discharge planning.
[2022-06-29 20:56] LABS: Glucose, Whole Blood 216 mg/dL (60-115)
--- NOTE | 2022-06-29 21:01 | PC.NURSE ---
Nurse to nurse report given to Snow, S3 RN. Patient to be transferred to bed 380 by facility environmental technician.
[2022-06-29 21:40] VITALS: BMI 24.0
[2022-06-29] MEDS: OLANZapine 10 MG TABLET 20 MG PO (22:00)
[2022-06-29] MEDS: Pravastatin Sodium 20 MG TABLET PO (22:00)
[2022-06-29 22:24] LABS: Glucose, Whole Blood 239 mg/dL (60-115)
[2022-06-29] MEDS: Acetaminophen 325 MG TABLET 650 MG PO (23:26)
[2022-06-29] MEDS: oxyCODONE HCl Immed Release 5 MG TABLET PO (23:28)
[2022-06-30] VITALS: BP 128/60; PULSE 97; RESP 17; TEMP 36.7; O2SAT 93
[2022-06-30] MEDS: Lactated Ringers 1,000 ML 100 ML IVCONT (02:51)
[2022-06-30 06:42] LABS: Hematocrit 35.2 % (42.0-52.0); Hemoglobin 11.6 g/dl (14.0-18.0); Mean Platelet Volume 9.6 fL (9.4-12.4); Platelet Count 127 X10*3/uL (160-400); Red Cell Distribution Width 14.4 % (11.0-16.0); White Blood Count 16.8 X10*3/uL (4.8-10.8)
[2022-06-30 06:53] LABS: Anion Gap 16 (12-20); Blood Urea Nitrogen 18 mg/dL (9-16); Carbon Dioxide 23 mmol/L (22-29); Chloride 103 mmol/L (96-108); Estimated Glomerular Filt Rate > 60; Glucose Random 183 mg/dL (60-115); Potassium 3.5 mmol/L (3.3-5.1); Sodium 138 mmol/L (135-145)
[2022-06-30 08:00] VITALS: BP 149/90; PULSE 83; RESP 18; TEMP 36.6; O2SAT 94
[2022-06-30 08:01] LABS: Glucose, Whole Blood 178 mg/dL (60-115)
[2022-06-30] MEDS: oxyCODONE HCl Immed Release 5 MG TABLET PO (08:30)
[2022-06-30] MEDS: Aspirin Enteric Coated 81 MG TABLET.DR PO (08:30)
[2022-06-30] MEDS: atenoloL 50 MG TABLET PO (08:30)
[2022-06-30] MEDS: Insulin Lispro 100 UNIT/ML 3 ML VIAL SUBCUT ×4 (08:30→19:41)
[2022-06-30] MEDS: Acetaminophen 325 MG TABLET 650 MG PO (08:30)
[2022-06-30] MEDS: hydrALAZINE HCl 25 MG TABLET PO ×2 (08:31→19:41)
[2022-06-30] MEDS: Venlafaxine HCl ER 150 MG CAP.ER.24H PO (08:31)
[2022-06-30] MEDS: polyethylene glycoL 3350 17 GM POWD.PACK PO (08:36)
[2022-06-30 11:35] LABS: Glucose, Whole Blood 230 mg/dL (60-115)
[2022-06-30 12:00] VITALS: BP 130/67; PULSE 69; RESP 18; TEMP 36.6
[2022-06-30] MEDS: cefTRIAXone sodium 1 GM in 0.9 % Sodium Chloride 50 ML IV (12:35)
--- NOTE | 2022-06-30 12:42 | P.PNIM_ITS ---
Subjective Subjective Date of Service: 06/30/22 Interval History: back pain controlled denies urinary difficulty Review of Systems Review of Systems: Yes all other systems are reviewed and are negative Physical Exam Vital Signs: Vital Signs: Last Vital Signs Temp 97.8 F 06/30/22 08:00 Pulse 83 06/30/22 08:00 Resp 18 06/30/22 08:00 BP 149/90 H 06/30/22 08:00 Pulse Ox 94 06/30/22 08:00 O2 Del Method 06/30/22 08:00 BMI result Body Mass Index 24.0 Gen: in no acute distress HEENT: sclera anicteric, moist mucus membranes Neck: supple Lungs: clear to auscultation bilaterally Heart: regular rate and rhythm, no murmurs Abd: soft, non-tender, non-distended Back: mid-lumber tenderness Ext: no edema Skin: warm/well-perfused Neuro: alert and oriented x3, L hemiparesis Psych: appropriate affect Objective Data Active Medications Acetaminophen (Acetaminophen 325 Mg Tablet) 650 mg PO Q6H PRN PRN Reason: Pain, Mild (Pain Scale 1-3) Last Admin: 06/30/22 08:30 Dose: 650 mg Documented By: SHOSHANA Aspirin (Aspirin Enteric Coated 81 Mg Tablet.) 81 mg PO DAILY [facility] Last Admin: 06/30/22 08:30 Dose: 81 mg Documented By: SHOSHANA Atenolol (Atenolol 50 Mg Tablet) 50 mg PO DAILY [facility]; Protocol Last Admin: 06/30/22 08:30 Dose: 50 mg Documented By: SHOSHANA Enoxaparin Sodium (Enoxaparin Sodium 40 Mg/0.4 Ml Syringe) 40 mg SUBCUT Q24H [facility] Last Admin: 06/29/22 17:12 Dose: 40 mg Documented By: TISH Hydralazine HCl (Hydralazine Hcl 25 Mg Tablet) 25 mg PO BID [facility]; Protocol Last Admin: 06/30/22 08:31 Dose: 25 mg Documented By: SHOSHANA Ceftriaxone Sodium 1 gm/ (Sodium Chloride) 50 mls @ 100 mls/hr IV Q24H [facility] Last Admin: 06/30/22 12:35 Dose: 100 mls/hr Documented By: ISIDROEMA Insulin Human Lispro (Insulin Lispro 100 Unit/Ml 3 Ml Vial) 0 unit SUBCUT QIDACHS [facility]; Protocol Last Admin: 06/30/22 11:54 Dose: 4 unit Documented By: SHOSHANA Lidocaine (Lidocaine 4 % Patch Adh..Patch) 1 patch TRANSDERMA DAILY [facility]; Protocol Last Admin: 06/30/22 09:48 Dose: Not Given Documented By: SHOSHANA Non-Admin Reason: Patient Refused Lorazepam (Lorazepam 0.5 Mg Tablet) 0.5 mg PO BID PRN PRN Reason: anxiety Olanzapine (Olanzapine 10 Mg Tablet) 20 mg PO BEDTIME [facility] Last Admin: 06/29/22 22:00 Dose: 20 mg Documented By: SANFORD Oxycodone HCl (Oxycodone Hcl Immed Release 5 Mg Tablet) 5 mg PO Q6H PRN PRN Reason: Pain, Severe (Pain Scale 7-10) Last Admin: 06/30/22 08:30 Dose: 5 mg Documented By: SHOSHANA Polyethylene Glycol (Polyethylene Glycol 3350 17 Gm Powd.Pack) 17 gm PO DAILY [facility] Last Admin: 06/30/22 08:36 Dose: 17 gm Documented By: SHOSHANA Pravastatin Sodium (Pravastatin Sodium 20 Mg Tablet) 20 mg PO BEDTIME [facility] Last Admin: 06/29/22 22:00 Dose: 20 mg Documented By: SANFORD Sodium Chloride (0.9 % Sodium Chloride Flush 3 Ml Syringe) 3 ml IVFLUSH QSHIFT [facility] Last Admin: 06/30/22 07:36 Dose: Not Given Documented By: SHOSHANA Non-Admin Reason: IV Running Venlafaxine HCl (Venlafaxine Hcl Er 150 Mg Cap.Er.24h) 150 mg PO DAILY [facility] Last Admin: 06/30/22 08:31 Dose: 150 mg Documented By: SHOSHANA Labs CBC & Chem 7: 06/30/22 06:08 06/30/22 06:08 Labs: Laboratory Results - last 24 hr 06/29/22 06/29/22 06/29/22 11:51 11:54 12:33 MCV MCH MCHC RDW Plt Count MPV Absolute Nucleated RBC Nucleated RBC % (auto) Anion Gap 21 H Estim Creat Clear Calc 56.0 Estimated GFR > 60 POC Glucose Random Glucose 222 H Calcium 8.0 L D Magnesium 1.9 Total Bilirubin 0.9 AST 12 ALT 8 Alkaline Phosphatase 103 Total Creatine Kinase 252 H Troponin I High Sens Total Protein 5.7 L Albumin 3.1 L Urine Color Yellow Urine Appearance Clear Urine pH 5.0 Ur Specific [place] 1.025 Urine Protein >=1000 (4+) H Urine Glucose (UA) 500 H Urine Ketones 80 Urine Blood Trace H Urine Nitrite Negative Ur Leukocyte Esterase Small (1+) H Urine RBC 0-2 Urine WBC >50 H Ur Squamous Epith Cells 0-2 Urine Bacteria 2+ Hyaline Casts 3-5 Influenza Type A (PCR) NEGATIVE Influenza Type B (PCR) NEGATIVE RSV RNA Qual (PCR) NEGATIVE SARS-CoV-2 RNA (RT-PCR) NEGATIVE 06/29/22 06/29/22 06/29/22 16:07 17:56 20:53 MCV MCH MCHC RDW Plt Count MPV Absolute Nucleated RBC Nucleated RBC % (auto) Anion Gap Estim Creat Clear Calc Estimated GFR POC Glucose 155 H 216 H Random Glucose Calcium Magnesium Total Bilirubin AST ALT Alkaline Phosphatase Total Creatine Kinase Troponin I High Sens 22.7 Total Protein Albumin Urine Color Urine Appearance Urine pH Ur Specific [place] Urine Protein Urine Glucose (UA) Urine Ketones Urine Blood Urine Nitrite Ur Leukocyte Esterase Urine RBC Urine WBC Ur Squamous Epith Cells Urine Bacteria Hyaline Casts Influenza Type A (PCR) Influenza Type B (PCR) RSV RNA Qual (PCR) SARS-CoV-2 RNA (RT-PCR) 06/29/22 06/30/22 06/30/22 21:31 06:08 06:08 MCV 88.0 MCH 29.0 MCHC 33.0 RDW 14.4 Plt Count 127 L MPV 9.6 Absolute Nucleated RBC 0.000 Nucleated RBC % (auto) 0.0 Anion Gap 16 Estim Creat Clear Calc 71.0 Estimated GFR > 60 POC Glucose 239 H Random Glucose 183 H Calcium 8.0 L Magnesium Total Bilirubin AST ALT Alkaline Phosphatase Total Creatine Kinase Troponin I High Sens Total Protein Albumin Urine Color Urine Appearance Urine pH Ur Specific [place] Urine Protein Urine Glucose (UA) Urine Ketones Urine Blood Urine Nitrite Ur Leukocyte Esterase Urine RBC Urine WBC Ur Squamous Epith Cells Urine Bacteria Hyaline Casts Influenza Type A (PCR) Influenza Type B (PCR) RSV RNA Qual (PCR) SARS-CoV-2 RNA (RT-PCR) 06/30/22 06/30/22 07:13 11:18 MCV MCH MCHC RDW Plt Count MPV Absolute Nucleated RBC Nucleated RBC % (auto) Anion Gap Estim Creat Clear Calc Estimated GFR POC Glucose 178 H 230 H Random Glucose Calcium Magnesium Total Bilirubin AST ALT Alkaline Phosphatase Total Creatine Kinase Troponin I High Sens Total Protein Albumin Urine Color Urine Appearance Urine pH Ur Specific [place] Urine Protein Urine Glucose (UA) Urine Ketones Urine Blood Urine Nitrite Ur Leukocyte Esterase Urine RBC Urine WBC Ur Squamous Epith Cells Urine Bacteria Hyaline Casts Influenza Type A (PCR) Influenza Type B (PCR) RSV RNA Qual (PCR) SARS-CoV-2 RNA (RT-PCR) Microbiology Microbiology Results: Microbiology 06/29/22 00:00 Urine Culture - Preliminary Urine clean catch - Urine rebollar top Gram negative lionel Assessment and Plan (1) L3 vertebral fracture: Status: Acute (2) UTI (urinary tract infection): Status: Acute Plan d#2 66yo M with DM2, CAD, COPD, CVA with L hemiparesis presenting with back pain, admitted for pain control from L3 traumatic compression fracture, UTI, and stercoral colitis # L3 traumatic compression fx - continue oral analgesics, add topical lidocaine, PT consult # UTI - ceftriaxone d#2, follow UCx which is growing GNR + WBCs which are coming down # constipation/stercoral colitis - bowel regimen # DM2 - hold GPZ, give correction-dose lispro # HTN - continue atenolol, hydralazine # HLD - continue statin # mood disorder - continue olanzapine + venlafaxine + lorazepam # VTE ppx: LMWH In my clinical judgment, the patient requires continued inpatient hospitalization for the following reasons: IV ABX, pain contrl Quality Stroke Does the patient have a stroke diagnosis?: No VTE Prior VTE?: No VTE Risk Level:: Medical - moderate - high VTE Device Contraindication: Treatment Not Indicated VTE Drug Contraindication: N/A - Med Ordered
[2022-06-30] MEDS: Sennosides/Docusate Sodium TABLET 2 TAB PO ×2 (15:07→19:40)
[2022-06-30] MEDS: 0.9 % Sodium Chloride Flush 3 ML SYRINGE IVFLUSH ×2 (15:07→19:41)
[2022-06-30] MEDS: Enoxaparin Sodium 40 MG/0.4 ML SYRINGE SUBCUT (15:07)
[2022-06-30 15:56] VITALS: BP 135/64; PULSE 66; RESP 18; TEMP 36.6; O2SAT 94
[2022-06-30 16:03] LABS: Glucose, Whole Blood 176 mg/dL (60-115)
[2022-06-30 19:11] VITALS: BP 120/64; PULSE 69; RESP 18; TEMP 36.2; O2SAT 94
[2022-06-30 19:28] LABS: Glucose, Whole Blood 182 mg/dL (60-115)
[2022-06-30] MEDS: OLANZapine 10 MG TABLET 20 MG PO (19:40)
[2022-06-30] MEDS: Pravastatin Sodium 20 MG TABLET PO (19:41)
[2022-06-30 23:34] VITALS: BP 140/70; PULSE 77; RESP 18; TEMP 36.1; O2SAT 94
[2022-07-01] MEDS: Acetaminophen 325 MG TABLET 650 MG PO ×2 (03:26→09:16)
[2022-07-01] MEDS: oxyCODONE HCl Immed Release 5 MG TABLET PO ×2 (03:27→09:16)
[2022-07-01 04:00] VITALS: BP 132/60; PULSE 78; RESP 18; TEMP 36.1; O2SAT 93
[2022-07-01 06:13] LABS: Hematocrit 32.1 % (42.0-52.0); Hemoglobin 10.9 g/dl (14.0-18.0); Mean Corpuscular Hemoglobin 30.3 pg (27.0-33.0); Mean Corpuscular Volume 89.2 fL (80.0-98.0); Mean Platelet Volume 9.5 fL (9.4-12.4); Platelet Count 125 X10*3/uL (160-400); Red Cell Distribution Width 14.5 % (11.0-16.0); White Blood Count 11.2 X10*3/uL (4.8-10.8)
[2022-07-01 06:35] LABS: Anion Gap 18 (12-20); Blood Urea Nitrogen 15 mg/dL (9-16); Calcium 7.7 mg/dL (8.4-10.2); Carbon Dioxide 19 mmol/L (22-29); Chloride 107 mmol/L (96-108); Creatinine Clr Calc Pharmacy 83.6; Estimated Glomerular Filt Rate > 60; Glucose Random 108 mg/dL (60-115); Potassium 3.6 mmol/L (3.3-5.1); Sodium 140 mmol/L (135-145)
[2022-07-01 07:31] VITALS: BP 142/67; PULSE 73; RESP 18; TEMP 36.3; O2SAT 93
[2022-07-01 08:19] LABS: Glucose, Whole Blood 104 mg/dL (60-115)
[2022-07-01] MEDS: Aspirin Enteric Coated 81 MG TABLET.DR PO (09:16)
[2022-07-01] MEDS: polyethylene glycoL 3350 17 GM POWD.PACK PO (09:16)
[2022-07-01] MEDS: Lidocaine 4 % Patch ADH..PATCH 1 PATCH TRANSDERMA (09:16)
[2022-07-01] MEDS: Venlafaxine HCl ER 150 MG CAP.ER.24H PO (09:16)
[2022-07-01] MEDS: atenoloL 50 MG TABLET PO (09:16)
[2022-07-01] MEDS: Sennosides/Docusate Sodium TABLET 2 TAB PO ×2 (09:16→20:41)
[2022-07-01] MEDS: 0.9 % Sodium Chloride Flush 3 ML SYRINGE IVFLUSH ×3 (09:17→20:41)
[2022-07-01] MEDS: hydrALAZINE HCl 25 MG TABLET PO ×2 (09:17→20:41)
--- NOTE | 2022-07-01 10:08 | PC.NURSE ---
pt complaint of back pain. medicated per mar with oxy, tylenol, and lidocaine patch placed. pt now eating breakfast comfortably.
--- NOTE | 2022-07-01 10:24 | P.PNIM_ITS ---
Subjective Subjective Date of Service: 07/01/22 Interval History: back pain controlled at rest awaiting PT eval no fever/chills Review of Systems Review of Systems: Yes all other systems are reviewed and are negative Physical Exam Vital Signs: Vital Signs: Last Vital Signs Temp 97.4 F 07/01/22 07:31 Pulse 73 07/01/22 07:31 Resp 18 07/01/22 07:31 BP 142/67 H 07/01/22 07:31 Pulse Ox 93 07/01/22 07:31 O2 Del Method 07/01/22 07:31 BMI result Body Mass Index 24.0 Gen: in no acute distress HEENT: sclera anicteric, moist mucus membranes Neck: supple Lungs: clear to auscultation bilaterally Heart: regular rate and rhythm, no murmurs Abd: soft, non-tender, non-distended Back: mid-lumber tenderness Ext: no edema Skin: warm/well-perfused Neuro: alert and oriented x3, L hemiparesis Psych: appropriate affect Objective Data Active Medications Acetaminophen (Acetaminophen 325 Mg Tablet) 650 mg PO Q6H PRN PRN Reason: Pain, Mild (Pain Scale 1-3) Last Admin: 07/01/22 09:16 Dose: 650 mg Documented By: ISIDROEMA Aspirin (Aspirin Enteric Coated 81 Mg Tablet.) 81 mg PO DAILY [facility] Last Admin: 07/01/22 09:16 Dose: 81 mg Documented By: SHOSHANA Atenolol (Atenolol 50 Mg Tablet) 50 mg PO DAILY [facility]; Protocol Last Admin: 07/01/22 09:16 Dose: 50 mg Documented By: ISIDROEMA Enoxaparin Sodium (Enoxaparin Sodium 40 Mg/0.4 Ml Syringe) 40 mg SUBCUT Q24H [facility] Last Admin: 06/30/22 15:07 Dose: 40 mg Documented By: ISIDROEMA Hydralazine HCl (Hydralazine Hcl 25 Mg Tablet) 25 mg PO BID [facility]; Protocol Last Admin: 07/01/22 09:17 Dose: 25 mg Documented By: ISIDROEMA Ceftriaxone Sodium 1 gm/ (Sodium Chloride) 50 mls @ 100 mls/hr IV Q24H [facility] Last Infusion: 06/30/22 13:07 Dose: 0 mls/hr Documented By: ISIDROEMA Insulin Human Lispro (Insulin Lispro 100 Unit/Ml 3 Ml Vial) 0 unit SUBCUT QIDACHS [facility]; Protocol Last Admin: 07/01/22 08:21 Dose: Not Given Documented By: SHOSHANA Non-Admin Reason: No Insulin Coverage Lidocaine (Lidocaine 4 % Patch Adh..Patch) 1 patch TRANSDERMA DAILY [facility]; Protocol Last Admin: 07/01/22 09:16 Dose: 1 patch Documented By: SHOSHANA Lorazepam (Lorazepam 0.5 Mg Tablet) 0.5 mg PO BID PRN PRN Reason: anxiety Olanzapine (Olanzapine 10 Mg Tablet) 20 mg PO BEDTIME [facility] Last Admin: 06/30/22 19:40 Dose: 20 mg Documented By: TIMA Oxycodone HCl (Oxycodone Hcl Immed Release 5 Mg Tablet) 5 mg PO Q6H PRN PRN Reason: Pain, Severe (Pain Scale 7-10) Last Admin: 07/01/22 09:16 Dose: 5 mg Documented By: SHOSHANA Polyethylene Glycol (Polyethylene Glycol 3350 17 Gm Powd.Pack) 17 gm PO DAILY [facility] Last Admin: 07/01/22 09:16 Dose: 17 gm Documented By: SHOSHANA Pravastatin Sodium (Pravastatin Sodium 20 Mg Tablet) 20 mg PO BEDTIME [facility] Last Admin: 06/30/22 19:41 Dose: 20 mg Documented By: TIMA Senna/Docusate Sodium (Sennosides/Docusate Sodium Tablet) 2 tab PO BID [facility] Last Admin: 07/01/22 09:16 Dose: 2 tab Documented By: SHOSHANA Sodium Chloride (0.9 % Sodium Chloride Flush 3 Ml Syringe) 3 ml IVFLUSH QSHIFT [facility] Last Admin: 07/01/22 09:17 Dose: 3 ml Documented By: SHOSHANA Venlafaxine HCl (Venlafaxine Hcl Er 150 Mg Cap.Er.24h) 150 mg PO DAILY [facility] Last Admin: 07/01/22 09:16 Dose: 150 mg Documented By: SHOSHANA Labs CBC & Chem 7: 07/01/22 05:34 07/01/22 05:34 Labs: Laboratory Results - last 24 hr 06/30/22 06/30/22 06/30/22 11:18 15:58 19:00 MCV MCH MCHC RDW Plt Count MPV Absolute Nucleated RBC Nucleated RBC % (auto) Anion Gap Estim Creat Clear Calc Estimated GFR POC Glucose 230 H 176 H 182 H Random Glucose Calcium 07/01/22 07/01/22 07/01/22 05:34 05:34 07:34 MCV 89.2 MCH 30.3 MCHC 34.0 RDW 14.5 Plt Count 125 L MPV 9.5 Absolute Nucleated RBC 0.000 Nucleated RBC % (auto) 0.0 Anion Gap 18 Estim Creat Clear Calc 83.6 Estimated GFR > 60 POC Glucose 104 Random Glucose 108 D Calcium 7.7 L Microbiology Microbiology Results: Microbiology 06/29/22 00:00 Urine Culture - Final Urine clean catch - Urine rebollar top Escherichia coli 06/29/22 12:33 Blood Culture - Preliminary Blood - Venous No growth after 24 hours. 06/29/22 12:07 Blood Culture - Preliminary Blood - Venous No growth after 24 hours. Assessment and Plan (1) L3 vertebral fracture: Status: Acute (2) UTI (urinary tract infection): Status: Acute Plan d#3 66yo M with DM2, CAD, COPD, CVA with L hemiparesis presenting with back pain, admitted for pain control from L3 traumatic compression fracture, UTI, and stercoral colitis # L3 traumatic compression fx - continue oral analgesics + topical lidocaine, PT evaluation pending # UTI, mathew sensitive E. coli - ceftriaxone d#3, can change to cefuroxime PO upon discharge - WBCs are coming down appropriately # constipation/stercoral colitis - bowel regimen # DM2 - hold GPZ, give correction-dose lispro # HTN - continue atenolol, hydralazine # HLD - continue statin # mood disorder - continue olanzapine + venlafaxine + lorazepam # VTE ppx: LMWH In my clinical judgment, the patient requires continued inpatient ho spitalization for the following reasons: IV ABX, pain control, disposition planning Quality Stroke Does the patient have a stroke diagnosis?: No VTE Prior VTE?: No VTE Risk Level:: Medical - moderate - high VTE Device Contraindication: Treatment Not Indicated VTE Drug Contraindication: N/A - Med Ordered
[2022-07-01 11:38] LABS: Glucose, Whole Blood 163 mg/dL (60-115)
[2022-07-01] MEDS: Lactulose 20 GM/30 ML SOLUTION PO ×2 (11:52→20:41)
[2022-07-01] MEDS: Insulin Lispro 100 UNIT/ML 3 ML VIAL SUBCUT (11:52)
[2022-07-01 12:00] VITALS: BP 143/72; PULSE 62; RESP 16; TEMP 36.2; O2SAT 95
[2022-07-01] MEDS: cefTRIAXone sodium 1 GM in 0.9 % Sodium Chloride 50 ML IV (13:23)
[2022-07-01 15:58] VITALS: BP 140/80; PULSE 74; RESP 18; TEMP 36.3; O2SAT 94
[2022-07-01 16:08] LABS: Glucose, Whole Blood 138 mg/dL (60-115)
[2022-07-01] MEDS: Enoxaparin Sodium 40 MG/0.4 ML SYRINGE SUBCUT (16:35)
[2022-07-01 19:15] VITALS: BP 140/73; PULSE 71; RESP 18; TEMP 36.6; O2SAT 94
[2022-07-01 19:47] LABS: Glucose, Whole Blood 147 mg/dL (60-115)
[2022-07-01] MEDS: Pravastatin Sodium 20 MG TABLET PO (20:41)
[2022-07-01] MEDS: OLANZapine 10 MG TABLET 20 MG PO (20:41)
[2022-07-02] VITALS: BP 156/76; PULSE 73; RESP 18; TEMP 36.3; O2SAT 94
[2022-07-02 04:00] VITALS: BP 150/82; PULSE 83; RESP 18; TEMP 36.3; O2SAT 93
[2022-07-02 07:25] VITALS: BP 158/78; PULSE 83; RESP 18; TEMP 37; O2SAT 94
[2022-07-02 07:52] LABS: Glucose, Whole Blood 149 mg/dL (60-115)
[2022-07-02] MEDS: hydrALAZINE HCl 25 MG TABLET PO ×2 (08:46→21:11)
[2022-07-02] MEDS: Sennosides/Docusate Sodium TABLET 2 TAB PO ×2 (08:47→21:11)
[2022-07-02] MEDS: atenoloL 50 MG TABLET PO (08:47)
[2022-07-02] MEDS: Lidocaine 4 % Patch ADH..PATCH 1 PATCH TRANSDERMA (08:47)
[2022-07-02] MEDS: Venlafaxine HCl ER 150 MG CAP.ER.24H PO (08:47)
[2022-07-02] MEDS: Aspirin Enteric Coated 81 MG TABLET.DR PO (08:47)
[2022-07-02] MEDS: 0.9 % Sodium Chloride Flush 3 ML SYRINGE IVFLUSH ×2 (08:49→14:39)
[2022-07-02] MEDS: polyethylene glycoL 3350 17 GM POWD.PACK PO (08:49)
[2022-07-02] MEDS: Lactulose 20 GM/30 ML SOLUTION PO ×2 (08:49→21:12)
[2022-07-02 11:15] VITALS: BP 138/76; PULSE 81; RESP 18; TEMP 36.8; O2SAT 96
[2022-07-02 11:48] LABS: Glucose, Whole Blood 206 mg/dL (60-115)
[2022-07-02] MEDS: Insulin Lispro 100 UNIT/ML 3 ML VIAL SUBCUT ×2 (12:07→17:38)
[2022-07-02] MEDS: cefTRIAXone sodium 1 GM in 0.9 % Sodium Chloride 50 ML IV (14:38)
--- NOTE | 2022-07-02 14:39 | MHC.CM.PN ---
Savana asks for [facility] to be first choice. facility made aware. patient is ready for dc. case management following for a response
--- NOTE | 2022-07-02 15:29 | MHC.CM.PN ---
Addendum entered by Meg Amanda, MIHCELLE 07/02/22 15:47: [facility] CAN OFFER A BED Saturday. MADE AWARE Original Note: JONI STATES THAT SHE DOES NOT WANT PATIENT AT [facility] IS NOT OFFERING. [facility] CANNOT OFFER. CM STILL ATTEMPTING TO SECURE A BED
[2022-07-02 15:30] LABS: COVID-19 Test Negative (Negative); IDNOW Serial# 9DB6401D
[2022-07-02 15:34] VITALS: BP 138/81; PULSE 73; RESP 18; TEMP 36.3; O2SAT 96
--- NOTE | 2022-07-02 15:54 | P.PNIM_ITS ---
Subjective Subjective Date of Service: 07/02/22 Interval History: back pain worse with moving, controlled at rest PT recommends STR Review of Systems Review of Systems: Yes all other systems are reviewed and are negative Physical Exam Vital Signs: Vital Signs: Last Vital Signs Temp 97.3 F 07/02/22 15:34 Pulse 73 07/02/22 15:34 Resp 18 07/02/22 15:34 BP 138/81 07/02/22 15:34 Pulse Ox 96 07/02/22 15:34 O2 Del Method 07/02/22 15:34 BMI result Body Mass Index 24.0 Gen: in no acute distress HEENT: sclera anicteric, moist mucus membranes Neck: supple Lungs: clear to auscultation bilaterally Heart: regular rate and rhythm, no murmurs Abd: soft, non-tender, non-distended Back: mid-lumber tenderness Ext: no edema Skin: warm/well-perfused Neuro: alert and oriented x3, L hemiparesis Psych: appropriate affect Objective Data Active Medications Acetaminophen (Acetaminophen 325 Mg Tablet) 650 mg PO Q6H PRN PRN Reason: Pain, Mild (Pain Scale 1-3) Last Admin: 07/01/22 09:16 Dose: 650 mg Documented By: SHOSHANA Aspirin (Aspirin Enteric Coated 81 Mg Tablet.) 81 mg PO DAILY [facility] Last Admin: 07/02/22 08:47 Dose: 81 mg Documented By: MELISSA Atenolol (Atenolol 50 Mg Tablet) 50 mg PO DAILY [facility]; Protocol Last Admin: 07/02/22 08:47 Dose: 50 mg Documented By: MELISSA Enoxaparin Sodium (Enoxaparin Sodium 40 Mg/0.4 Ml Syringe) 40 mg SUBCUT Q24H [facility] Last Admin: 07/01/22 16:35 Dose: 40 mg Documented By: SHOSHANA Hydralazine HCl (Hydralazine Hcl 25 Mg Tablet) 25 mg PO BID [facility]; Protocol Last Admin: 07/02/22 08:46 Dose: 25 mg Documented By: MELISSA Ceftriaxone Sodium 1 gm/ (Sodium Chloride) 50 mls @ 100 mls/hr IV Q24H [facility] Last Infusion: 07/02/22 15:10 Dose: 0 mls/hr Documented By: MELISSA Insulin Human Lispro (Insulin Lispro 100 Unit/Ml 3 Ml Vial) 0 unit SUBCUT QIDACHS [facility]; Protocol Last Admin: 07/02/22 12:07 Dose: 4 unit Documented By: MELISSA Lactulose (Lactulose 20 Gm/30 Ml Solution) 20 gm PO BID [facility] Last Admin: 07/02/22 08:49 Dose: 20 gm Documented By: MELISSA Lidocaine (Lidocaine 4 % Patch Adh..Patch) 1 patch TRANSDERMA DAILY [facility]; Protocol Last Admin: 07/02/22 08:47 Dose: 1 patch Documented By: MELISSA Lorazepam (Lorazepam 0.5 Mg Tablet) 0.5 mg PO BID PRN PRN Reason: anxiety Olanzapine (Olanzapine 10 Mg Tablet) 20 mg PO BEDTIME [facility] Last Admin: 07/01/22 20:41 Dose: 20 mg Documented By: CHRISTOPHER Oxycodone HCl (Oxycodone Hcl Immed Release 5 Mg Tablet) 5 mg PO Q6H PRN PRN Reason: Pain, Severe (Pain Scale 7-10) Last Admin: 07/01/22 09:16 Dose: 5 mg Documented By: SHOSHANA Polyethylene Glycol (Polyethylene Glycol 3350 17 Gm Powd.Pack) 17 gm PO DAILY [facility] Last Admin: 07/02/22 08:49 Dose: 17 gm Documented By: MELISSA Pravastatin Sodium (Pravastatin Sodium 20 Mg Tablet) 20 mg PO BEDTIME [facility] Last Admin: 07/01/22 20:41 Dose: 20 mg Documented By: CHRISTOPHER Senna/Docusate Sodium (Sennosides/Docusate Sodium Tablet) 2 tab PO BID [facility] Last Admin: 07/02/22 08:47 Dose: 2 tab Documented By: MELISSA Sodium Chloride (0.9 % Sodium Chloride Flush 3 Ml Syringe) 3 ml IVFLUSH QSHIFT [facility] Last Admin: 07/02/22 14:39 Dose: 3 ml Documented By: MELISSA Venlafaxine HCl (Venlafaxine Hcl Er 150 Mg Cap.Er.24h) 150 mg PO DAILY [facility] Last Admin: 07/02/22 08:47 Dose: 150 mg Documented By: MELISSA Labs CBC & Chem 7: 07/01/22 05:34 07/01/22 05:34 Labs: Laboratory Results - last 24 hr 07/01/22 07/01/22 07/02/22 15:59 19:17 07:23 POC Glucose 138 H 147 H 149 H COVID-19 ([facility]) COVID-19 Clin Com 07/02/22 07/02/22 11:13 14:58 POC Glucose 206 H COVID-19 ([facility]) Negative COVID-19 Clin Com See Note Microbiology Microbiology Results: Microbiology 06/29/22 12:33 Blood Culture - Preliminary Blood - Venous No growth after 48 hours. 06/29/22 12:07 Blood Culture - Preliminary Blood - Venous No growth after 48 hours. Assessment and Plan (1) L3 vertebral fracture: Status: Acute (2) UTI (urinary tract infection): Status: Acute Plan d#4 66yo M with DM2, CAD, COPD, CVA with L hemiparesis presenting with back pain, admitted for pain control from L3 traumatic compression fracture, UTI, and stercoral colitis # L3 traumatic compression fx - continue oral analgesics + topical lidocaine, PT evaluation done- STR placement pending # UTI, mathew sensitive E. coli - ceftriaxone d#11/30, can change to cefuroxime PO upon discharge - WBCs came down appopriately # constipation/stercoral colitis - continue bowel regimen, still awaiting BM # DM2 - hold GPZ, give correction-dose lispro # HTN - continue atenolol, hydralazine # HLD - continue statin # mood disorder - continue olanzapine + venlafaxine + lorazepam # VTE ppx: LMWH # dispo: awaiting STR placement In my clinical judgment, the patient requires continued inpatient hospitalization for the following reasons: placement Quality Stroke Does the patient have a stroke diagnosis?: No VTE Prior VTE?: No VTE Risk Level:: Medical - moderate - high VTE Device Contraindication: Treatment Not Indicated VTE Drug Contraindication: N/A - Med Ordered
[2022-07-02 16:37] LABS: Glucose, Whole Blood 161 mg/dL (60-115)
[2022-07-02] MEDS: Enoxaparin Sodium 40 MG/0.4 ML SYRINGE SUBCUT (17:38)
[2022-07-02 19:18] VITALS: BP 130/81; PULSE 71; RESP 17; TEMP 36.3; O2SAT 95
[2022-07-02 19:47] LABS: Glucose, Whole Blood 124 mg/dL (60-115)
[2022-07-02] MEDS: Pravastatin Sodium 20 MG TABLET PO (21:11)
[2022-07-02] MEDS: OLANZapine 10 MG TABLET 20 MG PO (21:11)
[2022-07-03] MEDS: 0.9 % Sodium Chloride Flush 3 ML SYRINGE IVFLUSH ×2 (00:01→09:41)
[2022-07-03 03:40] VITALS: BP 154/67; PULSE 74; RESP 16; TEMP 36; O2SAT 93
[2022-07-03 07:34] VITALS: BP 157/69; PULSE 82; RESP 18; TEMP 36.3; O2SAT 94
[2022-07-03 07:48] LABS: Glucose, Whole Blood 133 mg/dL (60-115)
--- NOTE | 2022-07-03 08:32 | HO.PM.IMPN ---
Subjective Subjective Date of Service: 07/03/22 Interval History: Follow up compression fx back pain worse with moving, controlled at rest PT recommends STR Review of Systems Review of Systems: Yes all other systems are reviewed and are negative Physical Exam Vital Signs: Vital Signs: Last Vital Signs Temp 97.4 F 07/03/22 07:34 Pulse 82 07/03/22 07:34 Resp 18 07/03/22 07:34 BP 157/69 H 07/03/22 07:34 Pulse Ox 94 07/03/22 07:34 O2 Del Method 07/03/22 07:34 BMI result Body Mass Index 24.0 Appearing in no acute distress lung sounds are clear to auscultation heart regular rate rhythm, clear S1, S2 positive bowel sounds, abdomen is soft, nontender neuro patient is alert x3, no focal deficits Objective Data Active Medications Acetaminophen (Acetaminophen 325 Mg Tablet) 650 mg PO Q6H PRN PRN Reason: Pain, Mild (Pain Scale 1-3) Last Admin: 07/01/22 09:16 Dose: 650 mg Documented By: COTEMA Aspirin (Aspirin Enteric Coated 81 Mg Tablet.Dr) 81 mg PO DAILY [facility] Last Admin: 07/02/22 08:47 Dose: 81 mg Documented By: MELISSA Atenolol (Atenolol 50 Mg Tablet) 50 mg PO DAILY [facility]; Protocol Last Admin: 07/02/22 08:47 Dose: 50 mg Documented By: MELISSA Enoxaparin Sodium (Enoxaparin Sodium 40 Mg/0.4 Ml Syringe) 40 mg SUBCUT Q24H [facility] Last Admin: 07/02/22 17:38 Dose: 40 mg Documented By: MELISSA Hydralazine HCl (Hydralazine Hcl 25 Mg Tablet) 25 mg PO BID [facility]; Protocol Last Admin: 07/02/22 21:11 Dose: 25 mg Documented By: PARAG Ceftriaxone Sodium 1 gm/ (Sodium Chloride) 50 mls @ 100 mls/hr IV Q24H [facility] Last Infusion: 07/02/22 15:10 Dose: 0 mls/hr Documented By: MELISSA Insulin Human Lispro (Insulin Lispro 100 Unit/Ml 3 Ml Vial) 0 unit SUBCUT QIDACHS [facility]; Protocol Last Admin: 07/03/22 08:18 Dose: Not Given Documented By: MELISSA Non-Admin Reason: No Insulin Coverage Lactulose (Lactulose 20 Gm/30 Ml Solution) 20 gm PO BID [facility] Last Admin: 07/02/22 21:12 Dose: 20 gm Documented By: PARAG Lidocaine (Lidocaine 4 % Patch Adh..Patch) 1 patch TRANSDERMA DAILY [facility]; Protocol Last Admin: 07/02/22 08:47 Dose: 1 patch Documented By: MELISSA Lorazepam (Lorazepam 0.5 Mg Tablet) 0.5 mg PO BID PRN PRN Reason: anxiety Olanzapine (Olanzapine 10 Mg Tablet) 20 mg PO BEDTIME [facility] Last Admin: 07/02/22 21:11 Dose: 20 mg Documented By: PARAG Oxycodone HCl (Oxycodone Hcl Immed Release 5 Mg Tablet) 5 mg PO Q6H PRN PRN Reason: Pain, Severe (Pain Scale 7-10) Last Admin: 07/01/22 09:16 Dose: 5 mg Documented By: COTEMA Polyethylene Glycol (Polyethylene Glycol 3350 17 Gm Powd.Pack) 17 gm PO DAILY [facility] Last Admin: 07/02/22 08:49 Dose: 17 gm Documented By: MELISSA Pravastatin Sodium (Pravastatin Sodium 20 Mg Tablet) 20 mg PO BEDTIME [facility] Last Admin: 07/02/22 21:11 Dose: 20 mg Documented By: PARAG Senna/Docusate Sodium (Sennosides/Docusate Sodium Tablet) 2 tab PO BID [facility] Last Admin: 07/02/22 21:11 Dose: 2 tab Documented By: PARAG Sodium Chloride (0.9 % Sodium Chloride Flush 3 Ml Syringe) 3 ml IVFLUSH QSHIFT [facility] Last Admin: 07/03/22 00:01 Dose: 3 ml Documented By: JOSE EDUARDO Venlafaxine HCl (Venlafaxine Hcl Er 150 Mg Cap.Er.24h) 150 mg PO DAILY [facility] Last Admin: 07/02/22 08:47 Dose: 150 mg Documented By: MELISSA Labs CBC & Chem 7: 07/01/22 05:34 07/01/22 05:34 Labs: Laboratory Results - last 24 hr 07/02/22 07/02/22 07/02/22 11:13 14:58 15:38 POC Glucose 206 H 161 H COVID-19 ([facility]) Negative COVID-19 Clin Com See Note 07/02/22 07/03/22 19:21 07:33 POC Glucose 124 H 133 H COVID-19 ([facility]) COVID-19 Clin Com Assessment and Plan (1) L3 vertebral fracture: Status: Acute (2) UTI (urinary tract infection): Status: Acute Plan 66yo M with DM2, CAD, COPD, CVA with L hemiparesis presenting with back pain, admitted for pain control from L3 traumatic compression fracture, UTI, and stercoral colitis L3 traumatic compression fx continue oral analgesics + topical lidocaine PT evaluation done STR placement pending UTI, mathew sensitive E. coli ceftriaxone, can change to cefuroxime PO upon discharge onstipation/stercoral colitis continue bowel regimen, still awaiting BM DM2 hold GPZ, give correction-dose lispro HTN continue atenolol, hydralazine HLD continue statin mood disorder continue olanzapine + venlafaxine + lorazepam VTE ppx: LMWH Attending Dr. Mcadams Full code dispo: awaiting STR placement In my clinical judgment, the patient requires continued inpatient hospitalization for the following reasons: placement Quality Stroke Does the patient have a stroke diagnosis?: No VTE Prior VTE?: No VTE Risk Level:: Medical - moderate - high VTE Device Contraindication: Treatment Not Indicated VTE Drug Contraindication: N/A - Med Ordered
--- NOTE | 2022-07-03 08:40 | PM.DS ---
DS: Providers Provider Date of Service: 07/03/22 Date of admission: 06/29/22 16:08 Primary care physician: Kayy Pabon NP Attending physician on discharge: Jose Mcadams Discharging clinician: Rebeca White DS: Diagnosis Discharge Diagnosis (1) L3 vertebral fracture: Status: Acute (2) UTI (urinary tract infection): Status: Acute DS: Summary Hospital Course Hospital Course: History and physical as per admitting provider The patient is a 66 year old male with a PMH as outlined below who presents to the ED with complaints of back pain. History is obtained from the patient and his son who is bedside. The patient reports that several days ago he sustained a mechanical fall resulting in injury to his back. He denies any LOC. States he was coming back to his bed from the kitchen when he lost his balance and fell hitting his back. He reoprts that he has had pain since then but today it became severe and hence the paramedics were called. The son, corroborates the same story with a slight change. The son reports that the patient was talking to his on the phone and reported that his back is bleeding and so she called the EMS. The patient was reportedly covered in feces when he was found. The patient's , who is his primary resident care assistant, has been sick and hospitalized herself for the last 1-2 weeks. During this time, the son checks in on him daily and helps him with his medications. The patient denies any symptoms. No chest pain, sob, cough. Reports not moving his bowel everyday. Ambulates with walker. Patients work up in the ED shows a L3 compression fracture. UA shows pyuria and 2+ bacteria; WBC? count is 23k. Given his falls and these findings, will be admitted for further care . L3 traumatic compression fx continue oral analgesics + topical lidocaine PT evaluation done recommend short-term rehab UTI, mathew sensitive E. coli Treated with Rocephin, changed to Ceftin for 2 more days constipation/stercoral colitis continue bowel regimen DM2 Continue home medications HTN continue atenolol, hydralazine HLD continue statin mood disorder continue olanzapine + venlafaxine + lorazepam Time Spent with Patient Time attestation: Total time spent providing and/or coordinating discharge services: Discharge coordination time: Greater than 30 minutes Quality: Safe Use of Opioids Does Pt have an Active Cancer Diagnosis on the Problem List?: No Quality: Stroke Does the patient have a stroke diagnosis?: No Physical Exam Vital Signs: Vital Signs: Last Vital Signs Temp 97.4 F 07/03/22 07:34 Pulse 82 07/03/22 07:34 Resp 18 07/03/22 07:34 BP 157/69 H 07/03/22 07:34 Pulse Ox 94 07/03/22 07:34 O2 Del Method 07/03/22 07:34 BMI result Body Mass Index 24.0 Appearing in no acute distress head is normocephalic atraumatic eyes pupils are PERRLA sclera is anicteric mouth throat mucous membranes are intact and moist neck is supple no lymphadenopathy, no JVD noted lung sounds are clear to auscultation heart regular rate rhythm, clear S1, S2 positive bowel sounds, abdomen is soft, nontender neuro patient is alert x3, no focal deficits DS: Data Data Completed and Pending Completed studies during hospitalization [Text1]: Procedures Excision of Stomach, Pylorus, Via Natural or Artificial Opening Endoscopic, Diagnostic (07/05/20) Transfusion of Nonautologous Red Blood Cells into Peripheral Vein, Percutaneous Approach (07/05/20) Labs on day of discharge: Laboratory Results - last 24 hr 07/02/22 07/02/22 07/02/22 11:13 14:58 15:38 POC Glucose 206 H 161 H COVID-19 ([facility]) Negative COVID-19 Clin Com See Note 07/02/22 07/03/22 19:21 07:33 POC Glucose 124 H 133 H COVID-19 ([facility]) COVID-19 Clin Com Preliminary micro results at discharge 06/29/22 12:33 Blood Culture - Preliminary Blood - Venous No growth after 48 hours. 06/29/22 12:07 Blood Culture - Preliminary Blood - Venous No growth after 48 hours. Discharge Plan Discharge Anticipated Discharge Date/Time: 07/03/22 08:35 Patient Disposition: Xfer Inpatient Rehab Fac Discharge Diagnosis: L3 traumatic compression fracture UTI Referrals: [facility] [Outside] - 1 Week Kayy Pabon NP [Primary Care Provider] - 1 Week Discharge Medications: New lidocaine [Lidocaine Pain Relief] 4 % Adhesive Patch,Medicated 1 patch transdermal DAILY Qty: 10 0RF Protocol: Apply to: Apply to: L3 polyethylene glycol 3350 17 gram Powder In Packet 17 g PO DAILY Qty: 14 0RF lactulose 20 gram/30 mL Solution 20 g PO BID Qty: 1200 0RF cefuroxime axetil 500 mg tablet 500 mg PO BID Qty: 4 0RF oxycodone 5 mg tablet 5 mg PO Q4H PRN (Reason: pain) Qty: 30 0RF Rx Instructions: Partial Fill upon patient request. Continued venlafaxine 75 mg capsule,extended release 24hr 75 mg PO DAILY venlafaxine 150 mg capsule,extended release 24hr 150 mg PO DAILY hydralazine 25 mg tablet 25 mg PO BID lovastatin 20 mg tablet 20 mg PO BEDTIME atenolol 50 mg tablet 50 mg PO DAILY Qty: 0 0RF aspirin 81 mg tablet,delayed release (DR/EC) 1 tab PO DAILY lorazepam 0.5 mg tablet 1 tab PO BID PRN (Reason: anxiety) olanzapine 20 mg tablet 1 tab PO BEDTIME glipizide 5 mg tablet 1 tab PO BID Discharge Orders: Discharge Order (Routine); Ordered 07/03/22 Ordered By: Rebeca White Diet: Advance to usual diet Activity on Discharge: As tolerated Stand Alone Forms: Patient Portal Discharge page Care Plan Goals: Resolution of pain Health Concerns: L3 traumatic compression fracture UTI Plan of Treatment: Follow-up with primary care provider as needed Take all medications as prescribed Assessment: See discharge summary
--- NOTE | 2022-07-03 09:04 | MHC.CM.PN ---
Addendum entered by Meg Amanda RN 07/03/22 11:44: 1300 [place] [facility] [place] [facility] , Rn, and unit aware of the plan Original Note: AGREES TO [facility] BED OFFER AND PLAN FOR TRANSFER TODAY. TIME TO BE DISCUSSED WITH FACILITY AND RN. [facility] TO TRANSPORT. IMM 07/01 IN CHART JONI : [phone]
[2022-07-03] MEDS: Aspirin Enteric Coated 81 MG TABLET.DR PO (09:40)
[2022-07-03] MEDS: Venlafaxine HCl ER 150 MG CAP.ER.24H PO (09:40)
[2022-07-03] MEDS: Sennosides/Docusate Sodium TABLET 2 TAB PO (09:40)
[2022-07-03] MEDS: atenoloL 50 MG TABLET PO (09:40)
[2022-07-03] MEDS: hydrALAZINE HCl 25 MG TABLET PO (09:40)
[2022-07-03] MEDS: Lidocaine 4 % Patch ADH..PATCH 1 PATCH TRANSDERMA (09:41)
[2022-07-03 11:05] VITALS: BP 157/76; PULSE 73; RESP 18; TEMP 36.3; O2SAT 96
[2022-07-03 11:51] LABS: Glucose, Whole Blood 149 mg/dL (60-115)
== END 2022-07-03 13:24 | DRG 690 ==
LOC: HO.ED 15:31 → HO.S3 06-30 07:35 → HO.EDOVER 07-01 16:12 → HO.S3 07-01 16:12
PROVIDERS: Family Medicine; Physician Assistant; Admitting Provider Family Medicine; Emergency Provider Emergency Medicine; PCP Nurse Practitioner Family; Visit Provider Nurse Practitioner Acute Care
DX: N39.0 Urinary tract infection, site not specified (principal); I69.354 Hemiplegia and hemiparesis following cerebral infarction affecting left non-dominant side; S32.039A Unspecified fracture of third lumbar vertebra, initial encounter for closed fracture; F39 Unspecified mood [affective] disorder; B96.20 Unspecified Escherichia coli [E. coli] as the cause of diseases classified elsewhere; K59.00 Constipation, unspecified; E78.5 Hyperlipidemia, unspecified; I10 Essential (primary) hypertension; W19.XXXA Unspecified fall, initial encounter; K52.9 Noninfective gastroenteritis and colitis, unspecified; Z20.822 Contact with and (suspected) exposure to COVID-19; Z79.82 Long term (current) use of aspirin; Z79.84 Long term (current) use of oral hypoglycemic drugs; Z79.899 Other long term (current) drug therapy
CPT/HCPCS: 0241U; 36415; 70450; 71250; 72125; 74176; 80048; 80053; 81001; 82140; 82550; 82947; 83605; 83735; 83880; 84484; 85025; 85027; 87040; 87086; 87088; 87186; 87635; 93005; 97162; 99218; 99285; J0696; J1650

== ENCOUNTER 2023-03-15 08:25 | Inpatient (IN) | payer MEDICARE, OTHER, SELFPAY ==
[2023-03-15] VITALS (8 sets, daily range): BP systolic 100–166; BP diastolic 56–83; PULSE 70–93; RESP 17–26; TEMP 36.4–37.3; O2SAT 89–99; BMI 24.0; BMI 23.5
--- NOTE | ~2023-03-15 | CT_ITS ---
EXAMINATION: CT HEAD WITHOUT CONTRAST CLINICAL INFORMATION: Seizures. COMPARISON: CT head 06/29/2022 TECHNIQUE: Contiguous axial imaging was performed from the skull base to vertex without intravenous administration of contrast. Coronal and sagittal reformatted images are performed at the CT scanner. [This CT examination was performed using dose optimization techniques as appropriate, variously including the following: *Automated exposure control *Adjustment of mA and/or kV according to patient size (this includes techniques or standardized protocols for targeted exams where dose is matched to indication/reason for exam; i.e. extremities or head) *Use of iterative reconstruction technique] DLP: 5.12+602.74 mGy-cm. FINDINGS: Focal hypodensity consistent with old infarct/gliosis in the right vertex and left vertex at the frontal parietal lobe. These are remains unchanged since prior study 06/29/2022. Stable small lacunar infarct in the left rena also unchanged since prior study. There is no evidence of acute intracranial hemorrhage or acute territorial infarction. No abnormal mass-effect or midline shift is seen. Wolfe to white matter differentiation is well preserved. No extra-axial fluid collections are identified. There is generalized global volume loss. There is moderate prominence of the ventricles and the sulci . There is [id number]-pf-dtbtdo hypodensity of the periventricular white matter due to chronic small vessel ischemic disease. There are vascular calcifications of the internal carotid arteries bilaterally. There is no osseous abnormality. The mastoid air cells and visualized portions of the paranasal sinuses are well-aerated. CT/CT head/brain wo IV con IMPRESSION: 1. No acute intracranial pathology. 2. Focal hypodensity consistent with old infarct/gliosis in the right and left vertex frontal parietal lobe. 3. There is [id number] hypodensity of the periventricular white matter due to chronic small vessel ischemic disease.
--- NOTE | ~2023-03-15 | CT_ITS ---
EXAMINATION: CT ANGIOGRAM OF THE CHEST WITH AND WITHOUT CONTRAST (CT PULMONARY ANGIOGRAM FOR PE) CLINICAL INFORMATION: Reason for Exam elevated trop, sob, elevated d-dimer COMPARISON: CT chest 06/29/2022 TECHNIQUE: Prior to contrast administration, noncontrast localization images were obtained. Subsequently, multidetector volumetric imaging was performed from the thoracic inlet to below the diaphragms following the administration of 65 mL Omnipaque 350 intravenous contrast. No contrast reaction reported Sagittal, coronal, and MIP oblique sagittal reformatted images were obtained on the CT workstation, uploaded to PACS, and reviewed. This CT examination was performed using dose optimization techniques as appropriate, variously including the following: *Automated exposure control *Adjustment of mA and/or kV according to patient size (this includes techniques or standardized protocols for targeted exams where dose is matched to indication/reason for exam; i.e. extremities or head) *Use of iterative reconstruction technique Total exam dose-length product 931 mGy-cm FINDINGS: QUALITY OF STUDY/CONTRAST BOLUS: Satisfactory. PULMONARY ARTERIES: No pulmonary emboli. THORACIC AORTA: No aneurysm. LUNG: No focal consolidation, nodules or masses. PLEURA: No pleural effusion or pneumothorax. MEDIASTINUM: Normal heart size. No pericardial effusion. No hilar or mediastinal lymphadenopathy. No evidence of septal bowing or right heart strain. CORONARY ARTERY CALCIFICATION: None visualized on this study. CHEST WALL/AXILLA: No axillary or internal mammary lymphadenopathy. OSSEOUS STRUCTURES: No acute or suspicious osseous abnormality. UPPER ABDOMEN: There are a few scattered small calcified granuloma within the liver. Slight reflux of contrast into the inferior vena cava and hepatic veins suggesting elevated right heart pressure. No evidence of septal bowing however. CT/CT angio chest PE protocol IMPRESSION: Normal CT of chest. No evidence of pulmonary embolism. VTE: negative.
--- NOTE | ~2023-03-15 | XR_ITS ---
EXAMINATION: XR CHEST CLINICAL INFORMATION: Shortness of breath. Question fluid overload. COMPARISON: Previous chest CT June 2022 and chest x-ray April 2022 TECHNIQUE: Frontal view of the chest was obtained. FINDINGS: The cardiac and mediastinal contours are normal. The lungs are clear. No pleural effusion or pneumothorax. Degenerative changes of the spine. XR/XR chest 1V IMPRESSION: No evidence for acute disease in the chest.
--- OUTSIDE RECORDS SUMMARY | 2023-03-15 08:45 | XMS_ITS | Continuity of Care Document ---
Author Name Unknown Organization [facility] Address [address] [place] [address]- Care Team Providers Care Contact Worker Lithography Name Role Phone Cm ROSARIO, Kayy Kulkarni Primary Care Physician Encounter [facility] Date(s): 07/26/22 - 08/25/22 [facility] [facility] [address] [place] [address]- [place] Allergies, Adverse Reactions, Alerts No Known Allergies Immunizations Given and Recorded Vaccine Date Status Refusal Reason influenza virus vaccine, inactivated 1 09/20/21 Gi josafat influenza virus vaccine, inactivated 06/08/20 Santo rded influenza virus vaccine, inactivated 2 06/26/19 Gi josafat influenza virus vaccine, inactivated 09/14/15 Give n influenza virus vaccine, inactivated 07/20/14 Give n influenza virus vaccine, inactivated 3 07/17/13 Gi josafat influenza virus vaccine, inactivated 05/24/08 Give n SARS-CoV-2 (COVID-19) mRNA BNT-162b2 vac 07/10/21 Recorded SARS-CoV-2 (COVID-19) mRNA-1273 vaccine 11/22/20 R ecorded SARS-CoV-2 (COVID-19) mRNA-1273 vaccine 10/25/20 R ecorded pneumococcal 23-valent vaccine 02/15/16 Recorded tetanus/diphtheria/pertussis, acel(Tdap) 09/14/15 Given Influenza Inactive (IM) (oldterm) 4 09/25/10 Given Pneumococcal Poly (PPV23) (oldterm) 05/24/08 Given tetanus-diphtheria toxoids (Td) 12/22/04 Given 1Result Comment: [facility] [id number] 2Result Comment: [facility] [id number] 3Admin Note: vis 03/20/13 4Admin Note: Pt reports received while in hospital. [facility] Medications aero chamber aero chamber, with albuterol, By Mouth, Every 6 hours, PRN sob /wheeze, # 1 applicator, Refills 0, Tot. Refills 0, Maintenance, 11/08/10 11:23:49 Start Date: 11/08/10 Status: Ordered aspirin 81 mg oral delayed release tablet 81 mg, 1, tablet, By Mouth, Daily, # 90 tablet, Refills 1, Tot. Refills 1, Maintenance, 09/15/21 12:58:00 EST, Route to Pharmacy Electronically, [facility]/pharmacy #[id number], Partial fill upon patient request if the prescription is for a schedule II opioid drug. Start Date: 09/15/21 Stop Date: 03/14/22 Status: Ordered Aspirin Low Dose 81 mg oral delayed release tablet 1 tablet, By Mouth, Daily, # 90 tablet, 1 Refills, [facility]ORE 27573, 170.18, cm, 02/12/22 10:54:00 EDT, Height Start Date: 03/22/22 Status: Ordered atenolol 50 mg oral tablet See Instructions, TAKE 1 TABLET BY MOUTH EVERY DAY, # 180 tablet, Refills 1, Tot. Refills 1, Maintenance, 02/12/22 11:12:00 EDT, Instructions Replace Required Details, Route to Pharmacy Electronically, [facility]/pharmacy #[id number], 170.18, cm, 02/12/22 10:54:0... Start Date: 02/12/22 Status: Ordered Colace sodium 100 mg oral capsule 100 mg, 1, capsule, By Mouth, 2 times a day, PRN, with plenty of water, # 60 capsule, Refills 1, Tot. Refills 1, Maintenance, for constipation, 10/28/18 11:12:39 EST, Route to Pharmacy Electronically, [id number], [facility]/pharmacy... Start Date: 10/28/18 Status: Ordered FREESTYLE 28G LANCETS FREESTYLE 28G LANCETS, See Instructions, # 100 Unknown, 11 Refills, USE TO TEST 4 TIMES DAILY Start Date: 07/31/21 Status: Ordered FREESTYLE 28G LANCETS FREESTYLE 28G LANCETS, See Instructions, # 100 Unknown, 11 Refills, Maintenance, USE TO TEST 4 TIMES DAILY, 08/09/22 12:42:00 EST, 170.18, cm, 06/27/22 13:34:00 EDT, Height Start Date: 08/09/22 Status: Ordered FREESTYLE LITE TEST STRIP FREESTYLE LITE TEST STRIP, See Instructions, # 100 Unknown, 11 Refills, USE TO TEST 4 TIMES DAILY Start Date: 09/11/21 Status: Ordered glipiZIDE 5 mg oral tablet 1, tablet, By Mouth, 2 times a day, # 180 tablet, Refills 0, Route to Pharmacy Electronically, [facility]18 Start Date: 07/31/21 Status: Ordered glipiZIDE 5 mg oral tablet See Instructions, TAKE 1 TABLET BY MOUTH TWICE A DAY, # 180 tablet, Refills 1, Tot. Refills 1, Instructions Replace Required Details, Route to Pharmacy Electronically, [facility] Start Date: 10/13/21 Status: Ordered glipiZIDE 5 mg oral tablet 1, tablet, By Mouth, 2 times a day, # 180 tablet, Refills 1, Route to Pharmacy Electronically, [facility] 43235, 170.18, cm, 02/12/22 10:54:00 EDT, Height Start Date: 03/22/22 Status: Ordered LORazepam 0.5 mg oral tablet See Instructions, TAKE 1 TABLET BY MOUTH TWICE A DAY NEEDED FOR ANXIETY, # 42 tablet, 0 Refills,Soft Stop, 08/15/22 13:09:00 EST, [facility]/pharmacy #2071, 170.18, cm, 06/27/22 13:34:00 EDT, Height Start Date: 08/15/22 Status: Ordered lovastatin 20 mg oral tablet See Instructions, TAKE 1 TABLET BY MOUTH EVERY DAY WITH EVENING MEAL, # 90 tablet, 1 Refills, [facility] 10756, 170.18, cm, 02/12/22 10:54:00 EDT, Height Start Date: 03/22/22 Status: Ordered NovoLOG FlexPen 100 units/mL injectable solution See Instructions, Subcutaneous Infusion 3 times a day before meals per Sliding Scale. No more than 24 units in a 24 hour period., # 3 mL, 11 Refills, Maintenance, 09/15/21 12:59:00 EST, [facility] Start Date: 09/15/21 Status: Ordered olanzapine 20 mg oral tablet 1 tablet, By Mouth, Daily, # 90 tablet, 1 Refills, Maintenance, 06/08/22 9:05:00 EDT, [facility], 170.18, cm, 02/12/22 10:54:00 EDT, Height Start Date: 06/08/22 Status: Ordered Pen [place], 30 G x 8 mm BD Ultra Fine II See Instructions, # 300 each, Refills 3, Tot. Refills 3, Maintenance, E11.8 Test blood glucose three times a day., 08/23/20 16:34:00 EST, [facility], 170.18, cm, 06/26/19 10:19:00 EDT, Height Start Date: 08/23/20 Stop Date: 08/18/21 Status: Ordered polyethylene glycol 3350 oral powder for reconstitution = 17 Gm, By Mouth, Daily in AM, PRN Other, dissolve in water or juice., # 255 Gm, 1 Refills, Maintenance, 05/05/19 10:20:31 EDT, Powder, 17 Gm By Mouth Daily in AM,PRN:Other,Instr:dissolve in water or juice. Start Date: 05/05/19 Status: Ordered senna - oral tablet 1 tablet, By Mouth, Daily at bedtime, Per med rec 03/19/16 with the pt's . KL, 0 Refills, Maintenance, 03/19/16 14:24:28 Start Date: 03/19/16 Status: Ordered venlafaxine 150 mg oral capsule, extended release 1 capsule, By Mouth, Daily, # 90 capsule, 0 Refills, [facility], 170.18, cm, 02/12/22 10:54:00EDT, Height Start Date: 03/22/22 Status: Ordered venlafaxine 150 mg oral capsule, extended release 1 capsule, By Mouth, Daily, # 90 capsule, 0 Refills, [facility] Start Date: 12/26/21 Status: Ordered venlafaxine 75 mg oral capsule, extended release 1 capsule, By Mouth, Daily, # 90 capsule, 0 Refills, [facility], 170.18, cm, 02/12/22 10:54:00EDT, Height Start Date: 03/22/22 Status: Ordered venlafaxine 75 mg oral capsule, extended release 1 capsule, By Mouth, Daily, # 90 capsule, 0 Refills, [facility] Start Date: 12/26/21 Status: Ordered Problem List Condition Confirmation Course Effective Dates Status H ealth Status Informant CAD - Coronary artery disease Confirmed Active Acute CVA (cerebrovascular accident) Confirmed Active Chronic diastolic CHF (congestive heart failure) Confirmed Active Chronic kidney disease (CKD) Confirmed Active COPD - Chronic obstructive pulmonary disease Confirmed Active CAD (coronary artery disease) Confirmed Active CVA - Cerebrovascular accident Confirmed 06/12/11 Active Depression Confirmed Active Diabetes mellitus Confirmed 09/25/10 Active Diverticulosis Confirmed 09/25/10 Active Fatigue Confirmed Active Gastroesophageal reflux disease Confirmed Active Hypertension Confirmed Active Anxiety and depression Confirmed Active NIDDM - Non-insulin dependent diabetes mellitus Confirmed Active Pain in shoulder Confirmed 06/12/11 Active PAD (peripheral artery disease) Confirmed Active Seizure Confirmed 02/20/13 Active 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 Confirmed Active Tobacco abuse Confirmed Active Social History Social History Type Response Smoking Status Former smoker; Type: Cigarettes; Other: 1ppd; entered on: 01/08/17 Sex Patient Care team information Care Team Personnel Name: Kayy Pabon NP Position: S PCO Associate Professional Member Role: PCP Address: Address: [address] [place] [address]- Care Team Related Persons Name: JONI BUENO Address: home [address] [place] [id number]
--- OUTSIDE RECORDS SUMMARY | 2023-03-15 08:45 | XMS_ITS | Continuity of Care Document ---
Author Name Unknown Organization [facility] Address [address] [place] [address]- Care Team Providers Care B2B Sales Professional Name Role Phone Cm ROSARIO, Kayy Kulkarni Primary Care Physician Encounter [facility] Date(s): 12/28/22 - 01/27/23 [facility] [address] [place] [address]- [place] Allergies, Adverse Reactions, Alerts No Known [...] 12/22/04 Given 1Result Comment: [facility] [id number] 2Result Comment: [facility] [id number] 3Admin Note: vis 03/20/13 4Admin Note: Pt [...] 09/15/21 12:58:00 EST, Route to Pharmacy Electronically, [facility]/pharmacy #[id number], Partial fill upon patient request if the prescription is for a schedule II opioid drug. Start Date: 09/15/21 Stop Date: 03/14/22 Status: Ordered Aspirin Low Dose 81 mg oral delayed release tablet See Instructions, TAKE 1 TABLET BY MOUTH EVERY DAY, # 90 tablet, 1 Refills, Maintenance, 09/17/22 8:39:00 EST, [facility] STORE 57044, 170.18, cm, 06/27/22 13:34:00 EDT, Height Start Date: 09/17/22 Status: Ordered Aspirin Low Dose 81 mg oral delayed release tablet 1 tablet, By Mouth, Daily, # 90 tablet, 1 Refills, [facility] 98316, 170.18, cm, 02/12/22 10:54:00 EDT, Height Start Date: 03/22/22 Status: Ordered atenolol 50 mg oral tablet See Instructions, TAKE 1 TABLET BY MOUTH EVERY DAY, # 180 tablet, Refills 1, Tot. Refills 1, Maintenance, 02/12/22 11:12:00 EDT, Instructions Replace Required Details, Route to Pharmacy Electronically, [facility]/pharmacy #[id number], 170.18, cm, 02/12/22 10:54:0... Start Date: 02/12/22 Status: Ordered Colace sodium 100 mg oral capsule 100 mg, 1, capsule, By Mouth, 2 times a day, PRN, with plenty of water, # 60 capsule, Refills 1, Tot. Refills 1, Maintenance, for constipation, 10/28/18 11:12:39 EST, Route to Pharmacy Electronically, [id number], [facility]/pharmacy... Start Date: 10/28/18 Status: Ordered FREESTYLE 28G [...] TIMES DAILY Start Date: 09/11/21 Status: Ordered FREESTYLE LITE TEST STRIP FREESTYLE LITE TEST STRIP, See Instructions, # 100 Unknown, 11 Refills, Maintenance, USE TO TEST 4 TIMES DAILY, 10/27/22 21:28:00 EST, 170.18, cm, 06/27/22 13:34:00 EDT, Height Start Date: 10/27/22 Status: Ordered glipiZIDE 5 mg oral tablet 1, tablet, By Mouth, 2 times a day, # 180 tablet, Refills 0, Route to Pharmacy Electronically, [facility] 86684 Start Date: 07/31/21 Status: Ordered glipiZIDE 5 mg oral tablet 1, tablet, By Mouth, 2 times a day, # 180 tablet, Refills 0, Maintenance, 01/24/23 21:39:00 EDT, Route to Pharmacy Electronically, [facility] 91280, 170.18, cm, 06/27/22 13:34:00 EDT, Height Start Date: 01/24/23 Status: Ordered glipiZIDE 5 mg oral tablet See Instructions, TAKE 1 TABLET BY MOUTH TWICE A DAY, # 180 tablet, Refills 1, Tot. Refills 1, Instructions Replace Required Details, Route to Pharmacy Electronically, [facility] 03242 Start Date: 10/13/21 Status: Ordered LORazepam 0.5 mg oral tablet See Instructions, TAKE 1 TABLET BY MOUTH TWICE A DAY NEEDED FOR ANXIETY, # 42 tablet, 0 Refills,Soft Stop, 10/24/22 20:13:00 EST, [facility]/pharmacy #2071, 170.18, cm, 06/27/22 13:34:00 EDT, Height Start Date: 10/24/22 Status: Ordered LORazepam 0.5 mg oral tablet See Instructions, TAKE 1 TABLET BY MOUTH TWICE A DAY NEEDED FOR ANXIETY, # 42 tablet, 0 Refills,Soft Stop, 12/30/22 17:39:00 EDT, [facility]/pharmacy #2071, 170.18, cm, 06/27/22 13:34:00 EDT, Height Start Date: 12/30/22 Status: Ordered lovastatin 20 mg oral tablet See Instructions, TAKE 1 TABLET BY MOUTH EVERY DAY WITH EVENING MEAL, # 90 tablet, 1 Refills, [facility] 30612, 170.18, cm, 02/12/22 10:54:00 EDT, Height Start Date: 03/22/22 Status: Ordered NovoLOG FlexPen 100 units/mL injectable solution See Instructions, Subcutaneous Infusion 3 times a day before meals per Sliding Scale. No more than 24 units in a 24 hour period., # 3 mL, 11 Refills, Maintenance, 09/15/21 12:59:00 EST, [facility] Start Date: 09/15/21 Status: Ordered olanzapine 20 mg oral tablet 1 tablet, By Mouth, Daily, # 90 tablet, 1 Refills, Maintenance, 06/08/22 9:05:00 EDT, [facility]ORE 70799, 170.18, cm, 02/12/22 10:54:00 EDT, Height Start Date: 06/08/22 Status: Ordered Pen [place], 30 G x 8 mm BD Ultra [...] Mouth, Daily, # 90 capsule, 1 Refills, 09/08/22 13:58:00 EST, [facility]/pharmacy #2071, 170.18, cm, 06/27/22 13:34:00 EDT, Height Start Date: 09/08/22 Status: Ordered venlafaxine 150 mg oral capsule, extended release 1 capsule, By Mouth, Daily, # 90 capsule, 0 Refills, [facility] 56133 Start Date: 12/26/21 Status: Ordered venlafaxine 75 mg oral capsule, extended release 1 capsule, By Mouth, Daily, # 90 capsule, 1 Refills, 09/08/22 13:58:00 EST, [facility]/pharmacy #2071, 170.18, cm, 06/27/22 13:34:00 EDT, Height Start Date: 09/08/22 Status: Ordered venlafaxine 75 mg oral capsule, extended release 1 capsule, By Mouth, Daily, # 90 capsule, 0 Refills, [facility] 66479 Start Date: 12/26/21 Status: Ordered Problem List [...] Associate Professional Member Role: PCP Address: Address: [address] [place] [address]- Care Team Related Persons Name: JONI BUENO Address: [address] [address]
--- NOTE | 2023-03-15 08:46 | ECG_ITS ---
Test Reason : syncope Blood Pressure : / mmHG Vent. Rate : 077 BPM Atrial Rate : 077 BPM P-R Int : 158 ms QRS Dur : 146 ms QT Int : 442 ms P-R-T Axes : 074 130 -38 degrees QTc Int : 500 ms Normal sinus rhythm Right bundle branch block Left posterior fascicular block Bifascicular block T wave abnormality, consider inferolateral ischemia Abnormal ECG When compared with ECG of 29-JUN-2022 10:20, QT has shortened Lateral T wave inversions Referred By: Generic ED Physician Electronically Signed By:Dev Hammer
--- OUTSIDE RECORDS SUMMARY | 2023-03-15 08:46 | XMS_ITS | Continuity of Care Document ---
Author Name Unknown Organization [facility] Address [address] [place] [address]- Care Team Providers Care Fashion Consultant Name Role Phone Cm ROSARIO, Kayy Kulkarni Primary Care Physician Encounter [facility] Date(s): 07/17/22 - [facility] [address] [place] [address]- Attending Physician: Not on Staff, Attending MD [...] Comment: [facility] [id number] 2Result Comment: [facility] [id number] 3Admin Note: vis 03/20/13 4Admin Note: Pt reports received while in hospital. [facility] Medications aero chamber [...] 12:58:00 EST, Route to Pharmacy Electronically, [facility]/pharmacy #2071, Partial fill upon patient request if the prescription is for a schedule II opioid drug. Start Date: 09/15/21 Stop Date: 03/14/22 Status: Ordered Aspirin Low Dose 81 mg oral delayed release tablet 1 tablet, By Mouth, Daily, # 90 tablet, 1 Refills, [facility], 170.18, cm, 02/12/22 10:54:00 EDT, Height Start Date: 03/22/22 Status: Ordered atenolol 50 mg oral tablet See Instructions, TAKE 1 TABLET BY MOUTH EVERY DAY, # 180 tablet, Refills 1, Tot. Refills 1, Maintenance, 02/12/22 11:12:00 EDT, Instructions Replace Required Details, Route to Pharmacy Electronically, [facility]/pharmacy #2071, 170.18, cm, 02/12/22 10:54:0... Start Date: 02/12/22 Status: Ordered Colace sodium 100 mg oral capsule 100 mg, 1, capsule, By Mouth, 2 times a day, PRN, with plenty of water, # 60 capsule, Refills 1, Tot. Refills 1, Maintenance, for constipation, 10/28/18 11:12:39 EST, Route to Pharmacy Electronically, [id number], [facility]/pharmacy... Start Date: 10/28/18 Status: Ordered FREESTYLE [...] tablet, Refills 0, Route to Pharmacy Electronically, [facility] 18434 Start Date: 07/31/21 Status: Ordered glipiZIDE 5 mg oral tablet See Instructions, TAKE 1 TABLET BY MOUTH TWICE A DAY, # 180 tablet, Refills 1, Tot. Refills 1, Instructions Replace Required Details, Route to Pharmacy Electronically, [facility] 51023 Start Date: 10/13/21 Status: Ordered glipiZIDE 5 mg oral tablet 1, tablet, By Mouth, 2 times a day, # 180 tablet, Refills 1, Route to Pharmacy Electronically, [facility] 90738, 170.18, cm, 02/12/22 10:54:00 EDT, Height Start Date: 03/22/22 Status: Ordered LORazepam 0.5 mg oral tablet See Instructions, TAKE 1 TABLET BY MOUTH TWICE A DAY NEEDED FOR ANXIETY, # 42 tablet, 0 Refills,Soft Stop, 08/15/22 13:09:00 EST, [facility]/pharmacy #2071, 170.18, cm, 06/27/22 13:34:00 EDT, Height Start Date: 08/15/22 Status: Ordered lovastatin 20 mg oral tablet See Instructions, TAKE 1 TABLET BY MOUTH EVERY DAY WITH EVENING MEAL, # 90 tablet, 1 Refills, [facility] 79766, 170.18, cm, 02/12/22 10:54:00 EDT, Height Start Date: 03/22/22 Status: Ordered NovoLOG FlexPen 100 units/mL injectable solution See Instructions, Subcutaneous Infusion 3 times a day before meals per Sliding Scale. No more than 24 units in a 24 hour period., # 3 mL, 11 Refills, Maintenance, 09/15/21 12:59:00 EST, [facility] Start Date: 09/15/21 Status: Ordered olanzapine 20 mg oral tablet 1 tablet, By Mouth, Daily, # 90 tablet, 1 Refills, Maintenance, 06/08/22 9:05:00 EDT, [facility], 170.18, cm, 02/12/22 10:54:00 EDT, Height Start Date: 06/08/22 Status: Ordered Pen [place], 30 G x 8 mm BD Ultra [...] # 90 capsule, 0 Refills, [facility], 170.18, cm, 02/12/22 10:54:00EDT, Height Start Date: 03/22/22 Status: Ordered venlafaxine 150 mg oral capsule, extended release 1 capsule, By Mouth, Daily, # 90 capsule, 0 Refills, [facility] Start Date: 12/26/21 Status: Ordered venlafaxine 75 mg oral capsule, extended release 1 capsule, By Mouth, Daily, # 90 capsule, 0 Refills, [facility], 170.18, cm, 02/12/22 10:54:00EDT, Height Start Date: 03/22/22 Status: Ordered venlafaxine 75 mg oral capsule, extended release 1 capsule, By Mouth, Daily, # 90 capsule, 0 Refills, [facility] Start Date: 12/26/21 Status: Ordered Problem List [...] Team Personnel Name: Kayy Pabon NP Position: [facility] PCO Associate Professional Member Role: PCP Address: Address: [address] [place] [address]- Care Team Related Persons Name: JONI BUENO Address: home [address] [place] [address]
--- OUTSIDE RECORDS SUMMARY | 2023-03-15 08:46 | XMS_ITS | Continuity of Care Document ---
Author Name Unknown Organization [facility] Address [address] [place] [address]- Care Team Providers Care Trim Machine Operator Name Role Phone Cm ROSARIO, Kayy Kulkarni Primary Care Physician Encounter [facility] Date(s): 09/07/22 - 10/07/22 [facility] [address] [place] [address]- [place] Allergies, Adverse Reactions, Alerts No Known [...] 1Result Comment: [facility] [id number] 2Result Comment: [facility] [id number] 3Admin Note: vis 03/20/13 4Admin Note: Pt [...] 12:58:00 EST, Route to Pharmacy Electronically, [facility]/pharmacy #2071, Partial fill upon patient request if the prescription is for a schedule II opioid drug. Start Date: 09/15/21 Stop Date: 03/14/22 Status: Ordered Aspirin Low Dose 81 mg oral delayed release tablet See Instructions, TAKE 1 TABLET BY MOUTH EVERY DAY, # 90 tablet, 1 Refills, Maintenance, 09/17/22 8:39:00 EST, [facility] ST[facility] 26839, 170.18, cm, 06/27/22 13:34:00 EDT, Height Start Date: 09/17/22 Status: Ordered Aspirin Low Dose 81 mg oral delayed release tablet 1 tablet, By Mouth, Daily, # 90 tablet, 1 Refills, [facility] 30262, 170.18, cm, 02/12/22 10:54:00 EDT, Height Start Date: 03/22/22 Status: Ordered atenolol 50 mg oral tablet See Instructions, TAKE 1 TABLET BY MOUTH EVERY DAY, # 180 tablet, Refills 1, Tot. Refills 1, Maintenance, 02/12/22 11:12:00 EDT, Instructions Replace Required Details, Route to Pharmacy Electronically, [facility]/pharmacy #2071, 170.18, cm, 02/12/22 10:54:0... Start Date: 02/12/22 Status: Ordered Colace sodium 100 mg oral capsule 100 mg, 1, capsule, By Mouth, 2 times a day, PRN, with plenty of water, # 60 capsule, Refills 1, Tot. Refills 1, Maintenance, for constipation, 10/28/18 11:12:39 EST, Route to Pharmacy Electronically, [id number], [facility]/pharmacy... Start Date: 10/28/18 Status: Ordered FREESTYLE [...] tablet, Refills 0, Route to Pharmacy Electronically, [facility] Start Date: 07/31/21 Status: Ordered glipiZIDE 5 mg oral tablet See Instructions, TAKE 1 TABLET BY MOUTH TWICE A DAY, # 180 tablet, Refills 1, Tot. Refills 1, Instructions Replace Required Details, Route to Pharmacy Electronically, [facility] 66723 Start Date: 10/13/21 Status: Ordered glipiZIDE 5 mg oral tablet 1, tablet, By Mouth, 2 times a day, # 180 tablet, Refills 1, Route to Pharmacy Electronically, [facility] 99594, 170.18, cm, 02/12/22 10:54:00 EDT, Height Start Date: 03/22/22 Status: Ordered LORazepam 0.5 mg oral tablet See Instructions, TAKE 1 TABLET BY MOUTH TWICE A DAY NEEDED FOR ANXIETY, # 42 tablet, 0 Refills,Soft Stop, 08/15/22 13:09:00 EST, [facility]/pharmacy #2071, 170.18, cm, 06/27/22 13:34:00 EDT, Height Start Date: 08/15/22 Status: Ordered lovastatin 20 mg oral tablet See Instructions, TAKE 1 TABLET BY MOUTH EVERY DAY WITH EVENING MEAL, # 90 tablet, 1 Refills, [facility] 75290, 170.18, cm, 02/12/22 10:54:00 EDT, Height Start Date: 03/22/22 Status: Ordered NovoLOG FlexPen 100 units/mL injectable solution See Instructions, Subcutaneous Infusion 3 times a day before meals per Sliding Scale. No more than 24 units in a 24 hour period., # 3 mL, 11 Refills, Maintenance, 09/15/21 12:59:00 EST, [facility] Start Date: 09/15/21 Status: Ordered olanzapine 20 mg oral tablet 1 tablet, By Mouth, Daily, # 90 tablet, 1 Refills, Maintenance, 06/08/22 9:05:00 EDT, [facility] STORE 99282, 170.18, cm, 02/12/22 10:54:00 EDT, Height Start Date: 06/08/22 Status: Ordered Pen [place], 30 G x 8 mm BD Ultra [...] 90 capsule, 1 Refills, 09/08/22 13:58:00 EST, [facility]/pharmacy #2071, 170.18, cm, 06/27/22 13:34:00 EDT, Height Start Date: 09/08/22 Status: Ordered venlafaxine 150 mg oral capsule, extended release 1 capsule, By Mouth, Daily, # 90 capsule, 0 Refills, [facility] 26295 Start Date: 12/26/21 Status: Ordered venlafaxine 75 mg oral capsule, extended release 1 capsule, By Mouth, Daily, # 90 capsule, 1 Refills, 09/08/22 13:58:00 EST, [facility], 170.18, cm, 06/27/22 13:34:00 EDT, Height Start Date: 09/08/22 Status: Ordered venlafaxine 75 mg oral capsule, extended release 1 capsule, By Mouth, Daily, # 90 capsule, 0 Refills, [facility] 18738 Start Date: 12/26/21 Status: Ordered Problem List [...] Associate Professional Member Role: PCP Address: Address: [address] [place], [place] [address] [place] [address]- Care Team Related Persons Name: JONI BUENO Address: home [address] [place] [id number]
--- OUTSIDE RECORDS SUMMARY | 2023-03-15 08:46 | XMS_ITS | Continuity of Care Document ---
Author Name Unknown Organization [facility] [facility] Address [address] [place] [address]- Care Team Providers Care Internet E Commerce Specialist Name Role Phone Cm ROSARIO, Kayy Kulkarni Primary Care Physician [phone] Encounter [facility] Date(s): 07/17/22 - 08/16/22 [facility] [place] [facility] [address] [place] [address]- [place] Allergies, Adverse Reactions, Alerts No Known [...] (Td) 12/22/04 Given 1Result Comment: [facility] [id number] 2Result Comment: [facility] [id number] 3Admin Note: vis 03/20/13 4Admin Note: Pt [...] EST, Route to Pharmacy Electronically, [facility]/pharmacy #[id number], Partial fill upon patient request if the prescription is for a schedule II opioid drug. Start Date: 09/15/21 Stop Date: 03/14/22 Status: Ordered Aspirin Low Dose 81 mg oral delayed release tablet 1 tablet, By Mouth, Daily, # 90 tablet, 1 Refills, [facility] STORE 19989, 170.18, cm, 02/12/22 10:54:00 EDT, Height Start Date: 03/22/22 Status: Ordered atenolol 50 mg oral tablet See Instructions, TAKE 1 TABLET BY MOUTH EVERY DAY, # 180 tablet, Refills 1, Tot. Refills 1, Maintenance, 02/12/22 11:12:00 EDT, Instructions Replace Required Details, Route to Pharmacy Electronically, [facility]/pharmacy #[id number], 170.18, cm, 02/12/22 10:54:0... Start Date: 02/12/22 Status: Ordered Colace sodium 100 mg oral capsule 100 mg, 1, capsule, By Mouth, 2 times a day, PRN, with plenty of water, # 60 capsule, Refills 1, Tot. Refills 1, Maintenance, for constipation, 10/28/18 11:12:39 EST, Route to Pharmacy Electronically, [id number], [facility]/pharmacy... Start Date: 10/28/18 Status: Ordered FREESTYLE [...] tablet, Refills 0, Route to Pharmacy Electronically, [facility] 8[facility]47 Start Date: 07/31/21 Status: Ordered glipiZIDE 5 mg oral tablet See Instructions, TAKE 1 TABLET BY MOUTH TWICE A DAY, # 180 tablet, Refills 1, Tot. Refills 1, Instructions Replace Required Details, Route to Pharmacy Electronically, [facility] Start Date: 10/13/21 Status: Ordered glipiZIDE 5 mg oral tablet 1, tablet, By Mouth, 2 times a day, # 180 tablet, Refills 1, Route to Pharmacy Electronically, [facility] 44617, 170.18, cm, 02/12/22 10:54:00 EDT, Height Start Date: 03/22/22 Status: Ordered LORazepam 0.5 mg oral tablet See Instructions, TAKE 1 TABLET BY MOUTH TWICE A DAY NEEDED FOR ANXIETY, # 42 tablet, 0 Refills,Soft Stop, 08/15/22 13:09:00 EST, [facility]/pharmacy #[id number], 170.18, cm, 06/27/22 13:34:00 EDT, Height Start Date: 08/15/22 Status: Ordered lovastatin 20 mg oral tablet See Instructions, TAKE 1 TABLET BY MOUTH EVERY DAY WITH EVENING MEAL, # 90 tablet, 1 Refills, [facility] 98428, 170.18, cm, 02/12/22 10:54:00 EDT, Height Start Date: 03/22/22 Status: Ordered NovoLOG FlexPen 100 units/mL injectable solution See Instructions, Subcutaneous Infusion 3 times a day before meals per Sliding Scale. No more than 24 units in a 24 hour period., # 3 mL, 11 Refills, Maintenance, 09/15/21 12:59:00 EST, [facility] Start Date: 09/15/21 Status: Ordered olanzapine 20 mg oral tablet 1 tablet, By Mouth, Daily, # 90 tablet, 1 Refills, Maintenance, 06/08/22 9:05:00 EDT, [facility], 170.18, cm, 02/12/22 10:54:00 EDT, Height Start Date: 06/08/22 Status: Ordered Pen [place], 30 G x 8 mm BD Ultra [...] # 90 capsule, 0 Refills, [facility], 170.18, cm, 02/12/22 10:54:00EDT, Height Start Date: 03/22/22 Status: Ordered venlafaxine 150 mg oral capsule, extended release 1 capsule, By Mouth, Daily, # 90 capsule, 0 Refills, [facility] Start Date: 12/26/21 Status: Ordered venlafaxine 75 mg oral capsule, extended release 1 capsule, By Mouth, Daily, # 90 capsule, 0 Refills, [facility], 170.18, cm, 02/12/22 10:54:00EDT, Height Start Date: 03/22/22 Status: Ordered venlafaxine 75 mg oral capsule, extended release 1 capsule, By Mouth, Daily, # 90 capsule, 0 Refills, [facility] Start Date: 12/26/21 Status: Ordered Problem List [...] Associate Professional Member Role: PCP Address: Address: [address] [place] [address]- Care Team Related Persons Name: JONI BUENO Address: home [address] [place] [address]
--- OUTSIDE RECORDS SUMMARY | 2023-03-15 08:46 | XMS_ITS | Continuity of Care Document ---
Author Name Unknown Organization [facility] Address [address] [place] [address]- Care Team Providers Care General Office Worker Name Role Phone Cm DIRECTOR PARK, Kayy M Primary Care Physician Encounter [facility] Date(s): 08/15/22 - [facility] [address] [place] [address]- Attending Physician: Tramaine Quevedo Admitting Physician: AdmtrTramaine Referring Physician: Admtr, ArTelma Allergies, Adverse Reactions, Alerts No Known Allergies [...] 12/22/04 Given 1Result Comment: [facility] [id number] 2Result Comment: [facility] [id number] 3Admin Note: vis 03/20/13 4Admin Note: Pt reports received while in hospital. [facility] Medications aero chamber aero chamber, with albuterol, By Mouth, Every 6 hours, PRN sob /wheeze, # 1 applicator, Refills 0, Tot. Refills 0, Maintenance, 11/08/10 11:23:49 Start Date: 11/08/10 Status: Ordered aspirin 81 mg oral delayed release tablet 81 mg, 1, tablet, By Mouth, Daily, # 90 tablet, Refills 1, Tot. Refills 1, Maintenance, 09/15/21 12:58:00 EST, Route to Pharmacy Electronically, [facility]/pharmacy #[id number], Partial fill upon patient request if the prescription is for a schedule II opioid drug. Start Date: 09/15/21 Stop Date: 03/14/22 Status: Ordered Aspirin Low Dose 81 mg oral delayed release tablet 1 tablet, By Mouth, Daily, # 90 tablet, 1 Refills, [facility] STORE 36937, 170.18, cm, 02/12/22 10:54:00 EDT, Height Start Date: 03/22/22 Status: Ordered atenolol 50 mg oral tablet See Instructions, TAKE 1 TABLET BY MOUTH EVERY DAY, # 180 tablet, Refills 1, Tot. Refills 1, Maintenance, 02/12/22 11:12:00 EDT, Instructions Replace Required Details, Route to Pharmacy Electronically, [facility]/pharmacy #2071, 170.18, cm, 02/12/22 10:54:0... Start Date: 02/12/22 Status: Ordered Colace sodium 100 mg oral capsule 100 mg, 1, capsule, By Mouth, 2 times a day, PRN, with plenty of water, # 60 capsule, Refills 1, Tot. Refills 1, Maintenance, for constipation, 10/28/18 11:12:39 EST, Route to Pharmacy Electronically, [id number], [facility]/pharmacy... Start Date: 10/28/18 Status: Ordered FREESTYLE 28G [...] tablet, Refills 0, Route to Pharmacy Electronically, [facility] 49637 Start Date: 07/31/21 Status: Ordered glipiZIDE 5 mg oral tablet See Instructions, TAKE 1 TABLET BY MOUTH TWICE A DAY, # 180 tablet, Refills 1, Tot. Refills 1, Instructions Replace Required Details, Route to Pharmacy Electronically, [facility] 36114 Start Date: 10/13/21 Status: Ordered glipiZIDE 5 mg oral tablet 1, tablet, By Mouth, 2 times a day, # 180 tablet, Refills 1, Route to Pharmacy Electronically, [facility] 57785, 170.18, cm, 02/12/22 10:54:00 EDT, Height Start Date: 03/22/22 Status: Ordered LORazepam 0.5 mg oral tablet See Instructions, TAKE 1 TABLET BY MOUTH TWICE A DAY NEEDED FOR ANXIETY, # 42 tablet, 0 Refills,Soft Stop, 08/15/22 13:09:00 EST, [facility]/pharmacy #2071, 170.18, cm, 06/27/22 13:34:00 EDT, Height Start Date: 08/15/22 Status: Ordered lovastatin 20 mg oral tablet See Instructions, TAKE 1 TABLET BY MOUTH EVERY DAY WITH EVENING MEAL, # 90 tablet, 1 Refills, [facility] 97324, 170.18, cm, 02/12/22 10:54:00 EDT, Height Start Date: 03/22/22 Status: Ordered NovoLOG FlexPen 100 units/mL injectable solution See Instructions, Subcutaneous Infusion 3 times a day before meals per Sliding Scale. No more than 24 units in a 24 hour period., # 3 mL, 11 Refills, Maintenance, 09/15/21 12:59:00 EST, [facility] Start Date: 09/15/21 Status: Ordered olanzapine 20 mg oral tablet 1 tablet, By Mouth, Daily, # 90 tablet, 1 Refills, Maintenance, 06/08/22 9:05:00 EDT, [facility] STORE 88612, 170.18, cm, 02/12/22 10:54:00 EDT, Height Start Date: 06/08/22 Status: Ordered Pen [place], 30 G x 8 mm BD [...] 90 capsule, 1 Refills, 09/08/22 13:58:00 EST, [facility]/pharmacy #2071, 170.18, cm, 06/27/22 13:34:00 EDT, Height Start Date: 09/08/22 Status: Ordered venlafaxine 150 mg oral capsule, extended release 1 capsule, By Mouth, Daily, # 90 capsule, 0 Refills, [facility] STORE 82036 Start Date: 12/26/21 Status: Ordered venlafaxine 75 mg oral capsule, extended release 1 capsule, By Mouth, Daily, # 90 capsule, 1 Refills, 09/08/22 13:58:00 EST, [facility]/pharmacy #2071, 170.18, cm, 06/27/22 13:34:00 EDT, Height Start Date: 09/08/22 Status: Ordered venlafaxine 75 mg oral capsule, extended release 1 capsule, By Mouth, Daily, # 90 capsule, 0 Refills, [facility] Start Date: 12/26/21 Status: Ordered Problem List [...] Cigarettes; Other: 1ppd; entered on: 01/08/17 Sex Note * Event Display: Non BH Lab Results Authored Date: * Event Display: X-Ray Abdomen, Non- BH Authored Date: * Event Display: Non BH Lab Results Authored Date: * Kayy Pabon NP: REVIEW Event Display: Non BH Lab Results Authored Date: * Event Display: Laboratory Result Scanned Authored Date: * Kayy Pabon NP: REVIEW Event Display: Non BH Lab Results Authored Date: Patient Care team information Care Team Personnel Name: Kayy Pabon NP Position: S PCO Associate Professional Member Role: PCP Address: Address: [address] [place] [address] [place] [address]- Care Team Related Persons Name: JONI BUENO Address: home [address] [place] [address]
--- OUTSIDE RECORDS SUMMARY | 2023-03-15 08:46 | XMS_ITS | Continuity of Care Document ---
Author Name Unknown Organization [facility] Address [address] [place] [address]- Care Team Providers Care Street Cleaning Equipment Operator Name Role Phone Cm ROSARIO, Kayy Kulkarni Primary Care Physician Encounter [facility] Date(s): 08/24/22 - 09/23/22 [facility] Adult [facility] [address] [place] [address]- [place] Allergies, Adverse Reactions, Alerts No Known [...] tetanus-diphtheria toxoids (Td) 12/22/04 Given 1Result Comment: [facility] [id number] 2Result Comment: [facility] [id number] 3Admin Note: vis 03/20/13 4Admin Note: Pt [...] 1 Refills, Maintenance, 09/17/22 8:39:00 EST, [facility] STORE 99213, 170.18, cm, 06/27/22 13:34:00 EDT, Height Start Date: 09/17/22 Status: Ordered Aspirin Low Dose 81 mg oral delayed release tablet 1 tablet, By Mouth, Daily, # 90 tablet, 1 Refills, [facility] STORE 18066, 170.18, cm, 02/12/22 10:54:00 EDT, Height Start Date: 03/22/22 Status: Ordered atenolol 50 mg oral tablet See Instructions, TAKE 1 TABLET BY MOUTH EVERY DAY, # 180 tablet, Refills 1, Tot. Refills 1, Maintenance, 02/12/22 11:12:00 EDT, Instructions Replace Required Details, Route to Pharmacy Electronically, [facility]/pharmacy #[id number], 170.18, cm, 02/12/22 10:54:0... Start Date: 02/12/22 Status: Ordered Colace sodium 100 mg oral capsule 100 mg, 1, capsule, By Mouth, 2 times a day, PRN, with plenty of water, # 60 capsule, Refills 1, Tot. Refills 1, Maintenance, for constipation, 10/28/18 11:12:39 EST, Route to Pharmacy Electronically, [id number], [facility]/pharmacy... Start Date: 10/28/18 Status: Ordered FREESTYLE [...] tablet, Refills 0, Route to Pharmacy Electronically, [facility] Start Date: 07/31/21 Status: Ordered glipiZIDE 5 mg oral tablet See Instructions, TAKE 1 TABLET BY MOUTH TWICE A DAY, # 180 tablet, Refills 1, Tot. Refills 1, Instructions Replace Required Details, Route to Pharmacy Electronically, [facility] 41306 Start Date: 10/13/21 Status: Ordered glipiZIDE 5 mg oral tablet 1, tablet, By Mouth, 2 times a day, # 180 tablet, Refills 1, Route to Pharmacy Electronically, [facility]ORE 55397, 170.18, cm, 02/12/22 10:54:00 EDT, Height Start Date: 03/22/22 Status: Ordered LORazepam 0.5 mg oral tablet See Instructions, TAKE 1 TABLET BY MOUTH TWICE A DAY NEEDED FOR ANXIETY, # 42 tablet, 0 Refills,Soft Stop, 08/15/22 13:09:00 EST, [facility]/pharmacy #2071, 170.18, cm, 06/27/22 13:34:00 EDT, Height Start Date: 08/15/22 Status: Ordered lovastatin 20 mg oral tablet See Instructions, TAKE 1 TABLET BY MOUTH EVERY DAY WITH EVENING MEAL, # 90 tablet, 1 Refills, [facility] 94387, 170.18, cm, 02/12/22 10:54:00 EDT, Height Start Date: 03/22/22 Status: Ordered NovoLOG FlexPen 100 units/mL injectable solution See Instructions, Subcutaneous Infusion 3 times a day before meals per Sliding Scale. No more than 24 units in a 24 hour period., # 3 mL, 11 Refills, Maintenance, 09/15/21 12:59:00 EST, [facility] #[facility] Start Date: 09/15/21 Status: Ordered olanzapine 20 mg oral tablet 1 tablet, By Mouth, Daily, # 90 tablet, 1 Refills, Maintenance, 06/08/22 9:05:00 EDT, [facility] STORE 31410, 170.18, cm, 02/12/22 10:54:00 EDT, Height Start Date: 06/08/22 Status: Ordered Pen [place], 30 G x 8 mm BD Ultra [...] capsule, 1 Refills, 09/08/22 13:58:00 EST, [facility]/pharmacy #2071, 170.18, cm, 06/27/22 13:34:00 EDT, Height Start Date: 09/08/22 Status: Ordered venlafaxine 150 mg oral capsule, extended release 1 capsule, By Mouth, Daily, # 90 capsule, 0 Refills, [facility] ST[facility] 46081 Start Date: 12/26/21 Status: Ordered venlafaxine 75 mg oral capsule, extended release 1 capsule, By Mouth, Daily, # 90 capsule, 1 Refills, 09/08/22 13:58:00 EST, [facility], 170.18, cm, 06/27/22 13:34:00 EDT, Height Start Date: 09/08/22 Status: Ordered venlafaxine 75 mg oral capsule, extended release 1 capsule, By Mouth, Daily, # 90 capsule, 0 Refills, [facility] 81075 Start Date: 12/26/21 Status: Ordered Problem List [...] Associate Professional Member Role: PCP Address: Address: [address] [place], [place] [address] [place] [address]- Care Team Related Persons Name: JONI BUENO Address: home [address] [place] [address]
--- OUTSIDE RECORDS SUMMARY | 2023-03-15 08:46 | XMS_ITS | Continuity of Care Document ---
Author Name Unknown Organization [facility] d[facility] Address [address] [place] [address]- Care Team Providers Care Electrical Laboratory Technician Name Role Phone Cm ROSARIO, Kayy Kulkarni Primary Care Physician En[facility] Date(s): 06/26/22 [facility] [address] [place] [address]- [place] Allergies, Adverse Reactions, Alerts No Known [...] [facility] [id number] 2Result Comment: [facility] [id number] 3Admin Note: vis 03/20/13 4Admin Note: Pt [...] 09/15/21 12:58:00 EST, Route to Pharmacy Electronically, [facility]/pharmacy #[id number], Partial fill upon patient request if the prescription is for a schedule II opioid drug. Start Date: 09/15/21 Stop Date: 03/14/22 Status: Ordered Aspirin Low Dose 81 mg oral delayed release tablet 1 tablet, By Mouth, Daily, # 90 tablet, 1 Refills, [facility] STORE 42247, 170.18, cm, 02/12/22 10:54:00 EDT, Height Start Date: 03/22/22 Status: Ordered atenolol 50 mg oral tablet See Instructions, TAKE 1 TABLET BY MOUTH EVERY DAY, # 180 tablet, Refills 1, Tot. Refills 1, Maintenance, 02/12/22 11:12:00 EDT, Instructions Replace Required Details, Route to Pharmacy Electronically, [facility]/pharmacy #[id number], 170.18, cm, 02/12/22 10:54:0... Start Date: 02/12/22 Status: Ordered cefuroxime 250 mg oral tablet 1 tablet = 250 mg, By Mouth, 2 times a day, for 7 days, # 14 tablet, 0 Refills, Acute 08/02/22 16:57:00 EST, 07/26/22 16:57:00 EST, Tablet, [facility]/pharmacy #2071, Partial fill upon patient request if the prescription is for a schedule II opioid drug., 17... Start Date: 07/26/22 Stop Date: 08/02/22 Status: Ordered Colace sodium 100 mg oral capsule 100 mg, 1, capsule, By Mouth, 2 times a day, PRN, with plenty of water, # 60 capsule, Refills 1, Tot. Refills 1, Maintenance, for constipation, 10/28/18 11:12:39 EST, Route to Pharmacy Electronically, [id number], [facility]/pharmacy... Start Date: 10/28/18 Status: Ordered FREESTYLE 28G LANCETS FREESTYLE 28G LANCETS, See Instructions, # 100 Unknown, 11 Refills, USE TO TEST 4 TIMES DAILY Start Date: 07/31/21 Status: Ordered FREESTYLE LITE TEST STRIP FREESTYLE LITE TEST STRIP, See Instructions, # 100 Unknown, 11 Refills, USE TO TEST 4 TIMES DAILY Start Date: 09/11/21 Status: Ordered glipiZIDE 5 mg oral tablet 1, tablet, By Mouth, 2 times a day, # 180 tablet, Refills 0, Route to Pharmacy Electronically, [facility] 39839 Start Date: 07/31/21 Status: Ordered glipiZIDE 5 mg oral tablet See Instructions, TAKE 1 TABLET BY MOUTH TWICE A DAY, # 180 tablet, Refills 1, Tot. Refills 1, Instructions Replace Required Details, Route to Pharmacy Electronically, [facility] 62240 Start Date: 10/13/21 Status: Ordered glipiZIDE 5 mg oral tablet 1, tablet, By Mouth, 2 times a day, # 180 tablet, Refills 1, Route to Pharmacy Electronically, [facility] 89999, 170.18, cm, 02/12/22 10:54:00 EDT, Height Start Date: 03/22/22 Status: Ordered hydrALAZINE 25 mg oral tablet 1, tablet, By Mouth, 2 times a day, for 30 days, # 60 tablet, Refills 5, Tot. Refills 5, Physician Stop 08/11/22 11:12:00 EST, 02/12/22 11:12:00 EDT, Route to Pharmacy Electronically, [facility]/pharmacy #2071, 170.18, cm, 02/12/22 10:54:00 EDT, Height Start Date: 02/12/22 Stop Date: 08/11/22 Status: Ordered LORazepam 0.5 mg oral tablet See Instructions, TAKE 1 TABLET BY MOUTH TWICE A DAY NEEDED FOR ANXIETY, # 42 tablet, 0 Refills,Soft Stop, 04/13/22 14:38:00 EDT, [facility]/pharmacy #2071, 170.18, cm, 02/12/22 10:54:00 EDT, Height Start Date: 04/13/22 Status: Ordered lovastatin 20 mg oral tablet See Instructions, TAKE 1 TABLET BY MOUTH EVERY DAY WITH EVENING MEAL, # 90 tablet, 1 Refills, [facility], 170.18, cm, 02/12/22 10:54:00 EDT, Height Start Date: 03/22/22 Status: Ordered NovoLOG FlexPen 100 units/mL injectable solution See Instructions, Subcutaneous Infusion 3 times a day before meals per Sliding Scale. No more than 24 units in a 24 hour period., # 3 mL, 11 Refills, Maintenance, 09/15/21 12:59:00 EST, [facility] Start Date: 09/15/21 Status: Ordered olanzapine 20 mg oral tablet 1 tablet, By Mouth, Daily, # 90 tablet, 1 Refills, Maintenance, 06/08/22 9:05:00 EDT, [facility], 170.18, cm, 02/12/22 10:54:00 EDT, Height Start Date: 06/08/22 Status: Ordered Pen [place], 30 G x 8 mm BD [...] Mouth, Daily, # 90 capsule, 0 Refills, [facility] 98823, 170.18, cm, 02/12/22 10:54:00EDT, Height Start Date: 03/22/22 Status: Ordered venlafaxine 150 mg oral capsule, extended release 1 capsule, By Mouth, Daily, # 90 capsule, 0 Refills, [facility] Start Date: 12/26/21 Status: Ordered venlafaxine 75 mg oral capsule, extended release 1 capsule, By Mouth, Daily, # 90 capsule, 0 Refills, [facility] , 170.18, cm, 02/12/22 10:54:00EDT, Height Start Date: 03/22/22 Status: Ordered venlafaxine 75 mg oral capsule, extended release 1 capsule, By Mouth, Daily, # 90 capsule, 0 Refills, [facility] Start Date: 12/26/21 Status: Ordered Problem List [...] Professional Member Role: PCP Address: Address: [address] [place] [address]- Care Team Related Persons Name: JONI BUENO Address: home [address] [place] [address]
--- OUTSIDE RECORDS SUMMARY | 2023-03-15 08:46 | XMS_ITS | Continuity of Care Document ---
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 [facility] Medications aero chamber aero chamber, with albuterol, By Mouth, Every 6 hours, PRN sob /wheeze, # 1 applicator, Refills 0, Tot. Refills 0, Maintenance, 11/08/10 11:23:49 Start Date: 11/08/10 Status: Ordered aspirin 81 mg oral delayed release tablet 81 mg, 1, tablet, By Mouth, Daily, # 90 tablet, Refills 1, Tot. Refills 1, Maintenance, 09/15/21 12:58:00 EST, Route to Pharmacy Electronically, [facility]/pharmacy #[id number], Partial fill upon patient request if the prescription is for a schedule II opioid drug. Start Date: 09/15/21 Stop Date: 03/14/22 Status: Ordered Aspirin Low Dose 81 mg oral delayed release tablet 1 tablet, By Mouth, Daily, # 90 tablet, 1 Refills, [facility], 170.18, cm, 02/12/22 10:54:00 EDT, Height Start Date: 03/22/22 Status: Ordered atenolol 50 mg oral tablet See Instructions, TAKE 1 TABLET BY MOUTH EVERY DAY, # 180 tablet, Refills 1, Tot. Refills 1, Maintenance, 02/12/22 11:12:00 EDT, Instructions Replace Required Details, Route to Pharmacy Electronically, [facility]/pharmacy #[id number], 170.18, cm, 02/12/22 10:54:0... Start Date: 02/12/22 Status: Ordered Colace sodium 100 mg oral capsule 100 mg, 1, capsule, By Mouth, 2 times a day, PRN, with plenty of water, # 60 capsule, Refills 1, Tot. Refills 1, Maintenance, for constipation, 10/28/18 11:12:39 EST, Route to Pharmacy Electronically, [id number], [facility]/pharmacy... Start Date: 10/28/18 Status: Ordered FREESTYLE 28G [...] tablet, Refills 0, Route to Pharmacy Electronically, [facility] Start Date: 07/31/21 Status: Ordered glipiZIDE 5 mg oral tablet See Instructions, TAKE 1 TABLET BY MOUTH TWICE A DAY, # 180 tablet, Refills 1, Tot. Refills 1, Instructions Replace Required Details, Route to Pharmacy Electronically, [facility] Start Date: 10/13/21 Status: Ordered glipiZIDE 5 mg oral tablet 1, tablet, By Mouth, 2 times a day, # 180 tablet, Refills 1, Route to Pharmacy Electronically, [facility] , 170.18, cm, 02/12/22 10:54:00 EDT, Height Start Date: 03/22/22 Status: Ordered hydrALAZINE 25 mg oral tablet 1, tablet, By Mouth, 2 times a day, for 30 days, # 60 tablet, Refills 5, Tot. Refills 5, Physician Stop 08/11/22 11:12:00 EST, 02/12/22 11:12:00 EDT, Route to Pharmacy Electronically, [facility]/pharmacy #[id number], 170.18, cm, 02/12/22 10:54:00 EDT, Height Start Date: 02/12/22 Stop Date: 08/11/22 Status: Ordered LORazepam 0.5 mg oral tablet See Instructions, TAKE 1 TABLET BY MOUTH TWICE A DAY NEEDED FOR ANXIETY, # 42 tablet, 0 Refills,Soft Stop, 04/13/22 14:38:00 EDT, [facility]/pharmacy #[id number], 170.18, cm, 02/12/22 10:54:00 EDT, Height Start Date: 04/13/22 Status: Ordered lovastatin 20 mg oral tablet See Instructions, TAKE 1 TABLET BY MOUTH EVERY DAY WITH EVENING MEAL, # 90 tablet, 1 Refills, [facility] , 170.18, cm, 02/12/22 10:54:00 EDT, Height Start Date: 03/22/22 Status: Ordered NovoLOG FlexPen 100 units/mL injectable solution See Instructions, Subcutaneous Infusion 3 times a day before meals per Sliding Scale. No more than 24 units in a 24 hour period., # 3 mL, 11 Refills, Maintenance, 09/15/21 12:59:00 EST, [facility] Start Date: 09/15/21 Status: Ordered olanzapine 20 mg oral tablet 1 tablet, By Mouth, Daily, # 90 tablet, 1 Refills, Maintenance, 06/08/22 9:05:00 EDT, [facility], 170.18, cm, 02/12/22 10:54:00 EDT, Height Start Date: 06/08/22 Status: Ordered Pen [place], 30 G x 8 mm BD Ultra [...] # 90 capsule, 0 Refills, [facility], 170.18, cm, 02/12/22 10:54:00EDT, Height Start Date: 03/22/22 Status: Ordered venlafaxine 150 mg oral capsule, extended release 1 capsule, By Mouth, Daily, # 90 capsule, 0 Refills, [facility] Start Date: 12/26/21 Status: Ordered venlafaxine 75 mg oral capsule, extended release 1 capsule, By Mouth, Daily, # 90 capsule, 0 Refills, [facility] 15197, 170.18, cm, 02/12/22 10:54:00EDT, Height Start Date: 03/22/22 Status: Ordered venlafaxine 75 mg oral capsule, extended release 1 capsule, By Mouth, Daily, # 90 capsule, 0 Refills, [facility]222 Start Date: 12/26/21 Status: Ordered Problem List [...] side Confirmed Active Tobacco abuse Confirmed Active Diagnosis Diagnosis Type Effective Dates Health Status Clinical Service Informant 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 Discharge Diagnosis 06/27/22 Acute CVA (cerebrovascular accident) Discharge Diagnosis 06/27/22 COPD - Chronic obstructive pulmonary disease Discharge Diagnosis 06/27/22 Vital Signs Most recent to oldest [Reference Range]: 1 Height 170.18 cm (06/27/22 1:34 PM) Social History Social History Type Response Smoking Status Former smoker; Type: Cigarettes; Other: 1ppd; entered on: 01/08/17 Sex Note * Estephania Alatorre MA: PERFORM, SIGN, VERIFY Event Display: Patient Education/Instruction Authored Date: [facility] *BMP Quab Adlt Med Bltn Clinical Summary Name NAYELI BUENO Age 66 Years 1955 PCP Cm FLIGHT COMMUNICATIONS OFFICER, Kayy Kulkarni PCP Visit Date 06/27/2022 13:32:00 Additional Instructions: Scheduled Appointments?? Future Appointments ?*BMP??Quab??Adlt??Med??Bltn ?[address],??[place],??[address] ?Phone:??--?Fax:??-- ?Appt. Date:??08/15/2022?12:40 PM ?Scheduled Provider:??Cm ROSARIO , Kayy Kulkarni Follow-Up Instructions ?? Diagnosis Chronic obstructive pulmonary disease, unspecified; Spastic hemiplegia affecting unspecified side; Cerebral infarction, unspecified; Type 2 diabetes mellitus with diabetic chronic kidney disease Medications: Please continue your medications until treatment is completed or stopped by your provider. Discuss any questions related to medications with your provider. Medications to Continue with No Changes These medications were not printed or sent to your pharmacy Aspirin (aspirin 81 mg oral delayed release tablet) 1 tab(s) Oral Daily for 90 Days. Refills: 1. Next Dose: Aspirin (Aspirin Low Dose 81 mg oral delayed release tablet) 1 tab(s) Oral Daily. Refills: 1. Next Dose: Atenolol (atenolol 50 mg oral tablet) TAKE 1 TABLET BY MOUTH EVERY DAY. Refills: 1. Next Dose: Docusate (Colace sodium 100 mg oral capsule) 1 capsule Oral twice a day as needed for constipation.with plenty of water. Refills: 1. Next Dose: Durable Medical Equipment (Pen Hammond, 30 G x 8 mm BD Ultra Fine II) E11.8 Test blood glucose three times a day.. Refills: 3. Next Dose: GlipiZIDE (glipiZIDE 5 mg oral tablet) TAKE 1 TABLET BY MOUTH TWICE A DAY. Refills: 1. Next Dose: GlipiZIDE (glipiZIDE 5 mg oral tablet) 1 tab(s) Oral twice a day. Refills: 1. Next Dose: GlipiZIDE (glipiZIDE 5 mg oral tablet) 1 tab(s) Oral twice a day. Refills: 0. Next Dose: hydrALAZINE (hydrALAZINE 25 mg oral tablet) 1 tab(s) Oral twice a day for 30 Days. Refills: 5. Next Dose: Insulin Aspart (NovoLOG FlexPen 100 units/mL injectable solution) Subcutaneous Infusion 3 times a day before meals per Sliding Scale. No more than 24 units in a 24 hour period.. Refills: 11. Next Dose: Lorazepam (LORazepam 0.5 mg oral tablet) TAKE 1 TABLET BY MOUTH TWICE A DAY NEEDED FOR ANXIETY. Refills: 0. Next Dose: Lovastatin (lovastatin 20 mg oral tablet) TAKE 1 TABLET BY MOUTH EVERY DAY WITH EVENING MEAL. Refills: 1. Next Dose: Miscellaneous Rx (aero chamber) with albuterol Oral every 6 hours as needed sob /wheeze. Refills: 0. Next Dose: Miscellaneous Rx (FREESTYLE 28G LANCETS) USE TO TEST 4 TIMES DAILY. Refills: 11. Next Dose: Miscellaneous Rx (FREESTYLE LITE TEST STRIP) USE TO TEST 4 TIMES DAILY. Refills: 11. Next Dose: Olanzapine (olanzapine 20 mg oral tablet) 1 tab(s) Oral Daily. Refills: 1. Next Dose: Polyethylene Glycol 3350 (polyethylene glycol 3350 oral powder for reconstitution) 17 gram Oral Daily in the morning as needed Other. dissolve in water or juice.. Refills: 1. Next Dose: Senna (senna - oral tablet) 1 tab(s) Oral Daily at Bedtime. Per med rec 03/19/16 with the pt's DARIANA. Next Dose: Venlafaxine (venlafaxine 150 mg oral capsule, extended release) 1 capsule Oral Daily. Refills: 0. Next Dose: Venlafaxine (venlafaxine 150 mg oral capsule, extended release) 1 capsule Oral Daily. Refills: 0. Next Dose: Venlafaxine (venlafaxine 75 mg oral capsule, extended release) 1 capsule Oral Daily. Refills: 0. Next Dose: Venlafaxine (venlafaxine 75 mg oral capsule, extended release) 1 capsule Oral Daily. Refills: 0. Next Dose: Allergy Info:?? NKA Medications Given This Visit Future Orders ?No future orders Vital Signs Height 170.18 cm Weight BMI Blood Pressure / Temperature Pulse Rate Respiratory Rate 02 Sat Mode of Delivery / You can now view a summary of your hospital visit from the comfort of your home through a free online portal called [employer]. [employer] is a website that allows you to securely view your medical information including discharge summary, medications and follow-up visits. ??You can alsosend a secure electronic message to your doctor???s office to request appointments, renew medications or just ask a question. You can enroll at [email or web address] or register during your next office visit. Disclaimer:?? The information provided is of a general nature and is intended to be used in conjunction with the recommendations and advice of your health care practitioner. ??Every effort has been made to ensure that the information provided is accurate and complete at the time it is provided to you however, as your needs change, or, as new ??information becomes available, different or additional instructions may be required. If you have questions, please consult with your primary care provider or pharmacist, as appropriate. ??This information is not intended to serve as substitution for assessment and evaluation by a qualified health care provider. If you do not have a primary care provider, you may find a [facility] provider by calling [facility] Link at [phone]. For information about the plan of care including goals and instructions for your diagnosis, please see the patient education orders section of this document. Patient Education Materials?? The content of this educational material or handout may have been modified, supplemented, or adapted from its original content and format to support your individualized medical care. Patient Care team information Care Team Personnel Name: Kayy Pabon NP Position: S PCO Associate Professional Member Role: PCP Address: Address: [address] [place] [address]- Care Team Related Persons Name: MYLES, JONI Address: home [address] [place] [address]
--- OUTSIDE RECORDS SUMMARY | 2023-03-15 08:46 | XMS_ITS | Continuity of Care Document ---
Author Name Unknown Organization [facility] Address [address] [place] [address]- Care Team Providers Care Client Success Manager Name Role Phone Kayy Pabon NP Primary Care Physician [phone] Encounter [facility] Date(s): 08/15/22 - [facility] [address] [place] [address]- Encounter Diagnosis Diabetes mellitus(Discharge Diagnosis) - 08/20/22 Attending Physician: Kayy Pabon NP Allergies, Adverse [...] tetanus-diphtheria toxoids (Td) 12/22/04 Given 1Result Comment: [facility] [id number] 2Result Comment: [facility] [id number] 3Admin Note: vis 03/20/13 4Admin Note: Pt reports received while in hospital. [facility] Medications aero chamber aero [...] 09/15/21 12:58:00 EST, Route to Pharmacy Electronically, [facility]/pharmacy #2071, Partial fill upon patient request if the prescription is for a schedule II opioid drug. Start Date: 09/15/21 Stop Date: 03/14/22 Status: Ordered Aspirin Low Dose 81 mg oral delayed release tablet 1 tablet, By Mouth, Daily, # 90 tablet, 1 Refills, [facility], 170.18, cm, 02/12/22 10:54:00 EDT, Height Start Date: 03/22/22 Status: Ordered atenolol 50 mg oral tablet See Instructions, TAKE 1 TABLET BY MOUTH EVERY DAY, # 180 tablet, Refills 1, Tot. Refills 1, Maintenance, 02/12/22 11:12:00 EDT, Instructions Replace Required Details, Route to Pharmacy Electronically, [facility]/pharmacy #2071, 170.18, cm, 02/12/22 10:54:0... Start Date: 02/12/22 Status: Ordered Colace sodium 100 mg oral capsule 100 mg, 1, capsule, By Mouth, 2 times a day, PRN, with plenty of water, # 60 capsule, Refills 1, Tot. Refills 1, Maintenance, for constipation, 10/28/18 11:12:39 EST, Route to Pharmacy Electronically, [id number], [facility]/pharmacy... Start Date: 10/28/18 Status: Ordered FREESTYLE 28G [...] tablet, Refills 0, Route to Pharmacy Electronically, [facility]854 Start Date: 07/31/21 Status: Ordered glipiZIDE 5 mg oral tablet See Instructions, TAKE 1 TABLET BY MOUTH TWICE A DAY, # 180 tablet, Refills 1, Tot. Refills 1, Instructions Replace Required Details, Route to Pharmacy Electronically, [facility]1016 Start Date: 10/13/21 Status: Ordered glipiZIDE 5 mg oral tablet 1, tablet, By Mouth, 2 times a day, # 180 tablet, Refills 1, Route to Pharmacy Electronically, [facility] 15209, 170.18, cm, 02/12/22 10:54:00 EDT, Height Start Date: 03/22/22 Status: Ordered LORazepam 0.5 mg oral tablet See Instructions, TAKE 1 TABLET BY MOUTH TWICE A DAY NEEDED FOR ANXIETY, # 42 tablet, 0 Refills,Soft Stop, 08/15/22 13:09:00 EST, [facility]/pharmacy #2071, 170.18, cm, 06/27/22 13:34:00 EDT, Height Start Date: 08/15/22 Status: Ordered lovastatin 20 mg oral tablet See Instructions, TAKE 1 TABLET BY MOUTH EVERY DAY WITH EVENING MEAL, # 90 tablet, 1 Refills, [facility] 67003, 170.18, cm, 02/12/22 10:54:00 EDT, Height Start Date: 03/22/22 Status: Ordered NovoLOG FlexPen 100 units/mL injectable solution See Instructions, Subcutaneous Infusion 3 times a day before meals per Sliding Scale. No more than 24 units in a 24 hour period., # 3 mL, 11 Refills, [facility]: [facility]21 Status: Ordered olanzapine 20 mg oral tablet 1 tablet, By Mouth, Daily, # 90 tablet, 1 Refills, Maintenance, 06/08/22 9:05:00 EDT, [facility], 170.18, cm, 02/12/22 10:54:00 EDT, Height Start Date: 06/08/22 Status: Ordered Pen [place], 30 G x 8 mm BD Ultra [...] # 90 capsule, 0 Refills, [facility], 170.18, cm, 02/12/22 10:54:00EDT, Height Start Date: 03/22/22 Status: Ordered venlafaxine 150 mg oral capsule, extended release 1 capsule, By Mouth, Daily, # 90 capsule, 0 Refills, [facility] Start Date: 12/26/21 Status: Ordered venlafaxine 75 mg oral capsule, extended release 1 capsule, By Mouth, Daily, # 90 capsule, 0 Refills, [facility], 170.18, cm, 02/12/22 10:54:00EDT, Height Start Date: 03/22/22 Status: Ordered venlafaxine 75 mg oral capsule, extended release 1 capsule, By Mouth, Daily, # 90 capsule, 0 Refills, [facility] Start Date: 12/26/21 Status: Ordered Problem List [...] Diagnosis Diagnosis Type Effective Dates Health Status Cl inical Service Informant Diabetes mellitus Discharge Diagnosis 08/20/22 Social History Social History Type Response Smoking Status Former smoker; Type: Cigarettes; Other: 1ppd; entered on: 01/08/17 Sex Note * Estephania Alatorre [place]: PERFORM, SIGN, VERIFY Event Display: Patient Education/Instruction Authored Date: [id number] [facility] *BMP Quab Adlt Med Bltn Clinical Summary Name NAYELI BUENO Age 66 Years 1955 PCP Cm ROSARIO, Kayy Kulkarni PCP Visit Date 08/15/2022 12:40:00 Additional Instructions: Scheduled Appointments?? Future Appointments ?No Future Appointments Scheduled Follow-Up Instructions ?? Diagnosis Medications: Please continue your medications until treatment is completed or stopped by your provider. Discuss any questions related to medications with your provider. Medications to Continue with No Changes [facility]/pharmacy #[id number], [address], [place] [id number], [phone] Lorazepam (LORazepam 0.5 mg oral tablet) TAKE 1 TABLET BY MOUTH TWICE A DAY NEEDED FOR ANXIETY. Refills: 0. Next Dose: These medications were not printed or sent [...] 1. Next Dose: Durable Medical Equipment (Pen Leight[place], 30 G x 8 mm BD Ultra [...] twice a day. Refills: 0. Next Dose: Insulin Aspart (NovoLOG FlexPen 100 units/mL injectable solution) Subcutaneous Infusion 3 times a day before meals per Sliding Scale. No more than 24 units in a 24 hour period.. Refills: 11. Next Dose: Lovastatin (lovastatin 20 mg oral tablet) TAKE 1 TABLET BY MOUTH EVERY DAY WITH EVENING MEAL. Refills: 1. Next Dose: Miscellaneous Rx (aero chamber) with albuterol Oral every 6 hours as needed sob /wheeze. Refills: 0. Next Dose: Miscellaneous Rx (FREESTYLE 28G LANCETS) USE TO TEST 4 TIMES DAILY. Refills: 11. Next Dose: Miscellaneous Rx (FREESTYLE 28G LANCETS) [...] Per med rec 03/19/16 with the pt's .ROSANNA. Next Dose: Venlafaxine (venlafaxine 150 mg oral [...] Orders ?No future orders Vital Signs Height Weight BMI Blood Pressure / Temperature Pulse Rate Respiratory Rate 02 Sat Mode of Delivery / You can now view a summary of your hospital visit from the comfort of your home through a free online portal called [employer]. [employer] is a website that allows you to securely view your medical information including discharge summary, medications and follow-up visits. ??You can alsosend a secure electronic message to your doctor???s office to request appointments, renew medications or just ask a question. You can enroll at [email or web address] or register during your next office visit. [...] primary care provider, you may find a [facility] provider by calling [facility] Link at [phone]. For information about the plan of care [...] Associate Professional Member Role: PCP Address: Address: [address] [place] [address]- Care Team Related Persons Name: JONI BUEON Address: [address] [address]
--- OUTSIDE RECORDS SUMMARY | 2023-03-15 08:47 | XMS_ITS | Continuity of Care Document ---
Author Name Unknown Organization [facility] Address [address] [place] [address]- Care Team Providers Care Material Control Clerk Name Role Phone Cm ROSARIO, Kayy Kulkarni Primary Care Physician Encounter [facility] Date(s): 06/04/22 [facility] [address] [place] [address]- [place] Allergies, Adverse Reactions, Alerts No Known [...] toxoids (Td) 12/22/04 Given 1Result Comment: [facility] [id number] 2Result Comment: [facility] [id number] 3Admin Note: vis 03/20/13 4Admin Note: Pt [...] 09/15/21 12:58:00 EST, Route to Pharmacy Electronically, [facility]pharmacy #2071, Partial fill upon patient request if the prescription is for a schedule II opioid drug. Start Date: 09/15/21 Stop Date: 03/14/22 Status: Ordered Aspirin Low Dose 81 mg oral delayed release tablet 1 tablet, By Mouth, Daily, # 90 tablet, 1 Refills, [facility] [address]62, 170.18, cm, 02/12/22 10:54:00 EDT, Height Start Date: 03/22/22 Status: Ordered atenolol 50 mg oral tablet See Instructions, TAKE 1 TABLET BY MOUTH EVERY DAY, # 180 tablet, Refills 1, Tot. Refills 1, Maintenance, 02/12/22 11:12:00 EDT, Instructions Replace Required Details, Route to Pharmacy Electronically, [facility]/pharmacy #2071, 170.18, cm, 02/12/22 10:54:0... Start Date: 02/12/22 Status: Ordered Colace sodium 100 mg oral capsule 100 mg, 1, capsule, By Mouth, 2 times a day, PRN, with plenty of water, # 60 capsule, Refills 1, Tot. Refills 1, Maintenance, for constipation, 10/28/18 11:12:39 EST, Route to Pharmacy Electronically, [id number], [facility]/pharmacy... Start Date: 10/28/18 Status: Ordered FREESTYLE 28G [...] tablet, Refills 0, Route to Pharmacy Electronically, [facility] [address]32 Start Date: 07/31/21 Status: Ordered glipiZIDE 5 mg oral tablet See Instructions, TAKE 1 TABLET BY MOUTH TWICE A DAY, # 180 tablet, Refills 1, Tot. Refills 1, Instructions Replace Required Details, Route to Pharmacy Electronically, [facility]24 Start Date: 10/13/21 Status: Ordered glipiZIDE 5 mg oral tablet 1, tablet, By Mouth, 2 times a day, # 180 tablet, Refills 1, Route to Pharmacy Electronically, [facility] , 170.18, cm, 02/12/22 10:54:00 EDT, Height Start Date: 03/22/22 Status: Ordered hydrALAZINE 25 mg oral tablet 1, tablet, By Mouth, 2 times a day, for 30 days, # 60 tablet, Refills 5, Tot. Refills 5, Physician Stop 08/11/22 11:12:00 EST, 02/12/22 11:12:00 EDT, Route to Pharmacy Electronically, [facility]/pharmacy #2071, 170.18, cm, 02/12/22 10:54:00 EDT, Height Start Date: 02/12/22 Stop Date: 08/11/22 Status: Ordered LORazepam 0.5 mg oral tablet See Instructions, TAKE 1 TABLET BY MOUTH TWICE A DAY NEEDED FOR ANXIETY, # 42 tablet, 0 Refills,Soft Stop, 04/13/22 14:38:00 EDT, [facility]/pharmacy #1, 170.18, cm, 02/12/22 10:54:00 EDT, Height Start Date: 04/13/22 Status: Ordered lovastatin 20 mg oral tablet See Instructions, TAKE 1 TABLET BY MOUTH EVERY DAY WITH EVENING MEAL, # 90 tablet, 1 Refills, [facility] , 170.18, cm, 02/12/22 10:54:00 EDT, Height Start Date: 03/22/22 Status: Ordered NovoLOG FlexPen 100 units/mL injectable solution See Instructions, Subcutaneous Infusion 3 times a day before meals per Sliding Scale. No more than 24 units in a 24 hour period., # 3 mL, 11 Refills, Maintenance, 09/15/21 12:59:00 EST, [facility] Start Date: 09/15/21 Status: Ordered olanzapine 20 mg oral tablet 1 tablet, By Mouth, Daily, # 90 tablet, 1 Refills, Maintenance, 06/08/22 9:05:00 EDT, [facility], 170.18, cm, 02/12/22 10:54:00 EDT, Height Start Date: 06/08/22 Status: Ordered Pen [place], 30 G x 8 mm BD Ultra [...] # 90 capsule, 0 Refills, [facility], 170.18, cm, 02/12/22 10:54:00EDT, Height Start Date: 03/22/22 Status: Ordered venlafaxine 150 mg oral capsule, extended release 1 capsule, By Mouth, Daily, # 90 capsule, 0 Refills, [facility] Start Date: 12/26/21 Status: Ordered venlafaxine 75 mg oral capsule, extended release 1 capsule, By Mouth, Daily, # 90 capsule, 0 Refills, [facility], 170.18, cm, 02/12/22 10:54:00EDT, Height Start Date: 03/22/22 Status: Ordered venlafaxine 75 mg oral capsule, extended release 1 capsule, By Mouth, Daily, # 90 capsule, 0 Refills, [facility] [address] Start Date: 12/26/21 Status: Ordered Problem List [...] Professional Member Role: PCP Address: Address: [address] [place] [address]- Care Team Related Persons Name: JONI BUENO Address: home [address] [place] [address]
--- OUTSIDE RECORDS SUMMARY | 2023-03-15 08:47 | XMS_ITS | Continuity of Care Document ---
Author Name Unknown Organization [facility] Address [address] [place] [address]- Care Team Providers Care Relationship Manager Name Role Phone Cm ROSARIO, Kayy Kulkarni Primary Care Physician Encounter [facility] Date(s): 10/24/22 - 11/23/22 [facility] [address] [place] [address]- [place] Allergies, Adverse Reactions, Alerts No Known [...] 1Result Comment: [facility] [id number] 2Result Comment: [facility] [id number] 3Admin Note: vis 03/20/13 4Admin Note: Pt [...] 09/15/21 12:58:00 EST, Route to Pharmacy Electronically, [facility]/pharmacy #[id number], Partial fill upon patient request if the prescription is for a schedule II opioid drug. Start Date: 09/15/21 Stop Date: 03/14/22 Status: Ordered Aspirin Low Dose 81 mg oral delayed release tablet See Instructions, TAKE 1 TABLET BY MOUTH EVERY DAY, # 90 tablet, 1 Refills, Maintenance, 09/17/22 8:39:00 EST, [facility] ST[facility] 70962, 170.18, cm, 06/27/22 13:34:00 EDT, Height Start Date: 09/17/22 Status: Ordered Aspirin Low Dose 81 mg oral delayed release tablet 1 tablet, By Mouth, Daily, # 90 tablet, 1 Refills, [facility] 23334, 170.18, cm, 02/12/22 10:54:00 EDT, Height Start Date: 03/22/22 Status: Ordered atenolol 50 mg oral tablet See Instructions, TAKE 1 TABLET BY MOUTH EVERY DAY, # 180 tablet, Refills 1, Tot. Refills 1, Maintenance, 02/12/22 11:12:00 EDT, Instructions Replace Required Details, Route to Pharmacy Electronically, [facility]/pharmacy #[id number], 170.18, cm, 02/12/22 10:54:0... Start Date: 02/12/22 Status: Ordered Colace sodium 100 mg oral capsule 100 mg, 1, capsule, By Mouth, 2 times a day, PRN, with plenty of water, # 60 capsule, Refills 1, Tot. Refills 1, Maintenance, for constipation, 10/28/18 11:12:39 EST, Route to Pharmacy Electronically, [id number], [facility]/pharmacy... Start Date: 10/28/18 Status: Ordered FREESTYLE 28G [...] tablet, Refills 0, Route to Pharmacy Electronically, [facility]25 Start Date: 07/31/21 Status: Ordered glipiZIDE 5 mg oral tablet See Instructions, TAKE 1 TABLET BY MOUTH TWICE A DAY, # 180 tablet, Refills 1, Tot. Refills 1, Instructions Replace Required Details, Route to Pharmacy Electronically, [facility] 15838 Start Date: 10/13/21 Status: Ordered glipiZIDE 5 mg oral tablet 1, tablet, By Mouth, 2 times a day, # 180 tablet, Refills 1, Route to Pharmacy Electronically, [facility] 90276, 170.18, cm, 02/12/22 10:54:00 EDT, Height Start Date: 03/22/22 Status: Ordered LORazepam 0.5 mg oral tablet See Instructions, TAKE 1 TABLET BY MOUTH TWICE A DAY NEEDED FOR ANXIETY, # 42 tablet, 0 Refills,Soft Stop, 10/24/22 20:13:00 EST, [facility]pharmacy #[id number], 170.18, cm, 06/27/22 13:34:00 EDT, Height Start Date: 10/24/22 Status: Ordered lovastatin 20 mg oral tablet See Instructions, TAKE 1 TABLET BY MOUTH EVERY DAY WITH EVENING MEAL, # 90 tablet, 1 Refills, [facility] 16099, 170.18, cm, 02/12/22 10:54:00 EDT, Height Start Date: 03/22/22 Status: Ordered NovoLOG FlexPen 100 units/mL injectable solution See Instructions, Subcutaneous Infusion 3 times a day before meals per Sliding Scale. No more than 24 units in a 24 hour period., # 3 mL, 11 Refills, Maintenance, 09/15/21 12:59:00 EST, [facility] Start Date: 09/15/21 Status: Ordered olanzapine 20 mg oral tablet 1 tablet, By Mouth, Daily, # 90 tablet, 1 Refills, Maintenance, 06/08/22 9:05:00 EDT, [facility] ST[facility] 29758, 170.18, cm, 02/12/22 10:54:00 EDT, Height Start Date: 06/08/22 Status: Ordered Pen Mar[place], 30 G x 8 mm BD Ultra [...] 90 capsule, 1 Refills, 09/08/22 13:58:00 EST, [facility]/pharmacy #[id number], 170.18, cm, 06/27/22 13:34:00 EDT, Height Start Date: 09/08/22 Status: Ordered venlafaxine 150 mg oral capsule, extended release 1 capsule, By Mouth, Daily, # 90 capsule, 0 Refills, [facility]4747 Start Date: 12/26/21 Status: Ordered venlafaxine 75 mg oral capsule, extended release 1 capsule, By Mouth, Daily, # 90 capsule, 1 Refills, 09/08/22 13:58:00 EST, [facility]/pharmacy #2071, 170.18, cm, 06/27/22 13:34:00 EDT, Height Start Date: 09/08/22 Status: Ordered venlafaxine 75 mg oral capsule, extended release 1 capsule, By Mouth, Daily, # 90 capsule, 0 Refills, [facility]4410 Start Date: 12/26/21 Status: Ordered Problem List [...] Associate Professional Member Role: PCP Address: Address: [address] [place] [address]- Care Team Related Persons Name: JONI BUENO Address: [address] [address]
--- OUTSIDE RECORDS SUMMARY | 2023-03-15 08:47 | XMS_ITS | Continuity of Care Document ---
Author Name Unknown Organization [facility] Address [address] [place] [address]- Care Team Providers Care Fuel Quality Tech Name Role Phone Cm ROSARIO, Kayy Kulkarni Primary Care Physician Encounter [facility] Date(s): 07/20/22 - 08/19/22 [facility] [address] [place] [address]- [place] Allergies, Adverse Reactions, Alerts No Known [...] 12/22/04 Given 1Result Comment: [facility] [id number] 2Result Comment: [facility] [id number] 3Admin Note: vis 03/20/13 4Admin Note: Pt [...] 09/15/21 12:58:00 EST, Route to Pharmacy Electronically, [facility]/pharmacy #[id number], Partial fill upon patient request if the prescription is for a schedule II opioid drug. Start Date: 09/15/21 Stop Date: 03/14/22 Status: Ordered Aspirin Low Dose 81 mg oral delayed release tablet 1 tablet, By Mouth, Daily, # 90 tablet, 1 Refills, [facility] ST[facility] 06631, 170.18, cm, 02/12/22 10:54:00 EDT, Height Start Date: 03/22/22 Status: Ordered atenolol 50 mg oral tablet See Instructions, TAKE 1 TABLET BY MOUTH EVERY DAY, # 180 tablet, Refills 1, Tot. Refills 1, Maintenance, 02/12/22 11:12:00 EDT, Instructions Replace Required Details, Route to Pharmacy Electronically, [facility]/pharmacy #[id number], 170.18, cm, 02/12/22 10:54:0... Start Date: 02/12/22 Status: Ordered Colace sodium 100 mg oral capsule 100 mg, 1, capsule, By Mouth, 2 times a day, PRN, with plenty of water, # 60 capsule, Refills 1, Tot. Refills 1, Maintenance, for constipation, 10/28/18 11:12:39 EST, Route to Pharmacy Electronically, [id number], [facility]/pharmacy... Start Date: 10/28/18 Status: Ordered FREESTYLE [...] tablet, Refills 0, Route to Pharmacy Electronically, [facility]19 Start Date: 07/31/21 Status: Ordered glipiZIDE 5 mg oral tablet See Instructions, TAKE 1 TABLET BY MOUTH TWICE A DAY, # 180 tablet, Refills 1, Tot. Refills 1, Instructions Replace Required Details, Route to Pharmacy Electronically, [facility] ST[facility] Start Date: 10/13/21 Status: Ordered glipiZIDE 5 mg oral tablet 1, tablet, By Mouth, 2 times a day, # 180 tablet, Refills 1, Route to Pharmacy Electronically, [facility] STORE 68738, 170.18, cm, 02/12/22 10:54:00 EDT, Height Start Date: 03/22/22 Status: Ordered LORazepam 0.5 mg oral tablet See Instructions, TAKE 1 TABLET BY MOUTH TWICE A DAY NEEDED FOR ANXIETY, # 42 tablet, 0 Refills,Soft Stop, 08/15/22 13:09:00 EST, [facility]/pharmacy #[id number], 170.18, cm, 06/27/22 13:34:00 EDT, Height Start Date: 08/15/22 Status: Ordered lovastatin 20 mg oral tablet See Instructions, TAKE 1 TABLET BY MOUTH EVERY DAY WITH EVENING MEAL, # 90 tablet, 1 Refills, [facility] 39343, 170.18, cm, 02/12/22 10:54:00 EDT, Height Start Date: 03/22/22 Status: Ordered NovoLOG FlexPen 100 units/mL injectable solution See Instructions, Subcutaneous Infusion 3 times a day before meals per Sliding Scale. No more than 24 units in a 24 hour period., # 3 mL, 11 Refills, Maintenance, 09/15/21 12:59:00 EST, [facility] Start Date: 09/15/21 Status: Ordered olanzapine 20 mg oral tablet 1 tablet, By Mouth, Daily, # 90 tablet, 1 Refills, Maintenance, 06/08/22 9:05:00 EDT, [facility], 170.18, cm, 02/12/22 10:54:00 EDT, Height Start Date: 06/08/22 Status: Ordered Pen Cory, 30 G x 8 mm BD Ultra [...] Mouth, Daily, # 90 capsule, 0 Refills, [facility] 49477, 170.18, cm, 02/12/22 10:54:00EDT, Height Start Date: 03/22/22 Status: Ordered venlafaxine 150 mg oral capsule, extended release 1 capsule, By Mouth, Daily, # 90 capsule, 0 Refills, [facility] 20289 Start Date: 12/26/21 Status: Ordered venlafaxine 75 mg oral capsule, extended release 1 capsule, By Mouth, Daily, # 90 capsule, 0 Refills, [facility] 54405, 170.18, cm, 02/12/22 10:54:00EDT, Height Start Date: 03/22/22 Status: Ordered venlafaxine 75 mg oral capsule, extended release 1 capsule, By Mouth, Daily, # 90 capsule, 0 Refills, [facility] Start Date: 12/26/21 Status: Ordered Problem List [...] Associate Professional Member Role: PCP Address: Address: [address] [place] [id number]- Care Team Related Persons Name: MYLES, JONI Address: home [address] [place] [id number]
--- OUTSIDE RECORDS SUMMARY | 2023-03-15 08:47 | XMS_ITS | Continuity of Care Document ---
Author Name Unknown Organization [facility] Address [address] [place] [address]- Care Team Providers Care Gis Programmer Name Role Phone Cm ROSARIO, Kayy Kulkarni Primary Care Physician Encounter [facility] Date(s): 07/23/22 [facility] [address] [place] [address]- [place] Allergies, Adverse Reactions, Alerts No Known [...] 1Result Comment: [facility] [id number] 2Result Comment: [facility] [id number] 3Admin Note: vis 03/20/13 4Admin Note: Pt [...] 09/15/21 12:58:00 EST, Route to Pharmacy Electronically, [facility]/pharmacy #[id number], Partial fill upon patient request if the prescription is for a schedule II opioid drug. Start Date: 09/15/21 Stop Date: 03/14/22 Status: Ordered Aspirin Low Dose 81 mg oral delayed release tablet 1 tablet, By Mouth, Daily, # 90 tablet, 1 Refills, [facility] 57335, 170.18, cm, 02/12/22 10:54:00 EDT, Height Start Date: 03/22/22 Status: Ordered atenolol 50 mg oral tablet See Instructions, TAKE 1 TABLET BY MOUTH EVERY DAY, # 180 tablet, Refills 1, Tot. Refills 1, Maintenance, 02/12/22 11:12:00 EDT, Instructions Replace Required Details, Route to Pharmacy Electronically, [facility]/pharmacy #[id number], 170.18, cm, 02/12/22 10:54:0... Start Date: 02/12/22 Status: Ordered Colace sodium 100 mg oral capsule 100 mg, 1, capsule, By Mouth, 2 times a day, PRN, with plenty of water, # 60 capsule, Refills 1, Tot. Refills 1, Maintenance, for constipation, 10/28/18 11:12:39 EST, Route to Pharmacy Electronically, [id number], [facility]/pharmacy... Start Date: 10/28/18 Status: Ordered FREESTYLE [...] tablet, Refills 0, Route to Pharmacy Electronically, [facility]01 Start Date: 07/31/21 Status: Ordered glipiZIDE 5 mg oral tablet See Instructions, TAKE 1 TABLET BY MOUTH TWICE A DAY, # 180 tablet, Refills 1, Tot. Refills 1, Instructions Replace Required Details, Route to Pharmacy Electronically, [facility] Start Date: 10/13/21 Status: Ordered glipiZIDE 5 mg oral tablet 1, tablet, By Mouth, 2 times a day, # 180 tablet, Refills 1, Route to Pharmacy Electronically, [facility] 85054, 170.18, cm, 02/12/22 10:54:00 EDT, Height Start Date: 03/22/22 Status: Ordered LORazepam 0.5 mg oral tablet See Instructions, TAKE 1 TABLET BY MOUTH TWICE A DAY NEEDED FOR ANXIETY, # 42 tablet, 0 Refills,Soft Stop, 08/15/22 13:09:00 EST, [facility]/pharmacy #2071, 170.18, cm, 06/27/22 13:34:00 EDT, Height Start Date: 08/15/22 Status: Ordered lovastatin 20 mg oral tablet See Instructions, TAKE 1 TABLET BY MOUTH EVERY DAY WITH EVENING MEAL, # 90 tablet, 1 Refills, [facility] 43386, 170.18, cm, 02/12/22 10:54:00 EDT, Height Start Date: 03/22/22 Status: Ordered NovoLOG FlexPen 100 units/mL injectable solution See Instructions, Subcutaneous Infusion 3 times a day before meals per Sliding Scale. No more than 24 units in a 24 hour period., # 3 mL, 11 Refills, Maintenance, 09/15/21 12:59:00 EST, [facility] Start Date: 09/15/21 Status: Ordered olanzapine 20 mg oral tablet 1 tablet, By Mouth, Daily, # 90 tablet, 1 Refills, Maintenance, 06/08/22 9:05:00 EDT, [facility], 170.18, cm, 02/12/22 10:54:00 EDT, Height Start Date: 06/08/22 Status: Ordered Pen Kinde, 30 G x 8 mm BD Ultra [...] Mouth, Daily, # 90 capsule, 0 Refills, [facility] 38851, 170.18, cm, 02/12/22 10:54:00EDT, Height Start Date: 03/22/22 Status: Ordered venlafaxine 150 mg oral capsule, extended release 1 capsule, By Mouth, Daily, # 90 capsule, 0 Refills, [facility]851 Start Date: 12/26/21 Status: Ordered venlafaxine 75 mg oral capsule, extended release 1 capsule, By Mouth, Daily, # 90 capsule, 0 Refills, [facility], 170.18, cm, 02/12/22 10:54:00EDT, Height Start Date: 03/22/22 Status: Ordered venlafaxine 75 mg oral capsule, extended release 1 capsule, By Mouth, Daily, # 90 capsule, 0 Refills, [facility] Start Date: 12/26/21 Status: Ordered Problem List [...] Associate Professional Member Role: PCP Address: Address: [address] [place] [id number]- Care Team Related Persons Name: MYLES, JONI Address: home [address] [place] [address]
--- NOTE | 2023-03-15 09:22 | PC.NURSE ---
pt arrived via ems from home; pt stated he slid out of recliner; per ems they assisted into recliner pt had syncope episode lasting 20-30 secs; no headstrike. pt denies pain/injury; no bruising/abrasions. C-colar in place. neuros intact. respirations even and unlabored. AxOx4. VSS. nsr on monitor 73 bpm, sats 93% ra. lung sounds CTA. small scratches to bilat feet. no edema. +pedal pulses bilat. at bedside. call henson within reach. awaiting primary eval.
--- NOTE | 2023-03-15 09:33 | ECG_ITS ---
Test Reason : REPEAT EKG Blood Pressure : / mmHG Vent. Rate : 073 BPM Atrial Rate : 073 BPM P-R Int : 166 ms QRS Dur : 140 ms QT Int : 430 ms P-R-T Axes : 046 182 -42 degrees QTc Int : 473 ms Normal sinus rhythm Right bundle branch block Abnormal ECG When compared with ECG of 15-MAR-2023 08:48, Left posterior fascicular block is no longer Present Referred By: Felix Gorman Electronically Signed By:Dev Hammer
[2023-03-15 10:04] LABS: MANUAL DIFF FLAG NO
[2023-03-15 10:06] LABS: Basophils Percent Auto 0.3 % (0-2); Eosinophils Percent Auto 0.3 % (0-4); Hematocrit 41.6 % (42.0-52.0); Hemoglobin 13.6 g/dl (14.0-18.0); Imm Gran Abs Auto 0.04 X10*3/uL (0.00-0.03); Imm Gran Pct Auto 0.5 % (0.0-0.4); Lymphocytes Absolute Auto 0.6 X10*3/uL (1.2-4.9); Lymphocytes Percent Auto 6.6 % (20-40); Mean Corpuscular HGB Conc 32.7 g/dl (31.0-36.0); Mean Corpuscular Hemoglobin 29.6 pg (27.0-33.0); Mean Corpuscular Volume 90.4 fL (80.0-98.0); Mean Platelet Volume 9.1 fL (9.4-12.4); Monocytes Absolute Auto 0.9 X10*3/uL (0.1-1.2); Monocytes Percent Auto 9.6 % (2-11); Neutrophils Absolute Auto 7.3 x10*3/uL (2.0-8.3); Neutrophils Percent Auto 82.7 % (45-73); Platelet Count 122 X10*3/uL (160-400); Red Cell Distribution Width 14.5 % (11.0-16.0); White Blood Count 8.8 X10*3/uL (4.8-10.8)
[2023-03-15 10:12] LABS: INTERNATIONAL NORM RATIO 1.1 (0.9-1.1); Prothrombin Time 12.5 SEC (10.0-13.1)
[2023-03-15 10:15] LABS: Partial Thromboplastin Time 35.3 SEC (26.0-36.4)
[2023-03-15 10:23] LABS: Alanine Aminotransferase 11 U/L (0-40); Albumin Level 3.1 g/dL (3.5-5.0); Alkaline Phosphatase 114 U/L (39-117); Anion Gap 12 (12-20); Aspartate Amino Transferase 12 U/L (5-37); Bilirubin Total 0.5 mg/dL (0.0-1.0); Blood Urea Nitrogen 23 mg/dL (9-16); Calcium 8.7 mg/dL (8.4-10.2); Carbon Dioxide 24 mmol/L (22-29); Chloride 104 mmol/L (96-108); Creatinine Clr Calc Pharmacy 38.1; Estimated Glomerular Filt Rate 40; Glucose Random 193 mg/dL (60-115); Potassium 4.5 mmol/L (3.3-5.1); Sodium 135 mmol/L (135-145); Total Protein 6.2 g/dL (6.5-8.0)
[2023-03-15 10:35] LABS: Troponin-I High Sensitivity 258.8 ng/L (<3.5-35.0)
--- NOTE | 2023-03-15 10:56 | ED.GENADULT ---
HPI - General Adult General Chief complaint: Syncope Stated complaint: Fall, syncope per EMS Time Seen by Provider: 03/15/23 08:52 Source: patient Mode of arrival: ambulatory Limitations: no limitations History of Present Illness HPI narrative: 67-year-old with past medical history of 4 stents, COVID-19 hypoxia, UTI, L3 vertebral fracture usually ambulate with walker presents to the ED for evaluation for fall and syncope. Patient states he was walking backwards toward his chair with the walker and he missed the chair and fell unto his knees. Patient denies hitting head, neck, or any other body parts. Fall was witnessed by who also states patient did not hit his head/neck, or any other body parts on the ground or elsewhere. States patient just fell onto his knees. She could lift them up so she called ambulance. When ambulance placed patient on the stretcher patient passed out flank 20 seconds. Related Data Home Medications Medication Instructions Recorded Confirmed hydralazine 25 mg tablet 25 mg PO BID 06/06/20 03/15/23 lovastatin 20 mg tablet 20 mg PO BEDTIME 06/06/20 03/15/23 venlafaxine 150 mg 150 mg PO DAILY 06/06/20 03/15/23 capsule,extended release 24 hr venlafaxine 75 mg capsule,extended 75 mg PO DAILY 06/06/20 03/15/23 release 24 hr aspirin 81 mg tablet,delayed 1 tab PO DAILY 05/18/22 03/15/23 release glipizide 5 mg tablet 1 tab PO BID 05/18/22 03/15/23 lorazepam 0.5 mg tablet 1 tab PO BID PRN anxiety 05/18/22 03/15/23 olanzapine 20 mg tablet 1 tab PO BEDTIME 05/18/22 03/15/23 Previous Rx's Medication Instructions Recorded atenolol 50 mg tablet 50 mg PO DAILY #0 tabs 07/22/20 Allergies Allergy/AdvReac Type Severity Reaction Status Date / Time No Known Allergies Allergy Unknown NKA Verified 07/05/20 17:17 Review of Systems Review of Systems: Syncope Yes all other systems are reviewed and are negative [facility] Past Medical History Medical History Abnormal EKG Blood bacterial culture positive CAD (coronary artery disease) CHF (congestive heart failure) CKD (chronic kidney disease), stage III COPD (chronic obstructive pulmonary disease) COVID-19 COVID-19 CVA (cerebral vascular accident) Diabetes Dizziness Hypertension NSTEMI (non-ST elevated myocardial infarction) Type 2 diabetes mellitus Surgical History History of percutaneous coronary intervention Social History Social History Household Members: Spouse Housing: Apartment Do you presently have visiting nurse or other home services: No Alcohol intake: never Patient Tobacco Use Status: Never used Tobacco Smoked in Last 30 Days: No e-Cigarette/Vaping Use: Never Used Second Hand Smoke Exposure: No Use of substances other than those prescribed or required for medical reasons: No Currently Displaying Signs/Symptoms of Drug Intoxication Withdrawal: No Have you been hit, kicked, punched, or otherwise hurt by someone within the past year? If so, by whom?: No Do you feel safe in your current relationship?: Yes Advance Directives: Yes Advance Directives on File: Yes Advance Directives Date on File: 05/31/20 Do you have thoughts of harming others: None Do you have a plan to hurt others: No Plan Recently lost weight without trying: No Nutrition Risks: Dental problems service: No Current occupational status: retired Physical Exam ED Vital Signs: Vital Signs - 24 hr 03/15/23 08:42 03/15/23 08:46 Temperature 99.1 F Pulse Rate 76 Respiratory Rate 23 H Blood Pressure 103/56 L Pulse Oximetry 94 94 Oxygen Delivery Method Nasal Cannula Nasal Cannula BMI result Body Mass Index 24.0 Const General: cooperative, healthy appearing, comfortable, no acute distress, well developed, alert and awake Orientation/consciousness: oriented to person, oriented to place, oriented to time and patient oriented x3 HENMT Head: Yes normal to inspection, Yes No palpable skull fracture present, Yes normocephalic and Yes atraumatic Ears: hearing grossly normal bilaterally, external ears normal, TM's normal bilaterally, TM normal on the right, TM normal on the left, EAC's normal, mastoids normal and no periauricular adenopathy Eyes General: appearance normal, both eyes and all related structures Neck Neck: Yes normal visual inspection, Yes full ROM, Yes no lymphadenopathy, Yes no meningeal signs, Yes trachea midline, Yes supple, No anterior neck swelling and No tender Chest Chest palpation & inspection: normal inspection of the chest and normal palpation of entire chest wall Resp Effort & Inspection: normal respiratory effort and able to speak in complete sentences Auscultation: clear to auscultation bilaterally Cardio Jugular venous distension: no JVD Heart sounds: S1 normal heart sound present and S2 normal heart sound present GI Inspection: Yes normal to inspection and No abdominal wall ecchymosis Palpation (GI): Soft to palpation, not firm, nontender, no guarding and not rigid General: No CVA tenderness and Yes no CVA tenderness Back/Spine/Pelvis Back: no CVA tenderness, No CVA tenderness and No back tenderness Skin General skin exam: no rashes or lesions noted and elasticity normal Neuro General: oriented to person, oriented to place, oriented to time, patient oriented x3, gait normal, tone normal, moves all extremities, Normal light touch and pain sensation, no meningeal signs, no focal motor deficits, CN's II-XI intact bilaterally and normal sensation to monofilament Extrem General: Yes normal to inspection and Yes full ROM Psych Appearance: grossly normal, well kempt and not disheveled Medications Administered Generic Name Dose Route Start Last Admin Trade Name Freq PRN Reason Stop Dose Admin Aspirin 81 mg 03/16/23 09:00 03/17/23 07:34 Aspirin Enteric Coated 81 Mg Tablet. PO 81 mg DAILY RASHI Administration Atenolol 50 mg 03/16/23 09:00 03/17/23 07:34 Atenolol 50 Mg Tablet PO 50 mg DAILY RASHI Administration Protocol Enoxaparin Sodium 40 mg 03/15/23 18:00 03/16/23 17:11 Enoxaparin Sodium 40 Mg/0.4 Ml Syringe SUBCUT 40 mg Q24H RASHI Administration Hydralazine HCl 25 mg 03/15/23 21:00 03/17/23 09:04 Hydralazine Hcl 25 Mg Tablet PO 25 mg BID RASHI Administration Protocol Insulin Human Lispro 0 unit 03/15/23 21:00 03/17/23 07:50 Insulin Lispro 100 Unit/Ml 3 Ml Vial SUBCUT Not Given QIDACHS [facility] Protocol Olanzapine 20 mg 03/15/23 21:00 03/16/23 20:17 Olanzapine 10 Mg Tablet PO 20 mg BEDTIME RASHI Administration Pravastatin Sodium 20 mg 03/15/23 21:00 03/16/23 20:17 Pravastatin Sodium 20 Mg Tablet PO 20 mg BEDTIME RASHI Administration Sodium Chloride 3 ml 03/16/23 00:00 03/17/23 07:35 0.9 % Sodium Chloride Flush 3 Ml Syringe IVFLUSH 3 ml QSHIFT RASHI Administration Venlafaxine HCl 75 mg 03/16/23 09:00 03/17/23 09:06 Venlafaxine Hcl Er 75 Mg Cap.Er.24h PO 75 mg DAILY RASHI Administration Venlafaxine HCl 150 mg 03/16/23 09:00 03/17/23 07:35 Venlafaxine Hcl Er 150 Mg Cap.Er.24h PO 150 mg DAILY RASHI Administration Discontinued Medications Generic Name Dose Route Start Last Admin Trade Name Paulq PRN Reason Stop Dose Admin Sodium Chloride 1,000 mls @ 999 mls/hr 03/15/23 10:39 03/15/23 13:55 Ns IV 03/15/23 11:39 Infused .Q1H1M STA Infusion Iohexol 100 ml 03/15/23 16:38 03/15/23 16:38 Iohexol 350 Mg/Ml 100 Ml Infus..Btl IV 03/15/23 16:39 65 ml ONCE ONE Administration Medical Decision Making Medical Decision Making MDM Narrative: 67-year-old male brought to the ED for falling to his knees. Witnessed by . Patient and states patient did not hit his head neck or any body parts to the ground or object. Patient states he fell to his knees while trying to sit on a chair. Patient states he missed the chair. Patient denies any physical complaints. Patient having medical workup including EKG labs troponin due to syncope. Patient denies any chest pain. Patient denies any headache, neck pain, abdominal pain, dizziness, nausea, vomiting, flank pain, fever, chills cough hematuria, dysuria, rectal bleeding. patient denies hitting head or any other body parts. patient has no physical complaints and and whole body exam negative for signs of trauma. So imaging was ordered. 4:30pm; patient admitted for syncope and acute JANEE. Case accepted by hospitatlist. Xrays negative for fluid overload. Differential Diagnosis Differential Diagnoses: The differential diagnosis associated with the presentation includes (Myocardial infarction, heart failure, JANEE) Admission/Observation Consideration of admission/observation: Escalation of care including admission/observation considered Consult Healthcare Provider Management of the patient was discussed with: Judicial Reporter (Dr. anderson Hospitalist) Lab Data MDM Lab Attestation statement: I reviewed the patient's lab results. 03/15/23 10:00 03/15/23 10:00 Labs: Lab Results 03/15/23 03/15/23 03/15/23 Range/Units 10:00 10:00 10:00 WBC 8.8 (4.8-10.8) X10*3/uL RBC 4.60 D (4.60-5.80) X10*6/uL Hgb 13.6 L D (14.0-18.0) g/dl Hct 41.6 L D (42.0-52.0) % MCV 90.4 (80.0-98.0) fL MCH 29.6 (27.0-33.0) pg MCHC 32.7 (31.0-36.0) g/dl RDW 14.5 (11.0-16.0) % Plt Count 122 L (160-400) X10*3/uL MPV 9.1 L (9.4-12.4) fL Immature Gran % (Auto) 0.5 H (0.0-0.4) % Neut % (Auto) 82.7 H (45-73) % Lymph % (Auto) 6.6 L (20-40) % Thayer % (Auto) 9.6 (2-11) % Eos % (Auto) 0.3 (0-4) % Baso % (Auto) 0.3 (0-2) % Lymph # (Auto) 0.6 L (1.2-4.9) X10*3/uL Thayer # (Auto) 0.9 (0.1-1.2) X10*3/uL Eos # (Auto) 0.0 (0.0-0.4) X10*3/uL Baso # (Auto) 0.0 (0.0-0.2) X10*3/uL Abs Immat Gran (auto) 0.04 H (0.00-0.03) X10*3/uL Absolute Neuts (auto) 7.3 (2.0-8.3) x10*3/uL Absolute Nucleated RBC 0.000 (0.0-0.012) X10*3/uL Nucleated RBC % (auto) 0.0 (0.0-0.2) /100WBC PT 12.5 (10.0-13.1) SEC INR 1.1 (0.9-1.1) APTT 35.3 (26.0-36.4) SEC D-Dimer High Sensitivty 584 NG/ML Sodium 135 (135-145) mmol/L Potassium 4.5 D (3.3-5.1) mmol/L Chloride 104 (96-108) mmol/L Carbon Dioxide 24 (22-29) mmol/L Anion Gap 12 (12-20) BUN 23 H (9-16) mg/dL Creatinine 1.71 H (0.5-1.4) mg/dL Estim Creat Clear Calc 38.1 Estimated GFR 40 Random Glucose 193 H (60-115) mg/dL Calcium 8.7 D (8.4-10.2) mg/dL Magnesium 1.7 (1.6-2.6) mg/dL Total Bilirubin 0.5 (0.0-1.0) mg/dL AST 12 (5-37) U/L ALT 11 (0-40) U/L Alkaline Phosphatase 114 (39-117) U/L Total Creatine Kinase 48 (38-174) U/L Troponin I High Sens (<3.5-35.0) ng/L B-Natriuretic Peptide (<100) pg/mL Total Protein 6.2 L (6.5-8.0) g/dL Albumin 3.1 L (3.5-5.0) g/dL Urine Color Urine Appearance Urine pH (5.0-9.0) Ur Specific [place] (1.005-1.025) Urine Protein (Neg-Trace) mg/dL Urine Glucose (UA) (Negative) mg/dL Urine Ketones (Negative) mg/dL Urine Blood (Negative) Urine Nitrite (Negative) Ur Leukocyte Esterase (Negative) Urine RBC (0-2) /HPF Urine WBC (0-5) /HPF Ur Squamous Epith Cells (0-2) /HPF Urine Bacteria (None Seen) Hyaline Casts (0-2) /LPF Granular Casts COVID-19 (REYNALDO) (Negative) COVID-19 Clin Com 03/15/23 03/15/23 03/15/23 Range/Units 10:00 10:00 13:08 WBC (4.8-10.8) X10*3/uL RBC (4.60-5.80) X10*6/uL Hgb (14.0-18.0) g/dl Hct (42.0-52.0) % MCV (80.0-98.0) fL MCH (27.0-33.0) pg MCHC (31.0-36.0) g/dl RDW (11.0-16.0) % Plt Count (160-400) X10*3/uL MPV (9.4-12.4) fL Immature Gran % (Auto) (0.0-0.4) % Neut % (Auto) (45-73) % Lymph % (Auto) (20-40) % Thayer % (Auto) (2-11) % Eos % (Auto) (0-4) % Baso % (Auto) (0-2) % Lymph # (Auto) (1.2-4.9) X10*3/uL Thayer # (Auto) (0.1-1.2) X10*3/uL Eos # (Auto) (0.0-0.4) X10*3/uL Baso # (Auto) (0.0-0.2) X10*3/uL Abs Immat Gran (auto) (0.00-0.03) X10*3/uL Absolute Neuts (auto) (2.0-8.3) x10*3/uL Absolute Nucleated RBC (0.0-0.012) X10*3/uL Nucleated RBC % (auto) (0.0-0.2) /100WBC PT (10.0-13.1) SEC INR (0.9-1.1) APTT (26.0-36.4) SEC D-Dimer High Sensitivty NG/ML Sodium (135-145) mmol/L Potassium (3.3-5.1) mmol/L Chloride (96-108) mmol/L Carbon Dioxide (22-29) mmol/L Anion Gap (12-20) BUN (9-16) mg/dL Creatinine (0.5-1.4) mg/dL Estim Creat Clear Calc Estimated GFR Random Glucose (60-115) mg/dL Calcium (8.4-10.2) mg/dL Magnesium (1.6-2.6) mg/dL Total Bilirubin (0.0-1.0) mg/dL AST (5-37) U/L ALT (0-40) U/L Alkaline Phosphatase (39-117) U/L Total Creatine Kinase (38-174) U/L Troponin I High Sens 258.8 H* 344.5 H* (<3.5-35.0) ng/L B-Natriuretic Peptide 770 H (<100) pg/mL Total Protein (6.5-8.0) g/dL Albumin (3.5-5.0) g/dL Urine Color Urine Appearance Urine pH (5.0-9.0) Ur Specific [place] (1.005-1.025) Urine Protein (Neg-Trace) mg/dL Urine Glucose (UA) (Negative) mg/dL Urine Ketones (Negative) mg/dL Urine Blood (Negative) Urine Nitrite (Negative) Ur Leukocyte Esterase (Negative) Urine RBC (0-2) /HPF Urine WBC (0-5) /HPF Ur Squamous Epith Cells (0-2) /HPF Urine Bacteria (None Seen) Hyaline Casts (0-2) /LPF Granular Casts COVID-19 (REYNALDO) (Negative) COVID-19 Clin Com 03/15/23 03/15/23 03/15/23 Range/Units 13:08 13:58 15:47 WBC (4.8-10.8) X10*3/uL RBC (4.60-5.80) X10*6/uL Hgb (14.0-18.0) g/dl Hct (42.0-52.0) % MCV (80.0-98.0) fL MCH (27.0-33.0) pg MCHC (31.0-36.0) g/dl RDW (11.0-16.0) % Plt Count (160-400) X10*3/uL MPV (9.4-12.4) fL Immature Gran % (Auto) (0.0-0.4) % Neut % (Auto) (45-73) % Lymph % (Auto) (20-40) % Thayer % (Auto) (2-11) % Eos % (Auto) (0-4) % Baso % (Auto) (0-2) % Lymph # (Auto) (1.2-4.9) X10*3/uL Thayer # (Auto) (0.1-1.2) X10*3/uL Eos # (Auto) (0.0-0.4) X10*3/uL Baso # (Auto) (0.0-0.2) X10*3/uL Abs Immat Gran (auto) (0.00-0.03) X10*3/uL Absolute Neuts (auto) (2.0-8.3) x10*3/uL Absolute Nucleated RBC (0.0-0.012) X10*3/uL Nucleated RBC % (auto) (0.0-0.2) /100WBC PT (10.0-13.1) SEC INR (0.9-1.1) APTT (26.0-36.4) SEC D-Dimer High Sensitivty NG/ML Sodium 135 (135-145) mmol/L Potassium 4.5 (3.3-5.1) mmol/L Chloride 107 (96-108) mmol/L Carbon Dioxide 19 L (22-29) mmol/L Anion Gap 14 (12-20) BUN 22 H (9-16) mg/dL Creatinine 1.47 H (0.5-1.4) mg/dL Estim Creat Clear Calc 44.3 Estimated GFR 47 Random Glucose 136 H (60-115) mg/dL Calcium 8.2 L (8.4-10.2) mg/dL Magnesium (1.6-2.6) mg/dL Total Bilirubin 0.4 (0.0-1.0) mg/dL AST 14 (5-37) U/L ALT 11 (0-40) U/L Alkaline Phosphatase 107 (39-117) U/L Total Creatine Kinase (38-174) U/L Troponin I High Sens (<3.5-35.0) ng/L B-Natriuretic Peptide (<100) pg/mL Total Protein 6.0 L (6.5-8.0) g/dL Albumin 2.9 L (3.5-5.0) g/dL Urine Color Yellow Urine Appearance Clear Urine pH 6.0 (5.0-9.0) Ur Specific [place] >= 1.030 H (1.005-1.025) Urine Protein 100 (2+) H (Neg-Trace) mg/dL Urine Glucose (UA) 100 H (Negative) mg/dL Urine Ketones Negative (Negative) mg/dL Urine Blood Negative (Negative) Urine Nitrite Negative (Negative) Ur Leukocyte Esterase Negative (Negative) Urine RBC 0-2 (0-2) /HPF Urine WBC 0-5 (0-5) /HPF Ur Squamous Epith Cells 0-2 (0-2) /HPF Urine Bacteria None Seen (None Seen) Hyaline Casts 3-5 (0-2) /LPF Granular Casts Present COVID-19 (REYNALDO) Negative (Negative) COVID-19 Clin Com See Note Independent Interpretation I performed an independent interpretation of an: EKG (NOrmal Sinus Rhythm. Bifasicular block. VEnt rate 77, HR 158, QRS 146, and Qtc 500) and Plain X-Ray Radiology Impression Discussion of test interpretation with radiology: I have reviewed the radiologist's reading. Discharge Plan Discharge Clinical Impression: Elevated troponin level, Syncope, JANEE (acute kidney injury) Patient Disposition: Admitted As Inpatient Interventions: Admission Worksheet (ED) Last Done: 03/15/23 19:08 Discharge Date/Time: 03/16/23 00:01
[2023-03-15 11:23] LABS: Magnesium 1.7 mg/dL (1.6-2.6)
[2023-03-15] MEDS: 0.9 % Sodium Chloride 1,000 ML 999 ML IV (11:39)
--- NOTE | 2023-03-15 11:41 | PC.NURSE ---
Fluids started as order. Pt denies pain. 99% on 2lpm, 02 turned off to see how pt tolerates. NSR on tele
[2023-03-15 11:45] LABS: B Type Natriuretic Peptide 770 pg/mL (<100)
[2023-03-15 13:35] LABS: Anion Gap 14 (12-20)
[2023-03-15 13:40] LABS: Alanine Aminotransferase 11 U/L (0-40); Albumin Level 2.9 g/dL (3.5-5.0); Alkaline Phosphatase 107 U/L (39-117); Aspartate Amino Transferase 14 U/L (5-37); Bilirubin Total 0.4 mg/dL (0.0-1.0); Blood Urea Nitrogen 22 mg/dL (9-16); Calcium 8.2 mg/dL (8.4-10.2); Carbon Dioxide 19 mmol/L (22-29); Chloride 107 mmol/L (96-108); Creatinine Clr Calc Pharmacy 44.3; Estimated Glomerular Filt Rate 47; Glucose Random 136 mg/dL (60-115); Potassium 4.5 mmol/L (3.3-5.1); Sodium 135 mmol/L (135-145)
[2023-03-15 13:53] LABS: Troponin-I High Sensitivity 344.5 ng/L (<3.5-35.0)
[2023-03-15 14:07] LABS: Appearance Urine Clear; Color Urine Yellow; Glucose Urine UA 100 mg/dL (Negative); Leukocyte Esterase Urine Negative (Negative); Nitrite Urine Negative (Negative); Specific Gravity - Urine >= 1.030 (1.005-1.025); UMIC TRIGGER UACC YES; Urine Blood Negative (Negative); Urine Ketones Negative (Negative); Urine Protein 100 (2+) mg/dL (Neg-Trace)
[2023-03-15 14:19] LABS: Bacteria Urine None Seen (None Seen); Granular Casts Urine Present; RBC Urine 0-2 /HPF (0-2); Squamous Epithelial Cell Urine 0-2 /HPF (0-2); WBC Urine 0-5 /HPF (0-5)
[2023-03-15 15:38] LABS: D Dimer High Sensitivity 584 NG/ML
--- NOTE | 2023-03-15 15:38 | PHA.MEDREC ---
Pharmacy Consult ? Medication Reconciliation Pharmacy has completed the medication reconciliation. SPOKE TO WIFEE
--- NOTE | 2023-03-15 15:55 | PC.NURSE ---
pt axox4, at bedside, vss, nsr on monitor 73 bpm, sats 93-95% RA, skin wpd. both aware of plan of admission; deny having questions at this time. call henson within reach.
--- NOTE | 2023-03-15 16:24 | PM.IMHP ---
History of Present Illness Date of Service: 03/15/23 Attending physician on admission: Lonnie Alvarez Chief Complaint: fall 67 year old male with history CVA, CAD, CHF, T2DM, HTN, COPD, CKD stage 3, unspecified CHF, GERD, PAD, and anxiety/depression presented to the ED for evaluation of a fall this morning. The patient reports he was walking to his chair with his walker and when he turned to sit felt very lightheaded and fell to his knees. No LOC or headstrike. His was unable to assist him to his feet and called EMS. When EMS arrived, per the the patient was noted to be unresponsive for a perior of about 2 minutes, awake but staring into space. No tonic clonic movements. No post ictal state reported. Denies history of seizures. Upon further questioning the patient has also been feeling generally unwell since yesterday with a productive cough. has similar symptoms. No fevers, chills, sinus pain, sore throat, abd pain, nausea, vomiting, diarrhea, dysuria, wheezing, palpitations, chest pain. He does endorse dyspnea on exertion, but states this is intermittent and long standing. No orthopnea, PND, BLE. He is also incontinent of urine at baseline. On arrival, patient afebrile, tachypneic to 26. Vitals otherwise stable, no hypoxia. No leukocytosis. Creat 1.71 on arrival, baseline around 1.30, BUN 22. Creat improved to 1.47 with IVF. Electrolytes normal. Initial trop 258.8, repeat 344.5. BNP 770. UA with 2+ protein, and elevated specific gravity. EKG shows NSR, rate 73, RBBB, no st/t wave abnormality. CXR negative for acute disease in chest. In the ED, given 1 L IV NS. Review of Systems Review of Systems: General: No fevers, malaise, unintentional weight loss HEENT: No blurred vision, diplopia. No sore throat, nasal congestion, rhinorrhea, sinus pain, ear pain Cardiovascular: No chest pain, palpitations, or leg edema Respiratory: +cough, CRAWLEY. No orthopnea, PND, wheezing GI: No abdominal pain, nausea, vomiting, diarrhea, constipation, melena, hematochezia : +urinary incontinence. No dysuria, hematuria, increased urinary frequency, decreased urinary output MSK: No myalgia, back pain Neuro: No headaches, weakness, paresthesias. +unresponsiveness, +fall Skin: No rashes or lesions [facility] Medical History Abnormal EKG Blood bacterial culture positive CAD (coronary artery disease) CHF (congestive heart failure) CKD (chronic kidney disease), stage III COPD (chronic obstructive pulmonary disease) COVID-19 COVID-19 CVA (cerebral vascular accident) Diabetes Dizziness Hypertension NSTEMI (non-ST elevated myocardial infarction) Type 2 diabetes mellitus Surgical History History of percutaneous coronary intervention Social History Household Members: Spouse Housing: Apartment Do you presently have visiting nurse or other home services: No Alcohol intake: never Patient Tobacco Use Status: Never used Tobacco Smoked in Last 30 Days: No e-Cigarette/Vaping Use: Never Used Second Hand Smoke Exposure: No Use of substances other than those prescribed or required for medical reasons: No Advance Directives: Yes Advance Directives on File: Yes Advance Directives Date on File: 05/31/20 service: No Current occupational status: retired Meds Allergies Allergy/AdvReac Type Severity Reaction Status Date / Time No Known Allergies Allergy Unknown NKA Verified 07/05/20 17:17 Active Medications: Current Medications Pharmacy Consult (Consult Rx Perform Med Rec) 1 each MISCELLANE ONCE PRN PRN Reason: Consult order Home Medications Medication Instructions Recorded Confirmed Last Taken Type hydralazine 25 mg tablet 25 mg PO BID 06/06/20 03/15/23 03/14/23 History lovastatin 20 mg tablet 20 mg PO BEDTIME 06/06/20 03/15/23 03/14/23 History venlafaxine 150 mg 150 mg PO DAILY 06/06/20 03/15/23 03/14/23 History capsule,extended release 24 hr venlafaxine 75 mg capsule,extended 75 mg PO DAILY 06/06/20 03/15/23 03/14/23 History release 24 hr aspirin 81 mg tablet,delayed 1 tab PO DAILY 05/18/22 03/15/23 03/14/23 History release glipizide 5 mg tablet 1 tab PO BID 05/18/22 03/15/23 03/14/23 History lorazepam 0.5 mg tablet 1 tab PO BID PRN anxiety 05/18/22 03/15/23 05/17/22 History olanzapine 20 mg tablet 1 tab PO BEDTIME 05/18/22 03/15/23 03/14/23 History Physical Exam Vital Signs and Narrative: Vital Signs: Last Vital Signs Temp 99.1 F 03/15/23 08:42 Pulse 72 03/15/23 16:00 Resp 17 03/15/23 16:00 BP 157/80 H 03/15/23 16:00 Pulse Ox 94 03/15/23 16:00 O2 Del Method Room Air 03/15/23 16:00 O2 Flow Rate 2 03/15/23 11:41 Oxygen Flow Rate 2 03/15/23 08:46 BMI result Body Mass Index 24.0 Constitutional - Awake and Alert, No apparent distress Eyes - PERRLA, EOMI Cardiovascular - S1S2, RRR, No edema Respiratory - Normal lung expansion, Normal respiratory effort, No respiratory distress, some expiratory wheezing RUFINO, ortherwise CTA Gastrointestinal - NT / ND; +BS; No rebound or guarding Extremities - no calf tenderness bilaterally, no swelling Skin - Warm/Dry Neurological - Alert & oriented x3, CN II-XII in tact, 3/5 strength BUE and BLE Results Labs 03/15/23 10:00 03/15/23 13:08 Labs: Laboratory Results - last 24 hr 03/15/23 03/15/23 03/15/23 10:00 10:00 10:00 MCV 90.4 MCH 29.6 MCHC 32.7 RDW 14.5 Plt Count 122 L MPV 9.1 L Immature Gran % (Auto) 0.5 H Neut % (Auto) 82.7 H Lymph % (Auto) 6.6 L [place] % (Auto) 9.6 Eos % (Auto) 0.3 Baso % (Auto) 0.3 Lymph # (Auto) 0.6 L [place] # (Auto) 0.9 Eos # (Auto) 0.0 Baso # (Auto) 0.0 Abs Immat Gran (auto) 0.04 H Absolute Neuts (auto) 7.3 Absolute Nucleated RBC 0.000 Nucleated RBC % (auto) 0.0 PT 12.5 INR 1.1 APTT 35.3 D-Dimer High Sensitivty 584 Anion Gap 12 Estim Creat Clear Calc 38.1 Estimated GFR 40 Random Glucose 193 H Calcium 8.7 D Magnesium 1.7 Total Bilirubin 0.5 AST 12 ALT 11 Alkaline Phosphatase 114 Total Creatine Kinase 48 Troponin I High Sens B-Natriuretic Peptide Total Protein 6.2 L Albumin 3.1 L Urine Color Urine Appearance Urine pH Ur Specific [place] Urine Protein Urine Glucose (UA) Urine Ketones Urine Blood Urine Nitrite Ur Leukocyte Esterase Urine RBC Urine WBC Ur Squamous Epith Cells Urine Bacteria Hyaline Casts Granular Casts 03/15/23 03/15/23 03/15/23 10:00 10:00 13:08 MCV MCH MCHC RDW Plt Count MPV Immature Gran % (Auto) Neut % (Auto) Lymph % (Auto) [place] % (Auto) Eos % (Auto) Baso % (Auto) Lymph # (Auto) [place] # (Auto) Eos # (Auto) Baso # (Auto) Abs Immat Gran (auto) Absolute Neuts (auto) Absolute Nucleated RBC Nucleated RBC % (auto) PT INR APTT D-Dimer High Sensitivty Anion Gap Estim Creat Clear Calc Estimated GFR Random Glucose Calcium Magnesium Total Bilirubin AST ALT Alkaline Phosphatase Total Creatine Kinase Troponin I High Sens 258.8 H* 344.5 H* B-Natriuretic Peptide 770 H Total Protein Albumin Urine Color Urine Appearance Urine pH Ur Specific [place] Urine Protein Urine Glucose (UA) Urine Ketones Urine Blood Urine Nitrite Ur Leukocyte Esterase Urine RBC Urine WBC Ur Squamous Epith Cells Urine Bacteria Hyaline Casts Granular Casts 03/15/23 03/15/23 13:08 13:58 MCV MCH MCHC RDW Plt Count MPV Immature Gran % (Auto) Neut % (Auto) Lymph % (Auto) [place] % (Auto) Eos % (Auto) Baso % (Auto) Lymph # (Auto) [place] # (Auto) Eos # (Auto) Baso # (Auto) Abs Immat Gran (auto) Absolute Neuts (auto) Absolute Nucleated RBC Nucleated RBC % (auto) PT INR APTT D-Dimer High Sensitivty Anion Gap 14 Estim Creat Clear Calc 44.3 Estimated GFR 47 Random Glucose 136 H Calcium 8.2 L Magnesium Total Bilirubin 0.4 AST 14 ALT 11 Alkaline Phosphatase 107 Total Creatine Kinase Troponin I High Sens B-Natriuretic Peptide Total Protein 6.0 L Albumin 2.9 L Urine Color Yellow Urine Appearance Clear Urine pH 6.0 Ur Specific [place] >= 1.030 H Urine Protein 100 (2+) H Urine Glucose (UA) 100 H Urine Ketones Negative Urine Blood Negative Urine Nitrite Negative Ur Leukocyte Esterase Negative Urine RBC 0-2 Urine WBC 0-5 Ur Squamous Epith Cells 0-2 Urine Bacteria None Seen Hyaline Casts 3-5 Granular Casts Present Imaging Radiologist's Impressions: Impressions Chest X-Ray 03/15/23 13:31 IMPRESSION: No evidence for acute disease in the chest. Assessment and Plan (1) URI (upper respiratory infection): Status: Acute (2) Acute and chronic respiratory failure with hypoxia: Status: Acute (3) Elevated troponin: Status: Acute Plan 67 year old male with history CVA, CAD, CHF, T2DM, HTN, COPD, CKD stage 3, unspecified CHF, GERD, PAD, and anxiety/depression admitted for possible seizure with acute URI with elevated trops and JANEE. #?Absence seizure -Head CT negative for acute abnormality but shows gliosis right and left vertex frontal parietal lobes from old infarct -EEG -Neuro consult -seizure precautions #Acute hypoxemic respiratory failure- resolved -Hypoxic to 80's per nursing on arrival -?r/t seizure vs URI -DDimer elevated, CTA chest negative #URI -Viral respiratory panel pending -symptomatic management -CXR/CTA chest negative for pneumonia #Elevated trops -Initial 258.8 a repeat 344.5 -EKG without acute ischemic changes -CTA chest negative for PE -?viral myocarditis -Echo cardiology consult #Acute kidney injury- likely prerenal -Baseline CKD stage 3 -Creat 1.71, baseline around 0.79. Improved to 1.47 with 1L IV NS -Avoid nephrotoxins -Follow BMP #Chronic CHF, unspecified -Clinically no acute exacerbation -CXR/CTA chest negative for fluid overload -BNP 700, baseline unknown -Echo as above #COPD -no acute exacerbation -albuterol prn #General weakness -PT eval #HTN -continue home meds # mkj-[id number] type 2 diabetes -POC glucose -diabetic diet -Humalog on sliding scale # mood disorder -continue home meds # CAD/HLD -no ischemic changes on EKG, no anginal chest pain -continue ASA, beta-adriana, statin -as above DVT prophylaxis- full code Full code Pt requires inpt stay at least 2 midnights for management of acute kidney injury and possible viral myocarditis. Time Spent With Patient Time: Total time managing care of this patient today ____ minutes. Quality Stroke Does the patient have a stroke diagnosis?: No VTE Prior VTE?: No VTE Risk Level:: Medical - moderate - high VTE Device Contraindication: Treatment Not Indicated VTE Drug Contraindication: N/A - Med Ordered
[2023-03-15] MEDS: iohexoL 350 MG/ML 100 ML INFUS..BTL IV (16:38)
--- NOTE | 2023-03-15 16:44 | MHC.EDTECH ---
Patient changed over and repositioned
--- NOTE | 2023-03-15 17:03 | MHC.EDTECH ---
Patient belonging list done
[2023-03-15 17:42] LABS: COVID-19 Test Negative (Negative); IDNOW Serial# 6674DD1D
--- NOTE | 2023-03-15 18:38 | PC.NURSE ---
attempt to call report to c rn.
--- NOTE | 2023-03-15 18:39 | PC.NURSE ---
at bedside; pt served dinner; nsr on monitor 76 bpm, sats remain 93-95% RA.
--- NOTE | 2023-03-15 18:42 | PC.NURSE ---
report given to [facility] ryan varghese.
[2023-03-15] MEDS: OLANZapine 10 MG TABLET 20 MG PO (20:06)
[2023-03-15] MEDS: Pravastatin Sodium 20 MG TABLET PO (20:06)
[2023-03-15] MEDS: Enoxaparin Sodium 40 MG/0.4 ML SYRINGE SUBCUT (20:06)
[2023-03-15] MEDS: 0.9 % Sodium Chloride Flush 3 ML SYRINGE IVFLUSH (20:06)
[2023-03-15] MEDS: hydrALAZINE HCl 25 MG TABLET PO (20:06)
[2023-03-15 20:28] LABS: Glucose, Whole Blood 187 mg/dL (60-115)
[2023-03-15] MEDS: Insulin Lispro 100 UNIT/ML 3 ML VIAL SUBCUT (20:33)
--- NOTE | 2023-03-15 21:17 | PC.NURSE ---
Pt admitted from ED. A&Ox3, generalized weakness throughout. Denies pain or discomfort. No s/sx SOB/Dyspnea. On arrival O2 sats 89% on room air. Per MD Pimentel with hx of COPD pt okay to have sats 88-92%. Denies chest pain or discomfort. No nausea/vomiting. at bedside for admission. NSR with BBB on foster care social worker. Cell henson within reach, VMT in place, bed in lowest locked position.
[2023-03-16] VITALS (7 sets, daily range): BP systolic 116–155; BP diastolic 69–83; PULSE 67–79; RESP 16–20; TEMP 36–36.6; O2SAT 90–97
[2023-03-16 05:52] LABS: MANUAL DIFF FLAG NO
[2023-03-16 06:01] LABS: Basophils Percent Auto 0.6 % (0-2); Eosinophils Absolute Auto 0.2 X10*3/uL (0.0-0.4); Eosinophils Percent Auto 2.6 % (0-4); Hematocrit 41.3 % (42.0-52.0); Hemoglobin 13.5 g/dl (14.0-18.0); Imm Gran Abs Auto 0.03 X10*3/uL (0.00-0.03); Imm Gran Pct Auto 0.4 % (0.0-0.4); Lymphocytes Absolute Auto 1.4 X10*3/uL (1.2-4.9); Lymphocytes Percent Auto 20.4 % (20-40); Mean Corpuscular HGB Conc 32.7 g/dl (31.0-36.0); Mean Corpuscular Hemoglobin 29.5 pg (27.0-33.0); Mean Corpuscular Volume 90.2 fL (80.0-98.0); Mean Platelet Volume 8.9 fL (9.4-12.4); Monocytes Absolute Auto 1.3 X10*3/uL (0.1-1.2); Monocytes Percent Auto 18.7 % (2-11); Neutrophils Percent Auto 57.3 % (45-73); Platelet Count 123 X10*3/uL (160-400); Red Blood Count 4.58 X10*6/uL (4.60-5.80); Red Cell Distribution Width 14.4 % (11.0-16.0)
[2023-03-16 06:23] LABS: Anion Gap 13 (12-20); Blood Urea Nitrogen 22 mg/dL (9-16); Calcium 8.5 mg/dL (8.4-10.2); Carbon Dioxide 24 mmol/L (22-29); Chloride 108 mmol/L (96-108); Creatinine Clr Calc Pharmacy 50.9; Estimated Glomerular Filt Rate 56; Glucose Random 109 mg/dL (60-115); Potassium 4.1 mmol/L (3.3-5.1); Sodium 141 mmol/L (135-145)
[2023-03-16 07:44] LABS: Glucose, Whole Blood 123 mg/dL (60-115)
[2023-03-16] MEDS: hydrALAZINE HCl 25 MG TABLET PO ×2 (08:21→20:17)
[2023-03-16] MEDS: Venlafaxine HCl ER 75 MG CAP.ER.24H PO (08:21)
[2023-03-16] MEDS: Venlafaxine HCl ER 150 MG CAP.ER.24H PO (08:21)
[2023-03-16] MEDS: Aspirin Enteric Coated 81 MG TABLET.DR PO (08:21)
[2023-03-16] MEDS: atenoloL 50 MG TABLET PO (08:21)
[2023-03-16] MEDS: 0.9 % Sodium Chloride Flush 3 ML SYRINGE IVFLUSH ×3 (08:22→20:17)
[2023-03-16 09:25] LABS: Adenovirus PCR Not Detected (Not Detect.); Bordetella parapertussis PCR Not Detected (Not Detect.); Bordetella pertussis PCR Not Detected (Not Detect.); Chlamydia pneumoniae PCR Not Detected (Not Detect.); Coronavirus 229E PCR Not Detected (Not Detect.); Coronavirus HKU1 PCR Not Detected (Not Detect.); Coronavirus NL63 PCR Not Detected (Not Detect.); Coronavirus OC43 PCR Not Detected (Not Detect.); Human metapneumovirus PCR Not Detected (Not Detect.); Influenza A PCR Not Detected (Not Detect.); Influenza B PCR Not Detected (Not Detect.); Mycoplasma pneumoniae PCR Not Detected (Not Detect.); Parainfluenza 1 PCR Not Detected (Not Detect.); Parainfluenza 2 PCR Not Detected (Not Detect.); Parainfluenza 3 PCR Not Detected (Not Detect.); Parainfluenza 4 PCR Not Detected (Not Detect.); RSV PCR Not Detected (Not Detect.); Rhino/Enterovirus PCR Detected (Not Detect.); SARS-CoV-2 PCR Not Detected (Not Detect.)
--- NOTE | 2023-03-16 10:08 | P.PNIM_ITS ---
Subjective Subjective Date of Service: 03/16/23 Interval History: f/u on seizure, hypoxia, Physical Exam Vital Signs: Vital Signs: Last Vital Signs Temp 97.8 F 03/16/23 07:08 Pulse 76 03/16/23 07:08 Resp 18 03/16/23 07:08 BP 150/73 H 03/16/23 07:08 Pulse Ox 91 L 03/16/23 07:08 O2 Del Method Room Air 03/16/23 07:08 O2 Flow Rate 2 03/15/23 11:41 Oxygen Flow Rate 2 03/15/23 08:46 BMI result Body Mass Index 23.5 Objective Data Active Medications Acetaminophen (Acetaminophen 325 Mg Tablet) 650 mg PO Q6H PRN PRN Reason: Pain, Mild (Pain Scale 1-3) Albuterol Sulfate (Albuterol Sulfate (0.083%) 2.5 Mg/3 Ml Vial.Neb) 2.5 mg INHALE Q4H PRN PRN Reason: sob/wheezing Aspirin (Aspirin Enteric Coated 81 Mg Tablet.) 81 mg PO DAILY [facility] Last Admin: 03/16/23 08:21 Dose: 81 mg Documented By: DUSTY Atenolol (Atenolol 50 Mg Tablet) 50 mg PO DAILY [facility]; Protocol Last Admin: 03/16/23 08:21 Dose: 50 mg Documented By: DUSTY Dextrose (Dextrose 50 % 25 Gm/50 Ml Syringe) 25 gm IVPUSH Q15M PRN; Protocol PRN Reason: per Hypoglycemia Standing Ord. Docusate Sodium (Docusate Sodium 100 Mg Capsule) 100 mg PO DAILY PRN PRN Reason: Constipation Enoxaparin Sodium (Enoxaparin Sodium 40 Mg/0.4 Ml Syringe) 40 mg SUBCUT Q24H [facility] Last Admin: 03/15/23 20:06 Dose: 40 mg Documented By: CAMI Glucose (Glucose Gel 15 Gm Gel..Gram.) 15 gm PO Q15M PRN; Protocol PRN Reason: per Hypoglycemia Standing Ord. Guaifenesin (Guaifenesin 200 Mg/10 Ml 10 Ml Liquid) 10 ml PO Q6H PRN PRN Reason: Cough Hydralazine HCl (Hydralazine Hcl 25 Mg Tablet) 25 mg PO BID [facility]; Protocol Last Admin: 03/16/23 08:21 Dose: 25 mg Documented By: DUSTY Insulin Human Lispro (Insulin Lispro 100 Unit/Ml 3 Ml Vial) 0 unit SUBCUT QIDACHS [facility]; Protocol Last Admin: 03/16/23 08:06 Dose: Not Given Documented By: DUSTY Non-Admin Reason: No Insulin Coverage Comments: per policy Lorazepam (Lorazepam 0.5 Mg Tablet) 0.5 mg PO BID PRN PRN Reason: anxiety Olanzapine (Olanzapine 10 Mg Tablet) 20 mg PO BEDTIME [facility] Last Admin: 03/15/23 20:06 Dose: 20 mg Documented By: CAMI Ondansetron HCl (Ondansetron Hcl 4 Mg/2 Ml Vial) 4 mg IVPUSH Q8H PRN PRN Reason: Nausea and Vomiting Pharmacy Consult (Consult Rx Perform Med Rec) 1 each MISCELLANE ONCE PRN PRN Reason: Consult order Pravastatin Sodium (Pravastatin Sodium 20 Mg Tablet) 20 mg PO BEDTIME [facility] Last Admin: 03/15/23 20:06 Dose: 20 mg Documented By: CAMI Sodium Chloride (0.9 % Sodium Chloride Flush 3 Ml Syringe) 3 ml IVFLUSH QSHIFT [facility] Last Admin: 03/16/23 08:22 Dose: 3 ml Documented By: DUSTY Venlafaxine HCl (Venlafaxine Hcl Er 75 Mg Cap.Er.24h) 75 mg PO DAILY [facility] Last Admin: 03/16/23 08:21 Dose: 75 mg Documented By: DUSTY Venlafaxine HCl (Venlafaxine Hcl Er 150 Mg Cap.Er.24h) 150 mg PO DAILY [facility] Last Admin: 03/16/23 08:21 Dose: 150 mg Documented By: DUSTY Labs 03/16/23 05:28 03/16/23 05:28 Labs: Laboratory Results - last 24 hr 03/15/23 03/15/23 03/15/23 10:00 10:00 10:00 MCV 90.4 MCH 29.6 MCHC 32.7 RDW 14.5 Plt Count 122 L MPV 9.1 L Immature Gran % (Auto) 0.5 H Neut % (Auto) 82.7 H Lymph % (Auto) 6.6 L [place] % (Auto) 9.6 Eos % (Auto) 0.3 Baso % (Auto) 0.3 Lymph # (Auto) 0.6 L [place] # (Auto) 0.9 Eos # (Auto) 0.0 Baso # (Auto) 0.0 Abs Immat Gran (auto) 0.04 H Absolute Neuts (auto) 7.3 Absolute Nucleated RBC 0.000 Nucleated RBC % (auto) 0.0 PT 12.5 INR 1.1 APTT 35.3 D-Dimer High Sensitivty 584 Anion Gap 12 Estim Creat Clear Calc 38.1 Estimated GFR 40 POC Glucose Random Glucose 193 H Calcium 8.7 D Magnesium 1.7 Total Bilirubin 0.5 AST 12 ALT 11 Alkaline Phosphatase 114 Total Creatine Kinase 48 Troponin I High Sens B-Natriuretic Peptide Total Protein 6.2 L Albumin 3.1 L Urine Color Urine Appearance Urine pH Ur Specific [place] Urine Protein Urine Glucose (UA) Urine Ketones Urine Blood Urine Nitrite Ur Leukocyte Esterase Urine RBC Urine WBC Ur Squamous Epith Cells Urine Bacteria Hyaline Casts Granular Casts Respiratory Panel Moss Adenovirus (Rapid PCR) B.pert (TEM-PCR) B.parapertussis DNA PCR C. pneumoniae DNA (PCR) Coronavirus OC43 (PCR) Coronavirus HKU1 (PCR) Coronavirus 229E (PCR) COVID-19 ([facility]) COVID-19 Clin Com Coronavirus NL63 (PCR) Human Metapneumovir PCR Influenza A (RT-PCR) Influenza B (RT-PCR) M. pneumoniae (PCR) Parainfluenza 1 (PCR) Parainfluenza 2 (PCR) Parainfluenza 3 (PCR) Parainfluenza 4 (PCR) RSV (PCR) Entero/Rhino (PCR) SARS-CoV-2 RNA (RT-PCR) 03/15/23 03/15/23 03/15/23 10:00 10:00 13:08 MCV MCH MCHC RDW Plt Count MPV Immature Gran % (Auto) Neut % (Auto) Lymph % (Auto) [place] % (Auto) Eos % (Auto) Baso % (Auto) Lymph # (Auto) [place] # (Auto) Eos # (Auto) Baso # (Auto) Abs Immat Gran (auto) Absolute Neuts (auto) Absolute Nucleated RBC Nucleated RBC % (auto) PT INR APTT D-Dimer High Sensitivty Anion Gap Estim Creat Clear Calc Estimated GFR POC Glucose Random Glucose Calcium Magnesium Total Bilirubin AST ALT Alkaline Phosphatase Total Creatine Kinase Troponin I High Sens 258.8 H* 344.5 H* B-Natriuretic Peptide 770 H Total Protein Albumin Urine Color Urine Appearance Urine pH Ur Specific [place] Urine Protein Urine Glucose (UA) Urine Ketones Urine Blood Urine Nitrite Ur Leukocyte Esterase Urine RBC Urine WBC Ur Squamous Epith Cells Urine Bacteria Hyaline Casts Granular Casts Respiratory Panel [place] Adenovirus (Rapid PCR) B.pert (TEM-PCR) B.parapertussis DNA PCR C. pneumoniae DNA (PCR) Coronavirus OC43 (PCR) Coronavirus HKU1 (PCR) Coronavirus 229E (PCR) COVID-19 ([facility]) COVID-19 Clin Com Coronavirus NL63 (PCR) Human Metapneumovir PCR Influenza A (RT-PCR) Influenza B (RT-PCR) M. pneumoniae (PCR) Parainfluenza 1 (PCR) Parainfluenza 2 (PCR) Parainfluenza 3 (PCR) Parainfluenza 4 (PCR) RSV (PCR) Entero/Rhino (PCR) SARS-CoV-2 RNA (RT-PCR) 03/15/23 03/15/23 03/15/23 13:08 13:58 15:47 MCV MCH MCHC RDW Plt Count MPV Immature Gran % (Auto) Neut % (Auto) Lymph % (Auto) [place] % (Auto) Eos % (Auto) Baso % (Auto) Lymph # (Auto) [place] # (Auto) Eos # (Auto) Baso # (Auto) Abs Immat Gran (auto) Absolute Neuts (auto) Absolute Nucleated RBC Nucleated RBC % (auto) PT INR APTT D-Dimer High Sensitivty Anion Gap 14 Estim Creat Clear Calc 44.3 Estimated GFR 47 POC Glucose Random Glucose 136 H Calcium 8.2 L Magnesium Total Bilirubin 0.4 AST 14 ALT 11 Alkaline Phosphatase 107 Total Creatine Kinase Troponin I High Sens B-Natriuretic Peptide Total Protein 6.0 L Albumin 2.9 L Urine Color Yellow Urine Appearance Clear Urine pH 6.0 Ur Specific [place] >= 1.030 H Urine Protein 100 (2+) H Urine Glucose (UA) 100 H Urine Ketones Negative Urine Blood Negative Urine Nitrite Negative Ur Leukocyte Esterase Negative Urine RBC 0-2 Urine WBC 0-5 Ur Squamous Epith Cells 0-2 Urine Bacteria None Seen Hyaline Casts 3-5 Granular Casts Present Respiratory Panel [place] Adenovirus (Rapid PCR) B.pert (TEM-PCR) B.parapertussis DNA PCR C. pneumoniae DNA (PCR) Coronavirus OC43 (PCR) Coronavirus HKU1 (PCR) Coronavirus 229E (PCR) COVID-19 ([facility]) Negative COVID-19 Clin Com See Note Coronavirus NL63 (PCR) Human Metapneumovir PCR Influenza A (RT-PCR) Influenza B (RT-PCR) M. pneumoniae (PCR) Parainfluenza 1 (PCR) Parainfluenza 2 (PCR) Parainfluenza 3 (PCR) Parainfluenza 4 (PCR) RSV (PCR) Entero/Rhino (PCR) SARS-CoV-2 RNA (RT-PCR) 03/15/23 03/15/23 03/16/23 17:39 20:11 05:28 MCV 90.2 MCH 29.5 MCHC 32.7 RDW 14.4 Plt Count 123 L MPV 8.9 L Immature Gran % (Auto) 0.4 Neut % (Auto) 57.3 Lymph % (Auto) 20.4 [place] % (Auto) 18.7 H Eos % (Auto) 2.6 Baso % (Auto) 0.6 Lymph # (Auto) 1.4 [place] # (Auto) 1.3 H Eos # (Auto) 0.2 Baso # (Auto) 0.0 Abs Immat Gran (auto) 0.03 Absolute Neuts (auto) 4.0 Absolute Nucleated RBC 0.000 Nucleated RBC % (auto) 0.0 PT INR APTT D-Dimer High Sensitivty Anion Gap Estim Creat Clear Calc Estimated GFR POC Glucose 187 H Random Glucose Calcium Magnesium Total Bilirubin AST ALT Alkaline Phosphatase Total Creatine Kinase Troponin I High Sens B-Natriuretic Peptide Total Protein Albumin Urine Color Urine Appearance Urine pH Ur Specific [place] Urine Protein Urine Glucose (UA) Urine Ketones Urine Blood Urine Nitrite Ur Leukocyte Esterase Urine RBC Urine WBC Ur Squamous Epith Cells Urine Bacteria Hyaline Casts Granular Casts Respiratory Panel Moss See Note Adenovirus (Rapid PCR) Not Detected B.pert (TEM-PCR) Not Detected B.parapertussis DNA PCR Not Detected C. pneumoniae DNA (PCR) Not Detected Coronavirus OC43 (PCR) Not Detected Coronavirus HKU1 (PCR) Not Detected Coronavirus 229E (PCR) Not Detected COVID-19 ([facility]) COVID-19 Clin Com Coronavirus NL63 (PCR) Not Detected Human Metapneumovir PCR Not Detected Influenza A (RT-PCR) Not Detected Influenza B (RT-PCR) Not Detected M. pneumoniae (PCR) Not Detected Parainfluenza 1 (PCR) Not Detected Parainfluenza 2 (PCR) Not Detected Parainfluenza 3 (PCR) Not Detected Parainfluenza 4 (PCR) Not Detected RSV (PCR) Not Detected Entero/Rhino (PCR) Detected A SARS-CoV-2 RNA (RT-PCR) Not Detected 03/16/23 03/16/23 05:28 07:13 MCV MCH MCHC RDW Plt Count MPV Immature Gran % (Auto) Neut % (Auto) Lymph % (Auto) [place] % (Auto) Eos % (Auto) Baso % (Auto) Lymph # (Auto) [place] # (Auto) Eos # (Auto) Baso # (Auto) Abs Immat Gran (auto) Absolute Neuts (auto) Absolute Nucleated RBC Nucleated RBC % (auto) PT INR APTT D-Dimer High Sensitivty Anion Gap 13 Estim Creat Clear Calc 50.9 Estimated GFR 56 POC Glucose 123 H Random Glucose 109 Calcium 8.5 Magnesium Total Bilirubin AST ALT Alkaline Phosphatase Total Creatine Kinase Troponin I High Sens B-Natriuretic Peptide Total Protein Albumin Urine Color Urine Appearance Urine pH Ur Specific [place] Urine Protein Urine Glucose (UA) Urine Ketones Urine Blood Urine Nitrite Ur Leukocyte Esterase Urine RBC Urine WBC Ur Squamous Epith Cells Urine Bacteria Hyaline Casts Granular Casts Respiratory Panel [place] Adenovirus (Rapid PCR) B.pert (TEM-PCR) B.parapertussis DNA PCR C. pneumoniae DNA (PCR) Coronavirus OC43 (PCR) Coronavirus HKU1 (PCR) Coronavirus 229E (PCR) COVID-19 ([facility]) COVID-19 Clin Com Coronavirus NL63 (PCR) Human Metapneumovir PCR Influenza A (RT-PCR) Influenza B (RT-PCR) M. pneumoniae (PCR) Parainfluenza 1 (PCR) Parainfluenza 2 (PCR) Parainfluenza 3 (PCR) Parainfluenza 4 (PCR) RSV (PCR) Entero/Rhino (PCR) SARS-CoV-2 RNA (RT-PCR) Assessment and Plan (1) Elevated troponin: Status: Acute (2) Acute and chronic respiratory failure with hypoxia: Status: Acute Plan 67 year old male with history CVA, CAD, CHF, T2DM, HTN, COPD, CKD stage 3, unspecified CHF, GERD, PAD, and anxiety/depression admitted for possible seizure with acute URI with elevated trops and JANEE. #?Absence seizure -Head CT negative for acute abnormality but shows gliosis right and left vertex frontal parietal lobes from old infarct -EEG -Neuro consult -seizure precautions #Acute hypoxemic respiratory failure- resolved -Hypoxic to 80's per nursing on arrival -?r/t seizure vs URI -DDimer elevated, CTA chest negative #URI -Viral respiratory panel =rhinovirus -symptomatic management -CXR/CTA chest negative for pneumonia #Elevated trops, ? NSTEMI -Initial 258.8 a repeat 344.5 -EKG without acute ischemic changes -CTA chest negative for PE -?viral myocarditis -Echo, cardiology consult #Acute kidney injury- likely prerenal -Baseline CKD stage 3 -Creat 1.71, baseline around 0.79. Improved to 1.28 with 1L IV NS -Avoid nephrotoxins -Follow BMP #Chronic CHF, unspecified -Clinically no acute exacerbation -CXR/CTA chest negative for fluid overload -BNP 700, baseline unknown -Echo as above #COPD -no acute exacerbation -albuterol prn #General weakness -PT eval #HTN -continue home meds # [id number] type 2 diabetes -POC glucose -diabetic diet -Humalog on sliding scale # mood disorder -continue home meds # CAD/HLD -no ischemic changes on EKG, no anginal chest pain -continue ASA, beta-adriana, statin -as above DVT prophylaxis- full code Full code need for inpatient: NSTEMI, seizure management and workup Time Spent With Patient Time: Total time managing care of this patient today ____ minutes. Quality Stroke Does the patient have a stroke diagnosis?: No VTE Prior VTE?: No VTE Risk Level:: Medical - moderate - high VTE Device Contraindication: Treatment Not Indicated VTE Drug Contraindication: N/A - Med Ordered
--- NOTE | 2023-03-16 10:42 | P.CNNE_ITS ---
History of Present Illness Data of Consult Service Date: 03/16/23 Primary Care Provider: Kayy Pabon NP HPI Reason for consult: Syncope 67 years old man who seems to have moderate to severe multifactorial, de generative +vascular, dementia and associated cognitive and physical disability. He was using a walker and was ambulating at home when he lost balance and fell down. Apparently he were noted to be unresponsive for a minute or 2. No convulsion was noted. He remembered falling. Review of Systems Review of Systems: No recent cold or flu-like illness or incontinence PMFSH Past Medical History Medical History Abnormal EKG Blood bacterial culture positive CAD (coronary artery disease) CHF (congestive heart failure) CKD (chronic kidney disease), stage III COPD (chronic obstructive pulmonary disease) COVID-19 COVID-19 CVA (cerebral vascular accident) Diabetes Dizziness Hypertension NSTEMI (non-ST elevated myocardial infarction) Type 2 diabetes mellitus Surgical History Surgical History History of percutaneous coronary intervention Social History Social History Household Members: Spouse Housing: Apartment Do you presently have visiting nurse or other home services: No Alcohol intake: never Patient Tobacco Use Status: Never used Tobacco Smoked in Last 30 Days: No e-Cigarette/Vaping Use: Never Used Second Hand Smoke Exposure: No Use of substances other than those prescribed or required for medical reasons: No Currently Displaying Signs/Symptoms of Drug Intoxication Withdrawal: No Have you been hit, kicked, punched, or otherwise hurt by someone within the past year? If so, by whom?: No Do you feel safe in your current relationship?: Yes Advance Directives: Yes Advance Directives on File: Yes Advance Directives Date on File: 05/31/20 Do you have thoughts of harming others: None Do you have a plan to hurt others: No Plan Recently lost weight without trying: No Nutrition Risks: Dental problems service: No Current occupational status: retired Meds Allergies Allergy/AdvReac Type Severity Reaction Status Date / Time No Known Allergies Allergy Unknown NKA Verified 07/05/20 17:17 Active Medications: Current Medications Acetaminophen (Acetaminophen 325 Mg Tablet) 650 mg PO Q6H PRN PRN Reason: Pain, Mild (Pain Scale 1-3) Albuterol Sulfate (Albuterol Sulfate (0.083%) 2.5 Mg/3 Ml Vial.Neb) 2.5 mg INHALE Q4H PRN PRN Reason: sob/wheezing Aspirin (Aspirin Enteric Coated 81 Mg Tablet.) 81 mg PO DAILY [facility] Last Admin: 03/16/23 08:21 Dose: 81 mg Atenolol (Atenolol 50 Mg Tablet) 50 mg PO DAILY [facility]; Protocol Last Admin: 03/16/23 08:21 Dose: 50 mg Dextrose (Dextrose 50 % 25 Gm/50 Ml Syringe) 25 gm IVPUSH Q15M PRN; Protocol PRN Reason: per Hypoglycemia Standing Ord. Docusate Sodium (Docusate Sodium 100 Mg Capsule) 100 mg PO DAILY PRN PRN Reason: Constipation Enoxaparin Sodium (Enoxaparin Sodium 40 Mg/0.4 Ml Syringe) 40 mg SUBCUT Q24H [facility] Last Admin: 03/15/23 20:06 Dose: 40 mg Glucose (Glucose Gel 15 Gm Gel..Gram.) 15 gm PO Q15M PRN; Protocol PRN Reason: per Hypoglycemia Standing Ord. Guaifenesin (Guaifenesin 200 Mg/10 Ml 10 Ml Liquid) 10 ml PO Q6H PRN PRN Reason: Cough Hydralazine HCl (Hydralazine Hcl 25 Mg Tablet) 25 mg PO BID [facility]; Protocol Last Admin: 03/16/23 08:21 Dose: 25 mg Insulin Human Lispro (Insulin Lispro 100 Unit/Ml 3 Ml Vial) 0 unit SUBCUT QIDACHS [facility]; Protocol Last Admin: 03/16/23 08:06 Dose: Not Given Lorazepam (Lorazepam 0.5 Mg Tablet) 0.5 mg PO BID PRN PRN Reason: anxiety Olanzapine (Olanzapine 10 Mg Tablet) 20 mg PO BEDTIME [facility] Last Admin: 03/15/23 20:06 Dose: 20 mg Ondansetron HCl (Ondansetron Hcl 4 Mg/2 Ml Vial) 4 mg IVPUSH Q8H PRN PRN Reason: Nausea and Vomiting Pharmacy Consult (Consult Rx Perform Med Rec) 1 each MISCELLANE ONCE PRN PRN Reason: Consult order Pravastatin Sodium (Pravastatin Sodium 20 Mg Tablet) 20 mg PO BEDTIME [facility] Last Admin: 03/15/23 20:06 Dose: 20 mg Sodium Chloride (0.9 % Sodium Chloride Flush 3 Ml Syringe) 3 ml IVFLUSH QSHIFT [facility] Last Admin: 03/16/23 08:22 Dose: 3 ml Venlafaxine HCl (Venlafaxine Hcl Er 75 Mg Cap.Er.24h) 75 mg PO DAILY [facility] Last Admin: 03/16/23 08:21 Dose: 75 mg Venlafaxine HCl (Venlafaxine Hcl Er 150 Mg Cap.Er.24h) 150 mg PO DAILY [facility] Last Admin: 03/16/23 08:21 Dose: 150 mg Home Medications Medication Instructions Recorded Confirmed Last Taken Type hydralazine 25 mg tablet 25 mg PO BID 06/06/20 03/15/23 03/14/23 History lovastatin 20 mg tablet 20 mg PO BEDTIME 06/06/20 03/15/23 03/14/23 History venlafaxine 150 mg 150 mg PO DAILY 06/06/20 03/15/23 03/14/23 History capsule,extended release 24 hr venlafaxine 75 mg capsule,extended 75 mg PO DAILY 06/06/20 03/15/23 03/14/23 History release 24 hr aspirin 81 mg tablet,delayed 1 tab PO DAILY 05/18/22 03/15/23 03/14/23 History release glipizide 5 mg tablet 1 tab PO BID 05/18/22 03/15/23 03/14/23 History lorazepam 0.5 mg tablet 1 tab PO BID PRN anxiety 05/18/22 03/15/23 05/17/22 History olanzapine 20 mg tablet 1 tab PO BEDTIME 05/18/22 03/15/23 03/14/23 History Physical Exam Vital Signs: Vital Signs: Last Vital Signs Temp 97.8 F 03/16/23 07:08 Pulse 76 03/16/23 07:08 Resp 18 03/16/23 07:08 BP 150/73 H 03/16/23 07:08 Pulse Ox 91 L 03/16/23 07:08 O2 Del Method Room Air 03/16/23 07:08 O2 Flow Rate 2 03/15/23 11:41 Oxygen Flow Rate 2 03/15/23 08:46 BMI result Body Mass Index 23.5 Neuro: Other: he is alert and awake with normal spontaneity of speech fluency comprehension and affect. Face is symmetrical. Visual nascimento are full. There is no focal arm or leg weakness. [id number] testing is okay. Deep tendon reflexes are absent. Speech is normal Results Labs 03/16/23 05:28 03/16/23 05:28 Labs: Short CBC 03/16/23 Range/Units 05:28 WBC 7.0 (4.8-10.8) X10*3/uL Hgb 13.5 L (14.0-18.0) g/dl Hct 41.3 L (42.0-52.0) % Plt Count 123 L (160-400) X10*3/uL BMP 03/15/23 03/16/23 13:08 05:28 Sodium 135 141 Potassium 4.5 4.1 Chloride 107 108 Carbon Dioxide 19 L 24 BUN 22 H 22 H Creatinine 1.47 H 1.28 Calcium 8.2 L 8.5 Cardiac Enzymes 03/15/23 Range/Units 10:00 Total Creatine Kinase 48 (38-174) U/L Liver Function 03/15/23 Range/Units 13:08 Total Bilirubin 0.4 (0.0-1.0) mg/dL AST 14 (5-37) U/L ALT 11 (0-40) U/L Alkaline Phosphatase 107 (39-117) U/L Albumin 2.9 L (3.5-5.0) g/dL Urine 03/15/23 Range/Units 13:58 Urine Color Yellow Urine Appearance Clear Urine pH 6.0 (5.0-9.0) Ur Specific [place] >= 1.030 H (1.005-1.025) Urine Protein 100 (2+) H (Neg-Trace) mg/dL Urine Glucose (UA) 100 H (Negative) mg/dL head CT revealed moderate to severe diffuse cerebral atrophy and moderate to severe chronic microvascular ischemic changes. Assessment and Plan (1) Syncope and collapse: Status: Acute 67 years old man with multifactorial, probably moderate to severe, degenerative +vascular dementia. This resulted in significant cognitive and physical disability, which likely was responsible for him to lose balance and fall. At the same time he was at risk for seizure disorder 2. But at this time there was no clear indication of seizure. I recommend ruling out any other reason for low losing balance or falling or passing out including infection. Time Spent With Patient Time: Total time managing care of this patient today ____ minutes. Procedures Date of Service Date of Service: 03/16/23
--- NOTE | 2023-03-16 11:34 | MHC.CM.PN ---
IMM 03/16. Pt admitted with CHF, elevated troponin levels, and ? seizure. Pt lives with his , is independent/ self-care, uses a walker, has no services. D/C plan likely return home self-care vs home with new vna. Pts to transport. HCP on file and verified. PCP: Kayy perez
[2023-03-16 11:37] LABS: Glucose, Whole Blood 290 mg/dL (60-115)
[2023-03-16] MEDS: Insulin Lispro 100 UNIT/ML 3 ML VIAL SUBCUT (12:01)
[2023-03-16 12:13] LABS: Troponin-I High Sensitivity 195.1 ng/L (<3.5-35.0)
[2023-03-16 16:25] LABS: Glucose, Whole Blood 131 mg/dL (60-115)
[2023-03-16] MEDS: Enoxaparin Sodium 40 MG/0.4 ML SYRINGE SUBCUT (17:11)
[2023-03-16] MEDS: OLANZapine 10 MG TABLET 20 MG PO (20:17)
[2023-03-16] MEDS: Pravastatin Sodium 20 MG TABLET PO (20:17)
[2023-03-16 20:33] LABS: Glucose, Whole Blood 148 mg/dL (60-115)
[2023-03-17 03:34] VITALS: BP 154/75; PULSE 66; RESP 18; TEMP 36; O2SAT 90
[2023-03-17 06:09] LABS: B Type Natriuretic Peptide 397 pg/mL (<100)
[2023-03-17 07:05] VITALS: BP 130/77; PULSE 69; RESP 18; TEMP 36.4; O2SAT 98
[2023-03-17] MEDS: Aspirin Enteric Coated 81 MG TABLET.DR PO (07:34)
[2023-03-17] MEDS: atenoloL 50 MG TABLET PO (07:34)
[2023-03-17] MEDS: 0.9 % Sodium Chloride Flush 3 ML SYRINGE IVFLUSH ×3 (07:35→23:28)
[2023-03-17] MEDS: Venlafaxine HCl ER 150 MG CAP.ER.24H PO (07:35)
[2023-03-17 07:43] LABS: Glucose, Whole Blood 148 mg/dL (60-115)
[2023-03-17] MEDS: hydrALAZINE HCl 25 MG TABLET PO ×2 (09:04→21:10)
[2023-03-17] MEDS: Venlafaxine HCl ER 75 MG CAP.ER.24H PO (09:06)
--- NOTE | 2023-03-17 09:10 | HO.PM.IMPN ---
Subjective Subjective Date of Service: 03/17/23 Interval History: f/u on syncope, hypoxia Physical Exam Vital Signs: Vital Signs: Last Vital Signs Temp 97.5 F 03/17/23 07:05 Pulse 69 03/17/23 07:05 Resp 18 03/17/23 07:05 BP 130/77 03/17/23 07:05 Pulse Ox 98 03/17/23 07:05 O2 Del Method Room Air 03/17/23 07:05 O2 Flow Rate 2 03/15/23 11:41 Oxygen Flow Rate 2 03/15/23 08:46 BMI result Body Mass Index 23.5 Const: Other: General: AO X 3, no acute distress Resp: CTA bilateral CVS: S1,S2,RRR GI: +BS, NT, no distention Skin: No rash Neuro: motor grossly intact Psych: appropriate affect Objective Data Active Medications Acetaminophen (Acetaminophen 325 Mg Tablet) 650 mg PO Q6H PRN PRN Reason: Pain, Mild (Pain Scale 1-3) Albuterol Sulfate (Albuterol Sulfate (0.083%) 2.5 Mg/3 Ml Vial.Neb) 2.5 mg INHALE Q4H PRN PRN Reason: sob/wheezing Aspirin (Aspirin Enteric Coated 81 Mg Tablet.) 81 mg PO DAILY [facility] Last Admin: 03/17/23 07:34 Dose: 81 mg Documented By: DUSTY Atenolol (Atenolol 50 Mg Tablet) 50 mg PO DAILY [facility]; Protocol Last Admin: 03/17/23 07:34 Dose: 50 mg Documented By: DUSTY Dextrose (Dextrose 50 % 25 Gm/50 Ml Syringe) 25 gm IVPUSH Q15M PRN; Protocol PRN Reason: per Hypoglycemia Standing Ord. Docusate Sodium (Docusate Sodium 100 Mg Capsule) 100 mg PO DAILY PRN PRN Reason: Constipation Enoxaparin Sodium (Enoxaparin Sodium 40 Mg/0.4 Ml Syringe) 40 mg SUBCUT Q24H [facility] Last Admin: 03/16/23 17:11 Dose: 40 mg Documented By: DUSTY Glucose (Glucose Gel 15 Gm Gel..Gram.) 15 gm PO Q15M PRN; Protocol PRN Reason: per Hypoglycemia Standing Ord. Guaifenesin (Guaifenesin 200 Mg/10 Ml 10 Ml Liquid) 10 ml PO Q6H PRN PRN Reason: Cough Hydralazine HCl (Hydralazine Hcl 25 Mg Tablet) 25 mg PO BID [facility]; Protocol Last Admin: 03/17/23 09:04 Dose: 25 mg Documented By: DUSTY Insulin Human Lispro (Insulin Lispro 100 Unit/Ml 3 Ml Vial) 0 unit SUBCUT QIDACHS [facility]; Protocol Last Admin: 03/17/23 07:50 Dose: Not Given Documented By: DUSTY Non-Admin Reason: No Insulin Coverage Comments: per sliding scale Lorazepam (Lorazepam 0.5 Mg Tablet) 0.5 mg PO BID PRN PRN Reason: anxiety Olanzapine (Olanzapine 10 Mg Tablet) 20 mg PO BEDTIME [facility] Last Admin: 03/16/23 20:17 Dose: 20 mg Documented By: CAMI Ondansetron HCl (Ondansetron Hcl 4 Mg/2 Ml Vial) 4 mg IVPUSH Q8H PRN PRN Reason: Nausea and Vomiting Pharmacy Consult (Consult Rx Perform Med Rec) 1 each MISCELLANE ONCE PRN PRN Reason: Consult order Pravastatin Sodium (Pravastatin Sodium 20 Mg Tablet) 20 mg PO BEDTIME [facility] Last Admin: 03/16/23 20:17 Dose: 20 mg Documented By: CAMI Sodium Chloride (0.9 % Sodium Chloride Flush 3 Ml Syringe) [facility] Last Admin: 03/17/23 07:35 Dose: 3 ml Documented By: DUSTY Venlafaxine HCl (Venlafaxine Hcl Er 75 Mg Cap.Er.24h) 75 mg PO DAILY [facility] Last Admin: 03/17/23 09:06 Dose: 75 mg Documented By: DUSTY Venlafaxine HCl (Venlafaxine Hcl Er 150 Mg Cap.Er.24h) 150 mg PO DAILY [facility] Last Admin: 03/17/23 07:35 Dose: 150 mg Documented By: DUSTY Labs 03/16/23 05:28 03/16/23 05:28 Labs: Laboratory Results - last 24 hr 03/15/23 03/16/23 03/16/23 17:39 11:28 11:36 POC Glucose 290 H Troponin I High Sens 195.1 H* B-Natriuretic Peptide Respiratory Panel Moss See Note Adenovirus (Rapid PCR) Not Detected B.pert (TEM-PCR) Not Detected B.parapertussis DNA PCR Not Detected C. pneumoniae DNA (PCR) Not Detected Coronavirus OC43 (PCR) Not Detected Coronavirus HKU1 (PCR) Not Detected Coronavirus 229E (PCR) Not Detected Coronavirus NL63 (PCR) Not Detected Human Metapneumovir PCR Not Detected Influenza A (RT-PCR) Not Detected Influenza B (RT-PCR) Not Detected M. pneumoniae (PCR) Not Detected Parainfluenza 1 (PCR) Not Detected Parainfluenza 2 (PCR) Not Detected Parainfluenza 3 (PCR) Not Detected Parainfluenza 4 (PCR) Not Detected RSV (PCR) Not Detected Entero/Rhino (PCR) Detected A SARS-CoV-2 RNA (RT-PCR) Not Detected 03/16/23 03/16/23 03/17/23 16:22 20:26 05:22 POC Glucose 131 H 148 H Troponin I High Sens B-Natriuretic Peptide 397 H Respiratory Panel Moss Adenovirus (Rapid PCR) B.pert (TEM-PCR) B.parapertussis DNA PCR C. pneumoniae DNA (PCR) Coronavirus OC43 (PCR) Coronavirus HKU1 (PCR) Coronavirus 229E (PCR) Coronavirus NL63 (PCR) Human Metapneumovir PCR Influenza A (RT-PCR) Influenza B (RT-PCR) M. pneumoniae (PCR) Parainfluenza 1 (PCR) Parainfluenza 2 (PCR) Parainfluenza 3 (PCR) Parainfluenza 4 (PCR) RSV (PCR) Entero/Rhino (PCR) SARS-CoV-2 RNA (RT-PCR) 03/17/23 07:08 POC Glucose 148 H Troponin I High Sens B-Natriuretic Peptide Respiratory Panel Moss Adenovirus (Rapid PCR) B.pert (TEM-PCR) B.parapertussis DNA PCR C. pneumoniae DNA (PCR) Coronavirus OC43 (PCR) Coronavirus HKU1 (PCR) Coronavirus 229E (PCR) Coronavirus NL63 (PCR) Human Metapneumovir PCR Influenza A (RT-PCR) Influenza B (RT-PCR) M. pneumoniae (PCR) Parainfluenza 1 (PCR) Parainfluenza 2 (PCR) Parainfluenza 3 (PCR) Parainfluenza 4 (PCR) RSV (PCR) Entero/Rhino (PCR) SARS-CoV-2 RNA (RT-PCR) Assessment and Plan (1) Elevated troponin: Status: Acute (2) Acute and chronic respiratory failure with hypoxia: Status: Acute Plan 67 year old male with history CVA, CAD, CHF, T2DM, HTN, COPD, CKD stage 3, unspecified CHF, GERD, PAD, and anxiety/depression admitted for possible seizure with acute URI with elevated trops and JANEE. #?Absence seizure, CT unremarkable. Neuro doesn't think seizure, no further episodes #Acute hypoxemic respiratory failure- d/t rhinovisus, resolved, symptomatic treatment #Elevated trops, ? NSTEMI -Initial 258.8 a repeat 344.5, then 195, no chest paain, likely related to URI and hypoxia, get an echo tomorrow and if abnormal then get cardioology consult #Acute kidney injury- likely prerenal -Baseline CKD stage 3 -Creat 1.71, baseline around 0.79. Improved to 1.28 with 1L IV NS -Avoid nephrotoxins -Follow BMP #Chronic CHF, unspecified -Clinically no acute exacerbation -CXR/CTA chest negative for fluid overload -BNP 700, baseline unknown -Echo as above #COPD -no acute exacerbation -albuterol prn #General weakness -PT eval #HTN -continue home meds # [id number] type 2 diabetes -POC glucose -diabetic diet -Humalog on sliding scale # mood disorder -continue home meds # CAD/HLD -no ischemic changes on EKG, no anginal chest pain -continue ASA, beta-adriana, statin -as above DVT prophylaxis- full code Full code need for inpatient: NSTEMI, seizure management and workup Time Spent With Patient Time: Total time managing care of this patient today ____ minutes. Quality Stroke Does the patient have a stroke diagnosis?: No VTE Prior VTE?: No VTE Risk Level:: Medical - moderate - high VTE Device Contraindication: Treatment Not Indicated VTE Drug Contraindication: N/A - Med Ordered
[2023-03-17 11:11] VITALS: BP 119/65; PULSE 57; RESP 18; TEMP 36.4; O2SAT 92
[2023-03-17 11:42] LABS: Glucose, Whole Blood 221 mg/dL (60-115)
[2023-03-17] MEDS: Insulin Lispro 100 UNIT/ML 3 ML VIAL SUBCUT ×2 (11:54→21:11)
[2023-03-17 15:18] VITALS: BP 137/68; PULSE 59; RESP 20; TEMP 36.4; O2SAT 92
[2023-03-17 15:39] LABS: Glucose, Whole Blood 150 mg/dL (60-115)
--- NOTE | 2023-03-17 15:50 | MHC.CM.PN ---
PT recommended STR. This CM met with pt and his to discuss STR, and they had no preference other than they would like to stay within the [facility]. They did state that they do not want to go to [facility]. Referrals placed via careport. CM will continue to follow.
[2023-03-17] MEDS: Enoxaparin Sodium 40 MG/0.4 ML SYRINGE SUBCUT (17:40)
[2023-03-17 19:26] VITALS: BP 125/69; PULSE 67; RESP 20; TEMP 36.3; O2SAT 92
[2023-03-17 20:38] LABS: Glucose, Whole Blood 158 mg/dL (60-115)
[2023-03-17] MEDS: Pravastatin Sodium 20 MG TABLET PO (21:10)
[2023-03-17] MEDS: OLANZapine 10 MG TABLET 20 MG PO (21:10)
[2023-03-17 23:33] VITALS: BP 125/63; PULSE 64; RESP 18; TEMP 37.1; O2SAT 92
--- NOTE | 2023-03-18 07:00 | CA_ITS ---
Transthoracic Echocardiogram Patient (Last, First, Middle): Salvatore Hollingsworth R Gender: Male Date of : 1955 Age: 67 Procedure Date: 03/18/2023 Procedure Type: Transthoracic Echocardiogram Location: [facility] [place] Height: 170.18 cm Weight: 68.04 kg BSA: 1.79 m2 Heart Rate: bpm BP: 125 / 63 mmHg Repatcher: DEMARCUS Referring MD: Melani PEPPER Barrel Planer: Tim Britton MD Symptoms: elevated trops, chf Study Quality: Fair ECG Rhythm: Sinus Conclusions: - 1. Normal LV systolic function with LVEF of 60 65% 2. Dilated right-sided chambers with visually RV systolic function appears depressed 3. Severely elevated right ventricular systolic pressure with mildly elevated right atrial pressures 4. No gross pericardial effusion Findings Procedure Information Contrast agent, definity, is being given per protocol without apparent complications. Left Ventricle Normal left ventricular size, thickness, and systolic function. The visually estimated ejection fraction is between 60-65%. There is a flattened septum in systole consistent with right ventricular pressure overload. Spectral Doppler is indicative of an impaired relaxation filling pattern. E/E prime ratio is between 8 and 15 consistent with indeterminate filling pressures. Right Ventricle Moderately increased right ventricular cavity size. There is mildly decreased right ventricular systolic function. Atria The left atrium is normal in size. Interatrial shunt cannot be excluded. The right atrium is mildly dilated. Aortic Valve There is mild calcification of the aortic valve. There is mild thickening of the aortic valve. There is no aortic valve stenosis. There is no aortic valve regurgitation. Mitral Valve There is mild anterior and posterior mitral leaflet thickening. There is mild mitral annular calcification. There is trace mitral valve regurgitation. There is no mitral valve stenosis. Pulmonic Valve The pulmonic valve was not well visualized. Tricuspid Valve Normal tricuspid valve structure. There is mild to moderate tricuspid valve regurgitation. Mildly elevated right atrial pressure. Severe pulmonary hypertension is present. Great Vessels All visible segments of the aorta are normal in size. The pulmonary artery was not well visualized. Venous The inferior vena cava is normal in size and collapses less than 50% with inspiration. Pericardium/Pleural There is no evidence of pericardial effusion. Prior Study Comparison Significant changes compared to prior study dated: 07/08/2020. RV systolic pressure is significantly elevated Measurements 2D Linear Measurements IVSd: 1.04 0.6-0.9/0.6-1.0 cm LVIDd: 4.16 3.9-5.3/4.2-5.9 cm LVIDd Index: 2.32 2.4-3.2/2.2-3.1 cm/m2 LVIDs: 2.73 2.0-3.6 cm LVPWd: 1.07 0.7-1.1 cm Ao Root: 3.20 2.1-3.5 cm LA Diam: 2.90 2.7-3.8/3.0-4.0 cm LAIDs Index: 1.62 1.5-2.3 cm/m2 LV Mass: 181.48 67-162/88-224 g LV Mass Index: 101.39 43-95/49-115 g/m2 LVOT Diam: 2.00 3.0+(-)1.3 cm 2D Systolic Function EF 4C: 59.40 >55% EF 2C: 65.10 >55% EF BiP: 63.10 >55% Mitral Valve MV Pk E: 0.51 MV PK A: 0.78 MV Decel Time: 275.00 E/A: 0.70 E'Lateral: 5.22 E'Medial: 3.59 E/E' Med: 14.30 E/E' Lat: 9.80 PHT: 80.00 MVA PHT: 2.75 Decel [place]: 1.87 Aortic Valve AoV Pk Ilya: 1.18 AoV Mn Ilya: 0.69 AoV VTI: 0.24 AoV Pk Grad: 6.00 Aov Mn Grad: 2.00 TRAVIS Cont.VTI: 2.27 LVOT LVOT Pk Ilya: 0.75 LVOT Mn Ilya: 0.47 LVOT VTI: 0.18 LVOT Pk Grad: 2.00 LVOT Mn Grad: 1.00 LVOT Diam: 2.00 LVOT Area: 3.14 Diastolic Function MV Pk E: 0.51 MV Pk A: 0.78 E/A: 0.70 E'Medial: 3.59 E/E' Med: 14.30 E' Laterial: 5.22 E/E' Lat: 9.80 Right Ventricle TAPSE (mm): 23.00 TVS' Ilya: 9.00 Tricuspid Valve TR Pk Ilya: 3.96 TR Pk Grad: 63.00 RA Press: 8.00 RVSP: 71.00 Great Vessels Aorta Ao Root-2D: 3.20 2.0-3.7 cm Ao Asc: 3.20 2.1-3.4 cm Pulmonary Valve PV Pk Ilya: 0.69 Peak PV Grad: 2.00 Updated in Other Vendor System with Status of Final Tim Britton MD electronically signed on 03/18/2023 12:28:57 PM with status of Final
--- NOTE | 2023-03-18 07:12 | PC.NURSE ---
0400: Pt. refused vitals to be check.
[2023-03-18 07:15] VITALS: BP 122/78; PULSE 72; RESP 20; TEMP 36.3; O2SAT 88
[2023-03-18 07:30] LABS: Glucose, Whole Blood 147 mg/dL (60-115)
[2023-03-18] MEDS: Venlafaxine HCl ER 75 MG CAP.ER.24H PO (09:28)
[2023-03-18] MEDS: Venlafaxine HCl ER 150 MG CAP.ER.24H PO (09:28)
[2023-03-18] MEDS: hydrALAZINE HCl 25 MG TABLET PO (09:28)
[2023-03-18] MEDS: Aspirin Enteric Coated 81 MG TABLET.DR PO (09:28)
[2023-03-18] MEDS: atenoloL 50 MG TABLET PO (09:28)
[2023-03-18] MEDS: guaiFENesin 200 MG/10 ML 10 ML LIQUID PO (09:34)
[2023-03-18 10:14] VITALS: BP 122/78; PULSE 72; O2SAT 88
--- NOTE | 2023-03-18 10:47 | HO.PM.IMPN ---
Subjective Subjective Date of Service: 04/22/23 Interval History: f/u on syncope, hypoxia Physical Exam Vital Signs: Vital Signs: Last Vital Signs Temp 97.3 F 03/18/23 07:15 Pulse 72 03/18/23 10:14 Resp 20 03/18/23 07:15 BP 122/78 03/18/23 10:14 Pulse Ox 88 L 03/18/23 10:14 O2 Del Method Room Air 03/18/23 07:15 O2 Flow Rate 2 03/15/23 11:41 Oxygen Flow Rate 2 03/15/23 08:46 BMI result Body Mass Index 23.5 Const: Other: General: AO X 3, no acute distress Resp: CTA bilateral CVS: S1,S2,RRR GI: +BS, NT, no distention Skin: No rash Neuro: motor grossly intact Psych: appropriate affect Objective Data Active Medications Acetaminophen (Acetaminophen 325 Mg Tablet) 650 mg PO Q6H PRN PRN Reason: Pain, Mild (Pain Scale 1-3) Albuterol Sulfate (Albuterol Sulfate (0.083%) 2.5 Mg/3 Ml Vial.Jessica) 2.5 mg INHALE Q4H PRN PRN Reason: sob/wheezing Aspirin (Aspirin Enteric Coated 81 Mg Tablet.) 81 mg PO DAILY [facility] Last Admin: 03/18/23 09:28 Dose: 81 mg Documented By: BLANCA Atenolol (Atenolol 50 Mg Tablet) 50 mg PO DAILY [facility]; Protocol Last Admin: 03/18/23 09:28 Dose: 50 mg Documented By: BLANCA Dextrose (Dextrose 50 % 25 Gm/50 Ml Syringe) 25 gm IVPUSH Q15M PRN; Protocol PRN Reason: per Hypoglycemia Standing Ord. Docusate Sodium (Docusate Sodium 100 Mg Capsule) 100 mg PO DAILY PRN PRN Reason: Constipation Enoxaparin Sodium (Enoxaparin Sodium 40 Mg/0.4 Ml Syringe) 40 mg SUBCUT Q24H [facility] Last Admin: 03/17/23 17:40 Dose: 40 mg Documented By: DUSTY Glucose (Glucose Gel 15 Gm Gel..Gram.) 15 gm PO Q15M PRN; Protocol PRN Reason: per Hypoglycemia Standing Ord. Guaifenesin (Guaifenesin 200 Mg/10 Ml 10 Ml Liquid) 10 ml PO Q6H PRN PRN Reason: Cough Last Admin: 03/18/23 09:34 Dose: 10 ml Documented By: BLANCA Hydralazine HCl (Hydralazine Hcl 25 Mg Tablet) 25 mg PO BID [facility]; Protocol Last Admin: 03/18/23 09:28 Dose: 25 mg Documented By: BLANCA Insulin Human Lispro (Insulin Lispro 100 Unit/Ml 3 Ml Vial) 0 unit SUBCUT QIDACHS [facility]; Protocol Last Admin: 03/18/23 07:39 Dose: Not Given Documented By: BLANCA Non-Admin Reason: See Note Lorazepam (Lorazepam 0.5 Mg Tablet) 0.5 mg PO BID PRN PRN Reason: anxiety Olanzapine (Olanzapine 10 Mg Tablet) 20 mg PO BEDTIME [facility] Last Admin: 03/17/23 21:10 Dose: 20 mg Documented By: CLEO Ondansetron HCl (Ondansetron Hcl 4 Mg/2 Ml Vial) 4 mg IVPUSH Q8H PRN PRN Reason: Nausea and Vomiting Pharmacy Consult (Consult Rx Perform Med Rec) 1 each MISCELLANE ONCE PRN PRN Reason: Consult order Pravastatin Sodium (Pravastatin Sodium 20 Mg Tablet) 20 mg PO BEDTIME [facility] Last Admin: 03/17/23 21:10 Dose: 20 mg Documented By: CLEO Sodium Chloride (0.9 % Sodium Chloride Flush 3 Ml Syringe) 3 ml IVFLUSH QSHIFT [facility] Last Admin: 03/18/23 06:58 Dose: Not Given Documented By: BLANCA Non-Admin Reason: Previously Administered Venlafaxine HCl (Venlafaxine Hcl Er 75 Mg Cap.Er.24h) 75 mg PO DAILY [facility] Last Admin: 03/18/23 09:28 Dose: 75 mg Documented By: BLANCA Venlafaxine HCl (Venlafaxine Hcl Er 150 Mg Cap.Er.24h) 150 mg PO DAILY [facility] Last Admin: 03/18/23 09:28 Dose: 150 mg Documented By: BLANCA Labs 03/16/23 05:28 03/16/23 05:28 Labs: Laboratory Results - last 24 hr 03/17/23 03/17/23 03/17/23 11:13 15:32 20:29 POC Glucose 221 H 150 H 158 H 03/18/23 07:19 POC Glucose 147 H Assessment and Plan (1) Acute respiratory failure with hypoxia: Status: Acute Plan 67 year old male with history CVA, CAD, CHF, T2DM, HTN, COPD, CKD stage 3, unspecified CHF, GERD, PAD, and anxiety/depression admitted for possible seizure with acute URI with elevated trops and JANEE. #?Absence seizure, CT unremarkable. Neuro doesn't think seizure, no further episodes #Acute hypoxemic respiratory failure- d/t rhinovisus, resolved, symptomatic treatment #Elevated trops, ? NSTEMI -Initial 258.8 a repeat 344.5, then 195, no chest paain, likely related to URI and hypoxia, get an echo tomorrow and if abnormal then get cardioology consult #Acute kidney injury- likely prerenal -Baseline CKD stage 3 -Creat 1.71, baseline around 0.79. Improved to 1.28 with 1L IV NS -Avoid nephrotoxins -Follow BMP #Chronic CHF, unspecified -Clinically no acute exacerbation -CXR/CTA chest negative for fluid overload -BNP 700, baseline unknown -Echo as above #COPD -no acute exacerbation -albuterol prn #General weakness -PT eval #HTN -continue home meds # [id number] type 2 diabetes -POC glucose -diabetic diet -Humalog on sliding scale # mood disorder -continue home meds # CAD/HLD -no ischemic changes on EKG, no anginal chest pain -continue ASA, beta-adriana, statin -as above DVT prophylaxis- full code Full code need for inpatient: NSTEMI, seizure management and workup Time Spent With Patient Time: Total time managing care of this patient today ____ minutes. Quality Stroke Does the patient have a stroke diagnosis?: No VTE Prior VTE?: No VTE Risk Level:: Medical - moderate - high VTE Device Contraindication: Treatment Not Indicated VTE Drug Contraindication: N/A - Med Ordered
--- NOTE | 2023-03-18 11:04 | MHC.CM.PN ---
Patient has been medically cleared for dc to SNF/STR today. CM met with Patient at bedside and [facility]. Patient will dc to [facility] today at 2PM, via [facility]. CM has left a detailed message for /Savana @ [phone], informing her of the dc plan. Last IMM addressed on 03/16/2023.
--- NOTE | 2023-03-18 11:23 | PM.DS ---
DS: Providers Provider Date of Service: 03/18/23 Date of admission: 03/15/23 17:05 Primary care physician: Kayy Pabon NP Consults: 03/15/23 17:07 Consult to Neurology Routine Consulting Provider: [facility] Reason for consultation: absence seizure DS: Diagnosis Discharge Diagnosis (1) Elevated troponin: Status: Acute (2) Acute and chronic respiratory failure with hypoxia: Status: Acute DS: Summary Hospital Course Hospital Course: Chief Complaint: fall 67 year old male with history CVA, CAD, CHF, T2DM, HTN, COPD, CKD stage 3, unspecified CHF, GERD, PAD, and anxiety/depression presented to the ED for evaluation of a fall this morning. The patient reports he was walking to his chair with his walker and when he turned to sit felt very lightheaded and fell to his knees. No LOC or headstrike. His was unable to assist him to his feet and called EMS. When EMS arrived, per the the patient was noted to be unresponsive for a perior of about 2 minutes, awake but staring into space. No tonic clonic movements. No post ictal state reported. Denies history of seizures. Upon further questioning the patient has also been feeling generally unwell since yesterday with a productive cough. has similar symptoms. No fevers, chills, sinus pain, sore throat, abd pain, nausea, vomiting, diarrhea, dysuria, wheezing, palpitations, chest pain. He does endorse dyspnea on exertion, but states this is intermittent and long standing. No orthopnea, PND, BLE. He is also incontinent of urine at baseline. On arrival, patient afebrile, tachypneic to 26. Vitals otherwise stable, no hypoxia. No leukocytosis. Creat 1.71 on arrival, baseline around 1.30, BUN 22. Creat improved to 1.47 with IVF. Electrolytes normal. Initial trop 258.8, repeat 344.5. BNP 770. UA with 2+ protein, and elevated specific gravity. EKG shows NSR, rate 73, RBBB, no st/t wave abnormality. CXR negative for acute disease in chest. In the ED, given 1 L IV NS. Hospital course: Patient presented after a fall following a dizzy spell and fell to the ground and was reported by as been unresponsive for about 2 minutes, no head injury or joint injuy. Work up in the ED revealed JANEE on CKD 3, he was hyoxic but no evidence of pneumonia, he has been having non productive cough, respiratory panel was positive for rhinovirus, troponin I was elevated but he was not having chest pain, . Forther work up CT of chest was negative for pulmonary embolism. Patient was admitted for close monitoring. During hospitalization on cardiac telemetry there was no evidence of arrythmia, there was no evidence of seizure either.. He was seen by Neurologist who concluded that there was no evidence of seizure. It is likely that patient suffered dizzy spell from hypoxia from rhinovirus, and possible dehydration as evident by acute renal failure, elevated troponin I likewise was likely related to hypoxa, and renal failure and did not have chest pain. His condition improved during hospitalization, hypoxia resolved, JANEE resolved with IV fluid , he remains weak however, physical therapy is recommending short term rehab which the patient is agreable to. syncope--likely from hypoxia and dehydration, no arrythmia, no seizure #Acute hypoxemic respiratory failure- d/t rhinovisus, resolved, symptomatic treatment #Elevated trops, ? NSTEMI -Initial 258.8 a repeat 344.5, then 195, no chest paain, likely related to URI and hypoxia, #Acute kidney injury- likely prerenal, -Baseline CKD stage 3, resolved with IvF -Creat 1.71, baseline around 0.79. Improved to 1.28 P #Chronic CHF, unspecified--euvolemic #COPD -no acute exacerbation -albuterol prn #HTN -continue home meds # [id number] type 2 diabetes, resume glipizide # mood disorder -continue home meds # CAD/HLD -no ischemic changes on EKG, no anginal chest pain -continue ASA, beta-adriana, statin - To short term rehab for less than 30 days Time Spent with Patient Time attestation: Total time managing care of this patient today ____ minutes. Discharge coordination time: Greater than 30 minutes Quality: Safe Use of Opioids Does Pt have an Active Cancer Diagnosis on the Problem List?: No Quality: Stroke Does the patient have a stroke diagnosis?: No Physical Exam Vital Signs: Vital Signs: Last Vital Signs Temp 97.3 F 03/18/23 07:15 Pulse 72 03/18/23 10:14 Resp 20 03/18/23 07:15 BP 122/78 03/18/23 10:14 Pulse Ox 88 L 03/18/23 10:14 O2 Del Method Room Air 03/18/23 07:15 O2 Flow Rate 2 03/15/23 11:41 Oxygen Flow Rate 2 03/15/23 08:46 BMI result Body Mass Index 23.5 DS: Data Data Completed and Pending Completed studies during hospitalization [Text1]: Procedures Excision of Stomach, Pylorus, Via Natural or Artificial Opening Endoscopic, Diagnostic (07/05/20) Transfusion of Nonautologous Red Blood Cells into Peripheral Vein, Percutaneous Approach (07/05/20) Labs on day of discharge: Laboratory Results - last 24 hr 03/17/23 03/17/23 03/17/23 11:13 15:32 20:29 POC Glucose 221 H 150 H 158 H 03/18/23 07:19 POC Glucose 147 H Discharge Plan Discharge Anticipated Discharge Date/Time: 03/18/23 11:25 Patient Disposition: er [facility] Discharge Diagnosis: Acute hypoxic respiratory failure due to rhino virus, syncope due to hypoxia Referrals: [facility] [place] [Outside] - 1 Week Kayy Pabon NP [Primary Care Provider] - 1 Week Discharge Medications: New insulin lispro [Humalog U-100 Insulin] 100 unit/mL Solution See Protocol subcut QIDACHS Qty: 10 0RF Protocol: Insulin Correction Scale Less than or equal to 110 ---- Give (units): 0 111 to 150 Give (units): 0 151 to 200 Give (units): 2 201 to 250 Give (units): 4 251 to 300 Give (units): 6 301 to 350 Give (units): 8 Greater than 350 Give (units): 10 Call MD if Blood Glucose > : 350 Continued venlafaxine 75 mg capsule,extended release 24hr 75 mg PO DAILY venlafaxine 150 mg capsule,extended release 24hr 150 mg PO DAILY hydralazine 25 mg tablet 25 mg PO BID lovastatin 20 mg tablet 20 mg PO BEDTIME atenolol 50 mg tablet 50 mg PO DAILY Qty: 0 0RF aspirin 81 mg tablet,delayed release (DR/EC) 1 tab PO DAILY lorazepam 0.5 mg tablet 1 tab PO BID PRN (Reason: anxiety) olanzapine 20 mg tablet 1 tab PO BEDTIME glipizide 5 mg tablet 1 tab PO BID Discharge Orders: Discharge Order (Routine); Ordered 03/18/23 Ordered By: Jerry Aguero Diet: Advance to usual diet Activity on Discharge: As tolerated Stand Alone Forms: Patient Portal Discharge page Care Plan Goals: Full recovery from weakness from hospitalization, acute respiratory failure, hypoxia and syncope Health Concerns: Syncope rhonovius uri Plan of Treatment: to short term rehab Assessment: see above
[2023-03-18 12:00] VITALS: BP 127/74; PULSE 62; RESP 20; TEMP 36.4; O2SAT 91
[2023-03-18 12:08] LABS: Glucose, Whole Blood 202 mg/dL (60-115)
[2023-03-18] MEDS: Insulin Lispro 100 UNIT/ML 3 ML VIAL SUBCUT (12:09)
== END 2023-03-18 14:17 | disposition skilled nursing facility (03) | DRG 865 ==
LOC: HO.ED 08:53 → HO.EDOVER 17:30 → HO.IMC 18:11
PROVIDERS: Internal Medicine; Physician Assistant; Admitting Provider Physician Assistant; Emergency Provider Emergency Medicine; PCP Nurse Practitioner Family; Visit Provider Internal Medicine
DX: B34.1 Enterovirus infection, unspecified (principal); I21.4 Non-ST elevation (NSTEMI) myocardial infarction; I13.0 Hypertensive heart and chronic kidney disease with heart failure and stage 1 through stage 4 chronic kidney disease, or unspecified chronic kidney disease; N18.30 Chronic kidney disease, stage 3 unspecified; I50.9 Heart failure, unspecified; F01.C0 Vascular dementia, severe, without behavioral disturbance, psychotic disturbance, mood disturbance, and anxiety; J44.9 Chronic obstructive pulmonary disease, unspecified; E11.22 Type 2 diabetes mellitus with diabetic chronic kidney disease; I25.10 Atherosclerotic heart disease of native coronary artery without angina pectoris; Z20.822 Contact with and (suspected) exposure to COVID-19; Z79.4 Long term (current) use of insulin; Z79.82 Long term (current) use of aspirin; Z79.84 Long term (current) use of oral hypoglycemic drugs; Z79.899 Other long term (current) drug therapy
CPT/HCPCS: 36415; 70450; 71045; 71275; 80048; 80053; 81001; 82550; 82947; 83735; 83880; 84484; 85025; 85379; 85610; 85730; 87633; 87635; 93005; 93306; 97161; 97530; 99285; J1650; Q9957; Q9967

== ENCOUNTER → 2023-03-15 08:46 | Outpatient (BNV) | payer MEDICARE, OTHER, SELFPAY | PROVIDERS: Admitting Provider Physician Assistant; Emergency Provider Emergency Medicine; PCP Nurse Practitioner Family; Visit Provider Internal Medicine Cardiovascular Disease | DX: I45.2 Bifascicular block (principal); R94.31 Abnormal electrocardiogram [ECG] [EKG] | CPT/HCPCS: 93010 ==

== ENCOUNTER 2023-03-15 17:05 | Outpatient (BNV) | payer MEDICARE, OTHER, SELFPAY | END 2023-03-18 07:00 | PROVIDERS: Admitting Provider Physician Assistant; Emergency Provider Emergency Medicine; PCP Nurse Practitioner Family; Visit Provider Internal Medicine Cardiovascular Disease | DX: I36.1 Nonrheumatic tricuspid (valve) insufficiency (principal); I27.20 Pulmonary hypertension, unspecified | CPT/HCPCS: 93306 ==

== ENCOUNTER → 2023-03-15 17:05 | Outpatient (BNV) | payer MEDICARE, OTHER, SELFPAY | PROVIDERS: Admitting Provider Physician Assistant; Emergency Provider Emergency Medicine; PCP Nurse Practitioner Family; Visit Provider Physician Assistant | DX: J96.21 Acute and chronic respiratory failure with hypoxia (principal); R77.8 Other specified abnormalities of plasma proteins | CPT/HCPCS: 99223; 99232; 99239 ==

== ENCOUNTER 2024-03-23 07:34 | Inpatient (IN) | payer MEDICARE, OTHER, SELFPAY ==
[2024-03-23] VITALS (7 sets, daily range): BP systolic 138–152; BP diastolic 70–98; PULSE 89–106; RESP 16–20; TEMP 36.3–36.5; O2SAT 92–95; BMI 19.1; BMI 20.1
--- NOTE | ~2024-03-23 | XR_ITS ---
EXAMINATION: XR CHEST CLINICAL INFORMATION: Cough COMPARISON: CT chest and chest radiograph 03/15/2023 TECHNIQUE: Frontal view of the chest was obtained. FINDINGS: No significant abnormality is noted involving the heart, lungs, mediastinum, bony thorax or soft tissues. Again seen are some degenerative changes in the spine and some scattered areas of pulmonary scarring/atelectasis. XR/XR chest 1V IMPRESSION: No acute intrathoracic disease.
--- NOTE | 2024-03-23 07:52 | ECG_ITS ---
Test Reason : chest pain Blood Pressure : / mmHG Vent. Rate : 097 BPM Atrial Rate : 097 BPM P-R Int : 136 ms QRS Dur : 140 ms QT Int : 410 ms P-R-T Axes : 075 177 -32 degrees QTc Int : 520 ms Normal sinus rhythm Right bundle branch block Precordial T wave inversions- due to RVH vs ischemia Abnormal ECG When compared with ECG of 15-MAR-2023 14:35, QT has lengthened Referred By: Maurice Tomlin Electronically Signed By:Dev Hammer
--- NOTE | 2024-03-23 07:56 | ED_ITS ---
HPI - General Adult General Chief complaint: General Medical Stated complaint: DOESN'T FEEL SAFE AT HOME Time Seen by Provider: 03/23/24 07:38 Source: patient and EMS Mode of arrival: EMS History of Present Illness HPI narrative: This is a 68 years old with multiple medical problem which include coronary artery disease, congestive heart failure, type 2 diabetes, hypertension, COPD and chronic renal failure presented to the emergency department complaining of generalized weakness also stating that the assume feels safe at home with the current partner. He denies any chest pain at this time denies any fever vomiting diarrhea. He ambulates at baseline with a walker and said the house was not in good condition Onset (ago): day(s) (1) Radiation: non-radiation Relieving factors: none Exacerbating factors: none Associated symptoms: denies other symptoms Related Data Home Medications ?Medication ?Instructions ?Recorded ?Confirmed hydralazine 25 mg tablet 25 mg PO BID 06/06/20 03/15/23 lovastatin 20 mg tablet 20 mg PO BEDTIME 06/06/20 03/15/23 venlafaxine 150 mg 150 mg PO DAILY 06/06/20 03/15/23 capsule,extended release 24 hr venlafaxine 75 mg capsule,extended 75 mg PO DAILY 06/06/20 03/15/23 release 24 hr aspirin 81 mg tablet,delayed 1 tab PO DAILY 05/18/22 03/15/23 release glipizide 5 mg tablet 1 tab PO BID 05/18/22 03/15/23 lorazepam 0.5 mg tablet 1 tab PO BID PRN anxiety 05/18/22 03/15/23 olanzapine 20 mg tablet 1 tab PO BEDTIME 05/18/22 03/15/23 Previous Rx's ?Medication ?Instructions ?Recorded atenolol 50 mg tablet 50 mg PO DAILY #0 tabs 07/22/20 insulin lispro 100 unit/mL See Protocol subcut QIDACHS #10 mL 03/18/23 subcutaneous solution (Humalog U-100 Insulin) Allergies Allergy/AdvReac Type Severity Reaction Status Date / Time No Known Allergies Allergy Unknown NKA Verified 03/23/24 07:54 Review of Systems 2 Constitutional: Constitutional: Reports no additional constitutional complaints Cardiovascular: Cardiovascular: Reports no additional cardiovascular complaints Gastrointestinal: Gastrointestinal: Reports no additional gastrointestinal complaints PMFSH Past Medical History Attestation statement: The following information was validated with the patient. Medical History CKD (chronic kidney disease), stage III Type 2 diabetes mellitus CAD (coronary artery disease) CHF (congestive heart failure) Diabetes Abnormal EKG NSTEMI (non-ST elevated myocardial infarction) COVID-19 Blood bacterial culture positive COVID-19 COPD (chronic obstructive pulmonary disease) Hypertension Dizziness CVA (cerebral vascular accident) Surgical History History of percutaneous coronary intervention Social History Social History Household Members: Spouse Housing: Apartment Do you presently have visiting nurse or other home services: No Alcohol intake: never Comment: temp 98.9 Patient Tobacco Use Status: Never used Tobacco Smoked in Last 30 Days: No e-Cigarette/Vaping Use: Never Used Second Hand Smoke Exposure: No Use of substances other than those prescribed or required for medical reasons: No Advance Directives: Yes Advance Directives on File: Yes Advance Directives Date on File: 05/31/20 service: No Current occupational status: retired Physical Exam ED Vital Signs: Vital Signs - 24 hr 03/23/24 07:53 03/23/24 07:56 03/23/24 08:52 Temperature 97.6 F 97.5 F Pulse Rate 100 97 94 Respiratory Rate 20 20 Blood Pressure 141/81 H 142/82 H Pulse Oximetry 92 93 95 Oxygen Delivery Method Room Air Room Air Room Air BMI result Body Mass Index 19.1 Const Other: Cachectic appearing 68 years old male Nutritional Appearance: cachectic and malnourished Orientation/consciousness: patient oriented x3 HENMT Head: Yes normal to inspection General nose exam: Normal external nose present Face and sinus: Yes normal facial exam Neck Neck: Yes normal visual inspection Chest Chest palpation & inspection: normal inspection of the chest Resp Effort & Inspection: normal respiratory effort Auscultation: rhonchi Cardio Palpation: normal PMI Rate: regular rate Rhythm: regular rhythm GI Inspection: Yes normal to inspection Palpation (GI): Soft to palpation, not firm and nontender Skin Other: Diffuse rash see pictures the rash is in the upper extremity lower extremity Neuro General: patient oriented x3 Course Reevaluation(s) Reevaluation #1: Patient was Medications Administered Generic Name Dose Route Start Last Admin Trade Name Gloria PRN Reason Stop Dose Admin Enoxaparin Sodium 40 mg 03/23/24 13:45 03/23/24 14:16 Enoxaparin Sodium 40 Mg/0.4 Ml Syringe SUBCUT 40 mg Q24H RASHI Administration Discontinued Medications Generic Name Dose Route Start Last Admin Trade Name Gloria PRN Reason Stop Dose Admin Ceftriaxone Sodium 1 gm/ 50 mls @ 100 mls/hr 03/23/24 09:03 03/23/24 10:34 Sodium Chloride IV 03/23/24 09:32 Infused ONCE ONE Infusion Permethrin 1 appl 03/23/24 08:45 03/23/24 09:07 Permethrin 5 % Cream 60 Gm Tube TOPICAL 03/23/24 08:46 1 appl ONCE ONE Administration Medical Decision Making Lab Data 03/23/24 08:16 03/23/24 08:16 Labs: Lab Results 03/23/24 Range/Units 08:16 WBC 13.5 H (4.8-10.8) X10*3/uL RBC 5.43 (4.60-5.80) X10*6/uL Hgb 16.3 D (14.0-18.0) g/dl Hct 47.5 (42.0-52.0) % MCV 87.5 (80.0-98.0) fL MCH 30.0 (27.0-33.0) pg MCHC 34.3 (31.0-36.0) g/dl RDW 15.9 (11.0-16.0) % Plt Count 194 D (160-400) X10*3/uL MPV 8.4 L (9.4-12.4) fL Immature Gran % (Auto) 0.9 H (0.0-0.4) % Neut % (Auto) 78.6 H (45-73) % Lymph % (Auto) 12.5 L (20-40) % [place] % (Auto) 6.4 (2-11) % Eos % (Auto) 0.9 (0-4) % Baso % (Auto) 0.7 (0-2) % Lymph # (Auto) 1.7 (1.2-4.9) X10*3/uL [place] # (Auto) 0.9 (0.1-1.2) X10*3/uL Eos # (Auto) 0.1 (0.0-0.4) X10*3/uL Baso # (Auto) 0.1 (0.0-0.2) X10*3/uL Abs Immat Gran (auto) 0.12 H (0.00-0.03) X10*3/uL Absolute Neuts (auto) 10.6 H (2.0-8.3) x10*3/uL Absolute Nucleated RBC 0.000 (0.0-0.012) X10*3/uL Nucleated RBC % (auto) 0.0 (0.0-0.2) /100WBC Sodium 141 (135-145) mmol/L Potassium 4.2 (3.3-5.1) mmol/L Chloride 104 (96-108) mmol/L Carbon Dioxide 24 (22-29) mmol/L Anion Gap 17 (12-20) BUN 18 H (9-16) mg/dL Creatinine 1.36 (0.5-1.4) mg/dL Estim Creat Clear Calc 39.5 Estimated GFR 52 Random Glucose 188 H (60-115) mg/dL Calcium 9.4 D (8.4-10.2) mg/dL Total Bilirubin 0.7 (0.0-1.0) mg/dL AST 15 (5-37) U/L ALT 12 (0-40) U/L Alkaline Phosphatase 134 H (39-117) U/L Troponin I High Sens 17.1 D (<3.5-35.0) ng/L Total Protein 6.9 (6.5-8.0) g/dL Albumin 3.0 L (3.5-5.0) g/dL Urine Color Dark Yellow Urine Appearance Turbid Urine pH 6.5 (5.0-9.0) Ur Specific [place] 1.025 (1.005-1.025) Urine Protein >=1000 (4+) H (Neg-Trace) mg/dL Urine Glucose (UA) 250 H (Negative) mg/dL Urine Ketones Trace (Negative) mg/dL Urine Blood Moderate (2+) H (Negative) Urine Nitrite Positive H (Negative) Ur Leukocyte Esterase Large (3+) H (Negative) Urine RBC 3-5 H (0-2) /HPF Urine WBC >50 H (0-5) /HPF Ur Squamous Epith Cells 0-2 (0-2) /HPF Other Crystals Present Urine Bacteria 4+ (None Seen) Hyaline Casts 0-2 (0-2) /LPF Independent Interpretation I performed an independent interpretation of an: EKG (EKG was reviewed by me interpreted by me as sinus rhythm rate 97 right bundle-branch block (right bundle is old)) Discharge Plan Discharge Clinical Impression: Acute UTI, Rash Patient Disposition: Admitted As Inpatient
[2024-03-23 08:19] LABS: MANUAL DIFF FLAG NO
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
[2024-03-23 08:21] LABS: Basophils Absolute Auto 0.1 X10*3/uL (0.0-0.2); Basophils Percent Auto 0.7 % (0-2); Eosinophils Absolute Auto 0.1 X10*3/uL (0.0-0.4); Eosinophils Percent Auto 0.9 % (0-4); Hematocrit 47.5 % (42.0-52.0); Hemoglobin 16.3 g/dl (14.0-18.0); Imm Gran Abs Auto 0.12 X10*3/uL (0.00-0.03); Imm Gran Pct Auto 0.9 % (0.0-0.4); Lymphocytes Absolute Auto 1.7 X10*3/uL (1.2-4.9); Lymphocytes Percent Auto 12.5 % (20-40); Mean Corpuscular HGB Conc 34.3 g/dl (31.0-36.0); Mean Corpuscular Volume 87.5 fL (80.0-98.0); Mean Platelet Volume 8.4 fL (9.4-12.4); Monocytes Absolute Auto 0.9 X10*3/uL (0.1-1.2); Monocytes Percent Auto 6.4 % (2-11); Neutrophils Absolute Auto 10.6 x10*3/uL (2.0-8.3); Neutrophils Percent Auto 78.6 % (45-73); Platelet Count 194 X10*3/uL (160-400); Red Blood Count 5.43 X10*6/uL (4.60-5.80); Red Cell Distribution Width 15.9 % (11.0-16.0); White Blood Count 13.5 X10*3/uL (4.8-10.8)
[2024-03-23 08:22] LABS: Appearance Urine Turbid; Color Urine Dark Yellow; Glucose Urine UA 250 mg/dL (Negative); Leukocyte Esterase Urine Large (3+) (Negative); Nitrite Urine Positive (Negative); PH 6.5 (5.0-9.0); Specific Gravity - Urine 1.025 (1.005-1.025); UMIC TRIGGER UACC YES; Urine Blood Moderate (2+) (Negative); Urine Ketones Trace mg/dL (Negative); Urine Protein >=1000 (4+) mg/dL (Neg-Trace)
--- OUTSIDE RECORDS SUMMARY | 2024-03-23 08:24 | XMS_ITS | Continuity of Care Document ---
Author Organization [facility] d[facility] Address [address] [place] [address]- Care Team Providers Care Terminal Makeup Operator Name Role Phone Marc ROSARIO, Yessy Aguirre Primary Care Physici an Encounter [facility] Date(s): 09/25/23 - 10/25/23 [facility] Adult Medicine [address] [place] [address]- Allergies, Adverse Reactions, Alerts No Known Allergies [...] toxoids (Td) 12/22/04 Given 1Result Comment: [facility] [id number] 2Result Comment: [facility] [id number] 3Admin Note: vis 03/20/13 4Admin Note: Pt [...] 09/15/21 12:58:00 EST, Route to Pharmacy Electronically, [facility]/pharmacy #[id number], Partial fill upon patient request if the prescription is for a schedule II opioid drug. Start Date: 09/15/21 Stop Date: 03/14/22 Status: Ordered Aspirin Low Dose 81 mg oral delayed release tablet 1 tablet, By Mouth, Daily, # 90 tablet, 1 Refills, Maintenance, 02/05/23 6:25:00 EDT, [facility] STORE [id number], 170.18, cm, 06/27/22 13:34:00 EDT, Height Start Date: 02/05/23 Status: Ordered atenolol 50 mg oral tablet See Instructions, TAKE 1 TABLET BY MOUTH EVERY DAY, # 180 tablet, Refills 0, Tot. Refills 0, Maintenance, 02/12/23 12:24:00 EDT, Instructions Replace Required Details, Route to Pharmacy Electronically, [facility]/pharmacy #[id number], 170.18, cm, 06/27/22 13:34:0... Start Date: 02/12/23 Status: Ordered Colace sodium 100 mg oral capsule 100 mg, 1, capsule, By Mouth, 2 times a day, PRN, with plenty of water, # 60 capsule, Refills 1, Tot. Refills 1, Maintenance, for constipation, 10/28/18 11:12:39 EST, Route to Pharmacy Electronically, [id number], [facility]/pharmacy... Start Date: 10/28/18 Status: Ordered [...] day, # 180 tablet, Refills 0, Maintenance, 09/28/23 7:53:00 EST, Route to Pharmacy Electronically, [facility] STORE [id number], 170.18, cm, 06/27/22 13:34:00 EDT, Height Start Date: 09/28/23 Status: Ordered hydrALAZINE 25 mg oral tablet 1, tablet, By Mouth, 2 times a day, # 180 tablet, Refills 1, Tot. Refills 1, Maintenance, 04/16/23 10:06:00 EDT, Route to Pharmacy Electronically, [facility]/pharmacy #[id number], 170.18, cm, 06/27/22 13:34:00 EDT, Height Start Date: 04/16/23 Status: Ordered LORazepam 0.5 mg oral tablet See Instructions, TAKE 1 TABLET BY MOUTH TWICE A DAY NEEDED FOR ANXIETY, # 42 tablet, 0 Refills,Soft Stop, 10/24/22 20:13:00 EST, [facility]/pharmacy #[id number], 170.18, cm, 06/27/22 13:34:00 EDT, Height Start Date: 10/24/22 Status: Ordered LORazepam 0.5 mg oral tablet 1 tablet = 0.5 mg, By Mouth, 2 times a day, as needed for anxiety, # 60 tablet, 0 Refills, Soft Stop, 04/24/23 12:19:00 EDT, [facility]/pharmacy #[id number], 170.18, cm, 06/27/22 13:34:00 EDT, Height Start Date: 04/24/23 Stop Date: 05/24/23 Status: Ordered lovastatin 20 mg oral tablet See Instructions, TAKE 1 TABLET BY MOUTH EVERY DAY WITH EVENING MEAL, # 90 tablet, 0 Refills, Maintenance, 09/28/23 7:53:00 EST, [facility] STORE [id number], 170.18, cm, 06/27/22 13:34:00 EDT, Height Start Date: 09/28/23 Status: Ordered NovoLOG FlexPen 100 units/mL injectable solution See Instructions, Subcutaneous Infusion 3 times a day before meals per Sliding Scale. No more than 24 units in a 24 hour period., # 3 mL, 11 Refills, Maintenance, 09/15/21 12:59:00 EST, [facility] Start Date: 09/15/21 Status: Ordered olanzapine 20 mg oral tablet 1 tablet, By Mouth, Daily, # 30 tablet, 0 Refills, Maintenance, 10/21/23 16:07:00 EST, [id number] 170[facility], cm, 06/27/22 13:34:00 EDT, Height Start Date: 10/21/23 Stop Date: 11/20/23 Status: Ordered Pen [place], 30 G x 8 mm BD Ultra [...] Mouth, Daily, # 90 capsule, 1 Refills, 04/16/23 10:07:00 EDT, [id number], 170.18, cm, 06/27/22 13:34:00 EDT, Height Start Date: 04/16/23 Status: Ordered venlafaxine 150 mg oral capsule, extended release 1 capsule, By Mouth, Daily, # 90 capsule, 0 Refills, Maintenance, 03/14/23 0:16:00 EDT, [facility]ORE [id number], 170.18, cm, 06/27/22 13:34:00 EDT, Height Start Date: 03/14/23 Status: Ordered venlafaxine 75 mg oral capsule, extended release 1 capsule, By Mouth, Daily, # 30 capsule, 0 Refills, 10/21/23 16:07:00 EST, [id number], 170.18, cm, 06/27/22 13:34:00 EDT, Height Start Date: 10/21/23 Status: Ordered Problem List Condition Confirmation Course [...] Care team information Care Team Personnel Name: Yessy Tran NP Position: S PCO Associate Professional Member Role: PCP Address: Address: [address] [place] [address] [place] [address]- Care Team Related Persons Name: JONI BUENO Address: home [address] [place] [id number]
--- OUTSIDE RECORDS SUMMARY | 2024-03-23 08:24 | XMS_ITS | Continuity of Care Document ---
Author Organization [facility] Address [address] [place] [address]- Care Team Providers Care Band Saw Operator Name Role Phone Cm ROSARIO, Kayy Kulkarni Primary Care Physician Unav ailable Encounter [facility] Date(s): 05/01/23 - 05/31/23 [facility] [address] [place] [address]- Allergies, Adverse Reactions, Alerts No Known Allergies [...] toxoids (Td) 12/22/04 Given 1Result Comment: [facility] [id number] 2Result Comment: [facility] [id number] 3Admin Note: vis 03/20/13 4Admin Note: Pt reports received while in hospital. [facility] Medications aero chamber aero [...] 12:58:00 EST, Route to Pharmacy Electronically, [facility]/pharmacy #[id number], Partial fill upon patient request if the prescription is for a schedule II opioid drug. Start Date: 09/15/21 Stop Date: 03/14/22 Status: Ordered Aspirin Low Dose 81 mg oral delayed release tablet 1 tablet, By Mouth, Daily, # 90 tablet, 1 Refills, Maintenance, 02/05/23 6:25:00 EDT, [facility] STORE 25719, 170.18, cm, 06/27/22 13:34:00 EDT, Height Start Date: 02/05/23 Status: Ordered atenolol 50 mg oral tablet See Instructions, TAKE 1 TABLET BY MOUTH EVERY DAY, # 180 tablet, Refills 0, Tot. Refills 0, Maintenance, 02/12/23 12:24:00 EDT, Instructions Replace Required Details, Route to Pharmacy Electronically, [facility]/pharmacy #[id number], 170.18, cm, 06/27/22 13:34:0... Start Date: 02/12/23 Status: Ordered Colace sodium 100 mg oral capsule 100 mg, 1, capsule, By Mouth, 2 times a day, PRN, with plenty of water, # 60 capsule, Refills 1, Tot. Refills 1, Maintenance, for constipation, 10/28/18 11:12:39 EST, Route to Pharmacy Electronically, [id number], [facility]/pharmacy... Start Date: 10/28/18 Status: Ordered FREESTYLE 28G [...] day, # 180 tablet, Refills 0, Maintenance, 04/16/23 9:53:00 EDT, Route to Pharmacy Electronically, [facility] STORE [id number], 170.18, cm, 06/27/22 13:34:00 EDT, Height Start Date: 04/16/23 Status: Ordered hydrALAZINE 25 mg oral tablet 1, tablet, By Mouth, 2 times a day, # 180 tablet, Refills 1, Tot. Refills 1, Maintenance, 04/16/23 10:06:00 EDT, Route to Pharmacy Electronically, [facility]/pharmacy #1, 170.18, cm, 06/27/22 13:34:00 EDT, Height Start Date: 04/16/23 Status: Ordered LORazepam 0.5 mg oral tablet See Instructions, TAKE 1 TABLET BY MOUTH TWICE A DAY NEEDED FOR ANXIETY, # 42 tablet, 0 Refills,Soft Stop, 10/24/22 20:13:00 EST, [facility]/pharmacy #1, 170.18, cm, 06/27/22 13:34:00 EDT, Height Start Date: 10/24/22 Status: Ordered LORazepam 0.5 mg oral tablet 1 tablet = 0.5 mg, By Mouth, 2 times a day, as needed for anxiety, # 60 tablet, 0 Refills, Soft Stop, 04/24/23 12:19:00 EDT, [facility]/pharmacy #1, 170.18, cm, 06/27/22 13:34:00 EDT, Height Start Date: 04/24/23 Stop Date: 05/24/23 Status: Ordered lovastatin 20 mg oral tablet See Instructions, TAKE 1 TABLET BY MOUTH EVERY DAY WITH EVENING MEAL, # 90 tablet, 1 Refills, Maintenance, 02/05/23 6:25:00 EDT, [facility] STORE 45017, 170.18, cm, 06/27/22 13:34:00 EDT, Height Start Date: 02/05/23 Status: Ordered NovoLOG FlexPen 100 units/mL injectable solution See Instructions, Subcutaneous Infusion 3 times a day before meals per Sliding Scale. No more than 24 units in a 24 hour period., # 3 mL, 11 Refills, Maintenance, 09/15/21 12:59:00 EST, [facility] Start Date: 09/15/21 Status: Ordered olanzapine 20 mg oral tablet 1 tablet, By Mouth, Daily, # 90 tablet, 1 Refills, Maintenance, 02/25/23 8:58:00 EDT, [facility]/pharmacy #[id number], 170.18, cm, 06/27/22 13:34:00 EDT, Height Start Date: 02/25/23 Status: Ordered Pen [place], 30 G x 8 mm BD Ultra [...] 90 capsule, 1 Refills, 04/16/23 10:07:00 EDT, [facility]/pharmacy #[id number], 170.18, cm, 06/27/22 13:34:00 EDT, Height Start Date: 04/16/23 Status: Ordered venlafaxine 150 mg oral capsule, extended release 1 capsule, By Mouth, Daily, # 90 capsule, 0 Refills, Maintenance, 03/14/23 0:16:00 EDT, [facility], 170.18, cm, 06/27/22 13:34:00 EDT, Height Start Date: 03/14/23 Status: Ordered venlafaxine 75 mg oral capsule, extended release 1 capsule, By Mouth, Daily, # 90 capsule, 1 Refills, 04/16/23 10:08:00 EDT, [id number], 170.18, cm, 06/27/22 13:34:00 EDT, Height Start Date: 04/16/23 Status: Ordered Problem List Condition Confirmation Course [...] S PCO Associate Professional Member Role: PCP Care Team Related Persons Name: JONI BUENO Address: [address] [address]
--- OUTSIDE RECORDS SUMMARY | 2024-03-23 08:24 | XMS_ITS | Continuity of Care Document ---
Author Organization [facility] d[facility] Address [address] [place] [address]- Care Team Providers Care Nursing Program Director Name Role Phone Marc ROSARIO, Yessy Aguirre Primary Care Physici an Encounter [facility] Date(s): 09/28/23 - 10/28/23 [facility] [address] [place] [address]- Allergies, Adverse Reactions, Alerts No Known Allergies [...] 12/22/04 Given 1Result Comment: [facility] [id number] 2Result Comment: [facility] [id number] 3Admin Note: vis 03/20/13 4Admin Note: Pt [...] tablet, 1 Refills, Maintenance, 02/05/23 6:25:00 EDT, [facility] STORE 20059, 170.18, cm, 06/27/22 13:34:00 EDT, Height Start Date: 02/05/23 Status: Ordered atenolol 50 mg oral tablet See Instructions, TAKE 1 TABLET BY MOUTH EVERY DAY, # 180 tablet, Refills 0, Tot. Refills 0, Maintenance, 02/12/23 12:24:00 EDT, Instructions Replace Required Details, Route to Pharmacy Electronically, [facility]/pharmacy #[id number], 170.18, cm, 06/27/22 13:34:0... Start Date: 02/12/23 Status: Ordered Colace sodium 100 mg oral capsule 100 mg, 1, capsule, By Mouth, 2 times a day, PRN, with plenty of water, # 60 capsule, Refills 1, Tot. Refills 1, Maintenance, for constipation, 10/28/18 11:12:39 EST, Route to Pharmacy Electronically, [id number], [facility]/pharmacy... Start Date: 10/28/18 Status: Ordered [...] 09/28/23 7:53:00 EST, Route to Pharmacy Electronically, [facility] STORE 51679, 170.18, cm, 06/27/22 13:34:00 EDT, Height Start Date: 09/28/23 Status: Ordered hydrALAZINE 25 mg oral tablet 1, tablet, By Mouth, 2 times a day, # 180 tablet, Refills 1, Tot. Refills 1, Maintenance, 04/16/23 10:06:00 EDT, Route to Pharmacy Electronically, [facility]/pharmacy #[id number], 170.18, cm, 06/27/22 13:34:00 EDT, Height Start Date: 04/16/23 Status: Ordered LORazepam 0.5 mg oral tablet See Instructions, TAKE 1 TABLET BY MOUTH TWICE A DAY NEEDED FOR ANXIETY, # 42 tablet, 0 Refills,Soft Stop, 10/24/22 20:13:00 EST, [facility]/pharmacy #[id number], 170.18, cm, 06/27/22 13:34:00 EDT, Height Start Date: 10/24/22 Status: Ordered LORazepam 0.5 mg oral tablet 1 tablet = 0.5 mg, By Mouth, 2 times a day, as needed for anxiety, # 60 tablet, 0 Refills, Soft Stop, 04/24/23 12:19:00 EDT, [id number], 170.18, cm, 06/27/22 13:34:00 EDT, Height Start Date: 04/24/23 Stop Date: 05/24/23 Status: Ordered lovastatin 20 mg oral tablet See Instructions, TAKE 1 TABLET BY MOUTH EVERY DAY WITH EVENING MEAL, # 90 tablet, 0 Refills, Maintenance, 09/28/23 7:53:00 EST, [facility] STORE 11980, 170.18, cm, 06/27/22 13:34:00 EDT, Height Start Date: 09/28/23 Status: Ordered NovoLOG FlexPen 100 units/mL injectable solution See Instructions, Subcutaneous Infusion 3 times a day before meals per Sliding Scale. No more than 24 units in a 24 hour period., # 3 mL, 11 Refills, Maintenance, 09/15/21 12:59:00 EST, [facility] Start Date: 09/15/21 Status: Ordered olanzapine 20 mg oral tablet 1 tablet, By Mouth, Daily, # 30 tablet, 0 Refills, Maintenance, 10/21/23 16:07:00 EST[facility], 06/27/22 13:34:00 EDT, Height Start Date: 10/21/23 Stop Date: 11/20/23 Status: Ordered Pen [place], 30 G x 8 mm BD Ultra [...] Refills, Maintenance, 03/14/23 0:16:00 EDT, [facility], 170.18, cm, 06/27/22 13:34:00 EDT, Height Start [...] Associate Professional Member Role: PCP Address: Address: [address] [place] [address] Practice [place] [address]- Care Team Related Persons Name: JONI BUENO Address: home [address] [place] [id number]
--- OUTSIDE RECORDS SUMMARY | 2024-03-23 08:24 | XMS_ITS | Continuity of Care Document ---
Author Organization [facility] Address [address] [place] [address]- Care Team Providers Care Dancer Or Choreographer Name Role Phone Marc ROSARIO, Yessy Aguirre Primary Care Physici an Encounter [facility] Date(s): 11/12/23 - 12/12/23 [facility] [address] [place] [address]- Allergies, Adverse Reactions, Alerts No Known Allergies Immunizations Given and Recorded Vaccine Date Status Refusal Reason influenza virus vaccine, inactivated 05/22/23 Santo rded influenza virus vaccine, inactivated 05/27/22 Santo rded influenza virus vaccine, inactivated 1 09/20/21 Gi [...] Comment: [facility] [id number] 2Result Comment: [facility] [id number] 3Admin Note: vis 03/20/13 4Admin Note: Pt reports received while in hospital. [facility] Medications aero chamber aero chamber, with albuterol, By Mouth, Every 6 hours, PRN sob /wheeze, # 1 applicator, Refills 0, Tot. Refills 0, Maintenance, 11/08/10 11:23:49 Start Date: 11/08/10 Status: Ordered aspirin 81 mg oral delayed release tablet 81 mg, 1, tablet, By Mouth, Daily, # 90 tablet, Refills 1, Tot. Refills 1, Maintenance, 09/15/21 12:58:00 EST, Route to Pharmacy Electronically, [facility]/pharmacy #[id number], Partial fill upon patient request if the prescription is for a schedule II opioid drug. Start Date: 09/15/21 Stop Date: 03/14/22 Status: Ordered Aspirin Low Dose 81 mg oral delayed release tablet 1 tablet, By Mouth, Daily, # 90 tablet, 1 Refills, Maintenance, 02/05/23 6:25:00 EDT, [facility] STORE 77054, 170.18, cm, 06/27/22 13:34:00 EDT, Height Start Date: 02/05/23 Status: Ordered atenolol 50 mg oral tablet See Instructions, TAKE 1 TABLET BY MOUTH EVERY DAY, # 180 tablet, Refills 0, Tot. Refills 0, Maintenance, 02/12/23 12:24:00 EDT, Instructions Replace Required Details, Route to Pharmacy Electronically, [facility]/pharmacy #2071, 170.18, cm, 06/27/22 13:34:0... Start Date: 02/12/23 Status: Ordered Colace sodium 100 mg oral capsule 100 mg, 1, capsule, By Mouth, 2 times a day, PRN, with plenty of water, # 60 capsule, Refills 1, Tot. Refills 1, Maintenance, for constipation, 10/28/18 11:12:39 EST, Route to Pharmacy Electronically, [id number], [facility]/pharmacy... Start Date: 10/28/18 Status: Ordered FREESTYLE [...] 09/28/23 7:53:00 EST, Route to Pharmacy Electronically, [facility] STORE 66889, 170.18, cm, 06/27/22 13:34:00 EDT, Height Start Date: 09/28/23 Status: Ordered hydrALAZINE 25 mg oral tablet 1, tablet, By Mouth, 2 times a day, # 180 tablet, Refills 1, Tot. Refills 1, Maintenance, 04/16/23 10:06:00 EDT, Route to Pharmacy Electronically, [facility]/pharmacy #2071, 170.18, cm, 06/27/22 13:34:00 EDT, Height Start Date: 04/16/23 Status: Ordered LORazepam 0.5 mg oral tablet See Instructions, TAKE 1 TABLET BY MOUTH TWICE A DAY NEEDED FOR ANXIETY, # 42 tablet, 0 Refills,Soft Stop, 10/24/22 20:13:00 EST, [facility]/pharmacy #2071, 170.18, cm, 06/27/22 13:34:00 EDT, Height Start Date: 10/24/22 Status: Ordered LORazepam 0.5 mg oral tablet 1 tablet = 0.5 mg, By Mouth, 2 times a day, as needed for anxiety, # 60 tablet, 0 Refills, Soft Stop, 04/24/23 12:19:00 EDT, [facility]/pharmacy #2071, 170.18, cm, 06/27/22 13:34:00 EDT, Height Start Date: 04/24/23 Stop Date: 05/24/23 Status: Ordered lovastatin 20 mg oral tablet See Instructions, TAKE 1 TABLET BY MOUTH EVERY DAY WITH EVENING MEAL, # 90 tablet, 0 Refills, Maintenance, 09/28/23 7:53:00 EST, [facility] STORE 83510, 170.18, cm, 06/27/22 13:34:00 EDT, Height Start Date: 09/28/23 Status: Ordered NovoLOG FlexPen 100 units/mL injectable solution See Instructions, Subcutaneous Infusion 3 times a day before meals per Sliding Scale. No more than 24 units in a 24 hour period., # 3 mL, 11 Refills, Maintenance, 09/15/21 12:59:00 EST, [facility] #[facility] Start Date: 09/15/21 Status: Ordered olanzapine 20 mg oral tablet 1 tablet, By Mouth, Daily, # 30 tablet, 0 Refills, Maintenance, 10/21/23 16:07:00 EST, [facility]/pharmacy#2071, 170.18, cm, 06/27/22 13:34:00 EDT, Height Start Date: 10/21/23 Stop Date: 11/20/23 Status: Ordered Pen [place], 30 G x 8 mm BD Ultra [...] 14:24:28 Start Date: 03/19/16 Status: Ordered venlafaxine 75 mg oral capsule, extended release 1 capsule, By Mouth, Daily, # 90 capsule, 1 Refills, Maintenance, 11/12/23 9:03:00 EDT, [facility], 170.18, cm, 06/27/22 13:34:00 EDT, Height Start Date: 11/12/23 Status: Ordered Problem List Condition Confirmation Course [...] Care team information Care Team Personnel Name: Marc ROSARIO, Yessy Aguirre Position: [facility] PCO Associate Professional Member Role: PCP Address: Address: [address] [place] [address] [place] [address]- Care Team Related Persons Name: JONI BUENO Address: home [address] [place] [address]
--- OUTSIDE RECORDS SUMMARY | 2024-03-23 08:24 | XMS_ITS | Continuity of Care Document ---
Author Organization [facility] Address [address] [place] [address]- Care Team Providers Care Theatrical Dresser Name Role Phone Marc ROSARIO, Yessy Aguirre Primary Care Physici an Encounter [facility] Date(s): 11/13/23 - 12/13/23 [facility] [employer] [facility] [address] [place] [address]- Attending Physician: Tramaine Quevedo Admitting Physician: AdmTramaine curtis Referring Physician: AdmtrTramaine Allergies, Adverse Reactions, Alerts No Known Allergies [...] tetanus-diphtheria toxoids (Td) 12/22/04 Given 1Result Comment: [facility] [id number] 2Result Comment: [facility] [id number] 3Admin Note: vis 03/20/13 4Admin Note: Pt [...] 09/15/21 12:58:00 EST, Route to Pharmacy Electronically, [facility]/pharmacy #2075, Partial fill upon patient request if the prescription is for a schedule II opioid drug. Start Date: 09/15/21 Stop Date: 03/14/22 Status: Ordered Aspirin Low Dose 81 mg oral delayed release tablet 1 tablet, By Mouth, Daily, # 90 tablet, 1 Refills, Maintenance, 02/05/23 6:25:00 EDT, [facility], 170.18, cm, 06/27/22 13:34:00 EDT, Height Start Date: 02/05/23 Status: Ordered atenolol 50 mg oral tablet See Instructions, TAKE 1 TABLET BY MOUTH EVERY DAY, # 180 tablet, Refills 0, Tot. Refills 0, Maintenance, 02/12/23 12:24:00 EDT, Instructions Replace Required Details, Route to Pharmacy Electronically, [facility]/pharmacy #2070, 170.18, cm, 06/27/22 13:34:0... Start Date: 02/12/23 Status: Ordered Colace sodium 100 mg oral capsule 100 mg, 1, capsule, By Mouth, 2 times a day, PRN, with plenty of water, # 60 capsule, Refills 1, Tot. Refills 1, Maintenance, for constipation, 10/28/18 11:12:39 EST, Route to Pharmacy Electronically, [id number], [facility]/pharmacy... Start Date: 10/28/18 Status: Ordered FREESTYLE [...] 09/28/23 7:53:00 EST, Route to Pharmacy Electronically, [facility] STORE 57482, 170.18, cm, 06/27/22 13:34:00 EDT, Height Start Date: 09/28/23 Status: Ordered hydrALAZINE 25 mg oral tablet 1, tablet, By Mouth, 2 times a day, # 180 tablet, Refills 1, Tot. Refills 1, Maintenance, 04/16/23 10:06:00 EDT, Route to Pharmacy Electronically, [facility]/pharmacy #2071, 170.18, cm, 06/27/22 13:34:00 EDT, Height Start Date: 04/16/23 Status: Ordered LORazepam 0.5 mg oral tablet See Instructions, TAKE 1 TABLET BY MOUTH TWICE A DAY NEEDED FOR ANXIETY, # 42 tablet, 0 Refills,Soft Stop, 10/24/22 20:13:00 EST, [facility]/pharmacy #2071, 170.18, cm, 06/27/22 13:34:00 EDT, Height Start Date: 10/24/22 Status: Ordered LORazepam 0.5 mg oral tablet 1 tablet = 0.5 mg, By Mouth, 2 times a day, as needed for anxiety, # 60 tablet, 0 Refills, Soft Stop, 04/24/23 12:19:00 EDT, [facility]/pharmacy #2071, 170.18, cm, 06/27/22 13:34:00 EDT, Height Start Date: 04/24/23 Stop Date: 05/24/23 Status: Ordered lovastatin 20 mg oral tablet See Instructions, TAKE 1 TABLET BY MOUTH EVERY DAY WITH EVENING MEAL, # 90 tablet, 0 Refills, Maintenance, 09/28/23 7:53:00 EST, [facility] STORE 46393, 170.18, cm, 06/27/22 13:34:00 EDT, Height Start Date: 09/28/23 Status: Ordered NovoLOG FlexPen 100 units/mL injectable solution See Instructions, Subcutaneous Infusion 3 times a day before meals per Sliding Scale. No more than 24 units in a 24 hour period., # 3 mL, 11 Refills, Maintenance, 09/15/21 12:59:00 EST, [facility] #2 Start Date: 09/15/21 Status: Ordered olanzapine 20 mg oral tablet 1 tablet, By Mouth, Daily, # 30 tablet, 0 Refills, Maintenance, 10/21/23 16:07:00 EST, [facility] 170.18, cm, 06/27/22 13:34:00 EDT, Height Start Date: 10/21/23 Stop Date: 11/20/23 Status: Ordered Pen [place], 30 G x 8 mm BD Ultra [...] Refills, Maintenance, 11/12/23 9:03:00 EDT, [facility], 170.18, cm, 06/27/22 13:34:00 EDT, Height Start [...] Cigarettes; Other: 1ppd; entered on: 01/08/17 Sex Laboratory * Event Display: Non BH Lab Results Authored Date: * Event Display: Non BH Lab Results Authored Date: * Kayy Pabon NP: REVIEW Event Display: Non BH Lab Results Authored Date: * Event Display: Laboratory Result Scanned Authored Date: * Kayy Pabon NP: REVIEW Event Display: Non BH Lab Results Authored Date: Radiology * Event Display: X-Ray Abdomen, Non- BH Authored Date: Patient Care team information Care Team Personnel Name: Marc ROSARIO, Yessy Aguirre Position: [facility] PCO Associate Professional Member Role: PCP Address: Address: [address] [place] [address] [place] [address]- Care Team Related Persons Name: JONI BUENO Address: home [address] [place] [id number]
--- OUTSIDE RECORDS SUMMARY | 2024-03-23 08:24 | XMS_ITS | Continuity of Care Document ---
Author Organization [email or web address] Address [address] [place] [address]- Care Team Providers Care Wine Bottle Inspector Name Role Phone Marc ROSARIO, Yessy Aguirre Primary Care Physici an Encounter [facility] Date(s): 10/21/23 - 11/20/23 [facility] [facility] [address] [place] [address]- Allergies, Adverse Reactions, Alerts No Known Allergies [...] tetanus-diphtheria toxoids (Td) 12/22/04 Given 1Result Comment: [facility] 18141-781-54 2Result Comment: [facility] [id number] 3Admin Note: vis 03/20/13 4Admin Note: Pt reports received while in hospital. [facility] Medications aero chamber aero chamber, [...] EST, Route to Pharmacy Electronically, [facility]/pharmacy #2071, Partial fill upon patient request if the prescription is for a schedule II opioid drug. Start Date: 09/15/21 Stop Date: 03/14/22 Status: Ordered Aspirin Low Dose 81 mg oral delayed release tablet 1 tablet, By Mouth, Daily, # 90 tablet, 1 Refills, Maintenance, 02/05/23 6:25:00 EDT, [facility] STORE 82002, 170.18, cm, 06/27/22 13:34:00 EDT, Height Start Date: 02/05/23 Status: Ordered atenolol 50 mg oral tablet See Instructions, TAKE 1 TABLET BY MOUTH EVERY DAY, # 180 tablet, Refills 0, Tot. Refills 0, Maintenance, 02/12/23 12:24:00 EDT, Instructions Replace Required Details, Route to Pharmacy Electronically, [facility]/pharmacy #2071, 170.18, cm, 06/27/22 13:34:0... Start Date: 02/12/23 Status: Ordered Colace sodium 100 mg oral capsule 100 mg, 1, capsule, By Mouth, 2 times a day, PRN, with plenty of water, # 60 capsule, Refills 1, Tot. Refills 1, Maintenance, for constipation, 10/28/18 11:12:39 EST, Route to Pharmacy Electronically, [id number], [facility]/pharmacy... Start Date: 10/28/18 Status: Ordered FREESTYLE [...] 09/28/23 7:53:00 EST, Route to Pharmacy Electronically, [facility] STORE 02072, 170.18, cm, 06/27/22 13:34:00 EDT, Height Start Date: 09/28/23 Status: Ordered hydrALAZINE 25 mg oral tablet 1, tablet, By Mouth, 2 times a day, # 180 tablet, Refills 1, Tot. Refills 1, Maintenance, 04/16/23 10:06:00 EDT, Route to Pharmacy Electronically, [facility]/pharmacy #2071, 170.18, cm, 06/27/22 13:34:00 EDT, Height Start Date: 04/16/23 Status: Ordered LORazepam 0.5 mg oral tablet See Instructions, TAKE 1 TABLET BY MOUTH TWICE A DAY NEEDED FOR ANXIETY, # 42 tablet, 0 Refills,Soft Stop, 10/24/22 20:13:00 EST, [facility]/pharmacy #2071, 170.18, cm, 06/27/22 13:34:00 EDT, Height Start Date: 10/24/22 Status: Ordered LORazepam 0.5 mg oral tablet 1 tablet = 0.5 mg, By Mouth, 2 times a day, as needed for anxiety, # 60 tablet, 0 Refills, Soft Stop, 04/24/23 12:19:00 EDT, [facility]/pharmacy #2071, 170.18, cm, 06/27/22 13:34:00 EDT, Height Start Date: 04/24/23 Stop Date: 05/24/23 Status: Ordered lovastatin 20 mg oral tablet See Instructions, TAKE 1 TABLET BY MOUTH EVERY DAY WITH EVENING MEAL, # 90 tablet, 0 Refills, Maintenance, 09/28/23 7:53:00 EST, [facility] STORE 41740, 170.18, cm, 06/27/22 13:34:00 EDT, Height Start Date: 09/28/23 Status: Ordered NovoLOG FlexPen 100 units/mL injectable solution See Instructions, Subcutaneous Infusion 3 times a day before meals per Sliding Scale. No more than 24 units in a 24 hour period., # 3 mL, 11 Refills, Maintenance, 09/15/21 12:59:00 EST, [facility] #2 Start Date: 09/15/21 Status: Ordered olanzapine 20 mg oral tablet 1 tablet, By Mouth, Daily, # 30 tablet, 0 Refills, Maintenance, 10/21/23 16:07:00 EST, [facility]/pharmacy#2071, 170.18, cm, 06/27/22 13:34:00 EDT, Height Start Date: 10/21/23 Stop Date: 11/20/23 Status: Ordered Pen [place], 30 G x 8 mm BD Ultra [...] Refills, Maintenance, 11/12/23 9:03:00 EDT, [facility], 170.18, cm, 06/27/22 13:34:00 EDT, Height Start [...] Personnel Name: Marc ROSARIO, Yessy Aguirre Position: [facility] PCO Associate Professional Member Role: PCP Address: Address: [address] [place] [address] [place] [address]- Care Team Related Persons Name: JONI BUENO Address: home [address] [place] [address]
--- OUTSIDE RECORDS SUMMARY | 2024-03-23 08:25 | XMS_ITS | Continuity of Care Document ---
Author Organization [facility] Address [address] [place] [address]- Care Team Providers Care Internal Audit Senior Manager Name Role Phone Marc ROSARIO, Yessy Aguirre Primary Care Physici an Encounter [facility] Date(s): 10/21/23 - 12/13/23 [facility] [employer] [facility] [address] [place] [address]- Attending Physician: Marc ROSARIO, Yessy Aguirre Allergies, Adverse Reactions, Alerts No Known Allergies Immunizations Given and Recorded Vaccine Date Status Refusal Reason influenza virus vaccine, inactivated 05/22/23 Santo rded influenza virus vaccine, inactivated 05/27/22 Santo rded influenza virus vaccine, inactivated 1 09/20/21 Gi jsoafat influenza virus vaccine, inactivated 06/08/20 Santo rded [...] Given 1Result Comment: [facility] [id number] 2Result Comment: [facility] [id number] 3Admin Note: vis 03/20/13 4Admin Note: Pt [...] 09/15/21 12:58:00 EST, Route to Pharmacy Electronically, [facility]/pharmacy #2071, Partial fill upon patient request if the prescription is for a schedule II opioid drug. Start Date: 09/15/21 Stop Date: 03/14/22 Status: Ordered Aspirin Low Dose 81 mg oral delayed release tablet 1 tablet, By Mouth, Daily, # 90 tablet, 1 Refills, Maintenance, 02/05/23 6:25:00 EDT, [facility] STORE 98434, 170.18, cm, 06/27/22 13:34:00 EDT, Height Start Date: 02/05/23 Status: Ordered atenolol 50 mg oral tablet See Instructions, TAKE 1 TABLET BY MOUTH EVERY DAY, # 180 tablet, Refills 0, Tot. Refills 0, Maintenance, 02/12/23 12:24:00 EDT, Instructions Replace Required Details, Route to Pharmacy Electronically, [facility]/pharmacy #2071, 170.18, cm, 06/27/22 13:34:0... Start Date: 02/12/23 Status: Ordered Colace sodium 100 mg oral capsule 100 mg, 1, capsule, By Mouth, 2 times a day, PRN, with plenty of water, # 60 capsule, Refills 1, Tot. Refills 1, Maintenance, for constipation, 10/28/18 11:12:39 EST, Route to Pharmacy Electronically, [id number], [facility]/pharmacy... Start Date: 10/28/18 Status: Ordered FREESTYLE 28G [...] 09/28/23 7:53:00 EST, Route to Pharmacy Electronically, [facility] ST[facility] 20997, 170.18, cm, 06/27/22 13:34:00 EDT, Height Start Date: 09/28/23 Status: Ordered hydrALAZINE 25 mg oral tablet 1, tablet, By Mouth, 2 times a day, # 180 tablet, Refills 1, Tot. Refills 1, Maintenance, 04/16/23 10:06:00 EDT, Route to Pharmacy Electronically, [facility]/pharmacy #2071, 170.18, cm, 06/27/22 13:34:00 EDT, Height Start Date: 04/16/23 Status: Ordered LORazepam 0.5 mg oral tablet See Instructions, TAKE 1 TABLET BY MOUTH TWICE A DAY NEEDED FOR ANXIETY, # 42 tablet, 0 Refills,Soft Stop, 10/24/22 20:13:00 EST, [facility]/pharmacy #2071, 170.18, cm, 06/27/22 13:34:00 EDT, Height Start Date: 10/24/22 Status: Ordered LORazepam 0.5 mg oral tablet 1 tablet = 0.5 mg, By Mouth, 2 times a day, as needed for anxiety, # 60 tablet, 0 Refills, Soft Stop, 04/24/23 12:19:00 EDT, [facility]/pharmacy #2071, 170.18, cm, 06/27/22 13:34:00 EDT, Height Start Date: 04/24/23 Stop Date: 05/24/23 Status: Ordered lovastatin 20 mg oral tablet See Instructions, TAKE 1 TABLET BY MOUTH EVERY DAY WITH EVENING MEAL, # 90 tablet, 0 Refills, Maintenance, 09/28/23 7:53:00 EST, [facility] 81766, 170.18, cm, 06/27/22 13:34:00 EDT, Height Start Date: 09/28/23 Status: Ordered NovoLOG FlexPen 100 units/mL injectable solution See Instructions, Subcutaneous Infusion 3 times a day before meals per Sliding Scale. No more than 24 units in a 24 hour period., # 3 mL, 11 Refills, Maintenance, 09/15/21 12:59:00 EST, [facility] #2 Start Date: 09/15/21 Status: Ordered olanzapine 20 mg oral tablet 1 tablet, By Mouth, Daily, # 30 tablet, 0 Refills, Maintenance, 10/21/23 16:07:00 EST, [facility]/pharmacy#1, 170.18, cm, 06/27/22 13:34:00 EDT, Height Start Date: 10/21/23 Stop Date: 11/20/23 Status: Ordered Pen [place], 30 G x 8 mm BD Ultra [...] AM,PRN:Other,Instr:dissolve in water or juice. Start Date: 9/10/19 Status: Ordered senna - oral tablet 1 tablet, By Mouth, Daily at bedtime, Per med rec 03/19/16 with the pt's . KL, 0 Refills, Maintenance, 03/19/16 14:24:28 Start Date: 03/19/16 Status: Ordered venlafaxine 75 mg oral capsule, extended release 1 capsule, By Mouth, Daily, # 90 capsule, 1 Refills, Maintenance, 11/12/23 9:03:00 EDT, [facility], 170.18, cm, 06/27/22 13:34:00 EDT, Height Start [...] Personnel Name: Marc ROSARIO, Yessy Aguirre Position: [facility] PCO Associate Professional Member Role: PCP Address: Address: [address] [place] [address] [place] [address]- Care Team Related Persons Name: JONI BUENO Address: home [address] [address]
--- OUTSIDE RECORDS SUMMARY | 2024-03-23 08:25 | XMS_ITS | Continuity of Care Document ---
Author Organization [facility] Address [address] [place] [address]- Care Team Providers Care Filling Separator Name Role Phone Marc ROSARIO, Yessy Aguirre Primary Care Physici an Encounter [facility] Date(s): 12/29/23 - 01/28/24 [facility] [employer] Adult Medicine [address] [place] [address]- Allergies, Adverse Reactions, Alerts No Known Allergies [...] 12/22/04 Given 1Result Comment: [facility] [id number] 2Result Comment: [facility] [id number] 3Admin Note: vis 03/20/13 4Admin Note: Pt reports received while in hospital. [place] Medications aero chamber aero chamber, with albuterol, By Mouth, Every 6 hours, PRN sob /wheeze, # 1 applicator, Refills 0, Tot. Refills 0, Maintenance, 11/08/10 11:23:49 Start Date: 11/08/10 Status: Ordered aspirin 81 mg oral delayed release tablet 81 mg, 1, tablet, By Mouth, Daily, # 90 tablet, Refills 1, Tot. Refills 1, Maintenance, 09/15/21 12:58:00 EST, Route to Pharmacy Electronically, [facility]/pharmacy #2071, Partial fill upon patient request if the prescription is for a schedule II opioid drug. Start Date: 09/15/21 Stop Date: 03/14/22 Status: Ordered Aspirin Low Dose 81 mg oral delayed release tablet 1 tablet, By Mouth, Daily, # 90 tablet, 1 Refills, Maintenance, 02/05/23 6:25:00 EDT, [facility] 48503, 170.18, cm, 06/27/22 13:34:00 EDT, Height Start Date: 02/05/23 Status: Ordered atenolol 50 mg oral tablet See Instructions, TAKE 1 TABLET BY MOUTH EVERY DAY, # 180 tablet, Refills 0, Tot. Refills 0, Maintenance, 02/12/23 12:24:00 EDT, Instructions Replace Required Details, Route to Pharmacy Electronically, [facility]/pharmacy #2071, 170.18, cm, 06/27/22 13:34:0... Start Date: 02/12/23 Status: Ordered Colace sodium 100 mg oral capsule 100 mg, 1, capsule, By Mouth, 2 times a day, PRN, with plenty of water, # 60 capsule, Refills 1, Tot. Refills 1, Maintenance, for constipation, 10/28/18 11:12:39 EST, Route to Pharmacy Electronically, [id number], [facility]/pharmacy... Start Date: 10/28/18 Status: Ordered FREESTYLE 28G [...] 09/28/23 7:53:00 EST, Route to Pharmacy Electronically, [facility]ORE 06098, 170.18, cm, 06/27/22 13:34:00 EDT, Height Start Date: 09/28/23 Status: Ordered hydrALAZINE 25 mg oral tablet 1, tablet, By Mouth, 2 times a day, # 180 tablet, Refills 1, Tot. Refills 1, Maintenance, 04/16/23 10:06:00 EDT, Route to Pharmacy Electronically, [facility]/pharmacy #2071, 170.18, cm, 06/27/22 13:34:00 EDT, Height Start Date: 04/16/23 Status: Ordered LORazepam 0.5 mg oral tablet See Instructions, TAKE 1 TABLET BY MOUTH TWICE A DAY NEEDED FOR ANXIETY, # 42 tablet, 0 Refills,Soft Stop, 10/24/22 20:13:00 EST, [facility]/pharmacy #2071, 170.18, cm, 06/27/22 13:34:00 EDT, Height Start Date: 10/24/22 Status: Ordered LORazepam 0.5 mg oral tablet 1 tablet = 0.5 mg, By Mouth, 2 times a day, as needed for anxiety, # 60 tablet, 0 Refills, Soft Stop, 04/24/23 12:19:00 EDT, [facility]/pharmacy #2071, 170.18, cm, 06/27/22 13:34:00 EDT, Height Start Date: 04/24/23 Stop Date: 05/24/23 Status: Ordered lovastatin 20 mg oral tablet See Instructions, TAKE 1 TABLET BY MOUTH EVERY DAY WITH EVENING MEAL, # 90 tablet, 0 Refills, Maintenance, 09/28/23 7:53:00 EST, [facility] 88640, 170.18, cm, 06/27/22 13:34:00 EDT, Height Start Date: 09/28/23 Status: Ordered NovoLOG FlexPen 100 units/mL injectable solution See Instructions, Subcutaneous Infusion 3 times a day before meals per Sliding Scale. No more than 24 units in a 24 hour period., # 3 mL, 11 Refills, Maintenance, 09/15/21 12:59:00 EST, [facility] #2 Start Date: 09/15/21 Status: Ordered olanzapine 20 mg oral tablet 1 tablet, By Mouth, Daily, # 30 tablet, 0 Refills, Maintenance, 10/21/23 16:07:00 EST, [facility]/pharmacy#2071, 170.18, cm, 06/27/22 13:34:00 EDT, Height Start Date: 10/21/23 Stop Date: 11/20/23 Status: Ordered Pen [place], 30 G x 8 mm BD Ultra [...] Refills, Maintenance, 11/12/23 9:03:00 EDT, [facility], 170.18, cm, 06/27/22 13:34:00 EDT, Height Start [...] Personnel Name: Marc ROSARIO, Yessy Aguirre Position: [facility] PCO Associate Professional Member Role: PCP Address: Address: [address] [place] [address] [place] [address]- Care Team Related Persons Name: JONI BUENO Address: home [address] [place] [id number]
--- OUTSIDE RECORDS SUMMARY | 2024-03-23 08:26 | XMS_ITS | Continuity of Care Document ---
Author Organization [facility] Address [address] [place] [address]- Care Team Providers Care Handstitching Machine Collar Feller Name Role Phone Marc ROSARIO, Yessy Aguirre Primary Care Physici an Encounter [facility] Date(s): 01/23/24 - 02/22/24 [facility] [address] [place] [address]- Allergies, Adverse Reactions, Alerts No Known Allergies [...] Comment: [facility] [id number] 2Result Comment: [facility] [id number] 3Admin Note: vis 03/20/13 4Admin Note: Pt reports received while in hospital. [facility] Medications aero chamber aero chamber, with albuterol, By Mouth, Every 6 hours, PRN sob /wheeze, # 1 applicator, Refills 0, Tot. Refills 0, Maintenance, 11/08/10 11:23:49 Start Date: 11/08/10 Status: Ordered aspirin 81 mg oral delayed release tablet 81 mg, 1, tablet, By Mouth, Daily, # 90 tablet, Refills 1, Tot. Refills 1, Maintenance, 09/15/21 12:58:00 EST, Route to Pharmacy Electronically, [facility]/pharmacy #[id number], Partial fill upon patient request if the prescription is for a schedule II opioid drug. Start Date: 09/15/21 Stop Date: 03/14/22 Status: Ordered Aspirin Low Dose 81 mg oral delayed release tablet 1 tablet, By Mouth, Daily, # 90 tablet, 1 Refills, Maintenance, 02/05/23 6:25:00 EDT, [facility] STORE 18967, 170.18, cm, 06/27/22 13:34:00 EDT, Height Start Date: 02/05/23 Status: Ordered atenolol 50 mg oral tablet See Instructions, TAKE 1 TABLET BY MOUTH EVERY DAY, # 180 tablet, Refills 0, Tot. Refills 0, Maintenance, 02/12/23 12:24:00 EDT, Instructions Replace Required Details, Route to Pharmacy Electronically, [facility]/pharmacy #[id number], 170.18, cm, 06/27/22 13:34:0... Start Date: 02/12/23 Status: Ordered Colace sodium 100 mg oral capsule 100 mg, 1, capsule, By Mouth, 2 times a day, PRN, with plenty of water, # 60 capsule, Refills 1, Tot. Refills 1, Maintenance, for constipation, 10/28/18 11:12:39 EST, Route to Pharmacy Electronically, [id number], [facility]/pharmacy... Start Date: 10/28/18 [...] 09/28/23 7:53:00 EST, Route to Pharmacy Electronically, [facility] STORE 04930, 170.18, cm, 06/27/22 13:34:00 EDT, Height Start Date: 09/28/23 Status: Ordered hydrALAZINE 25 mg oral tablet 1, tablet, By Mouth, 2 times a day, # 180 tablet, Refills 1, Tot. Refills 1, Maintenance, 04/16/23 10:06:00 EDT, Route to Pharmacy Electronically, [facility]/pharmacy #[id number], 170.18, cm, 06/27/22 13:34:00 EDT, Height Start Date: 04/16/23 Status: Ordered LORazepam 0.5 mg oral tablet See Instructions, TAKE 1 TABLET BY MOUTH TWICE A DAY NEEDED FOR ANXIETY, # 42 tablet, 0 Refills,Soft Stop, 10/24/22 20:13:00 EST, [facility]/pharmacy #[id number], 170.18, cm, 06/27/22 13:34:00 EDT, Height Start Date: 10/24/22 Status: Ordered LORazepam 0.5 mg oral tablet 1 tablet = 0.5 mg, By Mouth, 2 times a day, as needed for anxiety, # 60 tablet, 0 Refills, Soft Stop, 04/24/23 12:19:00 EDT, [facility]/pharmacy #[id number], 170.18, cm, 06/27/22 13:34:00 EDT, Height Start Date: 04/24/23 Stop Date: 05/24/23 Status: Ordered lovastatin 20 mg oral tablet See Instructions, TAKE 1 TABLET BY MOUTH EVERY DAY WITH EVENING MEAL, # 90 tablet, 0 Refills, Maintenance, 09/28/23 7:53:00 EST, [facility] STORE 86005, 170.18, cm, 06/27/22 13:34:00 EDT, Height Start Date: 09/28/23 Status: Ordered NovoLOG FlexPen 100 units/mL injectable solution See Instructions, Subcutaneous Infusion 3 times a day before meals per Sliding Scale. No more than 24 units in a 24 hour period., # 3 mL, 11 Refills, Maintenance, 09/15/21 12:59:00 EST, [facility] Start Date: 09/15/21 Status: Ordered olanzapine 20 mg oral tablet 1 tablet, By Mouth, Daily, # 30 tablet, 0 Refills, Maintenance, 10/21/23 16:07:00 EST, [facility]/pharmacy#[id number], 170.18, cm, 06/27/22 13:34:00 EDT, Height Start Date: 10/21/23 Stop Date: 11/20/23 Status: Ordered Pen [place], 30 G x 8 mm BD Ultra [...] Refills, Maintenance, 11/12/23 9:03:00 EDT, [facility], 170.18, cm, 06/27/22 13:34:00 EDT, Height Start [...] Personnel Name: Marc ROSARIO, Yessy Aguirre Position: [facility] PCO Associate Professional Member Role: PCP Address: Address: [address] [place] [address] [place] [address]- Care Team Related Persons Name: JONI BUENO Address: home [address] [place] [id number]
--- OUTSIDE RECORDS SUMMARY | 2024-03-23 08:26 | XMS_ITS | Continuity of Care Document ---
Author Organization [facility] Address [address] [place] [address]- Care Team Providers Care Police Captain Name Role Phone Marc ROSARIO, Yessy Aguirre Primary Care Physici an Encounter [facility] Date(s): 12/23/23 - 01/22/24 [facility] [address] [place] [address]- Allergies, Adverse Reactions, Alerts No Known Allergies [...] [facility] [id number] 2Result Comment: [facility] [id number] 3Admin Note: vis 03/20/13 4Admin Note: Pt reports received while in hospital. [facility] [place]ations aero chamber aero chamber, with albuterol, By Mouth, Every 6 hours, PRN sob /wheeze, # 1 applicator, Refills 0, Tot. Refills 0, Maintenance, 11/08/10 11:23:49 Start Date: 11/08/10 Status: Ordered aspirin 81 mg oral delayed release tablet 81 mg, 1, tablet, By Mouth, Daily, # 90 tablet, Refills 1, Tot. Refills 1, Maintenance, 09/15/21 12:58:00 EST, Route to Pharmacy Electronically, [facility]/pharmacy #[id number], Partial fill upon patient request if the prescription is for a schedule II opioid drug. Start Date: 09/15/21 Stop Date: 03/14/22 Status: Ordered Aspirin Low Dose 81 mg oral delayed release tablet 1 tablet, By Mouth, Daily, # 90 tablet, 1 Refills, Maintenance, 02/05/23 6:25:00 EDT, [facility] STORE 91665, 170.18, cm, 06/27/22 13:34:00 EDT, Height Start Date: 02/05/23 Status: Ordered atenolol 50 mg oral tablet See Instructions, TAKE 1 TABLET BY MOUTH EVERY DAY, # 180 tablet, Refills 0, Tot. Refills 0, Maintenance, 02/12/23 12:24:00 EDT, Instructions Replace Required Details, Route to Pharmacy Electronically, [facility]/pharmacy #[id number], 170.18, cm, 06/27/22 13:34:0... Start Date: 02/12/23 Status: Ordered Colace sodium 100 mg oral capsule 100 mg, 1, capsule, By Mouth, 2 times a day, PRN, with plenty of water, # 60 capsule, Refills 1, Tot. Refills 1, Maintenance, for constipation, 10/28/18 11:12:39 EST, Route to Pharmacy Electronically, [id number], [facility]/pharmacy... Start Date: 10/28/18 Status: [...] 09/28/23 7:53:00 EST, Route to Pharmacy Electronically, [facility] STORE 15181, 170.18, cm, 06/27/22 13:34:00 EDT, Height Start Date: 09/28/23 Status: Ordered hydrALAZINE 25 mg oral tablet 1, tablet, By Mouth, 2 times a day, # 180 tablet, Refills 1, Tot. Refills 1, Maintenance, 04/16/23 10:06:00 EDT, Route to Pharmacy Electronically, [facility]/pharmacy #[id number], 170.18, cm, 06/27/22 13:34:00 EDT, Height Start Date: 04/16/23 Status: Ordered LORazepam 0.5 mg oral tablet See Instructions, TAKE 1 TABLET BY MOUTH TWICE A DAY NEEDED FOR ANXIETY, # 42 tablet, 0 Refills,Soft Stop, 10/24/22 20:13:00 EST, [facility]/pharmacy #[id number], 170.18, cm, 06/27/22 13:34:00 EDT, Height Start Date: 10/24/22 Status: Ordered LORazepam 0.5 mg oral tablet 1 tablet = 0.5 mg, By Mouth, 2 times a day, as needed for anxiety, # 60 tablet, 0 Refills, Soft Stop, 04/24/23 12:19:00 EDT, [facility]/pharmacy #[id number], 170.18, cm, 06/27/22 13:34:00 EDT, Height Start Date: 04/24/23 Stop Date: 05/24/23 Status: Ordered lovastatin 20 mg oral tablet See Instructions, TAKE 1 TABLET BY MOUTH EVERY DAY WITH EVENING MEAL, # 90 tablet, 0 Refills, Maintenance, 09/28/23 7:53:00 EST, [facility] STORE 70950, 170.18, cm, 06/27/22 13:34:00 EDT, Height Start Date: 09/28/23 Status: Ordered NovoLOG FlexPen 100 units/mL injectable solution See Instructions, Subcutaneous Infusion 3 times a day before meals per Sliding Scale. No more than 24 units in a 24 hour period., # 3 mL, 11 Refills, Maintenance, 09/15/21 12:59:00 EST, [facility] #[facility] Start Date: 09/15/21 Status: Ordered olanzapine 20 mg oral tablet 1 tablet, By Mouth, Daily, # 30 tablet, 0 Refills, Maintenance, 10/21/23 16:07:00 EST, [facility]/pharmacy#2071, 170.18, cm, 06/27/22 13:34:00 EDT, Height Start Date: 10/21/23 Stop Date: 11/20/23 Status: Ordered Pen [place], 30 G x 8 mm BD Ultra [...] Refills, Maintenance, 11/12/23 9:03:00 EDT, [facility], 170.18, cm, 06/27/22 13:34:00 EDT, Height Start [...] Personnel Name: Marc ROSARIO, Yessy Aguirre Position: [facility] PCO Associate Professional Member Role: PCP Address: Address: [address] [place] [address] [place] [address]- Care Team Related Persons Name: JONI BUENO Address: home [address] [place] [address]
--- OUTSIDE RECORDS SUMMARY | 2024-03-23 08:26 | XMS_ITS | Continuity of Care Document ---
Author Organization [facility] Address [address] [place] [address]- Care Team Providers Care Removable Prosthodontist Name Role Phone Marc ROSARIO, Yessy Aguirre Primary Care Physici an Encounter [facility] Date(s): 10/22/23 - 11/21/23 [facility] [address] [place] [address]- Allergies, Adverse Reactions, Alerts No Known Allergies [...] tetanus-diphtheria toxoids (Td) 12/22/04 Given 1Result Comment: [facility] [id number] 2Result Comment: [facility] [id number] 3Admin Note: vis 03/20/13 4Admin Note: Pt [...] tablet, 1 Refills, Maintenance, 02/05/23 6:25:00 EDT, [facility] STORE 96743, 170.18, cm, 06/27/22 13:34:00 EDT, Height Start Date: 02/05/23 Status: Ordered atenolol 50 mg oral tablet See Instructions, TAKE 1 TABLET BY MOUTH EVERY DAY, # 180 tablet, Refills 0, Tot. Refills 0, Maintenance, 02/12/23 12:24:00 EDT, Instructions Replace Required Details, Route to Pharmacy Electronically, [facility]/pharmacy #[id number], 170.18, cm, 06/27/22 13:34:0... Start Date: 02/12/23 Status: Ordered Colace sodium 100 mg oral capsule 100 mg, 1, capsule, By Mouth, 2 times a day, PRN, with plenty of water, # 60 capsule, Refills 1, Tot. Refills 1, Maintenance, for constipation, 10/28/18 11:12:39 EST, Route to Pharmacy Electronically, [id number], [facility]/pharmacy... Start Date: 10/28/18 [...] 09/28/23 7:53:00 EST, Route to Pharmacy Electronically, [facility] STORE 76255, 170.18, cm, 06/27/22 13:34:00 EDT, Height Start Date: 09/28/23 Status: Ordered hydrALAZINE 25 mg oral tablet 1, tablet, By Mouth, 2 times a day, # 180 tablet, Refills 1, Tot. Refills 1, Maintenance, 04/16/23 10:06:00 EDT, Route to Pharmacy Electronically, [facility]/pharmacy #[id number], 170.18, cm, 06/27/22 13:34:00 EDT, Height Start Date: 04/16/23 Status: Ordered LORazepam 0.5 mg oral tablet See Instructions, TAKE 1 TABLET BY MOUTH TWICE A DAY NEEDED FOR ANXIETY, # 42 tablet, 0 Refills,Soft Stop, 10/24/22 20:13:00 EST, [facility]/pharmacy #[id number], 170.18, cm, 06/27/22 13:34:00 EDT, Height Start Date: 10/24/22 Status: Ordered LORazepam 0.5 mg oral tablet 1 tablet = 0.5 mg, By Mouth, 2 times a day, as needed for anxiety, # 60 tablet, 0 Refills, Soft Stop, 04/24/23 12:19:00 EDT, [facility]/pharmacy #[id number], 170.18, cm, 06/27/22 13:34:00 EDT, Height Start Date: 04/24/23 Stop Date: 05/24/23 Status: Ordered lovastatin 20 mg oral tablet See Instructions, TAKE 1 TABLET BY MOUTH EVERY DAY WITH EVENING MEAL, # 90 tablet, 0 Refills, Maintenance, 09/28/23 7:53:00 EST, [facility] STORE 46273, 170.18, cm, 06/27/22 13:34:00 EDT, Height Start Date: 09/28/23 Status: Ordered NovoLOG FlexPen 100 units/mL injectable solution See Instructions, Subcutaneous Infusion 3 times a day before meals per Sliding Scale. No more than 24 units in a 24 hour period., # 3 mL, 11 Refills, Maintenance, 09/15/21 12:59:00 EST, [facility] #2 Start Date: 09/15/21 Status: Ordered olanzapine 20 mg oral tablet 1 tablet, By Mouth, Daily, # 30 tablet, 0 Refills, Maintenance, 10/21/23 16:07:00 EST, [facility]/pharmacy#2071, 170.18, cm, 06/27/22 13:34:00 EDT, Height Start Date: 10/21/23 Stop Date: 11/20/23 Status: Ordered Pen [place], 30 G x 8 mm BD Ultra [...] Refills, Maintenance, 11/12/23 9:03:00 EDT, [facility], 170.18, cm, 06/27/22 13:34:00 EDT, Height Start [...] Personnel Name: Marc ROSARIO, Yessy Aguirre Position: [facility] PCO Associate Professional Member Role: PCP Address: Address: [address] [place] [address] [place] [address]- Care Team Related Persons Name: JONI BUENO Address: home [address] [place] [address]
--- OUTSIDE RECORDS SUMMARY | 2024-03-23 08:26 | XMS_ITS | Continuity of Care Document ---
Author Organization [facility] [employer] [facility] Address [address] [place] [address]- Care Team Providers Care Underwriting Internship Name Role Phone Cm ROSARIO, Kayy Kulkarni Primary Care Physician Unav ailable Encounter [facility] Date(s): 05/20/23 - 06/19/23 [facility] [employer] [facility] [address] [place] [address]- Allergies, Adverse Reactions, Alerts No Known Allergies [...] tetanus-diphtheria toxoids (Td) 12/22/04 Given 1Result Comment: [facility] [id number] 2Result Comment: [facility] [id number] 3Admin Note: vis 03/20/13 4Admin Note: Pt [...] 12:58:00 EST, Route to Pharmacy Electronically, [facility]/pharmacy #[id number], Partial fill upon patient request if the prescription is for a schedule II opioid drug. Start Date: 09/15/21 Stop Date: 03/14/22 Status: Ordered Aspirin Low Dose 81 mg oral delayed release tablet 1 tablet, By Mouth, Daily, # 90 tablet, 1 Refills, Maintenance, 02/05/23 6:25:00 EDT, [facility] STORE 64813, 170.18, cm, 06/27/22 13:34:00 EDT, Height Start Date: 02/05/23 Status: Ordered atenolol 50 mg oral tablet See Instructions, TAKE 1 TABLET BY MOUTH EVERY DAY, # 180 tablet, Refills 0, Tot. Refills 0, Maintenance, 02/12/23 12:24:00 EDT, Instructions Replace Required Details, Route to Pharmacy Electronically, [facility]/pharmacy #[id number], 170.18, cm, 06/27/22 13:34:0... Start Date: 02/12/23 Status: Ordered Colace sodium 100 mg oral capsule 100 mg, 1, capsule, By Mouth, 2 times a day, PRN, with plenty of water, # 60 capsule, Refills 1, Tot. Refills 1, Maintenance, for constipation, 10/28/18 11:12:39 EST, Route to Pharmacy Electronically, [id number], [facility]/pharmacy... Start Date: 10/28/18 Status: Ordered FREESTYLE [...] 9:53:00 EDT, Route to Pharmacy Electronically, [facility] STORE 62237, 170.18, cm, 06/27/22 13:34:00 EDT, Height Start Date: 04/16/23 Status: Ordered hydrALAZINE 25 mg oral tablet 1, tablet, By Mouth, 2 times a day, # 180 tablet, Refills 1, Tot. Refills 1, Maintenance, 04/16/23 10:06:00 EDT, Route to Pharmacy Electronically, [facility]/pharmacy #1, 170.18, cm, 06/27/22 13:34:00 EDT, Height Start Date: 04/16/23 Status: Ordered LORazepam 0.5 mg oral tablet See Instructions, TAKE 1 TABLET BY MOUTH TWICE A DAY NEEDED FOR ANXIETY, # 42 tablet, 0 Refills,Soft Stop, 10/24/22 20:13:00 EST, [facility]/pharmacy #1, 170.18, cm, 06/27/22 13:34:00 EDT, Height Start Date: 10/24/22 Status: Ordered LORazepam 0.5 mg oral tablet 1 tablet = 0.5 mg, By Mouth, 2 times a day, as needed for anxiety, # 60 tablet, 0 Refills, Soft Stop, 04/24/23 12:19:00 EDT, [facility]/pharmacy #1, 170.18, cm, 06/27/22 13:34:00 EDT, Height Start Date: 04/24/23 Stop Date: 05/24/23 Status: Ordered lovastatin 20 mg oral tablet See Instructions, TAKE 1 TABLET BY MOUTH EVERY DAY WITH EVENING MEAL, # 90 tablet, 1 Refills, Maintenance, 02/05/23 6:25:00 EDT, [facility] STORE 46414, 170.18, cm, 06/27/22 13:34:00 EDT, Height Start Date: 02/05/23 Status: Ordered NovoLOG FlexPen 100 units/mL injectable solution See Instructions, Subcutaneous Infusion 3 times a day before meals per Sliding Scale. No more than 24 units in a 24 hour period., # 3 mL, 11 Refills, Maintenance, 09/15/21 12:59:00 EST, [facility] #2 Start Date: 09/15/21 Status: Ordered olanzapine 20 mg oral tablet 1 tablet, By Mouth, Daily, # 90 tablet, 1 Refills, Maintenance, 02/25/23 8:58:00 EDT, [facility]/pharmacy #2071, 170.18, cm, 06/27/22 13:34:00 EDT, Height Start Date: 02/25/23 Status: Ordered Pen [place], 30 G x 8 mm BD Ultra [...] capsule, 1 Refills, 04/16/23 10:07:00 EDT, [facility]/pharmacy #2071, 170.18, cm, 06/27/22 13:34:00 EDT, Height Start Date: 04/16/23 Status: Ordered venlafaxine 150 mg oral capsule, extended release 1 capsule, By Mouth, Daily, # 90 capsule, 0 Refills, Maintenance, 03/14/23 0:16:00 EDT, [facility], 170.18, cm, 06/27/22 13:34:00 EDT, Height Start [...] Team Related Persons Name: JONI BUENO Address: [address] [address]
--- OUTSIDE RECORDS SUMMARY | 2024-03-23 08:26 | XMS_ITS | Continuity of Care Document ---
Author Organization [facility] Address [address] [place] [address]- Care Team Providers Care Carpet Installer Name Role Phone Marc ROSARIO, Yessy Aguirre Primary Care Physici an Encounter [facility] Date(s): 09/25/23 - 10/25/23 [facility] [address] [place] [address]- Allergies, Adverse Reactions, Alerts No Known Allergies [...] tetanus-diphtheria toxoids (Td) 12/22/04 Given 1Result Comment: [facility] [id number] 2Result Comment: [facility] [id number] 3Admin Note: vis 03/20/13 4Admin Note: Pt [...] 09/15/21 12:58:00 EST, Route to Pharmacy Electronically, [facility]/pharmacy #[id number], Partial fill upon patient request if the prescription is for a schedule II opioid drug. Start Date: 09/15/21 Stop Date: 03/14/22 Status: Ordered Aspirin Low Dose 81 mg oral delayed release tablet 1 tablet, By Mouth, Daily, # 90 tablet, 1 Refills, Maintenance, 02/05/23 6:25:00 EDT, [facility] STORE 25626, 170.18, cm, 06/27/22 13:34:00 EDT, Height Start Date: 02/05/23 Status: Ordered atenolol 50 mg oral tablet See Instructions, TAKE 1 TABLET BY MOUTH EVERY DAY, # 180 tablet, Refills 0, Tot. Refills 0, Maintenance, 02/12/23 12:24:00 EDT, Instructions Replace Required Details, Route to Pharmacy Electronically, [facility]/pharmacy #2071, 170.18, cm, 06/27/22 13:34:0... Start Date: 02/12/23 Status: Ordered Colace sodium 100 mg oral capsule 100 mg, 1, capsule, By Mouth, 2 times a day, PRN, with plenty of water, # 60 capsule, Refills 1, Tot. Refills 1, Maintenance, for constipation, 10/28/18 11:12:39 EST, Route to Pharmacy Electronically, [id number], [facility]/pharmacy... Start Date: 10/28/18 Status: Ordered [...] 09/28/23 7:53:00 EST, Route to Pharmacy Electronically, [facility] STORE 87918, 170.18, cm, 06/27/22 13:34:00 EDT, Height Start Date: 09/28/23 Status: Ordered hydrALAZINE 25 mg oral tablet 1, tablet, By Mouth, 2 times a day, # 180 tablet, Refills 1, Tot. Refills 1, Maintenance, 04/16/23 10:06:00 EDT, Route to Pharmacy Electronically, [facility]/pharmacy #2071, 170.18, cm, 06/27/22 13:34:00 EDT, Height Start Date: 04/16/23 Status: Ordered LORazepam 0.5 mg oral tablet See Instructions, TAKE 1 TABLET BY MOUTH TWICE A DAY NEEDED FOR ANXIETY, # 42 tablet, 0 Refills,Soft Stop, 10/24/22 20:13:00 EST, [facility]/pharmacy #[id number], 170.18, cm, 06/27/22 13:34:00 EDT, Height Start Date: 10/24/22 Status: Ordered LORazepam 0.5 mg oral tablet 1 tablet = 0.5 mg, By Mouth, 2 times a day, as needed for anxiety, # 60 tablet, 0 Refills, Soft Stop, 04/24/23 12:19:00 EDT, [facility]/pharmacy #2071, 170.18, cm, 06/27/22 13:34:00 EDT, Height Start Date: 04/24/23 Stop Date: 05/24/23 Status: Ordered lovastatin 20 mg oral tablet See Instructions, TAKE 1 TABLET BY MOUTH EVERY DAY WITH EVENING MEAL, # 90 tablet, 0 Refills, Maintenance, 09/28/23 7:53:00 EST, [facility] STORE 90362, 170.18, cm, 06/27/22 13:34:00 EDT, Height Start Date: 09/28/23 Status: Ordered NovoLOG FlexPen 100 units/mL injectable solution See Instructions, Subcutaneous Infusion 3 times a day before meals per Sliding Scale. No more than 24 units in a 24 hour period., # 3 mL, 11 Refills, Maintenance, 09/15/21 12:59:00 EST, [facility] Start Date: 09/15/21 Status: Ordered olanzapine 20 mg oral tablet 1 tablet, By Mouth, Daily, # 30 tablet, 0 Refills, Maintenance, 10/21/23 16:07:00 EST[facility] 170[facility], cm, 06/27/22 13:34:00 EDT, Height Start Date: 10/21/23 Stop Date: 11/20/23 Status: Ordered Pen [place], 30 G x 8 mm BD Ultra [...] Refills, Maintenance, 03/14/23 0:16:00 EDT, [facility], 170.18, cm, 06/27/22 13:34:00 EDT, Height Start [...] Associate Professional Member Role: PCP Address: Address: [address] [place] [address] [place] [address]- Care Team Related Persons Name: JONI BUENO Address: home [address] [place] [address]
--- OUTSIDE RECORDS SUMMARY | 2024-03-23 08:26 | XMS_ITS | Continuity of Care Document ---
[facility] Organization [email or web address] Address [address] [place] [address]- Care Team Providers Care Imaging Assistant Name Role Phone Marc ROSARIO, Yessy Aguirre Primary Care Physici an Encounter [facility] Date(s): 12/23/23 - 01/22/24 [facility] [employer] Adult Medicine [address] [place] [address]- Allergies, Adverse Reactions, Alerts No Known Allergies [...] Given 1Result Comment: [facility] [id number] 2Result Comment: [facility] [id number] 3Admin Note: vis 03/20/13 4Admin Note: Pt [...] tablet, 1 Refills, Maintenance, 02/05/23 6:25:00 EDT, [facility] STORE [id number], 170.18, cm, 06/27/22 13:34:00 EDT, Height Start Date: 02/05/23 Status: Ordered atenolol 50 mg oral tablet See Instructions, TAKE 1 TABLET BY MOUTH EVERY DAY, # 180 tablet, Refills 0, Tot. Refills 0, Maintenance, 02/12/23 12:24:00 EDT, Instructions Replace Required Details, Route to Pharmacy Electronically, [facility]/pharmacy #[id number], 170.18, cm, 06/27/22 13:34:0... Start Date: 02/12/23 Status: Ordered Colace sodium 100 mg oral capsule 100 mg, 1, capsule, By Mouth, 2 times a day, PRN, with plenty of water, # 60 capsule, Refills 1, Tot. Refills 1, Maintenance, for constipation, 10/28/18 11:12:39 EST, Route to Pharmacy Electronically, [id number], [facility]/pharmacy... Start Date: 10/28/18 Status: Ordered FREESTYLE [...] 09/28/23 7:53:00 EST, Route to Pharmacy Electronically, [facility] STORE [id number], 170.18, cm, 06/27/22 13:34:00 EDT, Height Start Date: 09/28/23 Status: Ordered hydrALAZINE 25 mg oral tablet 1, tablet, By Mouth, 2 times a day, # 180 tablet, Refills 1, Tot. Refills 1, Maintenance, 04/16/23 10:06:00 EDT, Route to Pharmacy Electronically, [facility]/pharmacy #[id number], 170.18, cm, 06/27/22 13:34:00 EDT, Height Start Date: 04/16/23 Status: Ordered LORazepam 0.5 mg oral tablet See Instructions, TAKE 1 TABLET BY MOUTH TWICE A DAY NEEDED FOR ANXIETY, # 42 tablet, 0 Refills,Soft Stop, 10/24/22 20:13:00 EST, [facility]/pharmacy #[id number], 170.18, cm, 06/27/22 13:34:00 EDT, Height Start Date: 10/24/22 Status: Ordered LORazepam 0.5 mg oral tablet 1 tablet = 0.5 mg, By Mouth, 2 times a day, as needed for anxiety, # 60 tablet, 0 Refills, Soft Stop, 04/24/23 12:19:00 EDT, [facility]/pharmacy #[id number], 170.18, cm, 06/27/22 13:34:00 EDT, Height Start Date: 04/24/23 Stop Date: 05/24/23 Status: Ordered lovastatin 20 mg oral tablet See Instructions, TAKE 1 TABLET BY MOUTH EVERY DAY WITH EVENING MEAL, # 90 tablet, 0 Refills, Maintenance, 09/28/23 7:53:00 EST, [facility] STORE [id number], 170.18, cm, 06/27/22 13:34:00 EDT, Height Start Date: 09/28/23 Status: Ordered NovoLOG FlexPen 100 units/mL injectable solution See Instructions, Subcutaneous Infusion 3 times a day before meals per Sliding Scale. No more than 24 units in a 24 hour period., # 3 mL, 11 Refills, Maintenance, 09/15/21 12:59:00 EST, [facility] Start Date: 09/15/21 Status: Ordered olanzapine 20 mg oral tablet 1 tablet, By Mouth, Daily, # 30 tablet, 0 Refills, Maintenance, 10/21/23 16:07:00 EST, [facility]/pharmacy#[id number], 170.18, cm, 06/27/22 13:34:00 EDT, Height Start Date: 10/21/23 Stop Date: 11/20/23 Status: Ordered Pen Keyes, 30 G x 8 mm BD Ultra [...] Refills, Maintenance, 11/12/23 9:03:00 EDT, [id number], 170.18, cm, 06/27/22 13:34:00 EDT, Height Start [...] Personnel Name: Marc ROSARIO, Yessy Aguirre Position: [facility] PCO Associate Professional Member Role: PCP Address: Address: [address] [place] [address] [place] [address]- Care Team Related Persons Name: JONI BUENO Address: home [address] [place] [id number]
[2024-03-23 08:44] LABS: Alanine Aminotransferase 12 U/L (0-40); Alkaline Phosphatase 134 U/L (39-117); Anion Gap 17 (12-20); Aspartate Amino Transferase 15 U/L (5-37); Bilirubin Total 0.7 mg/dL (0.0-1.0); Blood Urea Nitrogen 18 mg/dL (9-16); Calcium 9.4 mg/dL (8.4-10.2); Carbon Dioxide 24 mmol/L (22-29); Chloride 104 mmol/L (96-108); Creatinine Clr Calc Pharmacy 39.5; Estimated Glomerular Filt Rate 52; Glucose Random 188 mg/dL (60-115); Potassium 4.2 mmol/L (3.3-5.1); Sodium 141 mmol/L (135-145); Total Protein 6.9 g/dL (6.5-8.0)
[2024-03-23 08:47] LABS: Bacteria Urine 4+ (None Seen); Hyaline Casts Urine 0-2 /LPF (0-2); Other Crystals Urine Present; Squamous Epithelial Cell Urine 0-2 /HPF (0-2); UACC Culture Trigger YES; WBC Urine >50 /HPF (0-5)
[2024-03-23 08:49] LABS: Troponin-I High Sensitivity 17.1 ng/L (<3.5-35.0)
[2024-03-23] MEDS: Permethrin 5 % Cream 60 GM TUBE 1 APPL TOPICAL (09:07)
[2024-03-23] MEDS: cefTRIAXone sodium 1 GM in 0.9 % Sodium Chloride 50 ML IV (09:54)
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
[2024-03-23] MEDS: Enoxaparin Sodium 40 MG/0.4 ML SYRINGE SUBCUT (14:16)
--- NOTE | 2024-03-23 14:33 | PC.NURSE ---
Transferred from main ed accompanied by . Provided with urinal and matthew haylee per patient request
[2024-03-23 15:15] LABS: Lactic Acid 1.5 mmol/L (0.5-2.0)
--- NOTE | 2024-03-23 16:45 | PHA.MEDREC ---
Addendum entered by Cande Pacheco 03/23/24 16:53: Called and spoke to [facility] pharmacy on file and they state he has not filled since September-October and Insulin has not been filled in over 2 years since they have no claims when they go back in their system. Original Note: Pharmacy Consult ? Medication Reconciliation Pharmacy has completed the medication reconciliation. Confirmed medications with patients . She confirmed them but states he is in-between finding a new Dr. so he has not taken any of his medications according to her in about a week.
[2024-03-23 17:01] LABS: Glucose, Whole Blood 226 mg/dL (60-115)
[2024-03-23] MEDS: Insulin Lispro 100 UNIT/ML 3 ML VIAL SUBCUT ×2 (17:14→20:37)
[2024-03-23] MEDS: 0.9 % Sodium Chloride Flush 3 ML SYRINGE IVFLUSH ×2 (17:14→20:37)
[2024-03-23 18:03] LABS: Glucose, Whole Blood 306 mg/dL (60-115)
[2024-03-23 20:29] LABS: Glucose, Whole Blood 216 mg/dL (60-115)
[2024-03-23] MEDS: Melatonin 3 MG TABLET 6 MG PO (21:26)
[2024-03-23] MEDS: hydrOXYzine HCL 10 MG TABLET PO (21:26)
[2024-03-23] MEDS: Pravastatin Sodium 20 MG TABLET PO (21:26)
[2024-03-24 03:33] VITALS: BP 153/87; PULSE 95; RESP 16; TEMP 36.1; O2SAT 92
[2024-03-24 06:49] LABS: MANUAL DIFF FLAG NO
[2024-03-24 07:16] LABS: Anion Gap 14 (12-20); Blood Urea Nitrogen 24 mg/dL (9-16); Calcium 8.6 mg/dL (8.4-10.2); Carbon Dioxide 25 mmol/L (22-29); Chloride 105 mmol/L (96-108); Creatinine Clr Calc Pharmacy 49.1; Estimated Glomerular Filt Rate > 60; Glucose Random 142 mg/dL (60-115); Potassium 3.8 mmol/L (3.3-5.1); Sodium 140 mmol/L (135-145)
[2024-03-24 07:23] LABS: Basophils Absolute Auto 0.1 X10*3/uL (0.0-0.2); Basophils Percent Auto 0.8 % (0-2); Eosinophils Absolute Auto 0.1 X10*3/uL (0.0-0.4); Eosinophils Percent Auto 1.2 % (0-4); Hematocrit 46.4 % (42.0-52.0); Hemoglobin 15.7 g/dl (14.0-18.0); Imm Gran Abs Auto 0.07 X10*3/uL (0.00-0.03); Imm Gran Pct Auto 0.6 % (0.0-0.4); Lymphocytes Percent Auto 17.3 % (20-40); Mean Corpuscular HGB Conc 33.8 g/dl (31.0-36.0); Mean Corpuscular Hemoglobin 29.6 pg (27.0-33.0); Mean Corpuscular Volume 87.5 fL (80.0-98.0); Mean Platelet Volume 9.5 fL (9.4-12.4); Monocytes Percent Auto 8.3 % (2-11); Neutrophils Absolute Auto 8.5 x10*3/uL (2.0-8.3); Neutrophils Percent Auto 71.8 % (45-73); Platelet Count 185 X10*3/uL (160-400); White Blood Count 11.8 X10*3/uL (4.8-10.8)
[2024-03-24 07:25] VITALS: BP 158/94; PULSE 90; RESP 16; TEMP 36.7; O2SAT 93
[2024-03-24 07:25] LABS: Glucose, Whole Blood 133 mg/dL (60-115)
[2024-03-24] MEDS: Venlafaxine HCl ER 150 MG CAP.ER.24H PO (08:18)
[2024-03-24] MEDS: hydrALAZINE HCl 25 MG TABLET PO ×2 (08:19→19:54)
[2024-03-24] MEDS: 0.9 % Sodium Chloride Flush 3 ML SYRINGE IVFLUSH ×2 (08:19→16:53)
[2024-03-24] MEDS: Aspirin Enteric Coated 81 MG TABLET.DR PO (08:19)
[2024-03-24] MEDS: Venlafaxine HCl ER 75 MG CAP.ER.24H PO (08:19)
[2024-03-24] MEDS: atenoloL 50 MG TABLET PO (08:19)
[2024-03-24] MEDS: cefTRIAXone sodium 1 GM in 0.9 % Sodium Chloride 50 ML IV (09:44)
[2024-03-24 10:03] LABS: Glucose, Whole Blood 248 mg/dL (60-115)
[2024-03-24 11:15] LABS: Glucose, Whole Blood 289 mg/dL (60-115)
--- NOTE | 2024-03-24 11:27 | MHC.CM.PN ---
IMM DELIVERED PT LIVES WITH . PT USES [facility] FOR MOBILITY. +HCP ON FILE. NO PCP, [facility] PROVIDED. DP: HOME WHEN MEDICALLY READY FOR DC IS THE GOAL. [facility] WILL TRANSPORT HOME. CM WILL CONTINUE TO FOLLOW FOR ANY CHANGE TO DC PLAN/NEEDS.
[2024-03-24] MEDS: Insulin Lispro 100 UNIT/ML 3 ML VIAL SUBCUT ×2 (11:53→20:22)
--- NOTE | 2024-03-24 12:02 | P.PNIM_ITS ---
Subjective Subjective Date of Service: 03/24/24 Interval History: Being followed for acute UTI with sepsis and acute metabolic encephalopathy. Patient awake alert this morning complaining of feeling weak and lightheaded, tolerating diet denies nausea, no vomiting, no abdominal pain or diarrhea, no fevers, no chills denies urinary symptoms of urgency or frequency. Complaining of mild generalized itch but improved since admission. Review of Systems All other system reviewed and are negative Physical Exam 2 Vital Signs: Vital Signs: Last Vital Signs Temp 98.0 F 03/24/24 07:25 Pulse 90 03/24/24 07:25 Resp 16 03/24/24 07:25 BP 158/94 H 03/24/24 07:25 Pulse Ox 93 03/24/24 07:25 O2 Del Method Room Air 03/24/24 07:25 BMI result Body Mass Index 20.1 Const: Other: General sitting comfortably in no acute distress. Anicteric sclera Neck no JVD. CVS regular rate rhythm, Respiratory lungs clear to auscultation, no respiratory distress, no wheeze, no rhonchi. Gastrointestinal abdomen soft, non tender, bowel sounds audible Extremities no edema. Neuro non focal, speech clear. Skin see picture from admission note, Psych appropriate affect Objective Data Active Medications Acetaminophen (Acetaminophen 325 Mg Tablet) 650 mg PO Q6H PRN PRN Reason: Pain, Mild (Pain Scale 1-3), fever or headache Aspirin (Aspirin Enteric Coated 81 Mg Tablet.) 81 mg PO DAILY [facility] Last Admin: 03/24/24 08:19 Dose: 81 mg Documented By: JESSICA Atenolol (Atenolol 50 Mg Tablet) 50 mg PO DAILY [facility]; Protocol Last Admin: 03/24/24 08:19 Dose: 50 mg Documented By: JESSICA Calcium Carbonate (Calcium Carbonate 750 Mg Tab.Chew) 750 mg PO Q4H PRN PRN Reason: Heartburn Enoxaparin Sodium (Enoxaparin Sodium 40 Mg/0.4 Ml Syringe) 40 mg SUBCUT Q24H [facility] Last Admin: 03/23/24 14:16 Dose: 40 mg Documented By: FRIEDA Glucose (Glucose Gel 15 Gm Gel..Gram.) 15 gm PO Q15M PRN; Protocol PRN Reason: per Hypoglycemia Standing Ord. Hydralazine HCl (Hydralazine Hcl 25 Mg Tablet) 25 mg PO BID [facility]; Protocol Last Admin: 03/24/24 08:19 Dose: 25 mg Documented By: JESSICA Hydroxyzine HCl (Hydroxyzine Hcl 10 Mg Tablet) 10 mg PO Q8H PRN PRN Reason: Itching Last Admin: 03/23/24 21:26 Dose: 10 mg Documented By: CHRISTOPHER Ceftriaxone Sodium 1 gm/ (Sodium Chloride) 50 mls @ 100 mls/hr IV Q24H [facility] Last Infusion: 03/24/24 10:19 Dose: Infused Documented By: JESSICA Dextrose (D10) 250 mls @ 750 mls/hr IV Q15M PRN; Protocol PRN Reason: per Hypoglycemia Standing Ord. Insulin Human Lispro (Insulin Lispro 100 Unit/Ml 3 Ml Vial) 0 unit SUBCUT QIDACHS [facility]; Protocol Last Admin: 03/24/24 11:53 Dose: 6 unit Documented By: JESSICA Lorazepam (Lorazepam 0.5 Mg Tablet) 0.5 mg PO BID PRN PRN Reason: anxiety Magnesium Hydroxide (Milk Of Magnesia 30 Ml Oral.Susp) 30 ml PO DAILY PRN PRN Reason: Constipation Melatonin (Melatonin 3 Mg Tablet) 6 mg PO BEDTIME PRN PRN Reason: Insomnia Last Admin: 03/23/24 21:26 Dose: 6 mg Documented By: CHRISTOPHER Olanzapine (Olanzapine 10 Mg Tablet) 20 mg PO BEDTIME [facility] Pravastatin Sodium (Pravastatin Sodium 20 Mg Tablet) 20 mg PO BEDTIME [facility] Last Admin: 03/23/24 21:26 Dose: 20 mg Documented By: CHRISTOPHER Sodium Chloride (0.9 % Sodium Chloride Flush 3 Ml Syringe) 3 ml IVFLUSH QSHIFT [facility] Last Admin: 03/24/24 08:19 Dose: 3 ml Documented By: JESSICA Venlafaxine HCl (Venlafaxine Hcl Er 75 Mg Cap.Er.24h) 75 mg PO DAILY [facility] Last Admin: 03/24/24 08:19 Dose: 75 mg Documented By: JESSICA Venlafaxine HCl (Venlafaxine Hcl Er 150 Mg Cap.Er.24h) 150 mg PO DAILY [facility] Last Admin: 03/24/24 08:18 Dose: 150 mg Documented By: JESSICA Labs 03/24/24 05:56 03/24/24 05:56 Labs: Laboratory Results - last 24 hr 03/23/24 03/23/24 03/23/24 14:51 16:57 17:58 MCV MCH MCHC RDW Plt Count MPV Immature Gran % (Auto) Neut % (Auto) Lymph % (Auto) [place] % (Auto) Eos % (Auto) Baso % (Auto) Lymph # (Auto) [place] # (Auto) Eos # (Auto) Baso # (Auto) Abs Immat Gran (auto) Absolute Neuts (auto) Absolute Nucleated RBC Nucleated RBC % (auto) Anion Gap Estim Creat Clear Calc Estimated GFR POC Glucose 226 H 306 H Random Glucose Lactic Acid 1.5 Calcium 03/23/24 03/24/24 03/24/24 20:21 05:56 07:22 MCV 87.5 MCH 29.6 MCHC 33.8 RDW 16.0 Plt Count 185 MPV 9.5 Immature Gran % (Auto) 0.6 H Neut % (Auto) 71.8 Lymph % (Auto) 17.3 L [place] % (Auto) 8.3 Eos % (Auto) 1.2 Baso % (Auto) 0.8 Lymph # (Auto) 2.0 [place] # (Auto) 1.0 Eos # (Auto) 0.1 Baso # (Auto) 0.1 Abs Immat Gran (auto) 0.07 H Absolute Neuts (auto) 8.5 H Absolute Nucleated RBC 0.000 Nucleated RBC % (auto) 0.0 Anion Gap 14 Estim Creat Clear Calc 49.1 Estimated GFR > 60 POC Glucose 216 H 133 H Random Glucose 142 H Lactic Acid Calcium 8.6 D 03/24/24 03/24/24 09:57 11:01 MCV MCH MCHC RDW Plt Count MPV Immature Gran % (Auto) Neut % (Auto) Lymph % (Auto) [place] % (Auto) Eos % (Auto) Baso % (Auto) Lymph # (Auto) [place] # (Auto) Eos # (Auto) Baso # (Auto) Abs Immat Gran (auto) Absolute Neuts (auto) Absolute Nucleated RBC Nucleated RBC % (auto) Anion Gap Estim Creat Clear Calc Estimated GFR POC Glucose 248 H 289 H Random Glucose Lactic Acid Calcium Microbiology Microbiology Results: Microbiology 03/23/24 Unknown Urine Culture - Preliminary Urine clean catch - Clean Catch Midstream Staphylococcus species Assessment and Plan (1) Acute metabolic encephalopathy: Status: Acute (2) Rash: Status: Acute (3) Acute UTI: Status: Acute Plan 68-year-old male with history of insulin-dependent type 2 diabetes, CKD stage 3, coronary artery disease, congestive heart failure, hypertension, unspecified dementia with mood disturbance admitted for further management of acute UTI with sepsis and acute metabolic encephalopathy #acute UTI with sepsis and acute metabolic encephalopathy -WBC trending down , persistent mild tachycardia, normal lactic acid, urine and blood cultures are pending . -encephalopathy resolved -continue IV ceftriaxone (initiated 03/23) -follow CBC, and cultures #Acute rash -concerning for scabies, no family member with similar lesions. -given permethrin cream in ed 03/23 -will add calamine lotion, continue hydroxyzine 10 mg p.r.n. for itch -continue contact precautions # [id number] type 2 diabetes -elevated blood sugars, resume glipizide 5 mg daily,(home dose 5 mg b.i.d.) continue insulin sliding scale, monitor POC glucose, diabetic diet # CAD/HLD -no cp ,continue beta-adriana, statin, aspirin # hypertension -few high blood pressure readings, continue atenolol, hydralazine and follow BP # heart failure preserved ejection fraction -no exacerbation, not on diuretics # unspecified dementia with mood disturbance -continue venlafaxine, lorazepam, Zyprexa DVT prophylaxis-Lovenox Full code Patient requires continued inpatient hospitalization for management of acute UTI with sepsis which will require IV antibiotics and close monitoring of hemodynamics as well as monitoring of mentation. Quality Stroke Does the patient have a stroke diagnosis?: No VTE Prior VTE?: No VTE Risk Level:: Medical - moderate - high VTE Device Contraindication: Treatment Not Indicated VTE Drug Contraindication: N/A - Med Ordered
[2024-03-24] MEDS: Enoxaparin Sodium 40 MG/0.4 ML SYRINGE SUBCUT (13:10)
[2024-03-24] MEDS: glipiZIDE 5 MG TABLET PO (13:10)
[2024-03-24] MEDS: hydrOXYzine HCL 10 MG TABLET PO (13:44)
--- NOTE | 2024-03-24 14:28 | HO.WOUND ---
Wound Consult: Initial 68yr old?Male admitted to [facility] [place] on 03/23/24 - See progress notes and H&P for detailed history.? Wound consult placed for Rash to extremities.? Patient agreeable to assessment and photo documentation.? Patient and reports unclear etiology of rash but thatit is very itchy - is not noted for rash. The rash is absent from his back, head and trunk at this time. There are clear excoriation blair from the patients scratching. These appear as stable scabs. Per provider note concern for Scabies and treatments as been orderd to include cream, calamine lotion and oral Hydroxyine. The PRN calamine and Hydroxine have not yet been given - advised direct care nurse to apply and give to aid patient in relief of itching and if unsuccessful to reach back out to providers. No new topical interventions needed at this time. Please resonsult inpt wound care nurse if lesions open and need topical treatment. Bilateral upper thigh Bilateral Lower Legs Right Arm Left Arm Re-consult wound care Nurse for wound deterioration or wound changes.
[2024-03-24 16:00] VITALS: BP 128/77; PULSE 68; RESP 18; TEMP 36.2; O2SAT 91
[2024-03-24 16:24] LABS: Glucose, Whole Blood 117 mg/dL (60-115)
[2024-03-24] MEDS: ondansetron HCL 4 MG/2 ML VIAL IVPUSH (16:53)
--- NOTE | 2024-03-24 18:00 | PC.NURSE ---
Pt became nauseous and vomited around 1634, tiger text to Dr. Davis, prn IV Zofran ordered and administered at 1652 with good effect.
[2024-03-24 19:17] VITALS: BP 104/68; PULSE 80; RESP 18; TEMP 36.7
[2024-03-24] MEDS: OLANZapine 10 MG TABLET 20 MG PO (19:54)
[2024-03-24] MEDS: Melatonin 3 MG TABLET 6 MG PO (19:54)
[2024-03-24] MEDS: Pravastatin Sodium 20 MG TABLET PO (19:54)
[2024-03-24] MEDS: LORazepam 0.5 MG TABLET PO (19:54)
[2024-03-24 20:13] LABS: Glucose, Whole Blood 158 mg/dL (60-115)
[2024-03-25 03:25] VITALS: BP 100/51; PULSE 62; RESP 16; TEMP 36.2; O2SAT 93
[2024-03-25 07:45] VITALS: BP 108/61; PULSE 66; RESP 17; TEMP 36.2; O2SAT 93
[2024-03-25 08:02] LABS: Glucose, Whole Blood 104 mg/dL (60-115)
[2024-03-25] MEDS: 0.9 % Sodium Chloride Flush 3 ML SYRINGE IVFLUSH ×3 (08:26→20:59)
[2024-03-25] MEDS: atenoloL 50 MG TABLET PO (08:26)
[2024-03-25] MEDS: cefTRIAXone sodium 1 GM in 0.9 % Sodium Chloride 50 ML IV (08:26)
[2024-03-25] MEDS: Venlafaxine HCl ER 75 MG CAP.ER.24H PO (08:26)
[2024-03-25] MEDS: hydrALAZINE HCl 25 MG TABLET PO ×2 (08:26→20:59)
[2024-03-25] MEDS: Venlafaxine HCl ER 150 MG CAP.ER.24H PO (08:26)
[2024-03-25] MEDS: Aspirin Enteric Coated 81 MG TABLET.DR PO (08:26)
[2024-03-25] MEDS: glipiZIDE 5 MG TABLET PO (08:26)
--- NOTE | 2024-03-25 11:16 | P.PNIM_ITS ---
Subjective Subjective Date of Service: 03/25/24 Interval History: appears back to baseline Physical Exam 2 Vital Signs: Vital Signs: Last Vital Signs Temp 97.2 F 03/25/24 07:45 Pulse 66 03/25/24 07:45 Resp 17 03/25/24 07:45 BP 108/61 03/25/24 07:45 Pulse Ox 93 03/25/24 07:45 O2 Del Method Room Air 03/25/24 07:45 O2 Flow Rate 1.5 03/25/24 03:25 BMI result Body Mass Index 20.1 Const: Other: General sitting comfortably in no acute distress. Anicteric sclera Neck no JVD. CVS regular rate rhythm, Respiratory lungs clear to auscultation, no respiratory distress, no wheeze, no rhonchi. Gastrointestinal abdomen soft, non tender, bowel sounds audible Extremities no edema. Neuro non focal, speech clear. Skin see picture from admission note, Psych appropriate affect alert to person place and time, poor insight Objective Data Active Medications Acetaminophen (Acetaminophen 325 Mg Tablet) 650 mg PO Q6H PRN PRN Reason: Pain, Mild (Pain Scale 1-3), fever or headache Aspirin (Aspirin Enteric Coated 81 Mg Tablet.) 81 mg PO DAILY [facility] Last Admin: 03/25/24 08:26 Dose: 81 mg Documented By: PAYTON Atenolol (Atenolol 50 Mg Tablet) 50 mg PO DAILY [facility]; Protocol Last Admin: 03/25/24 08:26 Dose: 50 mg Documented By: PAYTON Calamine (Calamine/Zinc Oxide Lotion 177 Ml Bottle) 1 appl TOPICAL QID PRN; Protocol PRN Reason: rash Calcium Carbonate (Calcium Carbonate 750 Mg Tab.Chew) 750 mg PO Q4H PRN PRN Reason: Heartburn Enoxaparin Sodium (Enoxaparin Sodium 40 Mg/0.4 Ml Syringe) 40 mg SUBCUT Q24H [facility] Last Admin: 03/24/24 13:10 Dose: 40 mg Documented By: JESSICA Glipizide (Glipizide 5 Mg Tablet) 5 mg PO DAILY [facility] Last Admin: 03/25/24 08:26 Dose: 5 mg Documented By: PAYTON Glucose (Glucose Gel 15 Gm Gel..Gram.) 15 gm PO Q15M PRN; Protocol PRN Reason: per Hypoglycemia Standing Ord. Hydralazine HCl (Hydralazine Hcl 25 Mg Tablet) 25 mg PO BID [facility]; Protocol Last Admin: 03/25/24 08:26 Dose: 25 mg Documented By: PAYTON Hydroxyzine HCl (Hydroxyzine Hcl 10 Mg Tablet) 10 mg PO Q8H PRN PRN Reason: Itching Last Admin: 03/24/24 13:44 Dose: 10 mg Documented By: JESSICA Ceftriaxone Sodium 1 gm/ (Sodium Chloride) 50 mls @ 100 mls/hr IV Q24H [facility] Last Infusion: 03/25/24 09:02 Dose: Infused Documented By: PAYTON Dextrose (D10) 250 mls @ 750 mls/hr IV Q15M PRN; Protocol PRN Reason: per Hypoglycemia Standing Ord. Insulin Human Lispro (Insulin Lispro 100 Unit/Ml 3 Ml Vial) 0 unit SUBCUT QIDACHS [facility]; Protocol Last Admin: 03/25/24 08:05 Dose: Not Given Documented By: PAYTON Non-Admin Reason: No Insulin Coverage Lorazepam (Lorazepam 0.5 Mg Tablet) 0.5 mg PO BID PRN PRN Reason: anxiety Last Admin: 03/24/24 19:54 Dose: 0.5 mg Documented By: STEPAN Magnesium Hydroxide (Milk Of Magnesia 30 Ml Oral.Susp) 30 ml PO DAILY PRN PRN Reason: Constipation Melatonin (Melatonin 3 Mg Tablet) 6 mg PO BEDTIME PRN PRN Reason: Insomnia Last Admin: 03/24/24 19:54 Dose: 6 mg Documented By: STEPAN Olanzapine (Olanzapine 10 Mg Tablet) 20 mg PO BEDTIME [facility] Last Admin: 03/24/24 19:54 Dose: 20 mg Documented By: STEPAN Ondansetron HCl (Ondansetron Hcl 4 Mg/2 Ml Vial) 4 mg IVPUSH Q6H PRN PRN Reason: Nausea and Vomiting Last Admin: 03/24/24 16:53 Dose: 4 mg Documented By: SAMMI Pravastatin Sodium (Pravastatin Sodium 20 Mg Tablet) 20 mg PO BEDTIME [facility] Last Admin: 03/24/24 19:54 Dose: 20 mg Documented By: STEPAN Sodium Chloride (0.9 % Sodium Chloride Flush 3 Ml Syringe) [facility] Last Admin: 03/25/24 08:26 Dose: 3 ml Documented By: PAYTON Venlafaxine HCl (Venlafaxine Hcl Er 75 Mg Cap.Er.24h) 75 mg PO DAILY [facility] Last Admin: 03/25/24 08:26 Dose: 75 mg Documented By: PAYTON Venlafaxine HCl (Venlafaxine Hcl Er 150 Mg Cap.Er.24h) 150 mg PO DAILY [facility] Last Admin: 03/25/24 08:26 Dose: 150 mg Documented By: PAYTON Labs 03/24/24 05:56 03/24/24 05:56 Labs: Laboratory Results - last 24 hr 03/24/24 03/24/24 03/25/24 16:08 20:05 07:54 POC Glucose 117 H 158 H 104 Microbiology Microbiology Results: Microbiology 03/23/24 Unknown Urine Culture - Final Urine clean catch - Clean Catch Midstream Staphylococcus epidermidis 03/23/24 14:53 Blood Culture - Preliminary Blood - Venous No growth after 24 hours. 03/23/24 14:53 Blood Culture - Preliminary Blood - Venous No growth after 24 hours. Assessment and Plan (1) Acute metabolic encephalopathy: Status: Acute (2) Rash: Status: Acute (3) Acute UTI: Status: Acute Plan 68M PMH insulin-dependent type 2 diabetes, CKD stage 3, coronary artery disease, chronic diastolic and right sided congestive heart failure, hypertension, unspecified dementia with mood disturbance presented with ams acute UTI with sepsis and acute metabolic encephalopathy -encephalopathy resolved continue IV ceftriaxone (initiated 03/23) cutlure growing staph epi, doubt causative agent Acute rash -concerning for scabies, no family member with similar lesions. -given permethrin cream in ed 03/23 added calamine lotion, continue hydroxyzine 10 mg p.r.n. for itch -continue contact precautions [id number] type 2 diabetes -elevated blood sugars, resume glipizide 5 mg daily,(home dose 5 mg b.i.d.) continue insulin sliding scale, monitor POC glucose, diabetic diet CAD/HLD -no cp ,continue beta-adriana, statin, aspirin hypertension continue atenolol, hydralazine and follow BP heart failure preserved ejection fraction, reduced RV function -no exacerbation, not on diuretics unspecified dementia with mood disturbance continue venlafaxine, lorazepam, Zyprexa DVT prophylaxis-Lovenox Full code reason for continued hospitalization: monitoring for response to abx Quality Stroke Does the patient have a stroke diagnosis?: No VTE Prior VTE?: No VTE Risk Level:: Medical - moderate - high VTE Device Contraindication: Treatment Not Indicated VTE Drug Contraindication: N/A - Med Ordered
[2024-03-25 11:25] LABS: Glucose, Whole Blood 185 mg/dL (60-115)
[2024-03-25 11:32] VITALS: BP 108/61; PULSE 66; O2SAT 93
[2024-03-25] MEDS: Enoxaparin Sodium 40 MG/0.4 ML SYRINGE SUBCUT (12:15)
[2024-03-25] MEDS: Insulin Lispro 100 UNIT/ML 3 ML VIAL SUBCUT ×2 (12:15→16:29)
--- NOTE | 2024-03-25 14:02 | MHC.CM.PN ---
Per MD rounds PT rec STR. The preference for STR is [facility]. A referral has been sent. A bed has been offered. MD anticipates discharge tomorrow. DP [facility] via BLS
[2024-03-25 15:05] VITALS: BP 111/63; PULSE 58; RESP 16; TEMP 36.2; O2SAT 98
[2024-03-25 16:19] LABS: Glucose, Whole Blood 162 mg/dL (60-115)
[2024-03-25 20:00] VITALS: BP 106/66; PULSE 60; RESP 14; TEMP 36.2; O2SAT 94
[2024-03-25 20:17] LABS: Glucose, Whole Blood 93 mg/dL (60-115)
[2024-03-25] MEDS: OLANZapine 10 MG TABLET 20 MG PO (20:58)
[2024-03-25] MEDS: Pravastatin Sodium 20 MG TABLET PO (20:59)
[2024-03-25] MEDS: Melatonin 3 MG TABLET 6 MG PO (20:59)
[2024-03-26 03:34] VITALS: BP 107/67; PULSE 77; RESP 18; TEMP 36.6; O2SAT 93
[2024-03-26 07:36] VITALS: BP 125/67; PULSE 73; RESP 20; TEMP 36.4; O2SAT 95
[2024-03-26 07:47] LABS: Glucose, Whole Blood 131 mg/dL (60-115)
[2024-03-26] MEDS: hydrALAZINE HCl 25 MG TABLET PO (08:04)
[2024-03-26] MEDS: glipiZIDE 5 MG TABLET PO (08:05)
[2024-03-26] MEDS: atenoloL 50 MG TABLET PO (08:05)
[2024-03-26] MEDS: Venlafaxine HCl ER 150 MG CAP.ER.24H PO (08:05)
[2024-03-26] MEDS: 0.9 % Sodium Chloride Flush 3 ML SYRINGE IVFLUSH (08:05)
[2024-03-26] MEDS: Aspirin Enteric Coated 81 MG TABLET.DR PO (08:05)
[2024-03-26] MEDS: Venlafaxine HCl ER 75 MG CAP.ER.24H PO (08:05)
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
[2024-03-26] MEDS: cefTRIAXone sodium 1 GM in 0.9 % Sodium Chloride 50 ML IV (10:21)
--- NOTE | 2024-03-26 11:00 | MHC.CM.PN ---
PT CLEARED TO DC TO STR TODAY CM MET WITH PT AND AT BEDSIDE THEY ARE AWARE [facility] [place] IS OFFERING AND THEY HAVE ACCEPTED THE BED TRANSPORT BOOKED FOR 1300 HOURS WITH [facility]
[2024-03-26 11:33] LABS: Glucose, Whole Blood 192 mg/dL (60-115)
[2024-03-26] MEDS: Insulin Lispro 100 UNIT/ML 3 ML VIAL SUBCUT (12:17)
== END 2024-03-26 13:00 | disposition skilled nursing facility (03) | DRG 871 ==
LOC: HO.ED 11:42 → HO.EDOVER 13:57 → HO.S3 17:04
PROVIDERS: Hospitalist; Admitting Provider Physician Assistant; Emergency Provider Emergency Medicine; Visit Provider Internal Medicine
DX: A41.9 Sepsis, unspecified organism (principal); G93.41 Metabolic encephalopathy; N39.0 Urinary tract infection, site not specified; I13.0 Hypertensive heart and chronic kidney disease with heart failure and stage 1 through stage 4 chronic kidney disease, or unspecified chronic kidney disease; I50.32 Chronic diastolic (congestive) heart failure; F03.918 Unspecified dementia, unspecified severity, with other behavioral disturbance; R64 Cachexia; I25.10 Atherosclerotic heart disease of native coronary artery without angina pectoris; N18.30 Chronic kidney disease, stage 3 unspecified; B86 Scabies; E11.22 Type 2 diabetes mellitus with diabetic chronic kidney disease; E11.65 Type 2 diabetes mellitus with hyperglycemia; Z68.20 Body mass index [BMI] 20.0-20.9, adult; Z79.4 Long term (current) use of insulin; Z79.82 Long term (current) use of aspirin; Z79.84 Long term (current) use of oral hypoglycemic drugs; Z79.899 Other long term (current) drug therapy
CPT/HCPCS: 36415; 71045; 80048; 80053; 81001; 82947; 83605; 84484; 85025; 87040; 87086; 87088; 87186; 93005; 97162; 99285; J0696; J1650; J2405

== ENCOUNTER → 2024-03-23 07:52 | Outpatient (BNV) | payer MEDICARE, OTHER, SELFPAY | PROVIDERS: Admitting Provider Physician Assistant; Emergency Provider Emergency Medicine; Visit Provider Internal Medicine Cardiovascular Disease | DX: R94.31 Abnormal electrocardiogram [ECG] [EKG] (principal) | CPT/HCPCS: 93010 ==

== ENCOUNTER → 2024-03-23 13:38 | Outpatient (BNV) | payer MEDICARE, OTHER, SELFPAY | PROVIDERS: Admitting Provider Physician Assistant; Emergency Provider Emergency Medicine; Visit Provider Physician Assistant | DX: G93.41 Metabolic encephalopathy (principal); R21 Rash and other nonspecific skin eruption; N39.0 Urinary tract infection, site not specified | CPT/HCPCS: 99223; 99232; 99239 ==

== ENCOUNTER 2024-04-12 04:28 | Emergency (ER) | payer MEDICARE, OTHER, SELFPAY ==
--- NOTE | ~2024-04-12 | XR_ITS ---
EXAMINATION: XR CHEST CLINICAL INFORMATION: Cough COMPARISON: 03/23/2024 TECHNIQUE: Frontal view of the chest was obtained. FINDINGS: Lungs are well expanded and bronchial farias appear be chronically thickened in this patient with chronic emphysematous lung disease. No consolidation or pleural effusion. Cardiomediastinal silhouette has normal size and contour. There is atherosclerotic calcification of the aorta. No acute osseous abnormality. XR/XR chest 1V IMPRESSION: * No radiographic evidence of pneumonia. * These centrilobular and paraseptal emphysematous lung disease is better depicted on the chest CT from 03/15/2023. There is chronic thickening of bronchial farias. Correlate for history of chronic obstructive pulmonary disease.
--- NOTE | ~2024-04-12 | CT_ITS ---
EXAMINATION: CT ABDOMEN AND PELVIS WITHOUT CONTRAST CLINICAL INFORMATION: Left lower quadrant pain. COMPARISON: 06/29/2022 TECHNIQUE: Multidetector volumetric imaging was performed from the superior aspect of the liver through the pubic symphysis. Sagittal and coronal reformatted images were obtained on the technologist's workstation. This CT examination was performed using dose optimization techniques as appropriate, variously including the following: *Automated exposure control *Adjustment of mA and/or kV according to patient size (this includes techniques or standardized protocols for targeted exams where dose is matched to indication/reason for exam; i.e. extremities or head) *Use of iterative reconstruction technique DLP: 447 mGy-cm FINDINGS: LUNG BASES: No basilar consolidation or pleural effusion. 0.2 cm calcified granuloma in posterior left lower lobe. Chronic subpleural reticular opacities in the visualized bases without honeycombing. Atherosclerotic calcification and apparent stent of the partially visualized right coronary artery. HEPATOBILIARY: Several old calcified granulomas within the liver. Gallbladder is unremarkable. No dilated bile ducts. PANCREAS: Moderately atrophied. No edema, pancreatic ductal dilatation or mass. SPLEEN: Normal. ADRENAL GLANDS: Normal. KIDNEYS AND URETERS: Kidneys are normal in size. Bilateral renal vascular calcifications. No overt nephrolithiasis. No hydronephrosis or hydroureter. BLADDER: The urinary bladder wall is chronically diffusely thickened and this likely represents mild detrusor muscle hypertrophy. No bladder mass or stone. BOWEL AND PERITONEUM: Stomach is underdistended and grossly normal. No dilated bowel loops. Pancolonic diverticulosis without evidence of diverticulitis. Moderate amount of fecal material in the colon. The rectum is filled with fecal material and is distended up to 7.7 cm transverse. Minimal haziness of some of the perirectal fat. No perirectal fluid collection. No abdominal free fluid or free air. ABDOMINAL WALL: Unremarkable. VASCULATURE: Atherosclerosis of the abdominal aorta, iliac and mesenteric arteries. No aortic aneurysm. LYMPH NODES: No pathologic sized lymph nodes in the abdomen or pelvis. No inguinal lymphadenopathy. PELVIC VISCERA: Unremarkable. MUSCULOSKELETAL: Bones are diffusely osteopenic. Old compression fracture deformity affecting superior and inferior endplates of the L3 vertebral body. No new fractures. No acute abnormalities within the degenerated spine. CT/CT abdomen pelvis wo IV con IMPRESSION: * Pancolonic diverticulosis without evidence of diverticulitis. * Constipation is suspected. The rectum is distended with fecal material. Minimal haziness of perirectal fat could be a manifestation of mild stercoral proctitis. * There is an old compression fracture deformity of the L3 vertebral body.
[2024-04-12 04:37] VITALS: BP 132/90; PULSE 91; O2SAT 95
[2024-04-12 04:52] VITALS: BP 154/78; PULSE 89; RESP 18; O2SAT 98
[2024-04-12 05:00] VITALS: BP 154/78; PULSE 89; RESP 20; TEMP 36.6; O2SAT 99; BMI 20.9
--- NOTE | 2024-04-12 07:23 | ED.ABDPAIN ---
HPI - Abdominal Pain General Chief Complaint: Abdominal Pain Stated Complaint: ACUTE ABDOMINAL PAIN/ SCABIES ! Time Seen by Provider: 04/12/24 07:05 Source: patient, family and EMS Mode of arrival: EMS Limitations: other (dementia) History of Present Illness ED Provider: KAVYA EVANS narrative: 68 yo male with PMH of CAD, CKD, DM2, HTN, dCFH, dementia with mood disorder, recent UTI on 03/26 with admission for confusion here treated with ceftriaxone, chronic rash for a few weeks treated with topical lotions s/p permethrin treatment discarged to [facility] looks like during his stay at [facility] has been placed on PRN O2 he presents today with c/o LLQ pain that was sharp and brief no n/v/d diarrhea states he hasn't had a BM in a while. No fevers. He is at baseline per he recognizes her though still confused since last admission. She is also not sure why he is on oxygen. MD elicited complaint: abdominal pain Pertinent past history: constipation Onset (ago): hour(s) (1) Pain Consistency: now resolved Location: LLQ Severity: moderate Quality: stabbing Migration to: no migration Exacerbating factors: nothing Relieving factors: nothing Associated symptoms: constipation Related Data Home Medications ?Medication ?Instructions ?Recorded ?Confirmed hydralazine 25 mg tablet 25 mg PO BID 06/06/20 03/23/24 lovastatin 20 mg tablet 20 mg PO BEDTIME 06/06/20 03/23/24 venlafaxine 150 mg 150 mg PO DAILY 06/06/20 03/23/24 capsule,extended release 24 hr venlafaxine 75 mg capsule,extended 75 mg PO DAILY 06/06/20 03/23/24 release 24 hr aspirin 81 mg tablet,delayed 1 tab PO DAILY 05/18/22 03/23/24 release glipizide 5 mg tablet 1 tab PO BID 05/18/22 03/23/24 lorazepam 0.5 mg tablet 1 tab PO BID PRN anxiety 05/18/22 03/23/24 olanzapine 20 mg tablet 1 tab PO BEDTIME 05/18/22 03/23/24 Previous Rx's ?Medication ?Instructions ?Recorded atenolol 50 mg tablet 50 mg PO DAILY #0 tabs 07/22/20 insulin lispro 100 unit/mL See Protocol subcut QIDACHS #10 mL 03/18/23 subcutaneous solution (Humalog U-100 Insulin) calamine 8 %-zinc oxide 8 % lotion 1 appl topical QID PRN rash #0 mL 03/26/24 hydroxyzine HCl 10 mg tablet 10 mg PO Q8H PRN Itching #0 tabs 03/26/24 Allergies Allergy/AdvReac Type Severity Reaction Status Date / Time No Known Allergies Allergy Unknown NKA Verified 04/12/24 05:04 Review of Systems Review of Systems Constitutional : No Weight loss, No Fever, No Chills ENT/Mouth : No sore throat, No Rhinorrhea Eyes: No Swelling, No Redness Cardiovascular : No Chest Pain, No SOB, NoEdema Respiratory : No Cough, No Sputum, No Wheezing Gastrointestinal : no Nausea, no Vomiting, no Diarrhea, positive abdominal Pain, No Hematochezia, No Melena, pos constipation Genitourinary : No Dysuria, No Urinary Frequency, No Hematuria, No Urgency Musculoskeletal : No joint pain, No Myalgias, No Joint Swelling Skin : No Skin Lesions, pos rash Neuro : No Weakness, No Numbness, No Dizziness, No Headache Psych : No Anxiety/Panic, No Depression Heme/Lymph: No Bruising, No Lymphadenopathy Endocrine : No Polyuria, No Polydipsia All other systems reviewed and are negative. [facility] Past Medical History Attestation statement: The following information was validated with the patient. Source: old records reviewed Medical History CKD (chronic kidney disease), stage III Type 2 diabetes mellitus CAD (coronary artery disease) CHF (congestive heart failure) Diabetes Abnormal EKG NSTEMI (non-ST elevated myocardial infarction) COVID-19 Blood bacterial culture positive COVID-19 COPD (chronic obstructive pulmonary disease) Hypertension Dizziness CVA (cerebral vascular accident) Surgical History History of percutaneous coronary intervention Social History Social History Household Members: Family Housing: Apartment Do you presently have visiting nurse or other home services: No Alcohol intake: never Comment: temp 98.9 Patient Tobacco Use Status: Never used Tobacco Smoked in Last 30 Days: No e-Cigarette/Vaping Use: Never Used Second Hand Smoke Exposure: No Use of substances other than those prescribed or required for medical reasons: No Advance Directives: Yes Advance Directives on File: Yes Advance Directives Date on File: 07/01/20 Do you have a plan to hurt others: No Plan service: No Current occupational status: retired Physical Exam ED Vital Signs: Vital Signs - 24 hr 04/12/24 04:52 04/12/24 05:00 Temperature 97.8 F Pulse Rate 89 89 Respiratory Rate 18 20 Blood Pressure 154/78 H 154/78 H Pulse Oximetry 98 99 Oxygen Delivery Method Nasal Cannula Nasal Cannula Oxygen Flow Rate 2 BMI result Body Mass Index 20.9 Appearance: Alert. Oriented X2. No acute distress. Eyes: Pupils equal, round and reactive to light. ENT: Pharynx normal. Neck: Normal inspection. Neck supple. CVS: Normal heart rate and rhythm. Pulses normal. Respiratory: No respiratory distress. Breath sounds normal. Abdomen: Soft and nontender. denies pain to palpation Skin: Skin warm and dry. Normal skin color. diffuse ext excoriated rash no signs of cellulitis. Extremities: No lower extremity edema. No calf ttp Neuro: Oriented X2. No motor deficit. No sensory deficit. Medical Decision Making Medical Decision Making [facility] Narrative: 68 yo male with PMH of CAD, CKD, DM2, HTN, dCFH, dementia with mood disorder, recent UTI on 03/26 with admission for confusion here with c/o LLQ pain that is resolved no n/v no fevers at this time will need basic labs, UA, CT scan for constipation. No pain now to suggest acute infection but it is possible and no pain to suggest acute ischemia. Rash is chronic. Differential Diagnosis Differential Diagnoses: The differential diagnosis associated with the presentation includes constipation, UTI, diverticulitis Admission/Observation Consideration of admission/observation: Escalation of care including admission/observation considered not toxic, constipation will not tolerate disimpaction will start with oral meds and enema [facility] Lab Data [facility] Lab Attestation statement: I reviewed the patient's lab results. 04/12/24 07:57 04/12/24 07:57 Labs: Lab Results 04/12/24 Range/Units 07:57 WBC 10.7 (4.8-10.8) X10*3/uL RBC 4.51 L (4.60-5.80) X10*6/uL Hgb 13.8 L (14.0-18.0) g/dl Hct 41.6 L (42.0-52.0) % MCV 92.2 (80.0-98.0) fL MCH 30.6 (27.0-33.0) pg MCHC 33.2 (31.0-36.0) g/dl RDW 16.8 H (11.0-16.0) % Plt Count 205 (160-400) X10*3/uL MPV 8.4 L (9.4-12.4) fL Immature Gran % (Auto) 0.6 H (0.0-0.4) % Neut % (Auto) 77.7 H (45-73) % Lymph % (Auto) 12.8 L (20-40) % Wilson % (Auto) 6.6 (2-11) % Eos % (Auto) 1.5 (0-4) % Baso % (Auto) 0.8 (0-2) % Lymph # (Auto) 1.4 (1.2-4.9) X10*3/uL Wilson # (Auto) 0.7 (0.1-1.2) X10*3/uL Eos # (Auto) 0.2 (0.0-0.4) X10*3/uL Baso # (Auto) 0.1 (0.0-0.2) X10*3/uL Abs Immat Gran (auto) 0.06 H (0.00-0.03) X10*3/uL Absolute Neuts (auto) 8.3 (2.0-8.3) x10*3/uL Absolute Nucleated RBC 0.000 (0.0-0.012) X10*3/uL Nucleated RBC % (auto) 0.0 (0.0-0.2) /100WBC Sodium 144 (135-145) mmol/L Potassium 4.2 (3.3-5.1) mmol/L Chloride 110 H (96-108) mmol/L Carbon Dioxide 22 (22-29) mmol/L Anion Gap 16 (12-20) BUN 15 (9-16) mg/dL Creatinine 1.22 (0.5-1.4) mg/dL Estim Creat Clear Calc 48.1 Estimated GFR 59 Random Glucose 183 H (60-115) mg/dL Calcium 8.9 (8.4-10.2) mg/dL Magnesium 1.8 (1.6-2.6) mg/dL Total Bilirubin 0.3 (0.0-1.0) mg/dL Direct Bilirubin 0.2 (0.0-0.5) mg/dL AST 9 (5-37) U/L ALT 10 (0-40) U/L Alkaline Phosphatase 133 H (39-117) U/L Total Protein 6.5 (6.5-8.0) g/dL Albumin 3.1 L (3.5-5.0) g/dL Lipase 25 (8-78) U/L Urine Color Yellow Urine Appearance Clear Urine pH 7.0 (5.0-9.0) Ur Specific Moody 1.010 (1.005-1.025) Urine Protein 300 (3+) H (Neg-Trace) mg/dL Urine Glucose (UA) 100 H (Negative) mg/dL Urine Ketones Negative (Negative) mg/dL Urine Blood Negative (Negative) Urine Nitrite Negative (Negative) Ur Leukocyte Esterase Small (1+) H (Negative) Urine RBC 0-2 (0-2) /HPF Urine WBC 6-10 H (0-5) /HPF Ur Squamous Epith Cells 0-2 (0-2) /HPF Urine Bacteria None Seen (None Seen) Hyaline Casts 0-2 (0-2) /LPF Independent Interpretation I performed an independent interpretation of an: CT Scan (constipation) Radiology Impression Discussion of test interpretation with radiology: I have reviewed the radiologist's reading. Independent Historian Clinical information obtained from an independent historian. History obtained from or confirmed by: Spouse External Record Review External record reviewed: Inpatient record Discharge Plan Discharge Clinical Impression: Constipation Qualifiers: Constipation type: slow transit constipation Qualified Code(s): K59.01 - Slow transit constipation Patient Disposition: Xfer SNF Transfer Details: [facility] Instructions: Constipation (ED) Additional Instructions: labs, urine normal chest xray normal CT scan constipation noted no obstruction HE NEEDS TO BE ON BOWEL REGIMEN START DOCUSATE 100MG BID SENNA 8.6MG NIGHTLY MIRALAX 17GM DAILY BISACODYL SUPPOSITORY 10MG DAILY FOR THE NEXT 5 DAYS PLEASE START THIS REGIMEN TONIGHT AND CONTINUE FOR THE NEXT TWO WEEKS ONLY NEEDS SUPPOSITORY FOR THE NEXT 5 DAYS IF NO BOWEL MOVEMENT IN THE NEXT 24 HOURS PLEASE SUPPLEMENT WITH FLEET ENEMA X 2 Prescriptions: No Action venlafaxine 75 mg capsule,extended release 24hr 75 mg PO DAILY venlafaxine 150 mg capsule,extended release 24hr 150 mg PO DAILY hydralazine 25 mg tablet 25 mg PO BID lovastatin 20 mg tablet 20 mg PO BEDTIME atenolol 50 mg tablet 50 mg PO DAILY Qty: 0 0RF aspirin 81 mg tablet,delayed release (DR/EC) 1 tab PO DAILY lorazepam 0.5 mg tablet 1 tab PO BID PRN (Reason: anxiety) olanzapine 20 mg tablet 1 tab PO BEDTIME glipizide 5 mg tablet 1 tab PO BID insulin lispro [Humalog U-100 Insulin] 100 unit/mL Solution See Protocol subcut QIDACHS Qty: 10 0RF Protocol: Insulin Correction Scale Less than or equal to 110 ---- Give (units): 0 111 to 150 Give (units): 0 151 to 200 Give (units): 2 201 to 250 Give (units): 4 251 to 300 Give (units): 6 301 to 350 Give (units): 8 Greater than 350 Give (units): 10 Call MD if Blood Glucose > : 350 hydroxyzine HCl 10 mg Tablet 10 mg PO Q8H PRN (Reason: Itching) Qty: 0 0RF calamine-zinc oxide 8-8 % Lotion 1 appl topical QID PRN (Reason: rash) Qty: 0 0RF Protocol: Apply to: Apply to: rash Print Language: Croatian
[2024-04-12 08:02] LABS: MANUAL DIFF FLAG NO
[2024-04-12 08:04] LABS: Appearance Urine Clear; Color Urine Yellow; Glucose Urine UA 100 mg/dL (Negative); Leukocyte Esterase Urine Small (1+) (Negative); Nitrite Urine Negative (Negative); UMIC TRIGGER UACC YES; Urine Blood Negative (Negative); Urine Ketones Negative (Negative); Urine Protein 300 (3+) mg/dL (Neg-Trace)
[2024-04-12 08:06] LABS: Basophils Absolute Auto 0.1 X10*3/uL (0.0-0.2); Basophils Percent Auto 0.8 % (0-2); Eosinophils Absolute Auto 0.2 X10*3/uL (0.0-0.4); Eosinophils Percent Auto 1.5 % (0-4); Hematocrit 41.6 % (42.0-52.0); Hemoglobin 13.8 g/dl (14.0-18.0); Imm Gran Abs Auto 0.06 X10*3/uL (0.00-0.03); Imm Gran Pct Auto 0.6 % (0.0-0.4); Lymphocytes Absolute Auto 1.4 X10*3/uL (1.2-4.9); Lymphocytes Percent Auto 12.8 % (20-40); Mean Corpuscular HGB Conc 33.2 g/dl (31.0-36.0); Mean Corpuscular Hemoglobin 30.6 pg (27.0-33.0); Mean Corpuscular Volume 92.2 fL (80.0-98.0); Mean Platelet Volume 8.4 fL (9.4-12.4); Monocytes Absolute Auto 0.7 X10*3/uL (0.1-1.2); Monocytes Percent Auto 6.6 % (2-11); Neutrophils Absolute Auto 8.3 x10*3/uL (2.0-8.3); Neutrophils Percent Auto 77.7 % (45-73); Platelet Count 205 X10*3/uL (160-400); Red Blood Count 4.51 X10*6/uL (4.60-5.80); Red Cell Distribution Width 16.8 % (11.0-16.0); White Blood Count 10.7 X10*3/uL (4.8-10.8)
[2024-04-12 08:09] LABS: Bacteria Urine None Seen (None Seen); Hyaline Casts Urine 0-2 /LPF (0-2); RBC Urine 0-2 /HPF (0-2); Squamous Epithelial Cell Urine 0-2 /HPF (0-2); UACC Culture Trigger YES
[2024-04-12 08:16] LABS: Alanine Aminotransferase 10 U/L (0-40); Albumin Level 3.1 g/dL (3.5-5.0); Alkaline Phosphatase 133 U/L (39-117); Anion Gap 16 (12-20); Aspartate Amino Transferase 9 U/L (5-37); Bilirubin Direct 0.2 mg/dL (0.0-0.5); Bilirubin Total 0.3 mg/dL (0.0-1.0); Blood Urea Nitrogen 15 mg/dL (9-16); Calcium 8.9 mg/dL (8.4-10.2); Carbon Dioxide 22 mmol/L (22-29); Chloride 110 mmol/L (96-108); Creatinine Clr Calc Pharmacy 48.1; Estimated Glomerular Filt Rate 59; Glucose Random 183 mg/dL (60-115); Lipase 25 U/L (8-78); Magnesium 1.8 mg/dL (1.6-2.6); Potassium 4.2 mmol/L (3.3-5.1); Sodium 144 mmol/L (135-145); Total Protein 6.5 g/dL (6.5-8.0)
[2024-04-12 09:36] VITALS: BP 165/98; PULSE 82; RESP 16; TEMP 36.4; O2SAT 93
[2024-04-12] MEDS: Docusate Sodium 100 MG CAPSULE PO (09:42)
[2024-04-12] MEDS: Sennosides 8.6 MG TABLET PO (09:42)
[2024-04-12] MEDS: Sodium Phosphate,Mono-Dibasic 133 ML ENEMA PR (09:42)
[2024-04-12 11:08] VITALS: BP 140/80; PULSE 60; RESP 16; TEMP 36.9; O2SAT 94
--- NOTE | 2024-04-12 11:13 | PC.NURSE ---
This RN did attempt to give report to [facility] and was on hold for 10 minutes and no report was given
== END 2024-04-12 11:14 | disposition skilled nursing facility (03) ==
PROVIDERS: Emergency Provider Emergency Medicine; PCP Family Medicine
DX: K59.01 Slow transit constipation (principal); R10.32 Left lower quadrant pain; B86 Scabies; I13.0 Hypertensive heart and chronic kidney disease with heart failure and stage 1 through stage 4 chronic kidney disease, or unspecified chronic kidney disease; R05.9 Cough, unspecified; E11.22 Type 2 diabetes mellitus with diabetic chronic kidney disease; N18.30 Chronic kidney disease, stage 3 unspecified; Z79.899 Other long term (current) drug therapy
CPT/HCPCS: 36415; 71045; 74176; 80048; 80076; 81001; 83690; 83735; 85025; 87086; 87088; 87186; 99284

== ENCOUNTER 2024-05-12 20:12 | Emergency (ER) | payer MEDICARE, OTHER, SELFPAY ==
[2024-05-12 21:35] VITALS: BMI 19.8
--- NOTE | 2024-05-12 22:35 | ED.CPR ---
HPI - CPR General Chief Complaint: Cardiac Arrest/CPR Stated Complaint: cardiac arrest Time Seen by Provider: 05/12/24 20:34 Source: EMS Mode of arrival: EMS Limitations: other History of Present Illness ED Provider: Dr. Fabiana Barros HPI narrative: patient comes to the emergency room Via ambulance in cardiac arrest. According to EMS, prior to EMS arrival. Patient called 911 because her was found to be unresponsive. The patient's states that earlier today the patient was complaining of shortness of breath. The patient's states that patient has been doing this a lot lately. Sometimes he goes to sleep. Patient's states that when she tells him that she is going to call 911 and bring him to the hospital, patient wakes up immediately. This time, the patient did not wake up. Patient called immediately 911. corking machine operator asked the patient to start CPR which she did. When EMS arrived, they to cover. Patient was in asystole. Prior to arrival to the ED patient was put on the Blayne device for compressions, IO established, total of 5 epinephrine were given along with 3 mL of fluid. Related Data Home Medications ?Medication ?Instructions ?Recorded ?Confirmed hydralazine 25 mg tablet 25 mg PO BID 06/06/20 03/23/24 lovastatin 20 mg tablet 20 mg PO BEDTIME 06/06/20 03/23/24 venlafaxine 150 mg 150 mg PO DAILY 06/06/20 03/23/24 capsule,extended release 24 hr venlafaxine 75 mg capsule,extended 75 mg PO DAILY 06/06/20 03/23/24 release 24 hr aspirin 81 mg tablet,delayed 1 tab PO DAILY 05/18/22 03/23/24 release glipizide 5 mg tablet 1 tab PO BID 05/18/22 03/23/24 lorazepam 0.5 mg tablet 1 tab PO BID PRN anxiety 05/18/22 03/23/24 olanzapine 20 mg tablet 1 tab PO BEDTIME 05/18/22 03/23/24 Previous Rx's ?Medication ?Instructions ?Recorded atenolol 50 mg tablet 50 mg PO DAILY #0 tabs 07/22/20 insulin lispro 100 unit/mL See Protocol subcut QIDACHS #10 mL 03/18/23 subcutaneous solution (Humalog U-100 Insulin) calamine 8 %-zinc oxide 8 % lotion 1 appl topical QID PRN rash #0 mL 03/26/24 hydroxyzine HCl 10 mg tablet 10 mg PO Q8H PRN Itching #0 tabs 03/26/24 Allergies Allergy/AdvReac Type Severity Reaction Status Date / Time No Known Allergies Allergy Unknown NKA Verified 05/12/24 21:40 Review of Systems Review of Systems: Yes Unobtainable due to mental condition [facility] Past Medical History Medical History CKD (chronic kidney disease), stage III Type 2 diabetes mellitus CAD (coronary artery disease) CHF (congestive heart failure) Diabetes Abnormal EKG NSTEMI (non-ST elevated myocardial infarction) COVID-19 Blood bacterial culture positive COVID-19 COPD (chronic obstructive pulmonary disease) Hypertension Dizziness CVA (cerebral vascular accident) Surgical History History of percutaneous coronary intervention Social History Social History Household Members: Family Housing: Apartment Do you presently have visiting nurse or other home services: No Alcohol intake: never Comment: temp 98.9 Patient Tobacco Use Status: Never used Tobacco e-Cigarette/Vaping Use: Never Used Second Hand Smoke Exposure: No Advance Directives: Yes Advance Directives on File: Yes Advance Directives Date on File: 07/01/20 service: No Current occupational status: retired Physical Exam Vital Signs: Vital Signs: BMI result Body Mass Index 19.8 Const: Other: Appearance: unresponsive Eyes: bilateral fixed dilated unresponsive to light ENT: ET tube in place Neck: Normal inspection. Neck supple. No lymph nodes noted. No crepitus CVS: CPR in progress Respiratory: ventilated, intubated Abdomen: distended Skin: pale and mottled Extremities: No lower extremity edema. No Lacerations. No Rash Neuro: unresponsive Psych: unresponsive Medical Decision Making Medical Decision Making MDM Narrative: on arrival, patient was in asystole. A few more rounds of CPR and epinephrine were given. Eventually, patient was in PA. With bedside ultrasound, we were able to visualize the heart, there is no cardiac activity. - After 50 minutes of CPR, time of was called At 20:29 - patient's family in the family waiting room, they have been informed - reviewing patient's medical chart, patient had a significant cardiac history, type 2 diabetes, CKD stage 3, CHF, NSTEMI - overall, seems that patient from nodule causes, no obvious signs of trauma. I do not believe it is necessary to called the medical staff director Differential Diagnosis Differential Diagnoses: The differential diagnosis associated with the presentation includes Critical Care Time Critical Care Time Critical Care Time: Yes Total Critical Care Time: 60 Attestation: I have personally provided critical care time. Time includes review of lab data, radiology results, discussion with consultants, and monitoring for potential decompensation. Intervention performed as documented. Discharge Plan Discharge Clinical Impression: Cardiac arrest Patient Disposition: Date/Time: 05/12/24 20:29
[2024-05-13 00:13] LABS: Glucose, Whole Blood 209 mg/dL (60-115)
--- NOTE | 2024-05-13 00:13 | PC.NURSE ---
Patient arrived in cardiac arrest please see cardiac arrest paperwork for further documentation. patient did at 2028 on 05/12/2024. Family notified and at bedside. [facility] contacted and placed a hold on the body due to potential donation. They will be in contact with the family. [facility]
== END 2024-05-13 00:31 | disposition expired ==
PROVIDERS: Emergency Provider Emergency Medicine
DX: I46.9 Cardiac arrest, cause unspecified (principal); R06.02 Shortness of breath; I25.10 Atherosclerotic heart disease of native coronary artery without angina pectoris; R40.4 Transient alteration of awareness; Z79.899 Other long term (current) drug therapy
CPT/HCPCS: 82947; 99283; 99285; J0171